=== PATIENT | male | born 1965 | race Caucasian/White ===

== ENCOUNTER → 2017-02-10 | Outpatient (CLI) | payer BC, SELFPAY | PROVIDERS: Family Provider Nurse Practitioner Family; Referring Provider Nurse Practitioner Family; Visit Provider Nurse Practitioner Family | DX: M79.89 Other specified soft tissue disorders (principal) | CPT/HCPCS: 73130 ==

== ENCOUNTER → 2017-04-04 13:34 | Outpatient (CLI) | payer BC, SELFPAY ==
--- NOTE | 2017-04-04 13:47 | XR_ITS ---
XR hip BI w PEL1V CLINICAL INDICATION: ITS.REASON: hip pain ORDERING PHYSICIAN: Gloria Warren PATIENT AGE: 51 years COMPARISON: None FINDINGS: No fracture or dislocation. No lytic or blastic change. Degenerative change IMPRESSION: Negative bilateral hips
[2017-04-04 15:33] LABS: Alanine Aminotransferase 40 U/L (12-78); Albumin Level 4.1 gm/dL (3.4-5.0); Albumin/Globulin Ratio 1.1 (1.1-1.8); Alkaline Phosphatase 66 U/L (46-116); Anion Gap 12.8 mEq/L (5-15); Aspartate Amino Transferase 15 U/L (15-37); Bilirubin,Total 0.3 mg/dL (0.2-1.0); Blood Urea Nitrogen 15 mg/dL (7-18); Calcium 9.3 mg/dL (8.5-10.1); Carbon Dioxide 28 mmol/L (21.0-32.0); Chloride 101 mmol/L (98-107); Chol/HDL Ratio 7.8 (1-3.5); Cholesterol 242 mg/dL (140-200); Estimated Glomerular Filt Rate 58 ml/min (>60); GFR (African American) 70 ML/MIN (>60); Globulin 3.6 gm/dl (1.3-3.2); Glucose 249 mg/dL (74-106); HDL Cholesterol 31 mg/dL (27-67); Potassium 4.8 mmoL/L (3.5-5.1); Sodium 137 mmol/L (136-145); Total Protein,Serum 7.7 gm/dL (6.4-8.2)
[2017-04-04 15:41] LABS: Triglycerides 742 mg/dL (30-200)
== END ==
PROVIDERS: PCP Nurse Practitioner Family; Visit Provider Nurse Practitioner Family
DX: E78.5 Hyperlipidemia, unspecified (principal); N28.9 Disorder of kidney and ureter, unspecified; R52 Pain, unspecified
CPT/HCPCS: 36415; 73521; 80053; 80061

== ENCOUNTER → 2017-04-27 17:14 | Outpatient (REF) | payer BC, SELFPAY ==
[2017-04-27 19:30] LABS: Hemoglobin A1C 9.4 % (0.0-7.0)
== END ==
LOC: LAB 17:14
PROVIDERS: Visit Provider Nurse Practitioner Family
DX: E11.9 Type 2 diabetes mellitus without complications (principal)
CPT/HCPCS: 83036

== ENCOUNTER → 2017-05-18 09:08 | Outpatient (CLI) | payer BC, MEDICAID, SELFPAY | PROVIDERS: Family Provider Nurse Practitioner Family; PCP Nurse Practitioner Family; Visit Provider Emergency Medicine | DX: Z71.3 Dietary counseling and surveillance (principal); E11.9 Type 2 diabetes mellitus without complications | CPT/HCPCS: 97802; G0108 ==

== ENCOUNTER → 2017-07-07 07:59 | Outpatient (CLI) | payer MEDICAID, SELFPAY ==
[2017-07-07 08:21] LABS: Blood Urea Nitrogen 21 mg/dL (7-18); Creatinine,Serum 1.55 mg/dL (0.70-1.30); Estimated Glomerular Filt Rate 47 ml/min (>60); GFR (African American) 57 ML/MIN (>60)
[2017-07-07 08:27] LABS: Alanine Aminotransferase 44 U/L (12-78); Albumin Level 3.7 gm/dL (3.4-5.0); Alkaline Phosphatase 56 U/L (46-116); Aspartate Amino Transferase 19 U/L (15-37); Bilirubin,Direct 0.1 mg/dL (0.0-0.2); Bilirubin,Indirect 0.2 mg/dL (0.0-0.9); Bilirubin,Total 0.3 mg/dL (0.2-1.0); Chol/HDL Ratio 5.3 (1-3.5); Cholesterol 168 mg/dL (140-200); HDL Cholesterol 32 mg/dL (27-67); LDL Cholesterol 71 mg/dL (0-130); Total Protein,Serum 7.6 gm/dL (6.4-8.2); Triglycerides 327 mg/dL (30-200); VLDL Cholesterol 65 mg/dL (0-40)
--- NOTE | 2017-07-07 08:44 | MR_ITS ---
MR foot RT wo con Ordering Physician: Gloria Warren Patient Age: 52 years: Male HISTORY: ITS.REASON: foot mass - knot upon the dorsal aspect of right foot. This is been there for up to 3 years Ankle pain with most significant Pain is lateral side of ankle.. TECHNIQUE: Multiplanar multisequence imaging performed on 1.5 [place] MR. COMPARISON : No right foot plain film studies in PACS Plain films left foot 10/26/2006 FINDINGS Prominent fluid is seen surrounding the extensor hallucis longus tendon-here along the dorsal aspect of the foot and extending into to the ankle. This fluid collection becomes most pronounced at the dorsal aspect mid foot were skin marker was placed. This correlates with the palpable abnormality. Fluid in this tendon and tapers following the tendon down to the level of the head of first metatarsal..... The tendon itself seems to be normal size but this may reflect some inflammation or possibly synovial cyst formation about this tendon The most prominent fluid collection at filling the tendon sheath is just distal to where this extensor hallucis longus tendon passes over a abnormal large osseous fragment off the anterior aspect of ankle joint/tibia as discussed below.. Suspect this Latter features yields inflammation along this tendon sheath. --------- The other major finding in this patient are the Severe Arthritic Changes at the Right Ankle. This study was designed to evaluate the foot but sagittal coronal and oblique axial images designed for foot are included and demonstrate severe abnormalities at the ankle.: Prominent osteochondral irregularities with multiple osteochondral defect seen throughout the dome of the talus. Associated reactive bone signal changes throughout the dome of the talus with cartilage loss at the ankle mortise. Chondral thinning and scuffing ankle joint..... Also note a reactive bone signal changes at distal tibia & at the tip of the lateral malleolus at the lateral ankle joint related to the severe arthritic changes here. Even more striking is the large osseous fragment (21 mm ) seen off anterior aspect of the distal tibia and ankle joint,. This may reflect an old fracture and currently resides superior to the neck and distal talus on sagittal image 14. Period on question there may been old fracture off the anterior margin of the distal talus versus large dystrophic bone formation. The abnormal talar dome seems slightly anteriorly offset relative to the distal tibia which may reflect some laxity which is developed with arthritic changes here Also striking is the prominent fragmented dystrophic bone or fragmentation old trauma at anterior aspect of the distal fibula. Sagittal image 8 and 7. The main osseous fragment here measuring 24 mm height.. This requires clinical and correlation. Is there history of diabetes as these could reflect developing Charcot/ neuropathic changes. Plain film correlation of bilateral foot and ankle. Suggest podiatry follow-up There is soft tissue edema overlying this lateral malleolus and continuing into the lateral aspect of lateral foot. The peroneal brevis and longus tendons appear intact. There at the medial ankle the tibialis posterior tendon on appears intact overall although does have a slightly hartman ill-defined appearance just as it attaches onto the navicular but overall I believe it is intact ------IMPRESSION-------- 1. The palpable area dorsal aspect of right foot reflects prominent fluid surrounding the extensor hallucis longus tendon-. This likely due to due to inflammation or tendon and tendon sheath as it it passes over the abnormal large bone fragment anterior aspect of tibia described below.. (Less likely synovial cyst formation.) 2. More striking findings in the aubrey
== END ==
PROVIDERS: Internal Medicine Cardiovascular Disease; Family Provider Nurse Practitioner Family; PCP Nurse Practitioner Family; Visit Provider Nurse Practitioner Family
DX: R22.40 Localized swelling, mass and lump, unspecified lower limb (principal); M79.671 Pain in right foot
CPT/HCPCS: 36415; 73718; 80061; 80076; 82565; 84520

== ENCOUNTER 2017-08-15 15:17 | Emergency (ER) | payer MEDICAID, SELFPAY ==
[2017-08-15 15:23] VITALS: BP 180/95; PULSE 74; RESP 18; TEMP 36.3; O2SAT 96; BMI 31.0
--- NOTE | 2017-08-15 15:57 | HMH.EDEYEP ---
ED Disposition Clinical Impression: Foreign body of left eye, Corneal abrasion, left Disposition: Home, Self-Care Condition on Discharge: Fair Additional Instructions: 1- cipro eye drops q 4 2- cold compresses. 3- see Dr Salazar in the morning. 4- return if not better or new sx. Prescriptions: Ciprofloxacin HCl [Ciprofloxacin 0.3% Ophth Soln] 1 - 2 drops OP Q4HWA #1 ml Referrals: Gloria Warren APRN [Primary Care Provider] - - Critical Care Critical Care Time: No Attestation: On 08/15/17, the high probability of a clinically significant, sudden or life threatening deterioration of the following system(s) required my full and direct attention, intervention and personal management. The time I documented below is in addition to time spent performing reported procedures but includes the following listed in this critical care notation. Medical Decision Making - Teddy Inquiry Pt receiving controlled substance: No Teddy was queried for this patient: No Vital Signs: 08/15/17 15:23 Temperature 97.4 F L Temperature Source Oral Pulse Rate [Right Radial] 74 Respiratory Rate 18 Blood Pressure [Right Arm] 180/95 Blood Pressure Mean [Right Arm] 123 Blood Pressure Source [Right Arm] Automatic Cuff Blood Pressure Position [Right Arm] Sitting 02 Sat by Pulse Oximetry 96 Oxygen Delivery Method Room Air Medical Decision Narrative: Using tetracaine and fluorescein stain with direct visualization I removed a dark foreign body with a Q-tip. The patient felt better instantly. he was instructed for Cipro ofloxacin eyedrop every 4 hours until seen by his forcer maker Dr. Mullins in the morning. Eye Problem HPI - General Chief complaint: Eye Problems Stated complaint: AO [id number] FB in left eye Time Seen by Provider: 08/15/17 15:25 Mode of Arrival: Ambulatory Limitations: No Limitations Description of Symptoms (Recalled from ER Triage Doc. by RN): Foreign object left eye - History of Present Illness HPI Narrative: 52 years old white male who claims that 5 days ago while he was folding laundry something got in his eye. He went to see his primary care physician Chin Warren who sent him to the ED. he has an eye doctor but he does not like to go to [facility]. He denies blurry vision diplopia or eye discharge. chief complaint: foreign body Onset (ago): day(s) (5 days) Onset description: sudden Duration: constant Location: left eye Eye Symptoms: foreign body sensation Place: home Mechanism: none Associated symptoms: none Treatments Prior to Arrival: none - Related Data Patient tetanus UTD: No Previous Rx's Medication Instructions Recorded fenofibric acid (choline) 45 mg 45 mg PO QHS #90 cap 04/11/17 capsule,delayed release aspirin 81 mg tablet,delayed 81 mg PO DAILY #90 tab 05/11/17 release atorvastatin 80 mg tablet 80 mg PO DAILY #90 tab 05/11/17 bupropion HCl SR 150 mg tablet,12 150 mg PO BID #180 tab 05/11/17 hr sustained-release carvedilol 25 mg tablet 25 mg PO BID #180 tab 05/11/17 clopidogrel 75 mg tablet 75 mg PO DAILY #90 tab 05/11/17 glipizide 5 mg tablet 5 mg PO BID #180 tab 05/11/17 losartan 100 1 tab PO DAILY #90 tab 05/11/17 mg-hydrochlorothiazide 25 mg tablet amlodipine 5 mg tablet 5 mg PO DAILY #90 tab 06/29/17 Ciprofloxacin HCl [Ciprofloxacin 1 - 2 drops OP Q4HWA #1 ml 08/15/17 0.3% Ophth Soln] isosorbide mononitrate ER 60 mg 60 mg PO QAM #90 tab 08/15/17 tablet,extended release 24 hr metformin 1,000 mg tablet 1,000 mg PO BID #180 tab 08/15/17 Allergies Allergy/AdvReac Type Severity Reaction Status Date / Time No Known Allergies Allergy Verified 08/15/17 14:31 [facility] History I have reviewed the patient's past medical history: Yes Medical History: Reports:: Coronary Artery Disease, Diabetes Mellitus Type 2, Hyperlipidemia, Hypertension Other Surgeries: Yes: Cardiac Surgery, Coronary Stent (X5), Other Amputation: No Fractures: No Comment: VASECTOMY -
--- NOTE | 2017-08-15 16:00 | ED_ITS ---
ED Disposition Clinical Impression: Foreign body of left eye, Corneal abrasion, left Disposition: Home, Self-Care Condition on Discharge: Fair Additional Instructions: 1- cipro eye drops q 4 2- cold compresses. 3- see Dr Salazar in the morning. 4- return if not better or new sx. Prescriptions: Ciprofloxacin HCl [Ciprofloxacin 0.3% Ophth Soln] 1 - 2 drops OP Q4HWA #1 ml Referrals: Gloria Warren APRN [Primary Care Provider] - - Critical Care Critical Care Time: No Attestation: On 08/15/17, the high probability of a clinically significant, sudden or life threatening deterioration of the following system(s) required my full and direct attention, intervention and personal management. The time I documented below is in addition to time spent performing reported procedures but includes the following listed in this critical care notation. Medical Decision Making - Teddy Inquiry Pt receiving controlled substance: No Teddy was queried for this patient: No Vital Signs: 08/15/17 15:23 Temperature 97.4 F L Temperature Source Oral Pulse Rate [Right Radial] 74 Respiratory Rate 18 Blood Pressure [Right Arm] 180/95 Blood Pressure Mean [Right Arm] 123 Blood Pressure Source [Right Arm] Automatic Cuff Blood Pressure Position [Right Arm] Sitting 02 Sat by Pulse Oximetry 96 Oxygen Delivery Method Room Air Medical Decision Narrative: Using tetracaine and fluorescein stain with direct visualization I removed a dark foreign body with a Q-tip. The patient felt better instantly. he was instructed for Cipro ofloxacin eyedrop every 4 hours until seen by his guest experience captain Dr. Mullins in the morning. Eye Problem HPI - General Chief complaint: Eye Problems Stated complaint: AO [id number] FB in left eye Time Seen by Provider: 08/15/17 15:25 Mode of Arrival: Ambulatory Limitations: No Limitations Description of Symptoms (Recalled from ER Triage Doc. by RN): Foreign object left eye - History of Present Illness HPI Narrative: 52 years old white male who claims that 5 days ago while he was folding laundry something got in his eye. He went to see his primary care physician Chin Warren who sent him to the ED. he has an eye doctor but he does not like to go to [facility]. He denies blurry vision diplopia or eye discharge. chief complaint: foreign body Onset (ago): day(s) (5 days) Onset description: sudden Duration: constant Location: left eye Eye Symptoms: foreign body sensation Place: home Mechanism: none Associated symptoms: none Treatments Prior to Arrival: none - Related Data Patient tetanus UTD: No Previous Rx's Medication Instructions Recorded fenofibric acid (choline) 45 mg 45 mg PO QHS #90 cap 04/11/17 capsule,delayed release aspirin 81 mg tablet,delayed 81 mg PO DAILY #90 tab 05/11/17 release atorvastatin 80 mg tablet 80 mg PO DAILY #90 tab 05/11/17 bupropion HCl SR 150 mg tablet,12 150 mg PO BID #180 tab 05/11/17 hr sustained-release carvedilol 25 mg tablet 25 mg PO BID #180 tab 05/11/17 clopidogrel 75 mg tablet 75 mg PO DAILY #90 tab 05/11/17 glipizide 5 mg tablet 5 mg PO BID #180 tab 05/11/17 losartan 100 1 tab PO DAILY #90 tab 05/11/17 mg-hydrochlorothiazide 25 mg tablet amlodipine 5 mg tablet 5 mg PO DAILY #90 tab 06/29/17 Ciprofloxacin HCl [Ciprofloxacin 1 - 2 drops OP Q
--- NOTE | 2017-08-15 16:10 | PC.NURSE ---
appt with dr Salazar on 08/16/17 at 0900 @ [facility]
[2017-08-15 16:19] VITALS: BP 146/83; PULSE 63; RESP 18; TEMP 36.7; O2SAT 98
== END 2017-08-15 16:15 | disposition home or self-care (01) ==
PROVIDERS: Emergency Provider Emergency Medicine; Family Provider Nurse Practitioner Family; PCP Nurse Practitioner Family
DX: S05.02XA Injury of conjunctiva and corneal abrasion without foreign body, left eye, initial encounter (principal); Z79.82 Long term (current) use of aspirin; F17.210 Nicotine dependence, cigarettes, uncomplicated
CPT/HCPCS: 99281

== ENCOUNTER → 2017-08-28 11:26 | Outpatient (CLI) | payer MEDICAID, SELFPAY ==
--- NOTE | 2017-08-28 11:38 | XR_ITS ---
XR foot wt bearing RT 3V HISTORY: Pain, cyst, ITS.REASON: cyst ORDERING PHYSICIAN: Lizzie Olson DPM PATIENT AGE: 52 years COMPARISON: None FINDINGS: There is a prominent lobulated calcific density along the anterior aspect of the ankle joint measuring 2.8 x 2.2 cm. This is well-circumscribed and described on previous MRI. An additional bony fragment is present along the lateral aspect of the ankle joint measuring 2.3 cm. This is better demonstrated on the MRI. Present in the anterior aspect of the mid foot anterior to the cuneiforms consistent with a fluid collection as seen on MRI. Irregularity of the talar dome. Mild hypertrophic change present metatarsal. There is osteoarthritis of the ankle joint with decrease in space. IMPRESSION: Prominent lobulated bony fragments along the anterior and lateral aspect of the ankle joint Soft tissue swelling of the midfoot. Osteoarthritis ankle with cortical irregularity of the dome of the talus with osteosclerosis
--- NOTE | 2017-08-28 11:38 | XR_ITS ---
XR foot wt bearing LT 3V HISTORY: Foot cyst ITS.REASON: cyst ORDERING PHYSICIAN: Lizzie Olson DPM PATIENT AGE: 52 years COMPARISON: 10/26/2006 FINDINGS: No fracture or dislocation. No lytic or blastic change. There is normal mineralization.. The joint spaces are well-preserved. No significant degenerative/arthritic changes. No erosive changes evident. There is minimal spurring along the anterior aspect of the talus IMPRESSION: Negative, no acute finding
--- NOTE | 2017-08-28 11:38 | XR_ITS ---
XR ankle wt bearing LT min 3V HISTORY: ITS.REASON: cyst ORDERING PHYSICIAN: Lizzie Olson DPM PATIENT AGE: 52 years Comparison: None FINDINGS: No fracture or dislocation. No lytic or blastic change. There is normal mineralization.. The joint spaces are well-preserved. No significant degenerative/arthritic changes. No erosive changes evident. IMPRESSION: Negative ankle, no acute finding
--- NOTE | 2017-08-28 11:38 | XR_ITS ---
XR ankle wt bearing RT min 3V HISTORY: ITS.REASON: cyst ORDERING PHYSICIAN: Lizzie Olson DPM PATIENT AGE: 52 years Comparison: None FINDINGS: There is a prominent lobulated calcific density along the anterior aspect of the ankle joint measuring 2.8 x 2.2 cm. This is well-circumscribed and described on previous MRI. An additional bony fragment is present along the lateral aspect of the ankle joint measuring 2.3 cm. This is better demonstrated on the MRI. Present in the anterior aspect of the mid foot anterior to the cuneiforms consistent with a fluid collection as seen on MRI. Irregularity of the talar dome. Mild hypertrophic change present metatarsal. There is osteoarthritis of the ankle joint with decrease in space. IMPRESSION: Prominent lobulated bony fragments along the anterior and lateral aspect of the ankle joint Soft tissue swelling of the midfoot. Osteoarthritis ankle with cortical irregularity of the dome of the talus with osteosclerosis
== END ==
PROVIDERS: Visit Provider Podiatrist
DX: M67.471 Ganglion, right ankle and foot (principal)
CPT/HCPCS: 73610; 73630

== ENCOUNTER → 2017-09-05 08:32 | Outpatient (CLI) | payer MEDICAID, SELFPAY ==
--- NOTE | 2017-09-05 08:34 | US_ITS ---
US Arterial Ankle Brachial Ind COMPARISON: None HISTORY: Diabetes, claudication both lower legs, current smoking history hyperlipidemia hypertension rest pain both feet TECHNIQUE: Segmental blood pressure test and Doppler waveforms of the lower extremities FINDINGS: The blood pressure right arm is 139. Pressures in the right leg show the thigh be 138 calf 146 posterior tibial 163 and dorsalis pedis 146. The digital pressure is 140. Doppler waveforms are essentially normal. The right JOANNA is 1.17. The left brachial pressure is 134. Pressures left leg show the thigh be 146 calf 150 posterior tibial 163 and dorsalis pedis 152. The digital pressure is 159. Doppler waveforms appear normal. The left JOANNA is 1.17 IMPRESSION: Normal study
== END ==
PROVIDERS: Family Provider Nurse Practitioner Family; PCP Emergency Medicine; Visit Provider Podiatrist
DX: R42 Dizziness and giddiness (principal)
CPT/HCPCS: 93922

== ENCOUNTER → 2017-09-21 15:53 | Outpatient (CLI) | payer MEDICAID, SELFPAY ==
[2017-09-21 15:58] LABS: Microscopic, Urine URINE MICROSCOPIC (MICROSCOPIC)
[2017-09-21 16:10] LABS: Basophils % 0.5 % (0.1-2.0); Eosinophils # 0.2 K/mm3 (0.0-0.4); Eosinophils % 2.8 % (0.1-12.0); Hematocrit 39.8 % (42.0-52.0); Hemoglobin 13.4 g/dL (14.1-18.0); Lymphocytes # 1.9 K/mm3 (0.7-4.5); Lymphocytes % 22.4 K/mm3 (10-50); Mean Corpuscular HGB Conc 33.7 g/dL (31.8-35.4); Mean Corpuscular Hemoglobin 31.9 pg (27.0-31.2); Mean Corpuscular Volume 94.8 fl (80-94); Mean Platelet Volume 7.2 fl (7.4-10.4); Monocytes # 0.5 K/mm3 (0.1-1.0); Monocytes % 5.6 % (1.7-9.3); Neutrophils # 5.9 K/mm3 (1.8-7.8); Neutrophils % 68.7 % (37.0-80.0); Platelet Count 289 K/mm3 (142-424); Red Blood Count 4.19 M/mm3 (4.60-6.20); Red Cell Distribution Width 13.2 % (11.5-17.5); White Blood Count 8.6 K/mm3 (4.8-10.8)
[2017-09-21 16:25] LABS: Appearance,Urine CLEAR (Clear); Bilirubin,Urine Negative (Negative); Blood, Urine Negative (Negative); Color,Urine YELLOW (Yellow); Glucose,Urine (UA) 3+ (Negative); Ketones,Urine Negative (Negative); Leukocyte Esterase,Urine Negative (Negative); Nitrate,Urine Negative (Negative); Protein,Urine Negative (Negative); Specific Gravity, Urine 1.025 (1.005-1.030); Urobilinogen,Urine 0.2 EU/dl (0.2)
[2017-09-21 17:02] LABS: Bacteria,Urine Trace /lpf; Mucus,Urine 1+ /lpf; RBC,Urine Occasional #/hpf (0-3); Squamous Epithelial Cell,Urine Occasional #/hpf (0-5); WBC,Urine Occasional #/hpf (0-3)
[2017-09-21 17:19] LABS: Anion Gap 9.4 mEq/L (5-15); Blood Urea Nitrogen 26 mg/dL (7-18); Carbon Dioxide 30 mmol/L (21.0-32.0); Chloride 103 mmol/L (98-107); Creatinine,Serum 1.38 mg/dL (0.70-1.30); Estimated Glomerular Filt Rate 54 ml/min (>60); GFR (African American) 65 ML/MIN (>60); Glucose 284 mg/dL (74-106); Phosphorous 3.7 mg/dL (2.4-4.9); Potassium 4.4 mmoL/L (3.5-5.1); Sodium 138 mmol/L (136-145)
[2017-09-21 19:07] LABS: Creatinine,Urine Random 148 mg/dL (20-320); Total Protein,Urine Random 15.6 mg/dL (0.0-11.9)
[2017-09-23 18:05] LABS: Vitamin D 25 Hydroxy 27.7 ng/mL (30.0-100.0)
[2017-09-24 20:31] LABS: Parathyroid Hormone Intact 28 pg/mL (15-65)
== END ==
PROVIDERS: Visit Provider Internal Medicine Nephrology
DX: N18.3 Chronic kidney disease, stage 3 (moderate) (principal)
CPT/HCPCS: 36415; 80069; 81001; 82570; 82652; 83970; 84155; 85025

== ENCOUNTER → 2017-09-25 13:31 | Outpatient (POV) | payer MEDICAID, SELFPAY | PROVIDERS: Family Provider Nurse Practitioner Family; PCP Emergency Medicine; Visit Provider Internal Medicine Nephrology | DX: Z00.00 Encounter for general adult medical examination without abnormal findings (principal) ==

== ENCOUNTER → 2017-10-12 07:05 | Outpatient (CLI) | payer MEDICAID, SELFPAY ==
[2017-10-12 08:03] LABS: Alanine Aminotransferase 39 U/L (12-78); Alkaline Phosphatase 86 U/L (46-116); Bilirubin,Direct 0.1 mg/dL (0.0-0.2); Bilirubin,Indirect 0.1 mg/dL (0.0-0.9); Bilirubin,Total 0.2 mg/dL (0.2-1.0); Chol/HDL Ratio 4.3 (1-3.5); Cholesterol 149 mg/dL (140-200); HDL Cholesterol 35 mg/dL (27-67); LDL Cholesterol 55 mg/dL (0-130); Total Protein,Serum 7.6 gm/dL (6.4-8.2); Triglycerides 297 mg/dL (30-200); VLDL Cholesterol 59 mg/dL (0-40)
[2017-10-12 08:13] LABS: Aspartate Amino Transferase 10 U/L (15-37)
== END ==
PROVIDERS: Urology; Family Provider Nurse Practitioner Family; PCP Emergency Medicine; Visit Provider Internal Medicine Cardiovascular Disease
DX: E78.2 Mixed hyperlipidemia (principal); I11.9 Hypertensive heart disease without heart failure
CPT/HCPCS: 36415; 80061; 80076

== ENCOUNTER → 2017-11-03 13:57 | Outpatient (CLI) | payer MEDICAID, SELFPAY ==
[2017-11-03 19:16] LABS: Hemoglobin A1C 7.8 % (0.0-7.0)
== END ==
PROVIDERS: Visit Provider Nurse Practitioner Family
DX: E11.9 Type 2 diabetes mellitus without complications (principal)
CPT/HCPCS: 83036

== ENCOUNTER → 2017-11-06 08:58 | Outpatient (POV) | payer MEDICAID, SELFPAY | PROVIDERS: Family Provider Nurse Practitioner Family; PCP Emergency Medicine; Visit Provider Specialist | DX: M79.604 Pain in right leg (principal); M79.605 Pain in left leg; M79.601 Pain in right arm | CPT/HCPCS: 95886; 95911 ==

== ENCOUNTER → 2017-11-06 10:18 | Outpatient (CLI) | payer MEDICAID, SELFPAY ==
[2017-11-06 10:50] LABS: Basophils # 0.1 K/mm3 (0-0.2); Basophils % 0.6 % (0.1-2.0); Eosinophils # 0.3 K/mm3 (0.0-0.4); Hematocrit 40.7 % (42.0-52.0); Hemoglobin 13.6 g/dL (14.1-18.0); Lymphocytes # 2.4 K/mm3 (0.7-4.5); Lymphocytes % 27.3 K/mm3 (10-50); Mean Corpuscular HGB Conc 33.4 g/dL (31.8-35.4); Mean Corpuscular Hemoglobin 32.5 pg (27.0-31.2); Mean Corpuscular Volume 97.4 fl (80-94); Mean Platelet Volume 7.1 fl (7.4-10.4); Monocytes # 0.4 K/mm3 (0.1-1.0); Monocytes % 5.1 % (1.7-9.3); Neutrophils # 5.5 K/mm3 (1.8-7.8); Platelet Count 274 K/mm3 (142-424); Red Blood Count 4.18 M/mm3 (4.60-6.20); White Blood Count 8.7 K/mm3 (4.8-10.8)
[2017-11-06 10:51] LABS: Hemoglobin A1C 7.6 % (0.0-7.0)
[2017-11-06 11:18] LABS: Alanine Aminotransferase 46 U/L (12-78); Albumin Level 4.1 gm/dL (3.4-5.0); Albumin/Globulin Ratio 1.2 (1.1-1.8); Alkaline Phosphatase 74 U/L (46-116); Anion Gap 14.7 mEq/L (5-15); Aspartate Amino Transferase 14 U/L (15-37); Bilirubin,Total 0.2 mg/dL (0.2-1.0); Blood Urea Nitrogen 24 mg/dL (7-18); Calcium 9.4 mg/dL (8.5-10.1); Carbon Dioxide 29 mmol/L (21.0-32.0); Chloride 105 mmol/L (98-107); Creatinine,Serum 1.29 mg/dL (0.70-1.30); Estimated Glomerular Filt Rate 58 ml/min (>60); GFR (African American) 70 ML/MIN (>60); Globulin 3.4 gm/dl (1.3-3.2); Glucose 245 mg/dL (74-106); Potassium 4.7 mmoL/L (3.5-5.1); Sodium 144 mmol/L (136-145); Thyroid Stimulating Hormone 2.23 uIU/ml (0.358-3.740); Total Protein,Serum 7.5 gm/dL (6.4-8.2)
[2017-11-08 07:48] LABS: Folate 15.9 ng/mL (>3.0); Vitamin B12 274 pg/mL (232-1245)
[2017-11-08 15:19] LABS: Albumin 4.2 g/dL (2.9-4.4); Alpha-1-Globulin 0.2 g/dL (0.0-0.4); Gamma Globulin 1.1 g/dL (0.4-1.8); Protein, Total 7.7 g/dL (6.0-8.5)
== END ==
PROVIDERS: Family Provider Nurse Practitioner Family; PCP Emergency Medicine; Visit Provider Specialist
DX: E11.9 Type 2 diabetes mellitus without complications (principal); G62.9 Polyneuropathy, unspecified; M79.601 Pain in right arm; M79.604 Pain in right leg; M79.605 Pain in left leg
CPT/HCPCS: 36415; 80053; 82607; 82746; 83036; 84155; 84165; 84443; 85025

== ENCOUNTER → 2018-03-23 12:56 | Outpatient (CLI) | payer MEDICAID, SELFPAY ==
--- NOTE | 2018-03-23 13:00 | US_ITS ---
US kidney retroperitoneal comp HISTORY: ITS.REASON: CKD III ORDERING PHYSICIAN: Magno Song PATIENT AGE: 52 years Comparison: None FINDINGS: RIGHT KIDNEY:Unremarkable. Normal size and echogenicity. No hydronephrosis The right kidney measures 12 x 4 x 8 cm. No cortical thinning LEFT KIDNEY:Unremarkable. No hydronephrosis. Normal size and echogenicity. The left kidney measures 12 x 6 x 6 cm. There is some mild cortical scarring along the lower pole OTHER FINDINGS: No other pertinent findings IMPRESSION: Mild cortical scarring along the lower pole the left kidney otherwise negative bilateral renal ultrasound. No hydronephrosis
[2018-03-23 13:35] LABS: Microscopic, Urine URINE MICROSCOPIC (MICROSCOPIC)
[2018-03-23 14:16] LABS: Appearance,Urine CLEAR (Clear); Bilirubin,Urine Negative (Negative); Blood, Urine Negative (Negative); Color,Urine YELLOW (Yellow); Glucose,Urine (UA) 1+ (Negative); Ketones,Urine Negative (Negative); Leukocyte Esterase,Urine Negative (Negative); Nitrate,Urine Negative (Negative); PH,Urine 5.5 (5.0-8.5); Protein,Urine TRACE (Negative); Specific Gravity, Urine >= 1.030 (1.005-1.030); Urobilinogen,Urine 0.2 EU/dl (0.2)
[2018-03-23 14:19] LABS: Basophils # 0.1 K/mm3 (0-0.2); Basophils % 0.8 % (0.1-2.0); Eosinophils # 0.3 K/mm3 (0.0-0.4); Eosinophils % 3.1 % (0.1-12.0); Hematocrit 46.1 % (42.0-52.0); Hemoglobin 14.6 g/dL (14.1-18.0); Lymphocytes # 2.6 K/mm3 (0.7-4.5); Lymphocytes % 29.7 % (10-50); Mean Corpuscular HGB Conc 31.8 g/dL (31.8-35.4); Mean Corpuscular Hemoglobin 31.8 pg (27.0-31.2); Mean Corpuscular Volume 100.1 fl (80-94); Mean Platelet Volume 7.5 fl (7.4-10.4); Monocytes # 0.4 K/mm3 (0.1-1.0); Monocytes % 5.1 % (1.7-9.3); Neutrophils # 5.4 K/mm3 (1.8-7.8); Neutrophils % 61.3 % (37.0-80.0); Platelet Count 287 K/mm3 (142-424); Red Cell Distribution Width 13.3 % (11.5-17.5); White Blood Count 8.8 K/mm3 (4.8-10.8)
[2018-03-23 14:32] LABS: Creatinine,Urine Random 315 mg/dL (20-320)
[2018-03-23 15:09] LABS: Bacteria,Urine 1+ /lpf; WBC,Urine Occasional #/hpf (0-3)
[2018-03-23 15:52] LABS: Albumin Level 3.9 gm/dL (3.4-5.0); Anion Gap 15.8 mEq/L (5-15); Blood Urea Nitrogen 21 mg/dL (7-18); Calcium 9.6 mg/dL (8.5-10.1); Carbon Dioxide 26 mmol/L (21.0-32.0); Chloride 100 mmol/L (98-107); Creatinine,Serum 1.27 mg/dL (0.70-1.30); Estimated Glomerular Filt Rate 59 ml/min (>60); GFR (African American) 72 ML/MIN (>60); Glucose 193 mg/dL (74-106); Phosphorous 3.4 mg/dL (2.4-4.9); Sodium 137 mmol/L (136-145); Uric Acid 6.3 mg/dL (2.6-7.2)
[2018-03-23 15:53] LABS: Potassium 4.8 mmoL/L (3.5-5.1)
[2018-03-24 13:00] LABS: Microalbumin, Urine 127.7 ug/mL (Not Estab.)
[2018-03-26 11:05] LABS: Vitamin D 25 Hydroxy 8.7 ng/mL (30.0-100.0)
[2018-03-26 14:16] LABS: Calcium, Ionized 5.3 mg/dL (4.5-5.6)
[2018-03-27 08:08] LABS: Parathyroid Hormone Intact 46 pg/mL (15-65)
== END ==
PROVIDERS: PCP Nurse Practitioner Family; Visit Provider Internal Medicine Nephrology
DX: N18.3 Chronic kidney disease, stage 3 (moderate) (principal)
CPT/HCPCS: 36415; 76770; 80069; 81001; 82043; 82330; 82570; 82652; 83970; 84155; 84550; 85025

== ENCOUNTER → 2018-03-29 15:37 | Outpatient (POV) | payer MEDICAID, SELFPAY | PROVIDERS: Visit Provider Internal Medicine Nephrology | DX: Z00.00 Encounter for general adult medical examination without abnormal findings (principal) ==

== ENCOUNTER → 2019-01-25 08:59 | Outpatient (CLI) | payer OTHER, SELFPAY ==
[2019-01-25 09:04] LABS: Microscopic, Urine URINE MICROSCOPIC (MICROSCOPIC)
[2019-01-25 09:31] LABS: Basophils # 0.1 K/mm3 (0-0.2); Basophils % 0.7 % (0.1-2.0); Eosinophils # 0.3 K/mm3 (0.0-0.4); Eosinophils % 3.8 % (0.1-12.0); Hematocrit 40.8 % (42.0-52.0); Hemoglobin 13.2 g/dL (14.1-18.0); Lymphocytes # 2.1 K/mm3 (0.7-4.5); Lymphocytes % 24.1 % (10-50); Mean Corpuscular HGB Conc 32.4 g/dL (31.8-35.4); Mean Corpuscular Hemoglobin 31.8 pg (27.0-31.2); Mean Corpuscular Volume 97.9 fl (80-94); Mean Platelet Volume 7.7 fl (7.4-10.4); Monocytes # 0.4 K/mm3 (0.1-1.0); Monocytes % 5.1 % (1.7-9.3); Neutrophils # 5.7 K/mm3 (1.8-7.8); Neutrophils % 66.3 % (37.0-80.0); Platelet Count 339 K/mm3 (142-424); Red Blood Count 4.17 M/mm3 (4.60-6.20); Red Cell Distribution Width 12.9 % (11.5-17.5); White Blood Count 8.6 K/mm3 (4.8-10.8)
[2019-01-25 09:38] LABS: Creatinine,Urine Random 325 mg/dL (20-320); Total Protein,Urine Random 71.7 mg/dL (0.0-11.9)
[2019-01-25 10:01] LABS: Appearance,Urine CLEAR (Clear); Bilirubin,Urine Negative (Negative); Blood, Urine Negative (Negative); Color,Urine DK YELLOW (Yellow); Glucose,Urine (UA) TRACE (Negative); Ketones,Urine Negative (Negative); Leukocyte Esterase,Urine Negative (Negative); Nitrate,Urine Negative (Negative); Protein,Urine 1+ (Negative); Specific Gravity, Urine >= 1.030 (1.005-1.030); Urobilinogen,Urine 0.2 EU/dl (0.2)
[2019-01-25 10:09] LABS: Amorphous Sediment,Urine Trace /lpf; Squamous Epithelial Cell,Urine Occasional #/hpf (0-5); WBC,Urine Occasional #/hpf (0-3)
[2019-01-25 10:58] LABS: Albumin Level 3.7 gm/dL (3.4-5.0); Anion Gap 13.7 mEq/L (5-15); Blood Urea Nitrogen 21 mg/dL (7-18); Calcium 9.3 mg/dL (8.5-10.1); Carbon Dioxide 28 mmol/L (21.0-32.0); Chloride 99 mmol/L (98-107); Creatinine,Serum 1.44 mg/dL (0.70-1.30); Estimated Glomerular Filt Rate 51 ml/min (>60); GFR (African American) 62 ML/MIN (>60); Glucose 189 mg/dL (74-106); Phosphorous 3.6 mg/dL (2.4-4.9); Potassium 4.7 mmoL/L (3.5-5.1); Sodium 136 mmol/L (136-145)
[2019-01-26 17:54] LABS: Vitamin D 25 Hydroxy 10.5 ng/mL (30.0-100.0)
== END ==
PROVIDERS: Visit Provider Internal Medicine Nephrology
DX: N18.3 Chronic kidney disease, stage 3 (moderate) (principal)
CPT/HCPCS: 36415; 80069; 81001; 82570; 82652; 84155; 85025

== ENCOUNTER → 2019-01-28 14:20 | Outpatient (POV) | payer OTHER, SELFPAY | PROVIDERS: Visit Provider Internal Medicine Nephrology | DX: Z00.00 Encounter for general adult medical examination without abnormal findings (principal) ==

== ENCOUNTER → 2019-04-03 18:25 | Outpatient (CLI) | payer OTHER, SELFPAY ==
[2019-04-03 18:51] LABS: Basophils # 0.1 K/mm3 (0-0.2); Basophils % 0.8 % (0.1-2.0); Eosinophils # 0.3 K/mm3 (0.0-0.4); Eosinophils % 4.1 % (0.1-12.0); Hematocrit 42.7 % (42.0-52.0); Hemoglobin 13.7 g/dL (14.1-18.0); Lymphocytes # 2.3 K/mm3 (0.7-4.5); Lymphocytes % 27.7 % (10-50); Mean Corpuscular Hemoglobin 31.1 pg (27.0-31.2); Mean Corpuscular Volume 96.9 fl (80-94); Mean Platelet Volume 7.8 fl (7.4-10.4); Monocytes # 0.4 K/mm3 (0.1-1.0); Neutrophils # 5.1 K/mm3 (1.8-7.8); Neutrophils % 62.4 % (37.0-80.0); Platelet Count 316 K/mm3 (142-424); Red Blood Count 4.41 M/mm3 (4.60-6.20); White Blood Count 8.1 K/mm3 (4.8-10.8)
[2019-04-03 19:30] LABS: Hemoglobin A1C 8.5 % (0.0-7.0)
[2019-04-03 19:56] LABS: Alanine Aminotransferase 26 U/L (21-72); Albumin/Globulin Ratio 1.1 (1.1-1.8); Alkaline Phosphatase 71 U/L (46-116); Anion Gap 15.6 mEq/L (5-15); Bilirubin,Total 0.2 mg/dL (0.2-1.0); Blood Urea Nitrogen 27 mg/dL (7-18); Calcium 9.3 mg/dL (8.5-10.1); Carbon Dioxide 25 mmol/L (21.0-32.0); Chloride 104 mmol/L (98-107); Creatinine,Serum 1.25 mg/dL (0.70-1.30); Estimated Glomerular Filt Rate 60 ml/min (>60); GFR (African American) 73 ML/MIN (>60); Globulin 3.5 gm/dl (1.3-3.2); Glucose 193 mg/dL (74-106); Sodium 140 mmol/L (137-145); Total Protein,Serum 7.5 g/dL (6.4-8.2)
[2019-04-03 19:59] LABS: Potassium 4.6 mmoL/L (3.5-5.1)
[2019-04-03 20:00] LABS: Aspartate Amino Transferase 11 U/L (15-37)
[2019-04-05 11:01] LABS: Creatinine, Urine 156.9 mg/dL (Not Estab.); Microalbumin, Urine 120.6 ug/mL (Not Estab.)
[2019-04-05 17:18] LABS: C-Peptide 5.2 ng/mL (1.1-4.4)
== END ==
PROVIDERS: Visit Provider Nurse Practitioner Family
DX: E11.9 Type 2 diabetes mellitus without complications (principal); Z79.84 Long term (current) use of oral hypoglycemic drugs
CPT/HCPCS: 80053; 82043; 82570; 83036; 84681; 85025

== ENCOUNTER 2019-08-22 18:15 | Emergency (ER) | payer MEDICARE, OTHER, SELFPAY ==
[2019-08-22 18:16] VITALS: BP 173/91; PULSE 90; RESP 18; TEMP 36.8; O2SAT 99; BMI 31.4
--- NOTE | 2019-08-22 18:16 | ECG_ITS ---
APPROVED REPORT Exam: Resting ECG HR:89 bpm ECG Measurements Heart Rate 89 AXES PA 154 P 66 QRSd 106 QRS 19 QT 408 T 42 QTc 496 <Conclusion> Normal sinus rhythm Left atrial abnormality Nonspecific ST abnormality Prolonged QT Abnormal ECG Electronically signed by : Jarod Salter, 08/26/2019 17:15:57
--- NOTE | 2019-08-22 18:21 | CT_ITS ---
PROCEDURE: CT ANGIO CHEST CLINCIAL INDICATION: chest pain COMPARISON: No exams were available for comparison TECHNIQUE: IV Contrast: 70ML OPTIRAY 350 Axial images obtained with sagittal and coronal reformats. All CT scans at the facility use one or more dose reduction, viz: automated exposure control, ma/kV adjustment per patient size (including targeted exams where dose is matched to indication, i.e. head), or iterative reconstruction technique. FINDINGS: HEART AND MEDIASTINAL STRUCTURES: No evidence of aortic aneurysm, dissection,. No evidence of pulmonary embolus. Coronary artery calcifications are noted. Minimal pericardial thickening anteriorly. The LUNGS AND PLEURAL SPACES: COPD with scattered reticular opacities. Evidence of old granulomatous disease. Noncalcified nodules are noted. 3 mm nodule right upper lobe image 27. 3 mm subpleural nodule right upper lobe image 43. 4 mm noncalcified nodule left upper lobe image 38. 3 mm noncalcified nodule left upper lobe image 54. 5 mm noncalcified nodule left upper lobe image 63. No effusions or infiltrates. BONY STRUCTURES: Degenerative changes of the spine UPPER ABDOMEN: Fatty liver. Small amount of gas is noted within the esophagus with mild esophageal thickening nonspecific ADDITIONAL FINDINGS: No other significant abnormalities. IMPRESSION: 1. No evidence of pulmonary embolus or aortic aneurysm or dissection. 2. Multiple noncalcified pulmonary nodules. Suggest 3 month follow-up. 3. Scattered reticular opacities throughout both lungs suggesting interstitial lung disease. Follow-up high-resolution may provide further evaluation. 4. COPD with other nonacute findings as described above. Dictated by: Jose G Gray MD 08/23/2019 05:49 Electronically signed by Jose G Gray MD in [place] 08/23/2019 05:49
--- NOTE | 2019-08-22 18:24 | PC.NURSE ---
refused order for chest xray.states he wants a ct with pe protocol
--- NOTE | 2019-08-22 18:27 | CT_ITS ---
PROCEDURE: CT CHEST WO CON CLINICAL INDICATION: chest pain Chest pain, smoker COMPARISON: CT ANGIO CHEST from 08/22/2019 TECHNIQUE: Axial images obtained with sagittal and coronal reformats. All CT scans at the facility use one or more dose reduction, viz: automated exposure control, ma/kV adjustment per patient size (including targeted exams where dose is matched to indication, i.e. head), or iterative reconstruction technique. FINDINGS: HEART AND MEDIASTINAL STRUCTURES: Coronary artery calcifications and/or stents. LUNGS AND PLEURAL SPACES: Evidence of old granulomatous disease with COPD. There are scattered calcified granulomas in a fuse small pulmonary nodules which are noncalcified in better demonstrated on the subsequent chest CT with contrast. Please see that report for further description. No effusions or infiltrates. BONY STRUCTURES: No acute bony abnormalities apparent. UPPER ABDOMEN: Fatty liver. Left adrenal nodule at 1 cm which could be due to an adenoma. ADDITIONAL FINDINGS: No other significant abnormalities. IMPRESSION: Nonspecific pulmonary nodular density some which are calcified and some which are not better appreciated on the CT a of the same day. Please see that report for further description. COPD with other nonacute findings as described above Dictated by: Jose G Gray MD 08/23/2019 05:37 Electronically signed by Jose G Gray MD in [facility] 08/23/2019 05:37
[2019-08-22 18:30] LABS: Basophils # 0.1 K/mm3 (0-0.2); Basophils % 0.4 % (0.1-2.0); Eosinophils # 0.1 K/mm3 (0.0-0.4); Eosinophils % 0.6 % (0.1-12.0); Hematocrit 43.2 % (42.0-52.0); Hemoglobin 15.1 g/dL (14.1-18.0); Lymphocytes % 15.1 % (10-50); Mean Corpuscular Hemoglobin 32.8 pg (27.0-31.2); Mean Corpuscular Volume 93.7 fl (80-94); Mean Platelet Volume 7.7 fl (7.4-10.4); Monocytes # 0.6 K/mm3 (0.1-1.0); Monocytes % 4.7 % (1.7-9.3); Neutrophils # 10.2 K/mm3 (1.8-7.8); Neutrophils % 79.2 % (37.0-80.0); Platelet Count 312 K/mm3 (142-424); Red Blood Count 4.61 M/mm3 (4.60-6.20); Red Cell Distribution Width 13.1 % (11.5-17.5); White Blood Count 12.9 K/mm3 (4.8-10.8)
[2019-08-22 18:36] LABS: Chloride 99 mmol/L (98-107); Sodium 134 mmol/L (136-145)
[2019-08-22 18:37] LABS: Potassium 4.3 mmoL/L (3.5-5.1)
[2019-08-22 18:39] LABS: Blood Urea Nitrogen 18 mg/dl (9-20); Creatinine Clearance Estimated 102 mL/min (50-200); Estimated Glomerular Filt Rate 69 ml/min (>60); GFR (African American) 84 ML/MIN (>60)
[2019-08-22 18:40] LABS: Anion Gap 13.3 mEq/L (5-15); Calcium 10.4 mg/dl (8.4-10.2); Carbon Dioxide 26 mmol/L (22.0-30.0); Glucose 273 mg/dl (74-100)
[2019-08-22 18:46] VITALS: BP 165/97; PULSE 75; O2SAT 98
--- NOTE | 2019-08-22 19:09 | PC.NURSE ---
Pt returned from rad
--- NOTE | 2019-08-22 19:42 | HMH.EDCP ---
ED Disposition Clinical Impression: Atypical chest pain, Costalchondritis Clinical Impression: (Ruled Out): Corneal abrasion, left Disposition: Home, Self-Care Condition on Discharge: Good Instructions: Costochondritis Prescriptions: Nabumetone 750 mg PO BID 10 Days #20 tab Transmission Status: Pending to [id number] Referrals: Gloria Warren APRN [Primary Care Provider] - - Critical Care Critical Care Time: No Attestation: On 08/22/19, the high probability of a clinically significant, sudden or life threatening deterioration of the following system(s) required my full and direct attention, intervention and personal management. The time I documented below is in addition to time spent performing reported procedures but includes the following listed in this critical care notation. Medical Decision Making - Medical Records Medical records reviewed: Yes: I reviewed the patient's medical records. - Teddy Inquiry Pt receiving controlled substance: No Vital Signs: 08/22/19 18:16 08/22/19 18:46 Temperature 98.2 F Temperature Source Oral Pulse Rate [Radial] 90 75 Respiratory Rate 18 Blood Pressure [Right Arm] 173/91 H 165/97 H Blood Pressure Mean [Right Arm] 118 119 Blood Pressure Source [Right Arm] Automatic Cuff Automatic Cuff Blood Pressure Position [Right Arm] Sitting Sitting 02 Sat by Pulse Oximetry 99 98 Oxygen Delivery Method Room Air Room Air - Lab Data Lab results reviewed: Yes: I reviewed the patient's lab results. Lab Results 08/22/19 18:22: WBC 12.9 H, RBC 4.61, Hgb 15.1, Hct 43.2, MCV 93.7, MCH 32.8 H, MCHC 35.0, RDW 13.1, Plt Count 312, MPV 7.7, Neut % (Auto) 79.2, Lymph % (Auto) 15.1, [place] % (Auto) 4.7, Eos % (Auto) 0.6, Baso % (Auto) 0.4, Neut # (Auto) 10.2 H, Lymph # (Auto) 2.0, [place] # (Auto) 0.6, Eos # (Auto) 0.1, Baso # (Auto) 0.1 08/22/19 18:22: Sodium 134 L, Potassium 4.3, Chloride 99, Carbon Dioxide 26, Anion Gap 13.3, BUN 18, Creatinine 1.10, Estimated Creat Clear 102, Estimated GFR 69, Est GFR ( Amer) 84, Glucose 273 H, Calcium 10.4 H Result diagrams: 08/22/19 18:22 08/22/19 18:22 Orders (Tests/Meds): ED MEDICATIONS Discontinued Medications Generic Name Dose Route Start Last Admin Trade Name Jimmy PRN Reason Stop Dose Admin Aspirin 243 mg 08/22/19 18:23 08/22/19 18:25 Aspirin 81mg Chewable Tablet PO 08/22/19 18:24 243 mg ONCE ONE Administration Ioversol 70 ml 08/22/19 19:07 08/22/19 19:08 Rad-Optiray 350 100ml Vial IV 08/22/19 19:08 70 ml ONCE ONE Administration Protocol Sodium Chloride 50 ml 08/22/19 19:07 08/22/19 19:08 Rad-Ns 50ml Vial IV 08/22/19 19:08 50 ml ONCE ONE Administration Sodium Chloride 10 ml 08/22/19 19:07 08/22/19 19:08 Rad-Saline Flush 10ml Syringe IV 08/22/19 19:08 10 ml ONCE ONE Administration ORDERS Category Date Time Status CT Chest w/PE protocol [CT angio chest] Stat Cat Scan 08/22/19 18:[address] chest wo con Stat Cat Scan 08/22/19 18:27 Taken - Radiology Data #1 Image(s): Chest Preliminary Findings: Normal/NAD - CT Data CT Scan: Chest Time Received: 19:[address] Reviewed: Yes: I have viewed the radiologist's interpretation Preliminary Findings: Normal/NAD Chest Pain HPI - General Chief Complaint: Chest Pain Stated Complaint: chest pain Time Seen by Provider: 08/22/19 19:42 Mode of Arrival: Ambulatory Source of Information: Patient Limitations: No Limitations Description of Symptoms (Recalled from ER Triage Doc. by RN): Complaint of chest on mynor sides x 3 days - History of Present Illness HPI narrative: 54-year-old male presents to the ED with right sided chest pain. He states his been going on for 3 to 4 days he describes this pain. He states the pain is reproducible upon palpation. He also states that the pain is worsened with deep inhalations and increasing intrathoracic pressure. Patient states he has a history of hypert
[2019-08-22 19:58] VITALS: BP 151/75; PULSE 83; RESP 16; TEMP 36.7; O2SAT 98
== END 2019-08-22 20:01 | disposition home or self-care (01) ==
PROVIDERS: Emergency Provider Family Medicine; PCP Nurse Practitioner Family
DX: M94.0 Chondrocostal junction syndrome [Tietze] (principal); R07.89 Other chest pain; F17.210 Nicotine dependence, cigarettes, uncomplicated; I10 Essential (primary) hypertension; E78.5 Hyperlipidemia, unspecified; I25.2 Old myocardial infarction; I25.10 Atherosclerotic heart disease of native coronary artery without angina pectoris; E11.9 Type 2 diabetes mellitus without complications; F41.8 Other specified anxiety disorders; K21.9 Gastro-esophageal reflux disease without esophagitis; Z79.899 Other long term (current) drug therapy
CPT/HCPCS: 71250; 71275; 80048; 85025; 93005; 96374; 99283; Q9967

== ENCOUNTER → 2020-05-15 19:16 | Outpatient (CLI) | payer MEDICARE, OTHER, SELFPAY ==
[2020-05-15 19:30] LABS: Alanine Aminotransferase 21 U/L (12-78); Albumin Level 4.3 g/dl (3.5-5.0); Albumin/Globulin Ratio 1.5 (1.1-1.8); Alkaline Phosphatase 105 U/L (38-126); Anion Gap 16.2 mEq/L (5-15); Aspartate Amino Transferase 26 U/L (17-59); Bilirubin,Total 0.3 mg/dl (0.2-1.3); Blood Urea Nitrogen 33 mg/dl (9-20); Carbon Dioxide 19 mmol/L (22.0-30.0); Chloride 104 mmol/L (98-107); Chol/HDL Ratio 10.6 (1-3.5); Cholesterol 287 mg/dl (140-200); Estimated Glomerular Filt Rate 57 ml/min (>60); GFR (African American) 69 ML/MIN (>60); Globulin 2.9 g/dL (1.3-3.2); Glucose 323 mg/dl (74-100); HDL Cholesterol 27 mg/dl (40-60); Potassium 5.2 mmoL/L (3.5-5.1); Sodium 134 mmol/L (136-145); Total Protein,Serum 7.2 g/dl (6.3-8.2)
[2020-05-15 19:31] LABS: Basophils # 0.1 K/mm3 (0-0.2); Basophils % 0.7 % (0.1-2.0); Eosinophils # 0.2 K/mm3 (0.0-0.4); Eosinophils % 3.4 % (0.1-12.0); Hematocrit 37.9 % (42.0-52.0); Hemoglobin 13.1 g/dL (14.1-18.0); Lymphocytes # 1.6 K/mm3 (0.7-4.5); Lymphocytes % 22.4 % (10-50); Mean Corpuscular HGB Conc 34.6 g/dL (31.8-35.4); Mean Corpuscular Hemoglobin 33.2 pg (27.0-31.2); Mean Corpuscular Volume 96.2 fl (80-94); Mean Platelet Volume 9.9 fl (7.4-10.4); Monocytes # 0.5 K/mm3 (0.1-1.0); Monocytes % 6.4 % (1.7-9.3); Neutrophils # 4.8 K/mm3 (1.8-7.8); Neutrophils % 67.1 % (37.0-80.0); Platelet Count 206 K/mm3 (142-424); Red Blood Count 3.94 M/mm3 (4.60-6.20); Red Cell Distribution Width 13.6 % (11.5-17.5); White Blood Count 7.1 K/mm3 (4.8-10.8)
[2020-05-15 19:39] LABS: Microalbumin/Creatinine Ratio 30.7
[2020-05-15 19:43] LABS: Direct LDL Cholesterol < 30.00 mg/dL (100-129); Triglycerides > 1575 mg/dl (30-150)
[2020-05-15 19:45] LABS: Creatinine,Urine Random 93 mg/dL (Not Estab.)
[2020-05-15 19:48] LABS: T4 (Thyroxine) 6.9 ug/dl (5.53-11.0)
[2020-05-15 19:52] LABS: 25-OH Vitamin D, Total < 12.8 ng/mL (30-100)
[2020-05-15 20:02] LABS: Prostate Specific Ag Screen 0.5 ng/ml (0.0-4.0); Thyroid Stimulating Hormone 1.38 uIU/mL (0.465-4.68)
[2020-05-15 20:32] LABS: Hemoglobin A1C 12.6 % (4.0-6.0)
== END ==
PROVIDERS: Visit Provider Nurse Practitioner Family
DX: E11.9 Type 2 diabetes mellitus without complications (principal); E55.9 Vitamin D deficiency, unspecified; E78.5 Hyperlipidemia, unspecified; I10 Essential (primary) hypertension; I25.10 Atherosclerotic heart disease of native coronary artery without angina pectoris; R07.89 Other chest pain; Z12.5 Encounter for screening for malignant neoplasm of prostate; Z79.84 Long term (current) use of oral hypoglycemic drugs
CPT/HCPCS: 80053; 80061; 82043; 82306; 82570; 83036; 84436; 84443; 85025; G0103

== ENCOUNTER → 2020-12-09 10:39 | Outpatient (CLI) | payer MEDICARE, OTHER, SELFPAY ==
--- NOTE | 2020-12-09 10:39 | US_ITS ---
PROCEDURE: US TESTICULAR CLINICAL INDICATION: Testicular swelling with pain COMPARISON: No exams were available for comparison FINDINGS: The right testicle is 4 x 2 x 4 cm. Blood flow is present. No mass. Left testicle is 4 x 2 x 3 cm. No mass. Blood flow is present. There is a small focal area of increased echogenicity along the anterior aspect of the left testicle nonspecific. Small epididymal cyst noted in the head of the epididymis at 10 x 3 x 4 mm No significant hydrocele or varicocele IMPRESSION: Small left-sided epididymal cyst. No suspicious testicular mass. Bilateral blood flow is noted. Small hyperechoic focus noted along the anterior aspect of the left testicle just beneath the surface of questionable clinical significance. Dictated by: Jose G Gray MD 12/09/2020 19:06 Jose G Gray MD in [place] 12/09/2020 19:06
== END ==
PROVIDERS: PCP Nurse Practitioner Family; Visit Provider Nurse Practitioner Family
DX: N50.819 Testicular pain, unspecified (principal)
CPT/HCPCS: 76870

== ENCOUNTER → 2021-05-14 19:50 | Outpatient (CLI) | payer MEDICARE, OTHER, SELFPAY ==
[2021-05-14 19:01] LABS: Basophils # 0.1 K/mm3 (0-0.2); Basophils % 0.7 % (0.1-2.0); Eosinophils # 0.2 K/mm3 (0.0-0.4); Eosinophils % 2.4 % (0.1-12.0); Hemoglobin 13.5 g/dL (14.1-18.0); Lymphocytes # 1.8 K/mm3 (0.7-4.5); Lymphocytes % 25.1 % (10-50); Mean Corpuscular HGB Conc 34.7 g/dL (31.8-35.4); Mean Corpuscular Hemoglobin 35.4 pg (27.0-31.2); Mean Corpuscular Volume 102.1 fl (80-94); Mean Platelet Volume 8.8 fl (7.4-10.4); Monocytes # 0.4 K/mm3 (0.1-1.0); Monocytes % 5.8 % (1.7-9.3); Neutrophils # 4.9 K/mm3 (1.8-7.8); Platelet Count 306 K/mm3 (142-424); Red Blood Count 3.82 M/mm3 (4.60-6.20); Red Cell Distribution Width 13.6 % (11.5-17.5); White Blood Count 7.3 K/mm3 (4.8-10.8)
[2021-05-14 19:13] LABS: Chloride 100 mmol/L (98-107)
[2021-05-14 19:14] LABS: Potassium 4.9 mmoL/L (3.5-5.1); Sodium 135 mmol/L (136-145)
[2021-05-14 19:16] LABS: Alanine Aminotransferase 32 U/L (12-78); Anion Gap 12.9 mEq/L (5-15); Aspartate Amino Transferase 27 U/L (17-59); Blood Urea Nitrogen 17 mg/dl (9-20); Carbon Dioxide 27 mmol/L (22.0-30.0); Estimated Glomerular Filt Rate 62 ml/min (>60); GFR (African American) 76 ML/MIN (>60)
[2021-05-14 19:17] LABS: Albumin Level 4.2 g/dl (3.5-5.0); Albumin/Globulin Ratio 1.5 (1.1-1.8); Alkaline Phosphatase 109 U/L (38-126); Bilirubin,Total 0.4 mg/dl (0.2-1.3); Calcium 9.4 mg/dl (8.4-10.2); Cholesterol 197 mg/dl (140-200); Globulin 2.8 g/dL (1.3-3.2); Glucose 263 mg/dl (74-100); HDL Cholesterol 28 mg/dl (40-60)
[2021-05-14 19:29] LABS: Direct LDL Cholesterol 50.02 mg/dL (100-129)
[2021-05-14 19:35] LABS: T4 (Thyroxine) 7.2 ug/dl (5.53-11.0)
[2021-05-14 19:44] LABS: Hemoglobin A1C 11.8 % (4.0-6.0)
[2021-05-14 19:48] LABS: Thyroid Stimulating Hormone 1.49 uIU/mL (0.465-4.68)
[2021-05-14 19:55] LABS: Triglycerides 935 mg/dl (30-150)
[2021-05-19 10:13] LABS: C-Peptide 5.3 ng/mL (1.1-4.4)
== END ==
PROVIDERS: Visit Provider Nurse Practitioner Family
DX: E11.9 Type 2 diabetes mellitus without complications (principal); R53.83 Other fatigue; E66.3 Overweight; Z68.29 Body mass index [BMI] 29.0-29.9, adult; Z79.84 Long term (current) use of oral hypoglycemic drugs; Z72.0 Tobacco use
CPT/HCPCS: 80053; 80061; 82043; 82306; 83036; 84436; 84443; 84681; 85025

== ENCOUNTER 2021-10-18 14:26 | Emergency (ER) | payer MEDICARE, OTHER, SELFPAY ==
[2021-10-18 16:35] VITALS: BP 142/80; PULSE 71; RESP 20; TEMP 36.7; O2SAT 96; BMI 28.0
--- NOTE | 2021-10-18 16:48 | EXP.UTC ---
Discharge Plan Disposition Patient Disposition: Home, Self-Care Condition: Good Prescriptions Prescriptions: New azithromycin [Zithromax Z-Elton] 250 mg tablet See Rx Instructions .ROUTE .COMPLEX Qty: 6 0RF Rx Instructions: For 250 mg dose pack: take 500 mg today (day 1), then 250 mg for 4 days (days 2-5) No Action nicotine 21 mg/24 hr patch 24 hour 1 patch TRANSDERMA DAILY Qty: 28 0RF clopidogrel 75 mg tablet 75 mg PO DAILY Qty: 90 3RF isosorbide mononitrate 60 mg tablet extended release 24 hr See Rx Instructions .ROUTE .COMPLEX Qty: 90 0RF Dose Instruction: TAKE 1 TABLET BY MOUTH ONCE DAILY IN THE MORNING Rx Instructions: TAKE 1 TABLET BY MOUTH ONCE DAILY IN THE MORNING metformin 1,000 mg tablet See Rx Instructions .ROUTE .COMPLEX Qty: 180 0RF Dose Instruction: Take 1 tablet by mouth twice daily Rx Instructions: Take 1 tablet by mouth twice daily omeprazole 20 mg capsule,delayed release(DR/EC) 20 mg PO DAILY Qty: 90 3RF losartan-hydrochlorothiazide 100-25 mg tablet 1 tab PO DAILY Qty: 90 3RF fluticasone propionate [Flonase Allergy Relief] 50 mcg/actuation spray,suspension 1 spray INTRANASAL QDAY Qty: 9.9 5RF Rx Instructions: administer into each nostril bupropion HCl [Wellbutrin SR] 150 mg tablet sustained-release 12 hr 150 mg PO BID Qty: 180 1RF (DME) blood sugar diagnostic Strip See Rx Instructions .ROUTE .MEDSUPPLY Qty: 100 12RF Rx Instructions: test glucose 4x daily aspirin 81 mg tablet,delayed release (DR/EC) See Rx Instructions .ROUTE .COMPLEX Qty: 90 3RF Dose Instruction: TAKE 1 TABLET BY MOUTH ONCE DAILY Rx Instructions: TAKE 1 TABLET BY MOUTH ONCE DAILY atorvastatin 80 mg tablet See Rx Instructions .ROUTE .COMPLEX Qty: 90 3RF Dose Instruction: Take 1 tablet by mouth once daily Rx Instructions: Take 1 tablet by mouth once daily amlodipine 5 mg tablet 5 mg PO DAILY Qty: 90 3RF (DME) lancets [OneTouch Delica Plus Lancet] 33 gauge misc See Rx Instructions .ROUTE .COMPLEX Qty: 100 12RF Dose Instruction: TEST DAILY Rx Instructions: Test four times daily carvedilol 25 mg tablet See Rx Instructions .ROUTE .COMPLEX Qty: 180 0RF Dose Instruction: Take 1 tablet by mouth twice daily Rx Instructions: Take 1 tablet by mouth twice daily Jardiance 10 mg tablet 10 mg PO DAILY Qty: 30 2RF glipizide 5 mg tablet See Rx Instructions .ROUTE .COMPLEX Qty: 180 0RF Dose Instruction: Take 1 tablet by mouth twice daily Rx Instructions: Take 1 tablet by mouth twice daily Referrals Follow up/Referrals: Katalina Tierney PA [Primary Care Provider] - See instructions Activity Restrictions/Add. Instructions Additional Instructions/Restrictions: Start antibiotics Gargle warm salt water this may help with throat irritation and soreness Return if needed Straight to ER if any life threatening symptoms Clinical Impressions Clinical Impression: URI (upper respiratory infection) Stand Alone Forms Stand Alone Forms: Work/School Release Instructions Patient Instructions: Laryngitis, DI for Laryngitis, Azithromycin Discharge ED Provider: Stephania Sánchez [facility] HPI General Stated complaint: Cough, loss of voice Mode of Arrival: Ambulatory Source of Information: Patient Limitations: No Limitations Time Seen by Provider: 10/18/21 16:45 Description of Symptoms (Recalled from Triage Doc. by RN): PATIENT C/O DRY COUGH AND LOSS OF VOICE X 2 WEEKS HEENT Symptoms (Recalled from RN notes): Yes Resp Symptoms (Recalled from RN notes): Yes Skin Symptoms (Recalled from RN notes): No MS Symptoms (Recalled from RN notes): No Functional Status (Recalled from RN notes): WNL History of Present Illness Provider Complaint: Patient states that he has been having sinus congestion, drainage, scratchy throat and loss of voice for the la
[2021-10-18 17:15] VITALS: BP 142/80; PULSE 71; RESP 20; TEMP 36.7; O2SAT 96
== END 2021-10-18 17:18 | disposition home or self-care (01) ==
PROVIDERS: Emergency Provider Nurse Practitioner; PCP Physician Assistant
DX: J06.9 Acute upper respiratory infection, unspecified (principal); F17.210 Nicotine dependence, cigarettes, uncomplicated
CPT/HCPCS: 99212; G0463

== ENCOUNTER → 2021-11-04 07:56 | Outpatient (CLI) | payer MEDICARE, OTHER, SELFPAY ==
--- NOTE | 2021-11-04 08:02 | CT_ITS ---
FINAL REPORT TECHNIQUE: Axial CT images were performed from the lung apices through the upper abdomen. Coronal reformats were submitted. This study was performed with techniques to keep radiation doses as low as reasonably achievable (ALARA). Individualized dose reduction techniques using automated exposure control or adjustment of mA and/or kV according to the patient's size were employed. CLINICAL HISTORY: follow up on Nodules seen in 2019 COMPARISON: 08/22/2019 FINDINGS: There is no axillary adenopathy. There is no hilar or mediastinal mass or adenopathy. Heart size is normal. There is no pericardial or pleural effusion. Limited images of the upper abdomen are unremarkable. There are multiple small calcified granulomas. There is mild atelectasis or scarring in the left lobe of these. There is no new mass or nodule. IMPRESSION: Stable, small pulmonary nodules. Reviewed, Interpreted and Dictated by Jorge Ann III, MD Transcribed by Eulalia Salguero Authenticated and [facility]
== END ==
PROVIDERS: PCP Physician Assistant; Visit Provider Family Medicine
DX: R91.8 Other nonspecific abnormal finding of lung field (principal)
CPT/HCPCS: 71250

== ENCOUNTER → 2022-03-11 17:13 | Outpatient (CLI) | payer MEDICARE, OTHER, SELFPAY ==
[2022-03-11 15:21] LABS: Basophils # 0.1 K/mm3 (0-0.2); Basophils % 0.7 % (0.1-2.0); Eosinophils # 0.2 K/mm3 (0.0-0.4); Eosinophils % 2.3 % (0.1-12.0); Hematocrit 37.6 % (42.0-52.0); Hemoglobin 12.3 g/dL (14.1-18.0); Lymphocytes # 1.7 K/mm3 (0.7-4.5); Lymphocytes % 23.8 % (10-50); Mean Corpuscular HGB Conc 32.7 g/dL (31.8-35.4); Mean Corpuscular Hemoglobin 31.8 pg (27.0-31.2); Mean Corpuscular Volume 97.3 fl (80-94); Mean Platelet Volume 8.9 fl (7.4-10.4); Monocytes # 0.5 K/mm3 (0.1-1.0); Monocytes % 6.5 % (1.7-9.3); Neutrophils # 4.7 K/mm3 (1.8-7.8); Neutrophils % 66.5 % (37.0-80.0); Platelet Count 305 K/mm3 (142-424); Red Blood Count 3.86 M/mm3 (4.60-6.20); Red Cell Distribution Width 13.1 % (11.5-17.5); White Blood Count 7.1 K/mm3 (4.8-10.8)
[2022-03-11 15:55] LABS: Alanine Aminotransferase 25 U/L (12-78); Albumin/Globulin Ratio 1.7 (1.1-1.8); Alkaline Phosphatase 95 U/L (38-126); Aspartate Amino Transferase 23 U/L (17-59); Bilirubin,Total 0.3 mg/dl (0.2-1.3); Blood Urea Nitrogen 30 mg/dl (9-20); Calcium 9.6 mg/dl (8.4-10.2); Carbon Dioxide 26 mmol/L (22.0-30.0); Chloride 101 mmol/L (98-107); Chol/HDL Ratio 6.7 (1-3.5); Cholesterol 155 mg/dl (140-200); Estimated Glomerular Filt Rate 57 ml/min (>60); GFR (African American) 69 ML/MIN (>60); Globulin 2.4 g/dL (1.3-3.2); HDL Cholesterol 23 mg/dl (40-60); Sodium 133 mmol/L (136-145); Total Protein,Serum 6.4 g/dl (6.3-8.2)
[2022-03-11 16:07] LABS: Direct LDL Cholesterol 63.73 mg/dL (100-129)
[2022-03-11 16:25] LABS: Thyroid Stimulating Hormone 1.55 uIU/mL (0.465-4.68)
[2022-03-11 16:26] LABS: Glucose 400 mg/dl (74-100); Triglycerides 472 mg/dl (30-150)
[2022-03-11 18:45] LABS: Hemoglobin A1C 13.4 % (4.0-6.0)
== END ==
PROVIDERS: PCP Family Medicine; Visit Provider Family Medicine
DX: E11.69 Type 2 diabetes mellitus with other specified complication (principal); Z79.84 Long term (current) use of oral hypoglycemic drugs
CPT/HCPCS: 80053; 80061; 83036; 84443; 85025

== ENCOUNTER 2022-03-21 08:26 | Day surgery (SDC) | payer MEDICARE, OTHER, SELFPAY ==
[2022-03-21] VITALS (10 sets, daily range): BP systolic 105–163; BP diastolic 62–97; PULSE 60–76; RESP 16–20; TEMP 36.1–36.8; O2SAT 90–100; BMI 29.7
--- NOTE | 2022-03-21 07:13 | IR_ITS ---
APPROVED REPORT Patient Location: Outpatient PROCEDURES Left heart catheterization Left ventriculogram Selective coronary angiogram INDICATION Systolic congestive heart failure ejection fraction 20%, Known coronary artery disease, Informed consent was obtained prior to the procedure. COMPLICATIONS NONE Estimated Blood Loss: LESS THAN 10 ML TECHNIQUE One percent lidocaine used to anesthetize the right anterior aspect of the wrist. The right radial artery was accessed via the Seldinger technique. A 6 Kinyarwanda sheath was placed in the right radial artery. 2.5 mg of verapamil, 800 mcg of nitroglycerin, 1mg Lidocaine and 5000 U Heparin were given through the arterial sheath. The papa catheter was also used to perform left heart catheterization, left ventriculogram and selective coronary angiogram. At the end of the procedure the sheath was removed good hemostasis was achieved using Traclet band, patient was transferred to the postop holding area in stable condition. ANGIOGRAPHIC RESULTS The left main artery Normal The left anterior descending artery There is a proximal long eccentric 60 to 70% stenosis followed by an additional mid vessel 30% stenosis with additional 50% stenosis along tortuous bends followed by a long 80% stenosis in the mid to distal LAD. The LAD is a large vessel which wraps the apex and supplies a large portion of the inferior wall The circumflex artery Is a codominant system which has proximal 50% stenosis. A large first obtuse marginal artery has an ostial proximal 80% stenosis which extends into a small bifurcating superior branch which has a long 90% proximal mid vessel stenoses. The inferior branch of the first obtuse marginal has a proximal 90% stenosis. This obtuse marginal artery appears to function as a posterior descending artery The right coronary artery Is codominant and has proximal 50% stenoses and subtotally occluded in the distal segment. This gives off a moderate distal marginal branch which appears to have competitive collateral flow The PORTILLO ventriculogram reveals Severely dilated ejection fraction 20% The left ventricular end-diastolic pressure 35 to 40 mmHg IMPRESSION Severe to critical three-vessel coronary artery disease Severely reduced ejection fraction Severely elevated LVEDP PLAN 1. Patient will be referred to [facility] for consideration of surgical revascularization 2. Standard therapy for ischemic heart disease 3. Standard therapy for ischemic cardiomyopathy 4. Consider LifeVest while patient is awaiting CABG 5. Avoidance of tobacco products 6. Patient requires better control of diabetes 7. LDL less than 55 to be achieved with high intensity statin Electronically signed by : Isaak Jolly MD 03/21/2022 11:08:34
--- NOTE | 2022-03-21 08:36 | CA_ITS ---
APPROVED REPORT EXAM: Comprehensive 2D, Doppler, and color-flow Echocardiogram Biochemist: Geraldine Bill RT(R) Ht: 5 ft 9 in Wt: 200lbs BSA: 2.07 BP: 162/60 mmHg Indications: CP, smoker, HTN, hyperlipidemia, CAD, dizziness. 2D Dimensions LVOT 2.08 cm (M/F) 1.5-2.5 LVEF (Campos's) 35.50 % M: 52 - 72 LV Volume 200.30 mL M: 62 - 150 LV Volume Index 96.76 mL/m2 M: 34 - 74 LA Volume 54.80 mL LA Volume Index 26.47 mL/m2 (M/F) 16-34 M-Mode Dimensions RVDd 2.53 cm (0.9-2.6) LA Diam 4.34 cm (1.9-4.0) LVDd 5.58 cm (3.5-5.7) Ao Diam 3.01 cm (2.0-3.7) LVDs 4.99 cm (3.5-5.7) IVSd 1.01 cm (0.6-1.1) PWd 0.90 cm (0.6-1.1) EF (Teich) 22.80% FS 10.60% EDV (Teich) 152.40 mL TAPSE 2.15 (<1.7) ESV (Teich) 117.70 mL LV Diastology E Decel Time 130.00 (160-240 msec) E/A Ratio 1.70 MED E' 6.20 (< 7 cm/sec) E'/MED E' Ratio 17.19 (>14) LAT E' 5.80 (<10 cm/sec) E/LAT E' Ratio 18.38 (>14) Mitral Valve MV A Velocity 63.00 (40-130 cm/s) E/A Ratio 1.70 MV Decel. Time 130.00 (160-240 ms) Left Ventricle Technically difficult study because of the patient factors and poor acoustic windows. Left atrium is mildly enlarged, left ventricle is normal size mild concentric left ventricular hypertrophy, reduced left ventricular systolic function, estimated ejection fraction 40%, there is marked hypokinesis involving the basal septum, posterolateral and inferior wall. Diastolic parameters are inconclusive. Tissue Doppler is indicated of reduced left atrial pressure. Right Ventricle Right atrium and right ventricle are mildly enlarged with normal contractility. Aortic Valve Aortic valve is thickened and calcified without aortic stenosis or aortic insufficiency. Mitral Valve Mitral valve leaflets are minimally thickened, there is moderate mitral regurgitation. Tricuspid Valve Tricuspid grossly normal, there is mild tricuspid regurgitation, tricuspid regurgitation jet velocity is inadequate for calculation of the right ventricular systolic pressure. Pulmonic Valve Pulmonic valve is poorly visualized. Great Vessels Aortic root is normal size. Inferior vena cava is mildly dilated with normal inspiratory collapse. Pericardium No significant pericardial effusion noted. Conclusion 1. Technically difficult study. Mildly enlarged left atrium, normal left ventricular size mild concentric left ventricular hypertrophy, estimated ejection fraction 40% with multiple segmental wall motion abnormality described above, Doppler evidence of raise left atrial pressure. 2. Moderate mitral and mild tricuspid regurgitation. 3. No significant pericardial effusion noted. 4. Inferior vena cava is mildly dilated with normal inspiratory collapse. Electronically signed by : Nicholas Wright MD 03/22/2022 06:06:59
--- NOTE | 2022-03-21 11:54 | SUR.PHASEII ---
Patient taken to post op for recovery.
== END 2022-03-21 13:56 | disposition home or self-care (01) ==
PROVIDERS: PCP Family Medicine; Visit Provider Internal Medicine
DX: E78.2 Mixed hyperlipidemia (principal); F17.210 Nicotine dependence, cigarettes, uncomplicated; I11.0 Hypertensive heart disease with heart failure; R06.00 Dyspnea, unspecified; R42 Dizziness and giddiness; Z95.5 Presence of coronary angioplasty implant and graft; I25.118 Atherosclerotic heart disease of native coronary artery with other forms of angina pectoris; I50.22 Chronic systolic (congestive) heart failure; E11.9 Type 2 diabetes mellitus without complications; Z79.84 Long term (current) use of oral hypoglycemic drugs; Z79.899 Other long term (current) drug therapy
CPT/HCPCS: 93306; 93458; 99152; C1725; C1769; J1644; Q9967

== ENCOUNTER 2022-04-20 02:03 | Emergency (ER) | payer MEDICARE, OTHER, SELFPAY ==
[2022-04-20] VITALS (13 sets, daily range): BP systolic 129–193; BP diastolic 76–113; PULSE 61–95; RESP 16–26; TEMP 36.4–36.8; O2SAT 84–97; BMI 29.2
--- NOTE | 2022-04-20 02:02 | ECG_ITS ---
APPROVED REPORT Exam: Resting ECG HR:90 bpm ECG Measurements Heart Rate 90 AXES CA 152 P 55 QRSd 132 QRS 68 QT 377 T -42 QTc 425 Conclusion SINUS RHYTHM INTRAVENTRICULAR CONDUCTION DELAY [130+ ms QRS DURATION] POSSIBLE ANTERIOR MYOCARDIAL INFARCTION , OF INDETERMINATE AGE [30 ms Q WAVE IN V3/V4, OR R < 0.2 mV IN V4] PROBABLE INFERIOR MYOCARDIAL INFARCTION , OF INDETERMINATE AGE [35 ms Q WAVE IN II/aVF] ABNORMAL ECG UNCONFIRMED REPORT Electronically signed by : Jarod Satler MD 04/20/2022 20:19:57
--- NOTE | 2022-04-20 02:04 | XR_ITS ---
PROCEDURE INFORMATION: Exam: XR Chest Exam date and time: 04/20/2022 2:32 AM Age: 56 years old Clinical indication: Shortness of breath; Additional info: SOA TECHNIQUE: Imaging protocol: Radiologic exam of the chest. Views: 1 view. Total images: 1 COMPARISON: CT CHEST WO CON 11/04/2021 8:03 AM FINDINGS: Tubes, catheters and devices: EKG leads are present. Lungs: Acute bilateral perihilar and bibasilar interstitial infiltrate and ground-glass opacity. No pulmonary vascular congestion. Peribronchial wall thickening/cuffing. Pleural spaces: Unremarkable. No pleural effusion. No pneumothorax. Heart/Mediastinum: Unremarkable. No cardiomegaly. No mediastinal widening or hilar enlargement. Vasculature: Atherosclerotic aortic arch. Bones/joints: Unremarkable. IMPRESSION: Acute bilateral perihilar and bibasilar interstitial and ground-glass infiltrates likely reflecting pneumonitis/atypical pneumonia. Less likely, noncardiogenic edema.
[2022-04-20 02:19] LABS: ABG Base Excess -3.1 mmol/L (-2.4-2.3); ABG HCO3 21.2 mmhg (22.0-26.0); ABG Oxygen Saturation 86 % (90-100); ABG PCO2 32.6 mmhg (35.0-45.0); ABG PH 7.43 mmol/L (7.35-7.45); ABG PO2 50.3 mmhg (80-100); ABG TCO2 22.2 mmhg (23-27)
--- NOTE | 2022-04-20 02:19 | PC.NURSE ---
RAD at for CXR
[2022-04-20 02:20] LABS: Allen's Test Acceptable; Source Right Radial
[2022-04-20 02:20] LABS: Coronavirus 19, PCR Not Detected (NotDetected); Influenza A, PCR Not Detected (NotDetected); Influenza B, PCR Not Detected (NotDetected)
[2022-04-20 02:24] LABS: Basophils # 0.1 K/mm3 (0-0.2); Basophils % 0.9 % (0.1-2.0); Eosinophils # 0.3 K/mm3 (0.0-0.4); Eosinophils % 2.6 % (0.1-12.0); Hematocrit 40.5 % (42.0-52.0); Hemoglobin 12.8 g/dL (14.1-18.0); Lymphocytes # 1.6 K/mm3 (0.7-4.5); Lymphocytes % 14.2 % (10-50); Mean Corpuscular HGB Conc 31.5 g/dL (31.8-35.4); Mean Corpuscular Hemoglobin 30.6 pg (27.0-31.2); Mean Platelet Volume 7.8 fl (7.4-10.4); Monocytes # 0.7 K/mm3 (0.1-1.0); Monocytes % 5.8 % (1.7-9.3); Neutrophils # 8.7 K/mm3 (1.8-7.8); Neutrophils % 76.5 % (37.0-80.0); Platelet Count 353 K/mm3 (142-424); Red Blood Count 4.17 M/mm3 (4.60-6.20); White Blood Count 11.4 K/mm3 (4.8-10.8)
[2022-04-20 02:26] LABS: Chloride 106 mmol/L (98-107); Sodium 142 mmol/L (136-145)
[2022-04-20 02:29] LABS: Alanine Aminotransferase 47 U/L (12-78); Albumin Level 4.8 g/dl (3.5-5.0); Albumin/Globulin Ratio 1.6 (1.1-1.8); Alkaline Phosphatase 90 U/L (38-126); Aspartate Amino Transferase 35 U/L (17-59); Bilirubin,Total 0.5 mg/dl (0.2-1.3); Blood Urea Nitrogen 22 mg/dl (9-20); Carbon Dioxide 26 mmol/L (22.0-30.0); Creatinine Clearance Estimated 73 mL/min (50-200); Estimated Glomerular Filt Rate 52 ml/min (>60); GFR (African American) 63 ML/MIN (>60); Total Protein,Serum 7.8 g/dl (6.3-8.2)
[2022-04-20 02:30] LABS: Glucose 217 mg/dl (74-100)
[2022-04-20 02:35] LABS: C-Reactive Protein 10.8 mg/L (0-4)
--- NOTE | 2022-04-20 02:35 | HMH.EDSOB ---
Discharge Plan Disposition Patient Disposition: Home, Self-Care Chief Complaint: Shortness of Breath/Dyspnea Prescriptions Prescriptions: No Action albuterol sulfate 90 mcg/actuation HFA aerosol inhaler 2 puff inhalation QID PRN (Reason: shortness of breath or wheezing) Qty: 8.5 10RF isosorbide mononitrate 120 mg tablet extended release 24 hr 120 mg PO DAILY Qty: 30 2RF nitroglycerin 0.4 mg tablet, sublingual 0.4 mg sublingual Q5M PRN (Reason: chest pain) Qty: 25 0RF Rx Instructions: do not exceed 3 doses per episode Toujeo Max U-300 SoloStar 300 unit/mL (3 mL) insulin pen 40 unit SQ HS Rx Instructions: please dispense with insulin needles #100 [id number] bupropion HCl [Wellbutrin SR] 150 mg tablet sustained-release 12 hr 150 mg PO BID atorvastatin 80 mg tablet See Rx Instructions .ROUTE .COMPLEX Rx Instructions: Take 1 tablet by mouth once daily carvedilol 25 mg tablet See Rx Instructions .ROUTE .COMPLEX Rx Instructions: Take 1 tablet by mouth twice daily clopidogrel 75 mg tablet 75 mg PO DAILY (DME) blood sugar diagnostic Strip See Rx Instructions MISCELLANEOUS Rx Instructions: test glucose 4x daily omeprazole 40 mg capsule,delayed release(DR/EC) 40 mg PO DAILY aspirin 81 mg tablet,delayed release (DR/EC) See Rx Instructions .ROUTE .COMPLEX Rx Instructions: TAKE 1 TABLET BY MOUTH ONCE DAILY losartan-hydrochlorothiazide 100-25 mg tablet 1 tab PO DAILY metformin 1,000 mg tablet See Rx Instructions .ROUTE .COMPLEX Rx Instructions: Take 1 tablet by mouth twice daily nicotine 21 mg/24 hr patch 24 hour 1 patch TRANSDERMA DAILY fluticasone propionate [Flonase Allergy Relief] 50 mcg/actuation spray,suspension 1 spray INTRANASAL QDAY Rx Instructions: administer into each nostril (DME) lancets [OneTouch Delica Plus Lancet] 33 gauge misc See Rx Instructions .ROUTE .COMPLEX Rx Instructions: Test four times daily Jardiance 10 mg tablet 10 mg PO DAILY Referrals Follow up/Referrals: Darron Franz MD [Primary Care Provider] - See instructions Isaak Jolly MD [Staff Physician] - See instructions Clinical Impressions Clinical Impression: Congestive heart failure Instructions Patient Instructions: DI for Shortness of Breath Discharge ED Provider: Saniya (ED),Silvano S Resp/SOB HPI General Chief Complaint: Shortness of Breath/Dyspnea Stated Complaint: shortness of air Time Seen by Provider: 04/20/22 02:35 Mode of Arrival: Ambulatory Source of Information: Patient and Medical Record Limitations: No Limitations Description of Symptoms (Recalled from ER Triage Doc. by RN): pt reports waking up in the middle of the night for the past several nights, pt reports x2 nights has taking 1 nitro x2 nights with relief of SOA, pt reports nitro did not help sOA today. Pt reports his lungs feel tight, denies chest pain. Pt reports scheduled for cardiac bypass surgery on monday of this week at . History of Present Illness has sob at night over the last few nights - pt feels it is related to insulin use - no chest pain - no chest pain and has cabg pending MD Complaint: shortness of breath Onset (ago): day(s) Severity: moderate Known history of: congestive heart failure Associated symptoms: denies other symptoms Treatment prior to arrival: none Related Data Home oxygen amount: none Home Medications Medication Instructions Recorded Confirmed aspirin 81 mg tablet,delayed See Rx Instructions .Route 03/21/22 04/01/22 release .COMPLEX . atorvastatin 80 mg tablet See Rx Instructions .Route 03/21/22 04/01/22 .COMPLEX . blood sugar diagnostic 03/21/22 04/01/22 bupropion HCl 150 mg tablet,12 hr 150 mg PO BID . 03/21/22 04/01/22 sustained-release (Wellbutrin SR) carvedilol 25 mg tablet See Rx Instructions .Route 03/21/22 04/01/22 .COMPLEX . clopi
[2022-04-20 02:41] LABS: NT Pro Brain Natriuretic Pep. 3190 pg/mL (0-125)
--- NOTE | 2022-04-20 02:43 | PC.NURSE ---
[facility] at
--- NOTE | 2022-04-20 02:43 | PC.NURSE ---
in room at this time.
[2022-04-20 02:45] LABS: Troponin I 0.01 ng/ml (0.00-0.034)
[2022-04-20 02:56] LABS: Erythrocyte Sedimentation Rate 24 mm/hr (0-20)
--- NOTE | 2022-04-20 03:51 | PC.NURSE ---
Pt O2 titrated down to 2lpm NC. No needs voiced at this time.
--- NOTE | 2022-04-20 04:54 | PC.NURSE ---
O2 turned off at this time, will continue to monitor sats
[2022-04-20 05:26] LABS: Troponin I 0.01 ng/ml (0.00-0.034)
--- NOTE | 2022-04-20 05:26 | PC.NURSE ---
notified er md pt 2nd troponin level is back and pt has been on room air since 2nd level was drawn.
--- NOTE | 2022-04-20 05:57 | PC.NURSE ---
pt sitting up in the chair at this time for comfort, states no other needs at this time.
--- NOTE | 2022-04-20 07:20 | PC.NURSE ---
ROUNDED ON PT AT THIS TIME. PT ADVISES HE IS READY TO GO HOME. 900ML OUTPUT IN URINAL.
--- NOTE | 2022-04-20 07:47 | PC.NURSE ---
rounded on pt stated he was hungry comfired with he was able to have a tray, called dietary to get a tray no other complaints at this time
--- NOTE | 2022-04-20 07:50 | PC.NURSE ---
emptied urinal pt had 900 out
--- NOTE | 2022-04-20 07:56 | PC.NURSE ---
rounded on pt, family at bs, breakfast tray given to pt
--- NOTE | 2022-04-20 08:38 | PC.NURSE ---
i emptied the urinal as i was cleaning the room after pt left he had another 700 out
== END 2022-04-20 08:40 | disposition home or self-care (01) ==
PROVIDERS: Emergency Provider Emergency Medicine; PCP Family Medicine
DX: I50.9 Heart failure, unspecified (principal); M19.90 Unspecified osteoarthritis, unspecified site; J45.909 Unspecified asthma, uncomplicated; J34.2 Deviated nasal septum; E11.40 Type 2 diabetes mellitus with diabetic neuropathy, unspecified; K21.9 Gastro-esophageal reflux disease without esophagitis; F17.210 Nicotine dependence, cigarettes, uncomplicated; I25.2 Old myocardial infarction; I10 Essential (primary) hypertension; Z79.4 Long term (current) use of insulin; Z86.718 Personal history of other venous thrombosis and embolism; Z86.79 Personal history of other diseases of the circulatory system; Z95.5 Presence of coronary angioplasty implant and graft; Z80.9 Family history of malignant neoplasm, unspecified; Z83.3 Family history of diabetes mellitus; Z82.49 Family history of ischemic heart disease and other diseases of the circulatory system; Z84.1 Family history of disorders of kidney and ureter; Z82.3 Family history of stroke; Z20.822 Contact with and (suspected) exposure to COVID-19
CPT/HCPCS: 71045; 80053; 82803; 83880; 84484; 85025; 85651; 86140; 93005; 96374; 99285; C9803; U0003; U0005

== ENCOUNTER 2022-06-04 15:42 | Inpatient (IN) | payer MEDICARE, OTHER, SELFPAY ==
[2022-06-04] VITALS (12 sets, daily range): BP systolic 130–150; BP diastolic 90–100; PULSE 109–128; RESP 13–37; TEMP 36.7–36.9; O2SAT 97–100; BMI 29.5; BMI 28.4
--- NOTE | 2022-06-04 15:48 | HMH.EDGENADL ---
Discharge Plan Disposition Chief Complaint: Weakness Discharge ED Provider: Kevyn Carter General Adult HPI General Chief complaint: Weakness Stated complaint: phy ref, possible in Afib Time Seen by Provider: 06/04/22 15:49 History of Present Illness HPI narrative: Patient is a 57-year-old male who is status post four-vessel CABG and mitral valve replacement discharged [address] Barbosa [facility] resented today with rapid heart rate. States this started about 1-1/2 weeks ago when he ran out of his carvedilol he subsequently has had his carvedilol refilled and he has doubled and even tripled his dose at home any improvement in his heart rate. He states he has been having some mild dyspnea and some lower extremity swelling and some orthopnea but he states has been tough to tell whether not this is been significantly better or worse since the surgery. Per discharge summary at [facility] was restarted on home Plavix and aspirin but has not been on any further anticoagulation. He did have some atrial fibrillation in the hospital was on amiodarone infusion for several days but this was discontinued due to bradycardia marginated to normal sinus rhythm. He had a presurgical echo which showed a left ventricular ejection fraction of 35%, dilated additionally large the descending aorta. Related Data Home Medications Medication Instructions Recorded Confirmed aspirin 81 mg tablet,delayed See Rx Instructions .Route 03/21/22 06/04/22 release .COMPLEX . blood sugar diagnostic 03/21/22 06/04/22 bupropion HCl 150 mg tablet,12 hr 150 mg PO BID . 03/21/22 06/04/22 sustained-release (Wellbutrin SR) clopidogrel 75 mg tablet 75 mg PO DAILY . 03/21/22 06/04/22 empagliflozin 10 mg tablet 10 mg PO DAILY . 03/21/22 06/04/22 (Jardiance) fluticasone propionate 50 1 spray intranasal QDAY . 03/21/22 06/04/22 mcg/actuation nasal spray,suspension (Flonase Allergy Relief) lancets 33 gauge (OneTouch Delica 03/21/22 06/04/22 Plus Lancet) metformin 1,000 mg tablet See Rx Instructions .Route 03/21/22 06/04/22 .COMPLEX .0 nicotine 21 mg/24 hr daily 1 patch transdermal DAILY . 03/21/22 06/04/22 transdermal patch omeprazole 40 mg capsule,delayed 40 mg PO DAILY Acid reflux 03/21/22 06/04/22 release acetaminophen 500 mg capsule 500 mg PO Q6H PRN Pain 05/09/22 06/04/22 hydrocodone 5 mg-acetaminophen 325 1 tab PO DAILY Pain 05/09/22 06/04/22 mg tablet insulin glargine 100 unit/mL (3 34 unit SQ DAILY Diabetes 05/31/22 06/04/22 mL) subcutaneous pen (Lantus Solostar U-100 Insulin) atorvastatin 40 mg tablet 40 mg PO HS Cholesterol 06/04/22 06/04/22 carvedilol 3.125 mg tablet 3.125 mg PO BID Heart rhythm 06/04/22 06/04/22 dulaglutide 1.5 mg/0.5 mL 1.5 mg SQ WEEKLY Diabetes 06/04/22 06/04/22 subcutaneous pen injector (TrulicVisual Threat) Previous Rx's Medication Instructions Recorded albuterol sulfate 90 mcg/actuation 2 puff inhalation QID PRN 03/11/22 aerosol inhaler shortness of breath or wheezing #8.5 grams nitroglycerin 0.4 mg sublingual 0.4 mg sublingual Q5M PRN chest 03/28/22 tablet pain #25 tabs methocarbamol 500 mg tablet 500 mg PO TID PRN muscle 05/09/22 spasticity #90 tabs Allergies Allergy/AdvReac Type Severity Reaction Status Date / Time No Known Allergies Allergy Verified 06/04/22 16:03 [facility] Disclaimer: The information contained in this section may have been updated after the patient was seen, as this information can be updated by other users. Medical History Arthritis Asthma Coronary artery disease Deviated nasal septum Diabetes Diabetes mellitus, type 2 Dizziness Dyspnea GERD (gastroesophageal reflux disease) H/O blood clots History of heart attack History of stroke Hoarseness Hypertension Neuropathy Smoker Systolic heart failure Typical angina Surgical History (Reviewed 05/31/22 @ 13:04 by Heidy
--- NOTE | 2022-06-04 15:49 | ECG_ITS ---
APPROVED REPORT Exam: Resting ECG HR:126 bpm ECG Measurements Heart Rate 126 AXES QRSd 130 QRS -67 QT 316 T 116 QTc 391 Conclusion ATRIAL FLUTTER/TACHYCARDIA WITH RAPID VENTRICULAR RESPONSE POSSIBLE ANTERIOR MYOCARDIAL INFARCTION , OF INDETERMINATE AGE [30 ms Q WAVE IN V3/V4, OR R < 0.2 mV IN V4] INFERIOR MYOCARDIAL INFARCTION , OF INDETERMINATE AGE [40+ ms Q WAVE AND/OR ST/T ABNORMALITY IN II/aVF] ABNORMAL ECG UNCONFIRMED REPORT Electronically signed by : Jraod Salter MD 06/04/2022 20:20:10
--- NOTE | 2022-06-04 16:05 | XR_ITS ---
PROCEDURE INFORMATION: Exam: XR Chest Exam date and time: 06/04/2022 4:25 PM Age: 57 years old Clinical indication: Other: Irregular heart beat; Prior surgery; Surgery date: <1 month; Surgery type: Quadruple bypass; Additional info: Dyspnea TECHNIQUE: Imaging protocol: Radiologic exam of the chest. Views: 1 view. COMPARISON: CR XR CHEST PORTABLE 04/20/2022 2:32 AM FINDINGS: Lungs: Unremarkable. No consolidation. Pleural spaces: Unremarkable. No pleural effusion. No pneumothorax. Heart/Mediastinum: Interval open heart changes. Stable cardiomegaly. Vascularity appears normal. Bones/joints: Unremarkable. IMPRESSION: Post open heart changes. No acute cardiopulmonary disease.
--- NOTE | 2022-06-04 16:08 | PC.NURSE ---
paging song writer for cardiology to speak to donato churchill
[2022-06-04 16:22] LABS: Basophils % 0.4 % (0.1-2.0); Eosinophils # 0.2 K/mm3 (0.0-0.4); Eosinophils % 2.1 % (0.1-12.0); Hematocrit 36.4 % (42.0-52.0); Hemoglobin 11.3 g/dL (14.1-18.0); Lymphocytes # 1.3 K/mm3 (0.7-4.5); Lymphocytes % 15.7 % (10-50); Mean Corpuscular HGB Conc 30.9 g/dL (31.8-35.4); Mean Corpuscular Hemoglobin 28.7 pg (27.0-31.2); Mean Corpuscular Volume 92.6 fl (80-94); Mean Platelet Volume 7.3 fl (7.4-10.4); Monocytes # 0.5 K/mm3 (0.1-1.0); Monocytes % 6.6 % (1.7-9.3); Neutrophils # 6.2 K/mm3 (1.8-7.8); Neutrophils % 75.1 % (37.0-80.0); Platelet Count 398 K/mm3 (142-424); Red Blood Count 3.93 M/mm3 (4.60-6.20); White Blood Count 8.2 K/mm3 (4.8-10.8)
[2022-06-04 16:24] LABS: Alanine Aminotransferase 35 U/L (12-78); Albumin Level 4.3 g/dl (3.5-5.0); Albumin/Globulin Ratio 1.4 (1.1-1.8); Alkaline Phosphatase 99 U/L (38-126); Anion Gap 12.4 mEq/L (5-15); Aspartate Amino Transferase 32 U/L (17-59); Bilirubin,Total 0.4 mg/dl (0.2-1.3); Blood Urea Nitrogen 21 mg/dl (9-20); Calcium 9.4 mg/dl (8.4-10.2); Carbon Dioxide 24 mmol/L (22.0-30.0); Chloride 104 mmol/L (98-107); Creatinine Clearance Estimated 79 mL/min (50-200); Estimated Glomerular Filt Rate 57 ml/min (>60); GFR (African American) 68 ML/MIN (>60); Glucose 117 mg/dl (74-100); Magnesium 1.8 mg/dl (1.6-2.3); Potassium 4.4 mmoL/L (3.5-5.1); Sodium 136 mmol/L (136-145); Total Protein,Serum 7.3 g/dl (6.3-8.2)
[2022-06-04 16:26] LABS: Activated Partial Thrombo Time 27.8 seconds (22.8-30.6); INR 0.99 (0.9-1.1); Prothrombin Time 10.7 seconds (10.1-12.5)
[2022-06-04 16:37] LABS: NT Pro Brain Natriuretic Pep. 11400 pg/mL (0-125); Troponin I 0.09 ng/ml (0.00-0.034)
[2022-06-04 16:39] LABS: D-Dimer 1.01 ug/mL (0.0-0.5)
[2022-06-04 16:41] LABS: Coronavirus 19, PCR Not Detected (NotDetected); Influenza A, PCR Not Detected (NotDetected); Influenza B, PCR Not Detected (NotDetected)
--- NOTE | 2022-06-04 16:47 | CT_ITS ---
PROCEDURE INFORMATION: Exam: CTA Chest With Contrast Exam date and time: 06/04/2022 4:55 PM Age: 57 years old Clinical indication: Shortness of breath and other: A-fib; Prior surgery; Surgery date: <1 month; Additional info: Recent surgery, af/rvr TECHNIQUE: Imaging protocol: Computed tomographic angiography of the chest with contrast. 3D rendering (Not supervised by radiologist): MIP and/or 3D reconstructed images were created by the technologist. Radiation optimization: All CT scans at this facility use at least one of these dose optimization techniques: automated exposure control; mA and/or kV adjustment per patient size (includes targeted exams where dose is matched to clinical indication); or iterative reconstruction. Contrast material: ISOVUE; Contrast volume: 75 ml; Contrast route: INTRAVENOUS (IV); REPORTING DATA: Count of CT and Cardiac NM exams in prior 12 months: This patient has received [address] and 0 known cardiac nuclear medicine studies in the 12 months prior to the current study. COMPARISON: CT chest 11/04/2021 and chest x-ray 06/04/2022 and 04/20/2022 FINDINGS: Pulmonary arteries: Normal. No pulmonary emboli. Aorta: Atherosclerotic changes of the thoracic aorta. Aorta normal caliber. Lungs: Interval development of a ill-defined 19 x 15 x 9 mm soft tissue density nodule in the anterior aspect of the right upper lobe on axial image 54 of series 5 and coronal image 25 of series 1001 when compared to prior CT chest of 11/04/2021. Interval development of a 8 mm subpleural nodular density in the anterior right lung apex on image 18 of series 5. Numerous bilateral calcified nodules are noted which are otherwise similar. Mild bibasilar atelectasis. Mild intralobular septal thickening suggesting interstitial edema in both lung bases. Pleural spaces: Small bilateral pleural effusions compatible with the recent surgery. Heart: Interval open heart changes. Heart size is mildly enlarged. Lymph nodes: Interval development of mildly enlarged mediastinal nodes in the right paratracheal and subcarinal regions. Calcified hilar nodes compatible with old granulomatous disease noted. Bones/joints: Unremarkable. No acute fracture. Soft tissues: Unremarkable. Other findings: Additional nonemergent findings as above. IMPRESSION: 1. Interval recent post open heart changes. 2. Small bibasilar pleural effusions and mild bibasilar interstitial edema. 3. Interval development of a 19 mm ill-defined soft tissue nodule in the anterior aspect of the right upper lobe. Benign versus malignant etiologies can not be differentiated. This lesion might conceivably reflect a benign postinfectious or inflammatory nodule but a rapidly developing primary lung tumor is also possible and further workup potentially with CT PET study or tissue sampling may be advisable. Interval development of a 8 mm subpleural nodule in the anterior right lung apex. This might be scarring but a additional developing lung nodule not excluded. In addition to any other workup that is performed I also advise a follow-up CT chest in 3 months. 4. Interval development of mild mediastinal lymphadenopathy. 5. Additional nonemergent findings as above.
[2022-06-04 16:55] LABS: Thyroid Stimulating Hormone 1.84 uIU/mL (0.465-4.68)
--- NOTE | 2022-06-04 17:23 | EXP.HP ---
History of Present Illness *Admission Date: 06/04/22 *Reason for visit:: Tachycardia *History of present illness: Patient is a 57-year-old male who is status post four-vessel CABG and mitral valve replacement discharged [address] Barbosa [facility] resented today with rapid heart rate.? States this started about 1-1/2 weeks ago when he ran out of his carvedilol he subsequently has had his carvedilol refilled and he has doubled and even tripled his dose at home any improvement in his heart rate.? He states he has been having some mild dyspnea and some lower extremity swelling and some orthopnea but he states has been tough to tell whether not this is been significantly better or worse since the surgery.? Per discharge summary at [facility] was restarted on home Plavix and aspirin but has not been on any further anticoagulation.? He did have some atrial fibrillation in the hospital was on amiodarone infusion for several days but this was discontinued due to bradycardia marginated to normal sinus rhythm.? He had a presurgical echo which showed a left ventricular ejection fraction of 35%, dilated additionally large the descending aorta. Patient currently has minimal symptoms. Little bit of lightheadedness and palpitations. Otherwise no significant concerns at this time. We discussed the stroke risk with atrial fibrillation and the necessity for anticoagulation. Patient understands and is agreeable. [facility] Disclaimer: The information contained in this section may have been updated after the patient was seen, as this information can be updated by other users. Medical History Arthritis Asthma Coronary artery disease Deviated nasal septum Diabetes Diabetes mellitus, type 2 Dizziness Dyspnea GERD (gastroesophageal reflux disease) H/O blood clots History of heart attack History of stroke Hoarseness Hypertension Neuropathy Smoker Systolic heart failure Typical angina Surgical History History of heart artery stent Family History Other Cancer Coronary artery disease Diabetes Hypertension Kidney disease Stroke Social History Smoking Status: Current every day smoker tobacco type: cigarettes packs per day: 1 second hand exposure: Yes alcohol intake: never counseling provided: none substance use type: denies use current occupational status: other Travel in the last 8 weeks: None household members: family housing: house Review of Systems Review of Systems Review of systems:: pertinent systems reviewed and negative unless documented below Meds Home Medications and Allergies Home Medications Medication Instructions Recorded Confirmed Type albuterol sulfate 90 mcg/actuation 2 puff inhalation QID PRN 03/11/22 06/04/22 Rx aerosol inhaler shortness of breath or wheezing #8.5 grams aspirin 81 mg tablet,delayed See Rx Instructions .Route 03/21/22 06/04/22 History release .COMPLEX . blood sugar diagnostic 03/21/22 06/04/22 History bupropion HCl 150 mg tablet,12 hr 150 mg PO BID . 03/21/22 06/04/22 History sustained-release (Wellbutrin SR) clopidogrel 75 mg tablet 75 mg PO DAILY . 03/21/22 06/04/22 History empagliflozin 10 mg tablet 10 mg PO DAILY . 03/21/22 06/04/22 History (Jardiance) fluticasone propionate 50 1 spray intranasal QDAY . 03/21/22 06/04/22 History mcg/actuation nasal spray,suspension (Flonase Allergy Relief) lancets 33 gauge (OneTouch Delica 03/21/22 06/04/22 History Plus Lancet) metformin 1,000 mg tablet See Rx Instructions .Route 03/21/22 06/04/22 History .COMPLEX .0 nicotine 21 mg/24 hr daily 1 patch transdermal DAILY . 03/21/22 06/04/22 History transdermal patch omeprazole 40 mg capsule,delayed 40 mg PO DAILY Ac
--- NOTE | 2022-06-04 18:53 | PC.NURSE ---
PT ADMITTED FOR AFIB/AFLUTTER. CURRENTLY ON AMIODARONE 33.3 ML/HR THAT BEGAN AT 1645. AND DILTIAZEM GTT @ 15 MG/HR. SUSTAINED HR OF [address] MATOS MADE AWARE. STATES HE WANTS TO LEAVE LEVO AT 15MG/HR AND THEN POTENTIALLY ADD IV BETA BLOCKERS IF HR DOES NOT IMPROVE TO DEFINED PARAMETERS.
[2022-06-04 20:02] LABS: Troponin I 0.08 ng/ml (0.00-0.034)
[2022-06-04 21:12] LABS: POC Glucose,Bedside 131 (70-110)
[2022-06-04 22:46] LABS: Troponin I 0.08 ng/ml (0.00-0.034)
[2022-06-05] VITALS (10 sets, daily range): BP systolic 141–150; BP diastolic 78–90; PULSE 70–95; RESP 16; TEMP 36.4–37.1; O2SAT 92–99; BMI 28.4
--- NOTE | 2022-06-05 04:32 | PC.NURSE ---
NO ACUTE CHANGES THIS SHIFT. NO C/O PAIN OR SOB THIS SHIFT. VSS. PT REMAINS IN A-FIB/FLUTTER ON TELE. DILT DRIP IS AT 10ML/HR. AMIO DRIP IS AT 16.7MLS/HR PER MD ORDER. TOLERATING WELL. REMAINS ON ROOM AIR. PT HAS SLEPT INTERMITTENTLY. CALL SCHMID WITH IN REACH.
[2022-06-05 05:43] LABS: POC Glucose,Bedside 113 (70-110)
[2022-06-05 07:04] LABS: Chloride 102 mmol/L (98-107); Potassium 4.2 mmoL/L (3.5-5.1); Sodium 137 mmol/L (136-145)
[2022-06-05 07:06] LABS: Alanine Aminotransferase 32 U/L (12-78); Aspartate Amino Transferase 26 U/L (17-59); Blood Urea Nitrogen 19 mg/dl (9-20); Creatinine Clearance Estimated 89 mL/min (50-200); Estimated Glomerular Filt Rate 69 ml/min (>60); GFR (African American) 83 ML/MIN (>60)
[2022-06-05 07:07] LABS: Albumin Level 4.1 g/dl (3.5-5.0); Albumin/Globulin Ratio 1.4 (1.1-1.8); Alkaline Phosphatase 99 U/L (38-126); Anion Gap 19.2 mEq/L (5-15); Bilirubin,Total 0.5 mg/dl (0.2-1.3); Calcium 9.4 mg/dl (8.4-10.2); Carbon Dioxide 20 mmol/L (22.0-30.0); Cholesterol 115 mg/dl (140-200); Glucose 107 mg/dl (74-100); Phosphorous 3.8 mg/dl (2.5-4.5); Total Protein,Serum 7.1 g/dl (6.3-8.2); Triglycerides 126 mg/dl (30-150); VLDL Cholesterol 25 mg/dL (0-40)
[2022-06-05 07:08] LABS: Chol/HDL Ratio 3.6 (1-3.5); HDL Cholesterol 32 mg/dl (40-60); Magnesium 1.9 mg/dl (1.6-2.3)
[2022-06-05 07:20] LABS: Direct LDL Cholesterol 62.91 mg/dL (100-129)
--- NOTE | 2022-06-05 09:48 | PC.NURSE ---
pt walked in room and is now up in chair after wiping off.
--- NOTE | 2022-06-05 10:03 | EXP.ACUTE.PN ---
Subjective *Date: 06/05/22 *Time: 10:03 Interval history: feels better, no issues wants to go home Medical Exam Vital signs and Labs for Last 24 Hours: Vital Signs Temp Pulse Pulse Resp BP BP Pulse Ox 06/05/22 08:00 80 06/05/22 07:47 98.0 F 06/05/22 06:00 78 16 145/86 H 99 06/05/22 04:00 98.2 F 89 16 141/90 H 96 06/05/22 04:38 90 06/05/22 02:00 90 16 150/89 H 92 L 06/05/22 00:00 97.5 F L 95 H 16 141/78 H 97 06/05/22 00:54 90 06/04/22 22:35 110 H 06/04/22 22:00 109 H 18 136/92 H 99 06/04/22 20:00 98.2 F 120 H 16 138/90 97 06/04/22 17:44 98.0 F 116 H 18 130/93 H 06/04/22 17:41 98.4 F 120 H 18 150/98 H 98 06/04/22 17:02 116 H 18 130/93 H 98 06/04/22 16:45 121 H 19 98 06/04/22 16:30 125 H 17 97 06/04/22 16:15 128 H 28 H 98 06/04/22 16:00 127 H 37 H 98 06/04/22 15:53 125 H 13 99 06/04/22 15:57 98.4 F 126 H 18 145/100 H 100 Intake and Output 06/04/22 06/05/22 06/05/22 23:59 07:59 15:59 Intake Total 360 / 360 Output Total 950 / 950 800 / 800 Balance -950 / -950 -440 / -440 Intake: Intake, Oral Amount 360 / 360 Output: Output, Urine Amount 950 / 950 800 / 800 Other: Number of Unmeasured Voids 1 Weight 87.288 kg 87.18 kg Patient Weight 06/05/22 23:59 Weight 87.18 kg Laboratory Results - last 24 hr 06/04/22 16:08: WBC 8.2, RBC 3.93 L, Hgb 11.3 L, Hct 36.4 L, MCV 92.6, MCH 28.7, MCHC 30.9 L, RDW 15.0, Plt Count 398, MPV 7.3 L, Neut % (Auto) 75.1, Lymph % (Auto) 15.7, Callahan % (Auto) 6.6, Eos % (Auto) 2.1, Baso % (Auto) 0.4, Neut # (Auto) 6.2, Lymph # (Auto) 1.3, Callahan # (Auto) 0.5, Eos # (Auto) 0.2, Baso # (Auto) 0.0 06/04/22 16:08: D-Dimer 1.01 H 06/04/22 16:08: PT 10.7, INR 0.99, APTT 27.8 06/04/22 16:08: Sodium 136, Potassium 4.4, Chloride 104, Carbon Dioxide 24, Anion Gap 12.4, BUN 21 H, Creatinine 1.30 H, Estimated Creat Clear 79, Estimated GFR 57 L, Est GFR ( Amer) 68, Glucose 117 H, Calcium 9.4, Magnesium 1.8, Total Bilirubin 0.4, AST 32, ALT 35, Alkaline Phosphatase 99, Troponin I 0.09 H, NT-Pro-B Natriuret Pep 05600 H, Total Protein 7.3, Albumin 4.3, Globulin 3.0, Albumin/Globulin Ratio 1.4, TSH 1.84 06/04/22 16:26: SARS-CoV-2 (PCR) Not detected, Influenza A Untype (PCR) Not detected, Influenza Type B (PCR) Not detected 06/04/22 19:18: Troponin I 0.08 H 06/04/22 20:04: POC Glucose 131 H 06/04/22 22:07: Troponin I 0.08 H 06/05/22 05:06: POC Glucose 113 H 06/05/22 06:40: Sodium 137, Potassium 4.2, Chloride 102, Carbon Dioxide 20 L, Anion Gap 19.2 H, BUN 19, Creatinine 1.10, Estimated Creat Clear 89, Estimated GFR 69, Est GFR ( Amer) 83 D, Glucose 107 H, Calcium 9.4, Phosphorus 3.8, Magnesium 1.9, Total Bilirubin 0.5, AST 26, ALT 32, Alkaline Phosphatase 99, Total Protein 7.1, Albumin 4.1, Globulin 3.0, Albumin/Globulin Ratio 1.4, Triglycerides 126, Cholesterol 115 L, LDL Cholesterol Direct 62.91 L, VLDL Cholesterol 25, HDL Cholesterol 32 L, Cholesterol/HDL Ratio 3.6 H I & O for Labs for Last 24 Hours: Intake & Output 06/02/22 06/03/22 06/04/22 06/05/22 23:59 23:59 23:59 23:59 Intake Total 360 / 360 Output Total 950 / 950 800 / 800 Balance -950 / -950 -440 / -440 Weight 87.288 kg 87.18 kg Constitutional: Present no acute distress Respiratory: Present normal respiratory effort Cardiac: Present Reg Rate and Rhythm GI: Present normal bowel sounds; Absent tenderness Extremities: Present normal inspection and full ROM Skin: Present intact; Absent erythema Neuro: Present Grossly Intact and moves all extremities
--- NOTE | 2022-06-05 10:10 | ECG_ITS ---
APPROVED REPORT Exam: Resting ECG HR:96 bpm ECG Measurements Heart Rate 96 AXES QRSd 134 QRS -50 QT 372 T 98 QTc 426 Conclusion ATRIAL FLUTTER/TACHYCARDIA LEFT AXIS DEVIATION [QRS AXIS < -30] INTRAVENTRICULAR CONDUCTION DELAY [130+ ms QRS DURATION] ABNORMAL ECG UNCONFIRMED REPORT Electronically signed by : Jarod Salter MD 06/06/2022 20:36:36
--- NOTE | 2022-06-05 10:16 | EXP.DC.SUM ---
General Admission date:: 06/04/22 HPI HPI HPI: Patient is a 57-year-old male who is status post four-vessel CABG and mitral valve replacement discharged [address] Barbosa [facility] resented today with rapid heart rate.? States this started about 1-1/2 weeks ago when he ran out of his carvedilol he subsequently has had his carvedilol refilled and he has doubled and even tripled his dose at home any improvement in his heart rate.? He states he has been having some mild dyspnea and some lower extremity swelling and some orthopnea but he states has been tough to tell whether not this is been significantly better or worse since the surgery.? Per discharge summary at [facility] was restarted on home Plavix and aspirin but has not been on any further anticoagulation.? He did have some atrial fibrillation in the hospital was on amiodarone infusion for several days but this was discontinued due to bradycardia marginated to normal sinus rhythm.? He had a presurgical echo which showed a left ventricular ejection fraction of 35%, dilated additionally large the descending aorta. Patient currently has minimal symptoms. Little bit of lightheadedness and palpitations. Otherwise no significant concerns at this time. We discussed the stroke risk with atrial fibrillation and the necessity for anticoagulation. Patient understands and is agreeable. Hospital Course Hospital Course Hospital Course: Patient was admitted for a flutter with RVR after not taking his medications for a few days. It was noted the patient had a left atrial appendage clip from recent CABG. He is continued on DAPT as he does not need DOAC with occlusive device. Started on Cardizem drip and amiodarone drip with improvement of rate. Restarted on Coreg. EKG shows rate controlled atrial flutter. Patient was converted to Cardizem 360 daily, amiodarone 200 twice daily and continued on his Coreg 3.125. He will be discharged with cardiology follow-up for cardioversion. Exam Data for Last 24 hours Vital signs and Labs for Last 24 Hours: Temp Pulse Resp BP Pulse Ox 98.0 F 80 16 145/86 H 99 06/05/22 07:47 06/05/22 08:00 06/05/22 06:00 06/05/22 06:00 06/05/22 06:00 Laboratory Results - last 24 hr 06/04/22 16:08: WBC 8.2, RBC 3.93 L, Hgb 11.3 L, Hct 36.4 L, MCV 92.6, MCH 28.7, MCHC 30.9 L, RDW 15.0, Plt Count 398, MPV 7.3 L, Neut % (Auto) 75.1, Lymph % (Auto) 15.7, Bland % (Auto) 6.6, Eos % (Auto) 2.1, Baso % (Auto) 0.4, Neut # (Auto) 6.2, Lymph # (Auto) 1.3, Bland # (Auto) 0.5, Eos # (Auto) 0.2, Baso # (Auto) 0.0 06/04/22 16:08: D-Dimer 1.01 H 06/04/22 16:08: PT 10.7, INR 0.99, APTT 27.8 06/04/22 16:08: Sodium 136, Potassium 4.4, Chloride 104, Carbon Dioxide 24, Anion Gap 12.4, BUN 21 H, Creatinine 1.30 H, Estimated Creat Clear 79, Estimated GFR 57 L, Est GFR ( Amer) 68, Glucose 117 H, Calcium 9.4, Magnesium 1.8, Total Bilirubin 0.4, AST 32, ALT 35, Alkaline Phosphatase 99, Troponin I 0.09 H, NT-Pro-B Natriuret Pep 05251 H, Total Protein 7.3, Albumin 4.3, Globulin 3.0, Albumin/Globulin Ratio 1.4, TSH 1.84 06/04/22 16:26: SARS-CoV-2 (PCR) Not detected, Influenza A Untype (PCR) Not detected, Influenza Type B (PCR) Not detected 06/04/22 19:18: Troponin I 0.08 H 06/04/22 20:04: POC Glucose 131 H 06/04/22 22:07: Troponin I 0.08 H 06/05/22 05:06: POC Glucose 113 H 06/05/22 06:40: Sodium 137, Potassium 4.2, Chloride 102, Carbon Dioxide 20 L, Anion Gap 19.2 H, BUN 19, Creatinine 1.10, Estimated Creat Clear 89, Estimated GFR 69, Est GFR ( Amer) 83 D, Glucose 107 H, Calcium 9.4, Phosphorus 3.8, Magnesium 1.9, Total Bilirubin 0.5, AST 26, ALT 32, Alkaline Phosphatase 99, Total Protein 7.1, Albumin 4.1, Globulin 3.0, Albumin/Globulin Ratio 1.4, Triglycerides 126, Cholesterol 115 L, LDL Cholesterol Direct 62.91 L, VLDL Cholesterol 25, HDL Cholesterol 32 L, Cholesterol/HDL Ratio 3.6 H I & O for Last 24 hours: Intake & Output 06/02/22 06/03/22
--- NOTE | 2022-06-05 10:19 | HMH.PHAINT1 ---
Pharmacy Intervention Comments: MEDICATION RECONCILIATION COMPLETE USING LIST FROM CARDIOLOGY OFFICE VISIT, PRIMARY CARE OFFICE VISIT, EXTERNAL PHARMACY FILL HISTORY, AND CALL TO [facility]. PATIENT DISCHARGE ORDER IN JUST I FINISHED REC.
--- NOTE | 2022-06-05 10:39 | HMH.PHAINT1 ---
Pharmacy Intervention Comments: DISCHARGE MEDICATION COUNSELING PROVIDED. DISCUSSED THE FOLLOWING NEW MEDICATIONS: -DILTIAZEM (FOR HIGH BLOOD PRESSURE/ELEVATED HEART RATE, DAILY, DIZZINESS, LIGHTHEADEDNESS, LOW BP, SLOWED HEART RATE, LOWER EXTREMITY SWELLING POSSIBLE) -AMIODARONE (FOR IRREGULAR HEARTBEAT, TWICE DAILY, WITH OR WITHOUT FOOD BUT MAY CAUSE N/V, LOW BP POSSIBLE) PATIENT VERBALIZED NO QUESTIONS AT THIS TIME BUT DID STATE HIS MAY HAVE QUESTIONS LATER. I ADVISED HIM TO LET HIS NURSE KNOW AND I CAN COME BACK AND DISCUSS ANY QUESTIONS.
--- NOTE | 2022-06-05 12:05 | PC.NURSE ---
discharge held up r/t availability of prescriptions at [facility]
[2022-06-05 15:25] LABS: POC Glucose,Bedside 224 (70-110)
--- NOTE | 2022-06-06 15:20 | CARE MANAGER ---
Spoke with patient for post-discharge phone interview, no issues noted.
== END 2022-06-05 13:15 | disposition home or self-care (01) | DRG 309 ==
LOC: ER 15:46 → 2ND 16:53
PROVIDERS: Admitting Provider Student in an Organized Health Care Education/Training Program; Emergency Provider Student in an Organized Health Care Education/Training Program; PCP Family Medicine; Visit Provider Student in an Organized Health Care Education/Training Program
DX: I48.91 Unspecified atrial fibrillation (principal); I50.22 Chronic systolic (congestive) heart failure; K21.9 Gastro-esophageal reflux disease without esophagitis; I25.2 Old myocardial infarction; Z86.73 Personal history of transient ischemic attack (TIA), and cerebral infarction without residual deficits; E11.40 Type 2 diabetes mellitus with diabetic neuropathy, unspecified; Z95.5 Presence of coronary angioplasty implant and graft; Z79.4 Long term (current) use of insulin; Z95.2 Presence of prosthetic heart valve; I11.0 Hypertensive heart disease with heart failure; Z95.1 Presence of aortocoronary bypass graft; E11.9 Type 2 diabetes mellitus without complications; F17.210 Nicotine dependence, cigarettes, uncomplicated; I25.119 Atherosclerotic heart disease of native coronary artery with unspecified angina pectoris
CPT/HCPCS: 36415; 71045; 71275; 80053; 80061; 82962; 83735; 83880; 84100; 84443; 84484; 85025; 85378; 85610; 85730; 93005; 99285; C9803; J0282; J7060; Q9967; U0003; U0005

== ENCOUNTER 2022-06-07 11:16 | Inpatient (IN) | payer MEDICARE, OTHER, SELFPAY ==
[2022-06-07] VITALS (17 sets, daily range): BP systolic 81–150; BP diastolic 41–92; PULSE 40–92; RESP 16–21; TEMP 36.6–36.9; O2SAT 93–100; BMI 28.5; BMI 29.5
--- NOTE | 2022-06-07 11:28 | ECG_ITS ---
APPROVED REPORT Exam: Resting ECG HR:44 bpm ECG Measurements Heart Rate 44 AXES QRSd 144 QRS -76 QT 539 T 101 QTc 488 Conclusion ATRIAL FIBRILLATION WITH SLOW VENTRICULAR RESPONSE INTRAVENTRICULAR CONDUCTION DELAY [130+ ms QRS DURATION] ABNORMAL ECG UNCONFIRMED REPORT Electronically signed by : Jarod Salter MD 06/10/2022 14:33:51
--- NOTE | 2022-06-07 11:52 | PC.NURSE ---
pt noted to have a heart rate of 29 on the monitor. this nurse and ZAHIRA Gil at bedside for evaluation of patient. on assessment pt his bradycardic, hypotensive and complaining of increased weakness. this nurse notified MD Sandy who came to bedside. verbal order given for fluids and IV atropine. pt placed on zoll at this time and supplemental 2L O2 for comfort and new EKG obtained and given to
--- NOTE | 2022-06-07 11:55 | XR_ITS ---
FINAL REPORT CLINICAL HISTORY: cp COMPARISON: 06/04/2022 FINDINGS: SINGLE-VIEW CHEST There is cardiomegaly. The patient is status post median sternotomy. The lungs are clear. There is no pneumothorax. IMPRESSION: No acute cardiopulmonary process. Reviewed, Interpreted and Dictated by Jorge Ann III, MD Transcribed by Maryellen Minor Authenticated and [facility]
--- NOTE | 2022-06-07 11:56 | ECG_ITS ---
APPROVED REPORT Exam: Resting ECG HR:43 bpm ECG Measurements Heart Rate 43 AXES QRSd 130 QRS -74 QT 531 T 240 QTc 479 Conclusion ATRIAL FIBRILLATION WITH SLOW VENTRICULAR RESPONSE WITH ABERRANT CONDUCTION OR VENTRICULAR PREMATURE COMPLEXES INDETERMINATE AXIS LEFT ANTERIOR FASCICULAR BLOCK [QRS AXIS <= -45, QR IN I, RS IN II] ST DEVIATION AND MODERATE T-WAVE ABNORMALITY, CONSIDER ANTERIOR ISCHEMIA [-0.1+ mV T-WAVE IN V3/V4] ABNORMAL ECG UNCONFIRMED REPORT Electronically signed by : Jarod Salter MD 06/10/2022 14:33:44
[2022-06-07 12:02] LABS: Basophils # 0.1 K/mm3 (0-0.2); Basophils % 0.5 % (0.1-2.0); Chloride 103 mmol/L (98-107); Eosinophils # 0.2 K/mm3 (0.0-0.4); Eosinophils % 1.7 % (0.1-12.0); Hemoglobin 10.8 g/dL (14.1-18.0); Lymphocytes % 16.4 % (10-50); Mean Corpuscular HGB Conc 29.9 g/dL (31.8-35.4); Mean Corpuscular Hemoglobin 29.5 pg (27.0-31.2); Mean Corpuscular Volume 98.8 fl (80-94); Mean Platelet Volume 7.9 fl (7.4-10.4); Monocytes # 0.8 K/mm3 (0.1-1.0); Monocytes % 6.4 % (1.7-9.3); Neutrophils # 9.1 K/mm3 (1.8-7.8); Platelet Count 475 K/mm3 (142-424); Potassium 4.6 mmoL/L (3.5-5.1); Red Blood Count 3.64 M/mm3 (4.60-6.20); Red Cell Distribution Width 15.2 % (11.5-17.5); Sodium 139 mmol/L (136-145); White Blood Count 12.2 K/mm3 (4.8-10.8)
[2022-06-07 12:04] LABS: Blood Urea Nitrogen 23 mg/dl (9-20)
[2022-06-07 12:05] LABS: Alanine Aminotransferase 40 U/L (12-78); Albumin Level 4.1 g/dl (3.5-5.0); Albumin/Globulin Ratio 1.5 (1.1-1.8); Alkaline Phosphatase 103 U/L (38-126); Anion Gap 20.6 mEq/L (5-15); Aspartate Amino Transferase 32 U/L (17-59); Bilirubin,Total 0.5 mg/dl (0.2-1.3); Calcium 9.3 mg/dl (8.4-10.2); Carbon Dioxide 20 mmol/L (22.0-30.0); Creatinine Clearance Estimated 62 mL/min (50-200); Estimated Glomerular Filt Rate 44 ml/min (>60); GFR (African American) 54 ML/MIN (>60); Globulin 2.8 g/dL (1.3-3.2); Glucose 289 mg/dl (74-100); Magnesium 1.9 mg/dl (1.6-2.3); Total Protein,Serum 6.9 g/dl (6.3-8.2)
--- NOTE | 2022-06-07 12:05 | PC.NURSE ---
lab called with potassium result, result given to RANCHO ONTIVEROS and ZAHIRA busby
--- NOTE | 2022-06-07 12:06 | HMH.EDWEAK ---
Discharge Plan Disposition Patient Disposition: Admitted As Inpatient Chief Complaint: Weakness Clinical Impressions Clinical Impression: Bradycardia, Chronic atrial fibrillation, Anemia, Acute renal insufficiency Discharge ED Provider: Inessa Sandy HPI General Chief complaint: Weakness Stated complaint: Low BP, lung pain, SOA Time Seen by Provider: 06/07/22 11:19 Mode of Arrival: Wheelchair Source of Information: Patient Limitations: No Limitations Description of Symptoms (Recalled from ER Triage Doc. by RN): pt to ED with SOB, weakness and observed bradycardia and hypotension at home. pt reports he took a SL nitro tablet at home for his low heart rate. pt reports a recent open heart surgery in april of this year. History of Present Illness HPI Narrative: Patient is a 57-year female who is complaining about having a low heart rate low blood pressure and feeling weak. Patient stated he woke up this morning and checked his blood pressure and heart rate. His blood pressure was 70/40 heart rate was in the 40s. But he still took his a.m. medication which was amiodarone, Coreg and Cardizem. Patient has no upper respiratory symptoms of cough or congestion patient has no GI symptoms of nausea, vomiting, and diarrhea. Patient was asymptomatic when he went to bed. He woke up this morning with his generalized weakness. MD Complaint: generalized weakness Onset (ago): hour(s) Duration: constant Location: generalized Migration: none Severity: moderate Relieving factors: none Exacerbating factors: movement and exertion Associated symptoms: chest pain, diaphoresis and shortness of breath Related Data Home Medications Medication Instructions Recorded Confirmed aspirin 81 mg tablet,delayed 81 mg PO DAILY Heart disease 03/21/22 06/06/22 release blood sugar diagnostic 03/21/22 06/06/22 bupropion HCl 150 mg tablet,12 hr 150 mg PO BID SMOKING CESSATION 03/21/22 06/06/22 sustained-release (Wellbutrin SR) clopidogrel 75 mg tablet 75 mg PO DAILY Blood thinner 03/21/22 06/06/22 empagliflozin 10 mg tablet 10 mg PO DAILY Heart disease 03/21/22 06/06/22 (Jardiance) fluticasone propionate 50 1 spray intranasal DAILY Allergy 03/21/22 06/06/22 mcg/actuation nasal symptoms spray,suspension (Flonase Allergy Relief) lancets 33 gauge (OneTouch Delica 03/21/22 06/06/22 Plus Lancet) metformin 1,000 mg tablet 1,000 mg PO BIDWMEAL Diabetes 03/21/22 06/06/22 nicotine 21 mg/24 hr daily 1 patch transdermal DAILY SMOKING 03/21/22 06/06/22 transdermal patch CESSATION omeprazole 40 mg capsule,delayed 40 mg PO DAILY Acid reflux 03/21/22 06/06/22 release acetaminophen 500 mg capsule 500 mg PO Q6HP PRN MILD TO 05/09/22 06/06/22 MODERATE PAIN insulin glargine 100 unit/mL (3 34 unit SQ HS Diabetes 05/31/22 06/06/22 mL) subcutaneous pen (Lantus Solostar U-100 Insulin) atorvastatin 40 mg tablet 40 mg PO HS Cholesterol 06/04/22 06/06/22 carvedilol 3.125 mg tablet 3.125 mg PO BID ELEVATED HEART RATE 06/04/22 06/06/22 dulaglutide 1.5 mg/0.5 mL 1.5 mg SQ WEEKLY Diabetes 06/04/22 06/06/22 subcutaneous pen injector (Trulicity) albuterol sulfate 90 mcg/actuation 2 puff inhalation QIDP PRN 06/05/22 06/06/22 aerosol inhaler shortness of breath or wheezing methocarbamol 500 mg tablet 500 mg PO TIDP PRN Muscle Spasm 06/05/22 06/06/22 Previous Rx's Medication Instructions Recorded nitroglycerin 0.4 mg sublingual 0.4 mg sublingual Q5M PRN chest 03/28/22 tablet pain #25 tabs amiodarone 200 mg tablet 200 mg PO BID #60 tabs 06/05/22 diltiazem HCl 180 mg 360 mg PO DAILY #60 caps 06/05/22 capsule,extended release 24 hr carvedilol 3.125 mg tablet (Coreg) 3.125 mg PO BID #60 tabs 06/06/22 Allergies Allergy/AdvReac Type Severity Reaction Status Date / Time No Known Allergies Allergy Verified 06/06/22 10:18 [facility] Disclaimer: The information contained in this section may have been updated after the
--- NOTE | 2022-06-07 12:08 | PC.NURSE ---
VANNESA Franco speaking with RANCHO ONTIVEROS
[2022-06-07 12:11] LABS: Activated Partial Thrombo Time 25.6 seconds (22.8-30.6); INR 1.06 (0.9-1.1); Prothrombin Time 11.4 seconds (10.1-12.5)
--- NOTE | 2022-06-07 12:11 | PC.NURSE ---
VANNESA Franco at BS. portable xray just taken
--- NOTE | 2022-06-07 12:12 | PC.NURSE ---
RANCHO ONTIVEROS speaking with Dr. Mccarthy (hospitalist)
--- NOTE | 2022-06-07 12:12 | PC.NURSE ---
Salvador at pt bedside at this time
--- NOTE | 2022-06-07 12:16 | PC.NURSE ---
notified care management of admission, spoke with sandie
[2022-06-07 12:17] LABS: Troponin I 0.07 ng/ml (0.00-0.034)
--- NOTE | 2022-06-07 12:22 | PC.NURSE ---
dr. johnson at BS
--- NOTE | 2022-06-07 12:55 | EXP.HP ---
History of Present Illness *Admission Date: 06/07/22 *Reason for visit:: weakness, fatigue *History of present illness: Mr. Zayas is a pleasant 57-year-old white male with significant past medical history of coronary artery disease, CABG x4 vessels April, mitral valve repair using annuloplasty ring April 2022, left atrial appendage clipping April 2022, HFrEF,?tobacco use disorder, type 2 diabetes, hypertension and hyperlipidemia who presented to the ER with generalized weakness and fatigue. On arrival patient was found to have an extremely low heart rate and hypotension that worsened over the course of the morning per his report. at bedside who supplements history. She states he complained of not feeling well and feeling a little weak yesterday but after starting his first dose of extended release diltiazem last night, he felt significantly worse this morning. She states he called her at work and reported feeling fatigue, nausea, weak and like he had a low heart rate. Of note he was recently in the hospital this past weekend with A-fib with RVR and started on rate controlling medications including p.o. amiodarone and diltiazem. He takes carvedilol 3.125 mg twice daily at baseline. Had some nausea during interview with dry heaves but no enrico emesis. Denies any chest pain, shortness of breath, fevers, confusion, falls or syncope. Labs on initial work-up in ER positive for troponin of 0.07, this is consistent with troponin from this past weekend. Slight kidney function with EMMA, creatinine 1.6. Up from normal baseline. Electrolytes otherwise normal. Medicine consulted for admission. After arrival to the floor, patient states he is feeling somewhat better. Color has improved since evaluating in the ER. He was initially quite hartman, color is more pink. Improvement in nausea, requesting something to drink. Blood pressure improved with systolics in the 110s. Cardiology consulted for assistance in care. [facility] Disclaimer: The information contained in this section may have been updated after the patient was seen, as this information can be updated by other users. Medical History Arthritis Asthma Coronary artery disease Deviated nasal septum Diabetes Diabetes mellitus, type 2 Dizziness Dyspnea GERD (gastroesophageal reflux disease) H/O blood clots History of heart attack History of stroke Hoarseness Hypertension Neuropathy Smoker Systolic heart failure Typical angina Surgical History History of heart artery stent Family History Diabetes Coronary artery disease Kidney disease Cancer Hypertension Stroke Social History Smoking Status: Never smoker second hand exposure: Yes alcohol intake: never counseling provided: none substance use type: denies use current occupational status: other Travel in the last 8 weeks: None household members: family housing: house Review of Systems Review of Systems Review of systems (narrative): 14 point review of systems performed, pertinent positives and negatives as per [facility] Meds Home Medications and Allergies Home Medications Medication Instructions Recorded Confirmed Type aspirin 81 mg tablet,delayed 81 mg PO DAILY Heart disease 03/21/22 06/07/22 History release bupropion HCl 150 mg tablet,12 hr 150 mg PO BID SMOKING CESSATION 03/21/22 06/07/22 History sustained-release (Wellbutrin SR) clopidogrel 75 mg tablet 75 mg PO DAILY platelet inhibitor 03/21/22 06/07/22 History empagliflozin 10 mg tablet 10 mg PO DAILY Heart disease 03/21/22 06/07/22 History (Jardiance) metformin 1,000 mg tablet 1,000 mg PO BIDWMEAL Diabetes 03/21/22 06/07/22 History omeprazole 40 mg capsule,delayed 40 mg PO DAILY Acid reflux 03/21/22 06/07/22 History release
[2022-06-07 13:14] LABS: Hemoglobin A1C 6.4 % (4.0-6.0)
--- NOTE | 2022-06-07 13:33 | HMH.PHAINT1 ---
Pharmacy Intervention Comments: home medicaiton list verified using list from previous discharge from this facility on 06/05/22
[2022-06-07 13:35] LABS: Coronavirus 19, PCR Not Detected (NotDetected); Influenza A, PCR Not Detected (NotDetected); Influenza B, PCR Not Detected (NotDetected)
--- NOTE | 2022-06-07 13:35 | HMH.PHAINT1 ---
Pharmacy Intervention Comments: home medication list verified using list from most previous discharge on 06/05/22
--- NOTE | 2022-06-07 13:40 | PC.NURSE ---
report called to jefry douglas on second floor. states she is going to come down to transport pt.
--- NOTE | 2022-06-07 14:01 | EXP.CARD.CON ---
History of Present Illness History of Present Illness Consult date: 06/07/22 Requesting physician: Matthew Mccarthy Consult reason: hypotension Chief complaint: Symptomatic bradycardia History of present illness: 57-year-old white male with significant past medical history of coronary artery disease, CABG x4 vessels April 2022, mitral valve repair using annuloplasty ring April 2022, left atrial appendage clipping April 2022, HFrEF, hypertension and hyperlipidemia presented to emergency department today with complaints of generalized weakness, fatigue, low heart rate and hypotension since this morning. Patient was recently admitted to hospital for episode of A-fib RVR and was started on p.o. amio and diltiazem at discharge on 06/05/2022. Patient reports he has been taking the Coreg 3.125 mg p.o. twice daily and amiodarone 200 mg p.o. twice daily since discharge. Patient was also prescribed diltiazem 360 mg oral daily at discharge. Pharmacy did not have medication ready until last night and patient took first dose yesterday at 5 PM. Patient reports he awoke this morning feeling poorly with symptoms as listed above. Upon presentation to emergency department initial systolic blood pressure was in the low 100s dropping as low as 70. EKG showed afib with a rate of 44 with T wave inversion in V1-V3. Patient had one episode with heart rate getting as low as 29 per emergency provider note. Was given a 250 mL fluid bolus and 0.4 mg of atropine in ER with little improvement. In addition patient was also given IV glucagon 1 mg push over 10 minutes for beta-blockade. Other labs as follow: WBC 12.2, hemoglobin 10.8, sodium 139, potassium 4.6, creatinine 1.6, BUN 23, globin A1c 6.4, troponin 0.07 which is down from previous admission 0.08. X-ray is negative for acute cardiopulmonary process. Patient was admitted for symptomatic bradycardia. [id number] Disclaimer: The information contained in this section may have been updated after the patient was seen, as this information can be updated by other users. Medical History Arthritis Asthma Coronary artery disease Deviated nasal septum Diabetes Diabetes mellitus, type 2 Dizziness Dyspnea GERD (gastroesophageal reflux disease) H/O blood clots History of heart attack History of stroke Hoarseness Hypertension Neuropathy Smoker Systolic heart failure Typical angina Surgical History History of heart artery stent Family History Diabetes Coronary artery disease Kidney disease Cancer Hypertension Stroke Social History (Updated 06/07/22 @ 14:56 by Myrna King, ZAHIRA) Smoking Status: Never smoker second hand exposure: Yes alcohol intake: never counseling provided: none substance use type: denies use current occupational status: other Travel in the last 8 weeks: None household members: family housing: house Review of Systems Constitutional Constitutional: Reports lethargy and Reports weakness *Cardiovascular Cardiovascular: Reports chest pain *Neurologic Neurologic: Reports weakness Exam Data for Last 24 hours Vital signs and Labs for Last 24 Hours: Temp Pulse Resp BP Pulse Ox 98.3 F 46 L 17 113/45 L 95 06/07/22 11:17 06/07/22 12:26 06/07/22 11:17 06/07/22 12:26 06/07/22 12:26 Laboratory Results - last 24 hr 06/07/22 11:25: WBC 12.2 H D, RBC 3.64 L, Hgb 10.8 L, Hct 36.0 L, MCV 98.8 H, MCH 29.5, MCHC 29.9 L, RDW 15.2, Plt Count 475 H, MPV 7.9, Neut % (Auto) 75.0, Lymph % (Auto) 16.4, [place] % (Auto) 6.4, Eos % (Auto) 1.7, Baso % (Auto) 0.5, Neut # (Auto) 9.1 H, Lymph # (Auto) 2.0, [place] # (Auto) 0.8, Eos # (Auto) 0.2, Baso # (Auto) 0.1 06/07/22 11:25: PT 11.4, INR 1.06, APTT 25.6 06/07/22 11:25: Sodium 139, Potassium 4.6, Chloride 103, Carbon Dioxide 20 L, Anion Gap 20.6 H, BUN 23 H, Creatinine 1.60 H D, Ayaka
--- NOTE | 2022-06-07 14:09 | PC.NURSE ---
pt to 2nd floor with RN and SRNA via stretcher
[2022-06-07 15:40] LABS: Troponin I 0.06 ng/ml (0.00-0.034)
[2022-06-07 18:43] LABS: Troponin I 0.07 ng/ml (0.00-0.034)
[2022-06-07 20:24] LABS: Chloride 104 mmol/L (98-107); Sodium 139 mmol/L (136-145)
[2022-06-07 20:25] LABS: Potassium 5.8 mmoL/L (3.5-5.1)
[2022-06-07 20:27] LABS: Blood Urea Nitrogen 29 mg/dl (9-20); Creatinine Clearance Estimated 54 mL/min (50-200); Estimated Glomerular Filt Rate 36 ml/min (>60); GFR (African American) 44 ML/MIN (>60)
[2022-06-07 20:28] LABS: Anion Gap 22.8 mEq/L (5-15); Calcium 9.4 mg/dl (8.4-10.2); Carbon Dioxide 18 mmol/L (22.0-30.0); Glucose 201 mg/dl (74-100)
[2022-06-07 21:20] LABS: POC Glucose,Bedside 239 (70-110)
[2022-06-07 21:20] LABS: POC Glucose,Bedside 179 (70-110)
[2022-06-08] VITALS (12 sets, daily range): BP systolic 132–158; BP diastolic 74–94; PULSE 45–92; RESP 16–21; TEMP 36.4–37.1; O2SAT 97–99; BMI 30.1
[2022-06-08 06:43] LABS: Basophils % 0.4 % (0.1-2.0); Eosinophils # 0.1 K/mm3 (0.0-0.4); Hematocrit 34.6 % (42.0-52.0); Hemoglobin 10.6 g/dL (14.1-18.0); Lymphocytes # 1.2 K/mm3 (0.7-4.5); Lymphocytes % 12.1 % (10-50); Mean Corpuscular HGB Conc 30.7 g/dL (31.8-35.4); Mean Corpuscular Hemoglobin 29.2 pg (27.0-31.2); Mean Corpuscular Volume 95.1 fl (80-94); Mean Platelet Volume 8.3 fl (7.4-10.4); Monocytes # 0.6 K/mm3 (0.1-1.0); Monocytes % 5.3 % (1.7-9.3); Neutrophils # 8.3 K/mm3 (1.8-7.8); Neutrophils % 81.2 % (37.0-80.0); Platelet Count 335 K/mm3 (142-424); Red Blood Count 3.63 M/mm3 (4.60-6.20); Red Cell Distribution Width 15.2 % (11.5-17.5); White Blood Count 10.3 K/mm3 (4.8-10.8)
[2022-06-08 06:46] LABS: Chloride 106 mmol/L (98-107)
[2022-06-08 06:47] LABS: Potassium 4.4 mmoL/L (3.5-5.1); Sodium 136 mmol/L (136-145)
[2022-06-08 06:49] LABS: Alanine Aminotransferase 730 U/L (12-78); Blood Urea Nitrogen 29 mg/dl (9-20); Creatinine Clearance Estimated 69 mL/min (50-200); Estimated Glomerular Filt Rate 48 ml/min (>60); GFR (African American) 58 ML/MIN (>60)
[2022-06-08 06:50] LABS: Albumin Level 3.9 g/dl (3.5-5.0); Albumin/Globulin Ratio 1.5 (1.1-1.8); Alkaline Phosphatase 106 U/L (38-126); Anion Gap 13.4 mEq/L (5-15); Bilirubin,Total 0.5 mg/dl (0.2-1.3); Calcium 8.9 mg/dl (8.4-10.2); Carbon Dioxide 21 mmol/L (22.0-30.0); Globulin 2.6 g/dL (1.3-3.2); Glucose 149 mg/dl (74-100); Magnesium 1.7 mg/dl (1.6-2.3); Total Protein,Serum 6.5 g/dl (6.3-8.2)
[2022-06-08 06:56] LABS: Aspartate Amino Transferase 785 U/L (17-59)
[2022-06-08 06:59] LABS: POC Glucose,Bedside 185 (70-110)
--- NOTE | 2022-06-08 08:10 | EXP.ACUTE.PN ---
Subjective *Date: 06/08/22 *Time: 09:10 Interval history: Feeling much better this morning. Heart rate better controlled, normal sinus rhythm at 81 on rounds this morning. Stable on room air. No nausea or vomiting. Denies abdominal pain. Denies chest pain or shortness of breath. at bedside, states patient looks much better. Color normalized. Medical Exam Vital signs and Labs for Last 24 Hours: Vital Signs Temp Pulse Pulse Pulse Resp BP BP 06/08/22 07:46 98.6 F 06/08/22 06:00 71 21 132/77 06/08/22 04:00 70 06/08/22 04:00 97.7 F 06/08/22 04:00 73 21 141/82 H 06/08/22 02:00 06/08/22 02:00 68 18 137/85 06/07/22 20:00 06/08/22 00:00 70 06/08/22 00:00 97.5 F L 06/07/22 22:00 62 21 150/82 H 06/07/22 20:00 80 06/07/22 20:00 97.8 F 06/07/22 20:00 43 L 21 146/78 H 06/07/22 16:00 40 L 06/07/22 18:00 40 L 18 119/59 L 06/07/22 14:10 98.3 F 43 L 17 110/53 L 06/07/22 16:00 46 L 16 134/62 06/07/22 15:30 48 L 125/59 L 06/07/22 15:00 44 L 116/49 L 06/07/22 14:30 42 L 115/41 L 06/07/22 15:14 98.1 F 06/07/22 14:17 98.5 F 42 L 18 107/50 L 06/07/22 12:26 46 L 113/45 L 06/07/22 12:06 46 L 96/50 L 06/07/22 12:00 109/57 L 06/07/22 11:53 51 L 86/67 L 06/07/22 11:32 51 L 92/63 L 06/07/22 11:31 40 L 81/62 L 06/07/22 11:17 98.3 F 92 H 17 148/92 H Pulse Ox 06/08/22 07:46 06/08/22 06:00 98 06/08/22 04:00 06/08/22 04:00 06/08/22 04:00 98 06/08/22 02:00 98 06/08/22 02:00 99 06/07/22 20:00 97 06/08/22 00:00 06/08/22 00:00 06/07/22 22:00 99 06/07/22 20:00 06/07/22 20:00 06/07/22 20:00 100 06/07/22 16:00 06/07/22 18:00 100 06/07/22 14:10 06/07/22 16:00 97 06/07/22 15:30 96 06/07/22 15:00 96 06/07/22 14:30 93 L 06/07/22 15:14 06/07/22 14:17 95 06/07/22 12:26 95 06/07/22 12:06 95 06/07/22 12:00 97 06/07/22 11:53 94 L 06/07/22 11:32 96 06/07/22 11:31 96 06/07/22 11:17 98 Intake and Output 06/07/22 06/08/22 06/08/22 23:59 07:59 15:59 Intake Total 240 / 300 780 / 780 Output Total 350 / 350 Balance 240 / 300 430 / 430 Intake: Intake, Oral Amount 240 / 300 780 / 780 Output: Output, Urine Amount 350 / 350 Other: Number of Unmeasured Voids 1 Number of Bowel Movements 1 Weight 92.221 kg Patient Weight 06/08/22 23:59 Weight 92.221 kg Laboratory Results - last 24 hr 06/07/22 11:25: WBC 12.2 H D, RBC 3.64 L, Hgb 10.8 L, Hct 36.0 L, MCV 98.8 H, MCH 29.5, MCHC 29.9 L, RDW 15.2, Plt Count 475 H, MPV 7.9, Neut % (Auto) 75.0, Lymph % (Auto) 16.4, [place] % (Auto) 6.4, Eos % (Auto) 1.7, Baso % (Auto) 0.5, Neut # (Auto) 9.1 H, Lymph # (Auto) 2.0, [place] # (Auto) 0.8, Eos # (Auto) 0.2, Baso # (Auto) 0.1 06/07/22 11:25: PT 11.4, INR 1.06, APTT 25.6 06/07/22 11:25: Sodium 139, Potassium 4.6, Chloride 103, Carbon Dioxide 20 L, Anion Gap 20.6 H, BUN 23 H, Creatinine 1.60 H D, Estimated Creat Clear 62, Estimated GFR 44 L, Est GFR ( Amer) 54 L D, Glucose 289 H, Calcium 9.3, Magnesium 1.9, Total Bilirubin 0.5, AST 32, ALT 40, Alkaline Phosphatase 103, Troponin I 0.07 H, Total Protein 6.9, Albumin 4.1, Globulin 2.8, Albumin/Globulin Ratio 1.5 06/07/22 11:25: Hemoglobin A1c 6.4 H D 06/07/22 12:23: Blood Type O Positive, Antibody Screen Negative 06/07/22 13:30: SARS-CoV-2 (PCR) Not detected, Influenza A Untype (PCR) Not detected, Influenza Type B (PCR) Not detected 06/07/22 15:07: Troponin I 0.06 H 06/07/22 16:25: POC Glucose 239 H 06/07/22 18:05: Troponin I 0.07 H 06/07/22 20:05: Sodium 139, Potassium 5.8 H D, Chloride 104, Carbon Dioxide 18 L, Anion Gap 22.8 H, BUN 29 H D, Creatinine 1.90 H, Estimated Creat Clear 54, Estimated GFR 36 L, Est GFR ( Amer) 44 L, Glucose 201 H D, Calcium 9.4 06/07/22 21:13: POC Glucos
--- NOTE | 2022-06-08 08:47 | ECG_ITS ---
APPROVED REPORT Exam: Resting ECG HR:86 bpm ECG Measurements Heart Rate 86 AXES ME 204 P 80 QRSd 136 QRS 237 QT 422 T 90 QTc 465 Conclusion SINUS RHYTHM RIGHT AXIS DEVIATION [QRS AXIS > 100] INTRAVENTRICULAR CONDUCTION DELAY [130+ ms QRS DURATION] ABNORMAL ECG UNCONFIRMED REPORT Electronically signed by : Jarod Salter MD 06/10/2022 14:26:30
--- NOTE | 2022-06-08 09:18 | EXP.CARD.PN ---
Subjective Subjective Date: 06/08/22 Time: 08:00 Principal diagnosis: symptomatic bradycardia Interval history: Doing well this am, denies complaints. Morning labs reviewed. Preliminary echo shows EF of 20-25 from yesterday. Repeat limted echo from today pending. Exam Data for Last 24 hours Vital signs and Labs for Last 24 Hours: Temp Pulse Resp BP Pulse Ox 98.6 F 78 18 150/80 H 98 06/08/22 07:46 06/08/22 08:00 06/08/22 08:00 06/08/22 08:00 06/08/22 08:00 Laboratory Results - last 24 hr 06/07/22 11:25: WBC 12.2 H D, RBC 3.64 L, Hgb 10.8 L, Hct 36.0 L, MCV 98.8 H, MCH 29.5, MCHC 29.9 L, RDW 15.2, Plt Count 475 H, MPV 7.9, Neut % (Auto) 75.0, Lymph % (Auto) 16.4, Major % (Auto) 6.4, Eos % (Auto) 1.7, Baso % (Auto) 0.5, Neut # (Auto) 9.1 H, Lymph # (Auto) 2.0, Major # (Auto) 0.8, Eos # (Auto) 0.2, Baso # (Auto) 0.1 06/07/22 11:25: PT 11.4, INR 1.06, APTT 25.6 06/07/22 11:25: Sodium 139, Potassium 4.6, Chloride 103, Carbon Dioxide 20 L, Anion Gap 20.6 H, BUN 23 H, Creatinine 1.60 H D, Estimated Creat Clear 62, Estimated GFR 44 L, Est GFR ( Amer) 54 L D, Glucose 289 H, Calcium 9.3, Magnesium 1.9, Total Bilirubin 0.5, AST 32, ALT 40, Alkaline Phosphatase 103, Troponin I 0.07 H, Total Protein 6.9, Albumin 4.1, Globulin 2.8, Albumin/Globulin Ratio 1.5 06/07/22 11:25: Hemoglobin A1c 6.4 H D 06/07/22 12:23: Blood Type O Positive, Antibody Screen Negative 06/07/22 13:30: SARS-CoV-2 (PCR) Not detected, Influenza A Untype (PCR) Not detected, Influenza Type B (PCR) Not detected 06/07/22 15:07: Troponin I 0.06 H 06/07/22 16:25: POC Glucose 239 H 06/07/22 18:05: Troponin I 0.07 H 06/07/22 20:05: Sodium 139, Potassium 5.8 H D, Chloride 104, Carbon Dioxide 18 L, Anion Gap 22.8 H, BUN 29 H D, Creatinine 1.90 H, Estimated Creat Clear 54, Estimated GFR 36 L, Est GFR ( Amer) 44 L, Glucose 201 H D, Calcium 9.4 06/07/22 21:13: POC Glucose 179 H 06/08/22 05:52: WBC 10.3, RBC 3.63 L, Hgb 10.6 L, Hct 34.6 L, MCV 95.1 H, MCH 29.2, MCHC 30.7 L, RDW 15.2, Plt Count 335 D, MPV 8.3, Neut % (Auto) 81.2 H, Lymph % (Auto) 12.1, Major % (Auto) 5.3, Eos % (Auto) 1.0, Baso % (Auto) 0.4, Neut # (Auto) 8.3 H, Lymph # (Auto) 1.2, Major # (Auto) 0.6, Eos # (Auto) 0.1, Baso # (Auto) 0.0 06/08/22 05:52: Sodium 136, Potassium 4.4 D, Chloride 106, Carbon Dioxide 21 L, Anion Gap 13.4, BUN 29 H, Creatinine 1.50 H D, Estimated Creat Clear 69, Estimated GFR 48 L, Est GFR ( Amer) 58 L D, Glucose 149 H D, Calcium 8.9, Magnesium 1.7 D, Total Bilirubin 0.5, AST 785 H* D, ALT 730 H*, Alkaline Phosphatase 106, Total Protein 6.5, Albumin 3.9, Globulin 2.6, Albumin/Globulin Ratio 1.5 06/08/22 05:52: POC Glucose 185 H I & O for Last 24 hours: Intake & Output 06/05/22 06/06/22 06/07/22 06/08/22 23:59 23:59 23:59 23:59 Intake Total 300 / 300 780 / 780 Output Total 0 / 0 350 / 350 Balance 300 / 300 430 / 430 Weight 200 lb 4 oz 203 lb 5 oz Constitutional Constitutional: no acute distress *Routine Respiratory Exam Respiratory: Present CTA bilaterally and symmetric chest movement *Routine Cardiovascular Exam Cardiovascular: Present RRR, Normal S1 and Normal S2 *Routine Abdominal Exam Abdominal: Present soft and normoactive bowel sounds; Absent tenderness *Routine Extremities Exam Extremities: Present full ROM and normal capillary refill; Absent edema *Routine Skin Exam Skin: Present intact, dry and warm Detailed Neck Exam: Thyroids Thyroid: Absent bruit Progress Note: A&P Assessment and plan (1) Bradycardia: Status: Acute (2) Anemia: Status: Acute (3) Congestive heart failure: Status: Acute (4) Smoker: Status: Acute (5) CAD (coronary artery disease): Status: Chronic (6) HTN (hypertension): Status: Chronic (7) HLD (hyperlipidemia): Status: Chronic (8) Diabetes: Status: Chronic (9) PAF (paroxysmal atrial fibrillation): Status: Acute Assessment and Plan Assessment and Plan for All Karen
[2022-06-08 11:31] LABS: POC Glucose,Bedside 144 (70-110)
[2022-06-08 16:34] LABS: Albumin Level 4.2 g/dl (3.5-5.0); Albumin/Globulin Ratio 1.4 (1.1-1.8); Alkaline Phosphatase 124 U/L (38-126); Anion Gap 15.4 mEq/L (5-15); Aspartate Amino Transferase 669 U/L (17-59); Bilirubin,Total 0.5 mg/dl (0.2-1.3); Blood Urea Nitrogen 25 mg/dl (9-20); Calcium 9.3 mg/dl (8.4-10.2); Carbon Dioxide 24 mmol/L (22.0-30.0); Chloride 103 mmol/L (98-107); Creatinine Clearance Estimated 80 mL/min (50-200); Estimated Glomerular Filt Rate 57 ml/min (>60); GFR (African American) 68 ML/MIN (>60); Globulin 3.1 g/dL (1.3-3.2); Glucose 131 mg/dl (74-100); Potassium 4.4 mmoL/L (3.5-5.1); Sodium 138 mmol/L (136-145); Total Protein,Serum 7.3 g/dl (6.3-8.2)
[2022-06-08 16:41] LABS: Alanine Aminotransferase 964 U/L (12-78)
[2022-06-08 17:06] LABS: POC Glucose,Bedside 128 (70-110)
--- NOTE | 2022-06-08 17:36 | PC.NURSE ---
Pt is alert and oriented x4. He is currently on RA with O2 saturations measuring >92%. HR has been mostly 70's-90's. He's ambulated to the bathroom independently. Appetite has been good. He's denied any complaints thus far. He is currently resting in bed watching TV, is at bedside. Call light is within reach.
[2022-06-08 21:06] LABS: POC Glucose,Bedside 164 (70-110)
[2022-06-09] VITALS (7 sets, daily range): BP systolic 100–143; BP diastolic 70–86; PULSE 73–90; RESP 17–18; TEMP 36.7–37.1; O2SAT 96–98; BMI 28.7
--- NOTE | 2022-06-09 05:11 | PC.NURSE ---
Pt has had no complaints this shift. NSR on tele with 1st degree AV block, rate 80's-90's. SBP 120's-130's. Pt has ambulated to bathroom independently this shift. Remains on RA, tolerating well.
[2022-06-09 06:41] LABS: POC Glucose,Bedside 154 (70-110)
[2022-06-09 06:51] LABS: Basophils % 0.4 % (0.1-2.0); Eosinophils # 0.2 K/mm3 (0.0-0.4); Eosinophils % 2.1 % (0.1-12.0); Hemoglobin 11.7 g/dL (14.1-18.0); Lymphocytes # 1.3 K/mm3 (0.7-4.5); Lymphocytes % 13.6 % (10-50); Mean Corpuscular HGB Conc 31.6 g/dL (31.8-35.4); Mean Corpuscular Hemoglobin 29.3 pg (27.0-31.2); Mean Corpuscular Volume 92.7 fl (80-94); Mean Platelet Volume 7.7 fl (7.4-10.4); Monocytes # 0.6 K/mm3 (0.1-1.0); Monocytes % 6.4 % (1.7-9.3); Neutrophils # 7.4 K/mm3 (1.8-7.8); Neutrophils % 77.6 % (37.0-80.0); Platelet Count 380 K/mm3 (142-424); Red Cell Distribution Width 15.4 % (11.5-17.5); White Blood Count 9.5 K/mm3 (4.8-10.8)
[2022-06-09 07:14] LABS: Chloride 101 mmol/L (98-107)
[2022-06-09 07:15] LABS: Potassium 4.4 mmoL/L (3.5-5.1); Sodium 136 mmol/L (136-145)
[2022-06-09 07:17] LABS: Aspartate Amino Transferase 314 U/L (17-59); Blood Urea Nitrogen 21 mg/dl (9-20); Creatinine Clearance Estimated 99 mL/min (50-200); Estimated Glomerular Filt Rate 76 ml/min (>60); GFR (African American) 93 ML/MIN (>60)
[2022-06-09 07:18] LABS: Albumin Level 4.1 g/dl (3.5-5.0); Albumin/Globulin Ratio 1.3 (1.1-1.8); Alkaline Phosphatase 109 U/L (38-126); Anion Gap 13.4 mEq/L (5-15); Bilirubin,Total 0.7 mg/dl (0.2-1.3); Calcium 9.7 mg/dl (8.4-10.2); Carbon Dioxide 26 mmol/L (22.0-30.0); Globulin 3.1 g/dL (1.3-3.2); Glucose 145 mg/dl (74-100); Magnesium 1.5 mg/dl (1.6-2.3); Total Protein,Serum 7.2 g/dl (6.3-8.2)
[2022-06-09 07:24] LABS: Alanine Aminotransferase 848 U/L (12-78)
--- NOTE | 2022-06-09 07:51 | EXP.DC.SUM ---
General Admission date:: 06/07/22 Discharge date: 06/09/22 HPI HPI HPI: Mr. Zayas is a pleasant 57-year-old white male with significant past medical history of coronary artery disease, CABG x4 vessels April, mitral valve repair using annuloplasty ring April 2022, left atrial appendage clipping April 2022, HFrEF,?tobacco use disorder, type 2 diabetes, hypertension and hyperlipidemia who presented to the ER with generalized weakness and fatigue. On arrival patient was found to have an extremely low heart rate and hypotension that worsened over the course of the morning per his report. at bedside who supplements history. She states he complained of not feeling well and feeling a little weak yesterday but after starting his first dose of extended release diltiazem last night, he felt significantly worse this morning. She states he called her at work and reported feeling fatigue, nausea, weak and like he had a low heart rate. Of note he was recently in the hospital this past weekend with A-fib with RVR and started on rate controlling medications including p.o. amiodarone and diltiazem. He takes carvedilol 3.125 mg twice daily at baseline. Had some nausea during interview with dry heaves but no enrico emesis. Denies any chest pain, shortness of breath, fevers, confusion, falls or syncope. Labs on initial work-up in ER positive for troponin of 0.07, this is consistent with troponin from this past weekend. Slight kidney function with EMMA, creatinine 1.6. Up from normal baseline. Electrolytes otherwise normal. Medicine consulted for admission. After arrival to the floor, patient states he is feeling somewhat better. Color has improved since evaluating in the ER. He was initially quite hartman, color is more pink. Improvement in nausea, requesting something to drink. Blood pressure improved with systolics in the 110s. Cardiology consulted for assistance in care. Hospital Course Hospital Course Hospital Course: 57-year-old status post CABG x4 6 weeks ago who presented with symptomatic bradycardia after initiating treatment at home for atrial fibrillation.? Improvement in blood pressure after IV fluids in the ER.? Held diltiazem. Medications adjusted. Cardiology consulted and assisted with care. Problems addressed as follows during admission: Symptomatic bradycardia and hypotension Paroxysmal atrial fibrillation -Cardiology consulted, appreciate their recommendations.? Bradycardia and hypotension began after starting high-dose diltiazem. Medication was stopped. Patient showed improvement over 12 to 24 hours after admission. Normalization of blood pressure. Medications adjusted with initiation of bisoprolol and Entresto. Maintained sinus rhythm. Held on anticoagulation at discharge. Continue on aspirin and Plavix. Chronic heart failure with reduced ejection fraction Status post CABG x4 6 weeks ago Status post mitral valve repair Status post atrial appendage clip: No indication for anticoagulation secondary to this. - EF 40 prior to CABG.? Repeat echo with EF 20 to 25%. Patient met criteria for LifeVest. Place prior to discharge. Will wear this for the next 30 days, will need repeat evaluation in the coming months. Cardiology assisted with management. Given heart failure, patient started on Entresto 24/26 mg p.o. twice daily. Started on bisoprolol 5 mg daily. Tolerated well with good heart rate control and appropriate blood pressure. Added Aldactone prior to discharge, 25 mg daily. Continue Jardiance for his heart failure and diabetes. Transaminitis -Concerning for shock liver in the setting of hypotension. Held statin during admission. Liver enzymes improving by day of discharge. Hold statin until follows up with cardiology and has repeat lab work. Type 2 diabetes -Insulin-dependent. A1c controlled at 6.4. Continued home glargine and sliding scale insulin during admission. Also continued oral regimen with Jardiance and met
--- NOTE | 2022-06-09 09:02 | EXP.CARD.PN ---
Subjective Subjective Date: 06/09/22 Time: 08:00 Principal diagnosis: symptomatic bradycardia Interval history: Doing well this morning, no complaints. Remains NSR and vitals are stable. Official echo shows EF of 25%. AM labs reviewed. Exam Data for Last 24 hours Vital signs and Labs for Last 24 Hours: Temp Pulse Resp BP Pulse Ox 98.8 F 73 18 132/77 97 06/09/22 07:56 06/09/22 07:56 06/09/22 07:56 06/09/22 07:56 06/09/22 07:56 Laboratory Results - last 24 hr 06/08/22 11:22: POC Glucose 144 H 06/08/22 16:00: Sodium 138, Potassium 4.4, Chloride 103, Carbon Dioxide 24, Anion Gap 15.4 H, BUN 25 H, Creatinine 1.30 H, Estimated Creat Clear 80, Estimated GFR 57 L, Est GFR ( Amer) 68, Glucose 131 H, Calcium 9.3, Total Bilirubin 0.5, AST 669 H*, ALT 964 H*, Alkaline Phosphatase 124, Total Protein 7.3, Albumin 4.2, Globulin 3.1, Albumin/Globulin Ratio 1.4 06/08/22 16:35: POC Glucose 128 H 06/08/22 20:20: POC Glucose 164 H 06/09/22 06:21: POC Glucose 154 H 06/09/22 06:40: WBC 9.5, RBC 4.00 L, Hgb 11.7 L, Hct 37.0 L, MCV 92.7, MCH 29.3, MCHC 31.6 L, RDW 15.4, Plt Count 380, MPV 7.7, Neut % (Auto) 77.6, Lymph % (Auto) 13.6, [place] % (Auto) 6.4, Eos % (Auto) 2.1, Baso % (Auto) 0.4, Neut # (Auto) 7.4, Lymph # (Auto) 1.3, [place] # (Auto) 0.6, Eos # (Auto) 0.2, Baso # (Auto) 0.0 06/09/22 06:40: Sodium 136, Potassium 4.4, Chloride 101, Carbon Dioxide 26, Anion Gap 13.4, BUN 21 H, Creatinine 1.00 D, Estimated Creat Clear 99, Estimated GFR 76, Est GFR ( Amer) 93 D, Glucose 145 H, Calcium 9.7, Magnesium 1.5 L D, Total Bilirubin 0.7, AST 314 H* D, ALT 848 H*, Alkaline Phosphatase 109, Total Protein 7.2, Albumin 4.1, Globulin 3.1, Albumin/Globulin Ratio 1.3 I & O for Last 24 hours: Intake & Output 06/06/22 06/07/22 06/08/22 06/09/22 23:59 23:59 23:59 23:59 Intake Total 300 / 300 1260 / 1260 480 / 480 Output Total 0 / 0 950 / 950 0 / 0 Balance 300 / 300 310 / 310 480 / 480 Weight 200 lb 4 oz 203 lb 4.965 oz 194 lb 1 oz Constitutional Constitutional: no acute distress *Routine Respiratory Exam Respiratory: Present CTA bilaterally and symmetric chest movement *Routine Cardiovascular Exam Cardiovascular: Present RRR, Normal S1 and Normal S2 *Routine Abdominal Exam Abdominal: Present soft and normoactive bowel sounds; Absent tenderness *Routine Extremities Exam Extremities: Present full ROM and normal capillary refill; Absent edema *Routine Skin Exam Skin: Present intact, dry and warm Detailed Neck Exam: Thyroids Thyroid: Absent bruit Progress Note: A&P Assessment and plan (1) Bradycardia: Status: Acute (2) Anemia: Status: Acute (3) Congestive heart failure: Status: Acute (4) Smoker: Status: Acute (5) CAD (coronary artery disease): Status: Chronic (6) HTN (hypertension): Status: Chronic (7) HLD (hyperlipidemia): Status: Chronic (8) Diabetes: Status: Chronic (9) PAF (paroxysmal atrial fibrillation): Status: Acute Assessment and Plan Assessment and Plan for All Diagnoses:: Paf -Recent hospital admission for A-fib RVR -Discharged home on Coreg 3.125 mg p.o. twice daily, amiodarone 200 mg p.o. twice daily and diltiazem 360 mg daily -Left atrial appendage clip 2022 -Rate currently afib in the 40s 06/08/2022: Patient is in NSR this am with a rate of 86 06/09/2022: Remains NSR rate controlled Symptomatic bradycardia/hypotension -Medication induced. Hold BB, Dilt, and amio at this time -Pacer pads in place -On dopamine drip-wean as can tolerate -Was given atropine and glucagon in ER prior to admission -Rate currently low 40s 06/08/2022: Resolved. Off of drip 06/09/2022: No change Chronic HFrEF -EF noted to be 40 prior to cabg -Repeat pending -BP too low for arb/arni, diuretics at this time. No signs of volume overload currently. Continue jardiance 06/08/2022- Preliminary echo shows EF of 20-25. Will start patient back on GDMT and an
[2022-06-09 10:58] LABS: POC Glucose,Bedside 212 (70-110)
--- NOTE | 2022-06-09 13:13 | INFXCTL.NOTE ---
Pt is up sitting in his chair. BP and HR stable. No complaints stated. Pt has had a shower today. IV DC in (R) wrist. Call light within reach.
--- NOTE | 2022-06-09 16:19 | P.CONPHA_ITS ---
Pharmacy Intervention Comments: Counseled patient and spouse on 3 new medications to START at discharge (spironolactone, Entresto, bisoprolol) and 3 medications to STOP at discharge (carvedilol, diltiazem, amiodarone). Patient and spouse expressed understanding of new medications' indication, dose, route, frequency, and potential side e ffects.
[2022-06-09 16:58] LABS: POC Glucose,Bedside 210 (70-110)
--- NOTE | 2022-06-10 09:05 | SW/DCPLANNER ---
Prior to hospital admission patient was established with [facility]. Clau diaz/ Julissa has stated that this agency is no longer covering [facility]. I did call and discuss this with patient and his . They are agreeable for patient information/order to [facility]. I will follow up with [facility] once information is reviewed.
--- NOTE | 2022-06-10 13:58 | CARE MANAGER ---
Spoke with patient. States received meds and is aware of follow up appointment. Denies questions or concerns. ZAHIRA Aquino
== END 2022-06-09 17:06 | disposition home health service (06) | DRG 309 ==
LOC: ER 11:38 → 2ND 12:39
PROVIDERS: Admitting Provider Internal Medicine Adolescent Medicine; Emergency Provider Emergency Medicine; PCP Family Medicine; Visit Provider Internal Medicine Adolescent Medicine
DX: R00.1 Bradycardia, unspecified (principal); I50.22 Chronic systolic (congestive) heart failure; T46.2X5A Adverse effect of other antidysrhythmic drugs, initial encounter; I25.10 Atherosclerotic heart disease of native coronary artery without angina pectoris; I95.2 Hypotension due to drugs; K21.9 Gastro-esophageal reflux disease without esophagitis; Z86.73 Personal history of transient ischemic attack (TIA), and cerebral infarction without residual deficits; E11.40 Type 2 diabetes mellitus with diabetic neuropathy, unspecified; J45.909 Unspecified asthma, uncomplicated; I11.0 Hypertensive heart disease with heart failure; Z95.1 Presence of aortocoronary bypass graft; Z79.4 Long term (current) use of insulin; I48.0 Paroxysmal atrial fibrillation; Z79.899 Other long term (current) drug therapy
CPT/HCPCS: 36415; 71045; 80048; 80053; 82962; 83036; 83735; 84484; 85025; 85610; 85730; 86850; 93005; 93306; 93308; 99291; C9803; J1610; J3475; U0003; U0005

== ENCOUNTER → 2022-06-16 16:23 | Outpatient (CLI) | payer MEDICARE, OTHER, SELFPAY ==
[2022-07-19 15:00] LABS: Basophils % 0.5 % (0.1-2.0); Eosinophils # 0.2 K/mm3 (0.0-0.4); Eosinophils % 2.4 % (0.1-12.0); Hematocrit 44.4 % (42.0-52.0); Hemoglobin 13.7 g/dL (14.1-18.0); Lymphocytes # 1.7 K/mm3 (0.7-4.5); Mean Corpuscular HGB Conc 30.9 g/dL (31.8-35.4); Mean Corpuscular Hemoglobin 27.9 pg (27.0-31.2); Mean Corpuscular Volume 90.2 fl (80-94); Mean Platelet Volume 7.1 fl (7.4-10.4); Monocytes # 0.5 K/mm3 (0.1-1.0); Monocytes % 5.5 % (1.7-9.3); Neutrophils # 7.1 K/mm3 (1.8-7.8); Neutrophils % 73.7 % (37.0-80.0); Platelet Count 419 K/mm3 (142-424); Red Blood Count 4.92 M/mm3 (4.60-6.20); Red Cell Distribution Width 15.3 % (11.5-17.5); White Blood Count 9.7 K/mm3 (4.8-10.8)
[2022-07-19 15:17] LABS: Alanine Aminotransferase 24 U/L (12-78); Albumin Level 4.4 g/dl (3.5-5.0); Alkaline Phosphatase 103 U/L (38-126); Anion Gap 22.7 mEq/L (5-15); Aspartate Amino Transferase 27 U/L (17-59); Bilirubin,Indirect 0.3 mg/dL (0.0-0.9); Bilirubin,Total 0.3 mg/dl (0.2-1.3); Bilirubin,Unconjugated 0.4 mg/dL (0.0-1.1); Blood Urea Nitrogen 31 mg/dl (9-20); Carbon Dioxide 20 mmol/L (22.0-30.0); Chloride 100 mmol/L (98-107); Cholesterol 246 mg/dl (140-200); Estimated Glomerular Filt Rate 48 ml/min (>60); GFR (African American) 58 ML/MIN (>60); Glucose 137 mg/dl (74-100); HDL Cholesterol 41 mg/dl (40-60); Magnesium 1.6 mg/dl (1.6-2.3); Potassium 4.7 mmoL/L (3.5-5.1); Sodium 138 mmol/L (136-145); Total Protein,Serum 7.8 g/dl (6.3-8.2); Triglycerides 318 mg/dl (30-150); VLDL Cholesterol 64 mg/dL (0-40)
[2022-07-19 15:28] LABS: Direct LDL Cholesterol 138.47 mg/dL (100-129)
[2022-07-19 15:38] LABS: Free T4 (Free Thyroxine) 1.34 ng/dl (0.78-2.19)
[2022-07-19 15:52] LABS: Thyroid Stimulating Hormone 1.89 uIU/mL (0.465-4.68)
== END ==
PROVIDERS: Visit Provider Nurse Practitioner
DX: E78.2 Mixed hyperlipidemia (principal); I11.0 Hypertensive heart disease with heart failure; I25.10 Atherosclerotic heart disease of native coronary artery without angina pectoris; I50.20 Unspecified systolic (congestive) heart failure
CPT/HCPCS: 36415; 80048; 80061; 80076; 83735; 84439; 84443; 85025

== ENCOUNTER 2022-06-17 21:38 | Emergency (ER) | payer MEDICARE, OTHER, SELFPAY ==
[2022-06-17 21:39] VITALS: BP 142/81; PULSE 82; RESP 19; TEMP 36.8; O2SAT 98; BMI 28.5
--- NOTE | 2022-06-17 21:59 | PC.NURSE ---
Dr. Calderon at [facility]
--- NOTE | 2022-06-17 22:14 | HMH.EDGENADL ---
Discharge Plan Disposition Patient Disposition: Home, Self-Care Condition: Good Chief Complaint: Extremity Problem,Nontraumatic Prescriptions Prescriptions: No Action nitroglycerin 0.4 mg tablet, sublingual 0.4 mg sublingual Q5M PRN (Reason: chest pain) Qty: 25 0RF Rx Instructions: do not exceed 3 doses per episode insulin glargine [Lantus Solostar U-100 Insulin] 100 unit/mL (3 mL) insulin pen 34 unit SQ HS aspirin 81 mg tablet,delayed release (DR/EC) 81 mg PO DAILY Qty: 90 3RF clopidogrel 75 mg tablet 75 mg PO DAILY Qty: 90 3RF Jardiance 10 mg tablet 10 mg PO DAILY Qty: 90 3RF bupropion HCl [Wellbutrin SR] 150 mg tablet sustained-release 12 hr 150 mg PO BID omeprazole 40 mg capsule,delayed release(DR/EC) 40 mg PO DAILY metformin 1,000 mg tablet 1,000 mg PO BIDWMEAL atorvastatin 40 mg tablet 40 mg PO HS Hold Instructions: pending follow-up with cardiology Trulicity 1.5 mg/0.5 mL pen injector 1.5 mg SQ WEEKLY methocarbamol 500 mg tablet 500 mg PO TIDP PRN (Reason: Muscle Spasms) albuterol sulfate 90 mcg/actuation HFA aerosol inhaler 2 puff inhalation QIDP PRN (Reason: shortness of breath or wheezing) fluticasone propionate 50 mcg/actuation [place],Suspension 1 spray INTRANASAL DAILY Rx Instructions: administer into each nostril acetaminophen 500 mg Capsule 500 mg PO Q6H PRN (Reason: mild to moderate pain) spironolactone 25 mg tablet 25 mg PO DAILY bisoprolol fumarate 5 mg tablet 5 mg PO DAILY losartan-hydrochlorothiazide 100-25 mg tablet 1 tab PO DAILY Entresto 49-51 mg tablet 1 tab PO BID Referrals Follow up/Referrals: Darron Franz MD [Primary Care Provider] - See instructions Clinical Impressions Clinical Impression: Lower extremity edema Discharge ED Provider: Dashawn Calderon Adult HPI General Chief complaint: Extremity Problem,Nontraumatic Stated complaint: left leg swollen Time Seen by Provider: 06/17/22 21:41 Mode of Arrival: Family Vehicle Source of Information: Patient and Significant Other Limitations: No Limitations Description of Symptoms (Recalled from ER Triage Doc. by RN): Pt c/o LLE swelling and tightness. States that he s/w the on-call MD for Dr. Franz and told pt to come to the ER to be checked for a blood clot. States that he saw Cardiology yesterday and they increased his Entresto. Last night, pt reports he had SOB when laying flat and he also noticed the swelling began in his L foot. Today, the swelling continued to increase to his knee and now the knee joint and his Scars are hurting. History of Present Illness HPI narrative: 57yo M presents to the ER secondary to left lower extremity swelling and tightness. Patient was seen by cardiology yesterday and did not have this condition. Recently underwent CABG in April with vein graft from left lower extremity and was provided 10 days of Lasix following. Is currently on HCTZ. Denies shortness of breath. Denies chest pain. Attempted to speak with cardiology office today but was not called back. manager security and safety physician for PCP office recommended to ER for further evaluation of possible DVT. No history of DVT. Related Data Home Medications Medication Instructions Recorded Confirmed bupropion HCl 150 mg tablet,12 hr 150 mg PO BID SMOKING CESSATION 03/21/22 06/17/22 sustained-release (Wellbutrin SR) metformin 1,000 mg tablet 1,000 mg PO BIDWMEAL Diabetes 03/21/22 06/16/22 omeprazole 40 mg capsule,delayed 40 mg PO DAILY Acid reflux 03/21/22 06/17/22 release insulin glargine 100 unit/mL (3 34 unit SQ HS Diabetes 05/31/22 06/16/22 mL) subcutaneous pen (Lantus Solostar U-100 Insulin) atorvastatin 40 mg tablet 40 mg PO HS Cholesterol 06/04/22 06/17/22 dulaglutide 1.5 mg/0.5 mL 1.5 mg SQ WEEKLY Diabetes 06/04/22 06/17/22 [facility] albuterol sulfate 90 mcg/actuation 2 puff i
[2022-06-17 22:27] VITALS: BP 138/87; PULSE 80; RESP 19; TEMP 36.8; O2SAT 97
== END 2022-06-17 22:36 | disposition home or self-care (01) ==
PROVIDERS: Emergency Provider Family Medicine; PCP Family Medicine
DX: R22.42 Localized swelling, mass and lump, left lower limb (principal); I10 Essential (primary) hypertension; Z87.891 Personal history of nicotine dependence
CPT/HCPCS: 96372; 99283; 99284

== ENCOUNTER → 2022-06-18 11:00 | Outpatient (CLI) | payer MEDICARE, OTHER, SELFPAY | PROVIDERS: PCP Family Medicine; Visit Provider Family Medicine | DX: M79.662 Pain in left lower leg (principal); R60.0 Localized edema | CPT/HCPCS: 93971 ==

== ENCOUNTER → 2022-07-19 10:19 | Outpatient (CLI) | payer MEDICARE, OTHER, SELFPAY | PROVIDERS: PCP Family Medicine; Visit Provider Nurse Practitioner | DX: R06.02 Shortness of breath (principal); I25.10 Atherosclerotic heart disease of native coronary artery without angina pectoris; I10 Essential (primary) hypertension; Q89.9 Congenital malformation, unspecified | CPT/HCPCS: 93308 ==

== ENCOUNTER → 2022-08-01 09:13 | Outpatient (CLI) | payer MEDICARE, OTHER, SELFPAY ==
[2022-08-01 11:43] LABS: PHA INR Fingerstick 2.8 (0.9-1.1)
== END ==
PROVIDERS: PCP Family Medicine; Visit Provider Physician Assistant
DX: E78.2 Mixed hyperlipidemia (principal); I25.10 Atherosclerotic heart disease of native coronary artery without angina pectoris; I48.0 Paroxysmal atrial fibrillation; I50.20 Unspecified systolic (congestive) heart failure; I50.9 Heart failure, unspecified; I51.3 Intracardiac thrombosis, not elsewhere classified; R60.0 Localized edema; Z95.1 Presence of aortocoronary bypass graft; I11.0 Hypertensive heart disease with heart failure; Z51.81 Encounter for therapeutic drug level monitoring; Z79.01 Long term (current) use of anticoagulants
CPT/HCPCS: 85610; 93308; G0463; Q9957

== ENCOUNTER 2022-08-08 11:08 | Outpatient (CLI) | payer MEDICARE, SELFPAY ==
[2022-08-08 14:41] LABS: PHA INR Fingerstick 3.6 (0.9-1.1)
== END 2022-08-08 14:54 ==
LOC: ACC 11:09
PROVIDERS: PCP Family Medicine; Visit Provider Physician Assistant
DX: Z51.81 Encounter for therapeutic drug level monitoring (principal); Z79.01 Long term (current) use of anticoagulants
CPT/HCPCS: 85610; 99211; G0463

== ENCOUNTER 2022-08-22 10:53 | Outpatient (CLI) | payer BC, MEDICARE, SELFPAY ==
[2022-08-22 13:22] LABS: PHA INR Fingerstick 2.7 (0.9-1.1)
== END 2022-08-22 14:28 ==
LOC: ACC 10:53
PROVIDERS: PCP Family Medicine; Visit Provider Physician Assistant
DX: Z79.01 Long term (current) use of anticoagulants (principal); Z51.81 Encounter for therapeutic drug level monitoring
CPT/HCPCS: 85610; 99211; G0463

== ENCOUNTER 2022-09-19 10:22 | Outpatient (CLI) | payer BC, MEDICARE, SELFPAY ==
[2022-09-19 11:22] LABS: PHA INR Fingerstick 3.8 (0.9-1.1)
== END 2022-09-19 11:26 ==
LOC: ACC 10:22
PROVIDERS: PCP Family Medicine; Visit Provider Physician Assistant
DX: Z79.01 Long term (current) use of anticoagulants (principal); Z51.81 Encounter for therapeutic drug level monitoring; R79.1 Abnormal coagulation profile
CPT/HCPCS: 85610; 99211; G0463

== ENCOUNTER → 2022-10-03 09:38 | Outpatient (CLI) | payer BC, MEDICARE, SELFPAY ==
--- NOTE | 2022-10-03 09:42 | CA_ITS ---
APPROVED REPORT EXAM: Limited 2D Echocardiogram Photoengraving Machine Operator/Tender: Vera Matthew RDCS Ht: 5 ft 10 in Wt: 191lbs BSA: 2.05 BP: 111/73 mmHg Rhythm: NSR Indications: EF CHECK ECHO OF 08/01/22 20-30%EF, CM,CAD,H/O AF,CHF,CABG, MITRAL RING M-Mode Dimensions RVDd 2.52 cm (0.9-2.6) LVDd 5.58 cm (3.5-5.7) LVDs 4.88 cm (3.5-5.7) IVSd 0.87 cm (0.6-1.1) PWd 0.84 cm (0.6-1.1) EF (Teich) 26.70% FS 12.50% EDV (Teich) 152.40 mL ESV (Teich) 111.70 mL Other Information Study Quality: Fair Conclusion This is a limited study to evaluate for interval changes in LVEF. Limited windows were obtained. The LV is severely dilated (LVEDVi=97 ml/m2). There is severe reduction in LV systolic function. There is near akinesis of the inferior, inferoseptal, and inferolateral LV escobar. LVEF is 20-25%. Compared to prior study from 07/2022, there is no significant changes in LV size or function. Electronically signed by : Cherelle Tarango, 10/03/2022 13:19:33
== END ==
PROVIDERS: PCP Family Medicine; Visit Provider Nurse Practitioner
DX: E78.5 Hyperlipidemia, unspecified (principal); I48.0 Paroxysmal atrial fibrillation; I50.20 Unspecified systolic (congestive) heart failure; I11.0 Hypertensive heart disease with heart failure
CPT/HCPCS: 93308

== ENCOUNTER 2022-10-06 09:52 | Outpatient (CLI) | payer BC, MEDICARE, SELFPAY ==
[2022-10-06 11:08] LABS: PHA INR Fingerstick 2.1 (0.9-1.1)
[2022-10-06 15:34] LABS: Basophils # 0.1 K/mm3 (0-0.2); Basophils % 0.5 % (0.1-2.0); Eosinophils # 0.2 K/mm3 (0.0-0.4); Eosinophils % 2.3 % (0.1-12.0); Hematocrit 43.7 % (42.0-52.0); Hemoglobin 13.7 g/dL (14.1-18.0); Lymphocytes # 1.8 K/mm3 (0.7-4.5); Mean Corpuscular HGB Conc 31.4 g/dL (31.8-35.4); Mean Corpuscular Hemoglobin 29.6 pg (27.0-31.2); Mean Platelet Volume 7.7 fl (7.4-10.4); Monocytes # 0.7 K/mm3 (0.1-1.0); Monocytes % 7.4 % (1.7-9.3); Neutrophils # 6.7 K/mm3 (1.8-7.8); Neutrophils % 70.8 % (37.0-80.0); Platelet Count 377 K/mm3 (142-424); Red Blood Count 4.65 M/mm3 (4.60-6.20); Red Cell Distribution Width 16.4 % (11.5-17.5); White Blood Count 9.4 K/mm3 (4.8-10.8)
[2022-10-06 15:58] LABS: Alanine Aminotransferase 24 U/L (12-78); Albumin Level 4.7 g/dl (3.5-5.0); Alkaline Phosphatase 88 U/L (38-126); Anion Gap 17.6 mEq/L (5-15); Aspartate Amino Transferase 24 U/L (17-59); Bilirubin,Indirect 0.7 mg/dL (0.0-0.9); Bilirubin,Total 0.7 mg/dl (0.2-1.3); Bilirubin,Unconjugated 0.8 mg/dL (0.0-1.1); Blood Urea Nitrogen 33 mg/dl (9-20); Calcium 10.5 mg/dl (8.4-10.2); Carbon Dioxide 29 mmol/L (22.0-30.0); Chloride 101 mmol/L (98-107); Chol/HDL Ratio 5.3 (1-3.5); Cholesterol 207 mg/dl (140-200); Estimated Glomerular Filt Rate 48 ml/min (>60); GFR (African American) 58 ML/MIN (>60); Glucose 121 mg/dl (74-100); HDL Cholesterol 39 mg/dl (40-60); Magnesium 1.6 mg/dl (1.6-2.3); Potassium 4.6 mmoL/L (3.5-5.1); Sodium 143 mmol/L (136-145); Triglycerides 267 mg/dl (30-150); VLDL Cholesterol 53 mg/dL (0-40)
[2022-10-06 16:09] LABS: Direct LDL Cholesterol 113.11 mg/dL (100-129)
[2022-10-06 16:28] LABS: Thyroid Stimulating Hormone 1.66 uIU/mL (0.465-4.68)
[2022-10-06 16:36] LABS: Free T4 (Free Thyroxine) 1.12 ng/dl (0.78-2.19)
== END 2022-10-06 11:16 ==
LOC: ACC 09:53
PROVIDERS: Nurse Practitioner; PCP Family Medicine; Visit Provider Physician Assistant
DX: Z51.81 Encounter for therapeutic drug level monitoring (principal); Z79.01 Long term (current) use of anticoagulants; E78.5 Hyperlipidemia, unspecified; I10 Essential (primary) hypertension; I48.0 Paroxysmal atrial fibrillation; I50.20 Unspecified systolic (congestive) heart failure; R06.00 Dyspnea, unspecified
CPT/HCPCS: 36415; 80048; 80061; 80076; 83735; 84439; 84443; 85025; 85610; 99211; G0463

== ENCOUNTER → 2022-10-14 12:44 | Outpatient (CLI) | payer BC, MEDICARE, SELFPAY ==
[2022-10-14 14:54] LABS: Anion Gap 18.4 mEq/L (5-15); Blood Urea Nitrogen 18 mg/dl (9-20); Calcium 9.9 mg/dl (8.4-10.2); Carbon Dioxide 23 mmol/L (22.0-30.0); Chloride 106 mmol/L (98-107); Estimated Glomerular Filt Rate 57 ml/min (>60); GFR (African American) 68 ML/MIN (>60); Glucose 103 mg/dl (74-100); Potassium 4.4 mmoL/L (3.5-5.1); Sodium 143 mmol/L (136-145)
== END ==
PROVIDERS: PCP Family Medicine; Visit Provider Nurse Practitioner Family
DX: I50.20 Unspecified systolic (congestive) heart failure (principal); I50.9 Heart failure, unspecified; R60.0 Localized edema
CPT/HCPCS: 36415; 80048

== ENCOUNTER 2022-10-18 08:23 | Day surgery (SDC) | payer BC, MEDICARE, SELFPAY ==
[2022-10-18] VITALS (8 sets, daily range): BP systolic 126–158; BP diastolic 77–94; PULSE 16–82; RESP 14–18; TEMP 37; O2SAT 96–100; BMI 28.3
--- NOTE | 2022-10-18 | IR_ITS ---
APPROVED REPORT Patient Location: Outpatient Computer Science Teacher: CARMELA Ramirez RT (R) PROCEDURES 1. Pocket formation for AICD. 2. Placement of atrial sensing and pacing coil into the right atrial appendage. 3. Placement of a ventricular sensing, pacing and shocking coil in the right ventricular apex. 4. Permanent AICD placement. INDICATION Systolic Congestive Heart Failure, ejection < 35%, [place] Heart Assoication Class 3 Congestive Heart Failure Informed consent was obtained prior to the procedure. COMPLICATIONS None Estimated Blood Loss: Less than 10 mls TECHNIQUE 1% Lidocaine with epinephrine used to anesthetized the left anterior aspect of the chest. Scalpel was used to make the initial cutaneous incision while electrocautery was used to dissect down tinto the fascia. The fascia was lifted off the pectoralis muscle and digitally manipulated creating a pocket for the defibrillator. The patient was then placed in Trendelenburg position and the subclavian vein was accessed 2 times via the Selinger technique. A 8 Turkish sheath was placed under fluoroscopic guidance into the subclavian vein. The dilator was removed from the sheath. Using fluoroscopic guidance, the ventricular lead was placed into the right ventricular apex, screwed and secured into place. Electronic interrogation proved acceptable thresholds and voltage within the lead. Using 3-0 silk, the ventricular lead was then secured into place and sheath peeled away. A 6 Turkish fresh sheath and dilator was placed over the existing wire. Using fluoroscopic guidance, the atrial lead was then placed into the right atrial appendage and screwed and secured in place. Electrical interrogation demonstrated acceptable thresholds and voltage number. The atrial lead was then secured into place using 3-0 silk and sheath peeled away. 1 gram of Ancef was used to flush the pocket. All 3 leads were connected to generator and tested via computer. The defibrillator then secured to the fascia. Monocryl was used to close the subcutaneous layers while angelica were used to close the cutaneous layer. A pressure dressing was placed and the patient was transferred to the postop holding area in stable condition for postoperative care. INTERROGATION Generator Model number: Mook BENOIT [id number] Generator Serial number: [id number] Atrial lead model number: Tendril STS [id number] Atrial lead serial number: [id number] P-wave: 2.4 mV Impedence: 440 Ohms Threshold: 1.25V @ 0.5ms Right Ventricular lead model number: Adonis [id number] Right Ventricular lead serial number: [id number] R-wave: 11.8mV Impedence: 360 Ohms Threshold: 0.5V @ 0.5ms Shock Impedence: 35 Ohms Pacing Parameters: Mode: DDD Base/Max Track:60 ppm / 130 ppm VT1: 150 bpm Moniter VT2: 181 bpm ATPx3 36.0J, 40.0J, 40.0Jx2 VF: 222 bpm ATPx1 36.0J, 40.0J, 40.0Jx4 No diaphragmatic stimulation at 10 volts. IMPRESSION 1. Successful pocket formation for AICD. 2. Successful placement of atrial sensing and pacing coil into the right atrial appendage. 3. Successful placement of a ventricular sensing, pacing and shocking coil in the right ventricular apex. 4. Successful permanent AICD placement. PLAN 1. Post op wound care, follow up office visit Electronically signed by : Isaak Jolly MD 10/18/2022 13:17:15
[2022-10-18 09:18] LABS: Basophils % 0.6 % (0.1-2.0); Eosinophils # 0.2 K/mm3 (0.0-0.4); Eosinophils % 2.6 % (0.1-12.0); Hematocrit 41.1 % (42.0-52.0); Hemoglobin 13.5 g/dL (14.1-18.0); Lymphocytes # 1.7 K/mm3 (0.7-4.5); Lymphocytes % 23.8 % (10-50); Mean Corpuscular Hemoglobin 31.3 pg (27.0-31.2); Mean Corpuscular Volume 94.9 fl (80-94); Mean Platelet Volume 8.4 fl (7.4-10.4); Monocytes # 0.5 K/mm3 (0.1-1.0); Monocytes % 6.5 % (1.7-9.3); Neutrophils # 4.8 K/mm3 (1.8-7.8); Neutrophils % 66.6 % (37.0-80.0); Platelet Count 282 K/mm3 (142-424); Red Blood Count 4.32 M/mm3 (4.60-6.20); Red Cell Distribution Width 15.7 % (11.5-17.5); White Blood Count 7.2 K/mm3 (4.8-10.8)
[2022-10-18 09:19] LABS: Chloride 106 mmol/L (98-107); Sodium 142 mmol/L (136-145)
[2022-10-18 09:20] LABS: Potassium 3.8 mmoL/L (3.5-5.1)
[2022-10-18 09:22] LABS: Blood Urea Nitrogen 27 mg/dl (9-20); Creatinine Clearance Estimated 63 mL/min (50-200); Estimated Glomerular Filt Rate 44 ml/min (>60); GFR (African American) 54 ML/MIN (>60)
[2022-10-18 09:23] LABS: Anion Gap 15.8 mEq/L (5-15); Calcium 10.3 mg/dl (8.4-10.2); Carbon Dioxide 24 mmol/L (22.0-30.0); Glucose 122 mg/dl (74-100)
[2022-10-18 09:25] LABS: Prothrombin Time 10.8 seconds (10.1-12.5)
--- NOTE | 2022-10-18 09:53 | P.PNANES_ITS ---
[facility] Disclaimer: The information contained in this section may have been updated after the patient was seen, as this information can be updated by other users. Medical History Arthritis Asthma Coronary artery disease Deviated nasal septum Diabetes Diabetes mellitus, type 2 Dizziness Dyspnea GERD (gastroesophageal reflux disease) H/O blood clots History of heart attack History of stroke Hoarseness Hypertension Neuropathy Smoker Systolic heart failure Typical angina Surgical History History of heart artery stent Family History Other Cancer Coronary artery disease Diabetes Hypertension Kidney disease Stroke Social History Smoking Status: Former smoker pack-years: 40 second hand exposure: Yes alcohol intake: never counseling provided: none substance use type: denies use current occupational status: other Travel in the last 8 weeks: None household members: family housing: house [facility] Anesthesia Checklist Patient Identification Patient Identification: Arm Band Structural Data Admitted From: Home Planned Operative Procedure/s: AICD Placement Consent for Planned Operative Procedure(s) Verified: Yes Verified Documents: Surgical Consent and History and Physical NPO Status Verified Time NPO: 03:00 (clear liquid) Additional verifications Anesthesia Reactions: No Airway Assessment Mallampati Score:: Class III C-Spine Mobility Assessed: Yes TMJ Mobility Assessed: Yes Dentition: Edentulous Neurological Assessment Level of Consciousness: Awake and Alert Anesthesia Plan Anesthesia Risk discussed: Yes Anesthesia Plan: Verified ASA Class: IV Anesthesia Type: MAC
== END 2022-10-18 14:00 | disposition home or self-care (01) ==
PROVIDERS: PCP Family Medicine; Visit Provider Internal Medicine
PROC: 0JH608Z Insertion of Defibrillator Generator into Chest Subcutaneous Tissue and Fascia, Open Approach (ICD-10-PCS; CPT 33249; principal; 2022-10-18 10:30)
DX: R93.1 Abnormal findings on diagnostic imaging of heart and coronary circulation (principal); Z79.02 Long term (current) use of antithrombotics/antiplatelets; Z79.4 Long term (current) use of insulin; Z79.899 Other long term (current) drug therapy; I50.21 Acute systolic (congestive) heart failure; I11.0 Hypertensive heart disease with heart failure; E11.9 Type 2 diabetes mellitus without complications; Z87.891 Personal history of nicotine dependence; I51.3 Intracardiac thrombosis, not elsewhere classified; Z95.1 Presence of aortocoronary bypass graft
CPT/HCPCS: 33249; 71045; 80048; 85025; 85610; C1721; C1895; C1898

== ENCOUNTER 2022-11-10 10:09 | Outpatient (CLI) | payer BC, MEDICARE, SELFPAY ==
[2022-11-10 14:52] LABS: PHA INR Fingerstick 1.6 (0.9-1.1)
== END 2022-11-10 14:57 ==
LOC: ACC 10:11
PROVIDERS: Physician Assistant; PCP Family Medicine; Visit Provider Family Medicine
DX: Z51.81 Encounter for therapeutic drug level monitoring (principal); Z79.01 Long term (current) use of anticoagulants; I42.8 Other cardiomyopathies
CPT/HCPCS: 85610; 99211; G0463

== ENCOUNTER 2022-11-25 10:04 | Outpatient (CLI) | payer BC, MEDICARE, SELFPAY ==
[2022-11-25 11:47] LABS: INR 5.51 (0.9-1.1); Prothrombin Time 53.2 seconds (10.1-12.5)
[2022-11-25 11:57] LABS: PHA INR Fingerstick 4.7 (0.9-1.1)
== END 2022-11-25 12:00 ==
LOC: ACC 10:05
PROVIDERS: PCP Family Medicine; Visit Provider Physician Assistant
DX: R79.1 Abnormal coagulation profile (principal)
CPT/HCPCS: 36415; 85610; 99211; G0463

== ENCOUNTER → 2022-12-07 23:15 | Outpatient (CLI) | payer BC, MEDICARE, SELFPAY ==
[2022-12-07 20:12] LABS: Creatinine,Urine Random 35 mg/dL (Not Estab.)
== END ==
PROVIDERS: PCP Internal Medicine; Visit Provider Internal Medicine
DX: E78.5 Hyperlipidemia, unspecified (principal)
CPT/HCPCS: 82043; 82570

== ENCOUNTER → 2022-12-12 11:36 | Outpatient (CLI) | payer BC, MEDICARE, SELFPAY ==
[2022-12-12 12:16] LABS: Basophils % 0.6 % (0.1-2.0); Eosinophils # 0.2 K/mm3 (0.0-0.4); Eosinophils % 3.3 % (0.1-12.0); Hematocrit 36.8 % (42.0-52.0); Hemoglobin 12.4 g/dL (14.1-18.0); Lymphocytes # 1.6 K/mm3 (0.7-4.5); Lymphocytes % 21.8 % (10-50); Mean Corpuscular HGB Conc 33.7 g/dL (31.8-35.4); Mean Corpuscular Hemoglobin 31.9 pg (27.0-31.2); Mean Corpuscular Volume 94.4 fl (80-94); Mean Platelet Volume 8.3 fl (7.4-10.4); Monocytes # 0.5 K/mm3 (0.1-1.0); Monocytes % 7.3 % (1.7-9.3); Neutrophils # 4.9 K/mm3 (1.8-7.8); Neutrophils % 67.1 % (37.0-80.0); Platelet Count 255 K/mm3 (142-424); Red Cell Distribution Width 14.6 % (11.5-17.5); White Blood Count 7.2 K/mm3 (4.8-10.8)
[2022-12-12 12:46] LABS: Hemoglobin A1C 6.2 % (4.0-6.0)
[2022-12-12 13:03] LABS: Alanine Aminotransferase 29 U/L (12-78); Albumin Level 3.8 g/dl (3.5-5.0); Albumin/Globulin Ratio 1.5 (1.1-1.8); Alkaline Phosphatase 74 U/L (38-126); Anion Gap 12.7 mEq/L (5-15); Aspartate Amino Transferase 32 U/L (17-59); Bilirubin,Total 0.2 mg/dl (0.2-1.3); Blood Urea Nitrogen 21 mg/dl (9-20); Calcium 9.3 mg/dl (8.4-10.2); Carbon Dioxide 26 mmol/L (22.0-30.0); Chloride 107 mmol/L (98-107); Chol/HDL Ratio 4.2 (1-3.5); Cholesterol 131 mg/dl (140-200); Estimated Glomerular Filt Rate 62 ml/min (>60); GFR (African American) 75 ML/MIN (>60); Globulin 2.6 g/dL (1.3-3.2); Glucose 141 mg/dl (74-100); HDL Cholesterol 31 mg/dl (40-60); Potassium 3.7 mmoL/L (3.5-5.1); Sodium 142 mmol/L (136-145); Total Protein,Serum 6.4 g/dl (6.3-8.2); Triglycerides 160 mg/dl (30-150); VLDL Cholesterol 32 mg/dL (0-40)
[2022-12-12 13:22] LABS: 25-OH Vitamin D, Total 48.1 ng/mL (30-100)
[2022-12-12 13:34] LABS: Prostate Specific Ag Screen 0.6 ng/ml (0.0-4.0); Thyroid Stimulating Hormone 1.14 uIU/mL (0.465-4.68)
[2022-12-12 14:50] LABS: Direct LDL Cholesterol 79.17 mg/dL (100-129)
[2022-12-12 15:31] LABS: Vitamin B12 229 pg/mL (239-931)
== END ==
LOC: LAB 11:38
PROVIDERS: PCP Internal Medicine; Visit Provider Internal Medicine
DX: E78.5 Hyperlipidemia, unspecified (principal); I50.20 Unspecified systolic (congestive) heart failure; N18.31 Chronic kidney disease, stage 3a; E11.9 Type 2 diabetes mellitus without complications; Z79.4 Long term (current) use of insulin; Z79.899 Other long term (current) drug therapy; Z12.5 Encounter for screening for malignant neoplasm of prostate
CPT/HCPCS: 36415; 80053; 80061; 82306; 82607; 83036; 84443; 85025; G0103

== ENCOUNTER → 2023-01-02 10:45 | Outpatient (CLI) | payer BC, MEDICARE, SELFPAY ==
[2023-01-02 11:38] LABS: Chloride 106 mmol/L (98-107); Sodium 142 mmol/L (136-145)
[2023-01-02 11:39] LABS: Potassium 3.4 mmoL/L (3.5-5.1)
[2023-01-02 11:42] LABS: Anion Gap 12.4 mEq/L (5-15); Blood Urea Nitrogen 17 mg/dl (9-20); Carbon Dioxide 27 mmol/L (22.0-30.0); Estimated Glomerular Filt Rate 52 ml/min (>60); GFR (African American) 63 ML/MIN (>60); Glucose 104 mg/dl (74-100)
[2023-01-02 11:51] LABS: NT Pro Brain Natriuretic Pep. 11700 pg/mL (0-125)
== END ==
LOC: LAB 10:46
PROVIDERS: PCP Internal Medicine; Visit Provider Physician Assistant
DX: N18.31 Chronic kidney disease, stage 3a (principal); R60.9 Edema, unspecified
CPT/HCPCS: 36415; 80048; 83880

== ENCOUNTER 2023-01-02 11:01 | Emergency (ER) | payer BC, MEDICARE, SELFPAY ==
[2023-01-02 11:10] VITALS: BP 131/84; PULSE 67; RESP 18; TEMP 37; O2SAT 98; BMI 29.2
--- NOTE | 2023-01-02 11:18 | EXP.UTC ---
Discharge Plan Disposition Patient Disposition: Home, Self-Care Condition: Good Prescriptions Prescriptions: New amoxicillin [amoxicillin] 500 mg tablet 500 mg PO TID 10 Days Qty: 30 0RF benzonatate [benzonatate] 100 mg capsule 100 mg PO TIDP PRN (Reason: Cough) Qty: 30 0RF No Action amiodarone 200 mg tablet 200 mg PO BID Patient Comments: TAKE 1 TABLET BY MOUTH TWICE DAILY gabapentin 300 mg capsule 300 mg PO TID 30 Days Qty: 90 1RF mecobalamin (vitamin B12) 1,000 mcg tablet,chewable 1,000 mcg PO DAILY 30 Days Qty: 30 4RF nitroglycerin 0.4 mg tablet, sublingual 0.4 mg sublingual Q5M PRN (Reason: chest pain) Qty: 25 0RF Rx Instructions: do not exceed 3 doses per episode clopidogrel 75 mg tablet 75 mg PO DAILY Qty: 90 3RF Jardiance 10 mg tablet 10 mg PO DAILY Qty: 90 3RF atorvastatin 40 mg tablet 80 mg PO HS Qty: 90 3RF Hold Instructions: pending follow-up with cardiology bupropion HCl 150 mg tablet sustained-release 12 hr See Rx Instructions .ROUTE .COMPLEX Qty: 180 0RF Dose Instruction: Take 1 tablet by mouth twice daily Rx Instructions: Take 1 tablet by mouth twice daily insulin glargine [Lantus Solostar U-100 Insulin] 100 unit/mL (3 mL) insulin pen See Rx Instructions .ROUTE .COMPLEX Qty: 15 3RF Rx Instructions: INJECT 30 UNITS UNDER THE SKIN ONCE DAILY . CAN TITRATE UP BY 2 UNITS EVERY 3-4 DAYS UP TO DOSE OF 40 UNITS EVERY MORNING DIRECTED metformin 1,000 mg tablet 1,000 mg PO BID Qty: 60 2RF Hold Instructions: Resume on 10/21/22. (DME) Blood Glucose Test Strip See Rx Instructions .Route Qty: 100 2RF Rx Instructions: Check sugar twice daily or As directed bumetanide 1 mg tablet 1 mg PO DIRECTED PRN (Reason: .) Qty: 60 0RF Rx Instructions: One- two tablets daily as directed furosemide [Lasix] 40 mg tablet 40 mg PO DAILY Qty: 30 2RF Rx Instructions: Take one tab daily for three days, then once daily prn thereafter omeprazole 40 mg capsule,delayed release(DR/EC) 40 mg PO DAILY Trulicity 1.5 mg/0.5 mL pen injector 1.5 mg SQ WEEKLY methocarbamol 500 mg tablet 500 mg PO TIDP PRN (Reason: Muscle Spasms) albuterol sulfate 90 mcg/actuation HFA aerosol inhaler 2 puff inhalation QIDP PRN (Reason: shortness of breath or wheezing) fluticasone propionate 50 mcg/actuation [place],Suspension 1 spray INTRANASAL DAILY Rx Instructions: administer into each nostril acetaminophen 500 mg Capsule 500 mg PO Q6H PRN (Reason: mild to moderate pain) spironolactone 25 mg tablet 25 mg PO DAILY bisoprolol fumarate 5 mg tablet 5 mg PO DAILY warfarin 5 mg tablet 5 mg PO DAILY Rx Instructions: two daily monday two daily monday one on monday go to coumadin clinic monday Entresto 97-103 mg tablet 1 tab PO BID Referrals Follow up/Referrals: Mal Barfield DO [Primary Care Provider] - See instructions Activity Restrictions/Add. Instructions Additional Instructions/Restrictions: Drink plenty of fluids. Take tylenol or ibuprofen for pain or fever. Take the medications as directed. Follow up with your regular doctor. GO TO THE ER FOR ANY WORSENING SYMPTOMS Clinical Impressions Clinical Impression: Acute bronchitis, Acute viral syndrome Instructions Patient Instructions: Acute Bronchitis, DI for Acute Bronchitis Discharge ED Provider[place] [facility] [place] General Stated complaint: cough, SOA, headache, congestion Time Seen by Provider: 01/02/23 11:31 History of Present Illness Provider Complaint: He states that for the past 2 weeks he has had sinus congestion. He states that his symptoms are worsening. Related Data Home Medications Medication Instructions Recorded Confirmed omeprazole 40 mg capsule,delayed 40 mg PO DAILY Acid reflux 03/21/22 12/07/22 release d
--- NOTE | 2023-01-02 11:25 | XR_ITS ---
FINAL REPORT CLINICAL HISTORY: . Shortness of breath COMPARISON: 10/18/2022 FINDINGS: 2 views of the chest were obtained . The heart is normal in size. The mediastinum is within normal limits. The lungs are clear. There is no pneumothorax. Osseous structures are unremarkable. IMPRESSION: No acute cardiopulmonary process. Reviewed, Interpreted and Dictated by Gurinder Caruso MD Transcribed by Dafne Gillespie Authenticated and [facility]
[2023-01-02 11:55] VITALS: BP 131/84; PULSE 67; RESP 18; TEMP 37; O2SAT 98
[2023-01-02 11:57] LABS: Adenovirus,PCR Not Detected (NotDetected); Coronavirus 19, PCR Not Detected (NotDetected); Coronavirus 229E Not Detected (NotDetected); Coronavirus NL63 Not Detected (NotDetected); Coronavirus OC43 Not Detected (NotDetected); Coronovirus HKU1,PCR Not Detected (NotDetected); Human Metapneumovirus Not Detected (NotDetected); Influenza A, PCR Not Detected (NotDetected); Influenza AH1, 2009 Not Detected (NotDetected); Influenza AH1, PCR Not Detected (NotDetected); Influenza AH3,PCR Not Detected (NotDetected); Influenza B, PCR Not Detected (NotDetected); Parainfluenza 1, PCR Not Detected (NotDetected); Parainfluenza 2, PCR Not Detected (NotDetected); Parainfluenza 3, PCR Not Detected (NotDetected); Parainfluenza 4, PCR Not Detected (NotDetected); Respiratory Syncytial Virus Not Detected (NotDetected)
[2023-01-02 13:46] LABS: Rhinovirus/Enterovirus Detected (NotDetected)
== END 2023-01-02 11:54 | disposition home or self-care (01) ==
PROVIDERS: Nurse Practitioner Family; Emergency Provider Emergency Medicine; PCP Internal Medicine
DX: J20.9 Acute bronchitis, unspecified (principal); R06.02 Shortness of breath; R05.9 Cough, unspecified; R51.9 Headache, unspecified; R09.81 Nasal congestion; B34.1 Enterovirus infection, unspecified; E11.40 Type 2 diabetes mellitus with diabetic neuropathy, unspecified; J45.909 Unspecified asthma, uncomplicated; I25.119 Atherosclerotic heart disease of native coronary artery with unspecified angina pectoris; I11.0 Hypertensive heart disease with heart failure; I50.20 Unspecified systolic (congestive) heart failure; K21.9 Gastro-esophageal reflux disease without esophagitis; Z79.4 Long term (current) use of insulin; Z86.73 Personal history of transient ischemic attack (TIA), and cerebral infarction without residual deficits
CPT/HCPCS: 71046; 87632; 87635; 99212; 99214; G0463

== ENCOUNTER → 2023-01-09 08:46 | Outpatient (CLI) | payer BC, MEDICARE, SELFPAY ==
[2023-01-09 19:03] LABS: Basophils # 0.1 K/mm3 (0-0.2); Basophils % 0.6 % (0.1-2.0); Eosinophils # 0.1 K/mm3 (0.0-0.4); Eosinophils % 1.1 % (0.1-12.0); Hematocrit 39.2 % (42.0-52.0); Hemoglobin 12.3 g/dL (14.1-18.0); Lymphocytes # 1.9 K/mm3 (0.7-4.5); Lymphocytes % 18.3 % (10-50); Mean Corpuscular HGB Conc 31.3 g/dL (31.8-35.4); Mean Corpuscular Volume 95.8 fl (80-94); Mean Platelet Volume 8.6 fl (7.4-10.4); Monocytes # 0.7 K/mm3 (0.1-1.0); Monocytes % 6.6 % (1.7-9.3); Neutrophils # 7.5 K/mm3 (1.8-7.8); Neutrophils % 73.5 % (37.0-80.0); Platelet Count 312 K/mm3 (142-424); Red Blood Count 4.09 M/mm3 (4.60-6.20); Red Cell Distribution Width 15.1 % (11.5-17.5); White Blood Count 10.2 K/mm3 (4.8-10.8)
[2023-01-09 20:13] LABS: Chloride 102 mmol/L (98-107); Sodium 139 mmol/L (136-145)
[2023-01-09 20:14] LABS: Potassium 4.6 mmoL/L (3.5-5.1)
[2023-01-09 20:16] LABS: Alanine Aminotransferase 303 U/L (12-78); Albumin Level 4.2 g/dl (3.5-5.0); Albumin/Globulin Ratio 1.4 (1.1-1.8); Alkaline Phosphatase 196 U/L (38-126); Anion Gap 15.6 mEq/L (5-15); Aspartate Amino Transferase 88 U/L (17-59); Bilirubin,Total 1.2 mg/dl (0.2-1.3); Blood Urea Nitrogen 19 mg/dl (9-20); Calcium 9.3 mg/dl (8.4-10.2); Carbon Dioxide 26 mmol/L (22.0-30.0); Creatine Kinase 147 U/L (55-170); Estimated Glomerular Filt Rate 69 ml/min (>60); GFR (African American) 83 ML/MIN (>60); Globulin 2.9 g/dL (1.3-3.2); Glucose 85 mg/dl (74-100); Total Protein,Serum 7.1 g/dl (6.3-8.2)
[2023-01-09 20:27] LABS: Creatine Kinase MB 3.7 ng/ml (0.0-2.03)
[2023-01-09 20:30] LABS: Troponin I 0.04 ng/ml (0.00-0.034)
== END ==
PROVIDERS: PCP Internal Medicine; Visit Provider Internal Medicine
DX: E11.9 Type 2 diabetes mellitus without complications (principal); E78.5 Hyperlipidemia, unspecified; Z79.4 Long term (current) use of insulin
CPT/HCPCS: 80053; 82550; 82553; 84484; 85025

== ENCOUNTER 2023-01-10 10:44 | Inpatient (IN) | payer BC, MEDICARE, SELFPAY ==
[2023-01-10] VITALS (21 sets, daily range): BP systolic 109–170; BP diastolic 68–110; PULSE 70–117; RESP 16–24; TEMP 36.3–37; O2SAT 92–100; BMI 30.6
--- NOTE | 2023-01-10 | ECG_ITS ---
APPROVED REPORT Exam: Resting ECG HR:117 bpm ECG Measurements Heart Rate 117 AXES OK 159 P 250 QRSd 133 QRS -64 QT 401 T 266 QTc 471 Conclusion SINUS TACHYCARDIA INTRAVENTRICULAR CONDUCTION DELAY [130+ ms QRS DURATION] ABNORMAL ECG UNCONFIRMED REPORT Electronically signed by : Jarod Salter MD 01/11/2023 17:12:21
--- NOTE | 2023-01-10 11:08 | EXP.HP ---
History of Present Illness *Admission Date: 01/10/23 *Reason for visit:: weight gain, shortness of breath *History of present illness: 57-year-old male with history of CAD, CABG earlier this year, CHF who presents with weight gain and fatigue to cardiology clinic. Found to be in a flutter in the cardiology clinic on EKG. Given his decompensation, a flutter, shortness of breath, cardiology requested admission for diuresis and cardioversion. Medicine agreed to admit. [facility] Disclaimer: The information contained in this section may have been updated after the patient was seen, as this information can be updated by other users. Medical History Arthritis Asthma Coronary artery disease Deviated nasal septum Diabetes Diabetes mellitus, type 2 Dizziness Dyspnea GERD (gastroesophageal reflux disease) H/O blood clots History of heart attack History of stroke Hoarseness Hypertension Neuropathy Smoker Systolic heart failure Typical angina Surgical History History of heart artery stent Family History Diabetes Coronary artery disease Kidney disease Cancer Hypertension Stroke Social History Smoking Status: Current some day smoker tobacco type: cigarettes packs per day: 1 second hand exposure: Yes alcohol intake: never counseling provided: none substance use type: denies use current occupational status: other Travel in the last 8 weeks: None household members: family housing: house Review of Systems Review of Systems Review of systems (narrative): 14 point review of systems performed, pertinent positives and negatives as per HPI Meds Home Medications and Allergies Home Medications Medication Instructions Recorded Confirmed Type omeprazole 40 mg capsule,delayed 40 mg PO DAILY Acid reflux 03/21/22 01/10/23 History release nitroglycerin 0.4 mg sublingual 0.4 mg sublingual Q5M PRN chest 03/28/22 01/10/23 Rx tablet pain #25 tabs dulaglutide 1.5 mg/0.5 mL 1.5 mg SQ WEEKLY Diabetes 06/04/22 01/10/23 History subcutaneous pen injector (Trulicity) albuterol sulfate 90 mcg/actuation 2 puff inhalation QIDP PRN 06/05/22 01/10/23 History aerosol inhaler shortness of breath or wheezing methocarbamol 500 mg tablet 500 mg PO TIDP PRN Muscle Spasms 06/05/22 01/10/23 History acetaminophen 500 mg capsule 500 mg PO Q6H PRN mild to moderate 06/07/22 01/10/23 History pain fluticasone propionate 50 1 spray intranasal DAILY allergies 06/07/22 01/10/23 History mcg/actuation nasal spray,suspension clopidogrel 75 mg tablet 75 mg PO DAILY platelet inhibitor 06/16/22 01/10/23 Rx #90 tabs empagliflozin 10 mg tablet 10 mg PO DAILY Heart disease #90 06/16/22 01/10/23 Rx (Jardiance) tabs bisoprolol fumarate 5 mg tablet 5 mg PO DAILY heart rate 06/17/22 01/10/23 History spironolactone 25 mg tablet 25 mg PO DAILY High blood pressure 06/17/22 01/10/23 History atorvastatin 40 mg tablet 80 mg PO HS Cholesterol #90 tabs 10/14/22 01/10/23 Rx sacubitril 97 mg-valsartan 103 mg 1 tab PO BID 10/18/22 01/10/23 History tablet (Entresto) warfarin 5 mg tablet 2.5 mg PO SUTUTHSA Blood 10/18/22 01/10/23 History Thinner/LV Thrombus mecobalamin (vitamin B12) 1,000 1,000 mcg PO DAILY 30 days #30 tabs 12/13/22 01/10/23 Rx mcg chewable tablet blood sugar diagnostic (Blood #100 ea 12/19/22 01/10/23 Rx Glucose Test strips) metformin 1,000 mg tablet 1,000 mg PO BID Diabetes #60 tabs 12/19/22 01/10/23 Rx amoxicillin 500 mg tablet 500 mg PO TID 10 days #30 tabs 01/02/23 01/10/23 Rx tramadol 50 mg tablet 50 mg PO Q8H PRN pain #30 tabs 01/09/23 01/10/23 Rx benzonatate 100 mg capsule 100 mg PO TIDP PRN Cough 01/10/23 01/10/23 History bupropion HCl 150 mg tablet,12 hr 150 mg PO BID mood 01/10/23 01/10/23 History s
--- NOTE | 2023-01-10 11:12 | CA_ITS ---
APPROVED REPORT EXAM: Comprehensive 2D, Doppler, and color-flow Echocardiogram Laborer General: Geraldine Bill RT(R) Ht: 5 ft 9 in Wt: 207lbs BSA: 2.10 BP: 162/108 mmHg Indications: Aflutter, CM, CAD, AICD, CHF, MV ring, hx CABG Procedure After obtaining informed consent, patient underwent transesophageal echo in the [facility]. Type of Sedation : MAC Sedation start time: 15:30 Case end Time: 15:55 Transesophageal probe was inserted and advanced into esophagus without difficulty by Dr. Cherelle Tarango. Synchronized Cardioversion acheived with 150 Joules after 1 attempt(s). Rhythm following Synchronized Cardioversion: Normal Sinus Rhythm Throughout the procedure, the blood pressure, pulse oximetry, cardiac rhythm, and rate were monitored. The patient tolerated the procedure without adverse effects. Recovery from conscious sedation was uneventful and vital signs were stable. Left Ventricle The left ventricle is normal size. Left ventricular systolic function is severely decreased. There is normal left ventricular wall thickness. Severe global hypokinesis is present. LVEF of 20%. Right Ventricle The right ventricle is normal size. Right ventricle is moderately hypokinetic. Atria The left atrium size is normal. There is no mass or thrombus suspected in the left atrium or the left atrial appendage. The right atrium size is normal. Interatrial septum is intact without evidence of ASD or PFO. Aortic Valve The aortic valve is mildly thickened. Aortic valve is trileaflet. There is no aortic valvular stenosis. No aortic regurgitation is present. Mitral Valve s/p MV annuloplasty ring. The ring appears well-seated. No evidence of mitral valve stenosis. Mean MV gradient is 2 mmHg (HR 119 bpm). Trace central mitral regurgitation. No evidence of paravalvular regurgitation. Tricuspid Valve The tricuspid valve leaflets are thin and pliable. mild to moderate tricuspid regurgitation. RVSP is 35 mmHg + RA pressure. Pulmonic Valve The pulmonary valve is normal in structure. Trace pulmonic regurgitation. Great Vessels The aortic root is normal in size. The ascending aorta is normal in size. There is calcification present in the descending aorta and the aortic root. Pericardium There is no pericardial effusion. Other Information Study Quality: Adequate Conclusion Severe reduction in global LV systolic function (LVEF 20%). Normal RV size with moderate reduction in RV systolic function. No evidence of LA or CHRISTOPHE thrombus. s/p MV annuloplasty ring. No significant MS or MR. The patient was initially in atrial flutter (HR 119 bpm). Once the LA and CHRISTOPHE where noted to be free of thrombus, he underwent DCCV with 1 attempt of 150 J, after which she converted to normal sinus rhythm. He was discharged from the [facility]BERTO suite in stable condition. Electronically signed by : Cherelle Tarango MD 01/11/2023 12:25:34
[2023-01-10 11:18] LABS: Basophils # 0.1 K/mm3 (0-0.2); Basophils % 0.6 % (0.1-2.0); Eosinophils # 0.2 K/mm3 (0.0-0.4); Eosinophils % 1.8 % (0.1-12.0); Hematocrit 39.1 % (42.0-52.0); Hemoglobin 12.2 g/dL (14.1-18.0); Lymphocytes # 1.9 K/mm3 (0.7-4.5); Lymphocytes % 20.7 % (10-50); Mean Corpuscular HGB Conc 31.1 g/dL (31.8-35.4); Mean Corpuscular Hemoglobin 30.3 pg (27.0-31.2); Mean Corpuscular Volume 97.3 fl (80-94); Mean Platelet Volume 8.6 fl (7.4-10.4); Monocytes # 0.6 K/mm3 (0.1-1.0); Monocytes % 6.6 % (1.7-9.3); Neutrophils # 6.5 K/mm3 (1.8-7.8); Neutrophils % 70.4 % (37.0-80.0); Platelet Count 332 K/mm3 (142-424); Red Blood Count 4.01 M/mm3 (4.60-6.20); Red Cell Distribution Width 15.1 % (11.5-17.5); White Blood Count 9.3 K/mm3 (4.8-10.8)
[2023-01-10 11:34] LABS: Chloride 100 mmol/L (98-107); Potassium 4.2 mmoL/L (3.5-5.1); Sodium 139 mmol/L (136-145)
[2023-01-10 11:36] LABS: Blood Urea Nitrogen 26 mg/dl (9-20); Creatinine Clearance Estimated 66 mL/min (50-200); Estimated Glomerular Filt Rate 44 ml/min (>60); GFR (African American) 54 ML/MIN (>60)
[2023-01-10 11:37] LABS: Alanine Aminotransferase 269 U/L (12-78); Albumin Level 4.5 g/dl (3.5-5.0); Albumin/Globulin Ratio 1.4 (1.1-1.8); Alkaline Phosphatase 165 U/L (38-126); Anion Gap 19.2 mEq/L (5-15); Aspartate Amino Transferase 98 U/L (17-59); Bilirubin,Total 1.1 mg/dl (0.2-1.3); Calcium 9.6 mg/dl (8.4-10.2); Carbon Dioxide 24 mmol/L (22.0-30.0); Globulin 3.3 g/dL (1.3-3.2); Glucose 118 mg/dl (74-100); Magnesium 2.1 mg/dl (1.6-2.3); Total Protein,Serum 7.8 g/dl (6.3-8.2)
[2023-01-10 11:48] LABS: Troponin I 0.05 ng/ml (0.00-0.034)
--- NOTE | 2023-01-10 12:01 | HMH.PHAINT1 ---
Pharmacy Intervention Comments: Med reconciliation completed using external fill history and patient interview. Mr Zayas states that he uses 32 units of glargine daily. The nitroglycerine and albuterol are old fill, but he states that he still has these available to him. He was started on Bumex 1 mg 1-2 daily PRN as directed on 12/23 and Lasix 40 mg daily PRN on 12/26. The family stated that he uses Lasix and not Bumex due to counselling from community pharmacist. Also, he had been on gabapentin, but has been out since last week.
[2023-01-10 12:03] LABS: Prothrombin Time 18.7 seconds (10.1-12.5)
[2023-01-10 12:07] LABS: Thyroid Stimulating Hormone 2.18 uIU/mL (0.465-4.68)
[2023-01-10 12:14] LABS: Hemoglobin A1C 6.6 % (4.0-6.0)
--- NOTE | 2023-01-10 13:06 | PC.NURSE ---
EKG obtained and given to Dr. Mccarthy
--- NOTE | 2023-01-10 14:02 | PC.NURSE ---
Dr. Mccarthy aware of pt's BP.
--- NOTE | 2023-01-10 14:56 | PC.NURSE ---
Pt going off the floor at this time for procedure.
--- NOTE | 2023-01-10 15:15 | P.PNANES_ITS ---
[facility] Disclaimer: The information contained in this section may have been updated after the patient was seen, as this information can be updated by other users. Medical History Arthritis Asthma Coronary artery disease Deviated nasal septum Diabetes Patient is taking metformin and is on insulin as well. HbA1c was 7.4 about 4 to 5 months ago. We will have him return to the clinic for a fasting lipid panel, and HbA1c as well as PSA and vitamin D levels. Diabetes mellitus, type 2 Dizziness Dyspnea GERD (gastroesophageal reflux disease) H/O blood clots History of heart attack History of stroke Hoarseness Hypertension Neuropathy Smoker Systolic heart failure Typical angina Surgical History History of heart artery stent Family History Other Cancer Coronary artery disease Diabetes Hypertension Kidney disease Stroke Social History (Updated 01/10/23 @ 11:12 by Shi Irving RN) Smoking Status: Current some day smoker tobacco type: cigarettes packs per day: 1 second hand exposure: Yes alcohol intake: never counseling provided: none substance use type: denies use current occupational status: other Travel in the last 8 weeks: None household members: family housing: house [facility] Anesthesia Checklist Patient Identification Patient Identification: Arm Band Structural Data Admitted From: Inpatient Planned Operative Procedure/s: ALBERTO with Cardioversion Consent for Planned Operative Procedure(s) Verified: Yes Verified Documents: Surgical Consent and History and Physical NPO Status Verified Time NPO: 07:00 Additional verifications Anesthesia Reactions: No Airway Assessment Mallampati Score:: Class II C-Spine Mobility Assessed: Yes TMJ Mobility Assessed: Yes Dentition: Edentulous Neurological Assessment Level of Consciousness: Awake and Alert Anesthesia Plan Anesthesia Risk discussed: Yes Anesthesia Plan: Verified ASA Class: IV Anesthesia Type: MAC
--- NOTE | 2023-01-10 16:43 | SUR.OPER ---
1535- 6mg of adenosine IVP administered to pt by RFeeback, GRIEVANCE COORDINATOR per MD Villarreal 1538- 12mg of adenosine IVP administered to pt by RFeeback, GRIEVANCE COORDINATOR per MD Villarreal 1539- time out performed 1539- procedure started 1550- pt shockked with 150j by MD Villarreal, pt in a paced rhythm at this time 1554- procedure ended at this time
--- NOTE | 2023-01-10 17:00 | PC.NURSE ---
1640-[facility] pharmacy called, no answer per turn machine operator 1647- spoke with Cayden, national facilities manager pharmacist regarding Amiodarone bolus and drip
--- NOTE | 2023-01-10 17:22 | PC.NURSE ---
1615 Report received from Samanta Sommers RN in PACU. Pt to come back and be started on Amiodarone drip, pt to receive Lovenox injection.
--- NOTE | 2023-01-10 17:37 | PC.NURSE ---
pt admitted this shift to stepdown. pt alert and oriented. ls cta. dry cough noted abdomen soft, nontender. bowel sounds active. pt did go down for ALBERTO/Cardioversion this shift. pt initially in aflutter converted to sinus rhythm-sinus tach during procedure. pt has left forearm IV- saline locked, right hand IV-saline locked, right forearm IV with Amiodarone infusing at 33.3 ml/hr. See MAR for start time on maintenance drip. pt did have a shower this shift. pt did receive Bumex this shift and had good output following medication. pt was ambulatory around room prior to procedure, pt now standby assistance d/t sedation. fall risk bracelet in place and sign on door. call light w/i reach and patient aware to call for help.
[2023-01-10 20:41] LABS: POC Glucose,Bedside 113 (70-110)
--- NOTE | 2023-01-10 23:15 | PC.NURSE ---
Amiodarone gtt changed form 1 mg/min (33.3 mL/hr) to 0.5 mg/min (16.7 mL/hr) per amiodarone protocol/order. VSS upon assessment.
[2023-01-11] VITALS (17 sets, daily range): BP systolic 115–137; BP diastolic 78–92; PULSE 65–80; RESP 16–24; TEMP 36.5–37.1; O2SAT 91–100; BMI 29.5
--- NOTE | 2023-01-11 05:42 | PC.NURSE ---
Pt AOx4 throughout shift, independent to position self in bed. 2 L NC placed due to desatting while sleeping, otherwise SpO2 99-100% on RA. Other VSS. Amiodarone gtt decreased from 1 mg/min to 0.5 mg/min per order, still infusing. Safety measures in place, call light within reach. No acute issues or events overnight.
[2023-01-11 06:29] LABS: POC Glucose,Bedside 86 (70-110)
--- NOTE | 2023-01-11 06:45 | ECG_ITS ---
APPROVED REPORT Exam: Resting ECG HR:74 bpm ECG Measurements Heart Rate 74 AXES ME 209 P 64 QRSd 128 QRS -57 QT 451 T 91 QTc 479 Conclusion SINUS RHYTHM LEFT ANTERIOR FASCICULAR BLOCK [QRS AXIS <= -45, QR IN I, RS IN II] ABNORMAL QRS-T ANGLE [QRS-T AXIS DIFFERENCE > 60] PROLONGED QT INTERVAL ABNORMAL ECG UNCONFIRMED REPORT Electronically signed by : Jarod Salter MD 01/11/2023 17:10:59
[2023-01-11 06:51] LABS: Basophils # 0.1 K/mm3 (0-0.2); Basophils % 0.4 % (0.1-2.0); Eosinophils % 0.3 % (0.1-12.0); Hematocrit 40.2 % (42.0-52.0); Hemoglobin 12.4 g/dL (14.1-18.0); Lymphocytes # 1.5 K/mm3 (0.7-4.5); Lymphocytes % 12.3 % (10-50); Mean Corpuscular HGB Conc 30.8 g/dL (31.8-35.4); Mean Corpuscular Hemoglobin 29.6 pg (27.0-31.2); Mean Corpuscular Volume 96.1 fl (80-94); Mean Platelet Volume 8.3 fl (7.4-10.4); Monocytes % 8.5 % (1.7-9.3); Neutrophils # 9.3 K/mm3 (1.8-7.8); Neutrophils % 78.5 % (37.0-80.0); Platelet Count 343 K/mm3 (142-424); Red Blood Count 4.18 M/mm3 (4.60-6.20); Red Cell Distribution Width 15.3 % (11.5-17.5); White Blood Count 11.9 K/mm3 (4.8-10.8)
[2023-01-11 07:02] LABS: INR 2.79 (0.9-1.1); Prothrombin Time 28.2 seconds (10.1-12.5)
[2023-01-11 07:05] LABS: Albumin Level 4.2 g/dl (3.5-5.0); Albumin/Globulin Ratio 1.3 (1.1-1.8); Alkaline Phosphatase 245 U/L (38-126); Bilirubin,Total 1.5 mg/dl (0.2-1.3); Blood Urea Nitrogen 30 mg/dl (9-20); Calcium 9.4 mg/dl (8.4-10.2); Carbon Dioxide 25 mmol/L (22.0-30.0); Chloride 100 mmol/L (98-107); Creatinine Clearance Estimated 68 mL/min (50-200); Estimated Glomerular Filt Rate 48 ml/min (>60); GFR (African American) 58 ML/MIN (>60); Globulin 3.2 g/dL (1.3-3.2); Glucose 91 mg/dl (74-100); Magnesium 2.1 mg/dl (1.6-2.3); Sodium 135 mmol/L (136-145); Total Protein,Serum 7.4 g/dl (6.3-8.2)
[2023-01-11 07:12] LABS: Alanine Aminotransferase 1271 U/L (12-78)
--- NOTE | 2023-01-11 07:57 | PC.NURSE ---
removed 2LNC to room air, oxygen saturation before removal was 100% and 99% after on room air
[2023-01-11 08:27] LABS: Aspartate Amino Transferase 1565 U/L (17-59)
--- NOTE | 2023-01-11 08:43 | EXP.CARD.PN ---
Subjective Subjective Date: 01/11/23 Time: 08:44 Principal diagnosis: A. flutter Interval history: 57-year-old white male sitting at bedside in no acute distress. Telemetry shows sinus rhythm in the 70s. Amiodarone IV is still running with plans for discontinuation around noon. Oral amiodarone has been started. LFTs markedly elevated overnight and likely related to cardioversion yesterday. He denies any nausea, vomiting or history of hepatitis. Exam Data for Last 24 hours Vital signs and Labs for Last 24 Hours: Temp Pulse Resp BP Pulse Ox O2 Del Method O2 Flow Rate 98.7 F 78 18 129/87 99 Room Air 2 01/11/23 07:34 01/11/23 06:00 01/11/23 06:00 01/11/23 06:00 01/11/23 07:57 01/11/23 07:57 01/11/23 07:55 Laboratory Results - last 24 hr 01/10/23 11:08: PT 18.7 H, INR 1.80 H, Sodium 139, Potassium 4.2, Chloride 100, Carbon Dioxide 24, Anion Gap 19.2 H, BUN 26 H D, Creatinine 1.60 H D, Estimated Creat Clear 66, Estimated GFR 44 L, Est GFR ( Amer) 54 L D, Glucose 118 H D, Hemoglobin A1c 6.6 H, Calcium 9.6, Magnesium 2.1, Total Bilirubin 1.1, AST 98 H, ALT 269 H, Alkaline Phosphatase 165 H, Troponin I 0.05 H, Total Protein 7.8, Albumin 4.5, Globulin 3.3 H, Albumin/Globulin Ratio 1.4, TSH 2.18 01/10/23 20:00: POC Glucose 113 H 01/10/23 : WBC 9.3, RBC 4.01 L, Hgb 12.2 L, Hct 39.1 L, MCV 97.3 H, MCH 30.3, MCHC 31.1 L, RDW 15.1, Plt Count 332, MPV 8.6, Neut % (Auto) 70.4, Lymph % (Auto) 20.7, [place] % (Auto) 6.6, Eos % (Auto) 1.8, Baso % (Auto) 0.6, Neut # (Auto) 6.5, Lymph # (Auto) 1.9, [place] # (Auto) 0.6, Eos # (Auto) 0.2, Baso # (Auto) 0.1 01/11/23 06:18: POC Glucose 86 01/11/23 06:25: WBC 11.9 H D, RBC 4.18 L, Hgb 12.4 L, Hct 40.2 L, MCV 96.1 H, MCH 29.6, MCHC 30.8 L, RDW 15.3, Plt Count 343, MPV 8.3, Neut % (Auto) 78.5, Lymph % (Auto) 12.3, [place] % (Auto) 8.5, Eos % (Auto) 0.3, Baso % (Auto) 0.4, Neut # (Auto) 9.3 H, Lymph # (Auto) 1.5, [place] # (Auto) 1.0, Eos # (Auto) 0.0, Baso # (Auto) 0.1, PT 28.2 H, INR 2.79 H, Sodium 135 L, Potassium 4.0, Chloride 100, Carbon Dioxide 25, Anion Gap 14.0, BUN 30 H, Creatinine 1.50 H, Estimated Creat Clear 68, Estimated GFR 48 L, Est GFR ( Amer) 58 L, Glucose 91 D, Calcium 9.4, Magnesium 2.1, Total Bilirubin 1.5 H, AST 1565 H* D, ALT 1271 H*, Alkaline Phosphatase 245 H, Total Protein 7.4, Albumin 4.2, Globulin 3.2, Albumin/Globulin Ratio 1.3 I & O for Last 24 hours: Intake & Output 01/08/23 01/09/23 01/10/23 01/11/23 11:59 11:59 11:59 11:59 Intake Total 994 / 994 Output Total 2750 / 2750 Balance -1756 / -1756 Weight 207 lb 7 oz 199 lb 0.18 oz Constitutional Constitutional: no acute distress *Routine Respiratory Exam Respiratory: Present CTA bilaterally *Routine Cardiovascular Exam Cardiovascular: Present RRR *Routine Extremities Exam Extremities: Absent edema *Routine Neurological Exam Neurological: Present alert, oriented X3 and CN II-XII intact Progress Note: A&P Assessment and plan (1) Atrial flutter: Status: Acute (2) NYHA class 3 heart failure with reduced ejection fraction: Problem details: All of Matthew cardiovascular issues are being followed by Dr. Jolly and his team at [facility]. Status: Acute (3) Abnormal electrocardiogram [ECG] [EKG]: Status: Acute (4) Chronic kidney disease, stage 3a: Status: Chronic (5) S/P CABG (coronary artery bypass graft): Status: Chronic (6) PAF (paroxysmal atrial fibrillation): Status: Chronic (7) CAD (coronary artery disease): Status: Chronic (8) GERD (gastroesophageal reflux disease): Status: Chronic (9) Tobacco dependence syndrome: Status: Chronic (10) HLD (hyperlipidemia): Problem details: He is to return to the clinic for a nurse visit either this week or next for a lab draw and a fasting lipid panel. Status: Chronic (11) HTN (hypertension): Status: Chronic (12) Diabetes: Status: Chronic Assessment
--- NOTE | 2023-01-11 09:30 | PC.NURSE ---
stopped amio drip per verbal order at bedside from Brandon Diogenes with cardiology
[2023-01-11 14:53] LABS: Alkaline Phosphatase 267 U/L (38-126); Bilirubin,Total 1.6 mg/dl (0.2-1.3); Blood Urea Nitrogen 33 mg/dl (9-20); Calcium 9.2 mg/dl (8.4-10.2); Carbon Dioxide 23 mmol/L (22.0-30.0); Chloride 98 mmol/L (98-107); Creatinine Clearance Estimated 63 mL/min (50-200); Estimated Glomerular Filt Rate 44 ml/min (>60); GFR (African American) 54 ML/MIN (>60); Glucose 141 mg/dl (74-100)
[2023-01-11 15:06] LABS: Alanine Aminotransferase 2034 U/L (12-78)
[2023-01-11 15:51] LABS: Albumin Level 3.9 g/dl (3.5-5.0); Albumin/Globulin Ratio 1.3 (1.1-1.8); Anion Gap 16.3 mEq/L (5-15); Globulin 3.1 g/dL (1.3-3.2); Potassium 4.3 mmoL/L (3.5-5.1); Sodium 133 mmol/L (136-145)
[2023-01-11 16:10] LABS: Aspartate Amino Transferase 3407 U/L (17-59)
[2023-01-11 16:14] LABS: POC Glucose,Bedside 146 (70-110)
[2023-01-11 16:14] LABS: POC Glucose,Bedside 109 (70-110)
--- NOTE | 2023-01-11 17:39 | EXP.ACUTE.PN ---
Subjective *Date: 01/11/23 *Time: 17:39 Interval history: Patient feeling better today. Diuresing. On room air. INR goal this morning at 2.79. LFTs elevated on morning labs. On room air. Because of bump in LFTs, amiodarone drip stopped. Cardiology evaluating today. Patient stating he feels better, requesting to go home. No nausea, vomiting, chest pain, shortness of breath, abdominal pain Medical Exam Vital signs and Labs for Last 24 Hours: Vital Signs Temp Pulse Pulse Resp BP BP Pulse Ox 01/11/23 17:00 01/11/23 16:00 70 01/11/23 16:00 98.0 F 65 18 131/89 98 01/11/23 12:00 70 01/11/23 15:00 01/11/23 08:00 80 01/11/23 13:00 01/11/23 11:48 98.0 F 71 18 126/84 97 01/11/23 11:00 01/11/23 09:00 01/11/23 10:00 70 16 137/90 93 L 01/11/23 09:00 98 01/11/23 08:00 77 16 115/78 91 L 01/11/23 07:57 99 01/11/23 07:55 100 01/11/23 07:34 98.7 F 01/11/23 06:51 01/11/23 06:00 78 18 129/87 97 01/11/23 05:00 01/11/23 04:08 80 01/11/23 04:00 100 01/11/23 04:00 98.0 F 75 16 124/87 100 01/11/23 03:00 01/11/23 02:00 78 24 128/83 96 01/11/23 01:00 01/11/23 00:08 80 01/11/23 00:19 73 16 135/83 96 01/10/23 23:15 75 16 138/80 100 01/10/23 23:00 01/10/23 22:19 77 18 139/92 H 98 01/10/23 21:19 78 16 134/85 94 L 01/10/23 21:00 01/10/23 20:00 70 01/10/23 20:15 76 16 137/86 97 01/10/23 19:45 96 01/10/23 19:45 98.6 F 75 24 136/88 136/88 97 01/10/23 19:19 75 18 131/87 98 01/10/23 18:45 01/10/23 18:45 76 18 114/75 96 01/10/23 18:15 97.9 F 78 18 109/68 L 97 01/10/23 17:45 81 16 131/72 98 O2 Del Method O2 Flow Rate 01/11/23 17:00 Room Air 01/11/23 16:00 01/11/23 16:00 Room Air 01/11/23 12:00 01/11/23 15:00 Room Air 01/11/23 08:00 01/11/23 13:00 Room Air 01/11/23 11:48 Room Air 01/11/23 11:00 Room Air 01/11/23 09:00 Room Air 01/11/23 10:00 Room Air 01/11/23 09:00 Room Air 01/11/23 08:00 Room Air 01/11/23 07:57 Room Air 01/11/23 07:55 Nasal Cannula 2 01/11/23 07:34 01/11/23 06:51 Nasal Cannula 2 01/11/23 06:00 Nasal Cannula 2 01/11/23 05:00 Nasal Cannula 2 01/11/23 04:08 01/11/23 04:00 Nasal Cannula 2 01/11/23 04:00 Nasal Cannula 2 01/11/23 03:00 Nasal Cannula 2 01/11/23 02:00 Nasal Cannula 2 01/11/23 01:00 Nasal Cannula 2 01/11/23 00:08 01/11/23 00:19 Nasal Cannula 2 01/10/23 23:15 Nasal Cannula 2 01/10/23 23:00 Nasal Cannula 2 01/10/23 22:19 Nasal Cannula 2 01/10/23 21:19 Room Air 01/10/23 21:00 Room Air 01/10/23 20:00 01/10/23 20:15 Room Air 01/10/23 19:45 Room Air 01/10/23 19:45 Room Air 01/10/23 19:19 Room Air 01/10/23 18:45 Room Air 01/10/23 18:45 Room Air 01/10/23 18:15 Room Air 01/10/23 17:45 Room Air Intake and Output 01/11/23 01/11/23 01/11/23 07:59 15:59 23:59 Intake Total 994 / 2294 650 / 2294 650 / 2294 Output Total 800 / 1000 200 / 1000 Balance 194 / 1294 450 / 1294 650 / 1294 Intake: Intake, Oral Amount 710 / 2009 650 / 2009 650 / 2009 Intake, Total IV Amount 284 / 284 Amiodarone HCl 900 mg In 284 / 284 Dextrose 5 % in Water 500 ml @ 33.3 mls/hr IV .[id number] [facility] Rx# :[id number] Output: Output, Urine Amount 800 / 1000 200 / 1000 Other: Weight 90.27 kg Patient Weight 01/11/23 23:59 Weight 90.27 kg Laboratory Results - last 24 hr 01/10/23 20:00: POC Glucose 113 H 01/11/23 06:18: POC Glucose 86 01/11/23 06:25: WBC 11.9 H D, RBC 4.18 L, Hgb 12.4 L, Hct 40.2 L, MCV 96.1 H, MCH 29.6, MCHC 30.8 L, RDW 15.3, Plt Count 343, MPV 8.3, Neut % (Auto) 78.5, Lymph % (Auto) 12.3, [place] % (Auto) 8.5, Eos % (Auto) 0.3, Baso % (Auto) 0.4, Neut # (Auto) 9.3 H, Ly
[2023-01-11 20:04] LABS: POC Glucose,Bedside 149 (70-110)
--- NOTE | 2023-01-11 21:08 | PC.NURSE ---
Julien Fuentes APRN states to continue with giving pt po dose of 400 mg amiodarone at scheduled time.
[2023-01-12] VITALS: BP 144/89; PULSE 60; PULSE 72; RESP 18; TEMP 36.9; O2SAT 94
[2023-01-12 04:00] VITALS: BP 136/91; PULSE 70; PULSE 71; RESP 16; TEMP 36.8; O2SAT 97; BMI 29.2
[2023-01-12 06:32] LABS: POC Glucose,Bedside 104 (70-110)
[2023-01-12 06:49] LABS: Basophils % 0.5 % (0.1-2.0); Eosinophils # 0.1 K/mm3 (0.0-0.4); Eosinophils % 0.8 % (0.1-12.0); Hematocrit 40.5 % (42.0-52.0); Hemoglobin 12.2 g/dL (14.1-18.0); Lymphocytes # 1.6 K/mm3 (0.7-4.5); Lymphocytes % 17.5 % (10-50); Mean Corpuscular HGB Conc 30.2 g/dL (31.8-35.4); Mean Corpuscular Hemoglobin 29.3 pg (27.0-31.2); Mean Corpuscular Volume 96.9 fl (80-94); Mean Platelet Volume 8.8 fl (7.4-10.4); Monocytes # 0.7 K/mm3 (0.1-1.0); Neutrophils # 6.6 K/mm3 (1.8-7.8); Neutrophils % 73.2 % (37.0-80.0); Platelet Count 286 K/mm3 (142-424); Red Blood Count 4.17 M/mm3 (4.60-6.20); Red Cell Distribution Width 15.4 % (11.5-17.5)
[2023-01-12 07:01] LABS: Albumin Level 3.8 g/dl (3.5-5.0); Albumin/Globulin Ratio 1.2 (1.1-1.8); Alkaline Phosphatase 277 U/L (38-126); Anion Gap 14.4 mEq/L (5-15); Bilirubin,Total 1.3 mg/dl (0.2-1.3); Blood Urea Nitrogen 36 mg/dl (9-20); Calcium 9.1 mg/dl (8.4-10.2); Carbon Dioxide 27 mmol/L (22.0-30.0); Chloride 98 mmol/L (98-107); Creatinine Clearance Estimated 63 mL/min (50-200); Estimated Glomerular Filt Rate 44 ml/min (>60); GFR (African American) 54 ML/MIN (>60); Globulin 3.2 g/dL (1.3-3.2); Glucose 102 mg/dl (74-100); INR 4.72 (0.9-1.1); Magnesium 2.1 mg/dl (1.6-2.3); Potassium 4.4 mmoL/L (3.5-5.1); Sodium 135 mmol/L (136-145)
[2023-01-12 07:06] LABS: Prothrombin Time 46.1 seconds (10.1-12.5)
[2023-01-12 07:07] LABS: Alanine Aminotransferase 1898 U/L (12-78)
[2023-01-12 07:23] LABS: Aspartate Amino Transferase 1757 U/L (17-59)
[2023-01-12 07:42] VITALS: BP 127/82; PULSE 71; RESP 20; TEMP 36.9; O2SAT 96
[2023-01-12 08:00] VITALS: PULSE 70; O2SAT 95
--- NOTE | 2023-01-12 08:38 | PC.NURSE ---
removed both 20G IV's right upper extremity per pt request, pt still has 18G Left forearm
--- NOTE | 2023-01-12 10:04 | EXP.DC.SUM ---
General Admission date:: 01/11/23 Discharge date: 01/12/23 HPI HPI HPI: 57-year-old male with history of CAD, CABG earlier this year, CHF who presents with weight gain and fatigue to cardiology clinic. Found to be in a flutter in the cardiology clinic on EKG. Given his decompensation, a flutter, shortness of breath, cardiology requested admission for diuresis and cardioversion. Medicine agreed to admit. Hospital Course Hospital Course Hospital Course: 57-year-old status post CABG x4 8 months ago who presented to cardiology clinic with a flutter and weight gain concerning for CHF exacerbation. Discussed case with cardiology, requested admission for diuresis and cardioversion. Medicine agreed to admit for further management. Patient cardioverted on 01/10. Has been in sinus rhythm since. Started on amiodarone, developed slight bump in problems addressed during hospitalization as follows: Acute on chronic heart failure with reduced ejection fraction Atrial flutter Paroxysmal atrial fibrillation -Patient was admitted for diuresis and cardioversion. Cardiology was consulted, taken for cardioversion on 01/10. Has maintained sinus rhythm. Started on amiodarone drip. Developed elevation of liver enzymes. Transition to oral amiodarone. Will continue 400 mg twice daily of amiodarone until follow-up with cardiology. Continued patient's warfarin. INR however has increased likely due to the addition of amiodarone to his regimen. INR on day of discharge is 4.7. Labs ordered with CMP and INR for the morning. Holding warfarin dose on day of discharge as well as on 01/13. Further management pending communication with Coumadin clinic. Patient otherwise stable for discharge home. Continue medications per med rec. Holding Lipitor in the setting of transaminitis. Liver enzymes have shown improvement and are down from 3700 AST to 1700 AST. ALT decreased from 2000 to 1800. Patient having no abdominal pain or right upper quadrant pain. Type 2 diabetes -Continued home regimen with basal insulin. A1c well-controlled at 6.6 on admission. Continued home Wellbutrin for mood Spent 30 minutes in discharge counseling, documentation, discussion with pharmacy, and direct care with patient. Exam Data for Last 24 hours Vital signs and Labs for Last 24 Hours: Temp Pulse Resp BP Pulse Ox O2 Del Method O2 Flow Rate 98.5 F 71 20 127/82 95 Room Air 2 01/12/23 07:42 01/12/23 07:42 01/12/23 07:42 01/12/23 07:42 01/12/23 08:00 01/12/23 08:42 01/11/23 07:55 Laboratory Results - last 24 hr 01/11/23 11:00: POC Glucose 109 01/11/23 14:21: Sodium 133 L, Potassium 4.3, Chloride 98, Carbon Dioxide 23, Anion Gap 16.3 H, BUN 33 H, Creatinine 1.60 H, Estimated Creat Clear 63, Estimated GFR 44 L, Est GFR ( Amer) 54 L, Glucose 141 H D, Calcium 9.2, Total Bilirubin 1.6 H, AST 3407 H* D, ALT 2034 H*, Alkaline Phosphatase 267 H, Total Protein 7.0, Albumin 3.9, Globulin 3.1, Albumin/Globulin Ratio 1.3 01/11/23 15:56: POC Glucose 146 H 01/11/23 19:56: POC Glucose 149 H 01/12/23 06:23: POC Glucose 104 01/12/23 06:38: WBC 9.0, RBC 4.17 L, Hgb 12.2 L, Hct 40.5 L, MCV 96.9 H, MCH 29.3, MCHC 30.2 L, RDW 15.4, Plt Count 286, MPV 8.8, Neut % (Auto) 73.2, Lymph % (Auto) 17.5, [place] % (Auto) 8.0, Eos % (Auto) 0.8, Baso % (Auto) 0.5, Neut # (Auto) 6.6, Lymph # (Auto) 1.6, [place] # (Auto) 0.7, Eos # (Auto) 0.1, Baso # (Auto) 0.0, PT 46.1 H, INR 4.72 H, Sodium 135 L, Potassium 4.4, Chloride 98, Carbon Dioxide 27, Anion Gap 14.4, BUN 36 H, Creatinine 1.60 H, Estimated Creat Clear 63, Estimated GFR 44 L, Est GFR ( Amer) 54 L, Glucose 102 H D, Calcium 9.1, Magnesium 2.1, Total Bilirubin 1.3, AST 1757 H* D, ALT 1898 H*, Alkaline Phosphatase 277 H, Total Protein 7.0, Albumin 3.8, Globulin 3.2, Albumin/Globulin Ratio 1.2 I & O for Last 24 hours: Intake & Output 01/09/23 01/10/23 01/11/23 01/12/23 23:59 23:59 23:59 23:59 Intake Total 2294 / 2294 480 / 480
--- NOTE | 2023-01-13 14:05 | CARE MANAGER ---
Spoke with patient related to hospital discharge. 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 We discussed to hold these until he goes to cardiology for the Atorvastatin and until he talks to the pharmacist about his PT/INR for his Coumadin. He states he will have his quill picking machine operator his Amiodarone today. Pharmacist is also going to follow up with him today as well.
== END 2023-01-12 11:07 | disposition home or self-care (01) | DRG 291 ==
PROVIDERS: Internal Medicine; Admitting Provider Internal Medicine Adolescent Medicine; PCP Internal Medicine; Visit Provider Internal Medicine Adolescent Medicine
DX: I50.23 Acute on chronic systolic (congestive) heart failure (principal); I48.92 Unspecified atrial flutter; N18.31 Chronic kidney disease, stage 3a; Z95.1 Presence of aortocoronary bypass graft; I48.0 Paroxysmal atrial fibrillation; I25.10 Atherosclerotic heart disease of native coronary artery without angina pectoris; K21.9 Gastro-esophageal reflux disease without esophagitis; E78.2 Mixed hyperlipidemia; E11.69 Type 2 diabetes mellitus with other specified complication; M19.90 Unspecified osteoarthritis, unspecified site; E11.610 Type 2 diabetes mellitus with diabetic neuropathic arthropathy; I13.0 Hypertensive heart and chronic kidney disease with heart failure and stage 1 through stage 4 chronic kidney disease, or unspecified chronic kidney disease; I25.2 Old myocardial infarction; D63.1 Anemia in chronic kidney disease; Z79.01 Long term (current) use of anticoagulants; Z79.4 Long term (current) use of insulin
CPT/HCPCS: 36415; 80053; 82962; 83036; 83735; 84443; 84484; 85025; 85610; 92960; 93005; 93270; 93312; 93319; J0282; J7060

== ENCOUNTER → 2023-01-13 09:13 | Outpatient (CLI) | payer BC, MEDICARE, SELFPAY ==
[2023-01-13 09:32] LABS: Basophils % 0.4 % (0.1-2.0); Eosinophils # 0.1 K/mm3 (0.0-0.4); Eosinophils % 1.3 % (0.1-12.0); Hematocrit 38.5 % (42.0-52.0); Lymphocytes # 1.5 K/mm3 (0.7-4.5); Lymphocytes % 15.4 % (10-50); Mean Corpuscular HGB Conc 31.1 g/dL (31.8-35.4); Mean Corpuscular Hemoglobin 29.7 pg (27.0-31.2); Mean Corpuscular Volume 95.3 fl (80-94); Monocytes # 0.8 K/mm3 (0.1-1.0); Monocytes % 8.3 % (1.7-9.3); Neutrophils # 7.4 K/mm3 (1.8-7.8); Neutrophils % 74.7 % (37.0-80.0); Platelet Count 210 K/mm3 (142-424); Red Blood Count 4.04 M/mm3 (4.60-6.20); Red Cell Distribution Width 15.5 % (11.5-17.5)
[2023-01-13 10:01] LABS: INR 6.05 (0.9-1.1); Prothrombin Time 58.1 seconds (10.1-12.5)
[2023-01-13 10:11] LABS: Albumin Level 3.7 g/dl (3.5-5.0); Albumin/Globulin Ratio 1.3 (1.1-1.8); Alkaline Phosphatase 268 U/L (38-126); Aspartate Amino Transferase 617 U/L (17-59); Bilirubin,Total 0.9 mg/dl (0.2-1.3); Blood Urea Nitrogen 43 mg/dl (9-20); Calcium 8.8 mg/dl (8.4-10.2); Carbon Dioxide 21 mmol/L (22.0-30.0); Chloride 101 mmol/L (98-107); Estimated Glomerular Filt Rate 39 ml/min (>60); GFR (African American) 47 ML/MIN (>60); Globulin 2.9 g/dL (1.3-3.2); Glucose 130 mg/dl (74-100); Sodium 134 mmol/L (136-145); Total Protein,Serum 6.6 g/dl (6.3-8.2)
[2023-01-13 10:28] LABS: Alanine Aminotransferase 1274 U/L (12-78)
== END | disposition home or self-care (01) ==
PROVIDERS: PCP Internal Medicine; Visit Provider Internal Medicine Adolescent Medicine
DX: I48.92 Unspecified atrial flutter (principal); D64.9 Anemia, unspecified; R74.01 Elevation of levels of liver transaminase levels; I48.0 Paroxysmal atrial fibrillation; Z51.81 Encounter for therapeutic drug level monitoring; Z79.01 Long term (current) use of anticoagulants
CPT/HCPCS: 36415; 80053; 85025; 85610

== ENCOUNTER → 2023-01-16 15:43 | Outpatient (CLI) | payer BC, MEDICARE, SELFPAY ==
[2023-01-16 17:00] LABS: INR 3.29 (0.9-1.1); Prothrombin Time 32.9 seconds (10.1-12.5)
[2023-01-16 17:02] LABS: Alanine Aminotransferase 633 U/L (12-78); Alkaline Phosphatase 171 U/L (38-126); Aspartate Amino Transferase 153 U/L (17-59); Bilirubin,Total 0.7 mg/dl (0.2-1.3); Blood Urea Nitrogen 32 mg/dl (9-20); Calcium 8.5 mg/dl (8.4-10.2); Carbon Dioxide 23 mmol/L (22.0-30.0); Chloride 103 mmol/L (98-107); Estimated Glomerular Filt Rate 29 ml/min (>60); GFR (African American) 35 ML/MIN (>60); Glucose 135 mg/dl (74-100)
[2023-01-16 17:32] LABS: Albumin Level 3.6 g/dl (3.5-5.0); Albumin/Globulin Ratio 1.3 (1.1-1.8); Anion Gap 15.4 mEq/L (5-15); Globulin 2.8 g/dL (1.3-3.2); Potassium 4.4 mmoL/L (3.5-5.1); Sodium 137 mmol/L (136-145); Total Protein,Serum 6.4 g/dl (6.3-8.2)
== END ==
PROVIDERS: PCP Internal Medicine; Visit Provider Internal Medicine Adolescent Medicine
DX: R74.01 Elevation of levels of liver transaminase levels (principal); I48.0 Paroxysmal atrial fibrillation
CPT/HCPCS: 36415; 80053; 85610

== ENCOUNTER → 2023-01-19 14:24 | Outpatient (CLI) | payer BC, MEDICARE, SELFPAY ==
[2023-01-19 15:39] LABS: Anion Gap 14.2 mEq/L (5-15); Blood Urea Nitrogen 33 mg/dl (9-20); Calcium 8.5 mg/dl (8.4-10.2); Carbon Dioxide 24 mmol/L (22.0-30.0); Chloride 104 mmol/L (98-107); Estimated Glomerular Filt Rate 44 ml/min (>60); GFR (African American) 54 ML/MIN (>60); Glucose 123 mg/dl (74-100); Potassium 4.2 mmoL/L (3.5-5.1); Sodium 138 mmol/L (136-145)
== END ==
PROVIDERS: PCP Internal Medicine; Visit Provider Internal Medicine
DX: I50.20 Unspecified systolic (congestive) heart failure (principal); N18.31 Chronic kidney disease, stage 3a
CPT/HCPCS: 36415; 80048

== ENCOUNTER 2023-01-20 09:54 | Outpatient (CLI) | payer BC, MEDICARE, SELFPAY ==
[2023-01-20 13:55] LABS: PHA INR Fingerstick 2.9 (0.9-1.1)
== END 2023-01-20 13:57 ==
PROVIDERS: PCP Internal Medicine; Visit Provider Physician Assistant
DX: Z51.81 Encounter for therapeutic drug level monitoring (principal); Z79.01 Long term (current) use of anticoagulants; I48.0 Paroxysmal atrial fibrillation
CPT/HCPCS: 85610; 99211; G0463

== ENCOUNTER 2023-01-24 04:44 | Inpatient (IN) | payer BC, MEDICARE, SELFPAY ==
[2023-01-24] VITALS (11 sets, daily range): BP systolic 135–150; BP diastolic 60–87; PULSE 60–74; RESP 16–22; TEMP 36.5–36.7; O2SAT 95–100; BMI 35.4; BMI 39.9; BMI 34.5; BMI 34.8
--- NOTE | 2023-01-24 04:55 | ECG_ITS ---
APPROVED REPORT Exam: Resting ECG HR:60 bpm ECG Measurements Heart Rate [address] 289 P -63 QRSd 137 QRS 153 QT 461 T -4 QTc 461 Conclusion ELECTRONIC ATRIAL PACEMAKER INTRAVENTRICULAR CONDUCTION DELAY [130+ ms QRS DURATION] POSSIBLE RIGHT VENTRICULAR HYPERTROPHY [SOME/ALL OF: PROMINENT R IN V1, LATE TRANSITION, RAD, HUSAM, SSS] POSSIBLE ANTERIOR MYOCARDIAL INFARCTION , PROBABLY OLD [30 ms Q WAVE IN V3/V4, OR R < 0.2 mV IN V4] ABNORMAL ECG UNCONFIRMED REPORT Electronically signed by : Jarod Salter MD 01/24/2023 10:17:44
--- NOTE | 2023-01-24 05:00 | XR_ITS ---
PROCEDURE INFORMATION: Exam: XR Chest Exam date and time: 01/24/2023 4:59 AM Age: 57 years old Clinical indication: Shortness of breath; Prior surgery; Surgery date: 6+ months; Surgery type: Defibrillator; Additional info: Shortness of air TECHNIQUE: Imaging protocol: Radiologic exam of the chest. Views: 1 view. COMPARISON: CR XR CHEST 2V 01/02/2023 11:19 AM FINDINGS: Lungs: Unremarkable. No consolidation. Pleural spaces: Unremarkable. No pleural effusion. No pneumothorax. Heart/Mediastinum: Cardiomegaly. Two lead right heart pacemaker. Bones/joints: Prior median sternotomy. No significant interval change. IMPRESSION: Cardiomegaly. Two lead right heart pacemaker. Prior median sternotomy. No significant interval change.
--- NOTE | 2023-01-24 05:01 | HMH.EDGENADL ---
Discharge Plan Disposition Patient Disposition: Admitted Condition: Serious Prescriptions Prescriptions: No Action mecobalamin (vitamin B12) 1,000 mcg tablet,chewable 1,000 mcg PO DAILY 30 Days Qty: 30 4RF nitroglycerin 0.4 mg tablet, sublingual 0.4 mg sublingual Q5M PRN (Reason: chest pain) Qty: 25 0RF Rx Instructions: do not exceed 3 doses per episode clopidogrel 75 mg tablet 75 mg PO DAILY Qty: 90 3RF Jardiance 10 mg tablet 10 mg PO DAILY Qty: 90 3RF tramadol 50 mg tablet 50 mg PO Q8H PRN (Reason: pain) Qty: 30 0RF torsemide 20 mg tablet 20 mg PO DAILY Qty: 90 3RF metformin 1,000 mg tablet 1,000 mg PO BID Qty: 60 2RF Hold Instructions: Resume on 10/21/22. (DME) Blood Glucose Test Strip See Rx Instructions .Route Qty: 100 2RF Rx Instructions: Check sugar twice daily or As directed omeprazole 40 mg capsule,delayed release(DR/EC) 40 mg PO DAILY Trulicity 1.5 mg/0.5 mL pen injector 1.5 mg SQ WEEKLY methocarbamol 500 mg tablet 500 mg PO TIDP PRN (Reason: Muscle Spasms) albuterol sulfate 90 mcg/actuation HFA aerosol inhaler 2 puff inhalation QIDP PRN (Reason: shortness of breath or wheezing) fluticasone propionate 50 mcg/actuation [place],Suspension 1 spray INTRANASAL DAILY Rx Instructions: administer into each nostril spironolactone 25 mg tablet 25 mg PO DAILY bisoprolol fumarate 5 mg tablet 5 mg PO DAILY warfarin 5 mg tablet 2.5 mg PO DAILY Hold Instructions: pending improvement in INR and discussion with coumadin clinic/Shaun Aceves 97-103 mg tablet 1 tab PO BID bupropion HCl 150 mg tablet sustained-release 12 hr 150 mg PO BID Patient Comments: Take 1 tablet by mouth twice daily insulin glargine [Lantus Solostar U-100 Insulin] 100 unit/mL (3 mL) insulin pen 32 unit SQ HS amiodarone 200 mg Tablet 400 mg PO BID 30 Days Qty: 120 0RF Referrals Follow up/Referrals: Mal Barfield DO [Primary Care Provider] - See instructions Clinical Impressions Clinical Impression: Heart failure with reduced ejection fraction, Acute exacerbation of CHF (congestive heart failure) Discharge ED Provider: Tawana Whitfield General Adult HPI General Chief complaint: Shortness of Breath/Dyspnea Stated complaint: SOA, swelling in legs and stomach Time Seen by Provider: 01/24/23 05:00 History of Present Illness HPI narrative: Patient is a 57-year-old status post CKD, CAD s/p CABG x4 8 months ago on warfarin, PAF, CHF, HTN, HLD, DM who presents to the ED with complaints of SOB. Patient was just discharged from the hospital on day after being admitted for CHF exacerbation requiring aggressive diuresis and Aflutter s/p cardioversion on 01/10. While being admitted, patient also had transaminitis, possibly from statins, but liver enzymes have shown improvement and are down from 3700 AST to 1700 AST. ALT decreased from 2000 to 1800. Patient notes that over the past two weeks, patient has been having progressively worsening SOB and exertional fatigue. Patient has had worsening BLE edema and abdominal swelling that has also caused decreased appetite. Patient notes that after being discharged, his diuretics were working well but now have not been working well and his UOP has significantly decreased. Patient notes 30lb weight gain in 2 weeks. Patient denies chest pain, syncope, palpitations. Related Data Home Medications Medication Instructions Recorded Confirmed omeprazole 40 mg capsule,delayed 40 mg PO DAILY Acid reflux 03/21/22 01/24/23 release dulaglutide 1.5 mg/0.5 mL 1.5 mg SQ WEEKLY Diabetes 06/04/22 01/24/23 subcutaneous [facility] albuterol sulfate 90 mcg/actuation 2 puff inhalation QIDP PRN 06/05/22 01/24/23 aerosol inhaler shortness of breath or wheezing methocarbamol 500 mg tablet 500 mg PO TIDP PRN Muscle Spasms 06/05/22 01/24/23 fluticasone propionat
[2023-01-24 05:02] LABS: POC Glucose,Bedside 167 (70-110)
[2023-01-24 05:06] LABS: Basophils % 0.3 % (0.1-2.0); Eosinophils # 0.2 K/mm3 (0.0-0.4); Eosinophils % 2.8 % (0.1-12.0); Hematocrit 39.1 % (42.0-52.0); Hemoglobin 11.8 g/dL (14.1-18.0); Lymphocytes # 1.7 K/mm3 (0.7-4.5); Lymphocytes % 20.2 % (10-50); Mean Corpuscular HGB Conc 30.1 g/dL (31.8-35.4); Mean Corpuscular Hemoglobin 29.1 pg (27.0-31.2); Mean Corpuscular Volume 96.8 fl (80-94); Mean Platelet Volume 8.5 fl (7.4-10.4); Monocytes # 0.6 K/mm3 (0.1-1.0); Monocytes % 6.9 % (1.7-9.3); Neutrophils # 5.8 K/mm3 (1.8-7.8); Neutrophils % 69.7 % (37.0-80.0); Platelet Count 354 K/mm3 (142-424); Red Blood Count 4.04 M/mm3 (4.60-6.20); Red Cell Distribution Width 15.5 % (11.5-17.5); White Blood Count 8.3 K/mm3 (4.8-10.8)
[2023-01-24 05:08] LABS: Chloride 103 mmol/L (98-107); Potassium 5.2 mmoL/L (3.5-5.1); Sodium 139 mmol/L (136-145)
[2023-01-24 05:10] LABS: Blood Urea Nitrogen 29 mg/dl (9-20); Estimated Glomerular Filt Rate 32 ml/min (>60); GFR (African American) 39 ML/MIN (>60)
[2023-01-24 05:11] LABS: Alanine Aminotransferase 118 U/L (12-78); Albumin/Globulin Ratio 1.3 (1.1-1.8); Alkaline Phosphatase 128 U/L (38-126); Anion Gap 16.2 mEq/L (5-15); Aspartate Amino Transferase 36 U/L (17-59); Bilirubin,Total 0.6 mg/dl (0.2-1.3); Calcium 9.4 mg/dl (8.4-10.2); Carbon Dioxide 25 mmol/L (22.0-30.0); Globulin 3.1 g/dL (1.3-3.2); Glucose 131 mg/dl (74-100); Total Protein,Serum 7.1 g/dl (6.3-8.2)
[2023-01-24 05:13] LABS: VBG Base Excess -3.7 mmol/L (-2.4-2.3); VBG HCO3 22.8 mmol/L (23-30); VBG Oxygen Saturation 59.4 % (50-70); VBG PCO2 48.6 mmol/L (35-51); VBG PH 7.29 mmol/L (7.31-7.41); VBG PO2 34.9 mmol/L (28-40); VBG Total CO2 24.3 mmol/L (23-27)
[2023-01-24 05:13] LABS: Prothrombin Time 27.3 seconds (10.1-12.5)
[2023-01-24 05:14] LABS: Creatinine Clearance Estimated 57 mL/min (50-200)
[2023-01-24 05:21] LABS: NT Pro Brain Natriuretic Pep. 10400 pg/mL (0-125)
[2023-01-24 05:23] LABS: Troponin I 0.03 ng/ml (0.00-0.034)
--- NOTE | 2023-01-24 05:34 | PC.NURSE ---
unable to reach hospitalist by [phone]. contacted charge on floor who advises he is up there and she will him call the ER. Spoke with Hellen.
--- NOTE | 2023-01-24 05:51 | PC.NURSE ---
received return call from hospitalist at this time. discussing case. accepted per Scott
--- NOTE | 2023-01-24 05:57 | PC.NURSE ---
notified house of admit; dx: acute chf exac. to the hospitalist
--- NOTE | 2023-01-24 06:27 | PC.NURSE ---
pt arrived to floor via wheelchair @0620
[2023-01-24 06:50] LABS: POC Glucose,Bedside 125 (70-110)
--- NOTE | 2023-01-24 06:57 | PC.NURSE ---
pt arrived to floor via wheelchair @0620
--- NOTE | 2023-01-24 07:13 | EXP.HP ---
History of Present Illness *Admission Date: 01/24/23 *Reason for visit:: dyspnea *History of present illness: Mr. Zayas is a 57-year-old male well-known to our service who has a past medical history of CKD, CAD status post CABG x 4 8 months ago, chronic anticoagulation on warfarin, paroxysmal A-fib, CHF, hypertension, hyperlipidemia, diabetes. He presented to the ER last night due to shortness of breath and increased swelling in his legs. States has been having some increased shortness of breath since last admission when he was admitted for cardioversion on 01/10. Patient was having a flutter and underwent significant aggressive diuresis for CHF exacerbation at that time. Has seen cardiology as an outpatient. Workup in the ER showed elevation in BNP to 10,000, slight EMMA with creatinine of 2.1, potassium of 5.2, and swelling of the legs on exam. Patient noted to have new require of 2 L. Weight over the past several weeks is up about 20 kg. Reports he has been taking his home medications including spironolactone and torsemide. He denies any chest pain, nausea, vomiting, syncope, palpitations. States his urine output has not been as good as previous. Feels more fatigue with exertion. ER consulted medicine for admission. After arrival to the floor, patient noted to have significant lower extremity edema. More distressed than last exam at previous visit. Cardiology consulted. Patient's at bedside, she helps facilitate his medications. States he has been compliant with his medications since last discharge [facility] Disclaimer: The information contained in this section may have been updated after the patient was seen, as this information can be updated by other users. Medical History Arthritis Asthma Coronary artery disease Deviated nasal septum Diabetes Diabetes mellitus, type 2 Dizziness Dyspnea GERD (gastroesophageal reflux disease) H/O blood clots History of heart attack History of stroke Hoarseness Hypertension Neuropathy Smoker Systolic heart failure Typical angina Surgical History History of heart artery stent S/P CABG x 4 Family History Diabetes Coronary artery disease Kidney disease Cancer Hypertension Stroke Social History Smoking Status: Current every day smoker tobacco type: cigarettes packs per day: 1 second hand exposure: Yes alcohol intake: never counseling provided: none substance use type: denies use current occupational status: other Travel in the last 8 weeks: None household members: family housing: house Review of Systems Review of Systems Review of systems (narrative): 14 point review of systems performed, pertinent positives and negatives as per HPI Meds Home Medications and Allergies Home Medications Medication Instructions Recorded Confirmed Type omeprazole 40 mg capsule,delayed 40 mg PO DAILY Acid reflux 03/21/22 01/24/23 History release nitroglycerin 0.4 mg sublingual 0.4 mg sublingual Q5M PRN chest 03/28/22 01/24/23 Rx tablet pain #25 tabs dulaglutide 1.5 mg/0.5 mL 1.5 mg SQ WEEKLY Diabetes 06/04/22 01/24/23 History subcutaneous pen injector (Trulicity) albuterol sulfate 90 mcg/actuation 2 puff inhalation QIDP PRN 06/05/22 01/24/23 History aerosol inhaler shortness of breath or wheezing methocarbamol 500 mg tablet 500 mg PO TIDP PRN Muscle Spasms 06/05/22 01/24/23 History fluticasone propionate 50 1 spray intranasal DAILY allergies 06/07/22 01/24/23 History mcg/actuation nasal spray,suspension clopidogrel 75 mg tablet 75 mg PO DAILY platelet inhibitor 06/16/22 01/24/23 Rx #90 tabs bisoprolol fumarate 5 mg tablet 5 mg PO DAILY heart rate 06/17/22 01/24/23 History spironolactone 25 mg tablet 25 mg PO DAILY High blood pressure 0
--- NOTE | 2023-01-24 08:06 | HMH.PHAINT1 ---
Pharmacy Intervention Comments: Med reconciliation completed using external fill history and list from 01/19 office visit
[2023-01-24 08:45] LABS: Basophils % 0.4 % (0.1-2.0); Eosinophils # 0.1 K/mm3 (0.0-0.4); Eosinophils % 1.9 % (0.1-12.0); Hemoglobin 11.4 g/dL (14.1-18.0); Lymphocytes # 0.9 K/mm3 (0.7-4.5); Lymphocytes % 12.7 % (10-50); Mean Corpuscular HGB Conc 31.7 g/dL (31.8-35.4); Mean Corpuscular Hemoglobin 29.9 pg (27.0-31.2); Mean Corpuscular Volume 94.5 fl (80-94); Mean Platelet Volume 8.6 fl (7.4-10.4); Monocytes # 0.5 K/mm3 (0.1-1.0); Neutrophils # 5.8 K/mm3 (1.8-7.8); Platelet Count 340 K/mm3 (142-424); Red Blood Count 3.81 M/mm3 (4.60-6.20); Red Cell Distribution Width 15.5 % (11.5-17.5); White Blood Count 7.4 K/mm3 (4.8-10.8)
[2023-01-24 08:58] LABS: Chloride 102 mmol/L (98-107); Potassium 5.6 mmoL/L (3.5-5.1); Sodium 136 mmol/L (136-145)
[2023-01-24 09:01] LABS: Alanine Aminotransferase 112 U/L (12-78); Albumin Level 3.9 g/dl (3.5-5.0); Albumin/Globulin Ratio 1.3 (1.1-1.8); Alkaline Phosphatase 128 U/L (38-126); Anion Gap 13.6 mEq/L (5-15); Aspartate Amino Transferase 39 U/L (17-59); Bilirubin,Total 0.6 mg/dl (0.2-1.3); Blood Urea Nitrogen 32 mg/dl (9-20); Calcium 9.2 mg/dl (8.4-10.2); Carbon Dioxide 26 mmol/L (22.0-30.0); Creatinine Clearance Estimated 60 mL/min (50-200); Estimated Glomerular Filt Rate 34 ml/min (>60); GFR (African American) 42 ML/MIN (>60); Globulin 2.9 g/dL (1.3-3.2); Glucose 170 mg/dl (74-100); Total Protein,Serum 6.8 g/dl (6.3-8.2)
[2023-01-24 09:12] LABS: Troponin I 0.03 ng/ml (0.00-0.034)
[2023-01-24 10:09] LABS: Coronavirus 19, PCR Not Detected (NotDetected); Influenza A, PCR Not Detected (NotDetected); Influenza B, PCR Not Detected (NotDetected)
[2023-01-24 11:45] LABS: POC Glucose,Bedside 133 (70-110)
[2023-01-24 12:07] LABS: Troponin I 0.02 ng/ml (0.00-0.034)
--- NOTE | 2023-01-24 13:35 | EXP.CARD.CON ---
History of Present Illness History of Present Illness Consult date: 01/24/23 Requesting physician: Matthew Mccarthy Consult reason: shortness of breath Chief complaint: Acute on chronic heart failure exacerbation History of present illness: 57-year-old white male with past medical history of coronary artery disease status post four-vessel CABG April 2022, paroxysmal A-fib status post left atrial appendage clipping April 2022, mitral valve repair using annuloplasty ring April 2022, on Coumadin for possible LV thrombus 2022 and heart failure with reduced ejection fraction status post AICD placement 10/09/2022 presented to hospital yesterday with complaints of increased shortness of breath and lower extremity edema since getting out of hospital on . Patient was previously admitted to hospital for A-fib RVR and underwent ALBERTO cardioversion which converted patient to normal sinus rhythm. Patient at that time also was admitted for volume overload and was diuresed and sent home. Patient followed-up in cardiology clinic on 01/19/2023 and was started on torsemide 20 mg once daily. Reports since then has been taking all heart failure medications but has noticed progressive and worsening weight gain, shortness of air and lower extremity edema. Reports has noticed a decrease in urine output on the torsemide 20 mg daily. Patient denies any chest pain. Initial EKG shows an electronic atrial pacemaker, rate 60 without acute ischemic changes noted. Chest x-ray showed cardiomegaly with no significant interval change. Labs as follow: Sodium 139, potassium 5.2, creatinine 2.10, AST 36, ALT 118, alk phos 128 troponin 0.03and a proBNP of 10,400. Patient was given Bumex 2 mg IV and admitted for volume overload and cardiology evaluation. Patient had 400 mL output after the initial Bumex 2 mg IV was given. Afterwards patient was started on Bumex drip. [facility] Disclaimer: The information contained in this section may have been updated after the patient was seen, as this information can be updated by other users. Medical History Arthritis Asthma Coronary artery disease Deviated nasal septum Diabetes Diabetes mellitus, type 2 Dizziness Dyspnea GERD (gastroesophageal reflux disease) H/O blood clots History of heart attack History of stroke Hoarseness Hypertension Neuropathy Smoker Systolic heart failure Typical angina Surgical History History of heart artery stent S/P CABG x 4 Family History Diabetes Coronary artery disease Kidney disease Cancer Hypertension Stroke Social History Smoking Status: Current every day smoker tobacco type: cigarettes packs per day: 1 second hand exposure: Yes alcohol intake: never counseling provided: none substance use type: denies use current occupational status: other Travel in the last 8 weeks: None household members: family housing: house Review of Systems Review of Systems Review of systems:: pertinent systems reviewed and negative unless documented below *Cardiovascular Cardiovascular: Reports dyspnea Comments: Lower extremity edema *Respiratory Respiratory: Reports cough and Reports dyspnea Exam Data for Last 24 hours Vital signs and Labs for Last 24 Hours: Temp Pulse Resp BP Pulse Ox O2 Del Method O2 Flow Rate 98.1 F 74 17 150/87 H 99 Room Air 2 01/24/23 11:51 01/24/23 11:51 01/24/23 11:51 01/24/23 11:51 01/24/23 11:51 01/24/23 13:00 01/24/23 11:51 Laboratory Results - last 24 hr 01/24/23 04:54: WBC 8.3, RBC 4.04 L, Hgb 11.8 L, Hct 39.1 L, MCV 96.8 H, MCH 29.1, MCHC 30.1 L, RDW 15.5, Plt Count 354, MPV 8.5, Neut % (Auto) 69.7, Lymph % (Auto) 20.2, [place] % (Auto) 6.9, Eos % (Auto) 2.8, Baso % (Auto) 0.3, Neut # (Auto) 5.8, Lymph # (Auto) 1.7, [place]alfa #
[2023-01-24 13:53] LABS: Chloride 101 mmol/L (98-107); Potassium 5.1 mmoL/L (3.5-5.1); Sodium 137 mmol/L (136-145)
[2023-01-24 13:55] LABS: Blood Urea Nitrogen 32 mg/dl (9-20); Creatinine Clearance Estimated 57 mL/min (50-200); Estimated Glomerular Filt Rate 32 ml/min (>60); GFR (African American) 39 ML/MIN (>60)
[2023-01-24 13:56] LABS: Anion Gap 13.1 mEq/L (5-15); Calcium 9.7 mg/dl (8.4-10.2); Carbon Dioxide 28 mmol/L (22.0-30.0); Glucose 123 mg/dl (74-100)
--- NOTE | 2023-01-24 16:00 | PC.NURSE ---
Pt on 2L NC prn for soa. He states he feels much better. Has voided 3250 ml this shift. C/O itching to skin. No other complaints stated. VS are currently stable. FSBS 139 this afternoon. Bumex gtt to stop @ 1800 per Ne Michaud.
[2023-01-24 16:31] LABS: POC Glucose,Bedside 139 (70-110)
[2023-01-24 20:22] LABS: POC Glucose,Bedside 138 (70-110)
[2023-01-25] VITALS (9 sets, daily range): BP systolic 127–146; BP diastolic 73–90; PULSE 56–60; RESP 16–18; TEMP 36.4–36.9; O2SAT 95–99; BMI 34.8
[2023-01-25 05:44] LABS: POC Glucose,Bedside 123 (70-110)
[2023-01-25 06:23] LABS: Basophils % 0.6 % (0.1-2.0); Eosinophils # 0.2 K/mm3 (0.0-0.4); Eosinophils % 3.3 % (0.1-12.0); Hemoglobin 11.1 g/dL (14.1-18.0); Lymphocytes # 1.2 K/mm3 (0.7-4.5); Lymphocytes % 17.8 % (10-50); Mean Corpuscular HGB Conc 30.8 g/dL (31.8-35.4); Mean Corpuscular Hemoglobin 28.7 pg (27.0-31.2); Mean Corpuscular Volume 93.4 fl (80-94); Mean Platelet Volume 8.3 fl (7.4-10.4); Monocytes # 0.5 K/mm3 (0.1-1.0); Monocytes % 6.9 % (1.7-9.3); Neutrophils % 71.3 % (37.0-80.0); Platelet Count 298 K/mm3 (142-424); Red Blood Count 3.86 M/mm3 (4.60-6.20); Red Cell Distribution Width 15.7 % (11.5-17.5)
[2023-01-25 06:42] LABS: Chloride 98 mmol/L (98-107); Potassium 4.9 mmoL/L (3.5-5.1); Sodium 137 mmol/L (136-145)
[2023-01-25 06:44] LABS: Blood Urea Nitrogen 36 mg/dl (9-20); Creatinine Clearance Estimated 57 mL/min (50-200); Estimated Glomerular Filt Rate 32 ml/min (>60); GFR (African American) 39 ML/MIN (>60)
[2023-01-25 06:45] LABS: Alanine Aminotransferase 96 U/L (12-78); Albumin Level 3.8 g/dl (3.5-5.0); Albumin/Globulin Ratio 1.2 (1.1-1.8); Alkaline Phosphatase 125 U/L (38-126); Anion Gap 12.9 mEq/L (5-15); Aspartate Amino Transferase 34 U/L (17-59); Bilirubin,Total 0.7 mg/dl (0.2-1.3); Calcium 9.6 mg/dl (8.4-10.2); Carbon Dioxide 31 mmol/L (22.0-30.0); Globulin 3.2 g/dL (1.3-3.2); Glucose 117 mg/dl (74-100); Magnesium 1.9 mg/dl (1.6-2.3)
[2023-01-25 06:51] LABS: INR 2.69 (0.9-1.1); Prothrombin Time 27.2 seconds (10.1-12.5)
--- NOTE | 2023-01-25 10:59 | EXP.CARD.PN ---
Subjective Subjective Date: 01/25/23 Time: 08:30 Principal diagnosis: Acute HFrEF exacerbation Interval history: Patient reports is feeling good this morning. Shortness of air and lower extremity edema are both improving. Patient has diuresed 7 L. Morning labs reviewed and stable. Exam Data for Last 24 hours Vital signs and Labs for Last 24 Hours: Temp Pulse Resp BP Pulse Ox O2 Del Method O2 Flow Rate 98.5 F 60 18 127/74 98 Room Air 2 01/25/23 07:39 01/25/23 07:39 01/25/23 07:39 01/25/23 07:39 01/25/23 07:39 01/25/23 10:51 01/24/23 15:44 Laboratory Results - last 24 hr 01/24/23 08:19: SARS-CoV-2 (PCR) Not detected, Influenza A Untype (PCR) Not detected, Influenza Type B (PCR) Not detected 01/24/23 11:36: POC Glucose 133 H, Troponin I 0.02 01/24/23 13:37: Sodium 137, Potassium 5.1, Chloride 101, Carbon Dioxide 28, Anion Gap 13.1, BUN 32 H, Creatinine 2.10 H, Estimated Creat Clear 57, Estimated GFR 32 L, Est GFR ( Amer) 39 L, Glucose 123 H D, Calcium 9.7 01/24/23 16:15: POC Glucose 139 H 01/24/23 20:14: POC Glucose 138 H 01/25/23 05:37: POC Glucose 123 H 01/25/23 05:48: WBC 7.0, RBC 3.86 L, Hgb 11.1 L, Hct 36.0 L, MCV 93.4, MCH 28.7, MCHC 30.8 L, RDW 15.7, Plt Count 298, MPV 8.3, Neut % (Auto) 71.3, Lymph % (Auto) 17.8, [place] % (Auto) 6.9, Eos % (Auto) 3.3, Baso % (Auto) 0.6, Neut # (Auto) 5.0, Lymph # (Auto) 1.2, [place] # (Auto) 0.5, Eos # (Auto) 0.2, Baso # (Auto) 0.0, PT 27.2 H, INR 2.69 H, Sodium 137, Potassium 4.9, Chloride 98, Carbon Dioxide 31 H, Anion Gap 12.9, BUN 36 H, Creatinine 2.10 H, Estimated Creat Clear 57, Estimated GFR 32 L, Est GFR ( Amer) 39 L, Glucose 117 H, Calcium 9.6, Magnesium 1.9, Total Bilirubin 0.7, AST 34, ALT 96 H, Alkaline Phosphatase 125, Total Protein 7.0, Albumin 3.8, Globulin 3.2, Albumin/Globulin Ratio 1.2 I & O for Last 24 hours: Intake & Output 01/22/23 01/23/23 01/24/23 01/25/23 23:59 23:59 23:59 23:59 Intake Total 1255 / 1975 1680 / 1680 Output Total 5800 / 5800 1300 / 1300 Balance -4545 / -3825 380 / 380 Weight 235 lb 4.8 oz 235 lb 3 oz Constitutional Constitutional: no acute distress *Routine Respiratory Exam Respiratory: Present CTA bilaterally and symmetric chest movement *Routine Cardiovascular Exam Cardiovascular: Present RRR, Normal S1 and Normal S2 *Routine Abdominal Exam Abdominal: Present soft and normoactive bowel sounds; Absent tenderness *Routine Extremities Exam Extremities: Present edema, full ROM and normal capillary refill Comments: Bilateral lower extremity edema present but improved from yesterday. *Routine Skin Exam Skin: Present intact, dry and warm Detailed Neck Exam: Thyroids Thyroid: Absent bruit Progress Note: A&P Assessment and plan (1) Acute exacerbation of CHF (congestive heart failure): Status: Acute (2) NYHA class 3 heart failure with reduced ejection fraction: Problem details: All of Matthew cardiovascular issues are being followed by Dr. Jolly and his team at [facility]. Status: Acute (3) Chronic kidney disease, stage 3a: Status: Chronic (4) S/P CABG (coronary artery bypass graft): Status: Chronic (5) PAF (paroxysmal atrial fibrillation): Status: Chronic (6) CAD (coronary artery disease): Status: Chronic (7) GERD (gastroesophageal reflux disease): Status: Chronic (8) Tobacco dependence syndrome: Status: Chronic (9) HLD (hyperlipidemia): Problem details: He is to return to the clinic for a nurse visit either this week or next for a lab draw and a fasting lipid panel. Status: Chronic (10) HTN (hypertension): Status: Chronic (11) Diabetes: Status: Chronic Assessment and Plan Assessment and Plan for All Diagnoses:: Acute on Chornic HFrEF- NYHA III-IV status post AICD MVR using annuloplasty ring April 2022 History of LV thrombus 2022 -ALBERTO 12/2022 shows an estimated EF of 20% -30 pound weight gain over 2 w
--- NOTE | 2023-01-25 11:00 | EXP.ACUTE.PN ---
Subjective *Date: 01/25/23 *Time: 11:00 Interval history: Diuresed really well yesterday. -4-1/2 L in 24 hours. Tolerated Bumex drip. Weaned to room air. Tolerating p.o. intake. Denies chest pain, nausea, vomiting, fatigue. Medical Exam Vital signs and Labs for Last 24 Hours: Vital Signs Temp Pulse Pulse Resp BP Pulse Ox O2 Del Method 01/25/23 10:51 Room Air 01/25/23 09:00 Room Air 01/25/23 08:00 Room Air 01/25/23 07:39 98.5 F 60 18 127/74 98 Room Air 01/25/23 06:46 Room Air 01/25/23 05:00 Room Air 01/25/23 03:58 97.6 F 60 16 132/76 95 Room Air 01/25/23 00:00 60 01/25/23 00:00 97.9 F 56 L 16 146/74 H 98 Room Air 01/25/23 02:45 Room Air 01/25/23 00:42 Room Air 01/24/23 23:00 Room Air 01/24/23 21:00 Room Air 01/24/23 20:00 60 01/24/23 20:00 Room Air 01/24/23 20:00 97.9 F 61 16 150/79 H 95 Room Air 01/24/23 18:43 Room Air 01/24/23 17:00 Room Air 01/24/23 16:00 60 01/24/23 12:00 60 01/24/23 15:44 98.1 F 60 21 142/81 H 100 Nasal Cannula 01/24/23 15:00 Room Air 01/24/23 13:00 Room Air 01/24/23 11:51 98.1 F 74 17 150/87 H 99 Nasal Cannula O2 Flow Rate 01/25/23 10:51 01/25/23 09:00 01/25/23 08:00 01/25/23 07:39 01/25/23 06:46 01/25/23 05:00 01/25/23 03:58 01/25/23 00:00 01/25/23 00:00 01/25/23 02:45 01/25/23 00:42 01/24/23 23:00 01/24/23 21:00 01/24/23 20:00 12/05/23 20:00 01/24/23 20:00 01/24/23 18:43 01/24/23 17:00 01/24/23 16:00 01/24/23 12:00 01/24/23 15:44 2 01/24/23 15:00 01/24/23 13:00 01/24/23 11:51 2 Intake and Output 01/24/23 01/25/23 01/25/23 23:59 07:59 15:59 Intake Total 315 / 1975 1440 / 1680 240 / 1680 Output Total 2650 / 5800 950 / 1300 350 / 1300 Balance -2335 / -3825 490 / 380 -110 / 380 Intake: Intake, Oral Amount 240 / 1900 1440 / 1680 240 / 1680 Intake, Total IV Amount 75 / 75 Bumetanide 25 mg In 0.9 % 75 / 75 Sodium Chloride 150 ml @ 1 MG/ HR 10 mls/hr IV .Q24H [facility] Rx#: [id number] Output: Output, Urine Amount 2650 / 5800 950 / 1300 350 / 1300 Other: Number of Unmeasured Voids 0 Weight 106.679 kg Patient Weight 01/25/23 23:59 Weight 106.679 kg Laboratory Results - last 24 hr 01/24/23 08:19: SARS-CoV-2 (PCR) Not detected, Influenza A Untype (PCR) Not detected, Influenza Type B (PCR) Not detected 01/24/23 11:36: POC Glucose 133 H, Troponin I 0.02 01/24/23 13:37: Sodium 137, Potassium 5.1, Chloride 101, Carbon Dioxide 28, Anion Gap 13.1, BUN 32 H, Creatinine 2.10 H, Estimated Creat Clear 57, Estimated GFR 32 L, Est GFR ( Amer) 39 L, Glucose 123 H D, Calcium 9.7 01/24/23 16:15: POC Glucose 139 H 01/24/23 20:14: POC Glucose 138 H 01/25/23 05:37: POC Glucose 123 H 01/25/23 05:48: WBC 7.0, RBC 3.86 L, Hgb 11.1 L, Hct 36.0 L, MCV 93.4, MCH 28.7, MCHC 30.8 L, RDW 15.7, Plt Count 298, MPV 8.3, Neut % (Auto) 71.3, Lymph % (Auto) 17.8, [place] % (Auto) 6.9, Eos % (Auto) 3.3, Baso % (Auto) 0.6, Neut # (Auto) 5.0, Lymph # (Auto) 1.2, [place] # (Auto) 0.5, Eos # (Auto) 0.2, Baso # (Auto) 0.0, PT 27.2 H, INR 2.69 H, Sodium 137, Potassium 4.9, Chloride 98, Carbon Dioxide 31 H, Anion Gap 12.9, BUN 36 H, Creatinine 2.10 H, Estimated Creat Clear 57, Estimated GFR 32 L, Est GFR ( Amer) 39 L, Glucose 117 H, Calcium 9.6, Magnesium 1.9, Total Bilirubin 0.7, AST 34, ALT 96 H, Alkaline Phosphatase 125, Total Protein 7.0, Albumin 3.8, Globulin 3.2, Albumin/Globulin Ratio 1.2 I & O for Labs for Last 24 Hours: Intake & Output 01/22/23 01/23/23 01/24/23 01/25/23 23:59 23:59 23:59 23:59 Intake Total 1255 / 1975 1680 / 1680 Output Total 5800 / 5800 1300 / 1300 Balance -4545 / -3825 380 / 380 Weight 106.73 kg 106.679 kg Constitutional: Present no acute distress and chronically ill appearing Head: Present atraumatic and n
[2023-01-25 11:02] LABS: POC Glucose,Bedside 157 (70-110)
[2023-01-25 14:30] LABS: Chloride 98 mmol/L (98-107)
[2023-01-25 14:31] LABS: Potassium 5.3 mmoL/L (3.5-5.1); Sodium 135 mmol/L (136-145)
[2023-01-25 14:33] LABS: Blood Urea Nitrogen 36 mg/dl (9-20); Creatinine Clearance Estimated 57 mL/min (50-200); Estimated Glomerular Filt Rate 32 ml/min (>60); GFR (African American) 39 ML/MIN (>60)
[2023-01-25 14:34] LABS: Anion Gap 12.3 mEq/L (5-15); Calcium 9.9 mg/dl (8.4-10.2); Carbon Dioxide 30 mmol/L (22.0-30.0); Glucose 109 mg/dl (74-100)
[2023-01-25 17:20] LABS: POC Glucose,Bedside 133 (70-110)
--- NOTE | 2023-01-25 17:41 | PC.NURSE ---
Pt is sitting up in bed. Continues to have BLE edema. States he feels better. No complaints stated. Pt is diuresing well. 2700 ml total output. Call light within reach.
[2023-01-25 20:35] LABS: POC Glucose,Bedside 144 (70-110)
[2023-01-26] VITALS (11 sets, daily range): BP systolic 130–147; BP diastolic 64–85; PULSE 60–63; RESP 18–20; TEMP 36.3–36.8; O2SAT 97–100; BMI 33.8
--- NOTE | 2023-01-26 02:28 | PC.NURSE ---
Pt complains of trouble breathing, administered 2L of O2 Pt sating 99-100%, decreased O2 to 1L sats remain 99%, lungs are clear, Pt appears to be anxious. Contacted TOBIAS Victoria @ [phone] to notify him of pt compliants, Julien advised to monitor Pt and notify him of any desats or worsening conditions. Pt is still currently on 1L of O2 and sating at 99% at this time.
--- NOTE | 2023-01-26 04:14 | PC.NURSE ---
Pt is alert and oriented x4. Pt remains on 1L of O2 and is sating 98-99%. Pt states that he feels much better, Pt denies pain and other needs at this time.
[2023-01-26 04:44] LABS: POC Glucose,Bedside 94 (70-110)
[2023-01-26 06:48] LABS: Basophils % 0.3 % (0.1-2.0); Eosinophils # 0.3 K/mm3 (0.0-0.4); Eosinophils % 3.7 % (0.1-12.0); Hematocrit 35.2 % (42.0-52.0); Hemoglobin 11.3 g/dL (14.1-18.0); Lymphocytes # 1.3 K/mm3 (0.7-4.5); Lymphocytes % 19.6 % (10-50); Mean Corpuscular HGB Conc 32.1 g/dL (31.8-35.4); Mean Corpuscular Volume 93.6 fl (80-94); Mean Platelet Volume 7.2 fl (7.4-10.4); Monocytes # 0.4 K/mm3 (0.1-1.0); Monocytes % 6.2 % (1.7-9.3); Neutrophils # 4.7 K/mm3 (1.8-7.8); Neutrophils % 70.2 % (37.0-80.0); Platelet Count 298 K/mm3 (142-424); Red Blood Count 3.76 M/mm3 (4.60-6.20); Red Cell Distribution Width 15.3 % (11.5-17.5); White Blood Count 6.7 K/mm3 (4.8-10.8)
[2023-01-26 07:02] LABS: Chloride 98 mmol/L (98-107); Potassium 4.8 mmoL/L (3.5-5.1); Sodium 136 mmol/L (136-145)
[2023-01-26 07:05] LABS: Alanine Aminotransferase 79 U/L (12-78); Albumin/Globulin Ratio 1.3 (1.1-1.8); Alkaline Phosphatase 122 U/L (38-126); Anion Gap 13.8 mEq/L (5-15); Aspartate Amino Transferase 36 U/L (17-59); Bilirubin,Total 0.6 mg/dl (0.2-1.3); Blood Urea Nitrogen 41 mg/dl (9-20); Calcium 9.7 mg/dl (8.4-10.2); Carbon Dioxide 29 mmol/L (22.0-30.0); Creatinine Clearance Estimated 58 mL/min (50-200); Estimated Glomerular Filt Rate 34 ml/min (>60); GFR (African American) 42 ML/MIN (>60); Globulin 3.1 g/dL (1.3-3.2); Glucose 96 mg/dl (74-100); Total Protein,Serum 7.1 g/dl (6.3-8.2)
--- NOTE | 2023-01-26 10:16 | EXP.ACUTE.PN ---
Subjective *Date: 01/26/23 *Time: 16:37 Interval history: Patient feeling better this morning. Had an episode overnight where he felt orthopneic. Is on room air today however. Tolerating p.o. intake. Diuresing well. Afebrile. Comfortable in bed laying with slight elevation of 15 to 20 degrees. Medical Exam Vital signs and Labs for Last 24 Hours: Vital Signs Temp Pulse Pulse Resp BP Pulse Ox O2 Del Method 01/26/23 09:00 Nasal Cannula 01/26/23 08:00 Room Air 01/26/23 07:32 98.0 F 60 18 141/75 H 98 Room Air 01/26/23 06:44 Nasal Cannula 01/26/23 04:00 98.1 F 61 20 145/67 H 98 Nasal Cannula 01/26/23 04:39 Nasal Cannula 01/26/23 01:59 99 Nasal Cannula 01/26/23 01:29 100 Nasal Cannula 01/26/23 01:05 97 Room Air 01/26/23 02:34 Nasal Cannula 01/26/23 04:00 60 01/26/23 00:00 60 01/25/23 20:00 60 01/26/23 00:00 98.0 F 63 20 147/85 H 100 Nasal Cannula 01/26/23 01:00 Nasal Cannula 01/25/23 23:00 Room Air 01/25/23 20:46 Room Air 01/25/23 20:00 98.1 F 60 16 137/80 97 Room Air 01/25/23 19:30 Room Air 01/25/23 19:00 Room Air 01/25/23 16:00 60 01/25/23 17:00 Room Air 01/25/23 15:00 Room Air 01/25/23 15:18 98.0 F 60 18 142/90 H 97 Room Air 01/25/23 12:00 60 01/25/23 12:51 Room Air 01/25/23 11:55 98.0 F 60 17 135/73 99 Room Air 01/25/23 10:51 Room Air O2 Flow Rate 01/26/23 09:00 1 01/26/23 08:00 01/26/23 07:32 01/26/23 06:44 1 01/26/23 04:00 1 01/26/23 04:39 1 01/26/23 01:59 1 01/26/23 01:29 2 01/26/23 01:05 01/26/23 02:34 1 01/26/23 04:00 01/26/23 00:00 01/25/23 20:00 01/26/23 00:00 2 01/26/23 01:00 1 01/25/23 23:00 01/25/23 20:46 01/25/23 20:00 01/25/23 19:30 01/25/23 19:00 01/25/23 16:00 01/25/23 17:00 01/25/23 15:00 01/25/23 15:18 01/25/23 12:00 01/25/23 12:51 01/25/23 11:55 01/25/23 10:51 Intake and Output 01/25/23 01/26/23 01/26/23 23:59 07:59 15:59 Intake Total 540 / 2880 960 / 960 Output Total 700 / 4900 1000 / 1800 800 / 1800 Balance -160 / -2020 -40 / -840 -800 / -840 Intake: Intake, Oral Amount 540 / 2880 960 / 960 Output: Output, Urine Amount 700 / 4900 1000 / 1800 800 / 1800 Other: Number of Unmeasured Voids 0 0 0 Weight 103.589 kg Patient Weight 01/26/23 23:59 Weight 103.589 kg Laboratory Results - last 24 hr 01/25/23 10:51: POC Glucose 157 H 01/25/23 14:20: Sodium 135 L, Potassium 5.3 H, Chloride 98, Carbon Dioxide 30, Anion Gap 12.3, BUN 36 H, Creatinine 2.10 H, Estimated Creat Clear 57, Estimated GFR 32 L, Est GFR ( Amer) 39 L, Glucose 109 H, Calcium 9.9 01/25/23 16:21: POC Glucose 133 H 01/25/23 20:19: POC Glucose 144 H 01/26/23 04:36: POC Glucose 94 01/26/23 06:34: WBC 6.7, RBC 3.76 L, Hgb 11.3 L, Hct 35.2 L, MCV 93.6, MCH 30.0, MCHC 32.1, RDW 15.3, Plt Count 298, MPV 7.2 L, Neut % (Auto) 70.2, Lymph % (Auto) 19.6, [place] % (Auto) 6.2, Eos % (Auto) 3.7, Baso % (Auto) 0.3, Neut # (Auto) 4.7, Lymph # (Auto) 1.3, [place] # (Auto) 0.4, Eos # (Auto) 0.3, Baso # (Auto) 0.0, Sodium 136, Potassium 4.8, Chloride 98, Carbon Dioxide 29, Anion Gap 13.8, BUN 41 H, Creatinine 2.00 H, Estimated Creat Clear 58, Estimated GFR 34 L, Est GFR ( Amer) 42 L, Glucose 96, Calcium 9.7, Magnesium 2.0, Total Bilirubin 0.6, AST 36, ALT 79 H, Alkaline Phosphatase 122, Total Protein 7.1, Albumin 4.0, Globulin 3.1, Albumin/Globulin Ratio 1.3 I & O for Labs for Last 24 Hours: Intake & Output 01/23/23 01/24/23 01/25/23 01/26/23 23:59 23:59 23:59 23:59 Intake Total 1255 / 1975 2640 / 2880 960 / 960 Output Total 5800 / 5800 3900 / 4900 1800 / 1800 Balance -4545 / -3825 -1260 / -2020 -840 / -840 Weight 106.73 kg 106.67 kg 103.589 kg Constitutional: Present no acute distress and chronically ill appearing Head: Present atraumatic a
[2023-01-26 10:57] LABS: POC Glucose,Bedside 139 (70-110)
--- NOTE | 2023-01-26 11:04 | EXP.CARD.PN ---
Subjective Subjective Date: 01/26/23 Time: 08:30 Principal diagnosis: Acute HFrEF exacerbation Interval history: Symptoms continue to improve per patient. Continues to have mild bilateral lower extremity edema. Morning labs reviewed. Exam Data for Last 24 hours Vital signs and Labs for Last 24 Hours: Temp Pulse Resp BP Pulse Ox O2 Del Method O2 Flow Rate 98.0 F 60 18 141/75 H 98 Nasal Cannula 1 01/26/23 07:32 01/26/23 07:32 01/26/23 07:32 01/26/23 07:32 01/26/23 07:32 01/26/23 09:00 01/26/23 09:00 Laboratory Results - last 24 hr 01/25/23 14:20: Sodium 135 L, Potassium 5.3 H, Chloride 98, Carbon Dioxide 30, Anion Gap 12.3, BUN 36 H, Creatinine 2.10 H, Estimated Creat Clear 57, Estimated GFR 32 L, Est GFR ( Amer) 39 L, Glucose 109 H, Calcium 9.9 01/25/23 16:21: POC Glucose 133 H 01/25/23 20:19: POC Glucose 144 H 01/26/23 04:36: POC Glucose 94 01/26/23 06:34: WBC 6.7, RBC 3.76 L, Hgb 11.3 L, Hct 35.2 L, MCV 93.6, MCH 30.0, MCHC 32.1, RDW 15.3, Plt Count 298, MPV 7.2 L, Neut % (Auto) 70.2, Lymph % (Auto) 19.6, [place] % (Auto) 6.2, Eos % (Auto) 3.7, Baso % (Auto) 0.3, Neut # (Auto) 4.7, Lymph # (Auto) 1.3, [place] # (Auto) 0.4, Eos # (Auto) 0.3, Baso # (Auto) 0.0, Sodium 136, Potassium 4.8, Chloride 98, Carbon Dioxide 29, Anion Gap 13.8, BUN 41 H, Creatinine 2.00 H, Estimated Creat Clear 58, Estimated GFR 34 L, Est GFR ( Amer) 42 L, Glucose 96, Calcium 9.7, Magnesium 2.0, Total Bilirubin 0.6, AST 36, ALT 79 H, Alkaline Phosphatase 122, Total Protein 7.1, Albumin 4.0, Globulin 3.1, Albumin/Globulin Ratio 1.3 01/26/23 10:44: POC Glucose 139 H I & O for Last 24 hours: Intake & Output 01/23/23 01/24/23 01/25/23 01/26/23 23:59 23:59 23:59 23:59 Intake Total 1255 / 1975 2640 / 2880 960 / 960 Output Total 5800 / 5800 3900 / 4900 1800 / 1800 Balance -4545 / -3825 -1260 / -2020 -840 / -840 Weight 235 lb 4.8 oz 235 lb 2.673 oz 228 lb 6 oz Progress Note: A&P Assessment and plan (1) Acute exacerbation of CHF (congestive heart failure): Status: Acute (2) NYHA class 3 heart failure with reduced ejection fraction: Problem details: All of Matthew cardiovascular issues are being followed by Dr. Jolly and his team at [facility]. Status: Acute (3) Chronic kidney disease, stage 3a: Status: Chronic (4) S/P CABG (coronary artery bypass graft): Status: Chronic (5) PAF (paroxysmal atrial fibrillation): Status: Chronic (6) CAD (coronary artery disease): Status: Chronic (7) GERD (gastroesophageal reflux disease): Status: Chronic (8) Tobacco dependence syndrome: Status: Chronic (9) HLD (hyperlipidemia): Problem details: He is to return to the clinic for a nurse visit either this week or next for a lab draw and a fasting lipid panel. Status: Chronic (10) HTN (hypertension): Status: Chronic (11) Diabetes: Status: Chronic Assessment and Plan Assessment and Plan for All Diagnoses:: Acute on Chornic HFrEF- NYHA III-IV status post AICD MVR using annuloplasty ring April 2022 History of LV thrombus 2022 -ALBERTO 12/2022 shows an estimated EF of 20% -30 pound weight gain over 2 weeks -BNP 10,400 -Continue Bumex drip -Strict I's and O's -Continue home dose of Aldactone, Entresto and bisoprolol. Previously patient could not afford Jardiance. -Continue Coumadin for history of LV thrombus 01/26/2023: Patient has diuresed over 10 L. Denies continue to improve however still has some lower extremity edema present. Sinew to diurese with Bumex 2 mg IV twice daily. Paroxysmal atrial fibrillation -Status post left atrial appendage clipping April 2022 -Underwent ALBERTO cardioversion 01/09/2023 -Currently normal sinus rhythm. Continue bisoprolol 5 mg p.o. daily and amiodarone 400 mg p.o. twice daily Coronary artery disease Status post four-vessel CABG -CABG April 2022 -EKG negative for acute ischemic changes -Serial tropo
[2023-01-26 16:07] LABS: POC Glucose,Bedside 152 (70-110)
--- NOTE | 2023-01-26 18:03 | PC.NURSE ---
NO COMPLAINTS THIS SHIFT. TOLERATING ROOM AIR WELL. GOOD URINARY OUTPUT THIS SHIFT.
[2023-01-26 18:41] LABS: Chloride 97 mmol/L (98-107); Sodium 136 mmol/L (136-145)
[2023-01-26 18:42] LABS: Potassium 4.9 mmoL/L (3.5-5.1)
[2023-01-26 18:44] LABS: Anion Gap 13.9 mEq/L (5-15); Blood Urea Nitrogen 42 mg/dl (9-20); Carbon Dioxide 30 mmol/L (22.0-30.0); Creatinine Clearance Estimated 51 mL/min (50-200); Estimated Glomerular Filt Rate 29 ml/min (>60); GFR (African American) 35 ML/MIN (>60)
[2023-01-26 18:45] LABS: Calcium 9.9 mg/dl (8.4-10.2); Glucose 162 mg/dl (74-100)
[2023-01-26 20:22] LABS: POC Glucose,Bedside 222 (70-110)
[2023-01-27] VITALS: BP 129/68; PULSE 60; RESP 18; TEMP 36.6; O2SAT 98
[2023-01-27 04:00] VITALS: BP 131/60; PULSE 60; RESP 16; TEMP 36.7; O2SAT 96; BMI 33.6
[2023-01-27 07:19] LABS: POC Glucose,Bedside 98 (70-110)
[2023-01-27 08:00] VITALS: BP 130/70; PULSE 60; RESP 16; TEMP 36.4; O2SAT 96; O2SAT 97
--- NOTE | 2023-01-27 08:29 | EXP.DC.SUM ---
General Admission date:: 01/24/23 Discharge date: 01/27/23 HPI HPI HPI: Mr. Zayas is a 57-year-old male well-known to our service who has a past medical history of CKD, CAD status post CABG x 4 8 months ago, chronic anticoagulation on warfarin, paroxysmal A-fib, CHF, hypertension, hyperlipidemia, diabetes. He presented to the ER last night due to shortness of breath and increased swelling in his legs. States has been having some increased shortness of breath since last admission when he was admitted for cardioversion on 01/10. Patient was having a flutter and underwent significant aggressive diuresis for CHF exacerbation at that time. Has seen cardiology as an outpatient. Workup in the ER showed elevation in BNP to 10,000, slight EMMA with creatinine of 2.1, potassium of 5.2, and swelling of the legs on exam. Patient noted to have new require of 2 L. Weight over the past several weeks is up about 20 kg. Reports he has been taking his home medications including spironolactone and torsemide. He denies any chest pain, nausea, vomiting, syncope, palpitations. States his urine output has not been as good as previous. Feels more fatigue with exertion. ER consulted medicine for admission. After arrival to the floor, patient noted to have significant lower extremity edema. More distressed than last exam at previous visit. Cardiology consulted. Patient's at bedside, she helps facilitate his medications. States he has been compliant with his medications since last discharge Hospital Course Hospital Course Hospital Course: 57-year-old status post CABG x4 8 months ago who presented to cardiology clinic with a flutter and weight gain concerning for CHF exacerbation. ER consulted medicine, discussed case. Request admission for diuresis and cardiology consult. Medicine agreed to admit. Please improved with diuresis. Patient has put out over 15 L of urine output since admission and is negative almost 10 L. Stable for discharge home to continue diuresis with oral Bumex. Close follow-up with cardiology. Problems addressed as follows: Acute on chronic CHF NYHA class III heart failure History of CABG x 4 Paroxysmal A-fib Hyperlipidemia -Cardiology consulted, appreciate their recommendations.? Patient was initiated on Bumex drip to address his volume overload and edema. Showed significant response with aggressive diuresis during admission. Diuretics weaned to Bumex 1 mg p.o. twice daily to discharge home on. Electrolytes were monitored, remained stable during admission. Kidney function also stable, creatinine 2.0 on day of discharge. Patient still has excess volume noted by his edema in his legs but was weaned to room air within the first 24 hours of admission. Has been breathing comfortably and tolerating medical management of his CHF and volume overload. Continue bisoprolol 5 mg daily, Plavix 75 mg daily, Jardiance 10 mg daily, Entresto 24/26 mg twice daily, amiodarone 40 mg twice daily, Lipitor 80 mg nightly. Continue spironolactone 25 mg daily in conjunction with Bumex. Will need labs at follow-up with cardiology. Stable to discharge on oral regimen. Type 2 diabetes -Insulin-dependent. A1c controlled at 6.6 on previous visit. Continued home glargine and sliding scale insulin. Resume home regimen at discharge. Continued home Wellbutrin for mood On warfarin for anticoagulation. Continue 2.5 mg daily. INR monitored daily. Close follow-up scheduled with Coumadin clinic. NR 2.7 on admission and 2.0 on day of discharge. Exam Data for Last 24 hours Vital signs and Labs for Last 24 Hours: Temp Pulse Resp BP Pulse Ox O2 Del Method O2 Flow Rate 97.5 F L 60 16 130/70 97 Room Air 1 01/27/23 08:00 01/27/23 08:00 01/27/23 08:00 01/27/23 08:00 01/27/23 08:00 01/27/23 08:00 01/26/23 06:44 Laboratory Results - last 24 hr 01/26/23 10:44: POC Glucose 139 H 01/26/23 15:58: POC Glucose 152 H 01/26/23 18:20: Sodium 13
[2023-01-27 08:36] LABS: Basophils % 0.5 % (0.1-2.0); Eosinophils # 0.2 K/mm3 (0.0-0.4); Eosinophils % 3.2 % (0.1-12.0); Hematocrit 36.6 % (42.0-52.0); Hemoglobin 11.3 g/dL (14.1-18.0); INR 2.03 (0.9-1.1); Lymphocytes # 1.2 K/mm3 (0.7-4.5); Lymphocytes % 16.6 % (10-50); Mean Corpuscular HGB Conc 30.9 g/dL (31.8-35.4); Mean Corpuscular Hemoglobin 29.1 pg (27.0-31.2); Mean Platelet Volume 8.4 fl (7.4-10.4); Monocytes # 0.5 K/mm3 (0.1-1.0); Monocytes % 7.3 % (1.7-9.3); Neutrophils # 5.2 K/mm3 (1.8-7.8); Neutrophils % 72.3 % (37.0-80.0); Platelet Count 308 K/mm3 (142-424); Prothrombin Time 20.9 seconds (10.1-12.5); Red Cell Distribution Width 15.6 % (11.5-17.5); White Blood Count 7.3 K/mm3 (4.8-10.8)
[2023-01-27 08:39] LABS: Magnesium 2.1 mg/dl (1.6-2.3)
[2023-01-27 08:40] LABS: Alanine Aminotransferase 66 U/L (12-78); Albumin/Globulin Ratio 1.2 (1.1-1.8); Alkaline Phosphatase 107 U/L (38-126); Aspartate Amino Transferase 43 U/L (17-59); Bilirubin,Total 0.7 mg/dl (0.2-1.3); Calcium 9.8 mg/dl (8.4-10.2); Carbon Dioxide 30 mmol/L (22.0-30.0); Creatinine Clearance Estimated 58 mL/min (50-200); Estimated Glomerular Filt Rate 34 ml/min (>60); GFR (African American) 42 ML/MIN (>60); Globulin 3.3 g/dL (1.3-3.2); Glucose 54 mg/dl (74-100); Total Protein,Serum 7.3 g/dl (6.3-8.2)
[2023-01-27 09:06] LABS: Sodium 135 mmol/L (136-145)
[2023-01-27 09:07] LABS: Anion Gap 10.7 mEq/L (5-15); Chloride 99 mmol/L (98-107); Potassium 4.7 mmoL/L (3.5-5.1)
[2023-01-27 09:08] LABS: Blood Urea Nitrogen 43 mg/dl (9-20)
--- NOTE | 2023-01-27 09:14 | EXP.CARD.PN ---
Subjective Subjective Date: 01/27/23 Time: 08:00 Principal diagnosis: Acute HFrEF exacerbation Interval history: Patient doing well this morning. Denies shortness of breath. Lower extremity edema has nearly completely resolved. Labs reviewed, creatinine 2.3 Exam Data for Last 24 hours Vital signs and Labs for Last 24 Hours: Temp Pulse Resp BP Pulse Ox O2 Del Method O2 Flow Rate 97.5 F L 60 16 130/70 97 Room Air 1 01/27/23 08:00 01/27/23 08:00 01/27/23 08:00 01/27/23 08:00 01/27/23 08:00 01/27/23 08:00 01/26/23 06:44 Laboratory Results - last 24 hr 01/26/23 10:44: POC Glucose 139 H 01/26/23 15:58: POC Glucose 152 H 01/26/23 18:20: Sodium 136, Potassium 4.9, Chloride 97 L, Carbon Dioxide 30, Anion Gap 13.9, BUN 42 H, Creatinine 2.30 H, Estimated Creat Clear 51, Estimated GFR 29 L, Est GFR ( Amer) 35 L, Glucose 162 H D, Calcium 9.9 01/26/23 20:04: POC Glucose 222 H 01/27/23 05:49: POC Glucose 98 01/27/23 07:01: WBC 7.3, RBC 3.90 L, Hgb 11.3 L, Hct 36.6 L, MCV 94.0, MCH 29.1, MCHC 30.9 L, RDW 15.6, Plt Count 308, MPV 8.4, Neut % (Auto) 72.3, Lymph % (Auto) 16.6, [place] % (Auto) 7.3, Eos % (Auto) 3.2, Baso % (Auto) 0.5, Neut # (Auto) 5.2, Lymph # (Auto) 1.2, [place] # (Auto) 0.5, Eos # (Auto) 0.2, Baso # (Auto) 0.0, PT 20.9 H, INR 2.03 H, Sodium 135 L, Potassium 4.7, Chloride 99, Carbon Dioxide 30, Anion Gap 10.7, BUN 43 H, Creatinine 2.00 H, Estimated Creat Clear 58, Estimated GFR 34 L, Est GFR ( Amer) 42 L, Glucose 54 L D, Calcium 9.8, Magnesium 2.1, Total Bilirubin 0.7, AST 43, ALT 66, Alkaline Phosphatase 107, Total Protein 7.3, Albumin 4.0, Globulin 3.3 H, Albumin/Globulin Ratio 1.2 I & O for Last 24 hours: Intake & Output 01/24/23 01/25/23 01/26/23 01/27/23 23:59 23:59 23:59 23:59 Intake Total 1255 / 1975 2640 / 2880 2280 / 2280 720 / 720 Output Total 5800 / 5800 3900 / 4900 4250 / 4250 1100 / 1100 Balance -4545 / -3825 -1260 / -2019 -1969 / -1969 -380 / -380 Weight 235 lb 4.8 oz 235 lb 2.673 oz 228 lb 6 oz 227 lb 4 oz Constitutional Constitutional: no acute distress *Routine Respiratory Exam Respiratory: Present CTA bilaterally and symmetric chest movement *Routine Cardiovascular Exam Cardiovascular: Present RRR, Normal S1 and Normal S2 *Routine Abdominal Exam Abdominal: Present soft and normoactive bowel sounds; Absent tenderness *Routine Extremities Exam Extremities: Present full ROM and normal capillary refill; Absent edema *Routine Skin Exam Skin: Present intact, dry and warm Detailed Neck Exam: Thyroids Thyroid: Absent bruit Progress Note: A&P Assessment and plan (1) Acute exacerbation of CHF (congestive heart failure): Status: Acute (2) NYHA class 3 heart failure with reduced ejection fraction: Problem details: All of Matthew cardiovascular issues are being followed by Dr. Jolly and his team at [facility]. Status: Acute (3) Chronic kidney disease, stage 3a: Status: Chronic (4) S/P CABG (coronary artery bypass graft): Status: Chronic (5) PAF (paroxysmal atrial fibrillation): Status: Chronic (6) CAD (coronary artery disease): Status: Chronic (7) GERD (gastroesophageal reflux disease): Status: Chronic (8) Tobacco dependence syndrome: Status: Chronic (9) HLD (hyperlipidemia): Problem details: He is to return to the clinic for a nurse visit either this week or next for a lab draw and a fasting lipid panel. Status: Chronic (10) HTN (hypertension): Status: Chronic (11) Diabetes: Status: Chronic Assessment and Plan Assessment and Plan for All Diagnoses:: Acute on Chornic HFrEF- NYHA III-IV status post AICD MVR using annuloplasty ring April 2022 History of LV thrombus 2022 -ALBERTO 12/2022 shows an estimated EF of 20% -30 pound weight gain over 2 weeks -BNP 10,400 -Continue Bumex drip -Strict I's and O's -Continue home dose of Aldactone, Entresto and bisoprolol. Previously patien
[2023-01-27 11:57] LABS: POC Glucose,Bedside 182 (70-110)
[2023-01-27 12:00] VITALS: BP 141/74; PULSE 60; RESP 18; TEMP 36.5; O2SAT 98
--- NOTE | 2023-01-30 16:34 | CARE MANAGER ---
Spoke with patient and related to hospital discharge. They made medication changes as instructed. He did go to [facility] this morning for a lump in his throat and they gave him some steroids. He is feeling better, but still has some swelling and a cough. We discussed monitoring the swelling and notifying cardiology if it was getting worse. She mentioned he had blisters on his legs and we discussed watching closely and dressing appropriately if they open. We also discussed the importance of monitoring weight daily and notifying MD if gains 3-5lbs overnight. They are aware of follow up appointments. ZAHIRA Aquino
== END 2023-01-27 14:41 | disposition home or self-care (01) | DRG 291 ==
LOC: ER 05:31 → 2ND 07:36
PROVIDERS: Nurse Practitioner; Nurse Practitioner Family; Admitting Provider Internal Medicine Adolescent Medicine; Emergency Provider Emergency Medicine; PCP Internal Medicine; Visit Provider Internal Medicine Adolescent Medicine
DX: I13.0 Hypertensive heart and chronic kidney disease with heart failure and stage 1 through stage 4 chronic kidney disease, or unspecified chronic kidney disease (principal); I50.23 Acute on chronic systolic (congestive) heart failure; N17.9 Acute kidney failure, unspecified; E11.22 Type 2 diabetes mellitus with diabetic chronic kidney disease; E78.2 Mixed hyperlipidemia; K21.9 Gastro-esophageal reflux disease without esophagitis; F17.200 Nicotine dependence, unspecified, uncomplicated; M19.90 Unspecified osteoarthritis, unspecified site; I48.0 Paroxysmal atrial fibrillation; E87.5 Hyperkalemia; N18.31 Chronic kidney disease, stage 3a; Z79.4 Long term (current) use of insulin; I25.2 Old myocardial infarction; Z86.73 Personal history of transient ischemic attack (TIA), and cerebral infarction without residual deficits; I25.119 Atherosclerotic heart disease of native coronary artery with unspecified angina pectoris; J45.909 Unspecified asthma, uncomplicated; Z79.01 Long term (current) use of anticoagulants
CPT/HCPCS: 36415; 71045; 80048; 80053; 82803; 82962; 83735; 83880; 84484; 85025; 85610; 87636; 93005; 99285

== ENCOUNTER 2023-01-30 08:54 | Emergency (ER) | payer BC, MEDICARE, SELFPAY ==
[2023-01-30 09:10] VITALS: BP 113/70; PULSE 61; RESP 18; TEMP 36.8; O2SAT 98; BMI 34.0
--- NOTE | 2023-01-30 09:14 | EXP.UTC ---
Discharge Plan Disposition Patient Disposition: Home, Self-Care Condition: Good Prescriptions Prescriptions: New prednisone 10 mg tablet 10 mg PO BID 3 Days Qty: 6 0RF No Action mecobalamin (vitamin B12) 1,000 mcg tablet,chewable 1,000 mcg PO DAILY 30 Days Qty: 30 4RF nitroglycerin 0.4 mg tablet, sublingual 0.4 mg sublingual Q5M PRN (Reason: chest pain) Qty: 25 0RF Rx Instructions: do not exceed 3 doses per episode clopidogrel 75 mg tablet 75 mg PO DAILY Qty: 90 3RF tramadol 50 mg tablet 50 mg PO Q8H PRN (Reason: pain) Qty: 30 0RF metformin 1,000 mg tablet 1,000 mg PO BID Qty: 60 2RF Hold Instructions: Resume on 10/21/22. (DME) Blood Glucose Test Strip See Rx Instructions .Route Qty: 100 2RF Rx Instructions: Check sugar twice daily or As directed omeprazole 40 mg capsule,delayed release(DR/EC) 40 mg PO DAILY Trulicity 1.5 mg/0.5 mL pen injector 1.5 mg SQ WEEKLY methocarbamol 500 mg tablet 500 mg PO TIDP PRN (Reason: Muscle Spasms) albuterol sulfate 90 mcg/actuation HFA aerosol inhaler 2 puff inhalation QIDP PRN (Reason: shortness of breath or wheezing) fluticasone propionate 50 mcg/actuation [place],Suspension 1 spray INTRANASAL DAILY Rx Instructions: administer into each nostril spironolactone 25 mg tablet 25 mg PO DAILY bisoprolol fumarate 5 mg tablet 5 mg PO DAILY atorvastatin 40 mg tablet 80 mg PO HS Patient Comments: TAKE 2 TABLETS BY MOUTH AT BEDTIME NIGHTLY FOR CHOLESTEROL warfarin 5 mg Tablet 2.5 mg PO DAILY bumetanide 1 mg Tablet 1 mg PO BIDL 30 Days Qty: 60 0RF Entresto 97-103 mg tablet 1 tab PO BID bupropion HCl 150 mg tablet sustained-release 12 hr 150 mg PO BID Patient Comments: Take 1 tablet by mouth twice daily insulin glargine [Lantus Solostar U-100 Insulin] 100 unit/mL (3 mL) insulin pen 25 unit SQ HS amiodarone 200 mg Tablet 400 mg PO BID 30 Days Qty: 120 0RF Referrals Follow up/Referrals: Alton Day MD [Physician] - See instructions Mal Barfield DO [Primary Care Provider] - See instructions Activity Restrictions/Add. Instructions Additional Instructions/Restrictions: Chew your food well and drink plenty of fluids with your meals. Take the medications as directed. Follow up with the ENT physician (Dr. Day). His office phone number will be on this paperwork. Follow up with your regular doctor. GO TO THE ER FOR ANY WORSENING SYMPTOMS Clinical Impressions Clinical Impression: Esophagitis, Dysphagia Instructions Patient Instructions: Prednisone, DI for Esophagitis Discharge ED Provider: Matthew Tamez [facility] General Stated complaint: feels like something stuck in throat Mode of Arrival: Ambulatory Source of Information: Patient Limitations: No Limitations Time Seen by Provider: 01/30/23 09:14 Description of Symptoms (Recalled from Triage Doc. by RN): Pt stated that this morning after eating a piece of bread he feels like its stuck in his throat. He is able to swallow water fine. He stated that it just hurts to talk and feels stuck . HEENT Symptoms (Recalled from RN notes): Yes Resp Symptoms (Recalled from RN notes): No Skin Symptoms (Recalled from RN notes): No MS Symptoms (Recalled from RN notes): No Functional Status (Recalled from RN notes): n/a History of Present Illness Provider Complaint: He states that for the past 1 day he has had voice hoarseness and the feeling of something stuck in his throat . He denies fever/chills. He states that he is able to swallow things, but the feeling of something in his throat persists. He states that he has had this feeling on and off since he had heart surgery around 9 months ago. He denies that he is having any chest pain. Related Data Home Medications Medication Instructions Recorded Confirmed omeprazole 40 mg capsule,delayed 40 mg PO DAILY
[2023-01-30 09:20] LABS: UTC Strep Screen (Rapid) Negative (Negative)
--- NOTE | 2023-01-30 09:36 | XR_ITS ---
FINAL REPORT CLINICAL HISTORY: feels like something in throat FINDINGS: NECK SOFT TISSUE AP and lateral views of the neck soft tissues were obtained. The airway is normal, without evidence of narrowing. no soft tissue mass is seen. There is no radiopaque foreign body identified. There is moderate disc space narrowing at C4-5 and C5-6. There is reversal of lordosis. Extensive carotid calcification is seen, greater than expected for patient's age. IMPRESSION: No acute bony abnormality. Extensive carotid calcification. Recommend carotid duplex. Reviewed, Interpreted and Dictated by Gurinder Caruso MD Transcribed by Dfane Gillespie Authenticated and [facility]
[2023-01-30 10:28] VITALS: BP 113/70; PULSE 61; RESP 18; TEMP 36.8; O2SAT 98
== END 2023-01-30 10:28 | disposition home or self-care (01) ==
PROVIDERS: Emergency Provider Nurse Practitioner Family; PCP Internal Medicine
DX: K20.90 Esophagitis, unspecified without bleeding (principal); R13.10 Dysphagia, unspecified; F17.210 Nicotine dependence, cigarettes, uncomplicated; K21.9 Gastro-esophageal reflux disease without esophagitis; J45.909 Unspecified asthma, uncomplicated; E11.40 Type 2 diabetes mellitus with diabetic neuropathy, unspecified; I11.0 Hypertensive heart disease with heart failure; I50.20 Unspecified systolic (congestive) heart failure; I25.119 Atherosclerotic heart disease of native coronary artery with unspecified angina pectoris; Z95.5 Presence of coronary angioplasty implant and graft; Z79.4 Long term (current) use of insulin; Z79.85 Long-term (current) use of injectable non-insulin antidiabetic drugs
CPT/HCPCS: 70360; 87880; 99212; 99214; G0463

== ENCOUNTER → 2023-01-30 10:36 | Outpatient (CLI) | payer BC, MEDICARE, SELFPAY ==
[2023-01-30 11:34] LABS: PHA INR Fingerstick 3.3 (0.9-1.1)
== END ==
PROVIDERS: PCP Physician Assistant; Visit Provider Physician Assistant
DX: Z51.81 Encounter for therapeutic drug level monitoring (principal); Z79.01 Long term (current) use of anticoagulants
CPT/HCPCS: 85610; 99211; G0463

== ENCOUNTER 2023-02-02 11:25 | Outpatient (CLI) | payer BC, MEDICARE, SELFPAY ==
[2023-02-02 13:44] LABS: Alanine Aminotransferase 35 U/L (12-78); Albumin Level 3.9 g/dl (3.5-5.0); Alkaline Phosphatase 123 U/L (38-126); Anion Gap 10.7 mEq/L (5-15); Aspartate Amino Transferase 34 U/L (17-59); Bilirubin,Direct 0.2 mg/dl (0.0-0.4); Bilirubin,Indirect 0.5 mg/dL (0.0-0.9); Bilirubin,Total 0.7 mg/dl (0.2-1.3); Bilirubin,Unconjugated 0.5 mg/dL (0.0-1.1); Blood Urea Nitrogen 49 mg/dl (9-20); Calcium 9.4 mg/dl (8.4-10.2); Carbon Dioxide 31 mmol/L (22.0-30.0); Chloride 99 mmol/L (98-107); Chol/HDL Ratio 3.3 (1-3.5); Cholesterol 115 mg/dl (140-200); Estimated Glomerular Filt Rate 27 ml/min (>60); GFR (African American) 32 ML/MIN (>60); Glucose 96 mg/dl (74-100); HDL Cholesterol 35 mg/dl (40-60); Magnesium 2.3 mg/dl (1.6-2.3); Potassium 4.7 mmoL/L (3.5-5.1); Sodium 136 mmol/L (136-145); Total Protein,Serum 6.8 g/dl (6.3-8.2); Triglycerides 83 mg/dl (30-150); VLDL Cholesterol 17 mg/dL (0-40)
[2023-02-02 13:55] LABS: Direct LDL Cholesterol 68.56 mg/dL (100-129)
[2023-02-02 14:05] LABS: Free T4 (Free Thyroxine) 2.39 ng/dl (0.78-2.19)
[2023-02-02 14:17] LABS: Thyroid Stimulating Hormone 4.47 uIU/mL (0.465-4.68)
[2023-02-02 14:23] LABS: PHA INR Fingerstick 2.5 (0.9-1.1)
== END 2023-02-02 14:44 ==
PROVIDERS: Internal Medicine; PCP Internal Medicine; Visit Provider Physician Assistant
DX: I50.20 Unspecified systolic (congestive) heart failure (principal); N18.31 Chronic kidney disease, stage 3a; E11.9 Type 2 diabetes mellitus without complications; E78.5 Hyperlipidemia, unspecified; I10 Essential (primary) hypertension; I25.10 Atherosclerotic heart disease of native coronary artery without angina pectoris; I48.0 Paroxysmal atrial fibrillation; Z51.81 Encounter for therapeutic drug level monitoring; Z79.01 Long term (current) use of anticoagulants; Z79.4 Long term (current) use of insulin
CPT/HCPCS: 36415; 80048; 80061; 80076; 83735; 84439; 84443; 85610; 99211; G0463

== ENCOUNTER 2023-02-07 05:12 | Emergency (ER) | payer BC, MEDICARE, SELFPAY ==
[2023-02-07 05:14] VITALS: BP 132/76; PULSE 59; RESP 20; TEMP 36.9; O2SAT 96; BMI 32.5
--- NOTE | 2023-02-07 05:26 | HMH.EDGENADL ---
Discharge Plan Disposition Patient Disposition: Home, Self-Care Prescriptions Prescriptions: No Action mecobalamin (vitamin B12) 1,000 mcg tablet,chewable 1,000 mcg PO DAILY 30 Days Qty: 30 4RF amiodarone 200 mg tablet 200 mg PO BID Qty: 60 2RF bumetanide 1 mg tablet 1 mg PO .COMPLEX Qty: 30 2RF Rx Instructions: 1 mg orally; Take one tab daily on Monday and afternoons. (Take with the Bumex 1mg BID) nitroglycerin 0.4 mg tablet, sublingual 0.4 mg sublingual Q5M PRN (Reason: chest pain) Qty: 25 0RF Rx Instructions: do not exceed 3 doses per episode clopidogrel 75 mg tablet 75 mg PO DAILY Qty: 90 3RF tramadol 50 mg tablet 50 mg PO Q8H PRN (Reason: pain) Qty: 30 0RF metformin 1,000 mg tablet 1,000 mg PO BID Qty: 60 2RF Hold Instructions: Resume on 10/21/22. (DME) Blood Glucose Test Strip See Rx Instructions .Route Qty: 100 2RF Rx Instructions: Check sugar twice daily or As directed omeprazole 40 mg capsule,delayed release(DR/EC) 40 mg PO DAILY Trulicity 1.5 mg/0.5 mL pen injector 1.5 mg SQ WEEKLY methocarbamol 500 mg tablet 500 mg PO TIDP PRN (Reason: Muscle Spasms) albuterol sulfate 90 mcg/actuation HFA aerosol inhaler 2 puff inhalation QIDP PRN (Reason: shortness of breath or wheezing) fluticasone propionate 50 mcg/actuation [place],Suspension 1 spray INTRANASAL DAILY Rx Instructions: administer into each nostril spironolactone 25 mg tablet 25 mg PO DAILY bisoprolol fumarate 5 mg tablet 5 mg PO DAILY atorvastatin 40 mg tablet 80 mg PO HS Patient Comments: TAKE 2 TABLETS BY MOUTH AT BEDTIME NIGHTLY FOR CHOLESTEROL warfarin 5 mg Tablet 2.5 mg PO DAILY bumetanide 1 mg Tablet 1 mg PO BIDL 30 Days Qty: 60 0RF Entresto 97-103 mg tablet 1 tab PO BID bupropion HCl 150 mg tablet sustained-release 12 hr 150 mg PO BID Patient Comments: Take 1 tablet by mouth twice daily insulin glargine [Lantus Solostar U-100 Insulin] 100 unit/mL (3 mL) insulin pen 25 unit SQ HS prednisone 10 mg tablet 10 mg PO BID 3 Days Qty: 6 0RF Referrals Follow up/Referrals: Mal Barfield DO [Primary Care Provider] - See instructions Activity Restrictions/Add. Instructions Additional Instructions/Restrictions: Recommend following up with your primary care doctor for swallowing study and further assessment. Please return to the emergency department if you develop any new or worsening symptoms or become concerned for your health. Clinical Impressions Clinical Impression: Globus sensation Discharge ED Provider: Andrei Marques General Adult HPI General Chief complaint: PAIN Stated complaint: Something caught in throat Time Seen by Provider: 02/07/23 05:18 History of Present Illness HPI narrative: 57-year-old male, history of coronary artery disease status post bypass, paroxysmal A-fib, heart failure, chronic kidney disease presents with acute on chronic dysphagia. He reports that he woke up in the middle the night with a choking sensation, was having trouble catching his breath, reports he has having difficulty swallowing secretions. He reports the symptoms have been present but intermittent over the last 10 months since he was intubated for his bypass surgery. Symptoms have been worsening. They have been trying to get into see an ENT for dysphagia but have been unsuccessful. Related Data Home Medications Medication Instructions Recorded Confirmed omeprazole 40 mg capsule,delayed 40 mg PO DAILY Acid reflux 03/21/22 02/02/23 release dulaglutide 1.5 mg/0.5 mL 1.5 mg SQ WEEKLY Diabetes 06/04/22 02/02/23 subcutaneous pen injector (Trulicity) albuterol sulfate 90 mcg/actuation 2 puff inhalation QIDP PRN 06/05/22 02/02/23 aerosol inhaler shortness of breath or wheezing methocarbamol 500 mg tablet 500 mg PO TIDP PRN Muscle Spasms 06/05/22 02/02/23 fluti
--- NOTE | 2023-02-07 05:45 | PC.NURSE ---
Attempted IV access x2, unsuccessful. Pt tolerated well
[2023-02-07 06:35] LABS: Chloride 101 mmol/L (98-107); Potassium 5.1 mmoL/L (3.5-5.1); Sodium 136 mmol/L (136-145)
[2023-02-07 06:37] LABS: Alanine Aminotransferase 33 U/L (12-78); Albumin Level 4.1 g/dl (3.5-5.0); Albumin/Globulin Ratio 1.3 (1.1-1.8); Alkaline Phosphatase 109 U/L (38-126); Anion Gap 15.1 mEq/L (5-15); Aspartate Amino Transferase 41 U/L (17-59); Bilirubin,Total 0.7 mg/dl (0.2-1.3); Blood Urea Nitrogen 46 mg/dl (9-20); Carbon Dioxide 25 mmol/L (22.0-30.0); Creatinine Clearance Estimated 49 mL/min (50-200); Estimated Glomerular Filt Rate 29 ml/min (>60); GFR (African American) 35 ML/MIN (>60); Globulin 3.2 g/dL (1.3-3.2); Total Protein,Serum 7.3 g/dl (6.3-8.2)
[2023-02-07 06:38] LABS: Calcium 8.7 mg/dl (8.4-10.2); Glucose 124 mg/dl (74-100)
[2023-02-07 06:52] VITALS: BP 145/81; PULSE 65; RESP 20; TEMP 36.8; O2SAT 96
[2023-02-07 07:20] LABS: Basophils # 0.1 K/mm3 (0-0.2); Basophils % 0.5 % (0.1-2.0); Eosinophils # 0.3 K/mm3 (0.0-0.4); Eosinophils % 3.2 % (0.1-12.0); Hematocrit 35.8 % (42.0-52.0); Hemoglobin 11.5 g/dL (14.1-18.0); Lymphocytes # 1.1 K/mm3 (0.7-4.5); Lymphocytes % 12.5 % (10-50); Mean Corpuscular Hemoglobin 30.3 pg (27.0-31.2); Mean Corpuscular Volume 94.6 fl (80-94); Mean Platelet Volume 7.5 fl (7.4-10.4); Monocytes # 0.5 K/mm3 (0.1-1.0); Monocytes % 6.1 % (1.7-9.3); Neutrophils # 6.9 K/mm3 (1.8-7.8); Neutrophils % 77.7 % (37.0-80.0); Platelet Count 206 K/mm3 (142-424); Red Blood Count 3.78 M/mm3 (4.60-6.20); Red Cell Distribution Width 16.5 % (11.5-17.5); White Blood Count 8.9 K/mm3 (4.8-10.8)
== END 2023-02-07 06:56 | disposition home or self-care (01) ==
PROVIDERS: Emergency Provider Emergency Medicine; PCP Internal Medicine
DX: R13.10 Dysphagia, unspecified (principal); I25.118 Atherosclerotic heart disease of native coronary artery with other forms of angina pectoris; I48.0 Paroxysmal atrial fibrillation; J45.909 Unspecified asthma, uncomplicated; E11.40 Type 2 diabetes mellitus with diabetic neuropathy, unspecified; K21.9 Gastro-esophageal reflux disease without esophagitis; I11.0 Hypertensive heart disease with heart failure; I50.20 Unspecified systolic (congestive) heart failure; I25.2 Old myocardial infarction; F17.210 Nicotine dependence, cigarettes, uncomplicated; Z86.718 Personal history of other venous thrombosis and embolism; Z86.73 Personal history of transient ischemic attack (TIA), and cerebral infarction without residual deficits
CPT/HCPCS: 80053; 85025; 99283

== ENCOUNTER 2023-02-10 10:25 | Outpatient (CLI) | payer BC, MEDICARE, SELFPAY ==
[2023-02-10 14:00] LABS: PHA INR Fingerstick 4.2 (0.9-1.1)
== END 2023-02-10 14:06 ==
LOC: ACC 10:26
PROVIDERS: PCP Internal Medicine; Visit Provider Physician Assistant
DX: Z51.81 Encounter for therapeutic drug level monitoring (principal); Z79.01 Long term (current) use of anticoagulants
CPT/HCPCS: 85610; 99211; G0463

== ENCOUNTER 2023-02-10 11:02 | Observation (INO) | payer BC, MEDICARE, SELFPAY ==
[2023-02-10 11:03] VITALS: BP 125/67; PULSE 58; RESP 20; TEMP 36.7; O2SAT 99; BMI 34.0
--- NOTE | 2023-02-10 11:12 | XR_ITS ---
FINAL REPORT CLINICAL HISTORY: dyspnea COMPARISON: 01/24/2023 FINDINGS: SINGLE-VIEW CHEST There is mild cardiomegaly. The patient is status post median sternotomy. A pacer is identified. The lungs are underinflated. There is no pneumothorax. IMPRESSION: No acute cardiopulmonary process. Reviewed, Interpreted and Dictated by Gurinder Caruso MD Transcribed by Maryellen Minor Authenticated and [facility]
--- NOTE | 2023-02-10 11:14 | HMH.EDGENADL ---
Discharge Plan Disposition Patient Disposition: Admitted Prescriptions Prescriptions: No Action mecobalamin (vitamin B12) 1,000 mcg tablet,chewable 1,000 mcg PO DAILY 30 Days Qty: 30 4RF amiodarone 200 mg tablet 200 mg PO BID Qty: 60 2RF bumetanide 1 mg tablet 1 mg PO .COMPLEX Qty: 30 2RF Rx Instructions: 1 mg orally; Take one tab daily on Monday and afternoons. (Take with the Bumex 1mg BID) nitroglycerin 0.4 mg tablet, sublingual 0.4 mg sublingual Q5M PRN (Reason: chest pain) Qty: 25 0RF Rx Instructions: do not exceed 3 doses per episode clopidogrel 75 mg tablet 75 mg PO DAILY Qty: 90 3RF tramadol 50 mg tablet 50 mg PO Q8H PRN (Reason: pain) Qty: 30 0RF tizanidine 2 mg capsule 2 mg PO TID PRN (Reason: muscle spasticity) Qty: 60 2RF metformin 1,000 mg tablet 1,000 mg PO BID Qty: 60 2RF Hold Instructions: Resume on 10/21/22. (DME) Blood Glucose Test Strip See Rx Instructions .Route Qty: 100 2RF Rx Instructions: Check sugar twice daily or As directed omeprazole 40 mg capsule,delayed release(DR/EC) 40 mg PO DAILY Trulicity 1.5 mg/0.5 mL pen injector 1.5 mg SQ WEEKLY albuterol sulfate 90 mcg/actuation HFA aerosol inhaler 2 puff inhalation QIDP PRN (Reason: shortness of breath or wheezing) fluticasone propionate 50 mcg/actuation [place],Suspension 1 spray INTRANASAL DAILY Rx Instructions: administer into each nostril spironolactone 25 mg tablet 25 mg PO DAILY bisoprolol fumarate 5 mg tablet 5 mg PO DAILY atorvastatin 40 mg tablet 80 mg PO HS Patient Comments: TAKE 2 TABLETS BY MOUTH AT BEDTIME NIGHTLY FOR CHOLESTEROL warfarin 5 mg Tablet 2.5 mg PO DAILY bumetanide 1 mg Tablet 1 mg PO BIDL 30 Days Qty: 60 0RF Entresto 97-103 mg tablet 1 tab PO BID bupropion HCl 150 mg tablet sustained-release 12 hr 150 mg PO BID Patient Comments: Take 1 tablet by mouth twice daily insulin glargine [Lantus Solostar U-100 Insulin] 100 unit/mL (3 mL) insulin pen 25 unit SQ HS prednisone 10 mg tablet 10 mg PO BID 3 Days Qty: 6 0RF Referrals Follow up/Referrals: Mal Barfield DO [Primary Care Provider] - See instructions Clinical Impressions Clinical Impression: Acute exacerbation of CHF (congestive heart failure), Cardiac volume overload, Acute hyperkalemia Discharge ED Provider: Kevyn Carter General Adult HPI General Chief complaint: Extremity Problem,Nontraumatic Stated complaint: soa and swollen body Time Seen by Provider: 02/10/23 11:06 History of Present Illness HPI narrative: Patient is a 57-year-old male presents today with dyspnea and bilateral lower extremity swelling. Has a known history of heart failure was recently admitted for IV diuresis with Bumex had close follow-up with Dr. Villarreal for the patient was found to be noncompliant with some doses of Bumex and his Bumex doses were increased. Patient states that he was going to his Coumadin clinic today and they noted that he had a significant worsening of his lower extremity edema he also is short of breath with even activities of daily living at the moment and they called the cardiology clinic who told him to come to the emergency department for diuresis. Patient believes that he is about 20 pounds up from his dry weight. Related Data Home Medications Medication Instructions Recorded Confirmed omeprazole 40 mg capsule,delayed 40 mg PO DAILY Acid reflux 03/21/22 02/09/23 release dulaglutide 1.5 mg/0.5 mL 1.5 mg SQ WEEKLY Diabetes 06/04/22 02/09/23 subcutaneous pen injector (Trulicity) albuterol sulfate 90 mcg/actuation 2 puff inhalation QIDP PRN 06/05/22 02/09/23 aerosol inhaler shortness of breath or wheezing fluticasone propionate 50 1 spray intranasal DAILY allergies 06/07/22 02/09/23 mcg/actuation nasal spray,suspension bisoprolol fumarate 5 mg tablet 5 mg PO [place]
--- NOTE | 2023-02-10 11:25 | ECG_ITS ---
APPROVED REPORT Exam: Resting ECG HR:60 bpm ECG Measurements Heart Rate 60 AXES LA 213 P 92 QRSd 158 QRS 152 QT 501 T -19 QTc 501 Conclusion ELECTRONIC ATRIAL PACEMAKER INTRAVENTRICULAR CONDUCTION DELAY [130+ ms QRS DURATION] POSSIBLE RIGHT VENTRICULAR HYPERTROPHY [SOME/ALL OF: PROMINENT R IN V1, LATE TRANSITION, RAD, HUSAM, SSS] POSSIBLE ANTERIOR MYOCARDIAL INFARCTION , PROBABLY OLD [30 ms Q WAVE IN V3/V4, OR R < 0.2 mV IN V4] ABNORMAL ECG UNCONFIRMED REPORT Electronically signed by : Jarod Salter MD 02/10/2023 17:59:03
[2023-02-10 11:31] VITALS: BP 119/59; PULSE 61; RESP 20; O2SAT 97
--- NOTE | 2023-02-10 11:48 | PC.NURSE ---
rad at bedside portable cxr
[2023-02-10 12:22] LABS: Basophils # 0.1 K/mm3 (0-0.2); Basophils % 0.5 % (0.1-2.0); Eosinophils # 0.3 K/mm3 (0.0-0.4); Eosinophils % 2.8 % (0.1-12.0); Hematocrit 38.4 % (42.0-52.0); Hemoglobin 11.9 g/dL (14.1-18.0); Lymphocytes # 0.9 K/mm3 (0.7-4.5); Lymphocytes % 9.2 % (10-50); Mean Corpuscular Hemoglobin 29.4 pg (27.0-31.2); Mean Corpuscular Volume 94.7 fl (80-94); Mean Platelet Volume 8.3 fl (7.4-10.4); Monocytes # 0.6 K/mm3 (0.1-1.0); Neutrophils # 7.9 K/mm3 (1.8-7.8); Neutrophils % 81.6 % (37.0-80.0); Platelet Count 268 K/mm3 (142-424); Red Blood Count 4.06 M/mm3 (4.60-6.20); Red Cell Distribution Width 17.2 % (11.5-17.5); White Blood Count 9.7 K/mm3 (4.8-10.8)
[2023-02-10 12:28] LABS: Chloride 99 mmol/L (98-107); Sodium 138 mmol/L (136-145)
[2023-02-10 12:31] LABS: Alanine Aminotransferase 35 U/L (12-78); Albumin Level 4.5 g/dl (3.5-5.0); Albumin/Globulin Ratio 1.4 (1.1-1.8); Alkaline Phosphatase 135 U/L (38-126); Aspartate Amino Transferase 42 U/L (17-59); Bilirubin,Total 0.8 mg/dl (0.2-1.3); Blood Urea Nitrogen 49 mg/dl (9-20); Calcium 9.7 mg/dl (8.4-10.2); Carbon Dioxide 27 mmol/L (22.0-30.0); Creatinine Clearance Estimated 47 mL/min (50-200); Estimated Glomerular Filt Rate 27 ml/min (>60); GFR (African American) 32 ML/MIN (>60); Globulin 3.3 g/dL (1.3-3.2); Glucose 123 mg/dl (74-100); Magnesium 2.4 mg/dl (1.6-2.3); Total Protein,Serum 7.8 g/dl (6.3-8.2)
[2023-02-10 12:40] LABS: NT Pro Brain Natriuretic Pep. 17200 pg/mL (0-125)
--- NOTE | 2023-02-10 12:41 | PC.NURSE ---
Dr. Carter s/w Dr. Russo for possible admission
[2023-02-10 12:43] LABS: Troponin I 0.02 ng/ml (0.00-0.034)
--- NOTE | 2023-02-10 12:46 | PC.NURSE ---
Cleo s/w Sintia in Care Management to notify of admission to Dr. Russo for Exacerbation of CHF and Hyperkalemia
[2023-02-10 13:59] VITALS: BP 119/59; PULSE 61; RESP 20; TEMP 36.7; O2SAT 97
--- NOTE | 2023-02-10 13:59 | HMH.PHAINT1 ---
Pharmacy Intervention Comments: MEDICATION RECONCILIATION COMPLETE USING LIST FROM MOST RECENT CARDIOLOGY OFFICE VISIT AND EXTERNAL PHARMACY FILL HISTORY.
[2023-02-10 14:56] VITALS: BP 155/80; PULSE 63; RESP 20; TEMP 36.4; O2SAT 97; BMI 33.5
[2023-02-10 14:56] LABS: Troponin I 0.02 ng/ml (0.00-0.034)
[2023-02-10 16:00] VITALS: PULSE 60
[2023-02-10 18:03] LABS: POC Glucose,Bedside 576 (70-110)
--- NOTE | 2023-02-10 18:07 | PC.NURSE ---
Patient new admit from the ER. Patient A&Ox4 and VSS. Pt glucose 576, MD notified and stat glucose ordered and lab notified.
--- NOTE | 2023-02-10 18:10 | EXP.HP ---
History of Present Illness *Admission Date: 02/10/23 *Reason for visit:: SOB *History of present illness: Patient is a 57-year-old male with past medical history of CHF hypertension hyperlipidemia PAF, chronic kidney disease who presents to the hospital due to weight gain, shortness of breath. According to patient he also woke up in the middle of the night gasping for air 2 to 3 days ago, he usually sleeps in couch. He has difficulty lying down flat. He also has noted bilateral lower extremity swelling with more than his normal. Patient otherwise denies fever chills nausea vomiting diarrhea constipation dysuria chest pain. [facility] Disclaimer: The information contained in this section may have been updated after the patient was seen, as this information can be updated by other users. Medical History Arthritis Asthma Coronary artery disease Deviated nasal septum Diabetes Diabetes mellitus, type 2 Dizziness Dyspnea GERD (gastroesophageal reflux disease) H/O blood clots History of heart attack History of stroke Hoarseness Hypertension Neuropathy Smoker Systolic heart failure Typical angina Surgical History History of heart artery stent S/P CABG x 4 Family History Other Cancer Coronary artery disease Diabetes Hypertension Kidney disease Stroke Social History (Updated 02/10/23 @ 14:24 by Pamella Menendez RN) Smoking Status: Current every day smoker tobacco type: cigarettes packs per day: 1 second hand exposure: Yes alcohol intake: never counseling provided: none substance use type: denies use current occupational status: other Travel in the last 8 weeks: None household members: family housing: house Review of Systems Review of Systems Review of systems (narrative): as per HPI Meds Home Medications and Allergies Home Medications Medication Instructions Recorded Confirmed Type omeprazole 40 mg capsule,delayed 40 mg PO DAILY Acid reflux 03/21/22 02/10/23 History release dulaglutide 1.5 mg/0.5 mL 1.5 mg SQ WEEKLY Diabetes 06/04/22 02/10/23 History subcutaneous pen injector (Trulicity) albuterol sulfate 90 mcg/actuation 2 puff inhalation QIDP PRN 06/05/22 02/10/23 History aerosol inhaler shortness of breath or wheezing fluticasone propionate 50 1 spray intranasal DAILY Allergy 06/07/22 02/10/23 History mcg/actuation nasal Symptoms spray,suspension bisoprolol fumarate 5 mg tablet 5 mg PO DAILY High Blood Pressure 06/17/22 02/10/23 History spironolactone 25 mg tablet 25 mg PO DAILY Fluid 06/17/22 02/10/23 History sacubitril 97 mg-valsartan 103 mg 1 tab PO BID High Blood Pressure 10/18/22 02/10/23 History tablet (Entresto) bupropion HCl 150 mg tablet,12 hr 150 mg PO BID mood 01/10/23 02/10/23 History sustained-release insulin glargine 100 unit/mL (3 25 unit SQ HS Diabetes 01/10/23 02/10/23 History mL) subcutaneous pen (Lantus Solostar U-100 Insulin) atorvastatin 40 mg tablet 80 mg PO HS Cholesterol 01/24/23 02/10/23 History bumetanide 1 mg tablet 1 mg PO BIDL 30 days #60 tabs 01/27/23 02/10/23 Rx amiodarone 200 mg tablet 200 mg PO BID Heart Rhythm 02/10/23 02/10/23 History bumetanide 1 mg tablet 1 mg PO MOTH@1600 Fluid 02/10/23 02/10/23 History clopidogrel 75 mg tablet 75 mg PO DAILY Blood Thinner 02/10/23 02/10/23 History mecobalamin (vitamin B12) 1,000 1,000 mcg PO DAILY Supplement 02/10/23 02/10/23 History mcg chewable tablet metformin 1,000 mg tablet 1,000 mg PO BIDWMEAL Diabetes 02/10/23 02/10/23 History nitroglycerin 0.4 mg sublingual 0.4 mg sublingual Q5MINP PRN chest 02/10/23 02/10/23 History tablet pain tizanidine 2 mg capsule 2 mg PO TIDP PRN muscle spasticity 02/10/23 02/10/23 History tramadol 50 mg tablet 50 mg PO Q8HP PRN pain 02/10/23 02/10/23 History warfari
[2023-02-10 18:23] LABS: Troponin I < 0.01 ng/ml (0.00-0.034)
[2023-02-10 18:29] LABS: Glucose,Random 164 mg/dL (74-100)
--- NOTE | 2023-02-10 18:43 | PC.NURSE ---
Cou[facility]. cou[facility]in on hold, INR 4.2
[2023-02-10 20:00] VITALS: BP 142/73; PULSE 60; PULSE 62; RESP 16; TEMP 36.6; O2SAT 98
[2023-02-10 20:19] LABS: POC Glucose,Bedside 84 (70-110)
[2023-02-10 21:28] LABS: POC Glucose,Bedside 65 (70-110)
[2023-02-10 22:35] LABS: POC Glucose,Bedside 74 (70-110)
[2023-02-11] VITALS (9 sets, daily range): BP systolic 120–157; BP diastolic 63–80; PULSE 56–84; RESP 16–18; TEMP 36.5–37.1; O2SAT 96–100; BMI 33.7
[2023-02-11 00:02] LABS: POC Glucose,Bedside 75 (70-110)
[2023-02-11 01:18] LABS: POC Glucose,Bedside 73 (70-110)
[2023-02-11 03:14] LABS: POC Glucose,Bedside 91 (70-110)
[2023-02-11 05:34] LABS: POC Glucose,Bedside 141 (70-110)
[2023-02-11 07:46] LABS: Basophils # 0.1 K/mm3 (0-0.2); Basophils % 0.7 % (0.1-2.0); Eosinophils # 0.3 K/mm3 (0.0-0.4); Eosinophils % 3.9 % (0.1-12.0); Hematocrit 34.8 % (42.0-52.0); Lymphocytes % 12.9 % (10-50); Mean Corpuscular HGB Conc 31.6 g/dL (31.8-35.4); Mean Corpuscular Hemoglobin 29.5 pg (27.0-31.2); Mean Corpuscular Volume 93.2 fl (80-94); Monocytes # 0.5 K/mm3 (0.1-1.0); Monocytes % 6.7 % (1.7-9.3); Neutrophils # 5.9 K/mm3 (1.8-7.8); Neutrophils % 75.8 % (37.0-80.0); Platelet Count 224 K/mm3 (142-424); Red Blood Count 3.74 M/mm3 (4.60-6.20); Red Cell Distribution Width 17.5 % (11.5-17.5); White Blood Count 7.8 K/mm3 (4.8-10.8)
[2023-02-11 07:49] LABS: Chloride 100 mmol/L (98-107); Potassium 4.9 mmoL/L (3.5-5.1); Sodium 138 mmol/L (136-145)
[2023-02-11 07:52] LABS: Anion Gap 15.9 mEq/L (5-15); Blood Urea Nitrogen 46 mg/dl (9-20); Carbon Dioxide 27 mmol/L (22.0-30.0); Creatinine Clearance Estimated 46 mL/min (50-200); Estimated Glomerular Filt Rate 27 ml/min (>60); GFR (African American) 32 ML/MIN (>60)
[2023-02-11 07:53] LABS: Calcium 9.1 mg/dl (8.4-10.2); Glucose 113 mg/dl (74-100)
[2023-02-11 08:02] LABS: Prothrombin Time 37.6 seconds (10.1-12.5)
[2023-02-11 10:38] LABS: POC Glucose,Bedside 136 (70-110)
[2023-02-11 15:59] LABS: POC Glucose,Bedside 201 (70-110)
--- NOTE | 2023-02-11 16:38 | EXP.PN ---
Subjective *Date: 02/11/23 *Time: 16:38 Interval history: Patient feeling better this morning. but still has LE swelling, Tolerating p.o. intake. Diuresing well. Afebrile. Comfortable in bed laying with slight elevation of 15 to 20 degrees. Exam Data for Last 24 hours Vital signs and Labs for Last 24 Hours: Temp Pulse Resp BP Pulse Ox O2 Del Method O2 Flow Rate 98.4 F 59 L 18 142/80 H 100 Room Air 1 02/11/23 15:22 02/11/23 15:22 02/11/23 15:22 02/11/23 15:22 02/11/23 15:22 02/11/23 15:37 02/11/23 04:00 Laboratory Results - last 24 hr 02/10/23 17:35: Troponin I < 0.01 02/10/23 17:39: Random Glucose 164 H 02/10/23 17:56: POC Glucose 576 H* 02/10/23 20:04: POC Glucose 84 02/10/23 21:10: POC Glucose 65 L 02/10/23 22:28: POC Glucose 74 02/10/23 23:54: POC Glucose 75 02/11/23 01:12: POC Glucose 73 02/11/23 03:07: POC Glucose 91 02/11/23 05:10: POC Glucose 141 H 02/11/23 07:35: WBC 7.8, RBC 3.74 L, Hgb 11.0 L, Hct 34.8 L, MCV 93.2, MCH 29.5, MCHC 31.6 L, RDW 17.5, Plt Count 224, MPV 9.0, Neut % (Auto) 75.8, Lymph % (Auto) 12.9, [place] % (Auto) 6.7, Eos % (Auto) 3.9, Baso % (Auto) 0.7, Neut # (Auto) 5.9, Lymph # (Auto) 1.0, [place] # (Auto) 0.5, Eos # (Auto) 0.3, Baso # (Auto) 0.1, PT 37.6 H, INR 3.80 H, Sodium 138, Potassium 4.9, Chloride 100, Carbon Dioxide 27, Anion Gap 15.9 H, BUN 46 H, Creatinine 2.50 H, Estimated Creat Clear 46, Estimated GFR 27 L, Est GFR ( Amer) 32 L, Glucose 113 H, Calcium 9.1 02/11/23 10:27: POC Glucose 136 H 02/11/23 15:52: POC Glucose 201 H I & O for Last 24 hours: Intake & Output 02/08/23 02/09/23 02/10/23 02/11/23 23:59 23:59 23:59 23:59 Intake Total 940 / 940 Output Total 200 / 200 1600 / 1600 Balance -200 / -200 -660 / -660 Weight 103.192 kg 103.195 kg Constitutional Constitutional: no acute distress *Routine HEENT Exam Head: Present normocephalic Eye: Present EOMI and PERRL ENT: Present mucous membranes moist *Routine Neck Exam Neck: Present supple; Absent lymphadenopathy *Routine Respiratory Exam Respiratory: Present CTA bilaterally *Routine Cardiovascular Exam Cardiovascular: Present RRR *Routine Abdominal Exam Abdominal: Present soft and normoactive bowel sounds; Absent tenderness *Routine Extremities Exam Extremities: Absent cyanosis or clubbing Comments: has b/l LE edema *Routine Skin Exam Skin: Present warm; Absent rash *Routine Neurological Exam Neurological: Present alert and oriented X3 Assessment and Plan *Assessment and plan (1) Acute exacerbation of CHF (congestive heart failure): Status: Acute Category: Medical Code(s): I50.9 - Heart failure, unspecified (2) Acute hyperkalemia: Status: Acute Category: Medical Code(s): E87.5 - Hyperkalemia (3) CAD (coronary artery disease): Problem Comment: Matthew continues to smoke. Every time I see him he looks a little bit worse. I really do not think he has much time left quite frankly. He has been followed by cardiology for his coronary issues. Status: Chronic Qualifiers: Coronary Disease-Associated Artery/Lesion type: [place] artery [place] vs. transplanted heart: [place] heart Associated angina: without angina Qualified Code(s): I25.10 - Atherosclerotic heart disease of [place] coronary artery without angina pectoris Category: Medical Code(s): I25.10 - Atherosclerotic heart disease of [place] coronary artery without angina pectoris (4) HTN (hypertension): Problem Comment: Blood pressure today was 130/84. His blood pressure tends to run 140-150/80-90 on a regular basis at least here at the clinic. I suggested to them that they get a blood pressure cuff and check his blood pressure at home but they have yet to do this. Status: Chronic Qualifiers: Hypertension type: essential hypertension Qualified Code(s): I10 - Essential (primary) hypertension Category: Medical Code(s): I10
[2023-02-11 20:20] LABS: POC Glucose,Bedside 127 (70-110)
--- NOTE | 2023-02-11 21:14 | PC.NURSE ---
Asked pt if med rec had been completed. Pt states he feels he has been asked about this, but cannot tell RN what medications he takes. Pt states his manages this for him. Unable to verify med rec at this time.
[2023-02-12] VITALS: BP 148/85; PULSE 60; PULSE 77; RESP 17; TEMP 37.2; O2SAT 99
[2023-02-12 04:00] VITALS: BP 130/73; PULSE 60; PULSE 84; RESP 17; TEMP 36.9; O2SAT 98; BMI 32.8
[2023-02-12 06:26] LABS: POC Glucose,Bedside 113 (70-110)
[2023-02-12 07:28] LABS: Basophils % 0.5 % (0.1-2.0); Eosinophils # 0.3 K/mm3 (0.0-0.4); Eosinophils % 2.8 % (0.1-12.0); Hematocrit 36.5 % (42.0-52.0); Hemoglobin 11.3 g/dL (14.1-18.0); Lymphocytes # 0.8 K/mm3 (0.7-4.5); Lymphocytes % 8.4 % (10-50); Mean Corpuscular HGB Conc 31.1 g/dL (31.8-35.4); Mean Corpuscular Hemoglobin 29.2 pg (27.0-31.2); Mean Platelet Volume 8.5 fl (7.4-10.4); Monocytes # 0.5 K/mm3 (0.1-1.0); Monocytes % 5.9 % (1.7-9.3); Neutrophils # 7.4 K/mm3 (1.8-7.8); Neutrophils % 82.3 % (37.0-80.0); Platelet Count 217 K/mm3 (142-424); Red Blood Count 3.89 M/mm3 (4.60-6.20); Red Cell Distribution Width 17.5 % (11.5-17.5)
[2023-02-12 07:41] LABS: Anion Gap 11.3 mEq/L (5-15); Blood Urea Nitrogen 41 mg/dl (9-20); Calcium 9.5 mg/dl (8.4-10.2); Carbon Dioxide 30 mmol/L (22.0-30.0); Chloride 100 mmol/L (98-107); Creatinine Clearance Estimated 49 mL/min (50-200); Estimated Glomerular Filt Rate 29 ml/min (>60); GFR (African American) 35 ML/MIN (>60); Glucose 116 mg/dl (74-100); Potassium 4.3 mmoL/L (3.5-5.1); Sodium 137 mmol/L (136-145)
[2023-02-12 07:43] LABS: INR 2.53 (0.9-1.1); Prothrombin Time 25.7 seconds (10.1-12.5)
[2023-02-12 07:48] VITALS: BP 130/71; PULSE 63; RESP 19; TEMP 36.8; O2SAT 95
[2023-02-12 08:00] VITALS: PULSE 65
[2023-02-12 09:00] VITALS: PULSE 63; O2SAT 95
--- NOTE | 2023-02-12 10:54 | EXP.DC.SUM ---
General Admission date:: 02/10/23 Discharge date: 02/12/23 HPI HPI HPI: Patient is a 57-year-old male with past medical history of CHF hypertension hyperlipidemia PAF, chronic kidney disease who presents to the hospital due to weight gain, shortness of breath. According to patient he also woke up in the middle of the night gasping for air 2 to 3 days ago, he usually sleeps in couch. He has difficulty lying down flat. He also has noted bilateral lower extremity swelling with more than his normal. Patient otherwise denies fever chills nausea vomiting diarrhea constipation dysuria chest pain. Hospital Course Hospital Course Hospital Course: Patient is a 57-year-old male with past medical history of CHF hypertension hyperlipidemia PAF, chronic kidney disease who presents to the hospital due to weight gain, shortness of breath. According to patient he also woke up in the middle of the night gasping for air 2 to 3 days ago, he usually sleeps in couch. He has difficulty lying down flat. He also has noted bilateral lower extremity swelling with more than his normal. Patient otherwise denies fever chills nausea vomiting diarrhea constipation dysuria chest pain. Assessment Bilateral lower extremity swelling, orthopnea, PND likely secondary to acute CHF - improved, encouraged him leg elavation, he denied any exertiona SOB, and was able to lie down flat in bed and sleep well. Acute on chronic CHF - improved Hyperglycemia due to uncontrolled Diabetes mellitus - stable Hyperkalemia - resolved GERD Hypertension PAF CAD stable for discharge and f/u with cardiology as OP in 1 week Exam Data for Last 24 hours Vital signs and Labs for Last 24 Hours: Temp Pulse Resp BP Pulse Ox O2 Del Method O2 Flow Rate 98.3 F 63 19 130/71 95 Room Air 1 02/12/23 07:48 02/12/23 09:00 02/12/23 07:48 02/12/23 07:48 02/12/23 09:00 02/12/23 09:00 02/12/23 04:00 Laboratory Results - last 24 hr 02/11/23 15:52: POC Glucose 201 H 02/11/23 20:10: POC Glucose 127 H 02/12/23 06:01: POC Glucose 113 H 02/12/23 07:08: WBC 9.0, RBC 3.89 L, Hgb 11.3 L, Hct 36.5 L, MCV 94.0, MCH 29.2, MCHC 31.1 L, RDW 17.5, Plt Count 217, MPV 8.5, Neut % (Auto) 82.3 H, Lymph % (Auto) 8.4 L, [place] % (Auto) 5.9, Eos % (Auto) 2.8, Baso % (Auto) 0.5, Neut # (Auto) 7.4, Lymph # (Auto) 0.8, [place] # (Auto) 0.5, Eos # (Auto) 0.3, Baso # (Auto) 0.0, PT 25.7 H, INR 2.53 H, Sodium 137, Potassium 4.3, Chloride 100, Carbon Dioxide 30, Anion Gap 11.3, BUN 41 H, Creatinine 2.30 H, Estimated Creat Clear 49, Estimated GFR 29 L, Est GFR ( Amer) 35 L, Glucose 116 H, Calcium 9.5 I & O for Last 24 hours: Intake & Output 02/09/23 02/10/23 02/11/23 02/12/23 23:59 23:59 23:59 23:59 Intake Total 1410 / 1650 710 / 710 Output Total 200 / 200 3950 / 3950 1250 / 1250 Balance -200 / -200 -2540 / -2300 -540 / -540 Weight 103.192 kg 103.195 kg 100.425 kg Constitutional Constitutional: no acute distress *Routine HEENT Exam Head: Present normocephalic Eye: Present EOMI and PERRL ENT: Present mucous membranes moist *Routine Neck Exam Neck: Present supple; Absent lymphadenopathy *Routine Respiratory Exam Respiratory: Present CTA bilaterally *Routine Cardiovascular Exam Cardiovascular: Present RRR *Routine Abdominal Exam Abdominal: Present soft and normoactive bowel sounds; Absent tenderness *Routine Extremities Exam Extremities: Absent cyanosis or clubbing Comments: has b/l LE edema *Routine Skin Exam Skin: Present warm; Absent rash *Routine Neurological Exam Neurological: Present alert and oriented X3 Results Data Completed and Pending Labs on day of discharge: Labs from last 24 hours 02/12/23 02/12/23 02/11/23 07:08 06:01 20:10 WBC 9.0 RBC 3.89 L Hgb 11.3 L Hct 36.5 L MCV 94.0 MCH 29.2 MCHC 31.1 L RDW 17.5 Plt Count 217 MPV 8.5 Neut % (Auto) 82.3 H Lymph % (Auto) 8.4 L [place] % (Auto) 5.9 Eos % (Auto) 2.8
[2023-02-12 12:00] VITALS: PULSE 60
[2023-02-12 12:05] LABS: POC Glucose,Bedside 164 (70-110)
--- NOTE | 2023-02-14 13:11 | SW/DCPLANNER ---
Follow up phone call w/ this patient: patient stated that he is doing well at home and does not have any needs/questions at this time.
== END 2023-02-12 13:50 | disposition home or self-care (01) ==
LOC: ER 12:43 → 2ND 13:16
PROVIDERS: Admitting Provider Internal Medicine; Emergency Provider Student in an Organized Health Care Education/Training Program; PCP Internal Medicine; Visit Provider Internal Medicine
DX: I50.23 Acute on chronic systolic (congestive) heart failure (principal); I25.10 Atherosclerotic heart disease of native coronary artery without angina pectoris; E87.5 Hyperkalemia; I13.0 Hypertensive heart and chronic kidney disease with heart failure and stage 1 through stage 4 chronic kidney disease, or unspecified chronic kidney disease; E78.2 Mixed hyperlipidemia; E11.65 Type 2 diabetes mellitus with hyperglycemia; Z79.01 Long term (current) use of anticoagulants; Z79.899 Other long term (current) drug therapy; Z79.4 Long term (current) use of insulin; Z95.1 Presence of aortocoronary bypass graft; F17.210 Nicotine dependence, cigarettes, uncomplicated; I48.0 Paroxysmal atrial fibrillation; Z95.5 Presence of coronary angioplasty implant and graft; E11.22 Type 2 diabetes mellitus with diabetic chronic kidney disease; N18.9 Chronic kidney disease, unspecified
CPT/HCPCS: 36415; 71045; 80048; 80053; 82947; 82962; 83735; 83880; 84484; 85025; 85610; 93005; 94618; 99285; G0378

== ENCOUNTER → 2023-02-17 13:13 | Outpatient (CLI) | payer BC, MEDICARE, SELFPAY ==
--- NOTE | 2023-02-17 13:13 | CA_ITS ---
APPROVED REPORT EXAM: Comprehensive 2D, Doppler, and color-flow Echocardiogram Streetcar Starter: JASON Maier, RVS Ht: 5 ft 9 in Wt: 207lbs BSA: 2.10 BP: 160/80 mmHg Indications: Afib, Dilated CM, CAD, AICD, MV ring, CABG, Stent, Smoker, DM, HTN, HLD 2D Dimensions Aortic Root 2.94 cm LA Volume 98.30 mL Left Atrium 4.85 cm LA Volume Index 46.80 mL/m2 (M/F) 16-34 RVID Base (AP4) 5.05 cm (M/F) 2.5-4.1 EF AP4 35.50 % LVOT 2.16 cm (M/F) 1.5-2.5 GL Strain -9.5 % M-Mode Dimensions RVDd 2.85 cm (0.9-2.6) LVDd 6.59 cm (3.5-5.7) Ao Diam 3.23 cm (2.0-3.7) LVDs 5.37 cm (3.5-5.7) IVSd 0.96 cm (0.6-1.1) PWd 0.88 cm (0.6-1.1) EF (Teich) 33.60% EPSs 1.65 cm FS 16.40% EDV (Teich) 210.00 mL TAPSE 1.65 (<1.7) ESV (Teich) 139.50 mL LV Diastology E Decel Time 128 (160-240 msec) E/A Ratio 6.57 MED E' 3.8 (>= 7 cm/sec) MED A' 2.30 cm/s E'/MED E' Ratio 44.76 (<= 14) LAT E' 4.4 (>= 10 cm/sec) LAT A' 2.40 cm/s E/LAT E' Ratio 38.66 (<= 14) Aortic Valve LVOT Max 59.0 (70-110 cm/s) TOMAS Index 0.74 cm2/m2 LVOT VTI 12.18 cm AoV Peak Billy. 146.0 (50-130 cm/s) AO Mean GR. 4.20 (<5 mmHg) AO VTI 28.7 (18-25 cm) TOMAS (VTI) 1.55 (2.5-4.5 cm2) Mitral Valve MV E Max Billy. 170.0 (40-130 cm/s) MV A Velocity 26.0 (40-130 cm/s) E/A Ratio 6.57 MV Decel. Time 128 (160-240 ms) MV Mean Gr. 2.90 (<2mmHg) Pulmonary Valve AR End VMAX 201.0 cm/s Tricuspid Valve TR P. Velocity 282.00 cm/s RAP Estimate 10.00 mmHg RVSP 41.90 mmHg Left Ventricle Left ventricle is mildly dilated (LVEDVi 79 ml/m2). Left ventricular systolic function is severely decreased. There is normal left ventricular wall thickness. There is severe global hypokinesis present there is near akinesis of the inferior, inferoseptal, and inferolateral LV escobar.. Grade 3 diastolic dysfunction is present. LVEF is 20-25%. Right Ventricle Right ventricle is moderately dilated. Right ventricle is moderately hypokinetic. There is a device lead in the right ventricle. Atria The left atrium is moderately dilated. Right atrium is moderately dilated. There is no Doppler evidence of interatrial shunt. Aortic Valve The aortic valve is mildly thickened. There is no aortic valvular stenosis. Trace aortic regurgitation. Mitral Valve s/p annuloplasty ring. No evidence of mitral valve stenosis. Mean MV gradient 2 mmHg (HR 76 bpm). Mild mitral regurgitation. Tricuspid Valve The tricuspid valve leaflets are thin and pliable. Moderate to severe tricuspid regurgitation. RVSP is 30-35 mmHg. There is hepatic vein systolic flow reversal, suggestive of significant TR. Pulmonic Valve The pulmonary valve is normal in structure. Mild pulmonic regurgitation. Great Vessels The aortic root is normal in size. The ascending aorta is normal in size. IVC is normal in size and collapses >50% with inspiration. Pericardium There is no pericardial effusion. Other Information Study Quality: Fair Conclusion Mild LV dilation (LVEDVi 79 ml/m2) with severe reduction in LV systolic function (LVEF 20-25%). Grade 3 diastolic dysfunction. Moderate RV dilation with moderate reduction in RV systolic function. s/p MV annuloplasty ring. Mild MR. Moderate to severe TR. RVSP 30-35 mmHg. Compared to prior study from 12/2022, the severity of TR and RV dilation is now worse. The severity of LV dilation is now improved. Electronically signed by : Cherelle Tarango MD 02/21/2023 00:01:08
[2023-02-17 13:36] LABS: PHA INR Fingerstick 3.1 (0.9-1.1)
== END ==
LOC: RT 13:13
PROVIDERS: PCP Internal Medicine; Visit Provider Internal Medicine
DX: I25.10 Atherosclerotic heart disease of native coronary artery without angina pectoris (principal); I48.0 Paroxysmal atrial fibrillation; I50.20 Unspecified systolic (congestive) heart failure; Z87.891 Personal history of nicotine dependence
CPT/HCPCS: 85610; 93306; 99211; G0463

== ENCOUNTER 2023-02-23 09:56 | Emergency (ER) | payer MEDICARE, SELFPAY ==
[2023-02-23 09:58] VITALS: BP 140/67; PULSE 69; RESP 20; TEMP 36.6; O2SAT 98; BMI 34.0
--- NOTE | 2023-02-23 10:02 | ECG_ITS ---
APPROVED REPORT Exam: Resting ECG HR:68 bpm ECG Measurements Heart Rate 68 AXES NM 233 P 90 QRSd 150 QRS -73 QT 470 T 73 QTc 488 Conclusion SINUS RHYTHM WITH FIRST DEGREE AV BLOCK INTRAVENTRICULAR CONDUCTION DELAY [130+ ms QRS DURATION] ABNORMAL ECG UNCONFIRMED REPORT Electronically signed by : Jarod Salter MD 02/23/2023 20:31:01
--- NOTE | 2023-02-23 10:21 | PC.NURSE ---
Dr. Castaneda at [facility] for pt eval
--- NOTE | 2023-02-23 10:25 | CT_ITS ---
FINAL REPORT CLINICAL HISTORY: unable to swallow COMPARISON: 06/04/2022 FINDINGS: Axial CT images of the chest were obtained with contrast. Coronal reformatted images were also obtained. This study was performed with techniques to keep radiation doses as low as reasonably achievable, (ALARA). Individualized dose reduction techniques using automated exposure control or adjustment of mA and/or KV according to the patient''''s size were employed. There are postoperative changes for median sternotomy. Pacer is identified. There are small borderline sized mediastinal nodes. There is cardiomegaly. No axillary mass or adenopathy is identified. There is a 4 mm right upper lobe nodule well seen on image 20. Several calcified granulomas are identified. Limited images of the upper abdomen reveal a small to moderate amount of ascites. IMPRESSION: Right upper lobe nodule. Recommend chest CT with contrast in 6-12 months. Small to moderate ascites. Reviewed, Interpreted and Dictated by Jorge Ann III, MD Transcribed by Maryellen Minor Authenticated and [facility]
--- NOTE | 2023-02-23 10:25 | CT_ITS ---
FINAL REPORT TECHNIQUE: Thin section axial CT images were obtained through the neck after intravenous contrast administration. Coronal and sagittal reformats were also obtained. This study was performed with techniques to keep radiation doses as low as reasonably achievable (ALARA). Individualized dose reduction techniques using automated exposure control or adjustment of mA and/or kV according to the patient''s size were employed. CLINICAL HISTORY: unable to swallow FINDINGS: Motion artifact on many of the images decreases the sensitivity. The nasopharynx, oropharynx, hypopharynx and larynx are unremarkable. There is no mass or adenopathy. The thyroid gland is unremarkable. The visualized sinuses are clear. There is severe bilateral carotid artery calcification with at least moderate proximal ICA stenosis. There is no acute osseous abnormality. IMPRESSION: At least moderate proximal ICA stenosis bilaterally. Reviewed, Interpreted and Dictated by Jorge Ann III, MD Transcribed by Maryellen Minor Authenticated and [facility]
--- NOTE | 2023-02-23 10:26 | ED_ITS ---
Discharge Plan Disposition Patient Disposition: Home, Self-Care Prescriptions Prescriptions: No Action bumetanide 1 mg tablet 1 mg PO BIDL 30 Days Qty: 60 0RF spironolactone 25 mg tablet 25 mg PO DAILY 60 Days Qty: 60 2RF Entresto 97-103 mg tablet See Rx Instructions .ROUTE .COMPLEX Qty: 180 1RF Dose Instruction: Take 1 tablet by mouth twice daily Rx Instructions: Take 1 tablet by mouth twice daily omeprazole 40 mg capsule,delayed release(DR/EC) 40 mg PO DAILY Trulicity 1.5 mg/0.5 mL pen injector 1.5 mg SQ WEEKLY albuterol sulfate 90 mcg/actuation HFA aerosol inhaler 2 puff inhalation QIDP PRN (Reason: shortness of breath or wheezing) fluticasone propionate 50 mcg/actuation [place],Suspension 1 spray INTRANASAL DAILY Rx Instructions: administer into each nostril bisoprolol fumarate 5 mg tablet 5 mg PO DAILY atorvastatin 40 mg tablet 80 mg PO HS Patient Comments: TAKE 2 TABLETS BY MOUTH AT BEDTIME NIGHTLY FOR CHOLESTEROL warfarin 2.5 mg Tablet 1.25 mg PO MOFR warfarin 2.5 mg Tablet 2.5 mg PO SUTUWETHSA amiodarone 200 mg tablet 200 mg PO BID clopidogrel 75 mg tablet 75 mg PO DAILY tramadol 50 mg tablet 50 mg PO Q8HP PRN (Reason: pain) metformin 1,000 mg tablet 1,000 mg PO BIDWMEAL nitroglycerin 0.4 mg tablet, sublingual 0.4 mg sublingual Q5MINP PRN (Reason: chest pain) Rx Instructions: do not exceed 3 doses per episode bumetanide 1 mg tablet 1 mg PO MOTH@1600 tizanidine 2 mg capsule 2 mg PO TIDP PRN (Reason: muscle spasticity) mecobalamin (vitamin B12) 1,000 mcg tablet,chewable 1,000 mcg PO DAILY bupropion HCl 150 mg tablet sustained-release 12 hr 150 mg PO BID Patient Comments: Take 1 tablet by mouth twice daily insulin glargine [Lantus Solostar U-100 Insulin] 100 unit/mL (3 mL) insulin pen 25 unit SQ HS Referrals Follow up/Referrals: Mal Barfield DO [Primary Care Provider] - See instructions Activity Restrictions/Add. Instructions Additional Instructions/Restrictions: At this time it was felt you are safe to be discharged home. If new or worsen ing symptoms please do not hesitate to return the emergency department. Please follow-up with surgery clinic on Monday03/01/23 at 2:[address] Story for continued evaluation and possible endoscopic evaluation. Please drink nutrition shakes if you are unable to tolerate solid foods. Clinical Impressions Clinical Impression: Dysphagia Discharge ED Provider: Wesly Castaneda General Adult HPI General Chief complaint: Recheck/Abnormal Lab/Rx Stated complaint: soa, difficulty swallowing Time Seen by Provider: 02/23/23 10:16 Mode of Arrival: Wheelchair Source of Information: Patient Limitations: No Limitations Description of Symptoms (Recalled from ER Triage Doc. by RN): Patient reports he has been feeling like he has a knot in throat for the last few months was supposed to see ENT but has not had an appointment yet. Patient states he is having trouble swallowing. Denies pain at this time. History of Present Illness HPI narrative: Patient is a 57-year-old male with past medical history of CAD status post stenting in pacemaker placement, hypertension, hyperlipidemia, insulin-dependent diabetes, previous multi pack-year smoking history, previous multi pint year drinking history who presents emergency department for evaluation of difficulty swallowing. Patient states he has had progressive difficulty swallowing to solids and then subsequently liquids over the last 3 months. This morning he awoke choking on his own saliva. He attempted to take a sip of water which was unable to be swallowed. Due to this he presents here for continued evaluation. Denies pain. He states that he was supposed to be contacted for follow-up with an ear nose and throat appointment however he has not been contacted. Related Data Home Medications Medication Instructions Recorded Confirmed omeprazole 40 mg capsule,delayed 40 mg PO DAILY Acid reflux 03/21/22 02/21/23 release dulaglutide 1.5 mg/0.5 mL 1.5 mg SQ WEEKLY Diabetes 06/04/22 02/21/23 subcutaneous pen injector ([facility]) albuterol sulfate 90 mcg/actuation 2 puff inhalation QIDP PRN 06/05/22 02/21/23 aerosol inhaler shortness of breath or wheezing fluticasone propionate 50 1 spray intranasal DAILY Allergy 06/07/22 02/21/23 mcg/actuation nasal Symptoms spray,suspension bisoprolol fumarate 5 mg tablet 5 mg PO DAILY High Blood Pressure 06/17/22 02/21/23 bupropion HCl 150 mg tablet,12 hr 150 mg PO BID mood 01/10/23 02/21/23 sustained-release insulin glargine 100 unit/mL (3 25 unit SQ HS Diabetes 01/10/23 02/21/23 mL) subcutaneous pen (Lantus Solostar U-100 Insulin) atorvastatin 40 mg tablet 80 mg PO HS Cholesterol 01/24/23 02/21/23 amiodarone 200 mg tablet 200 mg PO BID Heart Rhythm 02/10/23 02/21/23 bumetanide 1 mg tablet 1 mg PO MOTH@1600 Fluid 02/10/23 02/21/23 clopidogrel 75 mg tablet 75 mg PO DAILY Blood Thinner 02/10/23 02/21/23 mecobalamin (vitamin B12) 1,000 1,000 mcg PO DAILY Supplement 02/10/23 02/21/23 mcg chewable tablet metformin 1,000 mg tablet 1,000 mg PO BIDWMEAL Diabetes 02/10/23 02/21/23 nitroglycerin 0.4 mg sublingual 0.4 mg sublingual Q5MINP PRN chest 02/10/23 02/21/23 tablet pain tizanidine 2 mg capsule 2 mg PO TIDP PRN muscle spasticity 02/10/23 02/21/23 tramadol 50 mg tablet 50 mg PO Q8HP PRN pain 02/10/23 02/21/23 warfarin 2.5 mg tablet 1.25 mg PO MOFR Blood Thinner 02/10/23 02/21/23 warfarin 2.5 mg tablet 2.5 mg PO SUTUWETHSA LEFT 02/10/23 02/21/23 VENTRICLE THROMBUS Previous Rx's Medication Instructions Recorded sacubitril 97 mg-valsartan 103 mg See Rx Instructions .Route 02/15/23 tablet (Entresto) .COMPLEX #180 tabs bumetanide 1 mg tablet 1 mg PO BIDL 30 days #60 tabs 02/21/23 spironolactone 25 mg tablet 25 mg PO DAILY Fluid 60 days #60 02/21/23 tabs Allergies Allergy/AdvReac Type Severity Reaction Status Date / Time No Known Allergies Allergy Verified 02/21/23 10:58 [facility] Disclaimer: The information contained in this section may have been updated after the patient was seen, as this information can be updated by other users. Medical History Acute exacerbation of CHF (congestive heart failure) Acute exacerbation of CHF (congestive heart failure) Acute hyperkalemia Arthritis Asthma CAD (coronary artery disease) Matthew continues to smoke. Every time I see him he looks a little bit worse. I really do not think he has much time left quite frankly. He has been followed by cardiology for his coronary issues. Cardiac volume overload Chronic kidney disease, stage 3a Been fairly stable so follow for now. Coronary artery disease Deviated nasal septum Diabetes Diabetes mellitus, type 2 Dizziness Dysphagia Patient is having feelings of dysphagia both with liquids and solids. This seems to happen with just about everything he eats. Will do an MRI of the neck and see if there is anything that shows. A swallow study would be worthwhile to evaluate for function but lets see first whether there are any anatomic issues that need to be addressed. Dyspnea Esophagitis GERD (gastroesophageal reflux disease) Globus sensation H/O blood clots Heart failure with reduced ejection fraction History of heart attack History of stroke HLD (hyperlipidemia) Patient has been in the ER and had multiple visits to the hospital. We did get a lipid panel on 02 February which revealed a triglycerides of 83 total cholesterol 115 LDL of 69 and an HDL of 35. Patient is on maximal statin therapy at this time. Hoarseness HTN (hypertension) Blood pressure today was 130/84. His blood pressure tends to run 140-150/80-90 on a regular basis at least here at the clinic. I suggested to them that they get a blood pressure cuff and check his blood pressure at home but they have yet to do this. Hyperglycemia due to diabetes mellitus Hypertension Lymphedema Examination today does reveal lymphedema bilaterally. Will send him to the lymphedema clinic. Had a discussion with him about proper footcare and he is not to walk barefoot anywhere. Neuropathy NYHA class 3 heart failure with reduced ejection fraction All of Matthew cardiovascular issues are being followed by Dr. Jolly and his team at [facility]. PAF (paroxysmal atrial fibrillation) Smoker Systolic heart failure Tobacco dependence syndrome Typical angina Surgical History History of heart artery stent S/P CABG x 4 Family History Other Cancer Coronary artery disease Diabetes Hypertension Kidney disease Stroke Social History (Updated 02/21/23 @ 11:00 by TYRONE Salazar) Smoking Status: Former smoker tobacco type: cigarettes packs per day: 1 second hand exposure: Yes alcohol intake: never counseling provided: none substance use type: denies use current occupational status: other Travel in the last 8 weeks: None household members: family housing: house ROS Obtained: Yes Systems reviewed as appropriate & no additional complaints except as documented Physical Exam General General appearance: alert and in no apparent distress Head Head exam: atraumatic and normocephalic Eye Eye exam: Present PERRL and EOMI ENT ENT exam: Present mucous membranes moist Neck Neck exam: Present normal inspection Chest Chest inspection: Present normal inspection and symmetric chest wall rise Respiratory Respiratory exam: Present normal lung sounds bilaterally; Absent respiratory distress Cardiovascular Cardiovascular exam: Present regular rate and normal rhythm Abdominal Exam Abdominal exam: Present soft; Absent tenderness Extremities Exam Extremities exam: Present normal inspection Neurological Exam Neurological exam: Present alert Psychiatric Psychiatric exam: Present normal affect Skin Skin exam: Present warm and dry Medical Decision Making Teddy Inquiry Pt receiving controlled substance: No Vital Signs: 02/23/23 09:58 02/23/23 11:52 02/23/23 12:30 Temperature 97.9 F Temperature Source Oral Pulse Rate 66 65 Pulse Rate [Right] 69 Respiratory Rate 20 Blood Pressure 151/81 H 154/93 H Blood Pressure [Right Arm] 140/67 Blood Pressure Mean [Right Arm] 91 Blood Pressure Source [Right Arm] Automatic Cuff 02 Sat by Pulse Oximetry 98 96 99 Oxygen Delivery Method Room Air Room Air Room Air 02/23/23 13:00 02/23/23 13:30 Temperature Temperature Source Pulse Rate 65 65 Pulse Rate [Right] Respiratory Rate Blood Pressure 159/87 H 161/93 H Blood Pressure [Right Arm] Blood Pressure Mean [Right Arm] Blood Pressure Source [Right Arm] 02 Sat by Pulse Oximetry 98 96 Oxygen Delivery Method Room Air Room Air Lab Data Lab Results 02/23/23 10:16: WBC 7.9, RBC 3.90 L, Hgb 11.4 L, Hct 37.0 L, MCV 94.8 H, MCH 29.2, MCHC 30.8 L, RDW 17.3, Plt Count 260, MPV 8.0, Neut % (Auto) 77.3, Lymph % (Auto) 12.3, Linn % (Auto) 6.0, Eos % (Auto) 3.8, Baso % (Auto) 0.7, Neut # (Auto) 6.1, Lymph # (Auto) 1.0, Linn # (Auto) 0.5, Eos # (Auto) 0.3, Baso # (Auto) 0.1, PT 31.8 H, INR 3.18 H, Sodium 140, Potassium 4.5, Chloride 102, Carbon Dioxide 27, Anion Gap 15.5 H, BUN 34 H, Creatinine 2.00 H, Estimated Creat Clear 59, Estimated GFR 34 L, Est GFR ( Amer) 42 L, Glucose 160 H, Calcium 8.9, Total Bilirubin 0.9, AST 36, ALT 34, Alkaline Phosphatase 142 H, Total Protein 7.2, Albumin 4.1, Globulin 3.1, Albumin/Globulin Ratio 1.3 02/23/23 10:16 02/23/23 10:16 Orders (Tests/Meds): ED MEDICATIONS Generic Name Dose Route Start Last Admin Trade Name Freq PRN Reason Stop Dose Admin Sodium Chloride 10 ml 02/23/23 10:22 Sodium Chloride 0.9% 10ml Flush Syringe IV 03/25/23 10:21 NEEDED PRN Maintain IV Site Discontinued Medications Generic Name Dose Route Start Last Admin Trade Name Freq PRN Reason Stop Dose Admin Lactated Ringer's 500 mls @ 999 mls/hr 02/23/23 11:24 02/23/23 11:26 Lactated Ringer's 500ml IV 02/23/23 11:54 999 mls/hr .Q31M ONE Administration Iopamidol 100 ml 02/23/23 12:07 02/23/23 12:08 Iopamidol-370 (76%);100ml Bottle IV 02/23/23 12:08 100 ml ONCE ONE Administration Sodium Chloride 10 ml 02/23/23 12:07 02/23/23 12:08 Sodium Chloride 0.9% 10ml Syr (Rad Only) IV 02/23/23 12:08 10 ml ONCE ONE Administration ORDERS Category Date Time Status CT chest w con Stat Cat Scan 02/23/23 10:[address] soft tissue neck w con Stat Cat Scan 02/23/23 10:25 Completed CBC w/Auto Diff [Complete Blood Count Auto Diff] Stat Lab 02/23/23 10:16 Completed CMP [Comprehensive Metabolic Panel] Stat Lab 02/23/23 10:16 Completed INR [Prothrombin Time INR] Stat Lab 02/23/23 10:16 Completed ECG initial Besson Routine Y 02/23/23 10:02 Completed ECG Data Tracing #1: Independently interpreted by me, rate is 68, rhythm is regular, axis is leftward deviated, no ST elevation in anatomical contiguous leads, QTc 488. Medical Decision Narrative: In summary patient is a 57-year-old male with past medical history described above presents emergency department for evaluation of dysphagia. Patient is hemodynamically stable nontoxic-appearing upon arrival, afebrile. I have high index of suspicion for malignancy. Differential also includes GERD, Salomon's esophagus, among others. Initial workup will be conducted with hematologic labs, CT neck, chest with IV contrast. Workup reviewed by me, hematologic labs are nonactionable, stable anemia, stable CKD, no critical electrolyte abnormalities. CT imaging unremarkable for right upper lobe nodule for which outpatient follow-up was recommended, CT neck shows moderate proximal ICA stenosis for which patient is not having symptoms clinically. These findings were relayed to patient at bedside he underwent p.o. trial with a shake that was successful. Given this patient is appropriate for outpatient management which was facilitated for next week. Patient was given return precautions. Critical Care Critical Care Time Critical Care Time: No
[2023-02-23 10:34] LABS: Basophils # 0.1 K/mm3 (0-0.2); Basophils % 0.7 % (0.1-2.0); Eosinophils # 0.3 K/mm3 (0.0-0.4); Eosinophils % 3.8 % (0.1-12.0); Hemoglobin 11.4 g/dL (14.1-18.0); Lymphocytes % 12.3 % (10-50); Mean Corpuscular HGB Conc 30.8 g/dL (31.8-35.4); Mean Corpuscular Hemoglobin 29.2 pg (27.0-31.2); Mean Corpuscular Volume 94.8 fl (80-94); Monocytes # 0.5 K/mm3 (0.1-1.0); Neutrophils # 6.1 K/mm3 (1.8-7.8); Neutrophils % 77.3 % (37.0-80.0); Platelet Count 260 K/mm3 (142-424); Red Cell Distribution Width 17.3 % (11.5-17.5); White Blood Count 7.9 K/mm3 (4.8-10.8)
[2023-02-23 10:35] LABS: Chloride 102 mmol/L (98-107); Potassium 4.5 mmoL/L (3.5-5.1); Sodium 140 mmol/L (136-145)
[2023-02-23 10:38] LABS: Alanine Aminotransferase 34 U/L (12-78); Albumin Level 4.1 g/dl (3.5-5.0); Albumin/Globulin Ratio 1.3 (1.1-1.8); Alkaline Phosphatase 142 U/L (38-126); Anion Gap 15.5 mEq/L (5-15); Aspartate Amino Transferase 36 U/L (17-59); Bilirubin,Total 0.9 mg/dl (0.2-1.3); Blood Urea Nitrogen 34 mg/dl (9-20); Calcium 8.9 mg/dl (8.4-10.2); Carbon Dioxide 27 mmol/L (22.0-30.0); Creatinine Clearance Estimated 59 mL/min (50-200); Estimated Glomerular Filt Rate 34 ml/min (>60); GFR (African American) 42 ML/MIN (>60); Globulin 3.1 g/dL (1.3-3.2); Glucose 160 mg/dl (74-100); Total Protein,Serum 7.2 g/dl (6.3-8.2)
[2023-02-23] MEDS: RINGERS SOLUTION,LACTATED 500 ML 999 ML IV (11:26)
[2023-02-23 11:44] LABS: INR 3.18 (0.9-1.1); Prothrombin Time 31.8 seconds (10.1-12.5)
--- NOTE | 2023-02-23 11:50 | PC.NURSE ---
Rounded on pt. No needs voiced. Call light within reach.
[2023-02-23 11:52] VITALS: BP 151/81; PULSE 66; O2SAT 96
--- NOTE | 2023-02-23 12:02 | PC.NURSE ---
Patient to RAD
[2023-02-23] MEDS: SODIUM CHLORIDE 0.9% 10ML SYR (RAD ONLY) 10 ML IV (12:08)
[2023-02-23] MEDS: IOPAMIDOL-370 (76%);100ML BOTTLE 100 ML IV (12:08)
--- NOTE | 2023-02-23 12:14 | PC.NURSE ---
Pt returned to room from RAD
[2023-02-23 12:30] VITALS: BP 154/93; PULSE 65; O2SAT 99
[2023-02-23 13:00] VITALS: BP 159/87; PULSE 65; O2SAT 98
[2023-02-23 13:30] VITALS: BP 161/93; PULSE 65; O2SAT 96
--- NOTE | 2023-02-23 13:30 | PC.NURSE ---
Follow up appointment scheduled with Dr Story.
[2023-02-23 14:04] VITALS: BP 141/91; PULSE 75; RESP 18; TEMP 36.6; O2SAT 97
== END 2023-02-23 14:05 | disposition home or self-care (01) ==
PROVIDERS: Emergency Provider Emergency Medicine; PCP Internal Medicine
DX: R13.10 Dysphagia, unspecified (principal); I25.10 Atherosclerotic heart disease of native coronary artery without angina pectoris; E11.9 Type 2 diabetes mellitus without complications; I13.0 Hypertensive heart and chronic kidney disease with heart failure and stage 1 through stage 4 chronic kidney disease, or unspecified chronic kidney disease; E78.5 Hyperlipidemia, unspecified; I50.20 Unspecified systolic (congestive) heart failure
CPT/HCPCS: 70491; 71260; 80053; 85025; 85610; 93005; 99285; Q9967

== ENCOUNTER 2023-03-03 13:43 | Outpatient (CLI) | payer MEDICARE, SELFPAY | END 2023-03-03 23:59 | LOC: ACC 13:44 | PROVIDERS: PCP Internal Medicine; Visit Provider Physician Assistant | DX: Z79.01 Long term (current) use of anticoagulants (principal) | CPT/HCPCS: 85610; 99211; G0463 ==

== ENCOUNTER 2023-03-03 14:13 | Emergency (ER) | payer MEDICARE, SELFPAY ==
[2023-03-03 14:14] VITALS: BP 123/67; PULSE 61; RESP 18; TEMP 36.9; O2SAT 95; BMI 34.0
[2023-03-03 14:57] LABS: Basophils # 0.1 K/mm3 (0-0.2); Basophils % 1.2 % (0.1-2.0); Eosinophils # 0.2 K/mm3 (0.0-0.4); Eosinophils % 2.4 % (0.1-12.0); Hematocrit 36.4 % (42.0-52.0); Hemoglobin 11.4 g/dL (14.1-18.0); Lymphocytes # 1.1 K/mm3 (0.7-4.5); Lymphocytes % 12.9 % (10-50); Mean Corpuscular HGB Conc 31.2 g/dL (31.8-35.4); Mean Corpuscular Hemoglobin 29.2 pg (27.0-31.2); Mean Corpuscular Volume 93.4 fl (80-94); Mean Platelet Volume 8.3 fl (7.4-10.4); Monocytes # 0.8 K/mm3 (0.1-1.0); Monocytes % 8.5 % (1.7-9.3); Neutrophils # 6.6 K/mm3 (1.8-7.8); Platelet Count 292 K/mm3 (142-424); Red Cell Distribution Width 17.2 % (11.5-17.5); White Blood Count 8.8 K/mm3 (4.8-10.8)
[2023-03-03 15:00] LABS: Chloride 104 mmol/L (98-107); Potassium 4.9 mmoL/L (3.5-5.1); Sodium 139 mmol/L (136-145)
[2023-03-03 15:02] LABS: Blood Urea Nitrogen 31 mg/dl (9-20); Creatinine Clearance Estimated 59 mL/min (50-200); Estimated Glomerular Filt Rate 34 ml/min (>60); GFR (African American) 42 ML/MIN (>60)
[2023-03-03 15:03] LABS: Alanine Aminotransferase 37 U/L (12-78); Albumin Level 4.1 g/dl (3.5-5.0); Albumin/Globulin Ratio 1.2 (1.1-1.8); Alkaline Phosphatase 144 U/L (38-126); Anion Gap 14.9 mEq/L (5-15); Aspartate Amino Transferase 40 U/L (17-59); Carbon Dioxide 25 mmol/L (22.0-30.0); Globulin 3.5 g/dL (1.3-3.2); Total Protein,Serum 7.6 g/dl (6.3-8.2)
[2023-03-03 15:04] LABS: Calcium 9.6 mg/dl (8.4-10.2); Glucose 123 mg/dl (74-100)
--- NOTE | 2023-03-03 15:09 | ED_ITS ---
Discharge Plan Disposition Patient Disposition: Home, Self-Care Chief Complaint: Skin/Abscess/Foreign Body Prescriptions Prescriptions: No Action bumetanide 1 mg tablet 1 mg PO BIDL 30 Days Qty: 60 0RF spironolactone 25 mg tablet 25 mg PO DAILY 60 Days Qty: 60 2RF Entresto 97-103 mg tablet See Rx Instructions .ROUTE .COMPLEX Qty: 180 1RF Dose Instruction: Take 1 tablet by mouth twice daily Rx Instructions: Take 1 tablet by mouth twice daily omeprazole 40 mg capsule,delayed release(DR/EC) 40 mg PO DAILY Trulicity 1.5 mg/0.5 mL pen injector 1.5 mg SQ WEEKLY albuterol sulfate 90 mcg/actuation HFA aerosol inhaler 2 puff inhalation QIDP PRN (Reason: shortness of breath or wheezing) fluticasone propionate 50 mcg/actuation [place],Suspension 1 spray INTRANASAL DAILY Rx Instructions: administer into each nostril bisoprolol fumarate 5 mg tablet 5 mg PO DAILY atorvastatin 40 mg tablet 80 mg PO HS Patient Comments: TAKE 2 TABLETS BY MOUTH AT BEDTIME NIGHTLY FOR CHOLESTEROL warfarin 2.5 mg Tablet 1.25 mg PO MOFR warfarin 2.5 mg Tablet 2.5 mg PO SUTUWETHSA amiodarone 200 mg tablet 200 mg PO BID clopidogrel 75 mg tablet 75 mg PO DAILY tramadol 50 mg tablet 50 mg PO Q8HP PRN (Reason: pain) metformin 1,000 mg tablet 1,000 mg PO BIDWMEAL nitroglycerin 0.4 mg tablet, sublingual 0.4 mg sublingual Q5MINP PRN (Reason: chest pain) Rx Instructions: do not exceed 3 doses per episode bumetanide 1 mg tablet 1 mg PO MOTH@1600 tizanidine 2 mg capsule 2 mg PO TIDP PRN (Reason: muscle spasticity) mecobalamin (vitamin B12) 1,000 mcg tablet,chewable 1,000 mcg PO DAILY bupropion HCl 150 mg tablet sustained-release 12 hr 150 mg PO BID Patient Comments: Take 1 tablet by mouth twice daily insulin glargine [Lantus Solostar U-100 Insulin] 100 unit/mL (3 mL) insulin pen 25 unit SQ HS Referrals Follow up/Referrals: Mal Barfield DO [Primary Care Provider] - See instructions Activity Restrictions/Add. Instructions Additional Instructions/Restrictions: At this time it was felt you are safe to be discharged home. If new or worsening symptoms please do not hesitate to return the emergency department. Please apply bacitracin to your open wounds twice a day, do not use Neosporin. Please take an extra dose of your Bumex for the next 2 days. Please follow-up with the lymphedema clinic as soon as you are able as compression stockings and wound care are imperative to resolution of this problem. Clinical Impressions Clinical Impression: Bilateral edema of lower extremity, Open wound, lower leg Discharge ED Provider: Landon Choi General Adult HPI General Chief complaint: Skin/Abscess/Foreign Body Stated complaint: poss infction L leg, refer from coumadin clinic Time Seen by Provider: 03/03/23 14:34 Mode of Arrival: Ambulatory Source of Information: Patient Limitations: No Limitations Description of Symptoms (Recalled from ER Triage Doc. by RN): pt reports bilateral lower extremity swelling and open sores, states the places start out as blisters that bust open, states it has been like this for a few months but has gotten worse in the last week, also reports shortness of breath this am but denies sob at this time History of Present Illness HPI narrative: Patient is a 57-year-old male with past medical history of ACS, hypertension, hyperlipidemia, lymphedema, advanced heart failure on Bumex who presents emergency department for bilateral lower extremity swelling. Onset was chronic, over the last few months. Patient denies current shortness of breath or chest pain. Over the last week he has had worsening swelling of his bilateral lower extremities with blisters over his left daigle. He contacted PCP who referred him here for continued evaluation. Patient also states that his glucometer and glucose strips have been unable to be refilled secondary to not be covered by insurance. Related Data Home Medications Medication Instructions Recorded Confirmed omeprazole 40 mg capsule,delayed 40 mg PO DAILY Acid reflux 03/21/22 03/01/23 release dulaglutide 1.5 mg/0.5 mL 1.5 mg SQ WEEKLY Diabetes 06/04/22 03/01/23 subcutaneous pen injector ([facility]) albuterol sulfate 90 mcg/actuation 2 puff inhalation QIDP PRN 06/05/22 03/01/23 aerosol inhaler shortness of breath or wheezing fluticasone propionate 50 1 spray intranasal DAILY Allergy 04/18/23 01/10/24 mcg/actuation nasal Symptoms spray,suspension bisoprolol fumarate 5 mg tablet 5 mg PO DAILY High Blood Pressure 06/17/22 03/01/23 bupropion HCl 150 mg tablet,12 hr 150 mg PO BID mood 01/10/23 03/01/23 sustained-release insulin glargine 100 unit/mL (3 25 unit SQ HS Diabetes 01/10/23 03/01/23 mL) subcutaneous pen (Lantus Solostar U-100 Insulin) atorvastatin 40 mg tablet 80 mg PO HS Cholesterol 01/24/23 03/01/23 amiodarone 200 mg tablet 200 mg PO BID Heart Rhythm 02/10/23 03/01/23 bumetanide 1 mg tablet 1 mg PO MOTH@1600 Fluid 02/10/23 03/01/23 clopidogrel 75 mg tablet 75 mg PO DAILY Blood Thinner 02/10/23 03/01/23 mecobalamin (vitamin B12) 1,000 1,000 mcg PO DAILY Supplement 02/10/23 03/01/23 mcg chewable tablet metformin 1,000 mg tablet 1,000 mg PO BIDWMEAL Diabetes 02/10/23 03/01/23 nitroglycerin 0.4 mg sublingual 0.4 mg sublingual Q5MINP PRN chest 02/10/23 03/01/23 tablet pain tizanidine 2 mg capsule 2 mg PO TIDP PRN muscle spasticity 02/10/23 03/01/23 tramadol 50 mg tablet 50 mg PO Q8HP PRN pain 02/10/23 03/01/23 warfarin 2.5 mg tablet 1.25 mg PO MOFR Blood Thinner 02/10/23 03/01/23 warfarin 2.5 mg tablet 2.5 mg PO SUTUWETHSA LEFT 02/10/23 03/01/23 VENTRICLE THROMBUS Previous Rx's Medication Instructions Recorded sacubitril 97 mg-valsartan 103 mg See Rx Instructions .Route 02/15/23 tablet (Entresto) .COMPLEX #180 tabs bumetanide 1 mg tablet 1 mg PO BIDL 30 days #60 tabs 02/21/23 spironolactone 25 mg tablet 25 mg PO DAILY Fluid 60 days #60 02/21/23 tabs Allergies Allergy/AdvReac Type Severity Reaction Status Date / Time No Known Allergies Allergy Verified 03/03/23 14:31 [facility] Disclaimer: The information contained in this section may have been updated after the patient was seen, as this information can be updated by other users. Medical History Acute exacerbation of CHF (congestive heart failure) Acute exacerbation of CHF (congestive heart failure) Acute hyperkalemia Arthritis Asthma CAD (coronary artery disease) Matthew continues to smoke. Every time I see him he looks a little bit worse. I really do not think he has much time left quite frankly. He has been followed by cardiology for his coronary issues. Cardiac volume overload Chronic kidney disease, stage 3a Been fairly stable so follow for now. Coronary artery disease Deviated nasal septum Diabetes Diabetes mellitus, type 2 Dizziness Dysphagia Patient is having feelings of dysphagia both with liquids and solids. This seems to happen with just about everything he eats. Will do an MRI of the neck and see if there is anything that shows. A swallow study would be wo rthwhile to evaluate for function but lets see first whether there are any anatomic issues that need to be addressed. Dyspnea Esophagitis GERD (gastroesophageal reflux disease) Globus sensation H/O blood clots Heart failure with reduced ejection fraction History of heart attack History of stroke HLD (hyperlipidemia) Patient has been in the ER and had multiple visits to the hospital. We did get a lipid panel on 02 February which revealed a triglycerides of 83 total cholesterol 115 LDL of 69 and an HDL of 35. Patient is on maximal statin therapy at this time. Hoarseness HTN (hypertension) Blood pressure today was 130/84. His blood pressure tends to run 140-150/80-90 on a regular basis at least here at the clinic. I suggested to them that they get a blood pressure cuff and check his blood pressure at home but they have yet to do this. Hyperglycemia due to diabetes mellitus Hypertension Lymphedema Examination today does reveal lymphedema bilaterally. Will send him to the lymphedema clinic. Had a discussion with him about proper footcare and he is not to walk barefoot anywhere. Neuropathy NYHA class 3 heart failure with reduced ejection fraction All of Matthew cardiovascular issues are being followed by Dr. Jolly and his team at [facility]. PAF (paroxysmal atrial fibrillation) Smoker Systolic heart failure Tobacco dependence syndrome Typical angina Surgical History History of heart artery stent S/P CABG (coronary artery bypass graft) S/P CABG x 4 Family History Other Cancer Coronary artery disease Diabetes Hypertension Kidney disease Stroke Social History Smoking Status: Never smoker second hand exposure: Yes alcohol intake: never counseling provided: none substance use type: denies use current occupational status: other Travel in the last 8 weeks: None household members: family housing: house ROS Obtained: Yes Systems reviewed as appropriate & no additional complaints exc ept as documented Physical Exam General General appearance: alert and in no apparent distress Head Head exam: atraumatic and normocephalic Eye Eye exam: Present PERRL and EOMI ENT ENT exam: Present mucous membranes moist Neck Neck exam: Present normal inspection Chest Chest inspection: Present normal inspection and symmetric chest wall rise Respiratory Respiratory exam: Present normal lung sounds bilaterally; Absent respiratory distress Cardiovascular Cardiovascular exam: Present regular rate and normal rhythm Abdominal Exam Abdominal exam: Present soft; Absent tenderness Extremities Exam Extremities exam: Present other (Significant pitting edema bilateral lower extremities distal to the mid thigh, scattered weeping and skin breakdown with areas of ulceration over the daigle, fissuring over the bilateral dorsal aspects of the feet.) Neurological Exam Neurological exam: Present alert Psychiatric Psychiatric exam: Present normal affect Skin Skin exam: Present warm and dry Medical Decision Making Teddy Inquiry Pt receiving controlled substance: No Vital Signs: 03/03/23 14:14 03/03/23 15:30 03/03/23 16:00 Temperature 98.4 F Temperature Source Oral Pulse Rate 65 66 Pulse Rate [Left Radial] 61 Respiratory Rate 18 16 Blood Pressure 147/82 H 155/83 H Blood Pressure [Right Arm] 123/67 Blood Pressure Mean 103 Blood Pressure Mean [Right Arm] 85 Blood Pressure Source [Right Arm] Automatic Cuff Blood Pressure Position [Right Arm] Sitting 02 Sat by Pulse Oximetry 95 96 96 Oxygen Delivery Method Room Air Room Air Lab Data Lab Results 03/03/23 14:23: WBC 8.8, RBC 3.90 L, Hgb 11.4 L, Hct 36.4 L, MCV 93.4, MCH 29.2, MCHC 31.2 L, RDW 17.2, Plt Count 292, MPV 8.3, Neut % (Auto) 75.0, Lymph % (Auto) 12.9, [place] % (Auto) 8.5, Eos % (Auto) 2.4, Baso % (Auto) 1.2, Neut # (Auto) 6.6, Lymph # (Auto) 1.1, [place] # (Auto) 0.8, Eos # (Auto) 0.2, Baso # (Auto) 0.1, Sodium 139, Potassium 4.9, Chloride 104, Carbon Dioxide 25, Anion Gap 14.9, BUN 31 H, Creatinine 2.00 H, Estimated Creat Clear 59, Estimated GFR 34 L, Est GFR ( Amer) 42 L, Glucose 123 H, Calcium 9.6, Total Bilirubin 1.0, AST 40, ALT 37, Alkaline Phosphatase 144 H, NT-Pro-B Natriuret Pep 14885 H, Total Protein 7.6, Albumin 4.1, Globulin 3.5 H, Albumin/Globulin Ratio 1.2 03/03/23 14:23 03/03/23 14:23 Orders (Tests/Meds): ED MEDICATIONS Discontinued Medications Generic Name Dose Route Start Last Admin Trade Name Freq PRN Reason Stop Dose Admin Dalbavancin 1,500 mg/ Dextrose 250 mls @ 500 mls/hr 03/03/23 15:14 03/03/23 15:43 IV 03/03/23 15:15 500 mls/hr ONCE ONE Administration ORDERS Category Date Time Status BNP [Brain Natriuretic Peptide] Stat Lab 03/03/23 14:23 Completed Complete Blood Count Auto Diff Stat Lab 03/03/23 14:23 Completed Comprehensive Metabolic Panel Stat Lab 03/03/23 14:23 Completed Medical Decision Narrative: In summary patient is a 57-year-old male with past medical history described above presents emergency department for evaluation of bilateral lower extremity swelling and wounds. Patient is hemodynamically stable nontoxic-appearing upon arrival, afebrile. I suspect that patient's edema is secondary to his lymphedema and heart failure which has reached a critical point causing his skin to weep and slough off. It is possible that he has superimposed infection and is at risk for infection due to his diabetes. Workup will be conducted with hematologic labs. Initial workup reviewed by me, hematologic labs are nonactionable, patient is stable CKD, no significant elevated anion gap, acceptable glucose. Given patient's creatinine clearance full dose of dalbavancin will be administered. Bacitracin was applied at open wounds and were dressed. Single dose IV Bumex will be administered. Patient was encouraged to follow-up with lymphedema clinic as compression stockings and wound care are imperative to his resolution of symptoms. Critical Care Critical Care Time Critical Care Time: No
--- NOTE | 2023-03-03 15:14 | PC.NURSE ---
CARE MANAGEMENT CALLED FOR HELP GETTING PT HIS GLUCOMETER STRIPS
[2023-03-03 15:28] LABS: NT Pro Brain Natriuretic Pep. 12000 pg/mL (0-125)
[2023-03-03 15:30] VITALS: BP 147/82; PULSE 65; RESP 16; O2SAT 96
[2023-03-03] MEDS: DALBAVANCIN HCL 1,500 MG in DEXTROSE 5 % IN WATER 250 ML 500 MG IV (15:43)
[2023-03-03 16:00] VITALS: BP 155/83; PULSE 66; O2SAT 96
[2023-03-03] MEDS: BUMETANIDE 1MG/4ML VIAL 1 MG IV (16:42)
[2023-03-03 16:49] VITALS: BP 143/87; PULSE 60; RESP 18; TEMP 36.7; O2SAT 97
== END 2023-03-03 16:50 | disposition home or self-care (01) ==
PROVIDERS: Emergency Medicine; Emergency Provider Emergency Medicine; PCP Internal Medicine
DX: S81.802A Unspecified open wound, left lower leg, initial encounter (principal); R60.9 Edema, unspecified; I13.0 Hypertensive heart and chronic kidney disease with heart failure and stage 1 through stage 4 chronic kidney disease, or unspecified chronic kidney disease; I50.20 Unspecified systolic (congestive) heart failure; I25.118 Atherosclerotic heart disease of native coronary artery with other forms of angina pectoris; J45.909 Unspecified asthma, uncomplicated; N18.31 Chronic kidney disease, stage 3a; E11.40 Type 2 diabetes mellitus with diabetic neuropathy, unspecified; E78.5 Hyperlipidemia, unspecified; I25.2 Old myocardial infarction
CPT/HCPCS: 80053; 83880; 85025; 85610; 96374; 99211; 99284; G0463; J0875

== ENCOUNTER 2023-03-10 10:13 | Outpatient (CLI) | payer BC, MEDICARE, SELFPAY ==
--- NOTE | 2023-03-10 10:13 | FL_ITS ---
FINAL REPORT CLINICAL HISTORY: dysphagia ft:0.45 DAP: 53.73mgy FINDINGS: ESOPHAGRAM HISTORY: Abdominal pain, nausea. PROCEDURE: The patient ingested barium. Effervescent crystals were also administered. Spot and overhead films were obtained. FINDINGS: There is relative narrowing of the distal esophagus not allowing passage of a 13 mm barium tablet. There is no hiatal hernia. There is mild gastroesophageal reflux. Peristalsis is normal. IMPRESSION: 1. Distal esophageal narrowing. Endoscopic correlation is recommended. 2. Mild gastroesophageal reflux. Films reviewed , interpreted and dictated by Dr. Ann Transcribed by Carter Valencia PA-C. Reviewed, Interpreted and Dictated by Jorge Ann III, MD Transcribed by VANNESA Ambriz Authenticated and [facility]
[2023-03-10] MEDS: BARIUM SULFATE(LIQUID E-Z-PAQUE);355ML BOTTLE 355 ML PO (10:36)
[2023-03-10] MEDS: BARIUM SULFATE (E-Z-HD 340GM);135ML BOTTLE 135 ML PO (10:36)
== END 2023-03-10 23:59 ==
LOC: RAD 10:13
PROVIDERS: PCP Internal Medicine; Visit Provider Surgery
DX: R13.14 Dysphagia, pharyngoesophageal phase (principal)
CPT/HCPCS: 74220

== ENCOUNTER 2023-03-17 13:57 | Outpatient (CLI) | payer BC, MEDICARE, SELFPAY ==
[2023-03-17 14:37] LABS: PHA INR Fingerstick 1.5 (0.9-1.1)
[2023-03-17 15:38] LABS: Anion Gap 16.7 mEq/L (5-15); Blood Urea Nitrogen 38 mg/dl (9-20); Calcium 9.6 mg/dl (8.4-10.2); Carbon Dioxide 25 mmol/L (22.0-30.0); Chloride 101 mmol/L (98-107); Estimated Glomerular Filt Rate 31 ml/min (>60); GFR (African American) 37 ML/MIN (>60); Glucose 130 mg/dl (74-100); Magnesium 2.3 mg/dl (1.6-2.3); Potassium 4.7 mmoL/L (3.5-5.1); Sodium 138 mmol/L (136-145)
== END 2023-03-17 14:38 ==
LOC: ACC 13:59
PROVIDERS: PCP Internal Medicine; Visit Provider Physician Assistant
DX: Z51.81 Encounter for therapeutic drug level monitoring (principal); Z79.01 Long term (current) use of anticoagulants; I25.10 Atherosclerotic heart disease of native coronary artery without angina pectoris; I10 Essential (primary) hypertension; I48.0 Paroxysmal atrial fibrillation; I50.20 Unspecified systolic (congestive) heart failure; R60.0 Localized edema; E78.5 Hyperlipidemia, unspecified; N18.31 Chronic kidney disease, stage 3a; F17.200 Nicotine dependence, unspecified, uncomplicated
CPT/HCPCS: 36415; 80048; 83735; 85610; 99211; G0463

== ENCOUNTER → 2023-03-28 10:18 | Day surgery (SDC) | payer BC, MEDICARE, SELFPAY ==
[2023-03-28] MEDS: LACTATED RINGERS 1000ML 1,000 ML 100 ML IV (10:32)
[2023-03-28 10:42] VITALS: BP 122/65; PULSE 62; RESP 18; TEMP 36.4; O2SAT 99
--- NOTE | 2023-03-28 10:52 | EXP.ANES.CKL ---
[facility] Disclaimer: The information contained in this section may have been updated after the patient was seen, as this information can be updated by other users. Medical History Acute exacerbation of CHF (congestive heart failure) Acute exacerbation of CHF (congestive heart failure) Acute hyperkalemia Arthritis Asthma CAD (coronary artery disease) Cardiac volume overload Chronic kidney disease, stage 3a Coronary artery disease Deviated nasal septum Diabetes Diabetes mellitus, type 2 Dizziness Dysphagia Dyspnea Esophagitis GERD (gastroesophageal reflux disease) Globus sensation H/O blood clots Heart failure with reduced ejection fraction History of heart attack History of stroke HLD (hyperlipidemia) Hoarseness HTN (hypertension) Hyperglycemia due to diabetes mellitus Hypertension Lymphedema Neuropathy NYHA class 3 heart failure with reduced ejection fraction PAF (paroxysmal atrial fibrillation) Smoker Systolic heart failure Tobacco dependence syndrome Typical angina Surgical History History of heart artery stent S/P CABG (coronary artery bypass graft) S/P CABG x 4 Family History Other Cancer Coronary artery disease Diabetes Hypertension Kidney disease Stroke Social History Smoking Status: Never smoker second hand exposure: Yes alcohol intake: never counseling provided: none substance use type: denies use current occupational status: disabled and other Travel in the last 8 weeks: None household members: family housing: house caffeine: Yes [facility] [place] Anesthesia Checklist Patient Identification Patient Identification: Arm Band and Verbal (Name & ) Structural Data Admitted From: Home Planned Operative Procedure/s: EGD Consent for Planned Operative Procedure(s) Verified: Yes NPO Status Verified Time NPO: 00:00 Additional verifications Anesthesia Reactions: No Airway Assessment Mallampati Score:: Class III C-Spine Mobility Assessed: Yes TMJ Mobility Assessed: Yes Neurological Assessment Level of Consciousness: Awake Hx Seizures: No Numbness or tingling in extremities: No Anesthesia Plan Anesthesia Risk discussed: Yes Anesthesia Plan: Verified ASA Class: III Anesthesia Type: MAC
--- NOTE | 2023-03-28 14:22 | SUR.PREOP ---
Upon discussion with patient determined per Dr. Story to cancel/postpone procedure today. To be rescheduled with Dr White for possible dilation after it is determined if pt can stop his anticoagulants and bridge with Lovenox prior to procedure.
[2023-03-29 09:55] LABS: POC Glucose,Bedside 145 (70-110)
== END | disposition home or self-care (01) ==
PROVIDERS: PCP Internal Medicine; Visit Provider Surgery
PROC: 0DJ08ZZ Inspection of Upper Intestinal Tract, Via Natural or Artificial Opening Endoscopic (ICD-10-PCS; CPT 43235; principal; 2023-03-28 11:30)
DX: K22.2 Esophageal obstruction (principal); Z79.01 Long term (current) use of anticoagulants; Z53.09 Procedure and treatment not carried out because of other contraindication; E11.9 Type 2 diabetes mellitus without complications
CPT/HCPCS: 43235; 82962

== ENCOUNTER 2023-03-31 10:56 | Outpatient (CLI) | payer BC, MEDICARE, SELFPAY ==
[2023-03-31 15:15] LABS: PHA INR Fingerstick 4.3 (0.9-1.1)
== END 2023-03-31 15:24 ==
LOC: ACC 10:57
PROVIDERS: PCP Internal Medicine; Visit Provider Physician Assistant
DX: Z51.81 Encounter for therapeutic drug level monitoring (principal); Z79.01 Long term (current) use of anticoagulants; I48.0 Paroxysmal atrial fibrillation
CPT/HCPCS: 85610; 99211; G0463

== ENCOUNTER 2023-04-02 12:55 | Emergency (ER) | payer BC, MEDICARE, SELFPAY ==
[2023-04-02 12:56] VITALS: BP 121/65; RESP 20; TEMP 36.9; O2SAT 99; BMI 34.0
--- NOTE | 2023-04-02 13:14 | ECG_ITS ---
APPROVED REPORT Exam: Resting ECG HR:60 bpm ECG Measurements Heart Rate 60 AXES [place] 316 P -68 QRSd 150 QRS 199 QT 520 T 30 QTc 520 Conclusion ELECTRONIC ATRIAL PACEMAKER RIGHT AXIS DEVIATION [QRS AXIS > 100] INTRAVENTRICULAR CONDUCTION DELAY [130+ ms QRS DURATION] ABNORMAL ECG UNCONFIRMED REPORT Electronically signed by : Jarod Salter MD 04/03/2023 17:58:09
[2023-04-02 13:31] VITALS: BP 125/69; PULSE 60; O2SAT 96
--- NOTE | 2023-04-02 13:42 | CT_ITS ---
PROCEDURE INFORMATION: Exam: CT Head Without Contrast Exam date and time: 04/02/2023 1:52 PM Age: 57 years old Clinical indication: Injury or trauma; Fall; Blunt trauma (contusions or hematomas) TECHNIQUE: Imaging protocol: Computed tomography of the head without contrast. Radiation optimization: All CT scans at this facility use at least one of these dose optimization techniques: automated exposure control; mA and/or kV adjustment per patient size (includes targeted exams where dose is matched to clinical indication); or iterative reconstruction. COMPARISON: CT SOFT TISSUE NECK W CON 02/23/2023 12:06 PM FINDINGS: Brain: No intracranial hemorrhage. No evidence of acute territorial infarct or cerebral edema. Mild prominence of the cortical sulci consistent with age-appropriate intracerebral volume loss. Periventricular white matter tract changes consistent with microvascular disease. No mass effect or midline shift. Cerebral ventricles: No ventriculomegaly. Paranasal sinuses: Visualized sinuses are unremarkable. No fluid levels. Mastoid air cells: Visualized mastoid air cells are well aerated. Bones/joints: Unremarkable. No acute fracture. Soft tissues: Unremarkable. IMPRESSION: No evidence of acute intracranial abnormality.
[2023-04-02 13:49] LABS: Basophils % 0.4 % (0.1-2.0); Eosinophils # 0.1 K/mm3 (0.0-0.4); Eosinophils % 1.6 % (0.1-12.0); Hematocrit 33.2 % (42.0-52.0); Hemoglobin 11.1 g/dL (14.1-18.0); Lymphocytes # 1.5 K/mm3 (0.7-4.5); Lymphocytes % 16.4 % (10-50); Mean Corpuscular HGB Conc 33.3 g/dL (31.8-35.4); Mean Corpuscular Hemoglobin 30.4 pg (27.0-31.2); Mean Corpuscular Volume 91.4 fl (80-94); Mean Platelet Volume 8.3 fl (7.4-10.4); Monocytes # 0.6 K/mm3 (0.1-1.0); Monocytes % 6.3 % (1.7-9.3); Neutrophils # 6.9 K/mm3 (1.8-7.8); Neutrophils % 75.3 % (37.0-80.0); Platelet Count 343 K/mm3 (142-424); Red Blood Count 3.63 M/mm3 (4.60-6.20); Red Cell Distribution Width 17.8 % (11.5-17.5); White Blood Count 9.1 K/mm3 (4.8-10.8)
[2023-04-02 13:50] LABS: Chloride 101 mmol/L (98-107); Potassium 5.3 mmoL/L (3.5-5.1); Sodium 136 mmol/L (136-145)
--- NOTE | 2023-04-02 13:50 | PC.NURSE ---
PT TO CT
[2023-04-02 13:52] LABS: Blood Urea Nitrogen 41 mg/dl (9-20); Creatinine Clearance Estimated 42 mL/min (50-200); Estimated Glomerular Filt Rate 23 ml/min (>60); GFR (African American) 28 ML/MIN (>60)
[2023-04-02 13:53] LABS: Anion Gap 20.3 mEq/L (5-15); Calcium 9.6 mg/dl (8.4-10.2); Carbon Dioxide 20 mmol/L (22.0-30.0); Glucose 190 mg/dl (74-100)
[2023-04-02 13:55] LABS: INR 3.67 (0.9-1.1); Prothrombin Time 36.4 seconds (10.1-12.5)
[2023-04-02 14:00] VITALS: BP 124/64; PULSE 53; O2SAT 96
--- NOTE | 2023-04-02 14:03 | ED_ITS ---
I was consulted by the POLI, and we discussed the complexity of the problems being addressed. I approved the treatment and management plan for this patient's care in the emergency department, thus performing a substantive portion of the medical decision making. Kevyn Carter MD, NEVA, FACE Discharge Plan Disposition Patient Disposition: Home, Self-Care Condition: Good Prescriptions Prescriptions: No Action spironolactone 25 mg tablet 25 mg PO DAILY 60 Days Qty: 60 2RF Entresto 97-103 mg tablet See Rx Instructions .ROUTE .COMPLEX Qty: 180 1RF Dose Instruction: Take 1 tablet by mouth twice daily Rx Instructions: Take 1 tablet by mouth twice daily metformin 1,000 mg tablet 1,000 mg PO BIDWMEAL Qty: 180 0RF atorvastatin 40 mg tablet See Rx Instructions .ROUTE .COMPLEX Qty: 90 3RF Dose Instruction: TAKE 2 TABLETS BY MOUTH AT BEDTIME NIGHTLY FOR CHOLESTEROL Rx Instructions: TAKE 2 TABLETS BY MOUTH AT BEDTIME NIGHTLY FOR CHOLESTEROL bumetanide 1 mg tablet 2 mg PO BID PRN (Reason: edema) Qty: 120 5RF Rx Instructions: Take 2 mg in morning and 1 mg in afternoon daily omeprazole 40 mg capsule,delayed release(DR/EC) 40 mg PO DAILY Trulicity 1.5 mg/0.5 mL pen injector 1.5 mg SQ WEEKLY albuterol sulfate 90 mcg/actuation HFA aerosol inhaler 2 puff inhalation QIDP PRN (Reason: shortness of breath or wheezing) fluticasone propionate 50 mcg/actuation [place],Suspension 1 spray INTRANASAL DAILY Rx Instructions: administer into each nostril bisoprolol fumarate 5 mg tablet 5 mg PO DAILY warfarin 2.5 mg Tablet 1.25 mg PO MOFR warfarin 2.5 mg Tablet 2.5 mg PO SUTUWETHSA amiodarone 200 mg tablet 200 mg PO BID clopidogrel 75 mg tablet 75 mg PO DAILY tramadol 50 mg tablet 50 mg PO Q8HP PRN (Reason: pain) nitroglycerin 0.4 mg tablet, sublingual 0.4 mg sublingual Q5MINP PRN (Reason: chest pain) Rx Instructions: do not exceed 3 doses per episode tizanidine 2 mg capsule 2 mg PO TIDP PRN (Reason: muscle spasticity) mecobalamin (vitamin B12) 1,000 mcg tablet,chewable 1,000 mcg PO DAILY bupropion HCl 150 mg tablet sustained-release 12 hr 150 mg PO BID Patient Comments: Take 1 tablet by mouth twice daily insulin glargine [Lantus Solostar U-100 Insulin] 100 unit/mL (3 mL) insulin pen 25 unit SQ HS Referrals Follow up/Referrals: Mal Barfield DO [Primary Care Provider] - See instructions Activity Restrictions/Add. Instructions Additional Instructions/Restrictions: Hold next dose of Coumadin. Follow-up with your traffic agent this week Clinical Impressions Clinical Impression: Syncope Discharge ED Provider: Kevyn Carter General Adult HPI <NATHANAEL Patterson - Last Filed: 04/02/23 14:39> General Chief complaint: Fall Stated complaint: AO fall hit head slurred speech Time Seen by Provider: 04/02/23 14:02 Mode of Arrival: Wheelchair Source of Information: Patient Limitations: No Limitations Description of Symptoms (Recalled from ER Triage Doc. by RN): Patient states he had an unwitnessed fall at home, states his vision got fuzzy and he fell and hit left side of head. Small open area on left ear. Patient is on blood thinners and wanted to be evaluated after fall. History of Present Illness HPI narrative: Patient is a 57-year-old male who presents after suffering an accidental fall ground-level at home. Patient states he was getting up from a chair and walking across the living room when things kind of turned black . Patient does not recall what happened after that but apparently he hit a curio cabinet in the living room. Patient complains of pain to the left side of his head above his left ear and abrasions to the bilateral kneecaps. Patient does have past medical history of coronary artery disease status post coronary artery bypass grafting on current Coumadin. He denies chest pain shortness of breath fever chills hemoptysis hematochezia melena nausea vomit diarrhea. Related Data Home Medications Medication Instructions Recorded Confirmed omeprazole 40 mg capsule,delayed 40 mg PO DAILY Acid reflux 03/21/22 03/20/23 release dulaglutide 1.5 mg/0.5 mL 1.5 mg SQ WEEKLY Diabetes 06/04/22 03/20/23 subcutaneous [facility] albuterol sulfate 90 mcg/actuation 2 puff inhalation QIDP PRN 06/05/22 03/20/23 aerosol inhaler shortness of breath or wheezing fluticasone propionate 50 1 spray intranasal DAILY Allergy 06/07/22 03/20/23 mcg/actuation nasal Symptoms spray,suspension bisoprolol fumarate 5 mg tablet 5 mg PO DAILY High Blood Pressure 06/17/22 03/20/23 bupropion HCl 150 mg tablet,12 hr 150 mg PO BID mood 01/10/23 03/20/23 sustained-release insulin glargine 100 unit/mL (3 25 unit SQ HS Diabetes 01/10/23 03/20/23 mL) subcutaneous pen (Lantus Solostar U-100 Insulin) amiodarone 200 mg tablet 200 mg PO BID Heart Rhythm 02/10/23 03/20/23 clopidogrel 75 mg tablet 75 mg PO DAILY Blood Thinner 02/10/23 03/20/23 mecobalamin (vitamin B12) 1,000 1,000 mcg PO DAILY Supplement 02/10/23 03/20/23 mcg chewable tablet nitroglycerin 0.4 mg sublingual 0.4 mg sublingual Q5MINP PRN chest 02/10/23 03/20/23 tablet pain tizanidine 2 mg capsule 2 mg PO TIDP PRN muscle spasticity 02/10/23 03/20/23 tramadol 50 mg tablet 50 mg PO Q8HP PRN pain 02/10/23 03/20/23 warfarin 2.5 mg tablet 1.25 mg PO MOFR Blood Thinner 02/10/23 03/20/23 warfarin 2.5 mg tablet 2.5 mg PO SUTUWETHSA LEFT 02/10/23 03/20/23 VENTRICLE THROMBUS Previous Rx's Medication Instructions Recorded sacubitril 97 mg-valsartan 103 mg See Rx Instructions .Route 02/15/23 tablet (Entresto) .COMPLEX #180 tabs spironolactone 25 mg tablet 25 mg PO DAILY Fluid 60 days #60 02/21/23 tabs metformin 1,000 mg tablet 1,000 mg PO BIDWMEAL Diabetes #180 03/13/23 tabs atorvastatin 40 mg tablet See Rx Instructions .Route 03/22/23 .COMPLEX #90 tabs bumetanide 1 mg tablet 2 mg PO BID PRN edema #120 tabs 03/23/23 Allergies Allergy/AdvReac Type Severity Reaction Status Date / Time No Known Allergies Allergy Verified 03/20/23 13:11 PFSH <NATHANAEL Patterson - Last Filed: 04/02/23 14:39> [facility] Disclaimer: The information contained in this section may have been updated after the patient was seen, as this information can be updated by other users. Medical History Acute exacerbation of CHF (congestive heart failure) Acute exacerbation of CHF (congestive heart failure) Acute hyperkalemia Arthritis Asthma CAD (coronary artery disease) Cardiac volume overload Chronic kidney disease, stage 3a Coronary artery disease Deviated nasal septum Diabetes Diabetes mellitus, type 2 Dizziness Dysphagia Dyspnea Esophagitis GERD (gastroesophageal reflux disease) Globus sensation H/O blood clots Heart failure with reduced ejection fraction History of heart attack History of stroke HLD (hyperlipidemia) Hoarseness HTN (hypertension) Hyperglycemia due to diabetes mellitus Hypertension Lymphedema Neuropathy NYHA class 3 heart failure with reduced ejection fraction PAF (paroxysmal atrial fibrillation) Smoker Systolic heart failure Tobacco dependence syndrome Typical angina Surgical History History of heart artery stent S/P CABG (coronary artery bypass graft) S/P CABG x 4 Family History Other Cancer Coronary artery disease Diabetes Hypertension Kidney disease Stroke Social History Smoking Status: Former smoker tobacco type: cigarettes packs per day: 1 second hand exposure: Yes alcohol intake: never counseling provided: none substance use type: denies use current occupational status: disabled and other Travel in the last 8 weeks: None household members: family housing: house caffeine: Yes <NATHANAEL Patterson - Last Filed: 04/02/23 14:39> ROS Obtained: Yes Systems reviewed as appropriate & no additional complaints except as documented Physical Exam <NATHANAEL Patterson - Last Filed: 04/02/23 14:39> Narrative Physical exam: The patient is a well-nourished well-developed much older than stated age. 57-year-old male who otherwise is no acute distress General General appearance: alert and in no apparent distress Head Head exam: normal inspection and other (Patient has a small abrasion to the left pinna at the apex. Patient has tender to palpation in the temporal area but no deformity step-offs lacerations or abrasions otherwise noted.) Eye Eye exam: Present normal appearance, PERRL and EOMI ENT ENT exam: Present normal exam, normal oropharynx and mucous membranes moist Neck Neck exam: Present normal inspection, full ROM and trachea midline; Absent lymphadenopathy Chest Chest inspection: Present normal inspection and symmetric chest wall rise Respiratory Respiratory exam: Present normal lung sounds bilaterally; Absent accessory muscle use Cardiovascular Cardiovascular exam: Present regular rate, normal rhythm, normal heart sounds, +S1 and +S2 Abdominal Exam Abdominal exam: Present soft and normal bowel sounds; Absent tenderness, guarding or rebound Extremities Exam Extremities exam: Present normal inspection and full ROM Neurological Exam Neurological exam: Present alert, oriented X3 and CN II-XII intact Psychiatric Psychiatric exam: Present normal affect and normal mood Skin Skin exam: Present warm, dry, normal color and other (Patient has 2 abrasion/small skin tears to the infrapatellar area bilaterally that are not currently bleeding. Patient has also a small abrasion to his left pinna that is also currently not bleeding.) Lymphatic Lymphatic Findings: no adenopathy Medical Decision Making <NATHANAEL Patterson - Last Filed: 04/02/23 14:39> Medical Records Medical records reviewed: Yes I reviewed the patient's medical records. Teddy Inquiry Pt receiving controlled substance: No Vital Signs: 04/02/23 12:56 04/02/23 13:31 04/02/23 14:00 Temperature 98.4 F Temperature Source Oral Pulse Rate 60 53 L Respiratory Rate 20 Blood Pressure 125/69 124/64 Blood Pressure [Right Arm] 121/65 Blood Pressure Mean [Right Arm] 83 Blood Pressure Source [Right Arm] Automatic Cuff 02 Sat by Pulse Oximetry 99 96 96 Oxygen Delivery Method Room Air Room Air Room Air Lab Data Lab results reviewed: Yes I reviewed the patient's lab results. Lab Results 04/02/23 13:05: WBC 9.1, RBC 3.63 L, Hgb 11.1 L, Hct 33.2 L, MCV 91.4, MCH 30.4, MCHC 33.3, RDW 17.8 H, Plt Count 343, MPV 8.3, Neut % (Auto) 75.3, Lymph % (Auto) 16.4, [place] % (Auto) 6.3, Eos % (Auto) 1.6, Baso % (Auto) 0.4, Neut # (Auto) 6.9, Lymph # (Auto) 1.5, [place] # (Auto) 0.6, Eos # (Auto) 0.1, Baso # (Auto) 0.0, PT 36.4 H, INR 3.67 H, Sodium 136, Potassium 5.3 H, Chloride 101, Carbon Dioxide 20 L, Anion Gap 20.3 H, BUN 41 H, Creatinine 2.80 H, Estimated Creat Clear 42, Estimated GFR 23 L, Est GFR ( Amer) 28 L, Glucose 190 H, Calcium 9.6, Troponin I 0.02 04/02/23 13:05 04/02/23 13:05 Orders (Tests/Meds): ED MEDICATIONS Generic Name Dose Route Start Last Admin Trade Name Freq PRN Reason Stop Dose Admin Sodium Chloride 10 ml 04/02/23 13:42 Sodium Chloride 0.9% 10ml Flush Syringe IV 05/02/23 13:41 NEEDED PRN Maintain IV Site ORDERS Category Date Time Status CT head/brain wo con Stat Cat Scan 04/02/23 13:42 Completed Basic Metabolic Panel Stat Lab 04/02/23 13:05 Completed Complete Blood Count Auto Diff Stat Lab 04/02/23 13:05 Completed Prothrombin Time INR Stat Lab 04/02/23 13:05 Completed Trop I [Troponin I] Stat Lab 04/02/23 13:05 Completed Troponin I Q3H Lab 04/02/23 16:45 Ordered Troponin I Q3H Lab 04/02/23 19:45 Ordered Medical Decision Narrative: In summary patient is a 57-year-old male who presents to the emergency department for evaluation of syncope. Patient is hemodynamically stable upon arrival, and afebrile. Physical exam shows an abrasion to his left ear and the bilateral patellar area. Patient has no deformities or other lacerations. Patient is awake alert and oriented x 3 has a nonfocal neurologic exam. Dif ferential diagnosis includes vasovagal syncope versus cardiac arrhythmia versus accidental fall. Initial workup will be conducted with hematologic labs, EKG and CT of the head without contrast. Initial interventions include cleaning and dressing of his abrasions initial workup reviewed by me shows supratherapeutic INR and my personal interpretation of the CT scan shows no acute bleed or other intracranial abnormalities including fracture. Upon repeat evaluation has remained awake alert and oriented with no focal neurologic signs. Twelve-lead EKG shows paced rhythm with no ectopy or evidence of ACS. Given this appropriate for discharge with instructions to hold next dose of Coumadin. Nathanael terrell needs to follow-up with his PCP and follow-up with his traffic agent this week. <Kevyn Carter MD - Last Filed: 04/02/23 14:30> Vital Signs: 04/02/23 12:56 04/02/23 13:31 04/02/23 14:00 Temperature 98.4 F Temperature Source Oral Pulse Rate 60 53 L Respiratory Rate 20 Blood Pressure 125/69 124/64 Blood Pressure [Right Arm] 121/65 Blood Pressure Mean [Right Arm] 83 Blood Pressure Source [Right Arm] Automatic Cuff 02 Sat by Pulse Oximetry 99 96 96 Oxygen Delivery Method Room Air Room Air Room Air Lab Data Lab results reviewed: Yes I reviewed the patient's lab results. Lab Results 04/02/23 13:05: WBC 9.1, RBC 3.63 L, Hgb 11.1 L, Hct 33.2 L, MCV 91.4, MCH 30.4, MCHC 33.3, RDW 17.8 H, Plt Count 343, MPV 8.3, Neut % (Auto) 75.3, Lymph % (Auto) 16.4, [place] % (Auto) 6.3, Eos % (Auto) 1.6, Baso % (Auto) 0.4, Neut # (Auto) 6.9, Lymph # (Auto) 1.5, [place] # (Auto) 0.6, Eos # (Auto) 0.1, Baso # (Auto) 0.0, PT 36.4 H, INR 3.67 H, Sodium 136, Potassium 5.3 H, Chloride 101, Carbon Dioxide 20 L, Anion Gap 20.3 H, BUN 41 H, Creatinine 2.80 H, Estimated Creat Clear 42, Estimated GFR 23 L, Est GFR ( Amer) 28 L, Glucose 190 H, Calcium 9.6, Troponin I 0.02 Orders (Tests/Meds): ED MEDICATIONS Generic Name Dose Route Start Last Admin Trade Name Freq PRN Reason Stop Dose Admin Sodium Chloride 10 ml 04/02/23 13:42 Sodium Chloride 0.9% 10ml Flush Syringe IV 05/02/23 13:41 NEEDED PRN Maintain IV Site ORDERS Category Date Time Status CT head/brain wo con Stat Cat Scan 04/02/23 13:42 Completed Basic Metabolic Panel Stat Lab 04/02/23 13:05 Completed Complete Blood Count Auto Diff Stat Lab 04/02/23 13:05 Completed Prothrombin Time INR Stat Lab 04/02/23 13:05 Completed Trop I [Troponin I] Stat Lab 04/02/23 13:05 Completed Troponin I Q3H Lab 04/02/23 16:45 Ordered Troponin I Q3H Lab 04/02/23 19:45 Ordered ECG Data Tracing #1: I reviewed this ECG and interpreted as documented below: Electronic atrial pacemaker no acute ischemic changes noted appropriately paced Critical Care <NATHANAEL Patterson - Last Filed: 04/02/23 14:39> Critical Care Time Critical Care Time: No
[2023-04-02 14:05] LABS: Troponin I 0.02 ng/ml (0.00-0.034)
[2023-04-02 14:41] VITALS: BP 132/74; PULSE 60; RESP 20; TEMP 36.9; O2SAT 97
== END 2023-04-02 14:47 | disposition home or self-care (01) ==
PROVIDERS: Emergency Provider Student in an Organized Health Care Education/Training Program; PCP Internal Medicine
DX: R55 Syncope and collapse (principal); H53.8 Other visual disturbances; I11.0 Hypertensive heart disease with heart failure; I50.20 Unspecified systolic (congestive) heart failure; J45.909 Unspecified asthma, uncomplicated; I25.118 Atherosclerotic heart disease of native coronary artery with other forms of angina pectoris; E11.9 Type 2 diabetes mellitus without complications; I25.2 Old myocardial infarction; E78.5 Hyperlipidemia, unspecified; I48.0 Paroxysmal atrial fibrillation; Z87.891 Personal history of nicotine dependence; W19.XXXA Unspecified fall, initial encounter
CPT/HCPCS: 70450; 80048; 84484; 85025; 85610; 93005; 99285

== ENCOUNTER 2023-04-07 14:00 | Outpatient (RCR) | payer MEDICARE, SELFPAY ==
--- NOTE | 2023-03-08 16:19 | HMH.PTOPWND ---
Rehab Outpt Wound Evaluation Rehab OP Wound Evaluation Start: 03/08/23 16:00 Freq: Status: Active Protocol: Document 03/08/23 16:06 JESUS (Rec: 03/08/23 16:19 PHOMARINO [id number]) E-signed By Alexandre Loza, PT Subjective/History History History This is the initial PT eval for Matthew Zayas, 57 yowm who presents with c/o B LE edema and multiple open sores. He reports edema has been present for ~ 1 yr, but craig x 3-4 mos. He also reports 2-3 mo hx of the sores on his leg that, just started opening up. His L LE has significant drainage associated with an open wound also. He reports pain in B LE that has been increasing with edema. He reports decreased ambulation ability since heart surgery ~ 1 yr ago. He has PMH of CHF, CABG x 4v with mitral valve repair, implanted defibrilator , DM with neuropathy, CKD, HTN , HLD. Subjective Subjective He reports pain in B LE 07/30 this date. 4+ pitting edema to B LE from mid-thigh distally. 2/4 TTP in B LE gaiter areas. Moderate blanchable erythema to B LE from knee distally. New diagnosis of cancer in past 12 No months? Wound Eval Wound Left Arce Wound Type Stasis Ulcer Is This a Chronic Wound Yes Wound Length (cm) 3.0 Wound Width (cm) 1.0 Wound Depth (cm) 0.1 Wound Bed Appearance Yellow Percentage Granulated (%) 100 Wound Margins Description Indistinct Surrounding Tissue Appearance Bright Red Edema Type Pitting Edema Degree 4+ Query Text:1+ Trace, Barely Detectable, Rebound 15-30 seconds 2+ Moderate, Slight Indentation, Rebound 10-20 seconds 3+ Deep, Deeper Indentation, Rebound > 30 seconds 4+ Very Deep, Rebound > 60 seconds Edema Appearance Weeping,Puffy,Red Drainage Description Serous Drainage Amount Copious Primary Dressing Unna Boot Comment 2 layer calamine compression wrap system Wound Secondary Dressing Type Absorbant Pad Comment optilock Wound Debridement Method Gauze,Mechanical Wound Debridement Amount of Tissue Minimal Removed Dressing Change Patient Tolerance Tolerated Well Lymphedema Eval Classification of Lymphedema Secondary Lymphedema Yes: CHF, CKD, CVI Stemmer's sign Stemmer's Sign yes Stage of Lymphedema Lymphedema stages Stage III (Non-pitting, fibrosis and sclerosis, skin changes) Skin Changes Dry Skin Yes Taut, Shiny Skin Yes Skin Folds Yes Hyperkeratosis Yes Redness Yes Blisters Yes Wounds Yes Brittle Uneven Nails Yes Discoloration of Skin Yes Other Changes Yes Pain Scale Pain Scale (0-10) 6 Affected Extremities Areas Affected by Lymphedema/Edema Right Lower Extremity,Left Lower Extremity Manual Lymphatic Drainage Treatment Area MLD Treatment Area Right Lower Extremity,Left Lower Extremity Wound Problems/Impairments Impairments Problems/Impairmments Palpation Tenderness,Impaired Range of Motion,Impaired Strength,Impaired Endurance, Impaired Transfers,Impaired Gait Pattern,Impaired Walking, Impaired Standing,Impaired Sitting,Impaired Lifting, Impaired Dressing,Impaired Shower/Bathing,Impaired Household Care,Impaired Stepping on Uneven Surface, Impaired Recreational Activities,Increased Edema, Lymphedema Present,Wound Care Needs,Subjective C/O Pain, Impaired Self Care/Self Management Prognosis Rehab Potential Fair Comment Mulitple co-morbid condidtion will increase difficulty of treatment, Severe CHF results in contraindication to significant compression to B LE at the same time. Clinical Impression Consistent with Diagnosis Yes Short Term Goals Number of Weeks 4 Decreased Palpation Tenderness Yes: 1/4 B lower leg Decrease Edema Yes: 2+ pitting edema Decrease Wound Area Yes: by 25% Decrease Subjective C/O Pain Yes: 4/10 Patient to Understand Lymphedema Yes Treatment and Exercises Decrease Girth Measurments by (cm) Yes: B LE by 5 cm total ea Associate Financial Planner Goals Number of Weeks 6-8 Decreased Palpation Tenderness Yes: 0/4 B lower leg Improve Ability For Household Care Yes Decrease Edema Yes: 1+ pitting edema Decrease Wound Area Yes: by 75% Decrease Subjective C/O Pain Yes: 2/10 Patient to be Ind w/ HEP Yes Patient to be Ind w/ [place] Yes Compression Garments Patient to Adhere Lymphedema Precautions Yes Decrease Girth Measurments by (cm) Yes: B LE by 20 cm ea total Outpatient Therapy Plan of Care Treatment Plan May Include Therapeutic Exercise Including Home Yes Exercise Program Manual Therapy Techniques Yes Neuromuscular Re-education Yes Therapeutic Activities to Return to Yes Previous Functional/Work Level ADL/Self Care Education Yes Ultrasound/Phonophoresis Yes Orthotics/Bracing/Splinting Yes Manual Lymphatic Drainage Yes Wound Care Yes Eval/Re-Eval Yes Frequency Times per week 2 Duration Number of Weeks 6-8 Addendums This patient is a candidate for social No or vocational rehab? Patient/Guardian verbally acknowledges Yes understanding of treatment program and consents to further treatment? Patient/Guardian verbally acknowledges Yes understanding of diagnosis, prognosis and goals for treatment? Eval Complexity PT Charges 17954 - High Complexity PHYSICIAN CERTIFICATION: I certify the specified therapy services for Matthew Zayas are required, authorized, and reviewed every 30 days.
== END 2023-04-07 15:00 | disposition home or self-care (01) ==
LOC: PT 14:00
PROVIDERS: PCP Internal Medicine; Visit Provider Internal Medicine
DX: I89.0 Lymphedema, not elsewhere classified (principal)
CPT/HCPCS: 29580; 97140; 97163

== ENCOUNTER 2023-04-07 14:52 | Outpatient (CLI) | payer BC, MEDICARE, SELFPAY ==
[2023-04-07 15:18] LABS: PHA INR Fingerstick 1.9 (0.9-1.1)
== END 2023-04-07 15:20 ==
LOC: ACC 14:54
PROVIDERS: PCP Internal Medicine; Visit Provider Physician Assistant
DX: Z51.81 Encounter for therapeutic drug level monitoring (principal); Z79.01 Long term (current) use of anticoagulants
CPT/HCPCS: 85610; 99211; G0463

== ENCOUNTER 2023-04-11 13:21 | Outpatient (CLI) | payer MEDICARE, SELFPAY ==
--- NOTE | 2023-04-11 | CA_ITS ---
FINAL REPORT CLINICAL HISTORY: CLAUDICATION, OPEN SORES/ULCERS, LYMPH EDEMA, LONG STANDING CELLULITIS WITH HARDENED TISSUES FINDINGS: BILATERAL LOWER EXTREMITY DUPLEX DOPPLER Color Doppler and duplex Doppler of the bilateral lower extremity was performed. Spectral analysis was also performed. Velocities were measured at multiple levels. All velocities are in centimeters per second. RIGHT AQUACULTURE PROGRAM DIRECTOR: 168 SFA Prox: 118 SFA Mid: 100 SFA Distal: 117 PROFESSOR OF FINE ART Prox: 68 PROFESSOR OF FINE ART Mid: 74 CARL Mid: 61 Per A Prox: 63 Waveforms are triphasic and biphasic. LEFT AQUACULTURE PROGRAM DIRECTOR: 119 SFA Prox: 147 SFA Mid: 107 SFA Distal: 124 PROFESSOR OF FINE ART Mid: 82 CARL Mid: 72 Per A Prox: 95 Waveforms are triphasic and biphasic. IMPRESSION: Waveforms are noted to be triphasic and biphasic. No levels of stenosis or occlusion are identified. Reviewed, Interpreted and Dictated by Gurinder Caruso MD Transcribed by Kristin Warren Authenticated and . [facility]
--- NOTE | 2023-04-11 13:28 | CA_ITS ---
FINAL REPORT TECHNIQUE: Bilateral lower extremity venous duplex was performed with augmentation and compression. CLINICAL HISTORY: bilateral lower extremity edema, un healing wounds, Poor hygiene, cellulitis/ lymph edema COMPARISON: None FINDINGS: Proper flow is seen throughout the deep venous systems bilaterally. There is no evidence of deep venous thrombosis. IMPRESSION: No evidence of deep venous thrombosis. Reviewed, Interpreted and Dictated by Gurinder Caruso MD Transcribed by Kristin Warren Authenticated and [facility]
== END 2023-04-11 23:59 | disposition home or self-care (01) ==
LOC: RT 13:22
PROVIDERS: PCP Internal Medicine; Visit Provider Internal Medicine
DX: I89.0 Lymphedema, not elsewhere classified (principal); R60.0 Localized edema; I70.213 Atherosclerosis of native arteries of extremities with intermittent claudication, bilateral legs; S81.801A Unspecified open wound, right lower leg, initial encounter; S81.802A Unspecified open wound, left lower leg, initial encounter
CPT/HCPCS: 93925; 93970

== ENCOUNTER 2023-04-14 05:44 | Inpatient (IN) | payer MEDICARE, SELFPAY ==
[2023-04-14 05:46] VITALS: BP 139/74; PULSE 61; RESP 22; TEMP 36.6; O2SAT 98; BMI 36.9
--- NOTE | 2023-04-14 06:06 | XR_ITS ---
PROCEDURE INFORMATION: Exam: XR Chest Exam date and time: 04/14/2023 6:18 AM Age: 57 years old Clinical indication: Other: Leg swelling; Additional info: Ble swelling SOA TECHNIQUE: Imaging protocol: Radiologic exam of the chest. Views: 1 view. COMPARISON: CT CHEST W CON 02/23/2023 12:10 PM FINDINGS: Tubes, catheters and devices: An ICD generator overlies and obscures a left upper lateral chest with atrial and ventricular wire leads. Lungs: There is atelectasis noted in the left perihilar region. Pleural spaces: Unremarkable. No pleural effusion. No pneumothorax. Heart/Mediastinum: Cardiac metallic valve annulus is noted. Bones/joints: The patient is post sternotomy with surgical clips overlying mediastinum. IMPRESSION: Postsurgical change as described. Atelectasis.
[2023-04-14 06:19] LABS: Basophils % 0.3 % (0.1-2.0); Chloride 105 mmol/L (98-107); Eosinophils # 0.1 K/mm3 (0.0-0.4); Eosinophils % 1.8 % (0.1-12.0); Hematocrit 33.7 % (42.0-52.0); Hemoglobin 10.8 g/dL (14.1-18.0); Lymphocytes # 1.2 K/mm3 (0.7-4.5); Lymphocytes % 17.3 % (10-50); Mean Corpuscular HGB Conc 32.1 g/dL (31.8-35.4); Mean Corpuscular Hemoglobin 30.3 pg (27.0-31.2); Mean Corpuscular Volume 94.4 fl (80-94); Mean Platelet Volume 8.1 fl (7.4-10.4); Monocytes # 0.5 K/mm3 (0.1-1.0); Monocytes % 6.9 % (1.7-9.3); Neutrophils # 4.9 K/mm3 (1.8-7.8); Neutrophils % 73.6 % (37.0-80.0); Platelet Count 305 K/mm3 (142-424); Potassium 4.7 mmoL/L (3.5-5.1); Red Blood Count 3.57 M/mm3 (4.60-6.20); Red Cell Distribution Width 18.4 % (11.5-17.5); Sodium 138 mmol/L (136-145); White Blood Count 6.7 K/mm3 (4.8-10.8)
[2023-04-14 06:21] LABS: Alanine Aminotransferase 43 U/L (12-78); Aspartate Amino Transferase 52 U/L (17-59); Blood Urea Nitrogen 44 mg/dl (9-20); Creatinine Clearance Estimated 46 mL/min (50-200); Estimated Glomerular Filt Rate 23 ml/min (>60); GFR (African American) 28 ML/MIN (>60)
[2023-04-14 06:22] LABS: Albumin Level 3.6 g/dl (3.5-5.0); Albumin/Globulin Ratio 1.1 (1.1-1.8); Alkaline Phosphatase 282 U/L (38-126); Anion Gap 13.7 mEq/L (5-15); Bilirubin,Total 0.8 mg/dl (0.2-1.3); Carbon Dioxide 24 mmol/L (22.0-30.0); Globulin 3.3 g/dL (1.3-3.2); Glucose 139 mg/dl (74-100); Total Protein,Serum 6.9 g/dl (6.3-8.2)
--- NOTE | 2023-04-14 06:30 | ED_ITS ---
Discharge Plan Disposition Patient Disposition: Admitted Condition: Fair Prescriptions Prescriptions: No Action spironolactone 25 mg tablet 25 mg PO DAILY 60 Days Qty: 60 2RF Entresto 97-103 mg tablet See Rx Instructions .ROUTE .COMPLEX Qty: 180 1RF Dose Instruction: Take 1 tablet by mouth twice daily Rx Instructions: Take 1 tablet by mouth twice daily metformin 1,000 mg tablet 1,000 mg PO BIDWMEAL Qty: 180 0RF atorvastatin 40 mg tablet See Rx Instructions .ROUTE .COMPLEX Qty: 90 3RF Dose Instruction: TAKE 2 TABLETS BY MOUTH AT BEDTIME NIGHTLY FOR CHOLESTEROL Rx Instructions: TAKE 2 TABLETS BY MOUTH AT BEDTIME NIGHTLY FOR CHOLESTEROL bumetanide 1 mg tablet 2 mg PO BID PRN (Reason: edema) Qty: 120 5RF Rx Instructions: Take 2 mg in morning and 1 mg in afternoon daily omeprazole 40 mg capsule,delayed release(DR/EC) 40 mg PO DAILY Trulicity 1.5 mg/0.5 mL pen injector 1.5 mg SQ WEEKLY albuterol sulfate 90 mcg/actuation HFA aerosol inhaler 2 puff inhalation QIDP PRN (Reason: shortness of breath or wheezing) fluticasone propionate 50 mcg/actuation Fisher,Suspension 1 spray INTRANASAL DAILY Rx Instructions: administer into each nostril bisoprolol fumarate 5 mg tablet 5 mg PO DAILY warfarin 2.5 mg Tablet 1.25 mg PO MOFR warfarin 2.5 mg Tablet 2.5 mg PO SUTUWETHSA amiodarone 200 mg tablet 200 mg PO BID clopidogrel 75 mg tablet 75 mg PO DAILY tramadol 50 mg tablet 50 mg PO Q8HP PRN (Reason: pain) nitroglycerin 0.4 mg tablet, sublingual 0.4 mg sublingual Q5MINP PRN (Reason: chest pain) Rx Instructions: do not exceed 3 doses per episode tizanidine 2 mg capsule 2 mg PO TIDP PRN (Reason: muscle spasticity) mecobalamin (vitamin B12) 1,000 mcg tablet,chewable 1,000 mcg PO DAILY bupropion HCl 150 mg tablet sustained-release 12 hr 150 mg PO BID Patient Comments: Take 1 tablet by mouth twice daily insulin glargine [Lantus Solostar U-100 Insulin] 100 unit/mL (3 mL) insulin pen 25 unit SQ HS Referrals Follow up/Referrals: Mal Barfield DO [Primary Care Provider] - See instructions Clinical Impressions Clinical Impression: Congestive heart failure, CKD (chronic kidney disease) Cellulitis Qualifiers: Site of cellulitis: extremity Site of cellulitis of extremity: lower extremity Laterality: unspecified laterality Qualified Code(s): L03.119 - Cellulitis of unspecified part of limb Discharge ED Provider: Sofy Jackson General Adult HPI General Chief complaint: Shortness of Breath/Dyspnea Stated complaint: swelling, pain and tingling in legs, soa Time Seen by Provider: 04/14/23 05:52 Mode of Arrival: Wheelchair Source of Information: Patient and Spouse Limitations: Physical Limitations Description of Symptoms (Recalled from ER Triage Doc. by RN): Pt presents with increased SOA and bilateral leg pain. Pt see wound care, had arterial doppler performed 2 days ago no results, increased his Bumex dose with no results. History of Present Illness HPI narrative: 57-year-old male with CKD, lymphedema, hypertension, hyperlipidemia, CAD, CHF presents to the ER with concerns of shortness of breath, pain and redness in the legs. Patient is taking 5 mg total of Bumex daily and continues having severe swelling in the legs. Family and patient states is getting worse and now up into the abdominal wall. Patient had venous and arterial Dopplers earlier this week but has not yet heard the results. I reviewed these results and they do not demonstrate any occlusion. Patient states he has had progressive leg wounds and his family at bedside states he did not tolerate the compressive wraps that were applied by wound care. They state they are concerned for infection in the legs. Patient denies fevers but states he is having progressive pain and redness. He states the redness originally started just in the feet but has progressed up the legs now up to the proximal daigle with worsening ulcers. Related Data Home Medications Medication Instructions Recorded Confirmed omeprazole 40 mg capsule,delayed 40 mg PO DAILY Acid reflux 03/21/22 03/20/23 release dulaglutide 1.5 mg/0.5 mL 1.5 mg SQ WEEKLY Diabetes 06/04/22 03/20/23 subcutaneous pen injector ([facility]) albuterol sulfate 90 mcg/actuation 2 puff inhalation QIDP PRN 06/05/22 03/20/23 aerosol inhaler shortness of breath or wheezing fluticasone propionate 50 1 spray intranasal DAILY Allergy 06/07/22 03/20/23 mcg/actuation nasal Symptoms spray,suspension bisoprolol fumarate 5 mg tablet 5 mg PO DAILY High Blood Pressure 06/17/22 03/20/23 bupropion HCl 150 mg tablet,12 hr 150 mg PO BID mood 01/10/23 03/20/23 sustained-release insulin glargine 100 unit/mL (3 25 unit SQ HS Diabetes 01/10/23 03/20/23 mL) subcutaneous pen (Lantus Solostar U-100 Insulin) amiodarone 200 mg tablet 200 mg PO BID Heart Rhythm 02/10/23 03/20/23 clopidogrel 75 mg tablet 75 mg PO DAILY Blood Thinner 02/10/23 03/20/23 mecobalamin (vitamin B12) 1,000 1,000 mcg PO DAILY Supplement 02/10/23 03/20/23 mcg chewable tablet nitroglycerin 0.4 mg sublingual 0.4 mg sublingual Q5MINP PRN chest 02/10/23 03/20/23 tablet pain tizanidine 2 mg capsule 2 mg PO TIDP PRN muscle spasticity 02/10/23 03/20/23 tramadol 50 mg tablet 50 mg PO Q8HP PRN pain 02/10/23 03/20/23 warfarin 2.5 mg tablet 1.25 mg PO MOFR Blood Thinner 02/10/23 03/20/23 warfarin 2.5 mg tablet 2.5 mg PO SUTUWETHSA LEFT 02/10/23 03/20/23 VENTRICLE THROMBUS Previous Rx's Medication Instructions Recorded sacubitril 97 mg-valsartan 103 mg See Rx Instructions .Route 02/15/23 tablet (Entresto) .COMPLEX #180 tabs spironolactone 25 mg tablet 25 mg PO DAILY Fluid 60 days #60 02/21/23 tabs metformin 1,000 mg tablet 1,000 mg PO BIDWMEAL Diabetes #180 03/13/23 tabs atorvastatin 40 mg tablet See Rx Instructions .Route 03/22/23 .COMPLEX #90 tabs bumetanide 1 mg tablet 2 mg PO BID PRN edema #120 tabs 03/23/23 Allergies Allergy/AdvReac Type Severity Reaction Status Date / Time No Known Allergies Allergy Verified 04/13/23 10:33 [facility] Disclaimer: The information contained in this section may have been updated after the patient was seen, as this information can be updated by other users. Medical History Acute exacerbation of CHF (congestive heart failure) Acute exacerbation of CHF (congestive heart failure) Acute hyperkalemia Arthritis Asthma CAD (coronary artery disease) Cardiac volume overload Chronic kidney disease, stage 3a Coronary artery disease Deviated nasal septum Diabetes Diabetes mellitus, type 2 Dizziness Dysphagia Dyspnea Esophagitis GERD (gastroesophageal reflux disease) Globus sensation H/O blood clots Heart failure with reduced ejection fraction History of heart attack History of stroke HLD (hyperlipidemia) Hoarseness HTN (hypertension) Hyperglycemia due to diabetes mellitus Hypertension Lymphedema Neuropathy NYHA class 3 heart failure with reduced ejection fraction PAF (paroxysmal atrial fibrillation) Smoker Systolic heart failure Tobacco dependence syndrome Typical angina Surgical History History of heart artery stent S/P CABG (coronary artery bypass graft) S/P CABG x 4 Family History Other Cancer Coronary artery disease Diabetes Hypertension Kidney disease Stroke Social History Smoking Status: Current some day smoker tobacco type: cigarettes packs per day: 1 second hand exposure: Yes alcohol intake: never counseling provided: none substance use type: denies use current occupational status: disabled and other Travel in the last 8 weeks: None household members: family housing: house caffeine: Yes ROS Obtained: Yes All systems reviewed & no additional complaints except as documented Constitutional Constitutional: Denies chills, Denies fever(s), Denies headache(s) and Denies weakness Eyes Eyes: Denies change in vision ENT Ears, Nose, Mouth, and Throat: Denies dizziness, Denies headache(s), Denies nasal congestion and Denies sore throat Cardiovascular Cardiovascular: Denies chest pain, Reports dyspnea, Reports leg edema and Repo rts leg ulcers Respiratory Respiratory: Denies cough and Reports dyspnea Gastrointestinal Gastrointestingal: Denies constipation, diarrhea, nausea or vomiting Genitourinary Male Genitourinary: Denies difficulty urinating Musculoskeletal Musculoskeletal: Denies arthralgias, Denies myalgias, Denies numbness and Denies tingling Integumentary/Breasts Skin/Breast: Denies change in pigmentation and Reports wounds (And redness on the bilateral lower extremities) Neurologic Neurologic: Denies dizziness, Denies headache(s), Denies numbness, Denies tingling and Denies weakness Physical Exam General General appearance: alert and in no apparent distress Head Head exam: atraumatic and normocephalic Eye Eye exam: Present PERRL and EOMI ENT ENT exam: Present mucous membranes moist Neck Neck exam: Present normal inspection and full ROM Chest Chest inspection: Present symmetric chest wall rise Respiratory Respiratory exam: Present wheezes (Faint bilateral end expiratory wheezing); Absent respiratory distress or stridor Cardiovascular Cardiovascular exam: Present regular rate and normal rhythm Abdominal Exam Abdominal exam: Present soft and other (Lower abdominal wall pitting edema); Absent distention, tenderness, guarding or rebound Extremities Exam Extremities exam: Present tenderness, edema and other (Pitting edema in the bilateral lower extremities, redness and heat of the bilateral feet, redness is extending up the shins with multiple areas of ulcerating wounds on the shins) Neurological Exam Neurological exam: Present alert and oriented X3; Absent motor sensory deficit Psychiatric Psychiatric exam: Present normal affect and normal mood Skin Skin exam: Present warm and dry Medical Decision Making Teddy Inquiry Pt receiving controlled substance: No Vital Signs: 04/14/23 05:46 Temperature 97.8 F Temperature Source Oral Pulse Rate [Left] 61 Respiratory Rate 22 Blood Pressure [Right Arm] 139/74 Blood Pressure Mean [Right Arm] 95 Blood Pressure Source [Right Arm] Automatic Cuff 02 Sat by Pulse Oximetry 98 Oxygen Delivery Method Room Air Lab Data Lab Results 04/14/23 05:55: WBC 6.7, RBC 3.57 L, Hgb 10.8 L, Hct 33.7 L, MCV 94.4 H, MCH 30.3, MCHC 32.1, RDW 18.4 H, Plt Count 305, MPV 8.1, Neut % (Auto) 73.6, Lymph % (Auto) 17.3, [place] % (Auto) 6.9, Eos % (Auto) 1.8, Baso % (Auto) 0.3, Neut # (Auto) 4.9, Lymph # (Auto) 1.2, [place] # (Auto) 0.5, Eos # (Auto) 0.1, Baso # (Auto) 0.0, Sodium 138, Potassium 4.7, Chloride 105, Carbon Dioxide 24, Anion Gap 13.7, BUN 44 H, Creatinine 2.80 H, Estimated Creat Clear 46, Estimated GFR 23 L, Est GFR ( Amer) 28 L, Glucose 139 H, Calcium 9.0, Total Bilirubin 0.8, AST 52, ALT 43, Alkaline Phosphatase 282 H, Troponin I 0.02, NT-Pro-B Natriuret Pep 81581 H, Total Protein 6.9, Albumin 3.6, Globulin 3.3 H, Albumin/Globulin Ratio 1.1 04/14/23 05:55 04/14/23 05:55 Orders (Tests/Meds): ED MEDICATIONS Generic Name Dose Route Start Last Admin Trade Name Freq PRN Reason Stop Dose Admin Bumetanide 4 mg 04/14/23 07:21 Bumetanide 1mg/4ml Vial IV 04/14/23 07:22 ONCE ONE Piperacillin Sod/Tazobactam 100 mls @ 200 mls/hr 04/14/23 06:15 04/14/23 06:45 Sod 4.5 gm/ Sodium Chloride IV 04/24/23 06:14 200 mls/hr Q6H KHURRAM Administration Vancomycin HCl 2,000 mg/ 500 mls @ 166 mls/hr 04/14/23 07:00 Sodium Chloride IV 04/14/23 10:00 ONCE ONE Bumetanide 10 mg/ Sodium 100 mls @ 5 mls/hr 04/14/23 07:23 Chloride IV 05/14/23 07:22 .Q20H KHURRAM Miscellaneous 1 each 04/14/23 06:15 Vancomycin Consult Request NOTAPPLIC 05/14/23 06:14 CONSULT PHARMACY KHURRAM Discontinued Medications Generic Name Dose Route Start Last Admin Trade Name Freq PRN Reason Stop Dose Admin Albuterol/Ipratropium 3 ml 04/14/23 06:06 Ipratropium/Albuterol 3 Ml Neb IH 04/14/23 06:07 ONCE ONE ORDERS Category Date Time Status Cardiology Consult [Consult to Cardiology] [CONS] Cons 04/14/23 07:21 Active Routine CXR --portable [XR chest portable] Stat Exams 04/14/23 06:06 Taken BNP [Brain Natriuretic Peptide] Stat Lab 04/14/23 05:55 Completed CBC w/Auto Diff [Complete Blood Count Auto Diff] Stat Lab 04/14/23 05:55 Completed CMP [Comprehensive Metabolic Panel] Stat Lab 04/14/23 05:55 Completed Complete Blood Count Auto Diff AMLAB Lab 04/15/23 06:00 Ordered Comprehensive Metabolic Panel AMLAB Lab 04/15/23 06:00 Ordered Magnesium AMLAB Lab 04/15/23 06:00 Ordered Trop I [Troponin I] Stat Lab 04/14/23 05:55 Completed Troponin I Q3H Lab 04/14/23 09:15 Ordered Troponin I Q3H Lab 04/14/23 12:15 Ordered Blood Culture Stat Micro 04/14/23 06:35 Received ECG Request Stat Y 04/14/23 06:06 Ordered Medical Decision Narrative: In summary, this 57year old male presents to the emergency department today with shortness of breath. On initial evaluation patient is hemodynamically stable but ill-appearing, sitting straight up in bed, bilateral end expiratory wheezing, significant pitting edema all the way up to his mid abdominal wall with findings of erythema, heat, and open ulcerations on the distal lower extremities but palpable distal pulses. Differential diagnosis includes but is not limited to CHF exacerbation, cellulitis, leukocytosis, anemia, pneumonia. Based on these concerns, I ordered cardiac workup, BNP, electrolytes, basic labs, chest x-ray, antibiotics to empirically cover soft tissue infection. ECG personally interpreted demonstrates sinus rhythm with first-degree AV block, rate 62, prolonged VA, right axis deviation, no STEMI, similar to prior based on my review of previous EKG. Patient received IV vancomycin and Zosyn for treatment. Labs personally reviewed demonstrate mild anemia, no leukocytosis, stable kidney dysfunction, no actionable electrolyte abnormalities, stable but severely elevated BNP, troponin mildly elevated at 0.02. Chest x-ray personally interpreted does not demonstrate any lobar infiltrate, no effusion, pulmonary edema present. See radiology read for final interpretation. On reassessment patient remains stable but requires admission for IV antibiotics and reassessment of his home management. I discussed this case with the hospitalist service. Dr. Mccarthy is concerned that patient is not responding to large doses of Bumex at home and continues having functional decline. I agree with his concerns. Patient will be admitted to the hospitalist service for continued management. Critical Care Critical Care Time Critical Care Time: No
[2023-04-14 06:31] LABS: NT Pro Brain Natriuretic Pep. 12200 pg/mL (0-125)
[2023-04-14 06:34] LABS: Troponin I 0.02 ng/ml (0.00-0.034)
[2023-04-14] MEDS: PIPERACILLIN/TAZO 4.5 GM in 0.9 % SODIUM CHLORIDE 100 ML IV (06:45)
--- NOTE | 2023-04-14 06:59 | ECG_ITS ---
APPROVED REPORT Exam: Resting ECG HR:62 bpm ECG Measurements Heart Rate 62 AXES OH 232 P 102 QRSd 145 QRS 165 QT 472 T 16 QTc 477 Conclusion SINUS RHYTHM WITH FIRST DEGREE AV BLOCK RIGHT AXIS DEVIATION [QRS AXIS > 100] INTRAVENTRICULAR CONDUCTION DELAY [130+ ms QRS DURATION] ABNORMAL ECG UNCONFIRMED REPORT Electronically signed by : Jarod Salter MD 04/15/2023 12:38:26
--- NOTE | 2023-04-14 07:20 | PC.NURSE ---
[employer] NOTIFIED OF ADMISSION
--- NOTE | 2023-04-14 07:39 | P.HP_ITS ---
History of Present Illness *Admission Date: 04/14/23 *Reason for visit:: shortness of breath *History of present illness: Mr. Zayas is a 57-year-old male well-known to our service who has a past medical history of CKD, CAD status post CABG x 4 10months ago, chronic anticoagulation on warfarin, paroxysmal A-fib, CHF, hypertension, hyperlipidemia, diabetes. He presented to the ER due to shortness of breath and increased swelling in his legs. States his shortness of breath is never really improved. Continues to have swelling in his legs. Swelling now up in his upper thighs and into his lower abdomen. Has followed with cardiology but continues to have worsening shortness of breath and swelling. Now having weeping from his legs bilaterally and significant pain. Both legs were red and warm. Workup in the ER showed elevation in BNP to 12k, creatinine of 2.8, potassium 4.7. BUN 44. Significant swelling in his legs with weeping from open wounds. Currently stable on room air. Weight over the past month is up 10 kg. Reports that he has been taking his spironolactone and Bumex, strong concern that he is not however given his weight gain and worsening edema. Denies any chest pain, nausea, vomiting, syncope. Dyspnea with any exertion. Unable to lay flat. No signifi cant change in urine output. ER consulted medicine for admission. After arrival to the floor, patient noted to have significant lower extremity edema, erythema, and open wounds on both legs with serous drainage. More distressed than last exam at previous visit. Cardiology consulted. Patient's at bedside, she helps facilitate his medications. States he has been compliant with his medications since last discharge. Also reports however that she does not seem to take his meds, she calls while at work to remind him and trusts him to take them. Supposedly they are gone when she gets home. [facility] Disclaimer: The information contained in this section may have been updated after the p rachelle was seen, as this information can be updated by other users. Medical History Acute exacerbation of CHF (congestive heart failure) Acute exacerbation of CHF (congestive heart failure) Acute hyperkalemia Arthritis Asthma CAD (coronary artery disease) Cardiac volume overload Chronic kidney disease, stage 3a Coronary artery disease Deviated nasal septum Diabetes Diabetes mellitus, type 2 Dizziness Dysphagia Dyspnea Esophagitis GERD (gastroesophageal reflux disease) Globus sensation H/O blood clots Heart failure with reduced ejection fraction History of heart attack History of stroke HLD (hyperlipidemia) Hoarseness HTN (hypertension) Hyperglycemia due to diabetes mellitus Hypertension Lymphedema Neuropathy NYHA class 3 heart failure with reduced ejection fraction PAF (paroxysmal atrial fibrillation) Smoker Systolic heart failure Tobacco dependence syndrome Typical angina Surgical History History of heart artery stent S/P CABG (coronary artery bypass graft) S/P CABG x 4 Family History Diabetes Coronary artery disease Kidney disease Cancer Hypertension Stroke Social History Smoking Status: Current some day smoker tobacco type: cigarettes packs per day: 1 second hand exposure: Yes alcohol intake: never counseling provided: none substance use type: denies use current occupational status: disabled and other Travel in the last 8 weeks: None household members: family housing: house caffeine: Yes Review of Systems Review of Systems Review of systems (narrative): 14 point review of systems performed, pertinent positives and negatives as per HPI Constitutional Constitutional: Denies headache(s) and Denies weakness ENT Ears, Nose, Mouth, and Throat: Denies dizziness and Denies headache(s) *Musculoskeletal Musculoskeletal: Denies numbness and Denies tingling *Neurologic Neurologic: Denies dizziness, Denies headache(s), Denies numbness, Denies tingling and Denies weakness Meds Home Medications and Allergies Home Medications Medication Instructions Recorded Confirmed Type omeprazole 40 mg capsule,delayed 40 mg PO DAILY Acid reflux 03/21/22 04/14/23 History release dulaglutide 1.5 mg/0.5 mL 1.5 mg SQ WEEKLY Diabetes 06/04/22 04/14/23 History subcutaneous pen injector (Trulicity) albuterol sulfate 90 mcg/actuation 2 puff inhalation QIDP PRN 06/05/22 04/14/23 History aerosol inhaler shortness of breath or wheezing fluticasone propionate 50 1 spray intranasal DAILY Allergy 06/07/22 04/14/23 History mcg/actuation nasal Symptoms spray,suspension bisoprolol fumarate 5 mg tablet 5 mg PO DAILY High Blood Pressure 06/17/22 04/14/23 History bupropion HCl 150 mg tablet,12 hr 150 mg PO BID mood 01/10/23 04/14/23 History sustained-release insulin glargine 100 unit/mL (3 25 unit SQ HS Diabetes 01/10/23 04/14/23 History mL) subcutaneous pen (Lantus Solostar U-100 Insulin) amiodarone 200 mg tablet 200 mg PO BID Heart Rhythm 02/10/23 04/14/23 History clopidogrel 75 mg tablet 75 mg PO DAILY Blood Thinner 02/10/23 04/14/23 History mecobalamin (vitamin B12) 1,000 1,000 mcg PO DAILY Supplement 02/10/23 04/14/23 History mcg chewable tablet nitroglycerin 0.4 mg sublingual 0.4 mg sublingual Q5MINP PRN chest 02/10/23 04/14/23 History tablet pain tizanidine 2 mg capsule 2 mg PO TIDP PRN muscle spasticity 02/10/23 04/14/23 History tramadol 50 mg tablet 50 mg PO Q8HP PRN pain 02/10/23 04/14/23 History warfarin 2.5 mg tablet 2.5 mg PO DAILY LEFT VENTRICLE 02/10/23 04/14/23 History THROMBUS spironolactone 25 mg tablet 25 mg PO DAILY Fluid 60 days #60 02/21/23 04/14/23 Rx tabs metformin 1,000 mg tablet 1,000 mg PO BIDWMEAL Diabetes #180 03/13/23 04/14/23 Rx tabs bumetanide 1 mg tablet 2 mg PO BID PRN edema #120 tabs 03/23/23 04/14/23 Rx atorvastatin 80 mg tablet 80 mg PO DAILY #30 tabs 04/14/23 04/14/23 Rx sacubitril 97 mg-valsartan 103 mg 1 tab PO BID 04/14/23 04/14/23 History tablet (Entresto) New Prescriptions to Start Prescriptions: Allergies Allergy/AdvReac Type Severity Reaction Status Date / Time No Known Allergies Allergy Verified 04/13/23 10:33 Exam Data for Last 24 hours Vital signs and Labs for Last 24 Hours: Temp Pulse Resp BP Pulse Ox O2 Del Method 97.8 F 61 22 139/74 98 Room Air 04/14/23 05:46 04/14/23 05:46 04/14/23 05:46 04/14/23 05:46 04/14/23 05:46 04/14/23 05:46 Laboratory Results - last 24 hr 04/14/23 05:55: WBC 6.7, RBC 3.57 L, Hgb 10.8 L, Hct 33.7 L, MCV 94.4 H, MCH 30.3, MCHC 32.1, RDW 18.4 H, Plt Count 305, MPV 8.1, Neut % (Auto) 73.6, Lymph % (Auto) 17.3, [place] % (Auto) 6.9, Eos % (Auto) 1.8, Baso % (Auto) 0.3, Neut # (Auto) 4.9, Lymph # (Auto) 1.2, [place] # (Auto) 0.5, Eos # (Auto) 0.1, Baso # (Auto) 0.0, Sodium 138, Potassium 4.7, Chloride 105, Carbon Dioxide 24, Anion Gap 13.7, BUN 44 H, Creatinine 2.80 H, Estimated Creat Clear 46, Estimated GFR 23 L, Est GFR ( Amer) 28 L, Glucose 139 H, Calcium 9.0, Total Bilirubin 0.8, AST 52, ALT 43, Alkaline Phosphatase 282 H, Troponin I 0.02, NT-Pro-B Natriuret Pep 98841 H, Total Protein 6.9, Albumin 3.6, Globulin 3.3 H, Albumin/Globulin Ratio 1.1 I & O for Last 24 hours: Intake & Output 04/11/23 04/12/23 04/13/23 04/14/23 23:59 23:59 23:59 23:59 Weight 113.398 kg Constitutional Constitutional: mild distress, obese, chronically ill appearing, disheveled and cooperative *Routine HEENT Exam Head: Present normocephalic and atraumatic Eye: Present EOMI and PERRL ENT: Present mucous membranes moist *Routine Neck Exam Neck: Present supple; Absent JVD Routine Chest/Breast/Axilla Exam Chest wall: Absent tenderness Comments: Healed midline scar *Routine Respiratory Exam Respiratory: Present crackles (In bases) and normal respiratory effort; Absent accessory muscle use, respiratory distress, rhonchi or wheezes *Routine Cardiovascular Exam Cardiovascular: Present RRR and murmur *Routine Abdominal Exam Abdominal: Present soft and normoactive bowel sounds; Absent tenderness or distended Comments: edema in pannus *Routine Rectal Exam Rectal:: deferred *Routine Genitalia Exam Genitalia:: normal male Comment:: edematous, gonzalez in place *Routine Extremities Exam Extremities: Present edema (3+ to thighs) and pallor; Absent cyanosis or clubbing *Routine Skin Exam Skin: Present intact and pallor; Absent cyanosis or erythema *Routine Neurological Exam Neurological: Present alert, oriented X3, CN II-XII intact and normal speech; Absent sensory deficit or altered mental status Routine Psychiatric Exam Psychiatric: Present normal affect and normal thought process; Absent suicidal ideation or homicidal ideation Assessment and Plan *Assessment and plan (1) Acute exacerbation of CHF (congestive heart failure): Status: Inactive Category: Medical Code(s): I50.9 - Heart failure, unspecified (2) NYHA class 3 heart failure with reduced ejection fraction: Problem Comment: Patient is following with cardiology. Status: Acute Category: Medical Code(s): I50.20 - Unspecified systolic (congestive) heart failure (3) Chronic kidney disease, stage 3a: Status: Acute Category: Medical Code(s): N18.31 - Chronic kidney disease, stage 3a (4) S/P CABG (coronary artery bypass graft): Status: Inactive Category: Surgical Code(s): Z95.1 - Presence of aortocoronary bypass graft (5) PAF (paroxysmal atrial fibrillation): Status: Acute Category: Medical Code(s): I48.0 - Paroxysmal atrial fibrillation (6) CAD (coronary artery disease): Status: Acute Qualifiers: Coronary Disease-Associated Artery/Lesion type: [place] artery [place] vs. transplanted heart: [place] heart Associated angina: without angina Qualified Code(s): I25.10 - Atherosclerotic heart disease of [place] coronary artery without angina pectoris Category: Medical Code(s): I25.10 - Atherosclerotic heart disease of [place] coronary artery without angina pectoris (7) GERD (gastroesophageal reflux disease): Status: Inactive Category: Medical Code(s): K21.9 - Gastro-esophageal reflux disease without esophagitis (8) Tobacco dependence syndrome: Problem Comment: Patient strongly encouraged to quit tobacco, however patient has adamantly refused to quit smoking. Status: Acute Category: Medical Code(s): F17.200 - Nicotine dependence, unspecified, uncomplicated (9) HLD (hyperlipidemia): Status: Acute Qualifiers: Hyperlipidemia type: mixed hyperlipidemia Qualified Code(s): E78.2 - Mixed hyperlipidemia Category: Medical Code(s): E78.5 - Hyperlipidemia, unspecified (10) HTN (hypertension): Problem Comment: I do question the compliance of this patient with his medications. He is on a very complicated medical regimen when I look at his blood pressures over the past year or 2 his pressures have gone up here at the clinic. He is not checking his blood pressures at home. Will continue with current medications however we will discuss with Nany here at the clinic options for this ramakrishna. 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 terminal operator insulin use: without snf use Diabetes mellitus complication status: with other specified complication Qualified Code(s): E11.69 - Type 2 diabetes mellitus with other specified complication Category: Medical Code(s): E11.9 - Type 2 diabetes mellitus without complications (12) Cellulitis: Status: Acute Qualifiers: Laterality: unspecified laterality Site of cellulitis: extremity Site of cellulitis of extremity: lower extremity Qualified Code(s): L03.119 - Cellulitis of unspecified part of limb Category: Medical Code(s): L03.90 - Cellulitis, unspecified Plan 57-year-old status post CABG x4 10 months ago who presented to the ER because of worsening shortness of breath. Found to have acute exacerbation of his chronic CHF. Discussed case with ER, request admission for diuresis, antibiotics for possible cellulitis of his legs, and cardiology eval. Medicine agreed to admit. Initiated on diuretics with Bumex drip, Gonzalez placed for strict output. Already having significant response in starting medications. Necessitates inpatient treatment. Problems addressed as follows: Acute on chronic CHF NYHA class III heart failure History of CABG x 4 Paroxysmal A-fib Hyperlipidemia -Cardiology consulted, appreciate their recommendations.? For diuresis at home. Initiate Bumex drip with Gonzalez for strict monitoring of output. Monitor electrolytes closely. - continue bisoprolol 5 mg daily, Jardiance 10 mg daily, Entresto 24/26 mg twice daily, amiodarone 40 mg twice daily, Lipitor 80 mg nightly, isosorbide 60 mg daily -Holding Plavix and warfarin in the setting of planned scope next week. Will currently treat with Lovenox 1 mg/kg daily for renal dosing. -Continue home spironolactone 50 mg daily. Initiate metolazone 5 mg daily -AICD in place, monitor on continuous telemetry. -Potassium 4.7, BNP 12,000 -Repeat CBC, CMP, magnesium ordered for the morning. -Supplemental oxygen as needed, goal sats greater 90%. Cellulitis: Concern for cellulitis in his legs with weeping wounds. Wound consult placed for Unna boots and treatment of open wounds. Continue antibiotics with cefepime 2 g twice daily. White cell count normal at 6.7. Monitor for improvement Type 2 diabetes -Insulin-dependent. A1c controlled at 6.6 on previous visit. Continued home glargine and sliding scale insulin - FSGS ACHS. Continued home Wellbutrin for mood Holding warfarin Full code Cardiac diet Continue warfarin, INR 2.2, therapeutic TLOV
--- NOTE | 2023-04-14 07:41 | PC.NURSE ---
Report called to Pamella RODRIGES
[2023-04-14 07:46] VITALS: BP 143/66; PULSE 62; RESP 16; TEMP 36.6; O2SAT 100
--- NOTE | 2023-04-14 07:47 | PC.NURSE ---
arrived by w/c from ED
[2023-04-14 07:53] LABS: INR 2.21 (0.9-1.1); Prothrombin Time 22.7 seconds (10.1-12.5)
[2023-04-14 08:26] VITALS: BP 142/66; PULSE 61; RESP 20; TEMP 36.6; O2SAT 100; BMI 35.3
--- NOTE | 2023-04-14 08:59 | P.CONPHA_ITS ---
Pharmacy Consult Date: 04/14/23 Time: 08:59 Referring provider: DR. PULLIAM Reason for Consult:: VANCOMYCIN DOSING Allergies Allergy/AdvReac Type Severity Reaction Status Date / Time No Known Allergies Allergy Verified 04/13/23 10:33 Home Medications Medication Instructions Recorded Confirmed Type omeprazole 40 mg capsule,delayed 40 mg PO DAILY Acid reflux 03/21/22 04/14/23 History release dulaglutide 1.5 mg/0.5 mL 1.5 mg SQ WEEKLY Diabetes 06/04/22 04/14/23 History subcutaneous pen injector (Trulicity) albuterol sulfate 90 mcg/actuation 2 puff inhalation QIDP PRN 06/05/22 04/14/23 History aerosol inhaler shortness of breath or wheezing fluticasone propionate 50 1 spray intranasal DAILY Allergy 06/07/22 04/14/23 History mcg/actuation nasal Symptoms spray,suspension bisoprolol fumarate 5 mg tablet 5 mg PO DAILY High Blood Pressure 06/17/22 04/14/23 History bupropion HCl 150 mg tablet,12 hr 150 mg PO BID mood 01/10/23 04/14/23 History sustained-release insulin glargine 100 unit/mL (3 25 unit SQ HS Diabetes 01/10/23 04/14/23 History mL) subcutaneous pen (Lantus Solostar U-100 Insulin) amiodarone 200 mg tablet 200 mg PO BID Heart Rhythm 02/10/23 04/14/23 History clopidogrel 75 mg tablet 75 mg PO DAILY Blood Thinner 02/10/23 04/14/23 History mecobalamin (vitamin B12) 1,000 1,000 mcg PO DAILY Supplement 02/10/23 04/14/23 History mcg chewable tablet nitroglycerin 0.4 mg sublingual 0.4 mg sublingual Q5MINP PRN chest 02/10/23 04/14/23 History tablet pain tizanidine 2 mg capsule 2 mg PO TIDP PRN muscle spasticity 02/10/23 04/14/23 History tramadol 50 mg tablet 50 mg PO Q8HP PRN pain 02/10/23 04/14/23 History warfarin 2.5 mg tablet 2.5 mg PO DAILY LEFT VENTRICLE 02/10/23 04/14/23 History THROMBUS spironolactone 25 mg tablet 25 mg PO DAILY Fluid 60 days #60 02/21/23 04/14/23 Rx tabs metformin 1,000 mg tablet 1,000 mg PO BIDWMEAL Diabetes #180 03/13/23 04/14/23 Rx tabs bumetanide 1 mg tablet 2 mg PO BID PRN edema #120 tabs 03/23/23 04/14/23 Rx atorvastatin 40 mg tablet 80 mg PO DAILY 04/14/23 04/14/23 History sacubitril 97 mg-valsartan 103 mg 1 tab PO BID 04/14/23 04/14/23 History tablet (Entresto) New Prescriptions to Start Prescriptions: Height: 1.75 m Weight: 108.522 kg Laboratory Results:: Laboratory Results - last 24 hr 04/14/23 05:55: WBC 6.7, RBC 3.57 L, Hgb 10.8 L, Hct 33.7 L, MCV 94.4 H, MCH 30.3, MCHC 32.1, RDW 18.4 H, Plt Count 305, MPV 8.1, Neut % (Auto) 73.6, Lymph % (Auto) 17.3, [place] % (Auto) 6.9, Eos % (Auto) 1.8, Baso % (Auto) 0.3, Neut # (Auto) 4.9, Lymph # (Auto) 1.2, [place] # (Auto) 0.5, Eos # (Auto) 0.1, Baso # (Auto) 0.0, PT 22.7 H, INR 2.21 H, Sodium 138, Potassium 4.7, Chloride 105, Carbon Dioxide 24, Anion Gap 13.7, BUN 44 H, Creatinine 2.80 H, Estimated Creat Clear 46, Estimated GFR 23 L, Est GFR ( Amer) 28 L, Glucose 139 H, Calcium 9.0, Total Bilirubin 0.8, AST 52, ALT 43, Alkaline Phosphatase 282 H, Troponin I 0.02, NT-Pro-B Natriuret Pep 77960 H, Total Protein 6.9, Albumin 3.6, Globulin 3.3 H, Albumin/Globulin Ratio 1.1 Medical History: Medical History (Updated 04/14/23 @ 07:25 by Sofy Jackson MD) Acute exacerbation of CHF (congestive heart failure) Acute exacerbation of CHF (congestive heart failure) Acute hyperkalemia Arthritis Asthma CAD (coronary artery disease) Cardiac volume overload Chronic kidney disease, stage 3a Coronary artery disease Deviated nasal septum Diabetes Diabetes mellitus, type 2 Dizziness Dysphagia Dyspnea Esophagitis GERD (gastroesophageal reflux disease) Globus sensation H/O blood clots Heart failure with reduced ejection fraction History of heart attack History of stroke HLD (hyperlipidemia) Hoarseness HTN (hypertension) Hyperglycemia due to diabetes mellitus Hypertension Lymphedema Neuropathy NYHA class 3 heart failure with reduced ejection fraction PAF (paroxysmal atrial fibrillation) Smoker Systolic heart failure Tobacco dependence syndrome Typical angina Assessment and Plan Assessment and plan all Dx Assessment and Plan for all problems:: Pharmacokinetic dosing service Objective: Patient: Floor: Age: 57 yo Serum creatinine: 2.8 mg/dL Height: 69.0 Inches Weight (kg): 108.5 Assessment: IBW (kg): 70.70 Dosing wt(kg): 108.5 Estimated Creatinine clearance (ml/min): 28.4 CRCL method: Cockcroft and Gault using ibw(default). Drug selected: Vancomycin Loading dose (mg): 0 Vd (liters): 92.2 (factor used: 0.85 L/kg) Patrick (hr-1): 0.028 Half life (hrs): 24.76 Recommended dose: 1500 mg Interval: 24 hrs Infusion time (hrs): 2.0 Predicted peak (mcg/mL): 32.3 Predicted trough (mcg/mL): 17.45 Total body weight is being used for vancomycin dosing. Recommendations: Give Vancomycin 1500 mg q 24 hrs with an expected Cpeak of 32.3 mcg/ml and an expected Ctrough of 17.45 mcg/ml ----Vanco only - ignore for aminoglycosides----- CLvanco= 2.58 L/hr AUC 0-24 /ANNETTE Data: ANNETTE 0.5 mcg/mL: AUC/ANNETTE: 1162.8 ANNETTE 1.0 mcg/mL: AUC/ANNETTE: 581.4 --------- ANNETTE 1.5 mcg/mL: AUC/ANNETTE: 387.6 ANNETTE 2.0 mcg/mL: AUC/ANNETTE: 290.7
--- NOTE | 2023-04-14 09:01 | HMH.PHAINT1 ---
Pharmacy Intervention Comments: Verified home medications using external fill history and spoke with patient's who was in patient's room at bedside.
[2023-04-14] MEDS: BUMETANIDE 1MG/4ML VIAL 4 MG IV (09:09)
[2023-04-14] MEDS: BUMETANIDE 10 MG in 0.9 % SODIUM CHLORIDE 60 ML 5 MG IV ×2 (09:10→22:41)
[2023-04-14] MEDS: AMIODARONE 200MG TABLET 200 MG PO ×2 (09:10→20:16)
[2023-04-14] MEDS: buPROPion HCl SR 150MG TAB 150 MG PO (09:11)
[2023-04-14] MEDS: ATORVASTATIN 40MG TABLET 40 MG PO (09:11)
[2023-04-14] MEDS: BISOPROLOL 5MG TABLET 5 MG PO (09:11)
[2023-04-14] MEDS: SPIRONOLACTONE 25MG TABLET 50 MG PO (09:11)
[2023-04-14] MEDS: CEFEPIME HCL 2 GM in 0.9 % SODIUM CHLORIDE 100 ML IV ×2 (09:17→21:59)
[2023-04-14 09:28] LABS: Hemoglobin A1C 7.6 % (4.0-6.0)
[2023-04-14] MEDS: TRAMADOL 50MG TABLET 50 MG PO (09:43)
[2023-04-14 09:46] LABS: Troponin I 0.02 ng/ml (0.00-0.034)
[2023-04-14] MEDS: IPRATROPIUM/ALBUTEROL 3 ML NEB IH (09:57)
--- NOTE | 2023-04-14 10:12 | HMH.PTWOUND ---
Rehab Inpt Wound Evaluation Rehab IP Wound Evaluation Start: 04/14/23 08:48 Freq: ONCE Status: Active Protocol: Document 04/14/23 10:03 JESUS (Rec: 04/14/23 10:12 PHOMARINO [id number]) Rehab PT Wound Assessment Subjective Subjective 57 yowm adm to [facility] with CHF exacerbation. He has PMH of CAD with CABG x 4v and stents, CKD, DM, CHF, HTN. He lives with his and requires assistance with most, if not all, ADLs. He generally uses a cane for ambulation at baseline. He presents with B anterior lower leg wounds on adm and c/o severe B LE pain. Wound Left Lower Lateral Leg Wound Type Stasis Ulcer Is This a Chronic Wound Yes Wound Length (cm) 2.3 Wound Width (cm) 0.7 Wound Depth (cm) 0.1 Wound Bed Appearance Yellow Percentage of Slough (%) 100 Wound Margins Description Well Defined Surrounding Tissue Appearance Bright Red Edema Type Pitting Edema Degree 1+ Query Text:1+ Trace, Barely Detectable, Rebound 15-30 seconds 2+ Moderate, Slight Indentation, Rebound 10-20 seconds 3+ Deep, Deeper Indentation, Rebound > 30 seconds 4+ Very Deep, Rebound > 60 seconds Edema Appearance Weeping,Shiny,Tight,Red Surrounding Tissue Temperature Warm Wound Drainage Description Serous Drainage Amount Small Wound Topical Solution/Irrigant Saline Irrigant Primary Dressing Composite Comment bordered foam dressing Wound Debridement Method Gauze,Mechanical Wound Debridement Amount of Tissue Minimal Removed Dressing Change Patient Tolerance Tolerated Poorly Plan/Recommendation Comment Currently compression via unna boot or equivalent dressing would be contraindicated due to large volume of pitting edema in B thighs and abdomen. Wounds appear to be superficial at this time, but difficult to debride as pt is c/o 10/10 pain at rest in B lower legs. Most likely elevation of B LE with continue to decrease wound drainage. Will follow and continue as needed for debridement. Dressing changes to be performed by [facility] staff as needed depending on drainage. Eval Complexity Eval Charge Codes 43664 - High Complexity PHYSICIAN CERTIFICATION: I certify the specified therapy services for Matthew Zayas are required, authorized, and reviewed every 30 days.
[2023-04-14] MEDS: metOLazone 2.5MG TABLET 5 MG PO (10:13)
[2023-04-14] MEDS: ISOSORBIDE MONO 60MG TAB.ER.24H 60 MG PO (10:14)
[2023-04-14] MEDS: EMPAGLIFLOZIN 10MG TABLET 10 MG PO (10:14)
[2023-04-14] MEDS: HYDRALAZINE HCL 25MG TABLET 25 MG PO ×3 (10:14→20:16)
[2023-04-14] MEDS: VANCOMYCIN/WATER FOR INJ (PEG) 1.5 GM/300 ML PIGGYBACK IV (10:15)
[2023-04-14] MEDS: MAGNESIUM SULFATE IN WATER 2 GM/50 ML PIGGYBACK IV (10:41)
--- NOTE | 2023-04-14 11:04 | PC.NURSE ---
COURTESY TECH NOTE; ASSISTED PRIMARY TECH WITH BATHING AND PARTIAL BED CHANGE. NURSE MADE AWARE THAT PT C/O PAIN IN BILATERAL LOWER EXTREMITIES. ACTIVITY TOLERATED WELL. ICE WATER BROUGHT AT PT REQUEST, CALL LIGHT WITHIN REACH, NO FURTHER REQUESTS AT THIS TIME. Amira ROSAS, SRNA
--- NOTE | 2023-04-14 11:26 | EXP.CARD.CON ---
History of Present Illness History of Present Illness Consult date: 04/14/23 Requesting physician: Matthew Mccarthy Consult reason: congestive heart failure Chief complaint: SOA History of present illness: 57-year-old white male established patient of our office with extensive cardiac history including CAD status post CABG with mitral valve annuloplasty ring repair and left atrial appendage clipping April 2022. He also has hypertension, atrial fibrillation, HFrEF with EF 20 to 25% status post ICD. He is currently on Coumadin for possible LV thrombus. He has CKD with baseline creatinine 2.2. Patient has historically had questionable compliance with his medications. His is bedside and states he occasionally misses diuretics and has a heavy salt and sugar intake at home. He came to the emergency room yesterday severely short of breath with wheezing sitting upright. He has pitting edema from his ankles up to both flanks along with open wounds and unwashed skin. Labs reveal creatinine 2.8, GFR 23, proBNP 12,000 which is unchanged from 1 year ago. His troponin is normal and chest x-ray is clear. Patient today complaining of severe muscle cramps from diuresis. He is on Bumex 0.5 mg/h and antibiotics. [facility] Disclaimer: The information contained in this section may have been updated after the patient was seen, as this information can be updated by other users. Medical History Acute exacerbation of CHF (congestive heart failure) Acute exacerbation of CHF (congestive heart failure) Acute hyperkalemia Arthritis Asthma CAD (coronary artery disease) Cardiac volume overload Chronic kidney disease, stage 3a Coronary artery disease Deviated nasal septum Diabetes Diabetes mellitus, type 2 Dizziness Dysphagia Dyspnea Esophagitis GERD (gastroesophageal reflux disease) Globus sensation H/O blood clots Heart failure with reduced ejection fraction History of heart attack History of stroke HLD (hyperlipidemia) Hoarseness HTN (hypertension) Hyperglycemia due to diabetes mellitus Hypertension Lymphedema Neuropathy NYHA class 3 heart failure with reduced ejection fraction PAF (paroxysmal atrial fibrillation) Smoker Systolic heart failure Tobacco dependence syndrome Typical angina Surgical History History of heart artery stent S/P CABG (coronary artery bypass graft) S/P CABG x 4 Family History Other Cancer Coronary artery disease Diabetes Hypertension Kidney disease Stroke Social History Smoking Status: Current some day smoker tobacco type: cigarettes packs per day: 1 second hand exposure: Yes alcohol intake: never counseling provided: none substance use type: denies use current occupational status: disabled and other Travel in the last 8 weeks: None household members: family housing: house caffeine: Yes Review of Systems Constitutional Constitutional: Denies headache(s) and Denies weakness Eyes Eyes: Denies loss of vision ENT Ears, Nose, Mouth, and Throat: Denies dizziness and Denies headache(s) *Cardiovascular Cardiovascular: Denies chest pain and Reports dyspnea *Respiratory Respiratory: Reports cough, Reports dyspnea and Reports wheezing *Gastrointestinal Gastrointestinal: Denies change in stool character, Denies nausea and Denies vomiting *Genitourinary Genitourinary: Denies difficulty urinating *Musculoskeletal Musculoskeletal: Reports muscle cramps, Denies numbness and Denies tingling Integumentary/Breasts Skin/Breast: Reports nail changes, Reports change in pigmentation, Denies changing lesions, Reports erythema, Reports new lesions, Reports non-healing lesions, Reports skin ulcer and Reports wounds *Neurologic Neurologic: Denies dizziness, Denies headache(s), Denies loss of vision, Denies numbness, Denies tingling and Denies weakness Allergic/Immunologic Allergic/Immunologic: Reports wheezing Exam Data for Last 24 hours Vital signs and Labs for Last 24 Hours: Temp Pulse Resp BP Pulse Ox O2 Del Method 97.9 F 61 20 142/66 H 100 Room Air 04/14/23 08:26 04/14/23 08:26 04/14/23 08:26 04/14/23 08:26 04/14/23 08:26 04/14/23 08:26 Laboratory Results - last 24 hr 04/14/23 05:55: WBC 6.7, RBC 3.57 L, Hgb 10.8 L, Hct 33.7 L, MCV 94.4 H, MCH 30.3, MCHC 32.1, RDW 18.4 H, Plt Count 305, MPV 8.1, Neut % (Auto) 73.6, Lymph % (Auto) 17.3, [place] % (Auto) 6.9, Eos % (Auto) 1.8, Baso % (Auto) 0.3, Neut # (Auto) 4.9, Lymph # (Auto) 1.2, [place] # (Auto) 0.5, Eos # (Auto) 0.1, Baso # (Auto) 0.0, PT 22.7 H, INR 2.21 H, Sodium 138, Potassium 4.7, Chloride 105, Carbon Dioxide 24, Anion Gap 13.7, BUN 44 H, Creatinine 2.80 H, Estimated Creat Clear 46, Estimated GFR 23 L, Est GFR ( Amer) 28 L, Glucose 139 H, Hemoglobin A1c 7.6 H, Calcium 9.0, Total Bilirubin 0.8, AST 52, ALT 43, Alkaline Phosphatase 282 H, Troponin I 0.02, NT-Pro-B Natriuret Pep 32555 H, Total Protein 6.9, Albumin 3.6, Globulin 3.3 H, Albumin/Globulin Ratio 1.1 04/14/23 09:18: Troponin I 0.02 I & O for Last 24 hours: Intake & Output 04/11/23 04/12/23 04/13/23 04/14/23 23:59 23:59 23:59 23:59 Weight 239 lb 4 oz Constitutional Constitutional: no acute distress and cooperative *Routine HEENT Exam Eye: Present PERRL *Routine Respiratory Exam Respiratory: Present CTA bilaterally; Absent accessory muscle use, wheezes or crackles *Routine Cardiovascular Exam Cardiovascular: Present RRR, Normal S1 and Normal S2; Absent murmur, gallop or rubs *Routine Abdominal Exam Abdominal: Present soft; Absent tenderness *Routine Extremities Exam Extremities: Present edema and pulses intact; Absent cyanosis Comments: Severe pitting edema from ankles to bilateral flanks. From knees down he has very erythematous skin with numerous old and new nonhealing ulcerations and weeping edema. He has severe nail discoloration and soiled skin *Routine Skin Exam Skin: Present intact; Absent erythema or wounds *Routine Neurological Exam Neurological: Present alert and oriented X3 Routine Psychiatric Exam Psychiatric: Present cooperative Meds Home Medications and Allergies Home Medications Medication Instructions Recorded Confirmed Type omeprazole 40 mg capsule,delayed 40 mg PO DAILY Acid reflux 03/21/22 04/14/23 History release dulaglutide 1.5 mg/0.5 mL 1.5 mg SQ WEEKLY Diabetes 06/04/22 04/14/23 History subcutaneous pen injector (Trulicity) albuterol sulfate 90 mcg/actuation 2 puff inhalation QIDP PRN 06/05/22 04/14/23 History aerosol inhaler shortness of breath or wheezing fluticasone propionate 50 1 spray intranasal DAILY Allergy 06/07/22 04/14/23 History mcg/actuation nasal Symptoms spray,suspension bisoprolol fumarate 5 mg tablet 5 mg PO DAILY High Blood Pressure 06/17/22 04/14/23 History bupropion HCl 150 mg tablet,12 hr 150 mg PO BID mood 01/10/23 04/14/23 History sustained-release insulin glargine 100 unit/mL (3 25 unit SQ HS Diabetes 01/10/23 04/14/23 History mL) subcutaneous pen (Lantus Solostar U-100 Insulin) amiodarone 200 mg tablet 200 mg PO BID Heart Rhythm 02/10/23 04/14/23 History clopidogrel 75 mg tablet 75 mg PO DAILY Blood Thinner 02/10/23 04/14/23 History mecobalamin (vitamin B12) 1,000 1,000 mcg PO DAILY Supplement 02/10/23 04/14/23 History mcg chewable tablet nitroglycerin 0.4 mg sublingual 0.4 mg sublingual Q5MINP PRN chest 02/10/23 04/14/23 History tablet pain tizanidine 2 mg capsule 2 mg PO TIDP PRN muscle spasticity 02/10/23 04/14/23 History tramadol 50 mg tablet 50 mg PO Q8HP PRN pain 02/10/23 04/14/23 History warfarin 2.5 mg tablet 2.5 mg PO DAILY LEFT VENTRICLE 02/10/23 04/14/23 History THROMBUS spironolactone 25 mg tablet 25 mg PO DAILY Fluid 60 days #60 02/21/23 04/14/23 Rx tabs metformin 1,000 mg tablet 1,000 mg PO BIDWMEAL Diabetes #180 03/13/23 04/14/23 Rx tabs bumetanide 1 mg tablet 2 mg PO BID PRN edema #120 tabs 03/23/23 04/14/23 Rx atorvastatin 80 mg tablet 80 mg PO DAILY #30 tabs 04/14/23 04/14/23 Rx sacubitril 97 mg-valsartan 103 mg 1 tab PO BID 04/14/23 04/14/23 History tablet (Entresto) New Prescriptions to Start Prescriptions: Allergies Allergy/AdvReac Type Severity Reaction Status Date / Time No Known Allergies Allergy Verified 04/13/23 10:33 Assessment and Plan *Assessment and plan (1) Acute exacerbation of CHF (congestive heart failure): Status: Inactive Category: Medical Code(s): I50.9 - Heart failure, unspecified (2) NYHA class 3 heart failure with reduced ejection fraction: Problem Comment: Patient is following with cardiology. Status: Acute Category: Medical Code(s): I50.20 - Unspecified systolic (congestive) heart failure (3) Chronic kidney disease, stage 3a: Status: Acute Category: Medical Code(s): N18.31 - Chronic kidney disease, stage 3a (4) S/P CABG (coronary artery bypass graft): Status: Inactive Category: Surgical Code(s): Z95.1 - Presence of aortocoronary bypass graft (5) PAF (paroxysmal atrial fibrillation): Status: Acute Category: Medical Code(s): I48.0 - Paroxysmal atrial fibrillation (6) CAD (coronary artery disease): Status: Acute Qualifiers: Associated angina: without angina Coronary Disease-Associated Artery/Lesion type: [place] artery [place] vs. transplanted heart: [place] heart Qualified Code(s): I25.10 - Atherosclerotic heart disease of [place] coronary artery without angina pectoris Category: Medical Code(s): I25.10 - Atherosclerotic heart disease of [place] coronary artery without angina pectoris (7) GERD (gastroesophageal reflux disease): Status: Inactive Category: Medical Code(s): K21.9 - Gastro-esophageal reflux disease without esophagitis (8) Tobacco dependence syndrome: Problem Comment: Patient strongly encouraged to quit tobacco, however patient has adamantly refused to quit smoking. Status: Acute Category: Medical Code(s): F17.200 - Nicotine dependence, unspecified, uncomplicated (9) HLD (hyperlipidemia): Status: Acute Qualifiers: Hyperlipidemia type: mixed hyperlipidemia Qualified Code(s): E78.2 - Mixed hyperlipidemia Category: Medical Code(s): E78.5 - Hyperlipidemia, unspecified (10) HTN (hypertension): Problem Comment: I do question the compliance of this patient with his medications. He is on a very complicated medical regimen when I look at his blood pressures over the past year or 2 his pressures have gone up here at the clinic. He is not checking his blood pressures at home. Will continue with current medications however we will discuss with Nany here at the clinic options for this ramakrishna. Status: Acute Qualifiers: Hypertension type: essential hypertension Qualified Code(s): I10 - Essential (primary) hypertension Category: Medical Code(s): I10 - Essential (primary) hypertension (11) Diabetes: Status: Inactive Qualifiers: Diabetes mellitus complication status: with other specified complication Diabetes mellitus exterminator helper termite insulin use: without exterminator helper termite use Diabetes mellitus type: type 2 Qualified Code(s): E11.69 - Type 2 diabetes mellitus with other specified complication Category: Medical Code(s): E11.9 - Type 2 diabetes mellitus without complications Plan Acute on chronic HFrEF -Known EF 20% status post [facility] BiV ICD -Interrogation here shows no events -Patient presented with worsening dyspnea on exertion anasarca, proBNP 12,000, chest x-ray clear -Continue Bumex drip -Patient BP typically 140s, he has high salt and sugar intake which is directly affecting both blood pressure and his edema. He has worsening renal function with creatinine up to 2.8 -Plan: Continue Bumex 0.5 mg/h, strict I/O, resume amiodarone bisoprolol Coumadin Plavix and statin. Change Entresto to Imdur/hydralazine, stop Aldactone, add Jardiance metolazone and Verquvo, Daily labs Acute on chronic renal failure -Baseline creatinine 2.2, he is 2.8 here-GFR 23 -Dose adjust medications, DC Entresto and Aldactone, changed to hydralazine Imdur -Slow diuresis, daily labs Severe anasarca -Severe pitting edema from feet to flanks -Secondary to heart failure and renal failure as outlined above Numerous old and new ulcerations noted to bilateral lower extremities with soiled skin and severe onychomycosis -Recommend wound care here -Recommend outpatient podiatry referral Questionable LV thrombus -Noted on recent imaging -Patient currently on Coumadin for this but he needs upper endoscopy next week for dysphagia and they are requesting to hold -Will repeat limited echo here, if no LV thrombus noted likely okay to hold Coumadin and bridge with Lovenox as needed for endoscopy Multivessel CAD status post CABG 2022 -CCS = 0, EKG sinus rhythm without acute ischemic changes, normal troponin -Continue Plavix and Coumadin as tolerated -Resume beta-yadi and statin Paroxysmal atrial fibrillation -Sinus rhythm here, continue amiodarone and bisoprolol -He is status post left atrial appendage closure but currently on Coumadin due to LV thrombus Hypertension -Stable here -Med changes as noted above Muscle Cramping due to Diuresis - add IV Mg History of noncompliance -Discussed with patient and his family who are at bedside in detail. He needs daily compliance with his medications and close monitoring of his weight and fluid status. Furthermore he needs to significantly reduce salt and sugar in his daily intake and needs to bathe daily and keep his lower extremities clean and covered. His recurrent severe anasarca with weeping edema and open ulcerations combined with poor hygiene place him at very high risk of skin infection which could lead to sepsis and potentially given his severe comorbidities
--- NOTE | 2023-04-14 11:38 | CA_ITS ---
APPROVED REPORT EXAM: Limited 2D, Doppler, and color-flow Echocardiogram Advanced Clinical Specialist: JASON Maier, RVS Ht: 5 ft 9 in Wt: 240lbs BSA: 2.23 BP: 142/66 mmHg Indications: CHF, RF, Anemia Hgb 10.8L, CAD S?p CABG, MV Ring w/ LA clip, Smoker, DM, HLD, HTN, PAF, Hx-stroke, Chronic Lymph & pedal edema 2D Dimensions Left Atrium 5.41 cm M: 3.0 - 4.0 M-Mode Dimensions RVDd 3.23 cm (0.9-2.6) LVDd 6.32 cm (3.5-5.7) LVDs 4.74 cm (3.5-5.7) IVSd 1.30 cm (0.6-1.1) PWd 1.12 cm (0.6-1.1) EF (Teich) 45.60% EPSs 1.70 cm FS 23.20% EDV (Teich) 191.90 mL ESV (Teich) 104.40 mL Other Information Study Quality: Technically Difficult Conclusion This is a limited TTE to evaluate for LVEF. Limited windows are obtained. Technically difficult study due to poor accoustic windows and difficulty visualizing endocardial borders. The left ventricle is mildly dilated (LVEDVi 77 ml/m2). There is normal LV wall thickness. There is mild to moderate global hypokinesis present. There is severe hypokinesis of the inferior, inferoseptal, and inferolateral LV escobar. LVEF is 40%. Compared to prior study from 01/2023, the LVEF is now improved. Electronically signed by : Cherelle Tarango MD 04/15/2023 16:39:32
[2023-04-14 12:00] VITALS: BP 145/79; PULSE 64; RESP 18; TEMP 36.6; O2SAT 100
[2023-04-14 12:17] LABS: POC Glucose,Bedside 187 (70-110)
[2023-04-14 14:16] LABS: Troponin I < 0.01 ng/ml (0.00-0.034)
--- NOTE | 2023-04-14 15:37 | PC.NURSE ---
Pt in bed. Has c/o of discomfort to BLE this shift. Pt has 3+ edema, erythema with weeping noted to BLE. He has 2+ edema to (L) hand, penis and scrotum. 1+ edema to LUE and RUE. F/ C placed. Pt has diuresed well. 2100 ml output. Wound care was consulted for BLE. Bumex gtt infusing @ 5 ml/hr. Awaiting report for echo. Coumadin and plavix temporarily on hold while awaiting results.
[2023-04-14 16:00] VITALS: BP 140/71; PULSE 65; RESP 20; TEMP 36.6; O2SAT 98
[2023-04-14] MEDS: MORPHINE 4MG/ML SYRINGE 4 MG IV (16:42)
[2023-04-14] MEDS: ENOXAPARIN 100MG/ML SYRINGE 110 MG SQ (17:32)
[2023-04-14 17:45] LABS: POC Glucose,Bedside 173 (70-110)
[2023-04-14 19:01] LABS: Anion Gap 10.7 mEq/L (5-15); Blood Urea Nitrogen 46 mg/dl (9-20); Calcium 8.9 mg/dl (8.4-10.2); Carbon Dioxide 30 mmol/L (22.0-30.0); Chloride 100 mmol/L (98-107); Creatinine Clearance Estimated 44 mL/min (50-200); Estimated Glomerular Filt Rate 23 ml/min (>60); GFR (African American) 28 ML/MIN (>60); Glucose 215 mg/dl (74-100); Potassium 4.7 mmoL/L (3.5-5.1); Sodium 136 mmol/L (136-145)
[2023-04-14 20:00] VITALS: BP 118/67; PULSE 63; RESP 18; TEMP 37.2; O2SAT 96
[2023-04-14 20:12] LABS: POC Glucose,Bedside 243 (70-110)
[2023-04-14] MEDS: INSULIN GLARGINE 100 UNITS/ML 3ML FLEXPEN 25 UNIT SQ (20:15)
[2023-04-14] MEDS: humaLOG 100 UNITS/ML 3ML VIAL (SSI) SQ (20:15)
[2023-04-14] MEDS: PANTOPRAZOLE 40MG TABLET 40 MG PO (20:16)
--- NOTE | 2023-04-15 03:28 | PC.NURSE ---
BUMEX INFUSION ONGOING WITH EXCELLENT RESULTS. HAS HAD 4000 UOP THUS FAR ON THIS SHIFT. NO C/O SOA OR PAIN. BILAT NGUYEN AREAS WARM AND RED. EDEMA IMPROVING.
[2023-04-15 04:00] VITALS: BP 120/64; PULSE 64; RESP 20; TEMP 36.8; O2SAT 97
[2023-04-15 05:17] LABS: POC Glucose,Bedside 146 (70-110)
[2023-04-15] MEDS: TRAMADOL 50MG TABLET 50 MG PO ×2 (05:26→16:29)
--- NOTE | 2023-04-15 07:56 | P.PN_ITS ---
Subjective *Date: 04/15/23 *Time: 11:31 Interval history: Patient feeling somewhat better morning. Breathing better. Legs not hurting as much. Has had impressive response to Bumex drip. Over 8 L of urine output, - 5.8 L of volume status since yesterday. On room air. No nausea or vomiting, no chest pain. Reports legs less swollen today. Getting in bedside chair on exam. Medical Exam Vital signs and Labs for Last 24 Hours: Vital Signs Temp Pulse Resp BP Pulse Ox O2 Del Method 04/15/23 06:26 Room Air 04/15/23 04:00 98.2 F 64 20 120/64 97 Room Air 04/15/23 04:51 Room Air 04/15/23 02:50 Room Air 04/15/23 01:00 Room Air 04/14/23 23:00 Room Air 04/14/23 20:00 99.0 F 63 18 118/67 96 04/14/23 21:00 Room Air 04/14/23 20:00 96 Room Air 04/14/23 18:33 Room Air 04/14/23 17:00 Room Air 04/14/23 16:00 98 F 65 20 140/71 98 Room Air 04/14/23 14:52 Room Air 04/14/23 13:00 Room Air 04/14/23 12:00 97.8 F 64 18 145/79 H 100 Room Air 04/14/23 11:00 Room Air 04/14/23 09:00 Room Air 04/14/23 08:26 97.9 F 61 20 142/66 H 100 Room Air 04/14/23 08:00 Room Air Intake and Output 04/14/23 04/14/23 04/15/23 15:59 23:59 07:59 Intake Total 2057 / 2727.583 527.583 / 2727.583 164 / 164 Output Total 2100 / 4800 2700 / 4800 3800 / 3800 Balance -42 / -2072.417 -2172.417 / -2072.417 -3636 / -3636 Intake: Intake, Oral Amount 1480 / 1840 360 / 1840 Intake, Total IV Amount 578 / 887.583 167.583 / 887.583 164 / 164 Bumetanide 10 mg In 0.9 % 28 / 70 64 / 64 Sodium Chloride 60 ml @ 5 mls/ hr IV .Q20H [facility] Rx#:[id number] Cefepime HCl 2 gm In 0.9 % 100 / 300 100 / 300 100 / 100 Sodium Chloride 100 ml @ 200 mls/hr IV Q12H [facility] Rx#:[id number] Magnesium Sulfate in Water 2 gm 50 / 50 In 50 ml @ 50 mls/hr IV ONCE ONE Rx#:[id number] Piperacillin/Tazo 4.5 gm In 0.9 100 / 100 % Sodium Chloride 100 ml @ 200 mls/hr IV Q6H [facility] Rx#:[id number] Vancomycin/Water For Inj (Peg) 300 / 300 1.5 gm In 300 ml @ 150 mls/hr IV Q24H [facility] Rx#:[id number] Output: Output, Urine Amount 1800 / 1800 3800 / 3800 Output, Urine Amount (Catheter) 2100 / 3000 900 / 3000 Bingham 2100 / 3000 900 / 3000 Other: Number of Unmeasured Voids 0 0 0 Weight 108.522 kg Laboratory Results - last 24 hr 04/14/23 05:55: PT 22.7 H, INR 2.21 H, Hemoglobin A1c 7.6 H 04/14/23 09:18: Troponin I 0.02 04/14/23 12:05: POC Glucose 187 H 04/14/23 13:31: Troponin I < 0.01 04/14/23 17:38: POC Glucose 173 H 04/14/23 18:29: Sodium 136, Potassium 4.7, Chloride 100, Carbon Dioxide 30, Anion Gap 10.7, BUN 46 H, Creatinine 2.80 H, Estimated Creat Clear 44, Estimated GFR 23 L, Est GFR ( Amer) 28 L, Glucose 215 H D, Calcium 8.9 04/14/23 20:00: POC Glucose 243 H 04/15/23 05:03: POC Glucose 146 H I & O for Labs for Last 24 Hours: Intake & Output 04/12/23 04/13/23 04/14/23 04/15/23 23:59 23:59 23:59 23:59 Intake Total 2585.583 / 2727.583 164 / 164 Output Total 4800 / 4800 3800 / 3800 Balance -2214.417 / -2072.417 -3636 / -3636 Weight 108.522 kg Constitutional: Present no acute distress and chronically ill appearing Head: Present atraumatic and normocephalic ENT: Present normal exam Neck: Present normal inspection Respiratory: Present crackles (minor in bases) and normal respiratory effort; Absent rhonchi or wheezes Cardiac: Present Reg Rate and Rhythm GI: Present soft and normal bowel sounds; Absent distention or tenderness Extremities: Present normal inspection, full ROM and edema (2+ to thighs, improved in abdomen) Skin: Present erythema; Absent intact Comment:: Wounds present on legs, decreased weeping. Improving erythema. Neuro: Present Grossly Intact, alert, awake, oriented x 3 and moves all extremities Assessment and Plan *Assessment and plan (1) Acute exacerbation of CHF (congestive heart failure): Status: Acute Category: Medical Code(s): I50.9 - Heart failure, unspecified (2) NYHA class 3 heart failure with reduced ejection fraction: Problem Comment: Patient is following with cardiology. Status: Acute Category: Medical Code(s): I50.20 - Unspecified systolic (congestive) heart failure (3) Chronic kidney disease, stage 3a: Status: Acute Category: Medical Code(s): N18.31 - Chronic kidney disease, stage 3a (4) S/P CABG (coronary artery bypass graft): Status: Chronic Category: Surgical Code(s): Z95.1 - Presence of aortocoronary bypass graft (5) PAF (paroxysmal atrial fibrillation): Status: Acute Category: Medical Code(s): I48.0 - Paroxysmal atrial fibrillation (6) CAD (coronary artery disease): Status: Acute Qualifiers: Associated angina: without angina Coronary Disease-Associated Artery/Lesion type: [place] artery [place] vs. transplanted heart: [place] heart Qualified Code(s): I25.10 - Atherosclerotic heart disease of [place] coronary artery without angina pectoris Category: Medical Code(s): I25.10 - Atherosclerotic heart disease of [place] coronary artery without angina pectoris (7) GERD (gastroesophageal reflux disease): Status: Inactive Category: Medical Code(s): K21.9 - Gastro-esophageal reflux disease without esophagitis (8) Tobacco dependence syndrome: Problem Comment: Patient strongly encouraged to quit tobacco, however patient has adamantly refused to quit smoking. Status: Acute Category: Medical Code(s): F17.200 - Nicotine dependence, unspecified, uncomplicated (9) HLD (hyperlipidemia): Status: Acute Qualifiers: Hyperlipidemia type: mixed hyperlipidemia Qualified Code(s): E78.2 - Mixed hyperlipidemia Category: Medical Code(s): E78.5 - Hyperlipidemia, unspecified (10) HTN (hypertension): Problem Comment: I do question the compliance of this patient with his medications. He is on a very complicated medical regimen when I look at his blood pressures over the past year or 2 his pressures have gone up here at the clinic. He is not checking his blood pressures at home. Will continue with current medications however we will discuss with Nany here at the clinic options for this ramakrishna. Status: Acute Qualifiers: Hypertension type: essential hypertension Qualified Code(s): I10 - Essential (primary) hypertension Category: Medical Code(s): I10 - Essential (primary) hypertension (11) Diabetes: Status: Inactive Qualifiers: Diabetes mellitus complication status: with other specified complication Diabetes mellitus shelter insulin use: without shelter use Diabetes mellitus type: type 2 Qualified Code(s): E11.69 - Type 2 diabetes mellitus with other specified complication Category: Medical Code(s): E11.9 - Type 2 diabetes mellitus without complications (12) Cellulitis: Status: Acute Qualifiers: Laterality: unspecified laterality Site of cellulitis: extremity Site of cellulitis of extremity: lower extremity Qualified Code(s): L03.119 - Cellulitis of unspecified part of limb Category: Medical Code(s): L03.90 - Cellulitis, unspecified Plan 57-year-old status post CABG x4 10 months ago who presented to the ER because of worsening shortness of breath. Found to have acute exacerbation of his chronic CHF. Discussed case with ER, request admission for diuresis, antibiotics for possible cellulitis of his legs, and cardiology eval. Medicine agreed to admit. Initiated on diuretics with Bumex drip, Bingham placed for strict output. Already having significant response in starting medications. Tolerating diuresis. Will continue today. Continues to require inpatient management. Problems addressed as follows: Acute on chronic CHF NYHA class III heart failure History of CABG x 4 Paroxysmal A-fib Hyperlipidemia -Cardiology consulted, appreciate their recommendations.? Concern for compliance with diuretics at home. Given brisk response to Bumex drip with over 8 L of urine output in 24 hours and negative almost 6 L volume status, will transition to Bumex 2 mg IV twice daily. Appears to be sensitive and responsive to loop diuretics. - continue bisoprolol 5 mg daily, Jardiance 10 mg daily, Entresto 24/26 mg twice daily, amiodarone 40 mg twice daily, Lipitor 80 mg nightly, isosorbide 60 mg daily - Holding Plavix and warfarin in the setting of planned scope next week. Treat with Lovenox 1 mg/kg twice daily pending echo results -Continue home spironolactone 50 mg daily. Initiate metolazone 5 mg daily -AICD in place, monitor on continuous telemetry. -Potassium 5.2 this morning, repeat BMP for the morning. -Repeat CBC, CMP, magnesium ordered for the morning. -Supplemental oxygen as needed, goal sats greater 90%. currently on RA EMMA on CKD -BUN 51, creatinine 2.8. Stable since admission. Continue to monitor with diuresis. BMP this afternoon Cellulitis: Concern for cellulitis in his legs with weeping wounds. Dressings on lesions, intolerant due to boots due to pain. Continue cefepime 2 g every 12 hours IV. Wound consult placed for Unna boots and treatment of open wounds. Continue antibiotics with cefepime 2 g twice daily. White cell count remains normal at 5.7. Hemoglobin 13.9. Type 2 diabetes -Insulin-dependent. A1c controlled at 6.6 on previous visit. Continued home glargine and sliding scale insulin - FSGS ACHS. Continued home Wellbutrin for mood Holding warfarin Full code Cardiac diet Continue warfarin, INR 2.2, therapeutic TLOV
[2023-04-15 08:00] VITALS: BP 106/64; PULSE 65; RESP 18; TEMP 36.6; O2SAT 97
[2023-04-15 08:02] LABS: Chloride 100 mmol/L (98-107); Sodium 135 mmol/L (136-145)
[2023-04-15 08:03] LABS: Potassium 5.2 mmoL/L (3.5-5.1)
[2023-04-15 08:05] LABS: Alanine Aminotransferase 39 U/L (12-78); Alkaline Phosphatase 223 U/L (38-126); Anion Gap 11.2 mEq/L (5-15); Aspartate Amino Transferase 77 U/L (17-59); Bilirubin,Total 1.2 mg/dl (0.2-1.3); Blood Urea Nitrogen 51 mg/dl (9-20); Carbon Dioxide 29 mmol/L (22.0-30.0); Creatinine Clearance Estimated 44 mL/min (50-200); Estimated Glomerular Filt Rate 23 ml/min (>60); GFR (African American) 28 ML/MIN (>60)
[2023-04-15 08:06] LABS: Albumin Level 3.9 g/dl (3.5-5.0); Albumin/Globulin Ratio 1.1 (1.1-1.8); Calcium 9.4 mg/dl (8.4-10.2); Globulin 3.4 g/dL (1.3-3.2); Glucose 93 mg/dl (74-100); Magnesium 2.4 mg/dl (1.6-2.3); Total Protein,Serum 7.3 g/dl (6.3-8.2)
[2023-04-15] MEDS: AMIODARONE 200MG TABLET 200 MG PO ×2 (08:33→20:21)
[2023-04-15] MEDS: ATORVASTATIN 40MG TABLET 40 MG PO (08:34)
[2023-04-15] MEDS: BUMETANIDE 1MG/4ML VIAL 2 MG IV ×2 (08:34→16:20)
[2023-04-15] MEDS: BISOPROLOL 5MG TABLET 5 MG PO (08:34)
[2023-04-15] MEDS: EMPAGLIFLOZIN 10MG TABLET 10 MG PO (08:35)
[2023-04-15] MEDS: HYDRALAZINE HCL 25MG TABLET 25 MG PO ×3 (08:36→20:20)
[2023-04-15] MEDS: metOLazone 2.5MG TABLET 5 MG PO (08:36)
[2023-04-15] MEDS: SPIRONOLACTONE 25MG TABLET 50 MG PO (08:36)
[2023-04-15] MEDS: CEFEPIME HCL 2 GM in 0.9 % SODIUM CHLORIDE 100 ML IV ×2 (08:36→20:50)
[2023-04-15] MEDS: ISOSORBIDE MONO 60MG TAB.ER.24H 60 MG PO (08:36)
[2023-04-15 08:43] LABS: Basophils % 0.4 % (0.1-2.0); Eosinophils # 0.1 K/mm3 (0.0-0.4); Eosinophils % 2.4 % (0.1-12.0); Hematocrit 45.9 % (42.0-52.0); Hemoglobin 13.9 g/dL (14.1-18.0); Lymphocytes # 0.9 K/mm3 (0.7-4.5); Lymphocytes % 15.2 % (10-50); Mean Corpuscular HGB Conc 30.3 g/dL (31.8-35.4); Mean Corpuscular Hemoglobin 28.1 pg (27.0-31.2); Mean Corpuscular Volume 92.5 fl (80-94); Mean Platelet Volume 7.8 fl (7.4-10.4); Monocytes # 0.4 K/mm3 (0.1-1.0); Monocytes % 7.1 % (1.7-9.3); Neutrophils # 4.2 K/mm3 (1.8-7.8); Platelet Count 187 K/mm3 (142-424); Red Blood Count 4.96 M/mm3 (4.60-6.20); Red Cell Distribution Width 18.6 % (11.5-17.5); White Blood Count 5.7 K/mm3 (4.8-10.8)
[2023-04-15] MEDS: VANCOMYCIN/WATER FOR INJ (PEG) 1.5 GM/300 ML PIGGYBACK IV (10:05)
[2023-04-15] MEDS: VERICIGUAT 2.5 MG PO (10:05)
[2023-04-15] MEDS: humaLOG 100 UNITS/ML 3ML VIAL (SSI) SQ ×3 (11:09→20:16)
[2023-04-15] MEDS: ENOXAPARIN 120MG/0.8ML SYRINGE 110 MG SQ ×2 (11:09→21:00)
[2023-04-15] MEDS: buPROPion HCl SR 150MG TAB 150 MG PO ×2 (11:10→20:20)
[2023-04-15 11:34] LABS: POC Glucose,Bedside 165 (70-110)
--- NOTE | 2023-04-15 11:40 | PC.WOUNDNOTE ---
area to Coccyx and bottom
[2023-04-15 16:00] VITALS: BP 121/64; PULSE 61; RESP 20; TEMP 36.4; O2SAT 100
[2023-04-15 16:33] LABS: POC Glucose,Bedside 233 (70-110)
--- NOTE | 2023-04-15 18:16 | PC.NURSE ---
Pt has been up to the chair this shift. Tolerated well. Pt is diuresing well. Edema to BLE, (L) hand and shayne area has improved. F/C draining to bedside with clear, yellow urine with 1800 ml total output. He is currently in bed. Has c/o discomfort to his BLE and back. DSGs to BLE placed this afternoon. DSG also placed to coccyx area. Call light within reach.
[2023-04-15 18:38] LABS: Chloride 94 mmol/L (98-107); Potassium 4.2 mmoL/L (3.5-5.1); Sodium 135 mmol/L (136-145)
[2023-04-15 18:41] LABS: Anion Gap 11.2 mEq/L (5-15); Blood Urea Nitrogen 53 mg/dl (9-20); Carbon Dioxide 34 mmol/L (22.0-30.0); Creatinine Clearance Estimated 41 mL/min (50-200); Estimated Glomerular Filt Rate 22 ml/min (>60); GFR (African American) 26 ML/MIN (>60)
[2023-04-15 18:42] LABS: Calcium 9.5 mg/dl (8.4-10.2); Glucose 182 mg/dl (74-100)
[2023-04-15 20:00] VITALS: BP 119/63; PULSE 62; RESP 20; TEMP 36.7; O2SAT 95
[2023-04-15 20:01] LABS: POC Glucose,Bedside 198 (70-110)
[2023-04-15] MEDS: INSULIN GLARGINE 100 UNITS/ML 3ML FLEXPEN 25 UNIT SQ (20:18)
[2023-04-15] MEDS: PANTOPRAZOLE 40MG TABLET 40 MG PO (20:20)
[2023-04-16 04:00] VITALS: BP 109/59; PULSE 60; RESP 18; TEMP 36.7; O2SAT 97
[2023-04-16 06:47] LABS: POC Glucose,Bedside 102 (70-110)
[2023-04-16 07:47] LABS: Basophils % 0.3 % (0.1-2.0); Eosinophils # 0.1 K/mm3 (0.0-0.4); Eosinophils % 1.5 % (0.1-12.0); Hematocrit 34.6 % (42.0-52.0); Hemoglobin 10.8 g/dL (14.1-18.0); Lymphocytes # 1.1 K/mm3 (0.7-4.5); Lymphocytes % 13.1 % (10-50); Mean Corpuscular HGB Conc 31.2 g/dL (31.8-35.4); Mean Corpuscular Hemoglobin 28.5 pg (27.0-31.2); Mean Corpuscular Volume 91.2 fl (80-94); Monocytes # 0.6 K/mm3 (0.1-1.0); Monocytes % 7.1 % (1.7-9.3); Neutrophils # 6.3 K/mm3 (1.8-7.8); Neutrophils % 78.1 % (37.0-80.0); Platelet Count 262 K/mm3 (142-424); Red Blood Count 3.79 M/mm3 (4.60-6.20); Red Cell Distribution Width 18.7 % (11.5-17.5); White Blood Count 8.1 K/mm3 (4.8-10.8)
[2023-04-16 07:48] LABS: Chloride 99 mmol/L (98-107); Potassium 4.6 mmoL/L (3.5-5.1); Sodium 133 mmol/L (136-145)
[2023-04-16 07:51] LABS: Alanine Aminotransferase 41 U/L (12-78); Albumin Level 3.5 g/dl (3.5-5.0); Alkaline Phosphatase 227 U/L (38-126); Anion Gap 8.6 mEq/L (5-15); Aspartate Amino Transferase 88 U/L (17-59); Bilirubin,Total 0.9 mg/dl (0.2-1.3); Blood Urea Nitrogen 60 mg/dl (9-20); Calcium 9.5 mg/dl (8.4-10.2); Carbon Dioxide 30 mmol/L (22.0-30.0); Creatinine Clearance Estimated 39 mL/min (50-200); Estimated Glomerular Filt Rate 21 ml/min (>60); GFR (African American) 25 ML/MIN (>60); Globulin 3.4 g/dL (1.3-3.2); Glucose 104 mg/dl (74-100); Total Protein,Serum 6.9 g/dl (6.3-8.2)
[2023-04-16 07:52] LABS: Magnesium 2.3 mg/dl (1.6-2.3)
[2023-04-16 08:00] VITALS: BP 116/68; PULSE 60; TEMP 36.9; O2SAT 97
[2023-04-16] MEDS: BISOPROLOL 5MG TABLET 5 MG PO (08:27)
[2023-04-16] MEDS: ATORVASTATIN 40MG TABLET 40 MG PO (08:27)
[2023-04-16] MEDS: AMIODARONE 200MG TABLET 200 MG PO ×2 (08:27→21:04)
[2023-04-16] MEDS: buPROPion HCl SR 150MG TAB 150 MG PO ×2 (08:28→20:53)
[2023-04-16] MEDS: CLOPIDOGREL 75MG TAB 75 MG PO (08:28)
[2023-04-16] MEDS: BUMETANIDE 1MG/4ML VIAL 2 MG IV (08:28)
[2023-04-16] MEDS: CEFEPIME HCL 2 GM in 0.9 % SODIUM CHLORIDE 100 ML IV ×2 (08:29→20:56)
[2023-04-16] MEDS: ISOSORBIDE MONO 60MG TAB.ER.24H 60 MG PO (08:29)
[2023-04-16] MEDS: metOLazone 2.5MG TABLET 5 MG PO (08:29)
[2023-04-16] MEDS: SPIRONOLACTONE 25MG TABLET 50 MG PO (08:29)
[2023-04-16] MEDS: HYDRALAZINE HCL 25MG TABLET 25 MG PO ×2 (08:29→13:43)
[2023-04-16] MEDS: VERICIGUAT 2.5 MG PO (08:29)
[2023-04-16] MEDS: EMPAGLIFLOZIN 10MG TABLET 10 MG PO (08:29)
[2023-04-16] MEDS: VANCOMYCIN/WATER FOR INJ (PEG) 1.5 GM/300 ML PIGGYBACK IV (09:52)
[2023-04-16] MEDS: ENOXAPARIN 120MG/0.8ML SYRINGE 110 MG SQ (09:52)
[2023-04-16] MEDS: humaLOG 100 UNITS/ML 3ML VIAL (SSI) SQ ×3 (10:16→20:54)
--- NOTE | 2023-04-16 10:18 | P.PN_ITS ---
Subjective *Date: 04/16/23 *Time: 10:18 Interval history: Patient feeling better, denies any shortness of breath. Only complaint is pain in his bottom from the uncomfortable hospital bed. Is -10.5 L since admission. Diuresing well with transition to twice daily Bumex yesterday. Discontinue Bingham today. Continue Bumex, metolazone, spironolactone. Decrease to once daily. Goal -1 to 2 L. Still has edema up to thighs. No nausea or vomiting. No chest pain. Afebrile. Medical Exam Vital signs and Labs for Last 24 Hours: Vital Signs Temp Pulse Resp BP Pulse Ox O2 Del Method 04/16/23 08:00 98.5 F 60 116/68 97 Room Air 04/16/23 08:00 Room Air 04/16/23 07:00 Room Air 04/16/23 05:00 Room Air 04/16/23 04:00 98.1 F 60 18 109/59 L 97 Room Air 04/16/23 03:00 Room Air 04/16/23 01:00 Room Air 04/15/23 23:00 Room Air 04/15/23 21:00 Room Air 04/15/23 20:00 98.1 F 62 20 119/63 95 Room Air 04/15/23 20:00 Room Air 04/15/23 18:44 Room Air 04/15/23 17:00 Room Air 04/15/23 16:00 97.6 F 61 20 121/64 100 Room Air 04/15/23 14:49 Room Air 04/15/23 13:00 Room Air 04/15/23 10:52 Room Air Intake and Output 04/15/23 04/16/23 04/16/23 23:59 07:59 15:59 Intake Total 370 / 1933 0 / 0 Output Total 1900 / 9200 1100 / 1700 600 / 1700 Balance -1530 / -7267 -1100 / -1700 -600 / -1700 Intake: Intake, Oral Amount 370 / 1430 0 / 0 Output: Output, Urine Amount 800 / 6300 1100 / 1700 600 / 1700 Output, Urine Amount (Catheter) 1100 / 2900 Bingham 1100 / 2900 Other: Number of Unmeasured Voids 0 0 0 Laboratory Results - last 24 hr 04/15/23 10:51: POC Glucose 165 H 04/15/23 16:21: POC Glucose 233 H 04/15/23 17:55: Sodium 135 L, Potassium 4.2, Chloride 94 L, Carbon Dioxide 34 H, Anion Gap 11.2, BUN 53 H, Creatinine 3.00 H, Estimated Creat Clear 41, Estimated GFR 22 L, Est GFR ( Amer) 26 L, Glucose 182 H D, Calcium 9.5 04/15/23 19:51: POC Glucose 198 H 04/16/23 06:15: POC Glucose 102 04/16/23 06:59: WBC 8.1 D, RBC 3.79 L, Hgb 10.8 L, Hct 34.6 L, MCV 91.2, MCH 28.5, MCHC 31.2 L, RDW 18.7 H, Plt Count 262 D, MPV 8.0, Neut % (Auto) 78.1, Lymph % (Auto) 13.1, [place] % (Auto) 7.1, Eos % (Auto) 1.5, Baso % (Auto) 0.3, Neut # (Auto) 6.3, Lymph # (Auto) 1.1, [place] # (Auto) 0.6, Eos # (Auto) 0.1, Baso # (Auto) 0.0, Sodium 133 L, Potassium 4.6, Chloride 99, Carbon Dioxide 30, Anion Gap 8.6, BUN 60 H, Creatinine 3.10 H, Estimated Creat Clear 39, Estimated GFR 21 L, Est GFR ( Amer) 25 L, Glucose 104 H D, Calcium 9.5, Magnesium 2.3, Total Bilirubin 0.9, AST 88 H, ALT 41, Alkaline Phosphatase 227 H, Total Protein 6.9, Albumin 3.5 D, Globulin 3.4 H, Albumin/Globulin Ratio 1.0 L I & O for Labs for Last 24 Hours: Intake & Output 04/13/23 04/14/23 04/15/23 04/16/23 23:59 23:59 23:59 23:59 Intake Total 2585.583 / 2727.583 1932 / 1932 0 / 0 Output Total 4800 / 4800 9200 / 9200 1700 / 1700 Balance -2214.417 / -2072.417 -7267 / -7267 -1700 / -1700 Weight 108.522 kg Microbiology Reports for the Last 24 Hours: Microbiology 04/14/23 06:35 Blood Blood Culture - Preliminary Constitutional: Present no acute distress and chronically ill appearing Head: Present atraumatic and normocephalic ENT: Present normal exam Neck: Present normal inspection Respiratory: Present crackles (minor in bases) and normal respiratory effort; Absent rhonchi or wheezes Cardiac: Present Reg Rate and Rhythm GI: Present soft and normal bowel sounds; Absent distention or tenderness Extremities: Present normal inspection, full ROM and edema (3+ to thighs) Skin: Present erythema; Absent intact Comment:: Wounds present on legs, decreased weeping. Improving erythema. Neuro: Present Grossly Intact, alert, awake, oriented x 3 and moves all extremities Assessment and Plan *Assessment and plan (1) Acute exacerbation of CHF (congestive heart failure): Status: Acute Category: Medical Code(s): I50.9 - Heart failure, unspecified (2) NYHA class 3 heart failure with reduced ejection fraction: Problem Comment: Patient is following with cardiology. Status: Acute Category: Medical Code(s): I50.20 - Unspecified systolic (congestive) heart failure (3) Chronic kidney disease, stage 3a: Status: Acute Category: Medical Code(s): N18.31 - Chronic kidney disease, stage 3a (4) S/P CABG (coronary artery bypass graft): Status: Chronic Category: Surgical Code(s): Z95.1 - Presence of aortocoronary bypass graft (5) PAF (paroxysmal atrial fibrillation): Status: Acute Category: Medical Code(s): I48.0 - Paroxysmal atrial fibrillation (6) CAD (coronary artery disease): Status: Acute Qualifiers: Coronary Disease-Associated Artery/Lesion type: [place] artery [place] vs. transplanted heart: [place] heart Associated angina: without angina Qualified Code(s): I25.10 - Atherosclerotic heart disease of [place] coronary artery without angina pectoris Category: Medical Code(s): I25.10 - Atherosclerotic heart disease of [place] coronary artery without angina pectoris (7) GERD (gastroesophageal reflux disease): Status: Inactive Category: Medical Code(s): K21.9 - Gastro-esophageal reflux disease without esophagitis (8) Tobacco dependence syndrome: Problem Comment: Patient strongly encouraged to quit tobacco, however patient has adamantly refused to quit smoking. Status: Acute Category: Medical Code(s): F17.200 - Nicotine dependence, unspecified, uncomplicated (9) HLD (hyperlipidemia): Status: Acute Qualifiers: Hyperlipidemia type: mixed hyperlipidemia Qualified Code(s): E78.2 - Mixed hyperlipidemia Category: Medical Code(s): E78.5 - Hyperlipidemia, unspecified (10) HTN (hypertension): Problem Comment: I do question the compliance of this patient with his medications. He is on a very complicated medical regimen when I look at his blood pressures over the past year or 2 his pressures have gone up here at the clinic. He is not checking his blood pressures at home. Will continue with current medications however we will discuss with Nany here at the clinic options for this ramakrishna. 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: without [place] machine operator helper use Diabetes mellitus complication status: with other specified complication Qualified Code(s): E11.69 - Type 2 diabetes mellitus with other specified complication Category: Medical Code(s): E11.9 - Type 2 diabetes mellitus without complications (12) Cellulitis: Status: Acute Qualifiers: Laterality: unspecified laterality Site of cellulitis: extremity Site of cellulitis of extremity: lower extremity Qualified Code(s): L03.119 - Cellulitis of unspecified part of limb Category: Medical Code(s): L03.90 - Cellulitis, unspecified Plan 57-year-old status post CABG x4 10 months ago who presented to the ER because of worsening shortness of breath. Found to have acute exacerbation of his chronic CHF. Discussed case with ER, request admission for diuresis, antibiotics for possible cellulitis of his legs, and cardiology eval. Medicine agreed to admit. Discontinued Bumex drip yesterday transition to twice daily IV. Tolerating well with continued significant diuresis. Decrease diuretics again today and discontinue Bingham catheter. Tolerating well. Continues to require inpatient management. Cardiology to evaluate patient again tomorrow. Problems addressed as follows: Acute on chronic CHF NYHA class III heart failure History of CABG x 4 Paroxysmal A-fib Hyperlipidemia -Cardiology consulted, appreciate their recommendations.? Concern for compliance with diuretics at home. Patient -10.5 L since admission. Discontinue Bingham today. Continue Bumex 2 mg once daily with metolazone and spironolactone. -Continue to monitor electrolytes and kidney function closely for disturbances and need for replacement along with toxicity from diuretics. - continue bisoprolol 5 mg daily, Jardiance 10 mg daily, Entresto 24/26 mg twice daily, amiodarone 40 mg twice daily, Lipitor 80 mg nightly, isosorbide 60 mg d aily - Holding Plavix and warfarin in the setting of planned scope next week. Transition to prophylactic Lovenox. Echo with improved EF of 40%, no visualization of thrombus. -AICD in place, monitor on continuous telemetry. -Potassium 4.6, repeat BMP in the afternoon -Repeat CBC, CMP, magnesium ordered for the morning. -Supplemental oxygen as needed, goal sats greater 90%. currently on RA EMMA on CKD -BUN 60, creatinine 3.1. Continue to monitor with diuresis. Patient still significantly volume overloaded, acceptable bump in creatinine. Cellulitis: Concern for cellulitis in his legs with weeping wounds. Dressings on lesions, intolerant due to boots due to pain. Continue cefepime 2 g every 12 hours IV. Wound consult placed for Unna boots and treatment of open wounds. Continue antibiotics with cefepime 2 g twice daily. White cell count remains normal at 8.1, hemoglobin 10.4 Type 2 diabetes -Insulin-dependent. A1c controlled at 6.6 on previous visit. Continued home glargine and sliding scale insulin - FSGS ACHS. Continued home Wellbutrin for mood Full code Cardiac diet P DESIREE
[2023-04-16 10:25] LABS: POC Glucose,Bedside 195 (70-110)
[2023-04-16] MEDS: BUMETANIDE 1 MG TABLET PO (13:35)
[2023-04-16 15:50] VITALS: BP 114/62; PULSE 60; RESP 18; TEMP 36.4; O2SAT 97
[2023-04-16 16:40] LABS: POC Glucose,Bedside 184 (70-110)
[2023-04-16 18:41] LABS: Chloride 94 mmol/L (98-107); Potassium 4.4 mmoL/L (3.5-5.1); Sodium 133 mmol/L (136-145)
[2023-04-16 18:44] LABS: Anion Gap 11.4 mEq/L (5-15); Blood Urea Nitrogen 59 mg/dl (9-20); Calcium 9.8 mg/dl (8.4-10.2); Carbon Dioxide 32 mmol/L (22.0-30.0); Creatinine Clearance Estimated 38 mL/min (50-200); Estimated Glomerular Filt Rate 20 ml/min (>60); GFR (African American) 24 ML/MIN (>60); Glucose 178 mg/dl (74-100)
--- NOTE | 2023-04-16 19:28 | PC.NURSE ---
Pt has been up to chair most of shift. F/C DC. Pt has voided via urinal. Diuresing well. DSGs to BLE changed this afternoon due to weeping. Pt has had a good appetite. Has c/o some discomfort to his back. Call light within reach.
[2023-04-16 19:47] VITALS: BMI 35.4
[2023-04-16 20:00] VITALS: BP 106/55; PULSE 61; RESP 18; TEMP 36.8; O2SAT 98
[2023-04-16 20:21] VITALS: PULSE 60
[2023-04-16 20:24] LABS: POC Glucose,Bedside 246 (70-110)
--- NOTE | 2023-04-16 20:30 | PC.NURSE ---
patient was placed on telemetry monitoring at the beginning of my shift due to cardiac history and consult. Patient denies SOA or CP. EKG obtained due to concern of BBB - see report. patient has a defibrillator.
--- NOTE | 2023-04-16 20:30 | ECG_ITS ---
APPROVED REPORT Exam: Resting ECG HR:60 bpm ECG Measurements Heart Rate 60 AXES MD 290 P -66 QRSd 157 QRS -52 QT 487 T 110 QTc 487 Conclusion ELECTRONIC ATRIAL PACEMAKER LEFT AXIS DEVIATION [QRS AXIS < -30] INTRAVENTRICULAR CONDUCTION DELAY [130+ ms QRS DURATION] ABNORMAL ECG UNCONFIRMED REPORT Electronically signed by : Jarod Salter MD 04/17/2023 20:00:46
[2023-04-16] MEDS: PANTOPRAZOLE 40MG TABLET 40 MG PO (20:54)
[2023-04-16] MEDS: INSULIN GLARGINE 100 UNITS/ML 3ML FLEXPEN 25 UNIT SQ (20:55)
[2023-04-17] VITALS: BP 116/62; PULSE 60; PULSE 61; RESP 18; TEMP 37; O2SAT 96
[2023-04-17 04:00] VITALS: BP 116/56; PULSE 60; RESP 18; TEMP 36.6; O2SAT 98
--- NOTE | 2023-04-17 05:57 | PC.NURSE ---
AM FSBS 58 - gave OJ with sugar and PB w/ cracker - rechecked in 15 min w/ fsbs 99.
[2023-04-17 06:03] LABS: POC Glucose,Bedside 99 (70-110)
[2023-04-17 06:27] LABS: Basophils % 0.3 % (0.1-2.0); Eosinophils # 0.2 K/mm3 (0.0-0.4); Eosinophils % 2.2 % (0.1-12.0); Hematocrit 31.4 % (42.0-52.0); Lymphocytes # 1.6 K/mm3 (0.7-4.5); Lymphocytes % 19.9 % (10-50); Mean Corpuscular HGB Conc 31.8 g/dL (31.8-35.4); Mean Corpuscular Hemoglobin 29.3 pg (27.0-31.2); Mean Corpuscular Volume 91.9 fl (80-94); Mean Platelet Volume 8.3 fl (7.4-10.4); Monocytes # 0.7 K/mm3 (0.1-1.0); Monocytes % 8.7 % (1.7-9.3); Neutrophils # 5.6 K/mm3 (1.8-7.8); Neutrophils % 68.9 % (37.0-80.0); Platelet Count 279 K/mm3 (142-424); Red Blood Count 3.41 M/mm3 (4.60-6.20); Red Cell Distribution Width 18.8 % (11.5-17.5); White Blood Count 8.2 K/mm3 (4.8-10.8)
[2023-04-17 06:28] LABS: Chloride 96 mmol/L (98-107); Potassium 4.4 mmoL/L (3.5-5.1); Sodium 135 mmol/L (136-145)
[2023-04-17 06:30] LABS: Blood Urea Nitrogen 66 mg/dl (9-20); Creatinine Clearance Estimated 41 mL/min (50-200); Estimated Glomerular Filt Rate 22 ml/min (>60); GFR (African American) 26 ML/MIN (>60)
[2023-04-17 06:31] LABS: Alanine Aminotransferase 50 U/L (12-78); Albumin Level 3.6 g/dl (3.5-5.0); Alkaline Phosphatase 246 U/L (38-126); Anion Gap 9.4 mEq/L (5-15); Aspartate Amino Transferase 85 U/L (17-59); Calcium 9.6 mg/dl (8.4-10.2); Carbon Dioxide 34 mmol/L (22.0-30.0); Globulin 3.6 g/dL (1.3-3.2); Glucose 60 mg/dl (74-100); Total Protein,Serum 7.2 g/dl (6.3-8.2)
[2023-04-17 06:35] LABS: Magnesium 2.2 mg/dl (1.6-2.3)
[2023-04-17 07:47] VITALS: BP 116/57; PULSE 60; RESP 20; TEMP 36.4; O2SAT 98
[2023-04-17 08:00] VITALS: PULSE 60
[2023-04-17] MEDS: ATORVASTATIN 40MG TABLET 40 MG PO (08:00)
[2023-04-17] MEDS: VERICIGUAT 2.5 MG PO (08:00)
[2023-04-17] MEDS: CLOPIDOGREL 75MG TAB 75 MG PO (08:00)
[2023-04-17] MEDS: AMIODARONE 200MG TABLET 200 MG PO (08:00)
[2023-04-17] MEDS: EMPAGLIFLOZIN 10MG TABLET 10 MG PO (08:00)
[2023-04-17] MEDS: BISOPROLOL 5MG TABLET 5 MG PO (08:00)
[2023-04-17] MEDS: ISOSORBIDE MONO 60MG TAB.ER.24H 60 MG PO (08:00)
[2023-04-17] MEDS: HYDRALAZINE HCL 25MG TABLET 25 MG PO ×2 (08:00→13:27)
[2023-04-17] MEDS: ENOXAPARIN 40MG/0.4ML SYRINGE 40 MG SQ (08:01)
[2023-04-17] MEDS: metOLazone 2.5MG TABLET 5 MG PO (08:01)
[2023-04-17] MEDS: BUMETANIDE 1MG/4ML VIAL 2 MG IV (08:01)
[2023-04-17] MEDS: buPROPion HCl SR 150MG TAB 150 MG PO (08:01)
[2023-04-17] MEDS: SPIRONOLACTONE 25MG TABLET 50 MG PO (08:06)
--- NOTE | 2023-04-17 08:21 | P.PN_ITS ---
Subjective *Date: 04/17/23 *Time: 08:21 Medical Exam Vital signs and Labs for Last 24 Hours: Vital Signs Temp Pulse Pulse Resp BP Pulse Ox O2 Del Method 04/17/23 07:47 97.6 F 60 20 116/57 L 98 Room Air 04/17/23 06:06 Room Air 04/17/23 04:00 60 04/17/23 04:00 97.8 F 60 18 116/56 L 98 Room Air 04/17/23 05:00 Room Air 04/17/23 03:00 Room Air 04/17/23 00:00 60 04/17/23 01:00 Room Air 04/16/23 23:00 Room Air 04/17/23 00:00 98.6 F 61 18 116/62 96 Room Air 04/16/23 21:00 Room Air 04/16/23 20:00 98.3 F 61 18 106/55 L 98 Room Air 04/16/23 20:00 Room Air 04/16/23 20:21 60 04/16/23 17:00 Room Air 04/16/23 15:00 Room Air 04/16/23 15:50 97.6 F 60 18 114/62 97 Room Air 04/16/23 13:00 Room Air 04/16/23 11:00 Room Air 04/16/23 09:00 Room Air Intake and Output 04/16/23 04/17/23 04/17/23 23:59 07:59 15:59 Intake Total 540 / 2200 760 / 760 Output Total 2525 / 5775 1100 / 1100 Balance -1985 / -3575 -340 / -340 Intake: Intake, Oral Amount 540 / 1700 660 / 660 Intake, Total IV Amount 100 / 100 Cefepime HCl 2 gm In 0.9 % 100 / 100 Sodium Chloride 100 ml @ 200 mls/hr IV Q12H [facility] Rx#:[id number] Output: Output, Urine Amount 2525 / 5775 1100 / 1100 Other: Number of Unmeasured Voids 0 Number of Bowel Movements 0 Weight 108.522 kg Laboratory Results - last 24 hr 04/16/23 10:12: POC Glucose 195 H 04/16/23 16:29: POC Glucose 184 H 04/16/23 18:12: Sodium 133 L, Potassium 4.4, Chloride 94 L, Carbon Dioxide 32 H, Anion Gap 11.4, BUN 59 H, Creatinine 3.20 H, Estimated Creat Clear 38, Estimated GFR 20 L, Est GFR ( Amer) 24 L, Glucose 178 H D, Calcium 9.8 04/16/23 20:02: POC Glucose 246 H 04/17/23 05:46: WBC 8.2, RBC 3.41 L, Hgb 10.0 L, Hct 31.4 L, MCV 91.9, MCH 29.3, MCHC 31.8, RDW 18.8 H, Plt Count 279, MPV 8.3, Neut % (Auto) 68.9, Lymph % (Auto) 19.9, [place] % (Auto) 8.7, Eos % (Auto) 2.2, Baso % (Auto) 0.3, Neut # (Auto) 5.6, Lymph # (Auto) 1.6, [place] # (Auto) 0.7, Eos # (Auto) 0.2, Baso # (Auto) 0.0, Sodium 135 L, Potassium 4.4, Chloride 96 L, Carbon Dioxide 34 H, Anion Gap 9.4, BUN 66 H, Creatinine 3.00 H, Estimated Creat Clear 41, Estimated GFR 22 L, Est GFR ( Amer) 26 L, Glucose 60 L D, Calcium 9.6, Magnesium 2.2, Total Bilirubin 1.0, AST 85 H, ALT 50, Alkaline Phosphatase 246 H, Total Protein 7.2, Albumin 3.6, Globulin 3.6 H, Albumin/Globulin Ratio 1.0 L 04/17/23 05:53: POC Glucose 99 I & O for Labs for Last 24 Hours: Intake & Output 04/14/23 04/15/23 04/16/23 04/17/23 23:59 23:59 23:59 23:59 Intake Total 2585.583 / 2727.583 1933 / 1933 1740 / 2200 760 / 760 Output Total 4800 / 4800 9200 / 9200 5325 / 5775 1100 / 1100 Balance -2214.417 / -2072.417 -7267 / -7267 -3585 / -3575 -340 / -340 Weight 108.522 kg 108.522 kg Microbiology Reports for the Last 24 Hours: Microbiology 04/14/23 06:35 Blood Blood Culture - Preliminary 04/14/23 06:35 Blood Blood Culture - Preliminary The patient's infection will respond to the chosen ABx?: Yes (BLOOD CULTURE PENDING, TREAT CELLULITIS/LEG WOUNDS,WHITE COUNT 8.2,AFEBRILE) Is the patient receiving the right drug, dose, and route?: Yes Could a more targeted ABx be ordered?: No
[2023-04-17] MEDS: CEFEPIME HCL 2 GM in 0.9 % SODIUM CHLORIDE 100 ML IV (08:47)
--- NOTE | 2023-04-17 09:10 | PC.NURSE ---
Shaun Bush notified of critical [place] of 21.0
--- NOTE | 2023-04-17 09:19 | EXP.PHA.CONS ---
Pharmacy Consult Date: 04/17/23 Time: 09:20 Referring provider: DR. PULLIAM Reason for Consult:: VANCOMYCIN LEVEL AND DOSING CHANGE Allergies Allergy/AdvReac Type Severity Reaction Status Date / Time No Known Allergies Allergy Verified 04/13/23 10:33 Home Medications Medication Instructions Recorded Confirmed Type omeprazole 40 mg capsule,delayed 40 mg PO DAILY Acid reflux 03/21/22 04/14/23 History release dulaglutide 1.5 mg/0.5 mL 1.5 mg SQ WEEKLY Diabetes 06/04/22 04/14/23 History subcutaneous pen injector (Trulicity) albuterol sulfate 90 mcg/actuation 2 puff inhalation QIDP PRN 06/05/22 04/14/23 History aerosol inhaler shortness of breath or wheezing fluticasone propionate 50 1 spray intranasal DAILY Allergy 06/07/22 04/14/23 History mcg/actuation nasal Symptoms spray,suspension bisoprolol fumarate 5 mg tablet 5 mg PO DAILY High Blood Pressure 06/17/22 04/14/23 History bupropion HCl 150 mg tablet,12 hr 150 mg PO BID mood 01/10/23 04/14/23 History sustained-release insulin glargine 100 unit/mL (3 25 unit SQ HS Diabetes 01/10/23 04/14/23 History mL) subcutaneous pen (Lantus Solostar U-100 Insulin) amiodarone 200 mg tablet 200 mg PO BID Heart Rhythm 02/10/23 04/14/23 History clopidogrel 75 mg tablet 75 mg PO DAILY Blood Thinner 02/10/23 04/14/23 History mecobalamin (vitamin B12) 1,000 1,000 mcg PO DAILY Supplement 02/10/23 04/14/23 History mcg chewable tablet nitroglycerin 0.4 mg sublingual 0.4 mg sublingual Q5MINP PRN chest 02/10/23 04/14/23 History tablet pain tizanidine 2 mg capsule 2 mg PO TIDP PRN muscle spasticity 02/10/23 04/14/23 History tramadol 50 mg tablet 50 mg PO Q8HP PRN pain 02/10/23 04/14/23 History warfarin 2.5 mg tablet 2.5 mg PO DAILY LEFT VENTRICLE 02/10/23 04/14/23 History THROMBUS spironolactone 25 mg tablet 25 mg PO DAILY Fluid 60 days #60 02/21/23 04/14/23 Rx tabs metformin 1,000 mg tablet 1,000 mg PO BIDWMEAL Diabetes #180 03/13/23 04/14/23 Rx tabs bumetanide 1 mg tablet 2 mg PO BID PRN edema #120 tabs 03/23/23 04/14/23 Rx atorvastatin 80 mg tablet 80 mg PO DAILY #30 tabs 04/14/23 04/14/23 Rx sacubitril 97 mg-valsartan 103 mg 1 tab PO BID 04/14/23 04/14/23 History tablet (Entresto) New Prescriptions to Start Prescriptions: Height: 1.75 m Weight: 108.522 kg Laboratory Results:: Laboratory Results - last 24 hr 04/16/23 10:12: POC Glucose 195 H 04/16/23 16:29: POC Glucose 184 H 04/16/23 18:12: Sodium 133 L, Potassium 4.4, Chloride 94 L, Carbon Dioxide 32 H, Anion Gap 11.4, BUN 59 H, Creatinine 3.20 H, Estimated Creat Clear 38, Estimated GFR 20 L, Est GFR ( Amer) 24 L, Glucose 178 H D, Calcium 9.8 04/16/23 20:02: POC Glucose 246 H 04/17/23 05:46: WBC 8.2, RBC 3.41 L, Hgb 10.0 L, Hct 31.4 L, MCV 91.9, MCH 29.3, MCHC 31.8, RDW 18.8 H, Plt Count 279, MPV 8.3, Neut % (Auto) 68.9, Lymph % (Auto) 19.9, Cameron % (Auto) 8.7, Eos % (Auto) 2.2, Baso % (Auto) 0.3, Neut # (Auto) 5.6, Lymph # (Auto) 1.6, Cameron # (Auto) 0.7, Eos # (Auto) 0.2, Baso # (Auto) 0.0, Sodium 135 L, Potassium 4.4, Chloride 96 L, Carbon Dioxide 34 H, Anion Gap 9.4, BUN 66 H, Creatinine 3.00 H, Estimated Creat Clear 41, Estimated GFR 22 L, Est GFR ( Amer) 26 L, Glucose 60 L D, Calcium 9.6, Magnesium 2.2, Total Bilirubin 1.0, AST 85 H, ALT 50, Alkaline Phosphatase 246 H, Total Protein 7.2, Albumin 3.6, Globulin 3.6 H, Albumin/Globulin Ratio 1.0 L 04/17/23 05:53: POC Glucose 99 04/17/23 07:57: Vancomycin Trough 21.0 H Medical History: Medical History (Updated 04/15/23 @ 11:31 by Matthew Pulliam MD) Acute exacerbation of CHF (congestive heart failure) Acute exacerbation of CHF (congestive heart failure) Acute hyperkalemia Arthritis Asthma CAD (coronary artery disease) Cardiac volume overload Chronic kidney disease, stage 3a Coronary artery disease Deviated nasal septum Diabetes Diabetes mellitus, type 2 Dizziness Dysphagia Dyspnea Esophagitis GERD (gastroesophageal reflux disease) Globus sensation H/O blood clots Heart failure with reduced ejection fraction History of heart attack History of stroke HLD (hyperlipidemia) Hoarseness HTN (hypertension) Hyperglycemia due to diabetes mellitus Hypertension Lymphedema Neuropathy NYHA class 3 heart failure with reduced ejection fraction PAF (paroxysmal atrial fibrillation) Smoker Systolic heart failure Tobacco dependence syndrome Typical angina Assessment and Plan Assessment and plan all Dx Assessment and Plan for all problems:: Pharmacokinetic dosing service Weight: 108.5 Kilograms Vancomycin single level analysis: Current dose being given: 1500 mg Current dosing interval: 24 hrs Current infusion time (hrs): 2 Single level Trough Data: Trough level obtained: 21.0 mcg/ml Timing of trough - # of hrs before next dose: 0.5 Hrs Desired peak: 35 mcg/ml Desired trough: 15 mcg/ml Estimated PK Parameters: New rate constant (paige): 0.026 hr-1 Half-life: 26.66 Hours Vd from levels: 86.80 Liters (0.7 L/kg) CLvanco=?? 2.257 L/hr Estimated New Dose and Interval Recommended dose: 1849.6 mg Recommended interval: 34.6 Hrs Recommendations: Give Vancomycin 1750 mg q 36 hrs. Infuse over 2 hrs Expected Cpeak: 32.3 mcg/mL Expected Ctrough: 13.3 mcg/mL. START NEXT DOSE AT 2100. AUC 0-24 /ANNETTE Data: ANNETTE 0.5 mcg/mL:?? AUC/ANNETTE:? 1033.8 ANNETTE 1.0 mcg/mL:?? AUC/ANNETTE:? 516.9
--- NOTE | 2023-04-17 10:09 | HMH.PTEV ---
Physical Therapy Evaluation Rehab PT IP Evaluation Start: 04/16/23 17:11 Freq: ONCE Status: Active Protocol: Document 04/17/23 10:05 JESUS (Rec: 04/17/23 10:09 JESUS [id number]) Subjective/History History History 57 yowm adm to [facility] [place] with CHF exacerbation. He has PMH of CAD with CABG x 4v and stents, CKD, DM, CHF, HTN. He lives with his and requires assistance with most, if not all, ADLs. He generally uses a cane for ambulation at baseline. He presents with B anterior lower leg wounds on adm and c/o severe B LE pain. Subjective Subjective Pt reports he feels much better this date now that he has lost a significant amount of fluid with IV diuretics (~ 10 L). He continues to c/o weeping from B LE. New diagnosis of cancer in past 12 No months? Rehab PT IP Eval Objective Appearance Patient Behavior Appropriate Patient Orientation Person,Place,Time Difficulty following instructions none Speech Pattern Clear Ambulation Patient Able to Ambulate Yes Ambulation Observation IP General Gait Pattern Observation Wide Based Gait Ambulation Distance (feet) 30 Ambulation Assistive Device Straight Cane Ambulation Ability Supervision/Stand by Balance Ability to Arise Able, uses arms to help Sitting Balance Steady, safe Standing Balance Steady, wide stance Dynamic Sitting Balance Ability Good Dynamic Standing Balance Ability Fair Transfers Bed Transfer Ability Supervision/Stand by Chair Transfer Ability Supervision/Stand by Sit to Stand Bed Transfer Ability Supervision/Stand by Sit to Stand Chair Transfer Ability Supervision/Stand by ROM All Extremities PT ROM Status WFL MMT All Extremities PT MMT WFL Rehab PT IP prob,goals,plan Problems Date of Evaluation: 04/17/23 Discharge Plan PT Discharge Plan Pt is appropriate to return home once medically stable for d/c. Recommend home health therapy after d/c. Eval Complexity Eval Charge Codes 02623 - High Complexity PHYSICIAN CERTIFICATION: I certify the specified therapy services for Matthew Zayas are required, authorized, and reviewed every 30 days.
--- NOTE | 2023-04-17 11:23 | SW/DCPLANNER ---
Addendum entered by Fannie Sidhu 04/17/23 14:06: Per Ashly w/ [facility] services will start for this patient tomorrow 04/18/23. Addendum entered by Fannie Sidhu 04/17/23 13:33: Patient information/order has now been faxed to [facility] due to [facility] outpatient not having opening till next week for wound care. I will follow up w/ [facility] once information/order is reviewed. Original Note: I spoke w/ this patient regarding plans once medically stable for discharge. Patient will need wound care for unaboots at time of discharge. I discussed w/ patient and his the options of returning to [facility] outpatient Wound Care or home health. Patient at this time prefers to return to [facility] Outpatient Wound Care: I have updated MD and this will be ordered at time of discharge. Patient could potentially discharge home later today.
[2023-04-17 11:44] LABS: POC Glucose,Bedside 251 (70-110)
[2023-04-17] MEDS: humaLOG 100 UNITS/ML 3ML VIAL (SSI) SQ (11:44)
[2023-04-17 11:54] VITALS: BP 111/59; PULSE 60; RESP 18; TEMP 35.7; O2SAT 97
[2023-04-17 12:00] VITALS: PULSE 60
--- NOTE | 2023-04-17 12:09 | EXP.DC.SUM ---
General Admission date:: 04/14/23 Discharge date: 04/17/23 HPI HPI HPI: Mr. Zayas is a 57-year-old male well-known to our service who has a past medical history of CKD, CAD status post CABG x 4 10months ago, chronic anticoagulation on warfarin, paroxysmal A-fib, CHF, hypertension, hyperlipidemia, diabetes. He presented to the ER due to shortness of breath and increased swelling in his legs. States his shortness of breath is never really improved. Continues to have swelling in his legs. Swelling now up in his upper thighs and into his lower abdomen. Has followed with cardiology but continues to have worsening shortness of breath and swelling. Now having weeping from his legs bilaterally and significant pain. Both legs were red and warm. Workup in the ER showed elevation in BNP to 12k, creatinine of 2.8, potassium 4.7. BUN 44. Significant swelling in his legs with weeping from open wounds. Currently stable on room air. Weight over the past month is up 10 kg. Reports that he has been taking his spironolactone and Bumex, strong concern that he is not however given his weight gain and worsening edema. Denies any chest pain, nausea, vomiting, syncope. Dyspnea with any exertion. Unable to lay flat. No significant change in urine output. ER consulted medicine for admission. After arrival to the floor, patient noted to have significant lower extremity edema, erythema, and open wounds on both legs with serous drainage. More distressed than last exam at previous visit. Cardiology consulted. Patient's at bedside, she helps facilitate his medications. States he has been compliant with his medications since last discharge. Also reports however that she does not seem to take his meds, she calls while at work to remind him and trusts him to take them. Supposedly they are gone when she gets home. Hospital Course Hospital Course Hospital Course: 57-year-old status post CABG x4 10 months ago who presented to the ER because of worsening shortness of breath. Found to have acute exacerbation of his chronic CHF. Discussed case with ER, request admission for diuresis, antibiotics for possible cellulitis of his legs, and cardiology eval. Medicine agreed to admit. Initiated on Bumex drip, had good response over the first 48 hours. Transitioned to oral Bumex. Continue to have good diuresis with aggressive regimen adjustment and addition of spironolactone and metolazone. Given improvement, stable to discharge home to continue diuresis as an outpatient. Recommend follow-up with cardiology. Problems addressed as follows during hospitalization: Acute on chronic CHF NYHA class III heart failure History of CABG x 4 Paroxysmal A-fib Hyperlipidemia -Cardiology consulted, appreciate their recommendations.? Patient was initiated on Bumex drip to address his volume overload and edema. Showed significant response with aggressive diuresis during admission. Diuretics weaned to Bumex 1 mg p.o. twice daily to discharge home on in addition to spironolactone and metolazone. Continues to be -1 to 2 L daily on this current regimen. Patient over 14 L negative since admission. Electrolytes were monitored, remained stable during admission. Creatinine has gradually crept up over the past 2 months. Current creatinine 3.1. Still has excessive volume overload however and needs continued diuresis after discharge while at home. Stable on room air, no oxygen requirement during admission. Continue hydralazine 25 mg 3 times a day, isosorbide 60 mg daily, verquvo 2.5 mg daily, amiodarone 200 mg twice daily, and bisoprolol 5 mg daily. Discontinue Entresto with worsening kidney function. Blood pressure acceptable at this time. Holding Plavix and warfarin in the setting of planned scope next week. Echo with improved EF of 40%, no visualization of thrombus. -AICD in place EMMA on CKD: BUN 60, creatinine 3.1 with diuresis. Elevated from most recent levels in the low 2 range. Needs continued monitoring, recommend repeat labs in 1 to 2 weeks to monitor electrolytes and creatinine. Cellulitis: Concern for cellulitis in his legs with weeping wounds. Dressings on lesions, intolerant of [place] boots due to pain initially. Able to place prior to discharge after aggressive diuresis and improvement in swelling. Saturating rapping and less than a day. Initially treated with cefepime 2 g every 12 hours, will transition to Keflex to complete course with 3 more days of oral antibiotics. White cell count remained stable and normal at 8.2 by day of discharge. No fever or systemic symptoms. Type 2 diabetes: Insulin-dependent. A1c 7.6 this visit. Previously 6.6 in January. Continued home glargine and sliding scale insulin during admission. Resume home regimen at discharge. Continued home Wellbutrin for mood Of note: Discontinued warfarin as there is no mural thrombus on echo and EF had improved. No clear indication for anticoagulation at this time. Total time spent on discharge 38 minutes in counseling, documentation, chart review, and direct care with patient. Exam Data for Last 24 hours Vital signs and Labs for Last 24 Hours: Temp Pulse Resp BP Pulse Ox O2 Del Method 96.3 F L 60 18 111/59 L 97 Room Air 04/17/23 11:54 04/17/23 11:54 04/17/23 11:54 04/17/23 11:54 04/17/23 11:54 04/17/23 11:54 Laboratory Results - last 24 hr 04/16/23 16:29: POC Glucose 184 H 04/16/23 18:12: Sodium 133 L, Potassium 4.4, Chloride 94 L, Carbon Dioxide 32 H, Anion Gap 11.4, BUN 59 H, Creatinine 3.20 H, Estimated Creat Clear 38, Estimated GFR 20 L, Est GFR ( Amer) 24 L, Glucose 178 H D, Calcium 9.8 04/16/23 20:02: POC Glucose 246 H 04/17/23 05:46: WBC 8.2, RBC 3.41 L, Hgb 10.0 L, Hct 31.4 L, MCV 91.9, MCH 29.3, MCHC 31.8, RDW 18.8 H, Plt Count 279, MPV 8.3, Neut % (Auto) 68.9, Lymph % (Auto) 19.9, [place] % (Auto) 8.7, Eos % (Auto) 2.2, Baso % (Auto) 0.3, Neut # (Auto) 5.6, Lymph # (Auto) 1.6, [place] # (Auto) 0.7, Eos # (Auto) 0.2, Baso # (Auto) 0.0, Sodium 135 L, Potassium 4.4, Chloride 96 L, Carbon Dioxide 34 H, Anion Gap 9.4, BUN 66 H, Creatinine 3.00 H, Estimated Creat Clear 41, Estimated GFR 22 L, Est GFR ( Amer) 26 L, Glucose 60 L D, Calcium 9.6, Magnesium 2.2, Total Bilirubin 1.0, AST 85 H, ALT 50, Alkaline Phosphatase 246 H, Total Protein 7.2, Albumin 3.6, Globulin 3.6 H, Albumin/Globulin Ratio 1.0 L 04/17/23 05:53: POC Glucose 99 04/17/23 07:57: Vancomycin Trough 21.0 H 04/17/23 11:37: POC Glucose 251 H I & O for Last 24 hours: Intake & Output 04/14/23 04/15/23 04/16/23 04/17/23 23:59 23:59 23:59 23:59 Intake Total 2585.583 / 2727.583 1933 / 1933 1740 / 2200 760 / 760 Output Total 4800 / 4800 9200 / 9200 5325 / 5775 2825 / 2825 Balance -2214.417 / -2072.417 -7267 / -7267 -3585 / -3575 -2065 / -2065 Weight 108.522 kg 108.522 kg 108.522 kg Microbiology Reports for the Last 24 Hours: Microbiology 04/14/23 06:35 Blood Blood Culture - Preliminary 04/14/23 06:35 Blood Blood Culture - Preliminary Constitutional Constitutional: no acute distress and chronically ill appearing *Routine HEENT Exam Head: Present normocephalic and atraumatic ENT: Present mucous membranes moist *Routine Neck Exam Neck: Present supple Routine Chest/Breast/Axilla Exam Chest wall: Absent tenderness *Routine Respiratory Exam Respiratory: Present CTA bilaterally and normal respiratory effort; Absent rhonchi, wheezes or crackles *Routine Cardiovascular Exam Cardiovascular: Present RRR *Routine Abdominal Exam Abdominal: Present soft and normoactive bowel sounds *Routine Rectal Exam Patient deferred: visual exam *Routine Exam Patient deferred: penile exam *Routine Extremities Exam Extremities: Present edema (2+ BLE, improved ); Absent cyanosis or clubbing Comments: weeping lesions on BLE. *Routine Skin Exam Skin: Present intact; Absent cyanosis, erythema or pallor *Routine Neurological Exam Neurological: Present alert, oriented X3, CN II-XII intact, moving all extremities and normal speech; Absent altered mental status Results Data Completed and Pending Labs on day of discharge: Labs from last 24 hours 04/17/23 04/17/23 04/17/23 11:37 07:57 05:53 WBC RBC Hgb Hct MCV MCH MCHC RDW Plt Count MPV Neut % (Auto) Lymph % (Auto) [place] % (Auto) Eos % (Auto) Baso % (Auto) Neut # (Auto) Lymph # (Auto) [place] # (Auto) Eos # (Auto) Baso # (Auto) Sodium Potassium Chloride Carbon Dioxide Anion Gap BUN Creatinine Estimated Creat Clear Estimated GFR Est GFR ( Amer) Glucose POC Glucose 251 H 99 Calcium Magnesium Total Bilirubin AST ALT Alkaline Phosphatase Total Protein Albumin Globulin Albumin/Globulin Ratio Vancomycin Trough 21.0 H 04/17/23 04/16/23 04/16/23 05:46 20:02 18:12 WBC 8.2 RBC 3.41 L Hgb 10.0 L Hct 31.4 L MCV 91.9 MCH 29.3 MCHC 31.8 RDW 18.8 H Plt Count 279 MPV 8.3 Neut % (Auto) 68.9 Lymph % (Auto) 19.9 [place] % (Auto) 8.7 Eos % (Auto) 2.2 Baso % (Auto) 0.3 Neut # (Auto) 5.6 Lymph # (Auto) 1.6 [place] # (Auto) 0.7 Eos # (Auto) 0.2 Baso # (Auto) 0.0 Sodium 135 L 133 L Potassium 4.4 4.4 Chloride 96 L 94 L Carbon Dioxide 34 H 32 H Anion Gap 9.4 11.4 BUN 66 H 59 H Creatinine 3.00 H 3.20 H Estimated Creat Clear 41 38 Estimated GFR 22 L 20 L Est GFR ( Amer) 26 L 24 L Glucose 60 L D 178 H D POC Glucose 246 H Calcium 9.6 9.8 Magnesium 2.2 Total Bilirubin 1.0 AST 85 H ALT 50 Alkaline Phosphatase 246 H Total Protein 7.2 Albumin 3.6 Globulin 3.6 H Albumin/Globulin Ratio 1.0 L Vancomycin Trough 04/16/23 16:29 WBC RBC Hgb Hct MCV MCH MCHC RDW Plt Count MPV Neut % (Auto) Lymph % (Auto) [place] % (Auto) Eos % (Auto) Baso % (Auto) Neut # (Auto) Lymph # (Auto) [place] # (Auto) Eos # (Auto) Baso # (Auto) Sodium Potassium Chloride Carbon Dioxide Anion Gap BUN Creatinine Estimated Creat Clear Estimated GFR Est GFR ( Amer) Glucose POC Glucose 184 H Calcium Magnesium Total Bilirubin AST ALT Alkaline Phosphatase Total Protein Albumin Globulin Albumin/Globulin Ratio Vancomycin Trough Preliminary micro results at discharge 04/14/23 06:35 Blood Culture - Preliminary Blood 04/14/23 06:35 Blood Culture - Preliminary Blood DS: Diagnosis Discharge Diagnosis (1) Acute exacerbation of CHF (congestive heart failure): Status: Acute Code(s): I50.9 - Heart failure, unspecified (2) NYHA class 3 heart failure with reduced ejection fraction: Status: Acute Code(s): I50.20 - Unspecified systolic (congestive) heart failure Problem details: Patient is following with cardiology. (3) Chronic kidney disease, stage 3a: Status: Acute Code(s): N18.31 - Chronic kidney disease, stage 3a (4) S/P CABG (coronary artery bypass graft): Status: Chronic Code(s): Z95.1 - Presence of aortocoronary bypass graft (5) PAF (paroxysmal atrial fibrillation): Status: Acute Code(s): I48.0 - Paroxysmal atrial fibrillation (6) CAD (coronary artery disease): Status: Acute Code(s): I25.10 - Atherosclerotic heart disease of [place] coronary artery without angina pectoris Qualifiers: Associated angina: without angina Coronary Disease-Associated Artery/Lesion type: [place] artery [place] vs. transplanted heart: [place] heart Qualified Code(s): I25.10 - Atherosclerotic heart disease of [place] coronary artery without angina pectoris (7) GERD (gastroesophageal reflux disease): Status: Inactive Code(s): K21.9 - Gastro-esophageal reflux disease without esophagitis (8) Tobacco dependence syndrome: Status: Acute Code(s): F17.200 - Nicotine dependence, unspecified, uncomplicated Problem details: Patient strongly encouraged to quit tobacco, however patient has adamantly refused to quit smoking. (9) HLD (hyperlipidemia): Status: Acute Code(s): E78.5 - Hyperlipidemia, unspecified Qualifiers: Hyperlipidemia type: mixed hyperlipidemia Qualified Code(s): E78.2 - Mixed hyperlipidemia (10) HTN (hypertension): Status: Acute Code(s): I10 - Essential (primary) hypertension Qualifiers: Hypertension type: essential hypertension Qualified Code(s): I10 - Essential (primary) hypertension Problem details: I do question the compliance of this patient with his medications. He is on a very complicated medical regimen when I look at his blood pressures over the past year or 2 his pressures have gone up here at the clinic. He is not checking his blood pressures at home. Will continue with current medications however we will discuss with Nany here at the clinic options for this ramakrishna. 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: without intermodal truck driver use Diabetes mellitus type: type 2 Qualified Code(s): E11.69 - Type 2 diabetes mellitus with other specified complication (12) Cellulitis: Status: Acute Code(s): L03.90 - Cellulitis, unspecified Qualifiers: Laterality: unspecified laterality Site of cellulitis: extremity Site of cellulitis of extremity: lower extremity Qualified Code(s): L03.119 - Cellulitis of unspecified part of limb Meds Home Medications and Allergies Home Medications Medication Instructions Recorded Confirmed Type omeprazole 40 mg capsule,delayed 40 mg PO DAILY Acid reflux 03/21/22 04/19/23 History release dulaglutide 1.5 mg/0.5 mL 1.5 mg SQ WEEKLY Diabetes 06/04/22 04/19/23 History subcutaneous pen injector (Trulicity) albuterol sulfate 90 mcg/actuation 2 puff inhalation QIDP PRN 06/05/22 04/19/23 History aerosol inhaler shortness of breath or wheezing fluticasone propionate 50 1 spray intranasal DAILY Allergy 06/07/22 04/19/23 History mcg/actuation nasal Symptoms spray,suspension bisoprolol fumarate 5 mg tablet 5 mg PO DAILY High Blood Pressure 06/17/22 04/19/23 History bupropion HCl 150 mg tablet,12 hr 150 mg PO BID mood 01/10/23 04/19/23 History sustained-release insulin glargine 100 unit/mL (3 25 unit SQ HS Diabetes 01/10/23 04/19/23 History mL) subcutaneous pen (Lantus Solostar U-100 Insulin) amiodarone 200 mg tablet 200 mg PO BID Heart Rhythm 02/10/23 04/19/23 History clopidogrel 75 mg tablet 75 mg PO DAILY Blood Thinner 02/10/23 04/19/23 History mecobalamin (vitamin B12) 1,000 1,000 mcg PO DAILY Supplement 02/10/23 04/19/23 History mcg chewable tablet nitroglycerin 0.4 mg sublingual 0.4 mg sublingual Q5MINP PRN chest 02/10/23 04/19/23 History tablet pain tizanidine 2 mg capsule 2 mg PO TIDP PRN muscle spasticity 02/10/23 04/19/23 History tramadol 50 mg tablet 50 mg PO Q8HP PRN pain 02/10/23 04/19/23 History metformin 1,000 mg tablet 1,000 mg PO BIDWMEAL Diabetes #180 03/13/23 04/19/23 Rx tabs atorvastatin 80 mg tablet 80 mg PO DAILY #30 tabs 04/14/23 04/19/23 Rx bumetanide 1 mg tablet 1 mg PO BID 30 days #60 tabs 04/17/23 04/19/23 Rx cephalexin 500 mg capsule 500 mg PO TID 3 days #9 caps 04/17/23 04/19/23 Rx hydralazine 25 mg tablet 25 mg PO TID 30 days #90 tabs 04/17/23 04/19/23 Rx isosorbide mononitrate 60 mg 60 mg PO DAILY 30 days #30 tabs 04/17/23 04/19/23 Rx tablet,extended release 24 hr metolazone 2.5 mg tablet 5 mg PO DAILY 30 days #60 tabs 04/17/23 04/19/23 Rx spironolactone 25 mg tablet 25 mg PO DAILY Fluid 30 days #30 04/17/23 04/19/23 Rx tabs vericiguat 2.5 mg tablet (Verquvo) 2.5 mg PO DAILY 30 days #30 tabs 04/17/23 04/19/23 Rx warfarin 2.5 mg tablet 2.5 mg PO DAILY 04/19/23 04/19/23 History New Prescriptions to Start Prescriptions: bumetanide Shari,Matthew cephalexin Shari,Matthew hydralazine Shari,Matthew isosorbide mononitrate Shari,Matthew metolazone Shari,Matthew Verquvo Matthew Mccarthy Allergies Allergy/AdvReac Type Severity Reaction Status Date / Time No Known Allergies Allergy Verified 04/19/23 13:09 Discharge Plan Disposition Patient Disposition: Home Health Service Condition: Fair Discharge Order Discharge Orders: Discharge Order (Routine); Ordered 04/17/23 Ordered By: Matthew Mccarthy Follow up Plan Follow up with: Mal Barfield DO [Primary Care Provider] - 04/25/23 2:30 pm Shay Tarango MD [Staff Physician] - 05/03/23 2:15 pm Prescriptions/Medication Reconciliation: New metolazone 2.5 mg Tablet 5 mg PO DAILY 30 Days Qty: 60 0RF isosorbide mononitrate 60 mg Tablet Extended Release 24 Hr 60 mg PO DAILY 30 Days Qty: 30 0RF Verquvo 2.5 mg Tablet 2.5 mg PO DAILY 30 Days Qty: 30 0RF hydralazine 25 mg Tablet 25 mg PO TID 30 Days Qty: 90 0RF cephalexin 500 mg capsule 500 mg PO TID 3 Days Qty: 9 0RF Continued metformin 1,000 mg tablet 1,000 mg PO BIDWMEAL Qty: 180 0RF atorvastatin 80 mg tablet 80 mg PO DAILY Qty: 30 3RF omeprazole 40 mg capsule,delayed release(DR/EC) 40 mg PO DAILY Trulicity 1.5 mg/0.5 mL pen injector 1.5 mg SQ WEEKLY albuterol sulfate 90 mcg/actuation HFA aerosol inhaler 2 puff inhalation QIDP PRN (Reason: shortness of breath or wheezing) fluticasone propionate 50 mcg/actuation [place],Suspension 1 spray INTRANASAL DAILY Rx Instructions: administer into each nostril bisoprolol fumarate 5 mg tablet 5 mg PO DAILY amiodarone 200 mg tablet 200 mg PO BID clopidogrel 75 mg tablet 75 mg PO DAILY Patient Comments: Pt instructed to stop plavix today for scheduled EGD tramadol 50 mg tablet 50 mg PO Q8HP PRN (Reason: pain) nitroglycerin 0.4 mg tablet, sublingual 0.4 mg sublingual Q5MINP PRN (Reason: chest pain) Rx Instructions: do not exceed 3 doses per episode tizanidine 2 mg capsule 2 mg PO TIDP PRN (Reason: muscle spasticity) Rx Instructions: Per pt's , taking a couple times per week mecobalamin (vitamin B12) 1,000 mcg tablet,chewable 1,000 mcg PO DAILY bupropion HCl 150 mg tablet sustained-release 12 hr 150 mg PO BID Patient Comments: Take 1 tablet by mouth twice daily insulin glargine [Lantus Solostar U-100 Insulin] 100 unit/mL (3 mL) insulin pen 25 unit SQ HS spironolactone 25 mg tablet 25 mg PO DAILY 30 Days Qty: 30 2RF Changed bumetanide 1 mg tablet 1 mg PO BID 30 Days Qty: 60 5RF Rx Instructions: Take 2 mg in morning and 1 mg in afternoon daily Per pt's , taking 2mg in the morning and 2mg at bedtime Discontinued warfarin 2.5 mg Tablet 2.5 mg PO DAILY Patient Comments: Was instructed to stop warfarin starting today for EGD scheduled for monday Entresto 97-103 mg tablet 1 tab PO BID No Action warfarin 2.5 mg tablet 2.5 mg PO DAILY Patient Comments: TAKE 1 TABLET BY MOUTH ONCE DAILY OR DIRECTED Other Ambulatory Orders: Rehab Eval, OP (Routine) Timeframe: 2 Days Facility: [facility] - Location: Physical Therapy Ordered By: Matthew Mccarthy Problem Reconciliation Problems Reviewed?: Yes Patient Discharge Instructions ACTIVITY: Continue current activity DIET: continue same diet Patient Instructions: DI for Heart Failure, DI for Heart Failure Exacerbations, Coumadin Vitamin K/ Diet, Catheter-Associated Urinary Tract Infection Providers Primary Care Provider: Mal Barfield Admit Provider: Matthew Mccarthy Attending Provider: Matthew Mccarthy
--- NOTE | 2023-04-17 12:10 | EXP.CARD.PN ---
Subjective Subjective Date: 04/17/23 Time: 12:10 Principal diagnosis: CHF Interval history: 57-year-old white male admitted with acute on chronic heart failure and severe anasarca. Patient has diuresed greater than 14 L during his stay. His legs are significantly improved. Focus has been ongoing simplifying patient's medications so that he will take them at home. He states he is ready to go home today. Exam Data for Last 24 hours Vital signs and Labs for Last 24 Hours: Temp Pulse Resp BP Pulse Ox O2 Del Method 96.3 F L 60 18 111/59 L 97 Room Air 04/17/23 11:54 04/17/23 11:54 04/17/23 11:54 04/17/23 11:54 04/17/23 11:54 04/17/23 11:54 Laboratory Results - last 24 hr 04/16/23 16:29: POC Glucose 184 H 04/16/23 18:12: Sodium 133 L, Potassium 4.4, Chloride 94 L, Carbon Dioxide 32 H, Anion Gap 11.4, BUN 59 H, Creatinine 3.20 H, Estimated Creat Clear 38, Estimated GFR 20 L, Est GFR ( Amer) 24 L, Glucose 178 H D, Calcium 9.8 04/16/23 20:02: POC Glucose 246 H 04/17/23 05:46: WBC 8.2, RBC 3.41 L, Hgb 10.0 L, Hct 31.4 L, MCV 91.9, MCH 29.3, MCHC 31.8, RDW 18.8 H, Plt Count 279, MPV 8.3, Neut % (Auto) 68.9, Lymph % (Auto) 19.9, [place] % (Auto) 8.7, Eos % (Auto) 2.2, Baso % (Auto) 0.3, Neut # (Auto) 5.6, Lymph # (Auto) 1.6, [place] # (Auto) 0.7, Eos # (Auto) 0.2, Baso # (Auto) 0.0, Sodium 135 L, Potassium 4.4, Chloride 96 L, Carbon Dioxide 34 H, Anion Gap 9.4, BUN 66 H, Creatinine 3.00 H, Estimated Creat Clear 41, Estimated GFR 22 L, Est GFR ( Amer) 26 L, Glucose 60 L D, Calcium 9.6, Magnesium 2.2, Total Bilirubin 1.0, AST 85 H, ALT 50, Alkaline Phosphatase 246 H, Total Protein 7.2, Albumin 3.6, Globulin 3.6 H, Albumin/Globulin Ratio 1.0 L 04/17/23 05:53: POC Glucose 99 04/17/23 07:57: Vancomycin Trough 21.0 H 04/17/23 11:37: POC Glucose 251 H I & O for Last 24 hours: Intake & Output 04/15/23 04/16/23 04/17/23 04/18/23 11:59 11:59 11:59 11:59 Intake Total 2928.583 / 2928.583 1610 / 1610 2200 / 2200 Output Total 00984 / 32417 5800 / 6150 6100 / 6100 Balance -7321.417 / -7321.417 -4190 / -4540 -3900 / -3900 Weight 239 lb 4.001 oz Microbiology Reports for the Last 24 Hours: Microbiology 04/14/23 06:35 Blood Blood Culture - Preliminary 04/14/23 06:35 Blood Blood Culture - Preliminary Constitutional Constitutional: no acute distress *Routine Respiratory Exam Respiratory: Present CTA bilaterally *Routine Cardiovascular Exam Cardiovascular: Present RRR *Routine Extremities Exam Extremities: Present edema *Routine Neurological Exam Neurological: Present alert and oriented X3 Progress Note: A&P Assessment and plan (1) Acute exacerbation of CHF (congestive heart failure): Status: Acute (2) NYHA class 3 heart failure with reduced ejection fraction: Problem details: Patient is following with cardiology. Status: Acute (3) Chronic kidney disease, stage 3a: Status: Acute (4) S/P CABG (coronary artery bypass graft): Status: Chronic (5) PAF (paroxysmal atrial fibrillation): Status: Acute (6) CAD (coronary artery disease): Status: Acute (7) GERD (gastroesophageal reflux disease): Status: Inactive (8) Tobacco dependence syndrome: Problem details: Patient strongly encouraged to quit tobacco, however patient has adamantly refused to quit smoking. Status: Acute (9) HLD (hyperlipidemia): Status: Acute (10) HTN (hypertension): Problem details: I do question the compliance of this patient with his medications. He is on a very complicated medical regimen when I look at his blood pressures over the past year or 2 his pressures have gone up here at the clinic. He is not checking his blood pressures at home. Will continue with current medications however we will discuss with Nany here at the clinic options for this ramakrishna. Status: Acute (11) Diabetes: Status: Inactive (12) Cellulitis: Status: Acute Assessment and Plan Assessment and Plan for All Diagnoses:: 1. HFrEF, acute on chronic with EF now 40% (03/2023) with [place] BiV ICD in place -Improved with diuretic therapy (net output greater than 14 L) 2. Acute on chronic renal failure -Chronic anemia with hemoglobin around 10 -Creatinine around 3-3.2 with GFR of 22 on 04/17/2023 3. Anasarca with lower extremity ulcerations -No evidence of DVT or significant PAD on scans 04/11/2023 4. Possible LV thrombus, not seen on limited echo this admission -EF 40% 5. History of PAF, currently NSR on Coumadin therapy and amiodarone therapy 6. CAD with CABG in 2022, clinically stable 7. Noncompliance which is a great issue in all of his medical therapy Clinically stable for discharge home. Home cardiac recommendations: Atorvastatin 40 mg daily Amiodarone 200 mg twice daily Bisoprolol 5 mg daily Spironolactone 50 mg daily Metolazone 5 mg daily Bumex 1 mg twice daily Verquvo 2.5 mg daily Imdur 60 mg daily Jardiance 10 mg daily Hydralazine 25 mg 3 times daily Coumadin as directed by Coumadin clinic Follow-up in our office in 1 to 2 weeks with BMP and BNP.
[2023-04-17] MEDS: BUMETANIDE 1 MG TABLET PO (13:27)
--- NOTE | 2023-04-18 13:07 | CARE MANAGER ---
Contacted patient's related to patient's hospital stay. She states he is doing ok. Home health did reach out and they wanted to come out to see him today but she would like to be there, however, she is currently at work. Will provide HH with 's phone number. Denies any questions.
== END 2023-04-17 13:40 | disposition home health service (06) | DRG 291 ==
LOC: ER 07:25 → 2ND 07:46
PROVIDERS: Physician Assistant; Admitting Provider Internal Medicine Adolescent Medicine; Emergency Provider Emergency Medicine; PCP Internal Medicine; Visit Provider Internal Medicine Adolescent Medicine
DX: I13.0 Hypertensive heart and chronic kidney disease with heart failure and stage 1 through stage 4 chronic kidney disease, or unspecified chronic kidney disease (principal); I50.23 Acute on chronic systolic (congestive) heart failure; N17.9 Acute kidney failure, unspecified; L03.116 Cellulitis of left lower limb; L03.115 Cellulitis of right lower limb; E11.22 Type 2 diabetes mellitus with diabetic chronic kidney disease; N18.31 Chronic kidney disease, stage 3a; Z95.1 Presence of aortocoronary bypass graft; I48.0 Paroxysmal atrial fibrillation; I25.10 Atherosclerotic heart disease of native coronary artery without angina pectoris; K21.9 Gastro-esophageal reflux disease without esophagitis; F17.200 Nicotine dependence, unspecified, uncomplicated; E78.2 Mixed hyperlipidemia; Z79.01 Long term (current) use of anticoagulants; E78.5 Hyperlipidemia, unspecified; Z79.4 Long term (current) use of insulin; Z71.6 Tobacco abuse counseling
CPT/HCPCS: 36415; 71045; 80048; 80053; 80202; 82962; 83036; 83735; 83880; 84484; 85025; 85610; 87040; 93005; 93308; 97163; 99285; J2543; J3475

== ENCOUNTER 2023-04-19 12:26 | Day surgery (SDC) | payer MEDICARE, SELFPAY ==
[2023-04-18 13:11] VITALS: BMI 34.9
--- NOTE | 2023-04-19 13:16 | EXP.ANES.CKL ---
[facility] Disclaimer: The information contained in this section may have been updated after the patient was seen, as this information can be updated by other users. Medical History Acute exacerbation of CHF (congestive heart failure) Acute exacerbation of CHF (congestive heart failure) Acute hyperkalemia Arthritis Asthma CAD (coronary artery disease) Cardiac volume overload Chronic kidney disease, stage 3a Coronary artery disease Deviated nasal septum Diabetes Diabetes mellitus, type 2 Dizziness Dysphagia Dyspnea Esophagitis GERD (gastroesophageal reflux disease) Globus sensation H/O blood clots Heart failure with reduced ejection fraction History of heart attack History of stroke HLD (hyperlipidemia) Hoarseness HTN (hypertension) Hyperglycemia due to diabetes mellitus Hypertension Lymphedema Neuropathy NYHA class 3 heart failure with reduced ejection fraction PAF (paroxysmal atrial fibrillation) Smoker Systolic heart failure Tobacco dependence syndrome Typical angina Surgical History History of heart artery stent S/P CABG (coronary artery bypass graft) S/P CABG x 4 Family History Other Cancer Coronary artery disease Diabetes Hypertension Kidney disease Stroke Social History Smoking Status: Former smoker tobacco type: cigarettes packs per day: 1 second hand exposure: Yes alcohol intake: never counseling provided: none substance use type: denies use current occupational status: disabled and other Travel in the last 8 weeks: None household members: family housing: house caffeine: Yes [facility] Anesthesia Checklist Patient Identification Patient Identification: Arm Band and Verbal (Name & ) Structural Data Admitted From: Home Planned Operative Procedure/s: EGD Consent for Planned Operative Procedure(s) Verified: Yes NPO Status Verified Time NPO: 00:00 Additional verifications Anesthesia Reactions: No Airway Assessment Mallampati Score:: Class III C-Spine Mobility Assessed: Yes Dentition: Edentulous Neurological Assessment Level of Consciousness: Awake Hx Seizures: No Numbness or tingling in extremities: No Anesthesia Plan Anesthesia Risk discussed: Yes Anesthesia Plan: Verified ASA Class: IV Anesthesia Type: MAC
[2023-04-19 13:26] VITALS: BP 106/52; PULSE 64; RESP 20; TEMP 36.4; O2SAT 98
[2023-04-19] MEDS: LACTATED RINGERS 1000ML 1,000 ML 25 ML IV (13:32)
[2023-04-19 13:39] VITALS: O2SAT 98
--- NOTE | 2023-04-19 13:50 | HMH.SCOPE ---
Procedure: Date: 04/19/23 Patient Date of :: 1965 Procedure Performed:: EGD Indications:: The patient is a 57-year-old who presents for EGD evaluation of dysphagia symptom and globus sensation Performing Provider:: Zane White MD Referring Provider:: Mal Calvin DO Sedation:: See RN records Procedure:: The gastroscope was gently passed through the incisoral orifice into the oral cavity and under direct visualization the esophagus was intubated. The endoscope was passed down the esophagus, through the stomach, and into the duodenum. Color, texture, mucosa, and anatomy of the esophagus, stomach, and duodenum were carefully examined with the scope. Findings:: There was a gastric inlet patch in the upper esophagus. The Z-line was measured at 44 cm and was irregular. There was mild inflammation of the gastric antrum and body characterized by erythema. Biopsies were obtained with a cold forceps for histology. The examined duodenum appeared normal. The gastroscope was withdrawn and a 56 [employer] dilator was used to empirically dilate the esophagus. The gastroscope was reinserted and there was no mucosal esophageal tear or bleeding from the esophagus post dilation. Patient tolerated the procedure well Recommendations:: Await pathology result If patient's dysphagia symptom or globus sensation does not improve after esophageal dilatation, then consider barium esophagram with tablet Follow-up with referring provider as previously scheduled Complications:: None Estimated blood obtained (mL): 0 Colonoscopy Component Colonoscopy Component Was a colonoscopy performed during today's procedure?: No
[2023-04-19 13:51] VITALS: BP 98/47; PULSE 60; RESP 14; TEMP 36.1; O2SAT 97
[2023-04-19 14:01] VITALS: BP 120/64; PULSE 59; RESP 17; O2SAT 97
[2023-04-19 14:11] VITALS: BP 115/66; PULSE 60; RESP 18; O2SAT 97
[2023-04-19 14:21] VITALS: BP 112/63; PULSE 60; RESP 17; O2SAT 97
[2023-04-21 08:45] LABS: POC Glucose,Bedside 117 (70-110)
== END 2023-04-19 14:38 | disposition home or self-care (01) ==
PROVIDERS: PCP Internal Medicine; Visit Provider Internal Medicine
PROC: 0DJ08ZZ Inspection of Upper Intestinal Tract, Via Natural or Artificial Opening Endoscopic (ICD-10-PCS; CPT 43235; principal; 2023-04-19 13:30)
DX: R13.10 Dysphagia, unspecified (principal); K29.70 Gastritis, unspecified, without bleeding; Q39.8 Other congenital malformations of esophagus; E11.9 Type 2 diabetes mellitus without complications
CPT/HCPCS: 43239; 43248; 82962; 88305

== ENCOUNTER 2023-04-26 22:43 | Emergency (ER) | payer MEDICARE, SELFPAY ==
[2023-04-26 22:44] VITALS: BP 120/55; RESP 20; TEMP 36.8; O2SAT 96; BMI 34.7
--- NOTE | 2023-04-26 22:46 | CT_ITS ---
PROCEDURE INFORMATION: Exam: CT Head Without Contrast Exam date and time: 04/26/2023 11:47 PM Age: 57 years old Clinical indication: Syncope and collapse; Additional info: Syncopal episode, weakness TECHNIQUE: Imaging protocol: Computed tomography of the head without contrast. Radiation optimization: All CT scans at this facility use at least one of these dose optimization techniques: automated exposure control; mA and/or kV adjustment per patient size (includes targeted exams where dose is matched to clinical indication); or iterative reconstruction. COMPARISON: CT HEAD/BRAIN WO CON 04/02/2023 1:52 PM FINDINGS: Brain: No evidence for intracranial hemorrhage, mass lesions or acute stroke. Old tiny right caudate head lacunar infarct image . Old right posterolateral basal ganglia lacunar infarct image . Intracranial vascular calcifications. Cerebral ventricles: No ventriculomegaly. Pituitary gland and sella: Negative Paranasal sinuses: Visualized sinuses are unremarkable. No fluid levels. Mastoid air cells: Visualized mastoid air cells are well aerated. Orbital cavities: Negative. Parotid and submandibular glands: Negative Bones/joints: Unremarkable. No acute fracture. Soft tissues: Unremarkable. Vasculature: Negative. IMPRESSION: 1. No evidence for intracranial hemorrhage, mass lesions or acute stroke. 2. Old tiny right caudate head lacunar infarct image . 3. Old right posterolateral basal ganglia lacunar infarct image . 4. Intracranial vascular calcifications.
[2023-04-26 22:58] VITALS: BP 107/40; PULSE 61; RESP 14; O2SAT 97
[2023-04-26 22:59] VITALS: BP 120/55; PULSE 62; RESP 14; O2SAT 97
[2023-04-26 23:03] LABS: Basophils % 0.6 % (0.1-2.0); Eosinophils # 0.1 K/mm3 (0.0-0.4); Eosinophils % 1.2 % (0.1-12.0); Hematocrit 34.3 % (42.0-52.0); Hemoglobin 10.5 g/dL (14.1-18.0); Lymphocytes # 1.2 K/mm3 (0.7-4.5); Mean Corpuscular HGB Conc 30.7 g/dL (31.8-35.4); Mean Corpuscular Hemoglobin 29.1 pg (27.0-31.2); Mean Corpuscular Volume 94.9 fl (80-94); Mean Platelet Volume 8.6 fl (7.4-10.4); Monocytes # 0.5 K/mm3 (0.1-1.0); Monocytes % 6.4 % (1.7-9.3); Neutrophils # 5.5 K/mm3 (1.8-7.8); Neutrophils % 74.7 % (37.0-80.0); Platelet Count 355 K/mm3 (142-424); Red Blood Count 3.61 M/mm3 (4.60-6.20); Red Cell Distribution Width 19.9 % (11.5-17.5); White Blood Count 7.3 K/mm3 (4.8-10.8)
[2023-04-26 23:04] LABS: Chloride 100 mmol/L (98-107); Potassium 5.3 mmoL/L (3.5-5.1); Sodium 135 mmol/L (136-145)
--- NOTE | 2023-04-26 23:04 | HMH.EDGENADL ---
Discharge Plan Disposition Patient Disposition: Still a Patient Chief Complaint: Nausea/Vomiting/Diarrhea Prescriptions Prescriptions: No Action metformin 1,000 mg tablet 1,000 mg PO BIDWMEAL Qty: 180 0RF tizanidine 2 mg capsule 2 mg PO TIDP PRN (Reason: muscle spasticity) Qty: 90 4RF Rx Instructions: Per pt's , taking a couple times per week tramadol 50 mg tablet 50 mg PO Q8HP PRN (Reason: pain) Qty: 90 3RF atorvastatin 80 mg tablet 80 mg PO DAILY Qty: 30 3RF omeprazole 40 mg capsule,delayed release(DR/EC) 40 mg PO DAILY Trulicity 1.5 mg/0.5 mL pen injector 1.5 mg SQ WEEKLY albuterol sulfate 90 mcg/actuation HFA aerosol inhaler 2 puff inhalation QIDP PRN (Reason: shortness of breath or wheezing) fluticasone propionate 50 mcg/actuation [place],Suspension 1 spray INTRANASAL DAILY Rx Instructions: administer into each nostril bisoprolol fumarate 5 mg tablet 5 mg PO DAILY amiodarone 200 mg tablet 200 mg PO BID clopidogrel 75 mg tablet 75 mg PO DAILY Patient Comments: Pt instructed to stop plavix today for scheduled EGD nitroglycerin 0.4 mg tablet, sublingual 0.4 mg sublingual Q5MINP PRN (Reason: chest pain) Rx Instructions: do not exceed 3 doses per episode mecobalamin (vitamin B12) 1,000 mcg tablet,chewable 1,000 mcg PO DAILY warfarin 2.5 mg tablet 2.5 mg PO DAILY Patient Comments: TAKE 1 TABLET BY MOUTH ONCE DAILY OR DIRECTED bupropion HCl 150 mg tablet sustained-release 12 hr 150 mg PO BID Patient Comments: Take 1 tablet by mouth twice daily insulin glargine [Lantus Solostar U-100 Insulin] 100 unit/mL (3 mL) insulin pen 25 unit SQ HS metolazone 2.5 mg Tablet 5 mg PO DAILY 30 Days Qty: 60 0RF isosorbide mononitrate 60 mg Tablet Extended Release 24 Hr 60 mg PO DAILY 30 Days Qty: 30 0RF [place] 2.5 mg Tablet 2.5 mg PO DAILY 30 Days Qty: 30 0RF hydralazine 25 mg Tablet 25 mg PO TID 30 Days Qty: 90 0RF spironolactone 25 mg tablet 25 mg PO DAILY 30 Days Qty: 30 2RF bumetanide 1 mg tablet 1 mg PO BID 30 Days Qty: 60 5RF Rx Instructions: Take 2 mg in morning and 1 mg in afternoon daily Per pt's , taking 2mg in the morning and 2mg at bedtime Referrals Follow up/Referrals: Mal Barfield DO [Primary Care Provider] - See instructions Clinical Impressions Clinical Impression: Acute renal failure, Syncope, Breath, shortness Instructions Patient Instructions: DI for Diarrhea and Traveler's Diarrhea -- Adult, DI for Diarrhea and Traveler's Diarrhea -- Child, DI for Nausea -- Adult, DI for Nausea -- Child Discharge ED Provider: Giulia [facility] Adult HPI General Chief complaint: Nausea/Vomiting/Diarrhea Stated complaint: syncopal episode Time Seen by Provider: 04/26/23 22:45 History of Present Illness HPI narrative: This patient is a 57-year-old male with extensive past medical history including chronic anticoagulation on Coumadin, CHF with AICD in place, CKD, lymphedema, paroxysmal atrial fibrillation, hypertension, hyperlipidemia, CAD, type 2 diabetes, and chronic leg wounds presenting to the emergency department for evaluation with concern for syncopal episode. Patient states that all day, he had felt short of air. He got up to go to the TV when he suddenly felt lightheaded. The next thing that he remembers is waking up on the floor. According to EMS, they arrived on scene and found the patient sitting upright in no acute distress. He was covered in his own feces in a home that was extremely disheveled. According to what the patient's had told them, she was concerned that the patient had had a stroke because he passed out and then whenever he woke up he seems to have some sort of facial droop. EMS noted that the patient did not seem to have facial droop or other neurologic deficits while en route. Fingerstick blood glucose was in the 150s. At this time, patient states that he feels like he is short of breath but denies any other concerns or complaints at this time. Related Data Home Medications Medication Instructions Recorded Confirmed omeprazole 40 mg capsule,delayed 40 mg PO DAILY Acid reflux 03/21/22 04/25/23 release dulaglutide 1.5 mg/0.5 mL 1.5 mg SQ WEEKLY Diabetes 06/04/22 04/25/23 subcutaneous pen injector (Trulicity) albuterol sulfate 90 mcg/actuation 2 puff inhalation QIDP PRN 06/05/22 04/25/23 aerosol inhaler shortness of breath or wheezing fluticasone propionate 50 1 spray intranasal DAILY Allergy 06/07/22 04/25/23 mcg/actuation nasal Symptoms spray,suspension bisoprolol fumarate 5 mg tablet 5 mg PO DAILY High Blood Pressure 06/17/22 04/25/23 bupropion HCl 150 mg tablet,12 hr 150 mg PO BID mood 01/10/23 04/25/23 sustained-release insulin glargine 100 unit/mL (3 25 unit SQ HS Diabetes 01/10/23 04/25/23 mL) subcutaneous pen (Lantus Solostar U-100 Insulin) amiodarone 200 mg tablet 200 mg PO BID Heart Rhythm 02/10/23 04/25/23 clopidogrel 75 mg tablet 75 mg PO DAILY Blood Thinner 02/10/23 04/25/23 mecobalamin (vitamin B12) 1,000 1,000 mcg PO DAILY Supplement 02/10/23 04/25/23 mcg chewable tablet nitroglycerin 0.4 mg sublingual 0.4 mg sublingual Q5MINP PRN chest 02/10/23 04/25/23 tablet pain warfarin 2.5 mg tablet 2.5 mg PO DAILY 04/19/23 04/25/23 Previous Rx's Medication Instructions Recorded atorvastatin 80 mg tablet 80 mg PO DAILY #30 tabs 04/14/23 bumetanide 1 mg tablet 1 mg PO BID 30 days #60 tabs 04/17/23 hydralazine 25 mg tablet 25 mg PO TID 30 days #90 tabs 04/17/23 isosorbide mononitrate 60 mg 60 mg PO DAILY 30 days #30 tabs 04/17/23 tablet,extended release 24 hr metolazone 2.5 mg tablet 5 mg (2 x 2.5 mg) PO DAILY 30 days 04/17/23 #60 tabs spironolactone 25 mg tablet 25 mg PO DAILY Fluid 30 days #30 04/17/23 tabs vericiguat 2.5 mg tablet ([place]quvo) 2.5 mg PO DAILY 30 days #30 tabs 04/17/23 metformin 1,000 mg tablet 1,000 mg PO BIDWMEAL Diabetes #180 04/25/23 tabs tizanidine 2 mg capsule 2 mg PO TIDP PRN muscle spasticity 04/25/23 #90 caps tramadol 50 mg tablet 50 mg PO Q8HP PRN pain #90 tabs 04/25/23 Allergies Allergy/AdvReac Type Severity Reaction Status Date / Time No Known Allergies Allergy Verified 04/25/23 15:34 [facility] Disclaimer: The information contained in this section may have been updated after the patient was seen, as this information can be updated by other users. Medical History Hyperglycemia due to diabetes mellitus Acute hyperkalemia Cardiac volume overload Acute exacerbation of CHF (congestive heart failure) Lymphedema Globus sensation Dysphagia Esophagitis Acute exacerbation of CHF (congestive heart failure) Chronic kidney disease, stage 3a NYHA class 3 heart failure with reduced ejection fraction PAF (paroxysmal atrial fibrillation) Heart failure with reduced ejection fraction Systolic heart failure Dizziness Dyspnea Typical angina Coronary artery disease GERD (gastroesophageal reflux disease) Smoker Deviated nasal septum Hoarseness Arthritis H/O blood clots History of stroke Diabetes mellitus, type 2 Asthma History of heart attack Hypertension Neuropathy Diabetes Tobacco dependence syndrome HLD (hyperlipidemia) HTN (hypertension) CAD (coronary artery disease) Surgical History S/P CABG x 4 S/P CABG (coronary artery bypass graft) History of heart artery stent Family History Other Cancer Coronary artery disease Diabetes Hypertension Kidney disease Stroke Social History Smoking Status: Former smoker tobacco type: cigarettes packs per day: 1 second hand exposure: Yes alcohol intake: never counseling provided: none substance use type: denies use current occupational status: disabled and other Travel in the last 8 weeks: None household members: family housing: house caffeine: Yes ROS Obtained: Yes All systems reviewed & no additional complaints except as documented Physical Exam General General appearance: alert and obese Comment: Disheveled, covered in feces as he has defecated on himself Head Head exam: atraumatic and normocephalic Eye Eye exam: Present normal appearance, PERRL and EOMI ENT ENT exam: Present normal exam, normal oropharynx, mucous membranes moist and normal external ear exam Neck Neck exam: Present normal inspection, full ROM and trachea midline; Absent tenderness Chest Chest inspection: Present normal inspection and symmetric chest wall rise; Absent tenderness Respiratory Respiratory exam: Present normal lung sounds bilaterally, accessory muscle use and prolonged expiratory phase; Absent wheezes or stridor Cardiovascular Cardiovascular exam: Present regular rate and normal rhythm Abdominal Exam Abdominal exam: Present soft; Absent distention, tenderness or guarding Extremities Exam Extremities exam: Present full ROM, normal capillary refill and edema (Bilateral lower extremity with chronic leg wounds, dressing in place. No obvious purulent drainage or significant surrounding erythema); Absent tenderness Back Exam Back exam: Present normal inspection and full ROM; Absent tenderness Neurological Exam Neurological exam: Present alert, oriented X3, CN II-XII intact and other; Absent motor sensory deficit Expanded Neurological Exam Cranial nerves: Normal: EOM function (II, III, IV, ), facial sensation (V), facial palsy (VII), spinal accessory function (XI) and tongue deviation (XII) Upper motor neuron exam: Normal: barbara neglect Sensory exam upper extremity: Normal: light touch Sensory exam lower extremity: Normal: light touch Coma scale eye opening: Spontaneous Coma scale motor response: Obeys commands Coma scale verbal response: Oriented Coma scale total: 15 Psychiatric Psychiatric exam: Present normal affect and normal mood Skin Skin exam: Present warm and dry Medical Decision Making Medical Records Medical records reviewed: Yes I reviewed the patient's medical records. Teddy Inquiry Pt receiving controlled substance: No Vital Signs: 04/26/23 22:44 Temperature 98.2 F Temperature Source Oral Respiratory Rate 20 Blood Pressure [Right Arm] 120/55 L Blood Pressure Mean [Right Arm] 76 Blood Pressure Source [Right Arm] Automatic Cuff Blood Pressure Position [Right Arm] Sitting 02 Sat by Pulse Oximetry 96 Oxygen Delivery Method Room Air Lab Data Lab results reviewed: Yes I reviewed the patient's lab results. Lab Results 04/26/23 22:45: WBC 7.3, RBC 3.61 L, Hgb 10.5 L, Hct 34.3 L, MCV 94.9 H, MCH 29.1, MCHC 30.7 L, RDW 19.9 H, Plt Count 355, MPV 8.6, Neut % (Auto) 74.7, Lymph % (Auto) 17.0, [place] % (Auto) 6.4, Eos % (Auto) 1.2, Baso % (Auto) 0.6, Neut # (Auto) 5.5, Lymph # (Auto) 1.2, [place] # (Auto) 0.5, Eos # (Auto) 0.1, Baso # (Auto) 0.0, PT 16.9 H, INR 1.61 H, APTT 31.7 H, Sodium 135 L, Potassium 5.3 H, Chloride 100, Carbon Dioxide 17 L, Anion Gap 23.3 H, BUN 109 H*, Creatinine 7.50 H, Estimated Creat Clear 16, Estimated GFR 7 L*, Est GFR ( Amer) 9 L*, Glucose 121 H, Calcium 9.5, Total Bilirubin 1.2, AST 52, ALT 53, Alkaline Phosphatase 272 H, Troponin I 0.04 H, NT-Pro-B Natriuret Pep > 34554 H, Total Protein 7.2, Albumin 3.9, Globulin 3.3 H, Albumin/Globulin Ratio 1.2 04/26/23 22:46: VBG pH 7.32, VBG pCO2 35.9, VBG pO2 76.0 H, VBG HCO3 18.2 L, VBG Total CO2 19.3 L, VBG O2 Saturation 92.8 H, VBG Base Excess -7.9 L, VBG Lactic Acid 6.6 H 04/26/23 22:45 04/26/23 22:45 Orders (Tests/Meds): ORDERS Category Date Time Status CT angio chest PE protocol Stat Cat Scan 04/26/23 22:[address] angio head Stat Cat Scan 04/26/23 22:[address] angio neck Stat Cat Scan 04/26/23 22:[address] head/brain wo con Stat Cat Scan 04/26/23 22:46 Ordered CXR --portable [XR chest portable] Stat Exams 04/26/23 23:20 Ordered Activated Partial Thrombo Time Stat Lab 04/26/23 22:45 Completed Brain Natriuretic Peptide Stat Lab 04/26/23 22:45 Completed Complete Blood Count Auto Diff Stat Lab 04/26/23 22:45 Completed Comprehensive Metabolic Panel Stat Lab 04/26/23 22:45 Completed D-Dimer Stat Lab 04/26/23 22:45 Received Lactate Venous Stat Lab 03/06/24 22:46 Completed Prothrombin Time INR Stat Lab 04/26/23 22:45 Completed Troponin I Q3H Lab 04/27/23 02:00 Ordered Troponin I Q3H Lab 04/27/23 05:00 Ordered Troponin I Stat Lab 04/26/23 22:45 Completed Urinalysis and Microscopic Stat Lab 04/26/23 22:46 Ordered Venous Blood Gas Stat RT 04/26/23 22:46 Completed ECG Data Tracing #1: I reviewed this ECG and interpreted as documented below: Patient with a ventricular rate of 60 bpm. No significant changes from prior EKG. No STEMI criteria. ECG initial impression date: 04/26/23 ECG initial impression time: 23:04 Medical Decision Narrative: In summary, this patient is a 57-year-old male presenting to the Emergency Department for evaluation of shortness of breath and questionable syncopal type episode just prior to arrival. Differential diagnoses considered include but are not limited to ACS, cardiac dysrhythmia, CHF exacerbation, PE, COPD exacerbation. Ruling out the most morbid conditions drove assessment. I reviewed patient's past medical records and noted cardiology evaluations in the past, including recent evaluation yesterday. According to cardiology note, patient has an EF of 20 to 25% with an ICD in place. I also noted recent admission 04/14/2023 through 04/17/2023 for acute on chronic CHF, at which point patient was diuresed with Bumex and was discharged home once he had improvement in labs, edema, and clinical assessment. On exam, the patient does have accessory muscle use with prolonged expiratory phase, but otherwise cardiopulmonary exam is reassuring. He has an NIH stroke scale of 0 as he is completely neurologically intact. Workup included CBC, CMP, troponin, BNP, VBG, CT head without contrast, CT angiogram of the head and neck, and CTA PE protocol. EKG was obtained and does not demonstrate any significant changes from prior EKG. I independently interpreted [] prior to the radiologist read and noted []. Please see their read for final interpretation. Unfortunately, labs were obtained that demonstrated acute renal failure with a creatinine greater than 7. This is up from the patient's baseline of around 3. He also has very mild hyperkalemia without significant EKG changes. He has a lactic acidosis. Given these things, I feel that contrast would not be beneficial to the patient. He is resting comfortably on exam with no focal neurologic deficits and he is satting normally on room air. Given this, decision was made to defer angiograms and instead to obtain a D-dimer. Patient has a BNP greater than 30,000, which could be related to his acute renal failure, however he does have extensive cardiac history including CHF. Given this, fluids were not administered at this time. Will continue to reassess the patient. Patient care signed out to the oncoming provider, Dr. Marques. Critical Care Critical Care Time Critical Care Time: No
[2023-04-26 23:07] LABS: Alanine Aminotransferase 53 U/L (12-78); Albumin Level 3.9 g/dl (3.5-5.0); Albumin/Globulin Ratio 1.2 (1.1-1.8); Alkaline Phosphatase 272 U/L (38-126); Anion Gap 23.3 mEq/L (5-15); Aspartate Amino Transferase 52 U/L (17-59); Bilirubin,Total 1.2 mg/dl (0.2-1.3); Carbon Dioxide 17 mmol/L (22.0-30.0); Estimated Glomerular Filt Rate 7 ml/min (>60); GFR (African American) 9 ML/MIN (>60); Globulin 3.3 g/dL (1.3-3.2); Total Protein,Serum 7.2 g/dl (6.3-8.2)
[2023-04-26 23:08] LABS: Calcium 9.5 mg/dl (8.4-10.2); Glucose 121 mg/dl (74-100)
[2023-04-26 23:10] LABS: Activated Partial Thrombo Time 31.7 seconds (22.8-30.6); INR 1.61 (0.9-1.1); Prothrombin Time 16.9 seconds (10.1-12.5)
[2023-04-26 23:11] LABS: VBG Base Excess -7.9 mmol/L (-2.4-2.3); VBG HCO3 18.2 mmol/L (23-30); VBG Oxygen Saturation 92.8 % (50-70); VBG PCO2 35.9 mmol/L (35-51); VBG PH 7.32 mmol/L (7.31-7.41); VBG Total CO2 19.3 mmol/L (23-27)
[2023-04-26 23:14] LABS: Lactate Venous 6.6 mmol/L (0.4-2.0)
[2023-04-26 23:17] LABS: NT Pro Brain Natriuretic Pep. > 30000 pg/mL (0-125)
[2023-04-26 23:20] LABS: Troponin I 0.04 ng/ml (0.00-0.034)
--- NOTE | 2023-04-26 23:20 | XR_ITS ---
PROCEDURE INFORMATION: Exam: XR Chest Exam date and time: 04/26/2023 11:38 PM Age: 57 years old Clinical indication: Shortness of breath; Additional info: Syncope, SOA TECHNIQUE: Imaging protocol: Radiologic exam of the chest. Views: 1 view. COMPARISON: CR XR CHEST PORTABLE 04/14/2023 6:18 AM FINDINGS: Tubes, catheters and devices: Pacer/AICD electrodes. Lungs: Normal pulmonary vessels. No focal consolidation. Mild perihilar atelectasis/scarring. Pleural spaces: Unremarkable. No pleural effusion. No pneumothorax. Heart/Mediastinum: Mild cardiomegaly. Valvular prosthesis. Atrial appendage clips. Bones/joints: Prior sternotomy. IMPRESSION: No acute cardiopulmonary disease.
--- NOTE | 2023-04-26 23:25 | PC.NURSE ---
Pt arrives via EMS covered in feces. Pt bathed with soap and water, placed in gown. Clothes placed in bag.
[2023-04-26 23:28] LABS: Creatinine Clearance Estimated 16 mL/min (50-200)
[2023-04-26 23:30] LABS: Blood Urea Nitrogen 109 mg/dl (9-20)
[2023-04-26 23:31] VITALS: BP 108/64; PULSE 60; RESP 15; O2SAT 96
[2023-04-26 23:46] LABS: D-Dimer 1.02 ug/mL (0.0-0.5)
--- NOTE | 2023-04-26 23:47 | PC.NURSE ---
Received critical from lab. Patient BUN 109, and creat 7.5. Dr. Marques notified.
--- NOTE | 2023-04-26 23:57 | PC.NURSE ---
in room talking with patient at this time.
[2023-04-27] VITALS (9 sets, daily range): BP systolic 105–124; BP diastolic 38–66; PULSE 60–71; RESP 14–16; TEMP 36.8; O2SAT 95–99
--- NOTE | 2023-04-27 00:02 | PC.NURSE ---
Pt provided urinal aware of UA needed
[2023-04-27] MEDS: LOKELMA 5GM PACKET 10 GM PO (00:21)
[2023-04-27] MEDS: LACTATED RINGERS 1000ML 1,000 ML 999 ML IV (00:21)
--- NOTE | 2023-04-27 00:39 | PC.NURSE ---
called to get patients pacemaker interrogated at this time. Domingo will call back.
--- NOTE | 2023-04-27 00:57 | PC.NURSE ---
Dr Marques wanting pt pacemaker interrogated. Domingo Landers (Solorzano) advised we use pt mamta on phone to transmit to the database due to him being 2 hrs away.
--- NOTE | 2023-04-27 01:11 | PC.NURSE ---
Domingo Landers from [employer] called about interoggation and reports no episodes. Asked to fax or email copy to us for chart.
[2023-04-27 02:09] LABS: Troponin I 0.03 ng/ml (0.00-0.034)
--- NOTE | 2023-04-27 02:18 | PC.NURSE ---
in room talking with patient at this time.
--- NOTE | 2023-04-27 02:49 | PC.NURSE ---
calling [facility] at this time.
[2023-04-27 02:54] LABS: Microscopic, Urine URINE MICROSCOPIC (MICROSCOPIC)
[2023-04-27 02:55] LABS: Appearance,Urine CLEAR (Clear); Blood, Urine Negative (Negative); Glucose,Urine (UA) Negative (Negative); Ketones,Urine TRACE (Negative); Leukocyte Esterase,Urine Negative (Negative); Nitrate,Urine Negative (Negative); PH,Urine 5.5 (5.0-8.5); Protein,Urine 1+ (Negative); Specific Gravity, Urine >= 1.030 (1.005-1.030)
[2023-04-27 02:58] LABS: Bilirubin,Urine 1+ (Negative); Color,Urine Dark Yellow (Yellow)
--- NOTE | 2023-04-27 02:59 | PC.NURSE ---
o/p with nia at this time.
[2023-04-27 03:12] LABS: Reflex Lactic Add Lactic Reflex
[2023-04-27 03:12] LABS: Bacteria,Urine Trace /lpf; Mucus,Urine Trace /lpf; Squamous Epithelial Cell,Urine Occasional #/hpf (0-5); WBC,Urine Occasional #/hpf (0-3); Yeast,Urine 1+ /lpf
--- NOTE | 2023-04-27 03:12 | PC.NURSE ---
Dr. Yonatan Smith accepting ER to ER transfer.
[2023-04-27 03:24] LABS: Lactate Venous 3.4 mmol/L (0.4-2.0)
--- NOTE | 2023-04-27 03:30 | PC.NURSE ---
notified [facility] that pt is ready for transport to [facility]
--- NOTE | 2023-04-27 23:02 | ECG_ITS ---
APPROVED REPORT Exam: Resting ECG HR:60 bpm ECG Measurements Heart Rate 60 AXES TX 145 P 213 QRSd 126 QRS 222 QT 481 T 45 QTc 481 Conclusion SINUS RHYTHM POSSIBLE RIGHT VENTRICULAR HYPERTROPHY [SOME/ALL OF: PROMINENT R IN V1, LATE TRANSITION, RAD, HUSAM, SSS] ANTEROLATERAL MYOCARDIAL INFARCTION , PROBABLY OLD [40+ ms Q WAVE IN I/aVL/V3-V6] ABNORMAL ECG UNCONFIRMED REPORT Electronically signed by : SELINA GALLEGOS, 04/28/2023 05:37:40
== END 2023-04-27 04:20 | disposition critical access hospital (66) ==
PROVIDERS: Emergency Provider Emergency Medicine; PCP Internal Medicine
DX: R06.02 Shortness of breath (principal); R55 Syncope and collapse; N17.9 Acute kidney failure, unspecified; I11.0 Hypertensive heart disease with heart failure; I25.10 Atherosclerotic heart disease of native coronary artery without angina pectoris; I50.9 Heart failure, unspecified; E78.5 Hyperlipidemia, unspecified; E11.9 Type 2 diabetes mellitus without complications; Z79.01 Long term (current) use of anticoagulants; Z79.4 Long term (current) use of insulin; Z79.84 Long term (current) use of oral hypoglycemic drugs; Z95.810 Presence of automatic (implantable) cardiac defibrillator; Z95.5 Presence of coronary angioplasty implant and graft; Z87.891 Personal history of nicotine dependence
CPT/HCPCS: 36415; 51702; 70450; 71045; 80053; 81001; 82803; 83605; 83880; 84484; 85025; 85378; 85610; 85730; 87040; 93005; 96360; 99285

== ENCOUNTER 2023-05-10 15:21 | Outpatient (CLI) | payer MEDICARE, SELFPAY ==
[2023-05-10 15:49] LABS: Basophils % 0.9 % (0.1-2.0); Eosinophils # 0.1 K/mm3 (0.0-0.4); Hematocrit 31.4 % (42.0-52.0); Hemoglobin 9.5 g/dL (14.1-18.0); Lymphocytes # 0.7 K/mm3 (0.7-4.5); Lymphocytes % 14.2 % (10-50); Mean Corpuscular HGB Conc 30.1 g/dL (31.8-35.4); Mean Corpuscular Hemoglobin 29.1 pg (27.0-31.2); Mean Corpuscular Volume 96.8 fl (80-94); Mean Platelet Volume 8.9 fl (7.4-10.4); Monocytes # 0.3 K/mm3 (0.1-1.0); Monocytes % 6.2 % (1.7-9.3); Neutrophils # 3.5 K/mm3 (1.8-7.8); Neutrophils % 75.7 % (37.0-80.0); Platelet Count 273 K/mm3 (142-424); Red Blood Count 3.25 M/mm3 (4.60-6.20); Red Cell Distribution Width 19.6 % (11.5-17.5); White Blood Count 4.6 K/mm3 (4.8-10.8)
[2023-05-10 15:54] LABS: INR 2.48 (0.9-1.1); Prothrombin Time 25.2 seconds (10.1-12.5)
[2023-05-10 16:05] LABS: Chloride 97 mmol/L (98-107); Potassium 3.6 mmoL/L (3.5-5.1); Sodium 134 mmol/L (136-145)
[2023-05-10 16:07] LABS: Alanine Aminotransferase 50 U/L (12-78); Aspartate Amino Transferase 43 U/L (17-59); Estimated Glomerular Filt Rate 14 ml/min (>60); GFR (African American) 17 ML/MIN (>60)
[2023-05-10 16:08] LABS: Albumin Level 3.2 g/dl (3.5-5.0); Albumin/Globulin Ratio 1.2 (1.1-1.8); Alkaline Phosphatase 284 U/L (38-126); Anion Gap 13.6 mEq/L (5-15); Bilirubin,Total 0.7 mg/dl (0.2-1.3); Calcium 8.7 mg/dl (8.4-10.2); Carbon Dioxide 27 mmol/L (22.0-30.0); Creatine Kinase 41 U/L (55-170); Globulin 2.7 g/dL (1.3-3.2); Glucose 396 mg/dl (74-100); Total Protein,Serum 5.9 g/dl (6.3-8.2)
[2023-05-10 16:11] LABS: Alanine Aminotransferase 50 U/L (12-78); Albumin Level 3.3 g/dl (3.5-5.0); Alkaline Phosphatase 280 U/L (38-126); Aspartate Amino Transferase 42 U/L (17-59); Bilirubin,Direct 0.7 mg/dl (0.0-0.4); Bilirubin,Total 0.7 mg/dl (0.2-1.3); Cholesterol 97 mg/dl (140-200); Total Protein,Serum 5.9 g/dl (6.3-8.2); Triglycerides 225 mg/dl (30-150); VLDL Cholesterol 45 mg/dL (0-40)
[2023-05-10 16:12] LABS: Chol/HDL Ratio 3.1 (1-3.5); HDL Cholesterol 31 mg/dl (40-60); Magnesium 1.5 mg/dl (1.6-2.3)
[2023-05-10 16:13] LABS: Blood Urea Nitrogen 101 mg/dl (9-20)
[2023-05-10 16:24] LABS: Direct LDL Cholesterol 42.42 mg/dL (100-129)
[2023-05-10 16:28] LABS: Free T4 (Free Thyroxine) 2.13 ng/dl (0.78-2.19)
[2023-05-10 16:43] LABS: Thyroid Stimulating Hormone 5.56 uIU/mL (0.465-4.68)
== END 2023-05-10 23:59 ==
LOC: LAB 15:22
PROVIDERS: Physician Assistant; PCP Internal Medicine; Visit Provider Physician Assistant
DX: M62.838 Other muscle spasm (principal); G25.3 Myoclonus; R60.0 Localized edema; I25.10 Atherosclerotic heart disease of native coronary artery without angina pectoris; N18.31 Chronic kidney disease, stage 3a; I10 Essential (primary) hypertension; E78.2 Mixed hyperlipidemia; I50.20 Unspecified systolic (congestive) heart failure; I48.0 Paroxysmal atrial fibrillation; F17.200 Nicotine dependence, unspecified, uncomplicated; R06.02 Shortness of breath; N17.9 Acute kidney failure, unspecified
CPT/HCPCS: 36415; 80053; 80061; 80076; 82550; 83735; 84439; 84443; 85025; 85610

== ENCOUNTER 2023-06-19 12:09 | Outpatient (CLI) | payer MEDICARE, SELFPAY ==
[2023-06-19 12:36] LABS: Hematocrit 33.1 % (42.0-52.0); Hemoglobin 9.9 g/dL (14.1-18.0); Mean Corpuscular HGB Conc 29.9 g/dL (31.8-35.4); Mean Corpuscular Hemoglobin 27.9 pg (27.0-31.2); Mean Corpuscular Volume 93.5 fl (80-94); Platelet Count 335 K/mm3 (142-424); Red Blood Count 3.54 M/mm3 (4.60-6.20); Red Cell Distribution Width 18.3 % (11.5-17.5); White Blood Count 7.9 K/mm3 (4.8-10.8)
[2023-06-19 13:16] LABS: Anion Gap 13.2 mEq/L (5-15); Blood Urea Nitrogen 36 mg/dl (9-20); Carbon Dioxide 27 mmol/L (22.0-30.0); Chloride 104 mmol/L (98-107); Estimated Glomerular Filt Rate 34 ml/min (>60); GFR (African American) 41 ML/MIN (>60); Potassium 4.2 mmoL/L (3.5-5.1); Sodium 140 mmol/L (136-145)
[2023-06-19 13:17] LABS: Albumin Level 3.6 g/dl (3.5-5.0); Anion Gap 11.1 mEq/L (5-15); Blood Urea Nitrogen 35 mg/dl (9-20); Calcium 9.6 mg/dl (8.4-10.2); Carbon Dioxide 28 mmol/L (22.0-30.0); Chloride 104 mmol/L (98-107); Estimated Glomerular Filt Rate 34 ml/min (>60); GFR (African American) 41 ML/MIN (>60); Glucose 123 mg/dl (74-100); Phosphorous 4.3 mg/dl (2.5-4.5); Potassium 4.1 mmoL/L (3.5-5.1); Sodium 139 mmol/L (136-145)
[2023-06-19 13:33] LABS: 25-OH Vitamin D, Total 33.7 ng/mL (30-100)
[2023-06-19 13:39] LABS: Microscopic, Urine URINE MICROSCOPIC (MICROSCOPIC)
[2023-06-19 14:59] LABS: Appearance,Urine CLEAR (Clear); Bilirubin,Urine Negative (Negative); Blood, Urine Negative (Negative); Color,Urine YELLOW (Yellow); Glucose,Urine (UA) 3+ (Negative); Ketones,Urine Negative (Negative); Leukocyte Esterase,Urine Negative (Negative); Nitrate,Urine Negative (Negative); Protein,Urine Negative (Negative); Specific Gravity, Urine 1.015 (1.005-1.030); Urobilinogen,Urine 0.2 EU/dl (0.2)
[2023-06-19 16:31] LABS: Creatinine,Urine Random 12 mg/dL (Not Estab.)
[2023-06-20 08:29] LABS: Prostate Specific Ag 0.9 ng/mL (0.0-4.0)
== END 2023-06-19 23:59 | disposition home or self-care (01) ==
LOC: LAB 12:10
PROVIDERS: Internal Medicine Nephrology; PCP Internal Medicine; Visit Provider Urology
DX: R33.9 Retention of urine, unspecified (principal); N40.0 Benign prostatic hyperplasia without lower urinary tract symptoms; N18.32 Chronic kidney disease, stage 3b
CPT/HCPCS: 36415; 80051; 80069; 81001; 82306; 82565; 82570; 83970; 84153; 84154; 84156; 84520; 85014; 85018; 85048; 85049

== ENCOUNTER 2023-06-22 10:02 | Outpatient (CLI) | payer MEDICARE, SELFPAY ==
--- NOTE | 2023-06-22 10:10 | US_ITS ---
FINAL REPORT TECHNIQUE: Ultrasound images of the kidneys and bladder were obtained. CLINICAL HISTORY: PVR FINDINGS: The right kidney measures 10.0 cm in length. It is normal in echogenicity. There is no hydronephrosis. The left kidney measures 11.1 cm in length. It is normal in echogenicity. There is no hydronephrosis. There is a small nonobstructing left renal stone measuring 3 mm. There is an incidental small amount of ascites. IMPRESSION: Small nonobstructing left renal stone. Incidental ascites. Reviewed, Interpreted and Dictated by Renuka Rondon MD Transcribed by Maryellen Minor Authenticated and [facility]
== END 2023-06-22 23:59 | disposition home or self-care (01) ==
LOC: RAD 10:02
PROVIDERS: PCP Internal Medicine; Visit Provider Urology
DX: R18.8 Other ascites (principal); R33.9 Retention of urine, unspecified
CPT/HCPCS: 76770

== ENCOUNTER 2023-07-05 18:29 | Outpatient (CLI) | payer MEDICARE, SELFPAY ==
[2023-07-05 19:56] LABS: Basophils # 0.1 K/mm3 (0-0.2); Eosinophils # 0.2 K/mm3 (0.0-0.4); Eosinophils % 3.9 % (0.1-12.0); Hematocrit 32.3 % (42.0-52.0); Hemoglobin 9.8 g/dL (14.1-18.0); Lymphocytes # 0.9 K/mm3 (0.7-4.5); Lymphocytes % 15.8 % (10-50); Mean Corpuscular HGB Conc 30.5 g/dL (31.8-35.4); Mean Corpuscular Hemoglobin 27.7 pg (27.0-31.2); Mean Corpuscular Volume 91.1 fl (80-94); Mean Platelet Volume 8.2 fl (7.4-10.4); Monocytes # 0.5 K/mm3 (0.1-1.0); Monocytes % 7.8 % (1.7-9.3); Neutrophils # 4.1 K/mm3 (1.8-7.8); Neutrophils % 71.5 % (37.0-80.0); Platelet Count 309 K/mm3 (142-424); Red Blood Count 3.55 M/mm3 (4.60-6.20); Red Cell Distribution Width 17.7 % (11.5-17.5); White Blood Count 5.8 K/mm3 (4.8-10.8)
[2023-07-05 20:10] LABS: Alanine Aminotransferase 22 U/L (12-78); Albumin Level 3.5 g/dl (3.5-5.0); Albumin/Globulin Ratio 1.1 (1.1-1.8); Alkaline Phosphatase 318 U/L (38-126); Aspartate Amino Transferase 43 U/L (17-59); Bilirubin,Total 1.1 mg/dl (0.2-1.3); Blood Urea Nitrogen 33 mg/dl (9-20); Calcium 9.2 mg/dl (8.4-10.2); Carbon Dioxide 29 mmol/L (22.0-30.0); Chloride 99 mmol/L (98-107); Estimated Glomerular Filt Rate 32 ml/min (>60); GFR (African American) 39 ML/MIN (>60); Globulin 3.2 g/dL (1.3-3.2); Glucose 169 mg/dl (74-100); Sodium 141 mmol/L (136-145); Total Protein,Serum 6.7 g/dl (6.3-8.2)
[2023-07-05 21:05] LABS: Creatinine,Urine Random 29 mg/dL (Not Estab.)
[2023-07-05 21:07] LABS: Microalbumin/Creatinine Ratio 32.7
== END 2023-07-05 23:59 | disposition home or self-care (01) ==
PROVIDERS: PCP Family Medicine; Visit Provider Family Medicine
DX: I10 Essential (primary) hypertension (principal); E11.42 Type 2 diabetes mellitus with diabetic polyneuropathy; Z79.899 Other long term (current) drug therapy
CPT/HCPCS: 80053; 82043; 82570; 85025

== ENCOUNTER 2023-08-07 18:00 | Outpatient (CLI) | payer MEDICARE, SELFPAY ==
[2023-08-07 19:21] LABS: Basophils # 0.1 K/mm3 (0-0.2); Basophils % 0.8 % (0.1-2.0); Eosinophils # 0.2 K/mm3 (0.0-0.4); Eosinophils % 3.7 % (0.1-12.0); Hematocrit 33.3 % (42.0-52.0); Hemoglobin 10.2 g/dL (14.1-18.0); Lymphocytes # 0.9 K/mm3 (0.7-4.5); Lymphocytes % 15.4 % (10-50); Mean Corpuscular HGB Conc 30.6 g/dL (31.8-35.4); Mean Corpuscular Hemoglobin 27.7 pg (27.0-31.2); Mean Corpuscular Volume 90.5 fl (80-94); Mean Platelet Volume 9.6 fl (7.4-10.4); Monocytes # 0.6 K/mm3 (0.1-1.0); Monocytes % 9.9 % (1.7-9.3); Neutrophils # 3.9 K/mm3 (1.8-7.8); Neutrophils % 70.1 % (37.0-80.0); Platelet Count 308 K/mm3 (142-424); Red Blood Count 3.68 M/mm3 (4.60-6.20); Red Cell Distribution Width 17.1 % (11.5-17.5); White Blood Count 5.6 K/mm3 (4.8-10.8)
[2023-08-07 19:30] LABS: Alanine Aminotransferase 13 U/L (12-78); Albumin Level 3.7 g/dl (3.5-5.0); Albumin/Globulin Ratio 1.1 (1.1-1.8); Alkaline Phosphatase 296 U/L (38-126); Anion Gap 16.5 mEq/L (5-15); Aspartate Amino Transferase 30 U/L (17-59); Bilirubin,Total 1.4 mg/dl (0.2-1.3); Blood Urea Nitrogen 38 mg/dl (9-20); Calcium 9.5 mg/dl (8.4-10.2); Carbon Dioxide 27 mmol/L (22.0-30.0); Chloride 100 mmol/L (98-107); Estimated Glomerular Filt Rate 29 ml/min (>60); GFR (African American) 35 ML/MIN (>60); Globulin 3.3 g/dL (1.3-3.2); Glucose 126 mg/dl (74-100); Potassium 4.5 mmoL/L (3.5-5.1); Sodium 139 mmol/L (136-145)
== END 2023-08-07 23:59 | disposition home or self-care (01) ==
LOC: LAB.DROPOF 08-08 08:48
PROVIDERS: PCP Family Medicine; Visit Provider Family Medicine
DX: I10 Essential (primary) hypertension (principal); E11.43 Type 2 diabetes mellitus with diabetic autonomic (poly)neuropathy; K31.84 Gastroparesis; Z79.4 Long term (current) use of insulin; Z79.84 Long term (current) use of oral hypoglycemic drugs; Z87.891 Personal history of nicotine dependence
CPT/HCPCS: 80053; 85025

== ENCOUNTER 2023-09-04 10:12 | Outpatient (CLI) | payer MEDICARE, SELFPAY ==
[2023-09-04 18:45] LABS: Basophils # 0.1 K/mm3 (0-0.2); Eosinophils # 0.3 K/mm3 (0.0-0.4); Eosinophils % 4.5 % (0.1-12.0); Hematocrit 33.3 % (42.0-52.0); Hemoglobin 9.8 g/dL (14.1-18.0); Lymphocytes % 18.4 % (10-50); Mean Corpuscular HGB Conc 29.6 g/dL (31.8-35.4); Mean Corpuscular Hemoglobin 26.1 pg (27.0-31.2); Mean Corpuscular Volume 88.3 fl (80-94); Mean Platelet Volume 8.1 fl (7.4-10.4); Monocytes # 0.6 K/mm3 (0.1-1.0); Neutrophils # 3.6 K/mm3 (1.8-7.8); Platelet Count 280 K/mm3 (142-424); Red Blood Count 3.77 M/mm3 (4.60-6.20); White Blood Count 5.5 K/mm3 (4.8-10.8)
[2023-09-04 19:22] LABS: Chloride 104 mmol/L (98-107); Sodium 140 mmol/L (136-145)
[2023-09-04 19:23] LABS: Potassium 3.5 mmoL/L (3.5-5.1)
[2023-09-04 19:25] LABS: Alanine Aminotransferase 12 U/L (12-78); Albumin Level 3.5 g/dl (3.5-5.0); Alkaline Phosphatase 281 U/L (38-126); Anion Gap 11.5 mEq/L (5-15); Aspartate Amino Transferase 23 U/L (17-59); Bilirubin,Total 1.1 mg/dl (0.2-1.3); Blood Urea Nitrogen 21 mg/dl (9-20); Carbon Dioxide 28 mmol/L (22.0-30.0); Estimated Glomerular Filt Rate 39 ml/min (>60); GFR (African American) 47 ML/MIN (>60); Globulin 3.5 g/dL (1.3-3.2)
[2023-09-04 19:26] LABS: Calcium 8.9 mg/dl (8.4-10.2); Glucose 197 mg/dl (74-100)
[2023-09-04 19:31] LABS: Hemoglobin A1C 7.7 % (4.0-6.0)
== END 2023-09-04 23:59 | disposition home or self-care (01) ==
LOC: LAB.DROPOF 09-05 10:13
PROVIDERS: PCP Family Medicine; Visit Provider Family Medicine
DX: E11.9 Type 2 diabetes mellitus without complications (principal); I10 Essential (primary) hypertension
CPT/HCPCS: 80053; 83036; 85025

== ENCOUNTER 2023-10-02 11:10 | Outpatient (CLI) | payer MEDICARE, SELFPAY ==
[2023-10-02 21:26] LABS: Basophils % 0.8 % (0.1-2.0); Eosinophils # 0.2 K/mm3 (0.0-0.4); Eosinophils % 4.8 % (0.1-12.0); Hematocrit 35.7 % (42.0-52.0); Hemoglobin 10.3 g/dL (14.1-18.0); Lymphocytes # 0.9 K/mm3 (0.7-4.5); Lymphocytes % 19.3 % (10-50); Mean Corpuscular HGB Conc 28.9 g/dL (31.8-35.4); Mean Corpuscular Hemoglobin 26.3 pg (27.0-31.2); Mean Corpuscular Volume 91.2 fl (80-94); Mean Platelet Volume 8.9 fl (7.4-10.4); Monocytes # 0.4 K/mm3 (0.1-1.0); Monocytes % 8.5 % (1.7-9.3); Neutrophils # 3.2 K/mm3 (1.8-7.8); Neutrophils % 66.6 % (37.0-80.0); Platelet Count 283 K/mm3 (142-424); Red Blood Count 3.92 M/mm3 (4.60-6.20); Red Cell Distribution Width 17.8 % (11.5-17.5); White Blood Count 4.7 K/mm3 (4.8-10.8)
[2023-10-02 21:48] LABS: Alanine Aminotransferase 10 U/L (12-78); Albumin Level 3.4 g/dl (3.5-5.0); Albumin/Globulin Ratio 0.9 (1.1-1.8); Alkaline Phosphatase 237 U/L (38-126); Anion Gap 10.1 mEq/L (5-15); Aspartate Amino Transferase 23 U/L (17-59); Bilirubin,Total 1.6 mg/dl (0.2-1.3); Blood Urea Nitrogen 31 mg/dl (9-20); Calcium 9.5 mg/dl (8.4-10.2); Carbon Dioxide 30 mmol/L (22.0-30.0); Chloride 103 mmol/L (98-107); Chol/HDL Ratio 3.1 (1-3.5); Cholesterol 78 mg/dl (140-200); Estimated Glomerular Filt Rate 36 ml/min (>60); GFR (African American) 44 ML/MIN (>60); Globulin 3.6 g/dL (1.3-3.2); Glucose 171 mg/dl (74-100); HDL Cholesterol 25 mg/dl (40-60); Potassium 4.1 mmoL/L (3.5-5.1); Sodium 139 mmol/L (136-145); Triglycerides 110 mg/dl (30-150); VLDL Cholesterol 22 mg/dL (0-40)
[2023-10-02 22:19] LABS: Direct LDL Cholesterol < 30.00 mg/dL (100-129)
[2023-10-02 22:21] LABS: Hemoglobin A1C 7.9 % (4.0-6.0)
[2023-10-02 22:30] LABS: Iron 46 ug/dL (49-181)
[2023-10-02 22:40] LABS: Total Iron Binding Capacity 387 ug/dL (261-462)
== END 2023-10-02 23:59 | disposition home or self-care (01) ==
LOC: LAB.DROPOF 10-03 15:09
PROVIDERS: PCP Family Medicine; Visit Provider Family Medicine
DX: I42.9 Cardiomyopathy, unspecified (principal); E11.9 Type 2 diabetes mellitus without complications; I10 Essential (primary) hypertension; Z79.84 Long term (current) use of oral hypoglycemic drugs; Z87.891 Personal history of nicotine dependence
CPT/HCPCS: 80053; 80061; 83036; 83540; 83550; 85025

== ENCOUNTER 2023-11-03 14:31 | Inpatient (IN) | payer MEDICARE, SELFPAY ==
[2023-11-03 14:32] VITALS: BP 138/78; PULSE 60; RESP 18; TEMP 36.5; O2SAT 98; BMI 32.5
--- NOTE | 2023-11-03 14:38 | ECG_ITS ---
APPROVED REPORT Exam: Resting ECG HR:60 bpm ECG Measurements Heart Rate 60 AXES DE 270 P 29 QRSd 170 QRS 177 QT 511 T 94 QTc 511 Conclusion ELECTRONIC ATRIAL PACEMAKER INTRAVENTRICULAR CONDUCTION DELAY [130+ ms QRS DURATION] ABNORMAL ECG UNCONFIRMED REPORT Electronically signed by : MATTIE FRIAS, 11/03/2023 17:03:54
[2023-11-03 14:48] VITALS: BMI 32.5
--- NOTE | 2023-11-03 14:52 | XR_ITS ---
FINAL REPORT CLINICAL HISTORY: SHORTNESS OF BREATH COMPARISON: 04/26/2023 FINDINGS: A single portable view of the chest was obtained. A left subclavian ICD is present. The heart is enlarged. Pulmonary vascularity is within normal limits. The patient is status post median sternotomy. No acute pulmonary abnormality is identified. The bony thorax is intact. IMPRESSION: No active cardiopulmonary disease. Reviewed, Interpreted and Dictated by Jorge Ann III, MD Transcribed by Debra Brar Authenticated and . [facility]
[2023-11-03 15:00] VITALS: BP 146/84; PULSE 60; RESP 19; O2SAT 98
[2023-11-03 15:05] LABS: Basophils # 0.1 K/mm3 (0-0.2); Basophils % 1.1 % (0.1-2.0); Eosinophils # 0.2 K/mm3 (0.0-0.4); Eosinophils % 4.2 % (0.1-12.0); Hematocrit 34.3 % (42.0-52.0); Hemoglobin 9.6 g/dL (14.1-18.0); Lymphocytes # 0.8 K/mm3 (0.7-4.5); Lymphocytes % 16.1 % (10-50); Mean Corpuscular HGB Conc 28.1 g/dL (31.8-35.4); Mean Corpuscular Hemoglobin 26.1 pg (27.0-31.2); Mean Corpuscular Volume 92.6 fl (80-94); Mean Platelet Volume 8.9 fl (7.4-10.4); Monocytes # 0.5 K/mm3 (0.1-1.0); Neutrophils # 3.5 K/mm3 (1.8-7.8); Neutrophils % 69.5 % (37.0-80.0); Platelet Count 264 K/mm3 (142-424); Red Cell Distribution Width 17.8 % (11.5-17.5); White Blood Count 5.1 K/mm3 (4.8-10.8)
[2023-11-03 15:06] LABS: Chloride 103 mmol/L (98-107); Sodium 141 mmol/L (136-145)
[2023-11-03 15:09] LABS: Alanine Aminotransferase 18 U/L (12-78); Alkaline Phosphatase 203 U/L (38-126); Anion Gap 7.8 mEq/L (5-15); Aspartate Amino Transferase 24 U/L (17-59); Bilirubin,Total 1.3 mg/dl (0.2-1.3); Blood Urea Nitrogen 13 mg/dl (9-20); Calcium 8.3 mg/dl (8.4-10.2); Carbon Dioxide 33 mmol/L (22.0-30.0); Creatinine Clearance Estimated 62 mL/min (50-200); Estimated Glomerular Filt Rate 39 ml/min (>60); GFR (African American) 47 ML/MIN (>60); Glucose 214 mg/dl (74-100); Total Protein,Serum 6.4 g/dl (6.3-8.2)
[2023-11-03 15:10] LABS: Albumin/Globulin Ratio 0.9 (1.1-1.8); Globulin 3.4 g/dL (1.3-3.2); Potassium 2.8 mmoL/L (3.5-5.1)
[2023-11-03 15:19] LABS: NT Pro Brain Natriuretic Pep. 7580 pg/mL (0-125)
--- NOTE | 2023-11-03 15:23 | PC.NURSE ---
DR LIZARRAGA AT BEDSIDE
[2023-11-03 15:24] LABS: Troponin I 0.01 ng/ml (0.00-0.034)
[2023-11-03] MEDS: POTASSIUM CHLORIDE 20MEQ TAB 60 MEQ PO (15:27)
[2023-11-03] MEDS: KCl 10mEq/100ml 100 ML 100 MEQ IV ×3 (15:30→18:12)
--- NOTE | 2023-11-03 15:32 | PC.NURSE ---
on phone with hospitalist
--- NOTE | 2023-11-03 15:35 | HMH.EDGENADL ---
Discharge Plan Disposition Patient Disposition: Admitted Prescriptions Prescriptions: No Action carvedilol 12.5 mg tablet 12.5 mg PO BID Patient Comments: TAKE ONE TABLET BY MOUTH TWICE DAILY --TAKE WITH FOOD-- tamsulosin 0.4 mg capsule 0.4 mg PO DAILY Qty: 30 3RF albuterol sulfate 90 mcg/actuation HFA aerosol inhaler 2 puff inhalation QIDP PRN (Reason: shortness of breath or wheezing) Qty: 8.5 10RF budesonide-formoterol [Symbicort] 160-4.5 mcg/actuation HFA aerosol inhaler 1 inh inhalation BID Qty: 10.2 10RF (DME) Dexcom G6 Transmitter Device See Rx Instructions .Route Qty: 1 0RF Rx Instructions: As directed omeprazole 40 mg capsule,delayed release(DR/EC) 40 mg PO DAILY Qty: 90 2RF tramadol 50 mg tablet 50 mg PO TID PRN (Reason: pain) Qty: 90 2RF (DME) Dexcom G7 Sensor Device See Rx Instructions .Route Qty: 1 0RF Rx Instructions: As directed mupirocin 2 % ointment 1 applic topical TID Qty: 22 10RF insulin glargine [Lantus Solostar U-100 Insulin] 100 unit/mL (3 mL) insulin pen 25 unit SQ HS Qty: 15 10RF bumetanide 2 mg tablet See Rx Instructions PO DAILY Qty: 120 2RF Rx Instructions: two tablets orally daily; (DME) hydrocolloid dressing [DuoDERM CGF Border Dressing] 4 X 4 bandage See Rx Instructions .Route Qty: 5 10RF Rx Instructions: As directed oxycodone-acetaminophen [Percocet] 5-325 mg tablet 1 tab PO TID PRN (Reason: pain) Qty: 45 0RF (DME) Dexcom G6 Dental Office Manager Misc See Rx Instructions .Route Qty: 1 0RF Rx Instructions: As directed (DME) Dexcom G6 Sensor Device See Rx Instructions .Route Qty: 3 12RF Rx Instructions: As directed Eliquis 5 mg tablet 5 mg PO Q12H Qty: 60 12RF empagliflozin 10 mg tablet 10 mg PO DAILY Qty: 90 3RF (DME) OneTouch Ultra Test Strip See Rx Instructions .Route Qty: 100 0RF Rx Instructions: As directed or bid magnesium oxide 400 mg (241.3 mg magnesium) tablet 400 mg PO DAILY Qty: 30 0RF atorvastatin [Lipitor] 80 mg tablet 80 mg PO DAILY Qty: 30 5RF fluticasone propionate 50 mcg/actuation [place],Suspension 1 spray INTRANASAL DAILY Rx Instructions: administer into each nostril clopidogrel 75 mg tablet 75 mg PO DAILY Patient Comments: Pt instructed to stop plavix today for scheduled EGD nitroglycerin 0.4 mg tablet, sublingual 0.4 mg sublingual Q5MINP PRN (Reason: chest pain) Rx Instructions: do not exceed 3 doses per episode mecobalamin (vitamin B12) 1,000 mcg tablet,chewable 1,000 mcg PO DAILY amiodarone 200 mg tablet 100 mg PO DAILY bupropion HCl 150 mg tablet sustained-release 12 hr 150 mg PO DAILY Patient Comments: Take 1 tablet by mouth twice daily [place]vo 2.5 mg Tablet 2.5 mg PO DAILY 30 Days Qty: 30 0RF Referrals Follow up/Referrals: Darron Franz MD [Primary Care Provider] - See instructions Clinical Impressions Clinical Impression: Anasarca, Volume overload, Acute hypokalemia, CKD (chronic kidney disease) Print Language Print Language: Kazakh Discharge ED Provider: Luciano Patel Adult HPI General Chief complaint: Shortness of Breath/Dyspnea Stated complaint: retaining water-sent by Osei Olsen Time Seen by Provider: 11/03/23 15:21 Mode of Arrival: Wheelchair Source of Information: Patient Limitations: No Limitations Description of Symptoms (Recalled from ER Triage Doc. by RN): PT C/O GENERALIZED PAIN ALL OVER. REPORTS HOLDING FLUID PT AT PCP EARLIER THIS WEEK AND DECLINED FURTHER WORK-UP. PT REPORTS SHORTNESS OF BREATH, SWELLING OF LEGS AND ABDOMEN. History of Present Illness HPI narrative: Patient is a 58-year-old male presenting today with whole body wall edema and holding fluid. Has a known history of heart failure and is on diuretics and takes Bumex 2 mg twice a day and is followed Dr. Jolly. His dry weight is 195 which his who takes his weight daily says was 2 weeks ago. He has been on this regimen for diuresis since May of this year. She states that this has been working well up until about 2 weeks ago. He is 25 pounds up from his dry weight measuring 220 pounds this morning. Patient states that he has pain in his lower back and his abdominal wall in his legs all of which are locations of significant body wall edema. States that his diuresis has not been working and he is holding fluid. Related Data Home Medications ?Medication ?Instructions ?Recorded ?Confirmed fluticasone propionate 50 1 spray intranasal DAILY Allergy 06/07/22 10/30/23 mcg/actuation nasal Symptoms spray,suspension clopidogrel 75 mg tablet 75 mg PO DAILY Blood Thinner 02/10/23 10/30/23 mecobalamin (vitamin B12) 1,000 1,000 mcg PO DAILY Supplement 02/10/23 10/30/23 mcg chewable tablet nitroglycerin 0.4 mg sublingual 0.4 mg sublingual Q5MINP PRN chest 02/10/23 10/30/23 tablet pain amiodarone 200 mg tablet 100 mg PO DAILY Heart Rhythm 05/10/23 10/30/23 bupropion HCl 150 mg tablet,12 hr 150 mg PO DAILY mood 05/10/23 10/30/23 sustained-release carvedilol 12.5 mg tablet 12.5 mg PO BID 05/10/23 10/30/23 Previous Rx's ?Medication ?Instructions ?Recorded vericiguat 2.5 mg tablet (Verquvo) 2.5 mg PO DAILY 30 days #30 tabs 04/17/23 blood sugar diagnostic (OneTouch #100 ea 05/09/23 Ultra Test strips) magnesium oxide 400 mg (241.3 mg 400 mg PO DAILY #30 tabs 05/12/23 magnesium) tablet tamsulosin 0.4 mg capsule 0.4 mg PO DAILY #30 caps 06/26/23 albuterol sulfate 90 mcg/actuation 2 puff inhalation QIDP PRN 07/05/23 aerosol inhaler shortness of breath or wheezing #8.5 grams blood-glucose transmitter (Dexcom #1 ea 07/05/23 G6 Transmitter device) budesonide-formoterol HFA 160 1 inh inhalation BID #10.2 grams 07/05/23 mcg-4.5 mcg/actuation aerosol inhaler (Symbicort) blood-glucose sensor (Dexcom G7 #1 ea 08/07/23 Sensor device) tramadol 50 mg tablet 50 mg PO TID PRN pain #90 tabs 08/07/23 omeprazole 40 mg capsule,delayed 40 mg PO DAILY Acid reflux #90 caps 09/04/23 release bumetanide 2 mg tablet See Rx Instructions PO DAILY #120 10/02/23 tabs hydrocolloid dressing 4 X 4 #5 ea 10/02/23 (DuoDERM CGF Adhesive Border Dressing) insulin glargine 100 unit/mL (3 25 unit (0.25 mL) SQ HS Diabetes 10/02/23 mL) subcutaneous pen (Lantus #15 mL Solostar U-100 Insulin) mupirocin 2 % topical ointment 1 applic topical TID #22 grams 10/02/23 atorvastatin 80 mg tablet (Lipitor) 80 mg PO DAILY #30 tabs 10/20/23 apixaban 5 mg tablet (Eliquis) 5 mg PO Q12H Blood Thinner #60 tabs 10/30/23 blood-glucose meter,continuous #1 ea 10/30/23 (Dexcom G6 Dental Office Manager) blood-glucose sensor (Dexcom G6 #3 ea 10/30/23 Sensor device) empagliflozin 10 mg tablet 10 mg PO DAILY #90 tabs 10/30/23 oxycodone-acetaminophen 5 mg-325 1 tab PO TID PRN pain #45 tabs 10/30/23 mg tablet (Percocet) Allergies Allergy/AdvReac Type Severity Reaction Status Date / Time No Known Allergies Allergy Verified 10/30/23 10:01 [facility] Disclaimer: The information contained in this section may have been updated after the patient was seen, as this information can be updated by other users. Medical History Neuropathy Hyperglycemia due to diabetes mellitus Acute hyperkalemia Cardiac volume overload Acute exacerbation of CHF (congestive heart failure) Lymphedema Patient is following with the lymphedema clinic. His lower extremities look very poor at this point. He has erythema lesions crusting eschar etc. I tried to call the wound care center yesterday. Will try to get a hold of them today to discuss his care in depth. Globus sensation Dysphagia Patient is having feelings of dysphagia both with liquids and solids. This seems to happen with just about everything he eats. Will do an MRI of the neck and see if there is anything that shows. A swallow study would be worthwhile to evaluate for function but lets see first whether there are any anatomic issues that need to be addressed. Esophagitis Acute exacerbation of CHF (congestive heart failure) Chronic kidney disease, stage 3a NYHA class 3 heart failure with reduced ejection fraction PAF (paroxysmal atrial fibrillation) Patient is following with cardiology. Heart failure with reduced ejection fraction Systolic heart failure Dizziness Dyspnea Typical angina Coronary artery disease GERD (gastroesophageal reflux disease) Smoker Deviated nasal septum Hoarseness Arthritis H/O blood clots History of stroke Diabetes mellitus, type 2 Asthma History of heart attack Hypertension Diabetes Tobacco dependence syndrome HLD (hyperlipidemia) HTN (hypertension) CAD (coronary artery disease) Surgical History S/P CABG x 4 S/P CABG (coronary artery bypass graft) Cardiology is following. History of heart artery stent Family History Other Cancer Coronary artery disease Diabetes Hypertension Kidney disease Stroke Social History Smoking Status: Former smoker tobacco type: cigarettes packs per day: 1 second hand exposure: Yes alcohol intake: never counseling provided: none substance use type: denies use current occupational status: disabled and other Travel in the last 8 weeks: None household members: family housing: house caffeine: Yes ROS Obtained: Yes All systems reviewed & no additional complaints except as documented Physical Exam General General appearance: alert Respiratory Respiratory exam: Present normal lung sounds bilaterally and wheezes; Absent respiratory distress Cardiovascular Cardiovascular exam: Present regular rate and other (Diffuse body wall edema including in the abdominal wall in the presacral region in the bilateral lower extremities); Absent normal rhythm Neurological Exam Neurological exam: Present alert and oriented X3 Medical Decision Making Teddy Inquiry Pt receiving controlled substance: No Vital Signs: 11/03/23 14:32 11/03/23 15:00 Temperature 97.7 F Temperature Source Oral Pulse Rate 60 Pulse Rate [Apical] 60 Respiratory Rate 18 19 Blood Pressure 146/84 H Blood Pressure [Right Arm] 138/78 Blood Pressure Mean 103 Blood Pressure Mean [Right Arm] 98 Blood Pressure Source [Right Arm] Automatic Cuff Blood Pressure Position [Right Arm] Sitting 02 Sat by Pulse Oximetry 98 98 Oxygen Delivery Method Room Air Room Air Lab Data Lab results reviewed: Yes I reviewed the patient's lab results. Lab Results 11/03/23 14:43: WBC 5.1, RBC 3.70 L, Hgb 9.6 L, Hct 34.3 L, MCV 92.6, MCH 26.1 L, MCHC 28.1 L, RDW 17.8 H, Plt Count 264, MPV 8.9, Neut % (Auto) 69.5, Lymph % (Auto) 16.1, [place] % (Auto) 9.0, Eos % (Auto) 4.2, Baso % (Auto) 1.1, Neut # (Auto) 3.5, Lymph # (Auto) 0.8, [place] # (Auto) 0.5, Eos # (Auto) 0.2, Baso # (Auto) 0.1, Sodium 141, Potassium 2.8 L*, Chloride 103, Carbon Dioxide 33 H, Anion Gap 7.8, BUN 13, Creatinine 1.80 H, Estimated Creat Clear 62, Estimated GFR 39 L, Est GFR ( Amer) 47 L, Glucose 214 H, Calcium 8.3 L, Total Bilirubin 1.3, AST 24, ALT 18, Alkaline Phosphatase 203 H, Troponin I 0.01, NT-Pro-B Natriuret Pep 7580 H, Total Protein 6.4, Albumin 3.0 L, Globulin 3.4 H, Albumin/Globulin Ratio 0.9 L 11/03/23 14:43 11/03/23 14:43 Orders (Tests/Meds): ED MEDICATIONS Generic Name Dose Route Start Last Admin Trade Name Freq PRN Reason Stop Dose Admin Bumetanide 4 mg 11/03/23 15:31 Bumetanide 1mg/4ml Vial IV 11/03/23 15:32 ONCE ONE Potassium Chloride/Water 100 mls @ 100 mls/hr 11/03/23 15:30 11/03/23 15:30 Potassium Chloride 10meq/100ml Ivpb IV 11/03/23 18:29 100 mls/hr Q1H KHURRAM Administration Sodium Chloride 10 ml 11/03/23 14:52 Sodium Chloride 0.9% 10ml Flush Syringe IV 12/03/23 14:51 NEEDED PRN Maintain IV Site Discontinued Medications Generic Name Dose Route Start Last Admin Trade Name Freq PRN Reason Stop Dose Admin Potassium Chloride 60 meq 11/03/23 15:22 11/03/23 15:27 Potassium Chloride 20meq Tab PO 11/03/23 15:23 60 meq ONCE ONE Administration ORDERS Category Date Time Status XR chest portable Stat Exams 11/03/23 14:52 Taken Complete Blood Count Auto Diff Stat Lab 11/03/23 14:43 Completed Comprehensive Metabolic Panel Stat Lab 11/03/23 14:43 Completed NT Pro Brain Natriuretic Pep. Stat Lab 11/03/23 14:43 Completed Trop I [Troponin I] Stat Lab 11/03/23 14:43 Completed Troponin I Q3H Lab 11/03/23 18:00 Ordered Troponin I Q3H Lab 11/03/23 21:00 Ordered Medical Decision Narrative: 58-year-old male presenting today with significant whole body wall edema and anasarca and heart failure exacerbation. He has renal insufficiency has been on high doses of Bumex without any significant improvement over the last several weeks and has had 25 pound weight gain over that time period. Does not have significant respiratory involvement chest x-ray performed to person interpreted which shows cardiomegaly and evidence of an AICD but no significant pulmonary edema. The majority of his fluid retention and is in his soft tissues. Does have some mild hypoalbuminemia which is contributing from a third spacing standpoint. He has been on 2 mg twice daily of Bumex will give him initial bolus of 4 mg and see if he has a response to this may require a Bumex infusion. Additionally with his renal insufficiency and his hypokalemia this could worsen both of those and he will require inpatient admission to follow both his renal function as well as his potassium. Oral and IV potassium have been ordered and I spoke with Dr. Niko Mccarthy who agreed to admit this patient for further evaluation and management. Critical Care Critical Care Time Critical Care Time: No
--- NOTE | 2023-11-03 15:38 | EXP.HP ---
History of Present Illness *Admission Date: 11/03/23 *Reason for visit:: edema, wt gain *History of present illness: Mr. Zayas is a 58-year-old male with history of CABG, heart failure with reduced ejection fraction, CKD, diabetes. Presents with significant fluid overload and swelling in his abdomen. reports that he has gained approximately 25 pounds over the past month and she has been unable to get the fluid off using their home regimen. He has had swelling in his thighs, lower back and abdomen. Reports some shortness of breath but is stable on room air. Dry weight reportedly under 95 pounds but patient's weight is up to 220 pounds this morning. No nausea or vomiting. No fever or chills. No chest pain. Having 300 to 600 cc urine output per time when he takes his Bumex at home. She was concern for volume overload. BNP elevated at 7500 on arrival. Medicine consulted for admission to assist with diuresis and further workup. On arrival to the floor, patient appears uncomfortable with significantly distended abdomen. Having some tenderness with abdomen. Denies any nausea or vomiting. Reports he has not had a bowel movement in a week. Responding well to IV Bumex. Has put out 800 cc since admission. [facility] Disclaimer: The information contained in this section may have been updated after the patient was seen, as this information can be updated by other users. Medical History Neuropathy Hyperglycemia due to diabetes mellitus Acute hyperkalemia Cardiac volume overload Acute exacerbation of CHF (congestive heart failure) Lymphedema Globus sensation Dysphagia Esophagitis Acute exacerbation of CHF (congestive heart failure) Chronic kidney disease, stage 3a NYHA class 3 heart failure with reduced ejection fraction PAF (paroxysmal atrial fibrillation) Heart failure with reduced ejection fraction Systolic heart failure Dizziness Dyspnea Typical angina Coronary artery disease GERD (gastroesophageal reflux disease) Smoker Deviated nasal septum Hoarseness Arthritis H/O blood clots History of stroke Diabetes mellitus, type 2 Asthma History of heart attack Hypertension Diabetes Tobacco dependence syndrome HLD (hyperlipidemia) HTN (hypertension) CAD (coronary artery disease) Surgical History S/P CABG x 4 S/P CABG (coronary artery bypass graft) History of heart artery stent Family History Other Cancer Coronary artery disease Diabetes Hypertension Kidney disease Stroke Social History Smoking Status: Former smoker tobacco type: cigarettes packs per day: 1 second hand exposure: Yes alcohol intake: never counseling provided: none substance use type: denies use current occupational status: disabled and other Travel in the last 8 weeks: None household members: family housing: house caffeine: Yes Review of Systems Review of Systems Review of systems (narrative): 14 point review of systems performed, pertinent positives and negatives as per HPI Meds Home Medications and Allergies Home Medications ?Medication ?Instructions ?Recorded ?Confirmed ?Type fluticasone propionate 50 1 spray intranasal DAILY Allergy 06/07/22 11/03/23 History mcg/actuation nasal Symptoms spray,suspension clopidogrel 75 mg tablet 75 mg PO DAILY Blood Thinner 02/10/23 11/03/23 History mecobalamin (vitamin B12) 1,000 1,000 mcg PO DAILY Supplement 02/10/23 11/03/23 History mcg chewable tablet nitroglycerin 0.4 mg sublingual 0.4 mg sublingual Q5MINP PRN chest 02/10/23 11/03/23 History tablet pain vericiguat 2.5 mg tablet (Verquvo) 2.5 mg PO DAILY 30 days #30 tabs 04/17/23 11/03/23 Rx blood sugar diagnostic (OneTouch #100 ea 05/09/23 11/03/23 Rx Ultra Test strips) bupropion HCl 150 mg tablet,12 hr 150 mg PO DAILY mood 05/10/23 11/03/23 History sustained-release carvedilol 12.5 mg tablet 12.5 mg PO BID 05/10/23 11/03/23 History magnesium oxide 400 mg (241.3 mg 400 mg PO DAILY #30 tabs 05/12/23 11/03/23 Rx magnesium) tablet tamsulosin 0.4 mg capsule 0.4 mg PO DAILY #30 caps 06/26/23 11/03/23 Rx albuterol sulfate 90 mcg/actuation 2 puff inhalation QIDP PRN 07/05/23 11/03/23 Rx aerosol inhaler shortness of breath or wheezing #8.5 grams blood-glucose transmitter (Dexcom #1 ea 07/05/23 11/03/23 Rx G6 Transmitter device) budesonide-formoterol HFA 160 1 inh inhalation BID #10.2 grams 07/05/23 11/03/23 Rx mcg-4.5 mcg/actuation aerosol inhaler (Symbicort) blood-glucose sensor (Dexcom G7 #1 ea 08/07/23 11/03/23 Rx Sensor device) tramadol 50 mg tablet 50 mg PO TID PRN pain #90 tabs 08/07/23 11/03/23 Rx omeprazole 40 mg capsule,delayed 40 mg PO DAILY Acid reflux #90 caps 09/04/23 11/03/23 Rx release bumetanide 2 mg tablet See Rx Instructions PO DAILY #120 10/02/23 11/03/23 Rx tabs hydrocolloid dressing 4 X 4 #5 ea 10/02/23 11/03/23 Rx (DuoDERM CGF Adhesive Border Dressing) insulin glargine 100 unit/mL (3 25 unit (0.25 mL) SQ HS Diabetes 10/02/23 11/03/23 Rx mL) subcutaneous pen (Lantus #15 mL Solostar U-100 Insulin) mupirocin 2 % topical ointment 1 applic topical TID #22 grams 10/02/23 11/03/23 Rx atorvastatin 80 mg tablet (Lipitor) 80 mg PO DAILY #30 tabs 10/20/23 11/03/23 Rx apixaban 5 mg tablet (Eliquis) 5 mg PO Q12H Blood Thinner #60 tabs 10/30/23 11/03/23 Rx blood-glucose meter,continuous #1 ea 10/30/23 11/03/23 Rx (Dexcom G6 Production Line Mechanic) blood-glucose sensor (Dexcom G6 #3 ea 10/30/23 11/03/23 Rx Sensor device) empagliflozin 10 mg tablet 10 mg PO DAILY #90 tabs 10/30/23 11/03/23 Rx oxycodone-acetaminophen 5 mg-325 1 tab PO TID PRN pain #45 tabs 10/30/23 11/03/23 Rx mg tablet (Percocet) coenzyme Q10 100 mg capsule 100 mg PO DAILY 11/03/23 11/03/23 History (CoQ-10) enalapril maleate 10 mg tablet 25 mg PO DAILY 11/03/23 11/03/23 History spironolactone 25 mg tablet 25 mg PO DAILY 11/03/23 11/03/23 History New Prescriptions to Start Prescriptions: Allergies Allergy/AdvReac Type Severity Reaction Status Date / Time No Known Allergies Allergy Verified 10/30/23 10:01 Exam Data for Last 24 hours Vital signs and Labs for Last 24 Hours: Temp Pulse Resp BP Pulse Ox O2 Del Method 97.7 F 60 19 146/84 H 98 Room Air 11/03/23 14:32 11/03/23 15:00 11/03/23 15:00 11/03/23 15:00 11/03/23 15:00 11/03/23 15:00 Laboratory Results - last 24 hr 11/03/23 14:43: WBC 5.1, RBC 3.70 L, Hgb 9.6 L, Hct 34.3 L, MCV 92.6, MCH 26.1 L, MCHC 28.1 L, RDW 17.8 H, Plt Count 264, MPV 8.9, Neut % (Auto) 69.5, Lymph % (Auto) 16.1, [place] % (Auto) 9.0, Eos % (Auto) 4.2, Baso % (Auto) 1.1, Neut # (Auto) 3.5, Lymph # (Auto) 0.8, [place] # (Auto) 0.5, Eos # (Auto) 0.2, Baso # (Auto) 0.1, Sodium 141, Potassium 2.8 L*, Chloride 103, Carbon Dioxide 33 H, Anion Gap 7.8, BUN 13, Creatinine 1.80 H, Estimated Creat Clear 62, Estimated GFR 39 L, Est GFR ( Amer) 47 L, Glucose 214 H, Calcium 8.3 L, Total Bilirubin 1.3, AST 24, ALT 18, Alkaline Phosphatase 203 H, Troponin I 0.01, NT-Pro-B Natriuret Pep 7580 H, Total Protein 6.4, Albumin 3.0 L, Globulin 3.4 H, Albumin/Globulin Ratio 0.9 L I & O for Last 24 hours: Intake & Output 10/31/23 11/01/23 11/02/23 11/03/23 23:59 23:59 23:59 23:59 Weight 99.79 kg Constitutional Constitutional: mild distress, obese, chronically ill appearing, disheveled and cooperative *Routine HEENT Exam Head: Present normocephalic and atraumatic Eye: Present EOMI and PERRL ENT: Present mucous membranes moist *Routine Neck Exam Neck: Present supple; Absent JVD Routine Chest/Breast/Axilla Exam Chest wall: Absent tenderness Comments: Healed midline scar *Routine Respiratory Exam Respiratory: Present crackles (In bases) and normal respiratory effort; Absent accessory muscle use, respiratory distress, rhonchi or wheezes *Routine Cardiovascular Exam Cardiovascular: Present RRR and murmur *Routine Abdominal Exam Abdominal: Present soft, normoactive bowel sounds and distended; Absent tenderness Comments: Edematous abdominal wall *Routine Rectal Exam Rectal:: deferred *Routine Genitalia Exam Genitalia:: normal male Comment:: edematous scrotum *Routine Extremities Exam Extremities: Present edema (2+ to thighs) and pallor; Absent cyanosis or clubbing Comments: Venous stasis changes of bilateral lower extremities, bandages on shins due to skin breakdown, no weeping or warmth *Routine Skin Exam Skin: Present intact and pallor; Absent cyanosis or erythema *Routine Neurological Exam Neurological: Present alert, oriented X3, CN II-XII intact and normal speech; Absent sensory deficit or altered mental status Routine Psychiatric Exam Psychiatric: Present normal affect and normal thought process; Absent suicidal ideation or homicidal ideation Assessment and Plan *Assessment and plan (1) Acute exacerbation of CHF (congestive heart failure): Status: Acute Category: Medical Code(s): I50.9 - Heart failure, unspecified (2) NYHA class 3 heart failure with reduced ejection fraction: Status: Acute Category: Medical Code(s): I50.20 - Unspecified systolic (congestive) heart failure (3) Chronic kidney disease, stage 3a: Status: Acute Category: Medical Code(s): N18.31 - Chronic kidney disease, stage 3a (4) S/P CABG (coronary artery bypass graft): Problem Comment: Cardiology is following. Status: Chronic Category: Surgical Code(s): Z95.1 - Presence of aortocoronary bypass graft (5) PAF (paroxysmal atrial fibrillation): Problem Comment: Patient is following with cardiology. Status: Acute Category: Medical Code(s): I48.0 - Paroxysmal atrial fibrillation (6) CAD (coronary artery disease): Status: Acute Qualifiers: Coronary Disease-Associated Artery/Lesion type: [place] artery [place] vs. transplanted heart: [place] heart Associated angina: without angina Qualified Code(s): I25.10 - Atherosclerotic heart disease of [place] coronary artery without angina pectoris Category: Medical Code(s): I25.10 - Atherosclerotic heart disease of [place] coronary artery without angina pectoris (7) GERD (gastroesophageal reflux disease): Status: Inactive Category: Medical Code(s): K21.9 - Gastro-esophageal reflux disease without esophagitis (8) Tobacco dependence syndrome: Status: Acute Category: Medical Code(s): F17.200 - Nicotine dependence, unspecified, uncomplicated (9) HLD (hyperlipidemia): Status: Acute Qualifiers: Hyperlipidemia type: mixed hyperlipidemia Qualified Code(s): E78.2 - Mixed hyperlipidemia Category: Medical Code(s): E78.5 - Hyperlipidemia, unspecified (10) HTN (hypertension): 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 reports about a 25 pound weight gain. Found to have acute exacerbation of his chronic CHF. Discussed case with ER, request admission for diuresis. I agreed to admit for further management. Concern for abdominal distention. Will obtain CT of abdomen. Continue IV Bumex 4 mg twice daily. If no meaningful response by morning, will initiate Bumex drip. Patient declined [place] at this time. Strict I's and O's. Necessitating inpatient management. Problems addressed as follows: Acute on chronic HFrCHF NYHA class III heart failure History of CABG x 4 Paroxysmal A-fib Hyperlipidemia -Review of chart shows echo obtained in March with EF 40%. -Continue Bumex 4 mg IV twice daily. -800 cc since admission. -Continue all 12.5 g daily, Plavix 75 mL daily empagliflozin 10 mg daily, enalapril 25 mg daily, spironolactone 25 mg daily, and verquvo 2.5 mg daily -Continue to monitor electrolytes and kidney function closely for disturbances and need for replacement along with toxicity from diuretics. Repeat BMP and magnesium ordered for 10 PM this evening. -AICD in place, monitor on continuous telemetry. -Potassium 2.8, creatinine 1.8 which is his baseline. BUN 13. -Repeat CBC, CMP, magnesium ordered for the morning. -Supplemental oxygen as needed, goal sats greater 90%. currently on RA CKD III -Kidney function normal with creatinine 1.8, BUN 13. Monitoring every 12 hours with diuresis. Constipation: - Reports he has not pooped in over a week. Will initiate docusate/senna twice daily scheduled. MiraLAX 17 g x 1 now. Will consider enema in the morning if no bowel movement. -Will obtain CT abdomen and pelvis to evaluate for ascites and level of constipation given report of no bowel movement in a week and significant abdominal distention on exam Type 2 diabetes -Insulin-dependent. A1c earlier this month 7.9. Continue glargine 15 units nightly, decreased to avoid hypoglycemia. Continue sliding scale insulin with fingersticks ACHS. Continued home Wellbutrin for mood Full code Cardiac diet Apixaban 5 mg twice daily
--- NOTE | 2023-11-03 15:38 | PC.NURSE ---
[facility] NOTIFIED OF ADMISSION
--- NOTE | 2023-11-03 15:44 | PC.NURSE ---
PT DECLINES KARIMI AT THIS TIME
--- NOTE | 2023-11-03 15:50 | PC.NURSE ---
REPORT CALLED TO ZAHIRA KOHLI
[2023-11-03 15:51] VITALS: BP 133/76; PULSE 60; RESP 18; TEMP 36.6; O2SAT 97
[2023-11-03] MEDS: BUMETANIDE 1MG/4ML VIAL 4 MG IV ×2 (16:08→23:59)
[2023-11-03 16:55] VITALS: BP 147/81; PULSE 60; RESP 18; TEMP 36.7; O2SAT 97; BMI 32.1
--- NOTE | 2023-11-03 17:32 | CT_ITS ---
PROCEDURE INFORMATION: Exam: CT Abdomen And Pelvis Without Contrast Exam date and time: 11/03/2023 5:59 PM Age: 58 years old Clinical indication: Other: Eval liver; Additional info: Eval liver and ascites TECHNIQUE: Imaging protocol: Computed tomography of the abdomen and pelvis without contrast. Radiation optimization: All CT scans at this facility use at least one of these dose optimization techniques: automated exposure control; mA and/or kV adjustment per patient size (includes targeted exams where dose is matched to clinical indication); or iterative reconstruction. COMPARISON: CR HIPPELBI XR hip BI w PEL1V 04/04/2017 1:48 PM FINDINGS: Liver: Liver appears slightly small in size with suggestion of mild left lobe hypertrophy and slight nodular contour, raising suspicion for cirrhosis. No focal hepatic abnormality. Gallbladder and biliary ducts: Normal. No calcified stones. No ductal dilation. Pancreas: Normal. No ductal dilation. Spleen: Normal. No splenomegaly. Adrenal glands: Normal. No mass. Kidneys and ureters: Normal. No hydronephrosis. Stomach and bowel: Unremarkable. No obstruction. No mucosal thickening. Appendix: No evidence of appendicitis. Intraperitoneal space: Large volume ascites throughout the abdomen and pelvis. No free air. Vasculature: Moderate atherosclerotic calcification throughout the aorta and its branches. No evidence of aneurysm. Lymph nodes: Unremarkable. No enlarged lymph nodes. Urinary bladder: Unremarkable as visualized. Reproductive: Unremarkable as visualized. Bones/joints: Moderate degenerative disc bulge and uncovertebral spurring at the lumbosacral junction. No vertebral body compression or acute fracture. Soft tissues: Significant diffuse body wall edema. IMPRESSION: Slightly abnormal appearance of the liver raising concern for cirrhosis. Findings of anasarca including ascites and diffuse body wall as described
--- NOTE | 2023-11-03 17:51 | PC.WOUNDNOTE ---
ulceration to bilateral lower legs
--- NOTE | 2023-11-03 18:03 | PC.NURSE ---
pt arrived to the floor around 165. vss. pt has a pacemaker in place. pt has multiple ulcerations bilaterally on both lower extremities. 2+ pitting edema noted to both thighs. is at bedside. urine output of 800 noted in the ER after being given bumex. call light within reach. no complaints at this time.
[2023-11-03] MEDS: APIXABAN 5MG TABLET 5 MG PO (18:11)
[2023-11-03] MEDS: POLYETHYLENE GLYCOL 3350 17 GM PACKET PO (18:12)
[2023-11-03 19:13] LABS: Troponin I 0.01 ng/ml (0.00-0.034)
[2023-11-03 19:39] VITALS: BP 125/65; PULSE 60; RESP 18; TEMP 37.3; O2SAT 97
[2023-11-03 20:00] VITALS: PULSE 60
[2023-11-03 20:19] LABS: POC Glucose,Bedside 154 (70-110)
[2023-11-03] MEDS: INSULIN GLARGINE 100 UNITS/ML 3ML FLEXPEN 15 UNIT SQ (21:03)
[2023-11-03] MEDS: humaLOG 100 UNITS/ML 10ML VIAL (SSI) SQ (21:03)
[2023-11-03] MEDS: PANTOPRAZOLE 40MG TABLET 40 MG PO (21:04)
[2023-11-03] MEDS: CARVEDILOL 12.5MG TABLET 12.5 MG PO (21:04)
[2023-11-03] MEDS: SENNOSIDES 8.6MG/DOCUSATE 50MG TABLET 1 TAB PO (21:04)
[2023-11-03] MEDS: OXYCODONE 5MG W/APAP 325MG TABLET 1 EACH PO (21:25)
[2023-11-03 21:34] LABS: Chloride 105 mmol/L (98-107); Potassium 3.1 mmoL/L (3.5-5.1); Sodium 140 mmol/L (136-145)
[2023-11-03 21:37] LABS: Anion Gap 6.1 mEq/L (5-15); Blood Urea Nitrogen 14 mg/dl (9-20); Calcium 8.5 mg/dl (8.4-10.2); Carbon Dioxide 32 mmol/L (22.0-30.0); Creatinine Clearance Estimated 61 mL/min (50-200); Estimated Glomerular Filt Rate 39 ml/min (>60); GFR (African American) 47 ML/MIN (>60); Glucose 167 mg/dl (74-100)
[2023-11-03 21:52] LABS: Troponin I < 0.01 ng/ml (0.00-0.034)
[2023-11-04] VITALS (7 sets, daily range): BP systolic 116–149; BP diastolic 67–77; PULSE 60–61; RESP 17–20; TEMP 36.4–37.2; O2SAT 95–99; BMI 32.5
--- NOTE | 2023-11-04 00:15 | PC.NURSE ---
Confirmed Bumex order [id number] with Lily Pineda, states to give dose.
[2023-11-04] MEDS: APIXABAN 5MG TABLET 5 MG PO ×2 (05:32→20:58)
--- NOTE | 2023-11-04 06:14 | PC.NURSE ---
Alert and oriented. Patient requested bilateral legs be wrapped due to ulcerations, wrapped twice this shift. Pt has complained of pain 1 time, treated per apr. Rested intermittently. Room air. No bowel movement this shift. Call light in reach.
[2023-11-04 08:28] LABS: Alanine Aminotransferase 14 U/L (12-78); Albumin Level 3.1 g/dl (3.5-5.0); Albumin/Globulin Ratio 0.9 (1.1-1.8); Alkaline Phosphatase 240 U/L (38-126); Anion Gap 5.8 mEq/L (5-15); Aspartate Amino Transferase 29 U/L (17-59); Bilirubin,Total 1.2 mg/dl (0.2-1.3); Blood Urea Nitrogen 16 mg/dl (9-20); Calcium 8.8 mg/dl (8.4-10.2); Carbon Dioxide 33 mmol/L (22.0-30.0); Chloride 104 mmol/L (98-107); Creatinine Clearance Estimated 61 mL/min (50-200); Estimated Glomerular Filt Rate 39 ml/min (>60); GFR (African American) 47 ML/MIN (>60); Globulin 3.6 g/dL (1.3-3.2); Glucose 105 mg/dl (74-100); Magnesium 2.1 mg/dl (1.6-2.3); Sodium 140 mmol/L (136-145); Total Protein,Serum 6.7 g/dl (6.3-8.2)
[2023-11-04 08:41] LABS: Potassium 2.8 mmoL/L (3.5-5.1)
[2023-11-04 08:56] LABS: Basophils # 0.1 K/mm3 (0-0.2); Basophils % 1.4 % (0.1-2.0); Eosinophils # 0.2 K/mm3 (0.0-0.4); Eosinophils % 4.7 % (0.1-12.0); Hematocrit 33.7 % (42.0-52.0); Hemoglobin 9.7 g/dL (14.1-18.0); Lymphocytes # 0.9 K/mm3 (0.7-4.5); Lymphocytes % 17.9 % (10-50); Mean Corpuscular HGB Conc 28.8 g/dL (31.8-35.4); Mean Corpuscular Volume 90.2 fl (80-94); Mean Platelet Volume 8.5 fl (7.4-10.4); Monocytes # 0.4 K/mm3 (0.1-1.0); Monocytes % 8.8 % (1.7-9.3); Neutrophils # 3.4 K/mm3 (1.8-7.8); Neutrophils % 67.1 % (37.0-80.0); Platelet Count 249 K/mm3 (142-424); Red Blood Count 3.73 M/mm3 (4.60-6.20); Red Cell Distribution Width 17.9 % (11.5-17.5)
[2023-11-04] MEDS: TAMSULOSIN 0.4MG CAPSULE 0.4 MG PO (09:12)
[2023-11-04] MEDS: CLOPIDOGREL 75MG TAB 75 MG PO (09:12)
[2023-11-04] MEDS: buPROPion HCl SR 150MG TAB 150 MG PO (09:12)
[2023-11-04] MEDS: LISINOPRIL 20MG TABLET 50 MG PO (09:12)
[2023-11-04] MEDS: VERICIGUAT 2.5 MG PO (09:12)
[2023-11-04] MEDS: SENNOSIDES 8.6MG/DOCUSATE 50MG TABLET 1 TAB PO ×2 (09:12→20:58)
[2023-11-04] MEDS: SPIRONOLACTONE 25MG TABLET 25 MG PO (09:12)
[2023-11-04] MEDS: EMPAGLIFLOZIN 10MG TABLET 10 MG PO (09:12)
[2023-11-04] MEDS: CARVEDILOL 12.5MG TABLET 12.5 MG PO ×2 (09:12→20:58)
[2023-11-04] MEDS: BUMETANIDE 1MG/4ML VIAL 3 MG IV ×2 (09:13→16:10)
[2023-11-04] MEDS: humaLOG 100 UNITS/ML 10ML VIAL (SSI) SQ ×2 (10:53→21:01)
[2023-11-04 10:57] LABS: POC Glucose,Bedside 192 (70-110)
[2023-11-04] MEDS: POTASSIUM CHLORIDE 20MEQ TAB 40 MEQ PO ×2 (12:14→20:59)
--- NOTE | 2023-11-04 13:13 | P.PN_ITS ---
Subjective *Date: 11/04/23 *Time: 13:17 Interval history: Diuresing well. -2.5 L by morning. Stable on room air. No fever. Still has significant edema. Medical Exam Vital signs and Labs for Last 24 Hours: Vital Signs Temp Pulse Pulse Resp BP BP Pulse Ox 11/04/23 12:00 97.9 F 61 20 123/67 97 11/04/23 10:59 11/04/23 09:00 11/04/23 08:00 60 11/04/23 08:00 11/04/23 08:00 97.6 F 60 20 116/70 99 11/04/23 07:00 11/04/23 05:00 11/04/23 04:00 60 11/04/23 03:56 97.7 F 60 18 149/75 H 95 11/04/23 02:54 11/04/23 01:00 11/04/23 00:00 60 11/04/23 00:00 98.9 F 60 18 141/72 H 97 11/03/23 23:00 11/03/23 21:00 11/03/23 20:00 11/03/23 20:00 60 11/03/23 19:39 99.1 F 60 18 125/65 97 11/03/23 18:48 11/03/23 17:35 11/03/23 17:00 11/03/23 16:55 98.1 F 60 18 147/81 H 97 11/03/23 15:51 97.9 F 60 18 133/76 11/03/23 15:00 60 19 146/84 H 98 11/03/23 14:32 97.7 F 60 18 138/78 98 O2 Del Method 11/04/23 12:00 Room Air 11/04/23 10:59 Room Air 11/04/23 09:00 Room Air 11/04/23 08:00 11/04/23 08:00 Room Air 11/04/23 08:00 11/04/23 07:00 Room Air 11/04/23 05:00 Room Air 11/04/23 04:00 11/04/23 03:56 Room Air 11/04/23 02:54 Room Air 11/04/23 01:00 Room Air 11/04/23 00:00 11/04/23 00:00 Room Air 11/03/23 23:00 Room Air 11/03/23 21:00 Room Air 11/03/23 20:00 Room Air 11/03/23 20:00 11/03/23 19:39 Room Air 11/03/23 18:48 Room Air 11/03/23 17:35 Room Air 11/03/23 17:00 Room Air 11/03/23 16:55 Room Air 11/03/23 15:51 Room Air 11/03/23 15:00 Room Air 11/03/23 14:32 Room Air Intake and Output 11/03/23 11/04/23 11/04/23 23:59 07:59 15:59 Intake Total 300 / 780 480 / 780 Output Total 1999 855 / 1380 525 / 1380 Balance -1999 / 1700 -555 / -600 -45 / -600 Intake: Intake, Oral Amount 300 / 780 480 / 780 Output: Output, Urine Amount 1999 855 / 1380 525 / 1380 Other: Number of Unmeasured Voids 0 0 Weight 98.685 kg 99.536 kg Patient Weight 11/04/23 23:59 Weight 99.536 kg Laboratory Results - last 24 hr 11/03/23 14:43: WBC 5.1, RBC 3.70 L, Hgb 9.6 L, Hct 34.3 L, MCV 92.6, MCH 26.1 L , MCHC 28.1 L, RDW 17.8 H, Plt Count 264, MPV 8.9, Neut % (Auto) 69.5, Lymph % (Auto) 16.1, [place] % (Auto) 9.0, Eos % (Auto) 4.2, Baso % (Auto) 1.1, Neut # (Auto) 3.5, Lymph # (Auto) 0.8, [place] # (Auto) 0.5, Eos # (Auto) 0.2, Baso # (Auto) 0.1, Sodium 141, Potassium 2.8 L*, Chloride 103, Carbon Dioxide 33 H, Anion Gap 7.8, BUN 13, Creatinine 1.80 H, Estimated Creat Clear 62, Estimated GFR 39 L, Est GFR ( Amer) 47 L, Glucose 214 H, Calcium 8.3 L, Total Bilirubin 1.3, AST 24, ALT 18, Alkaline Phosphatase 203 H, Troponin I 0.01, NT-Pro-B Natriuret Pep 7580 H, Total Protein 6.4, Albumin 3.0 L, Globulin 3.4 H, Albumin/Globulin Ratio 0.9 L 11/03/23 18:05: Troponin I 0.01 11/03/23 20:10: POC Glucose 154 H 11/03/23 21:22: Sodium 140, Potassium 3.1 L, Chloride 105, Carbon Dioxide 32 H, Anion Gap 6.1, BUN 14, Creatinine 1.80 H, Estimated Creat Clear 61, Estimated GFR 39 L, Est GFR ( Amer) 47 L, Glucose 167 H D, Calcium 8.5, Magnesium 2.0, Troponin I < 0.01 11/04/23 06:39: WBC 5.0, RBC 3.73 L, Hgb 9.7 L, Hct 33.7 L, MCV 90.2, MCH 26.0 L , MCHC 28.8 L, RDW 17.9 H, Plt Count 249, MPV 8.5, Neut % (Auto) 67.1, Lymph % (Auto) 17.9, [place] % (Auto) 8.8, Eos % (Auto) 4.7, Baso % (Auto) 1.4, Neut # (Auto) 3.4, Lymph # (Auto) 0.9, [place] # (Auto) 0.4, Eos # (Auto) 0.2, Baso # (Auto) 0.1, Sodium 140, Potassium 2.8 L*, Chloride 104, Carbon Dioxide 33 H, Anion Gap 5.8, BUN 16, Creatinine 1.80 H, Estimated Creat Clear 61, Estimated GFR 39 L, Est GFR ( Amer) 47 L, Glucose 105 H D, Calcium 8.8, Magnesium 2.1, Total Bilirubin 1.2, AST 29, ALT 14, Alkaline Phosphatase 240 H, Total Protein 6.7, Albumin 3.1 L, Globulin 3.6 H, Albumin/Globulin Ratio 0.9 L 11/04/23 10:50: POC Glucose 192 H I & O for Labs for Last 24 Hours: Intake & Output 11/01/23 11/02/23 11/03/23 11/04/23 23:59 23:59 23:59 23:59 Intake Total 780 / 780 Output Total 1999 1380 / 1380 Balance -2000 / -1700 -600 / -600 Weight 98.685 kg 99.536 kg Constitutional: Present no acute distress and chronically ill appearing Head: Present atraumatic and normocephalic ENT: Present normal exam Neck: Present normal inspection Respiratory: Present crackles (minor in bases) and normal respiratory effort; Absent rhonchi or wheezes Cardiac: Present Reg Rate and Rhythm GI: Present soft and normal bowel sounds; Absent distention or tenderness Extremities: Present normal inspection, full ROM and edema (3+ to abdominal wall) Skin: Present erythema; Absent intact Comment:: Wounds present on legs, decreased weeping. Improving erythema. Neuro: Present Grossly Intact, alert, awake, oriented x 3 and moves all extremities Assessment and Plan *Assessment and plan (1) Acute exacerbation of CHF (congestive heart failure): Status: Acute Category: Medical Code(s): I50.9 - Heart failure, unspecified (2) NYHA class 3 heart failure with reduced ejection fraction: Status: Acute Category: Medical Code(s): I50.20 - Unspecified systolic (congestive) heart failure (3) Chronic kidney disease, stage 3a: Status: Acute Category: Medical Code(s): N18.31 - Chronic kidney disease, stage 3a (4) S/P CABG (coronary artery bypass graft): Problem Comment: Cardiology is following. Status: Chronic Category: Surgical Code(s): Z95.1 - Presence of aortocoronary bypass graft (5) PAF (paroxysmal atrial fibrillation): Problem Comment: Patient is following with cardiology. Status: Acute Category: Medical Code(s): I48.0 - Paroxysmal atrial fibrillation (6) CAD (coronary artery disease): Status: Acute Qualifiers: Coronary Disease-Associated Artery/Lesion type: [place] artery [place] vs. transplanted heart: [place] heart Associated angina: without angina Qualified Code(s): I25.10 - Atherosclerotic heart disease of [place] coronary artery without angina pectoris Category: Medical Code(s): I25.10 - Atherosclerotic heart disease of [place] coronary artery without angina pectoris (7) GERD (gastroesophageal reflux disease): Status: Inactive Category: Medical Code(s): K21.9 - Gastro-esophageal reflux disease without esophagitis (8) Tobacco dependence syndrome: Status: Acute Category: Medical Code(s): F17.200 - Nicotine dependence, unspecified, uncomplicated (9) HLD (hyperlipidemia): Status: Acute Qualifiers: Hyperlipidemia type: mixed hyperlipidemia Qualified Code(s): E78.2 - Mixed hyperlipidemia Category: Medical Code(s): E78.5 - Hyperlipidemia, unspecified (10) HTN (hypertension): 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 continuous churn buttermaker insulin use: without jail use Diabetes mellitus complication status: with other specified complication Qualified Code(s): E11.69 - Type 2 diabetes mellitus with other specified complication Category: Medical Code(s): E11.9 - Type 2 diabetes mellitus without complications Plan 58-year-old status post CABG x4 who presented to the ER because of worsening shortness of breath and swelling in his abdomen. reports about a 25 pound weight gain. Found to have acute exacerbation of his chronic CHF. Discussed case with ER, request admission for diuresis. I agreed to admit for further management. Concern for abdominal distention. Responded well to doses of Bumex overnight. -2.5 L. Will continue Bumex IV today. Strict I's and O's. Continues to require inpatient management due to level of volume overload. Problems addressed as follows: Acute on chronic HFrCHF NYHA class III heart failure History of CABG x 4 Paroxysmal A-fib Hyperlipidemia -Review of chart shows echo obtained in March with EF 40%. -Continue Bumex 3 mg IV twice daily. -2.5 L since admission -Continue carvedilol 12.5 mg twice daily, Plavix 75 mg daily, empagliflozin 10 mg daily, enalapril 25 mg daily, spironolactone 25 mg daily, and verquvo 2.5 mg daily -Potassium 2.8, magnesium 2.1. Replace aggressively with oral potassium. Repeat BMP and magnesium ordered for 6 PM this evening. -Drug therapy requiring close monitoring for toxicity with diuresis -AICD in place, monitor on continuous telemetry. -Creatinine 1.8, BUN 16. -Repeat CBC, CMP, magnesium ordered for the morning. -Supplemental oxygen as needed, goal sats greater 90%. currently on RA CKD III -Kidney function normal with creatinine 1.8, BUN 16. Monitoring every 12 hours with diuresis. Constipation: -Continue docusate/senna twice daily scheduled. Will consider enema in the morning if no bowel movement. -CT of abdomen pelvis obtained showing concern for cirrhosis with anasarca and small ascites. Type 2 diabetes -Insulin-dependent. A1c earlier this month 7.9. Continue glargine 15 units nightly, decreased to avoid hypoglycemia. Continue sliding scale insulin with fingersticks ACHS. -Morning glucose 105 Continued home Wellbutrin for mood Full code Cardiac diet Apixaban 5 mg twice daily
[2023-11-04 16:08] LABS: POC Glucose,Bedside 143 (70-110)
[2023-11-04] MEDS: OXYCODONE 5MG W/APAP 325MG TABLET 1 EACH PO (17:11)
--- NOTE | 2023-11-04 17:32 | PC.NURSE ---
Alert and oriented. Patient requested bilateral legs be wrapped due to ulcerations, wrapped twice this shift with gauze and ney wrap . Pt has complained of pain in the legs 1 time, treated per mar. Room air. pt complained of pain, swelling and odor from the testicular area. assessed and applied powder at patient request. no change in appearance compared to when patient arrived to the floor. No bowel movement this shift. Call light in reach. family at bedside.
[2023-11-04] MEDS: FLUTICASONE/SALMETEROL 250/50MCG DISKUS 1 PUFF IH (19:07)
[2023-11-04 20:54] LABS: POC Glucose,Bedside 206 (70-110)
[2023-11-04] MEDS: INSULIN GLARGINE 100 UNITS/ML 3ML FLEXPEN 15 UNIT SQ (20:59)
[2023-11-04] MEDS: PANTOPRAZOLE 40MG TABLET 40 MG PO (20:59)
[2023-11-04] MEDS: ATORVASTATIN 40MG TABLET 80 MG PO (20:59)
--- NOTE | 2023-11-04 23:56 | P.PN_ITS ---
Subjective *Date: 11/04/23 *Time: 23:56 Interval history: Skin breakdown to lower extremities., Patient with a long history of CHF leg swelling and uncontrolled diabetes mellitus, noted that his skin wounds to his legs are recurrent he gets them to heal they come straight back, presently both legs have areas of skin breakdown from 4-6 areas between the knee and the ankle. Exam Data for Last 24 hours Vital signs and Labs for Last 24 Hours: Temp Pulse Resp BP Pulse Ox O2 Del Method 97.9 F 60 18 117/68 96 Room Air 11/04/23 20:00 11/04/23 20:00 11/04/23 20:00 11/04/23 20:00 11/04/23 20:00 11/04/23 23:00 Laboratory Results - last 24 hr 11/04/23 06:39: WBC 5.0, RBC 3.73 L, Hgb 9.7 L, Hct 33.7 L, MCV 90.2, MCH 26.0 L , MCHC 28.8 L, RDW 17.9 H, Plt Count 249, MPV 8.5, Neut % (Auto) 67.1, Lymph % (Auto) 17.9, [place] % (Auto) 8.8, Eos % (Auto) 4.7, Baso % (Auto) 1.4, Neut # (Auto) 3.4, Lymph # (Auto) 0.9, [place] # (Auto) 0.4, Eos # (Auto) 0.2, Baso # (Auto) 0.1, Sodium 140, Potassium 2.8 L*, Chloride 104, Carbon Dioxide 33 H, Anion Gap 5.8, BUN 16, Creatinine 1.80 H, Estimated Creat Clear 61, Estimated GFR 39 L, Est GFR ( Amer) 47 L, Glucose 105 H D, Calcium 8.8, Magnesium 2.1, Total Bilirubin 1.2, AST 29, ALT 14, Alkaline Phosphatase 240 H, Total Protein 6.7, Albumin 3.1 L, Globulin 3.6 H, Albumin/Globulin Ratio 0.9 L 11/04/23 10:50: POC Glucose 192 H 11/04/23 16:00: POC Glucose 143 H 11/04/23 20:47: POC Glucose 206 H I & O for Last 24 hours: Intake & Output 11/01/23 11/02/23 11/03/2311/03/24 23:59 23:59 23:59 23:59 Intake Total 1939 Output Total 1999 Balance -1999 / 1700 - / - Weight 98.685 kg 99.536 kg *Routine Skin Exam Skin: Present wounds Comments: Both lower extremities full-thickness Derm breakdown in several areas averaging from 3 cm round to 6 cm oval, with reddened skin to the shins of both lower extremities, noting some edema still present in right ankle, pulses were checked and dorsal pedis are palpable on both feet. 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 Will place a wound care consult into the orders.
[2023-11-05] VITALS (7 sets, daily range): BP systolic 112–146; BP diastolic 64–70; PULSE 60–66; RESP 16–20; TEMP 36.6–36.8; O2SAT 95–99; BMI 31.0
--- NOTE | 2023-11-05 05:11 | PC.NURSE ---
Patient had a good night. Patient sat up on the side of the bed for most of the begining of shift, but then rested comfortably and slept for the rest of shift. Patient dressing on his legs were changed and the provider was notified for a possible wound consult. Patient has used the urinal and voided through the night. Patient has not had a BM but is passing gas. no other complaints
[2023-11-05] MEDS: FLUTICASONE/SALMETEROL 250/50MCG DISKUS 1 PUFF IH ×2 (06:55→18:20)
[2023-11-05 07:56] LABS: Basophils % 0.6 % (0.1-2.0); Eosinophils # 0.2 K/mm3 (0.0-0.4); Eosinophils % 3.2 % (0.1-12.0); Hemoglobin 9.8 g/dL (14.1-18.0); Lymphocytes # 0.9 K/mm3 (0.7-4.5); Mean Corpuscular HGB Conc 29.7 g/dL (31.8-35.4); Mean Corpuscular Hemoglobin 26.7 pg (27.0-31.2); Mean Platelet Volume 8.2 fl (7.4-10.4); Monocytes # 0.5 K/mm3 (0.1-1.0); Monocytes % 9.1 % (1.7-9.3); Neutrophils # 4.2 K/mm3 (1.8-7.8); Neutrophils % 72.1 % (37.0-80.0); Platelet Count 256 K/mm3 (142-424); Red Blood Count 3.66 M/mm3 (4.60-6.20); Red Cell Distribution Width 18.1 % (11.5-17.5); White Blood Count 5.9 K/mm3 (4.8-10.8)
[2023-11-05 08:09] LABS: Alanine Aminotransferase 13 U/L (12-78); Albumin/Globulin Ratio 0.8 (1.1-1.8); Alkaline Phosphatase 254 U/L (38-126); Aspartate Amino Transferase 27 U/L (17-59); Bilirubin,Total 1.4 mg/dl (0.2-1.3); Blood Urea Nitrogen 21 mg/dl (9-20); Calcium 8.7 mg/dl (8.4-10.2); Carbon Dioxide 32 mmol/L (22.0-30.0); Chloride 105 mmol/L (98-107); Creatinine Clearance Estimated 53 mL/min (50-200); Estimated Glomerular Filt Rate 34 ml/min (>60); GFR (African American) 41 ML/MIN (>60); Globulin 3.6 g/dL (1.3-3.2); Glucose 115 mg/dl (74-100); Magnesium 2.1 mg/dl (1.6-2.3); Sodium 139 mmol/L (136-145); Total Protein,Serum 6.6 g/dl (6.3-8.2)
[2023-11-05] MEDS: TAMSULOSIN 0.4MG CAPSULE 0.4 MG PO (09:12)
[2023-11-05] MEDS: CLOPIDOGREL 75MG TAB 75 MG PO (09:12)
[2023-11-05] MEDS: EMPAGLIFLOZIN 10MG TABLET 10 MG PO (09:12)
[2023-11-05] MEDS: SENNOSIDES 8.6MG/DOCUSATE 50MG TABLET 1 TAB PO ×2 (09:12→20:37)
[2023-11-05] MEDS: buPROPion HCl SR 150MG TAB 150 MG PO (09:12)
[2023-11-05] MEDS: LISINOPRIL 20MG TABLET 20 MG PO (09:12)
[2023-11-05] MEDS: APIXABAN 5MG TABLET 5 MG PO ×2 (09:12→20:37)
[2023-11-05] MEDS: POTASSIUM CHLORIDE 20MEQ TAB 40 MEQ PO ×3 (09:12→20:37)
[2023-11-05] MEDS: CARVEDILOL 12.5MG TABLET 12.5 MG PO ×2 (09:12→20:37)
[2023-11-05] MEDS: BUMETANIDE 1MG/4ML VIAL 3 MG IV ×2 (09:13→15:47)
[2023-11-05] MEDS: SPIRONOLACTONE 25MG TABLET 25 MG PO (09:13)
[2023-11-05 09:22] LABS: Anion Gap 6.4 mEq/L (5-15); Potassium 4.4 mmoL/L (3.5-5.1)
[2023-11-05 11:01] LABS: POC Glucose,Bedside 238 (70-110)
[2023-11-05] MEDS: humaLOG 100 UNITS/ML 10ML VIAL (SSI) SQ ×2 (11:01→20:38)
[2023-11-05] MEDS: OXYCODONE 5MG W/APAP 325MG TABLET 1 EACH PO (11:09)
--- NOTE | 2023-11-05 12:14 | P.PN_ITS ---
Subjective *Date: 11/05/23 *Time: 19:31 Interval history: Patient still feels dyspneic today. Edema noted different. Has diuresed over 2-1/2 L since admission. Distracted by TV on exam. Slept elevated in bed last night. States he sleeps in a recliner at home and has for months. No nausea or vomiting. Tolerating p.o. intake. Medical Exam Vital signs and Labs for Last 24 Hours: Vital Signs Temp Pulse Pulse Resp BP Pulse Ox O2 Del Method 11/05/23 11:47 97.8 F 60 20 146/70 H 95 Room Air 11/05/23 11:00 Room Air 11/05/23 09:00 Room Air 11/05/23 08:00 63 11/05/23 08:00 98.3 F 60 20 117/64 96 Room Air 11/05/23 08:00 Room Air 11/05/23 06:55 Room Air 11/05/23 05:00 Room Air 11/05/23 04:00 60 11/05/23 03:00 Room Air 11/05/23 01:00 Room Air 11/05/23 00:00 98.2 F 60 16 113/65 99 Room Air 11/05/23 00:00 60 11/04/23 23:00 Room Air 11/04/23 21:00 Room Air 11/04/23 20:00 60 11/04/23 20:00 97.9 F 60 18 117/68 96 Room Air 11/04/23 20:00 Room Air 11/04/23 18:48 Room Air 11/04/23 17:00 Room Air 11/04/23 16:00 60 11/04/23 16:00 97.7 F 60 17 143/77 H 96 11/04/23 15:00 Room Air 11/04/23 13:00 Room Air Intake and Output 11/04/23 11/05/23 11/05/23 23:59 07:59 15:59 Intake Total 480 / 2140 200 / 1000 800 / 1000 Output Total 450 / 2029 450 / 950 500 / 950 Balance 30 / 110 -250 / 50 300 / 50 Intake: Intake, Oral Amount 480 / 2140 200 / 1000 800 / 1000 Output: Output, Urine Amount 450 2029 450 / 950 500 / 950 Other: Number of Unmeasured Voids 1 Number of Bowel Movements 2 Weight 95.073 kg Patient Weight 11/05/23 23:59 Weight 95.073 kg Laboratory Results - last 24 hr 11/04/23 16:00: POC Glucose 143 H 11/04/23 20:47: POC Glucose 206 H 11/05/23 07:00: Sodium 139, Potassium 4.4 D, Chloride 105, Carbon Dioxide 32 H, Anion Gap 6.4, BUN 21 H D, Creatinine 2.00 H, Estimated Creat Clear 53, Estimated GFR 34 L, Est GFR ( Amer) 41 L, Glucose 115 H, Calcium 8.7, Magnesium 2.1, Total Bilirubin 1.4 H, AST 27, ALT 13, Alkaline Phosphatase 254 H , Total Protein 6.6, Albumin 3.0 L, Globulin 3.6 H, Albumin/Globulin Ratio 0.8 L 11/05/23 07:10: WBC 5.9, RBC 3.66 L, Hgb 9.8 L, Hct 33.0 L, MCV 90.0, MCH 26.7 L , MCHC 29.7 L, RDW 18.1 H, Plt Count 256, MPV 8.2, Neut % (Auto) 72.1, Lymph % (Auto) 15.0, [place] % (Auto) 9.1, Eos % (Auto) 3.2, Baso % (Auto) 0.6, Neut # (Auto) 4.2, Lymph # (Auto) 0.9, [place] # (Auto) 0.5, Eos # (Auto) 0.2, Baso # (Auto) 0.0 11/05/23 10:54: POC Glucose 238 H I & O for Labs for Last 24 Hours: Intake & Output 11/02/23 11/03/23 11/04/23 11/05/23 23:59 23:59 23:59 23:59 Intake Total 1939 / 0 1000 / 1000 Output Total 1999 950 / 950 Balance -2000 / -1700 -90 / 110 50 / 50 Weight 98.685 kg 99.536 kg 95.073 kg Constitutional: Present no acute distress and chronically ill appearing Head: Present atraumatic and normocephalic ENT: Present normal exam Neck: Present normal inspection Respiratory: Present crackles (minor in bases) and normal respiratory effort; Absent rhonchi or wheezes Cardiac: Present Reg Rate and Rhythm GI: Present soft and normal bowel sounds; Absent distention or tenderness Extremities: Present normal inspection, full ROM and edema (3+ to abdominal wall) Skin: Present erythema; Absent intact Comment:: Wounds present on legs, decreased weeping. Improving erythema. Neuro: Present Grossly Intact, alert, awake, oriented x 3 and moves all extremities Assessment and Plan *Assessment and plan (1) Acute exacerbation of CHF (congestive heart failure): Status: Acute Category: Medical Code(s): I50.9 - Heart failure, unspecified (2) NYHA class 3 heart failure with reduced ejection fraction: Status: Acute Category: Medical Code(s): I50.20 - Unspecified systolic (congestive) heart failure (3) Chronic kidney disease, stage 3a: Status: Acute Category: Medical Code(s): N18.31 - Chronic kidney disease, stage 3a (4) S/P CABG (coronary artery bypass graft): Problem Comment: Cardiology is following. Status: Chronic Category: Surgical Code(s): Z95.1 - Presence of aortocoronary bypass graft (5) PAF (paroxysmal atrial fibrillation): Problem Comment: Patient is following with cardiology. Status: Acute Category: Medical Code(s): I48.0 - Paroxysmal atrial fibrillation (6) CAD (coronary artery disease): Status: Acute Qualifiers: Coronary Disease-Associated Artery/Lesion type: [place] artery [place] vs. transplanted heart: [place] heart Associated angina: without angina Qualified Code(s): I25.10 - Atherosclerotic heart disease of [place] coronary artery without angina pectoris Category: Medical Code(s): I25.10 - Atherosclerotic heart disease of [place] coronary artery without angina pectoris (7) GERD (gastroesophageal reflux disease): Status: Inactive Category: Medical Code(s): K21.9 - Gastro-esophageal reflux disease without esophagitis (8) Tobacco dependence syndrome: Status: Acute Category: Medical Code(s): F17.200 - Nicotine dependence, unspecified, uncomplicated (9) HLD (hyperlipidemia): Status: Acute Qualifiers: Hyperlipidemia type: mixed hyperlipidemia Qualified Code(s): E78.2 - Mixed hyperlipidemia Category: Medical Code(s): E78.5 - Hyperlipidemia, unspecified (10) HTN (hypertension): 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 intermediate accountant insulin use: without intermediate accountant use Diabetes mellitus complication status: with other specified complication Qualified Code(s): E11.69 - Type 2 diabetes mellitus with other specified complication Category: Medical Code(s): E11.9 - Type 2 diabetes mellitus without complications Plan 58-year-old status post CABG x4 who presented to the ER because of worsening shortness of breath and swelling in his abdomen. reports about a 25 pound weight gain. Found to have acute exacerbation of his chronic CHF. Discussed case with ER, request admission for diuresis. I agreed to admit for further management. Concern for abdominal distention. Continue Bumex. -2.5 L since admission. Strict I's and O's. Continues to require inpatient management due to level of volume overload. Problems addressed as follows: Acute on chronic HFrCHF NYHA class III heart failure History of CABG x 4 Paroxysmal A-fib Hyperlipidemia -Review of chart shows echo obtained in March with EF 40%. -Continue Bumex 3 mg IV twice daily. -2.5 L since admission -Continue carvedilol 12.5 mg twice daily, Plavix 75 mg daily, empagliflozin 10 mg daily, enalapril 25 mg daily, spironolactone 25 mg daily, and verquvo 2.5 mg daily -Potassium 4.4, magnesium 2.1. Repeat BMP and magnesium ordered for 6 PM this evening. -Drug therapy requiring close monitoring for toxicity with diuresis -AICD in place, monitor on continuous telemetry. -Creatinine 1.8, BUN 16. -Repeat CBC, CMP, magnesium ordered for the morning. -Supplemental oxygen as needed, goal sats greater 90%. currently on RA -Cardiology consult placed for the morning CKD III -Kidney function normal with creatinine 1.8, BUN 16. Monitoring every 12 hours with diuresis. Constipation: -Continue docusate/senna twice daily scheduled. Will consider enema in the morning if no bowel movement. -CT of abdomen pelvis obtained showing concern for cirrhosis with anasarca and small ascites. Type 2 diabetes -Insulin-dependent. A1c earlier this month 7.9. Continue glargine 15 units nightly, decreased to avoid hypoglycemia. Continue sliding scale insulin with fingersticks ACHS. -Morning glucose 105 Continued home Wellbutrin for mood Full code Cardiac diet Apixaban 5 mg twice daily
[2023-11-05 15:48] LABS: POC Glucose,Bedside 147 (70-110)
--- NOTE | 2023-11-05 17:17 | PC.NURSE ---
pt is currently sitting on the side of the bed. pt has had adequate urine output, but still no bm. passing gas frequently. medicated once per mar for leg pain. dressing changed on legs once this shift. pt has been refusing to ambulate consistently due to not having his personal cane. a&ox4. no needs verbalized at this time. call light in reach.
[2023-11-05 19:11] LABS: Chloride 102 mmol/L (98-107); Potassium 4.5 mmoL/L (3.5-5.1); Sodium 137 mmol/L (136-145)
[2023-11-05 19:14] LABS: Anion Gap 7.5 mEq/L (5-15); Blood Urea Nitrogen 23 mg/dl (9-20); Calcium 8.7 mg/dl (8.4-10.2); Carbon Dioxide 32 mmol/L (22.0-30.0); Creatinine Clearance Estimated 53 mL/min (50-200); Estimated Glomerular Filt Rate 34 ml/min (>60); GFR (African American) 41 ML/MIN (>60); Glucose 192 mg/dl (74-100)
[2023-11-05] MEDS: ATORVASTATIN 40MG TABLET 80 MG PO (20:37)
[2023-11-05] MEDS: PANTOPRAZOLE 40MG TABLET 40 MG PO (20:37)
[2023-11-05] MEDS: INSULIN GLARGINE 100 UNITS/ML 3ML FLEXPEN 15 UNIT SQ (20:38)
[2023-11-06] VITALS: PULSE 65
[2023-11-06 04:00] VITALS: BP 139/80; PULSE 63; PULSE 64; RESP 16; TEMP 36.7; O2SAT 95; BMI 32.3
--- NOTE | 2023-11-06 05:06 | PC.NURSE ---
Patient has had a good night tonight. Has rested well. Patient did state he had 3 small BM yesterday, his ABD is still firm to the touch and rounded. Remains on RA and A&O no other issues. Dressing were changed on is legs
[2023-11-06] MEDS: FLUTICASONE/SALMETEROL 250/50MCG DISKUS 1 PUFF IH ×2 (06:39→18:11)
[2023-11-06 07:46] LABS: Albumin Level 3.3 g/dl (3.5-5.0); Chloride 102 mmol/L (98-107); Potassium 4.7 mmoL/L (3.5-5.1); Sodium 139 mmol/L (136-145)
[2023-11-06 07:49] LABS: Alanine Aminotransferase 13 U/L (12-78); Albumin/Globulin Ratio 0.9 (1.1-1.8); Alkaline Phosphatase 253 U/L (38-126); Anion Gap 9.7 mEq/L (5-15); Aspartate Amino Transferase 25 U/L (17-59); Bilirubin,Total 1.3 mg/dl (0.2-1.3); Blood Urea Nitrogen 23 mg/dl (9-20); Calcium 8.8 mg/dl (8.4-10.2); Carbon Dioxide 32 mmol/L (22.0-30.0); Creatinine Clearance Estimated 52 mL/min (50-200); Estimated Glomerular Filt Rate 32 ml/min (>60); GFR (African American) 39 ML/MIN (>60); Globulin 3.5 g/dL (1.3-3.2); Glucose 72 mg/dl (74-100); Total Protein,Serum 6.8 g/dl (6.3-8.2)
--- OUTSIDE RECORDS SUMMARY | 2023-11-06 07:49 | XMS_ITS | Encounter Summary ---
Author Organization [facility] Address [facility] [place] [address] Encounter Details Date Type Department Care Team Description 2023-06-16 Telephone [facility] [address] [place] [address] Kimmie Salazar Medication Reconciliation was successfully completed by the [facility]. ASSESSMENT No Information TREATMENT PLAN No Information
--- OUTSIDE RECORDS SUMMARY | 2023-11-06 07:49 | XMS_ITS | Encounter Summary ---
Author Organization [facility] Address [facility] [place] [address] Encounter Details Date Type Department Care Team Description 2023-08-21 Telephone [facility] [address] [place] [address] Zahra Salazar Medication Reconciliation was successfully completed by the [facility]. ASSESSMENT No Information TREATMENT PLAN No Information
--- OUTSIDE RECORDS SUMMARY | 2023-11-06 07:49 | XMS_ITS | Encounter Summary ---
Author Organization [facility] Address [facility] [place] [address] Encounter Details Date Type Department Care Team Description 2023-08-21 Telephone [facility] [address] [place] [address] Zahra Salazar Medication Reconciliation was successfully completed by the [facility]. ASSESSMENT No Information TREATMENT PLAN No Information
--- OUTSIDE RECORDS SUMMARY | 2023-11-06 07:49 | XMS_ITS | Encounter Summary ---
Author Organization [facility] Address [facility] [place] [address] Encounter Details Date Type Department Care Team Description 2023-07-24 Telephone [facility] [address] [place] [address] Martha Salazar Medication Reconciliation was successfully completed by the [facility]. ASSESSMENT No Information TREATMENT PLAN No Information
--- OUTSIDE RECORDS SUMMARY | 2023-11-06 07:49 | XMS_ITS ---
Author Organization Unknown ALLERGIES AND ADVERSE REACTIONS No information ASSESSMENT No information CHIEF COMPLAINT No information MEDICATIONS No information OBJECTIVE DATA No information PHYSICAL EXAMINATION No information TREATMENT PLAN Planned Care Start Date Provider Encounter for Check-up [phone] [facility] PROBLEMS No information RESULTS No information REVIEW OF SYSTEMS No information SUBJECTIVE DATA No information VITAL SIGNS No information
--- OUTSIDE RECORDS SUMMARY | 2023-11-06 07:49 | XMS_ITS | Encounter Summary ---
Author Organization [facility] Address [facility] [place] [address] Encounter Details Date Type Department Care Team Description 2023-08-16 Telephone [facility] [address] [place] [address] Larissa Salazar Medication Reconciliation was successfully completed by the [facility]. ASSESSMENT No Information TREATMENT PLAN No Information
--- OUTSIDE RECORDS SUMMARY | 2023-11-06 07:49 | XMS_ITS | Encounter Summary ---
Author Organization [facility] Address [facility] [place] [address] Encounter Details Date Type Department Care Team Description 2023-07-13 Telephone [facility] [address] [place] [address] Kimmie Salazar Medication Reconciliation was successfully completed by the [facility]. ASSESSMENT No Information TREATMENT PLAN No Information
--- OUTSIDE RECORDS SUMMARY | 2023-11-06 07:49 | XMS_ITS | Encounter Summary ---
Author Organization [facility] Address [facility] [place] [address] Encounter Details Date Type Department Care Team Description 2023-06-16 Telephone [facility] [address] [place] [address] Kimmie Salazar Medication Reconciliation was successfully completed by the [facility]. ASSESSMENT No Information TREATMENT PLAN No Information
--- OUTSIDE RECORDS SUMMARY | 2023-11-06 07:49 | XMS_ITS | Encounter Summary ---
Author Organization [facility] Address [facility] [place] [address] Encounter Details Date Type Department Care Team Description 2023-06-27 Telephone [facility] [address] [place] [address] Martha Salazar Medication Reconciliation was successfully completed by the [facility]. ASSESSMENT No Information TREATMENT PLAN No Information
--- OUTSIDE RECORDS SUMMARY | 2023-11-06 07:49 | XMS_ITS | Encounter Summary ---
Author Organization [facility] Address [facility] [place] [address] Encounter Details Date Type Department Care Team Description 2023-08-11 Telephone [facility] [address] [place] [address] Martha Salazar Medication Reconciliation was successfully completed by the [facility]. ASSESSMENT No Information TREATMENT PLAN No Information
--- OUTSIDE RECORDS SUMMARY | 2023-11-06 07:49 | XMS_ITS | Encounter Summary ---
Author Organization [facility] Address [facility] [place] [address] Encounter Details Date Type Department Care Team Description 2023-07-13 Telephone [facility] [address] [place] [address] Kimmie Salazar Medication Reconciliation was successfully completed by the [facility]. ASSESSMENT No Information TREATMENT PLAN No Information
--- OUTSIDE RECORDS SUMMARY | 2023-11-06 07:49 | XMS_ITS | Encounter Summary ---
Author Organization [facility] Address [address] [place] [address] Encounter Details Date Type Department Care Team Description 2023-05-12 Telephone [facility] [address] [place] [address] Nazanin Salazar Medication Reconciliation was successfully completed by the [facility]. ASSESSMENT No Information TREATMENT PLAN No Information
--- OUTSIDE RECORDS SUMMARY | 2023-11-06 07:49 | XMS_ITS | Encounter Summary ---
Author Organization [facility] Address [facility] [place] [address] Encounter Details Date Type Department Care Team Description 2023-08-21 Telephone [facility] [address] [place] [address] Zahra Salazar Medication Reconciliation was successfully completed by the [facility]. ASSESSMENT No Information TREATMENT PLAN No Information
--- OUTSIDE RECORDS SUMMARY | 2023-11-06 07:49 | XMS_ITS | Encounter Summary ---
Author Organization [facility] Address [facility] [place] [address] Encounter Details Date Type Department Care Team Description 2023-06-16 Telephone [facility] [address] [place] [address] Kimmie Salazar Medication Reconciliation was successfully completed by the [facility]. ASSESSMENT No Information TREATMENT PLAN No Information
[2023-11-06 08:00] VITALS: BP 125/75; PULSE 61; PULSE 63; RESP 18; TEMP 37.5; O2SAT 97
[2023-11-06] MEDS: TAMSULOSIN 0.4MG CAPSULE 0.4 MG PO (08:07)
[2023-11-06] MEDS: SENNOSIDES 8.6MG/DOCUSATE 50MG TABLET 1 TAB PO ×2 (08:07→21:32)
[2023-11-06 08:08] LABS: Basophils % 0.7 % (0.1-2.0); Eosinophils # 0.2 K/mm3 (0.0-0.4); Eosinophils % 3.1 % (0.1-12.0); Hematocrit 34.5 % (42.0-52.0); Hemoglobin 9.9 g/dL (14.1-18.0); Lymphocytes % 17.3 % (10-50); Mean Corpuscular HGB Conc 28.8 g/dL (31.8-35.4); Mean Corpuscular Hemoglobin 26.2 pg (27.0-31.2); Mean Corpuscular Volume 90.9 fl (80-94); Mean Platelet Volume 8.7 fl (7.4-10.4); Monocytes # 0.5 K/mm3 (0.1-1.0); Neutrophils # 4.1 K/mm3 (1.8-7.8); Neutrophils % 69.8 % (37.0-80.0); Platelet Count 273 K/mm3 (142-424); Red Blood Count 3.79 M/mm3 (4.60-6.20); White Blood Count 5.8 K/mm3 (4.8-10.8)
[2023-11-06] MEDS: BUMETANIDE 1MG/4ML VIAL 3 MG IV (08:08)
[2023-11-06] MEDS: APIXABAN 5MG TABLET 5 MG PO ×2 (08:08→20:49)
[2023-11-06] MEDS: SPIRONOLACTONE 25MG TABLET 25 MG PO (08:08)
[2023-11-06] MEDS: CLOPIDOGREL 75MG TAB 75 MG PO (08:09)
[2023-11-06] MEDS: EMPAGLIFLOZIN 10MG TABLET 10 MG PO (08:09)
[2023-11-06] MEDS: buPROPion HCl SR 150MG TAB 150 MG PO (08:09)
[2023-11-06] MEDS: POTASSIUM CHLORIDE 20MEQ TAB 40 MEQ PO ×2 (08:10→12:37)
[2023-11-06] MEDS: LISINOPRIL 20MG TABLET 20 MG PO (08:13)
[2023-11-06] MEDS: CARVEDILOL 12.5MG TABLET 12.5 MG PO ×2 (08:13→20:49)
[2023-11-06 08:29] LABS: Magnesium 2.1 mg/dl (1.6-2.3)
--- NOTE | 2023-11-06 10:20 | CA_ITS ---
APPROVED REPORT EXAM: Comprehensive 2D, Doppler, and color-flow Echocardiogram Dry Kiln Operator: Geraldine Bill RT(R) Ht: 5 ft 9 in Wt: 218lbs BSA: 2.14 BP: 136/84 mmHg Indications: SOB, edema, smoker, HTN, DM, hyperlipidemia, AFIB, CM, CAD, AICD, MV ring, hx CABG, stent 2D Dimensions LVEF (Campos's) 29.70 % M: 52 - 72 LV Volume 159.00 mL M: 62 - 150 LV Volume Index 74.3 mL/m2 M: 34 - 74 LA Volume 53.90 mL LA Volume Index 25.19 mL/m2 (M/F) 16-34 EF AP4 16.70 % EF AP2 36.8 % EF BP 29.7 % GL Strain -8.2 % M-Mode Dimensions RVDd 3.46 cm (0.9-2.6) LA Diam 4.61 cm (1.9-4.0) LVDd 6.54 cm (3.5-5.7) LVDs 5.85 cm (3.5-5.7) IVSd 0.95 cm (0.6-1.1) PWd 0.95 cm (0.6-1.1) EF (Teich) 22.40% FS 10.60% EDV (Teich) 219.00 mL ESV (Teich) 169.90 mL LV Diastology E Decel Time 153 (160-240 msec) E/A Ratio 4.1 Aortic Valve AO VTI 40.9 (18-25 cm) Mitral Valve MV E Max Billy. 142.0 (40-130 cm/s) MV A Velocity 35.0 (40-130 cm/s) E/A Ratio 4.06 MV PHT 45.0 ms Tricuspid Valve TR P. Velocity 293.00 cm/s RAP Estimate 15.00 mmHg RVSP 49.30 mmHg Left Ventricle The left ventricle is mildly dilated. Left ventricular systolic function is severely decreased. There is increased LV wall thickness. There is severe global hypokinesis present. Diastolic function is indeterminate. LVEF is 20%. Right Ventricle The right ventricle is moderately dilated. Right ventricle is mildly hypokinetic. A device lead is present in the right ventricle. Atria Left atrium is mildly dilated. Right atrium is moderately dilated. Aortic Valve The aortic valve is mildly thickened. Trace aortic regurgitation. There is no aortic valvular stenosis. Mitral Valve s/p MV annuloplasty ring. Mean MV gradient 3 mmHg (HR 60 bpm). Mild mitral regurgitation is present. Tricuspid Valve Tricuspid valve is grossly normal in structure and function. Moderate tricuspid regurgitation. RVSP is 35-40 mmHg. Pulmonic Valve The pulmonary valve is normal in structure. Trace pulmonic regurgitation. Great Vessels The aortic root is normal in size. The ascending aorta is not well-visualized. IVC is normal in size and collapses >50% with inspiration. Pericardium There is no pericardial effusion. Ascites is present. Other Information Study Quality: Fair Conclusion Mild LV dilation with severe reduction in LV systolic function (LVEF 20%). Moderate RV dilation with mild reduction in RV function. Biatrial dilation. s/p MV annuloplasty ring. Mild MR. Mean MV acceptable at gradient 3 mmHg (HR 60 bpm). Moderate TR. Ascites is present. Compared to the most recent limited TTE on 04/14/2023, the LVEF is now further reduced. Electronically signed by : Cherelle Tarango MD 11/07/2023 13:23:19
[2023-11-06 11:46] LABS: POC Glucose,Bedside 82 (70-110)
[2023-11-06 12:00] VITALS: BP 128/73; PULSE 62; PULSE 64; RESP 18; TEMP 36.4; O2SAT 97
[2023-11-06 13:44] VITALS: BMI 32.3
[2023-11-06] MEDS: BUMETANIDE 10 MG in 0.9 % SODIUM CHLORIDE 60 ML IV ×2 (13:49→21:01)
--- NOTE | 2023-11-06 13:51 | EXP.CARD.CON ---
History of Present Illness History of Present Illness Consult date: 11/06/23 Requesting physician: Matthew Mccarthy Chief complaint: edema, weight gaim History of present illness: This is a 58-year-old gentleman with a history of HFrEF status post AICD placement, CAD with a history of CABG, paroxysmal atrial fibrillation, hypertension, hyperlipidemia, diabetes and chronic kidney disease. He states that he has been having abdominal swelling and swelling in his thighs for approximately a week. The patient states that he had at least a 25 pound weight gain and was unable to get the fluid off at home. He states that he was compliant with his medications and nothing was helping to get the fluid off. He denies any chest pain or pressure. He denies any shortness of breath. He denies any fever, chills, nausea, vomiting or diarrhea. He does have associated orthopnea with his shortness of breath. He denies cough. He has been diuresed with IV Lasix. He states that he feels like he has had no improvement is in his abdominal edema since being here at the hospital. [facility] Disclaimer: The information contained in this section may have been updated after the patient was seen, as this information can be updated by other users. Medical History (Updated 11/06/23 @ 13:57 by Arabella Martinez APRN) Insulin dependent diabetes mellitus Acute on chronic HFrEF (heart failure with reduced ejection fraction) Neuropathy Hyperglycemia due to diabetes mellitus Acute hyperkalemia Cardiac volume overload Acute exacerbation of CHF (congestive heart failure) Lymphedema Globus sensation Dysphagia Esophagitis Acute exacerbation of CHF (congestive heart failure) Chronic kidney disease, stage 3a NYHA class 3 heart failure with reduced ejection fraction PAF (paroxysmal atrial fibrillation) Heart failure with reduced ejection fraction Systolic heart failure Dizziness Dyspnea Typical angina Coronary artery disease GERD (gastroesophageal reflux disease) Smoker Deviated nasal septum Hoarseness Arthritis H/O blood clots History of stroke Diabetes mellitus, type 2 Asthma History of heart attack Hypertension Diabetes Tobacco dependence syndrome HLD (hyperlipidemia) HTN (hypertension) CAD (coronary artery disease) Surgical History (Updated 11/06/23 @ 13:56 by Arabella Martinez APRN) AICD (automatic cardioverter/defibrillator) present S/P CABG x 4 S/P CABG (coronary artery bypass graft) History of heart artery stent Family History Other Cancer Coronary artery disease Diabetes Hypertension Kidney disease Stroke Social History Smoking Status: Former smoker tobacco type: cigarettes packs per day: 1 second hand exposure: Yes alcohol intake: never counseling provided: none substance use type: denies use current occupational status: disabled and other Travel in the last 8 weeks: None household members: family housing: house caffeine: Yes Review of Systems Review of Systems Review of systems:: pertinent systems reviewed and negative unless documented below Constitutional Constitutional: Reports system reviewed and no additional complaints, except as documented, Reports fatigue and Reports lethargy Eyes Eyes: Reports system reviewed and no additional complaints, except as documented ENT Ears, Nose, Mouth, and Throat: Reports system reviewed and no additional complaints, except as documented *Cardiovascular Cardiovascular: Reports system reviewed and no additional complaints, except as documented, Denies chest pain, Reports dyspnea, Reports dyspnea on exertion, Reports edema (To the abdomen, thighs and back), Denies leg edema and Reports orthopnea *Respiratory Respiratory: Reports system reviewed and no additional complaints, except as documented, Reports dyspnea and Reports dyspnea on exertion *Gastrointestinal Gastrointestinal: Reports system reviewed and no additional complaints, except as documented and Reports other (Abdominal swelling) *Genitourinary Genitourinary: Reports system reviewed and no additional complaints, except as documented *Musculoskeletal Musculoskeletal: Reports system reviewed and no additional complaints, except as documented Integumentary/Breasts Skin/Breast: Reports system reviewed and no additional complaints, except as documented *Neurologic Neurologic: Reports system reviewed and no additional complaints, except as documented Psychiatric Psychiatric: Reports system reviewed and no additional complaints, except as documented Endocrine Endocrine: Reports system reviewed and no additional complaints, except as documented and Reports fatigue Hematologic/Lymphatic Hematologic/Lymphatic: Reports system reviewed and no additional complaints, except as documented Allergic/Immunologic Allergic/Immunologic: Reports system reviewed and no additional complaints, except as documented Exam Data for Last 24 hours Vital signs and Labs for Last 24 Hours: Temp Pulse Resp BP Pulse Ox O2 Del Method 97.5 F L 64 18 128/73 97 Room Air 11/06/23 12:00 11/06/23 12:00 11/06/23 12:00 11/06/23 12:00 11/06/23 12:00 11/06/23 13:00 Laboratory Results - last 24 hr 11/05/23 15:41: POC Glucose 147 H 11/05/23 18:45: Sodium 137, Potassium 4.5, Chloride 102, Carbon Dioxide 32 H, Anion Gap 7.5, BUN 23 H, Creatinine 2.00 H, Estimated Creat Clear 53, Estimated GFR 34 L, Est GFR ( Amer) 41 L, Glucose 192 H D, Calcium 8.7 11/06/23 06:59: WBC 5.8, RBC 3.79 L, Hgb 9.9 L, Hct 34.5 L, MCV 90.9, MCH 26.2 L, MCHC 28.8 L, RDW 18.0 H, Plt Count 273, MPV 8.7, Neut % (Auto) 69.8, Lymph % (Auto) 17.3, Dewitt % (Auto) 9.0, Eos % (Auto) 3.1, Baso % (Auto) 0.7, Neut # (Auto) 4.1, Lymph # (Auto) 1.0, Dewitt # (Auto) 0.5, Eos # (Auto) 0.2, Baso # (Auto) 0.0, Sodium 139, Potassium 4.7, Chloride 102, Carbon Dioxide 32 H, Anion Gap 9.7, BUN 23 H, Creatinine 2.10 H, Estimated Creat Clear 52, Estimated GFR 32 L, Est GFR ( Amer) 39 L, Glucose 72 L D, Calcium 8.8, Magnesium 2.1, Total Bilirubin 1.3, AST 25, ALT 13, Alkaline Phosphatase 253 H, Total Protein 6.8, Albumin 3.3 L, Globulin 3.5 H, Albumin/Globulin Ratio 0.9 L 11/06/23 11:32: POC Glucose 82 I & O for Last 24 hours: Intake & Output 11/03/23 11/04/23 11/05/23 11/06/23 23:59 23:59 23:59 23:59 Intake Total 1940 / 0 1000 / 1250 610 / 610 Output Total 1999 / 215 2850 / 2850 Balance -1999 / -1700 -90 / 110 -1150 / -900 -2240 / -2240 Weight 217 lb 9 oz 219 lb 7.022 oz 209 lb 9.6 oz 218 lb 4.122 oz Constitutional Constitutional: no acute distress and obese *Routine HEENT Exam Head: Present normocephalic and atraumatic ENT: Present mucous membranes moist *Routine Neck Exam Neck: Present supple, full ROM and normal carotid upstroke; Absent JVD, carotid bruit or lymphadenopathy *Routine Respiratory Exam Respiratory: Present CTA bilaterally, normal respiratory effort, able to speak in complete sentences and symmetric chest movement *Routine Cardiovascular Exam Cardiovascular: Present RRR, Normal S1 and Normal S2; Absent murmur or gallop *Routine Abdominal Exam Abdominal: Present normoactive bowel sounds, distended and firm; Absent tenderness or organomegaly *Routine Extremities Exam Extremities: Present full ROM, pulses intact and normal capillary refill; Absent cyanosis, clubbing or edema *Routine Skin Exam Skin: Present intact and warm; Absent erythema *Routine Neurological Exam Neurological: Present alert, oriented X3 and CN II-XII intact; Absent sensory deficit or motor deficit Routine Psychiatric Exam Psychiatric: Present normal affect Meds Home Medications and Allergies Home Medications ?Medication ?Instructions ?Recorded ?Confirmed ?Type mecobalamin (vitamin B12) 1,000 1,000 mcg PO DAILY Supplement 02/10/23 11/03/23 History mcg chewable tablet nitroglycerin 0.4 mg sublingual 0.4 mg sublingual Q5MINP PRN chest 02/10/23 11/03/23 History tablet pain vericiguat 2.5 mg tablet (Verquvo) 2.5 mg PO DAILY 30 days #30 tabs 04/17/23 11/03/23 Rx carvedilol 12.5 mg tablet 12.5 mg PO BID 05/10/23 11/03/23 History tamsulosin 0.4 mg capsule 0.4 mg PO DAILY #30 caps 06/26/23 11/03/23 Rx albuterol sulfate 90 mcg/actuation 2 puff inhalation QIDP PRN 07/05/23 11/03/23 Rx aerosol inhaler shortness of breath or wheezing #8.5 grams budesonide-formoterol HFA 160 1 inh inhalation BID #10.2 grams 07/05/23 11/03/23 Rx mcg-4.5 mcg/actuation aerosol inhaler (Symbicort) omeprazole 40 mg capsule,delayed 40 mg PO DAILY Acid reflux #90 caps 09/04/23 11/03/23 Rx release insulin glargine 100 unit/mL (3 25 unit (0.25 mL) SQ HS Diabetes 08/12/24 09/13/24 Rx mL) subcutaneous pen (Lantus #15 mL Solostar U-100 Insulin) mupirocin 2 % topical ointment 1 applic topical TID #22 grams 10/02/23 11/03/23 Rx atorvastatin 80 mg tablet (Lipitor) 80 mg PO DAILY #30 tabs 10/20/23 11/03/23 Rx apixaban 5 mg tablet (Eliquis) 5 mg PO Q12H Blood Thinner #60 tabs 10/30/23 11/03/23 Rx empagliflozin 10 mg tablet 10 mg PO DAILY #90 tabs 10/30/23 11/03/23 Rx oxycodone-acetaminophen 5 mg-325 1 tab PO TID PRN pain #45 tabs 10/30/23 11/03/23 Rx mg tablet (Percocet) coenzyme Q10 100 mg capsule 100 mg PO DAILY 11/03/23 11/03/23 History (CoQ-10) spironolactone 25 mg tablet 25 mg PO DAILY 11/03/23 11/03/23 History bumetanide 2 mg tablet 4 mg PO DAILY 11/04/23 11/04/23 History New Prescriptions to Start Prescriptions: Allergies Allergy/AdvReac Type Severity Reaction Status Date / Time No Known Allergies Allergy Verified 10/30/23 10:01 Assessment and Plan *Assessment and plan (1) Acute on chronic HFrEF (heart failure with reduced ejection fraction): Status: Acute Category: Medical Code(s): I50.23 - Acute on chronic systolic (congestive) heart failure (2) CAD (coronary artery disease): Status: Acute Qualifiers: Associated angina: without angina Coronary Disease-Associated Artery/Lesion type: [place] artery [place] vs. transplanted heart: [place] heart Qualified Code(s): I25.10 - Atherosclerotic heart disease of [place] coronary artery without angina pectoris Category: Medical Code(s): I25.10 - Atherosclerotic heart disease of [place] coronary artery without angina pectoris (3) CKD (chronic kidney disease): Status: Acute Qualifiers: Chronic kidney disease stage: stage 3 (moderate) Chronic kidney disease stage 3 subtype: stage 3b (GFR 30-44) Qualified Code(s): N18.32 - Chronic kidney disease, stage 3b Category: Medical Code(s): N18.9 - Chronic kidney disease, unspecified (4) AICD (automatic cardioverter/defibrillator) present: Status: Acute Category: Surgical Code(s): Z95.810 - Presence of automatic (implantable) cardiac defibrillator (5) Insulin dependent diabetes mellitus: Status: Acute Category: Medical (6) S/P CABG (coronary artery bypass graft): Problem Comment: Cardiology is following. Status: Chronic Category: Surgical Code(s): Z95.1 - Presence of aortocoronary bypass graft (7) PAF (paroxysmal atrial fibrillation): Problem Comment: Patient is following with cardiology. Status: Acute Category: Medical Code(s): I48.0 - Paroxysmal atrial fibrillation (8) HLD (hyperlipidemia): Status: Acute Qualifiers: Hyperlipidemia type: mixed hyperlipidemia Qualified Code(s): E78.2 - Mixed hyperlipidemia Category: Medical Code(s): E78.5 - Hyperlipidemia, unspecified (9) HTN (hypertension): Status: Acute Qualifiers: Hypertension type: essential hypertension Qualified Code(s): I10 - Essential (primary) hypertension Category: Medical Code(s): I10 - Essential (primary) hypertension Plan Plan: 1. The patient was admitted to the hospital with acute on chronic HFrEF. The patient had an echocardiogram which shows that his ejection fraction has reduced to approximately 15%. In March of this year the patient's ejection fraction was 40%. He now has severe TR as well. The patient needs more aggressive diuresis due to his acute HFrEF. Stop IV Bumex and switch to a Bumex drip at 1 mg/hr for more aggressive diuresis. 2. Will increase his spironolactone to 50 mg p.o. daily for more diuresis. 3. Continue Jardiance, lisinopril and carvedilol for his HFrEF. 4. Continue verquvo for HFrEF. 6. The patient does have a history of coronary artery disease. He denies any chest pain or pressure. His troponin is negative. No plans for invasive left cardiac catheterization at this time. Last cath in February 2022 showed patent coronary artery disease. Continue Plavix. 7. The patient does have paroxysmal atrial fibrillation. He is on Eliquis for long-term anticoagulation. 8. His blood pressure is well-controlled. 9. His LDL goal is less than 55. His LDL was less than 30 in September 2023. He is on a statin. 10. Further recommendations were made pending the patient's response to treatment. Thank you for the opportunity to help dissipate the care of this patient. All recommendations and orders are per Dr. Tarango.
--- NOTE | 2023-11-06 14:10 | [facility].PTWOUND ---
Rehab Inpt Wound Evaluation Rehab IP Wound Evaluation Start: 11/05/23 17:47 Freq: ONCE Status: Active Protocol: Document 11/06/23 13:54 JESUS (Rec: 11/06/23 14:10 PHOMARINO [id number]) Rehab PT Wound Assessment Subjective Subjective 58-year-old male with history of CABG, heart failure with reduced ejection fraction, CKD , diabetes. He presents with chronic B lower leg wounds. He stats, They start as blisters, then they pop and I get these sores, then they dry up and it starts all over again. His LE edema appears to be directly related to his CHF with 3+ pitting edema noted to B thighs and upper legs. Wound Left Anterior Race Wound Type Stasis Ulcer Is This a Chronic Wound Yes Wound Length (cm) 2.5 Wound Width (cm) 3.0 Wound Depth (cm) 0.1 Wound Bed Appearance [place] Surrounding Tissue Appearance [place] Wound Drainage Description Serous Drainage Amount Small Primary Dressing Non-Adherent Gauze Pad Wound Secondary Dressing Type Gauze Roll/Wrap Wound Debridement Method Gauze,Mechanical Wound Debridement Amount of Tissue None Removed Dressing Change Patient Tolerance Tolerated Well Right Anterior Arce Wound Type Stasis Ulcer Is This a Chronic Wound Yes Wound Length (cm) 4.0 Wound Width (cm) 2.8 Wound Depth (cm) 0.1 Wound Bed Appearance [place] Wound Margins Description Well Defined Surrounding Tissue Appearance [place] Wound Drainage Description Serous Drainage Amount Small Primary Dressing Non-Adherent Gauze Pad Wound Secondary Dressing Type Gauze Roll/Wrap Wound Debridement Method Gauze,Mechanical Wound Debridement Amount of Tissue None Removed Dressing Change Patient Tolerance Tolerated Well Plan/Recommendation Comment Pt has been caring for his chronic wounds at home prior to adm. Current regimen appears appropriate unless wound status changes with increased drainage. It appears the pt suffers from lipodermatosclerosis to B lower legs as a result of his chronic edema. No further needs identified for inpatient wound care at this dylon. Pt to continue dressing changes as previous once d/c from the hospital. Eval Complexity Eval Charge Codes 17995 - High Complexity PHYSICIAN CERTIFICATION: I certify the specified therapy services for Matthew Zayas are required, authorized, and reviewed every 30 days.
--- NOTE | 2023-11-06 15:17 | EXP.ACUTE.PN ---
Subjective *Date: 11/06/23 *Time: 15:17 Interval history: Patient does not feel any better. Stable on room air. Diuresing fairly well, -4 L since admission. Cardiology evaluating today. Still has significant edema in his abdomen, lower back, thighs. Tolerating p.o. intake. Ambulating with walker. Medical Exam Vital signs and Labs for Last 24 Hours: Vital Signs Temp Pulse Pulse Resp BP Pulse Ox O2 Del Method 11/06/23 13:00 Room Air 11/06/23 12:00 62 11/06/23 12:00 97.5 F L 64 18 128/73 97 Room Air 11/06/23 11:00 Room Air 11/06/23 09:00 Room Air 11/06/23 08:00 61 11/06/23 08:00 Room Air 11/06/23 08:00 99.5 F 63 18 125/75 97 Room Air 11/06/23 07:00 Room Air 11/06/23 05:00 Room Air 11/06/23 04:00 98.0 F 64 16 139/80 95 Room Air 11/06/23 04:00 63 11/06/23 03:00 Room Air 11/06/23 01:00 Room Air 11/06/23 00:00 65 11/05/23 23:00 Room Air 11/05/23 21:00 Room Air 11/05/23 20:00 97.8 F 62 18 127/70 95 Room Air 11/05/23 20:00 Room Air 11/05/23 20:00 66 11/05/23 18:47 Room Air 11/05/23 17:00 Room Air 11/05/23 16:00 60 11/05/23 16:00 98.3 F 60 18 112/69 97 Room Air Intake and Output 11/05/23 11/06/23 11/06/23 23:59 07:59 15:59 Intake Total 250 / 610 360 / 610 Output Total 500 / 2150 1000 / 2850 1850 / 2850 Balance -500 / -900 -750 / -2240 -1490 / -2240 Intake: Intake, Oral Amount 250 / 610 360 / 610 Output: Output, Urine Amount 500 / 2150 1000 / 2850 1850 / 2850 Other: Number of Voids 2 Number of Unmeasured Voids 0 Number of Bowel Movements 1 1 Weight 99.019 kg 99 kg Patient Weight 11/06/23 23:59 Weight 99 kg Laboratory Results - last 24 hr 11/05/23 15:41: POC Glucose 147 H 11/05/23 18:45: Sodium 137, Potassium 4.5, Chloride 102, Carbon Dioxide 32 H, Anion Gap 7.5, BUN 23 H, Creatinine 2.00 H, Estimated Creat Clear 53, Estimated GFR 34 L, Est GFR ( Amer) 41 L, Glucose 192 H D, Calcium 8.7 11/06/23 06:59: WBC 5.8, RBC 3.79 L, Hgb 9.9 L, Hct 34.5 L, MCV 90.9, MCH 26.2 L, MCHC 28.8 L, RDW 18.0 H, Plt Count 273, MPV 8.7, Neut % (Auto) 69.8, Lymph % (Auto) 17.3, [place] % (Auto) 9.0, Eos % (Auto) 3.1, Baso % (Auto) 0.7, Neut # (Auto) 4.1, Lymph # (Auto) 1.0, [place] # (Auto) 0.5, Eos # (Auto) 0.2, Baso # (Auto) 0.0, Sodium 139, Potassium 4.7, Chloride 102, Carbon Dioxide 32 H, Anion Gap 9.7, BUN 23 H, Creatinine 2.10 H, Estimated Creat Clear 52, Estimated GFR 32 L, Est GFR ( Amer) 39 L, Glucose 72 L D, Calcium 8.8, Magnesium 2.1, Total Bilirubin 1.3, AST 25, ALT 13, Alkaline Phosphatase 253 H, Total Protein 6.8, Albumin 3.3 L, Globulin 3.5 H, Albumin/Globulin Ratio 0.9 L 11/06/23 11:32: POC Glucose 82 I & O for Labs for Last 24 Hours: Intake & Output 11/03/23 11/04/23 11/05/23 11/06/23 23:59 23:59 23:59 23:59 Intake Total 1940 / 0 1000 / 1250 610 / 610 Output Total 1999 2150 / 215 2850 / 2850 Balance -1999 / -1700 -90 / 110 -1150 / -900 -2240 / -2240 Weight 98.685 kg 99.536 kg 95.073 kg 99 kg Constitutional: Present no acute distress and chronically ill appearing Head: Present atraumatic and normocephalic ENT: Present normal exam Neck: Present normal inspection Respiratory: Present crackles (minor in bases) and normal respiratory effort; Absent rhonchi or wheezes Cardiac: Present Reg Rate and Rhythm GI: Present soft and normal bowel sounds; Absent distention or tenderness Extremities: Present normal inspection, full ROM and edema (3+ to abdominal wall) Skin: Present erythema; Absent intact Comment:: Wounds present on legs, decreased weeping. Improving erythema. Neuro: Present Grossly Intact, alert, awake, oriented x 3 and moves all extremities Assessment and Plan *Assessment and plan (1) Acute exacerbation of CHF (congestive heart failure): Status: Acute Category: Medical Code(s): I50.9 - Heart failure, unspecified (2) NYHA class 3 heart failure with reduced ejection fraction: Status: Acute Category: Medical Code(s): I50.20 - Unspecified systolic (congestive) heart failure (3) Chronic kidney disease, stage 3a: Status: Acute Category: Medical Code(s): N18.31 - Chronic kidney disease, stage 3a (4) S/P CABG (coronary artery bypass graft): Problem Comment: Cardiology is following. Status: Chronic Category: Surgical Code(s): Z95.1 - Presence of aortocoronary bypass graft (5) PAF (paroxysmal atrial fibrillation): Problem Comment: Patient is following with cardiology. Status: Acute Category: Medical Code(s): I48.0 - Paroxysmal atrial fibrillation (6) CAD (coronary artery disease): Status: Acute Qualifiers: Coronary Disease-Associated Artery/Lesion type: [place] artery [place] vs. transplanted heart: [place] heart Associated angina: without angina Qualified Code(s): I25.10 - Atherosclerotic heart disease of [place] coronary artery without angina pectoris Category: Medical Code(s): I25.10 - Atherosclerotic heart disease of [place] coronary artery without angina pectoris (7) GERD (gastroesophageal reflux disease): Status: Inactive Category: Medical Code(s): K21.9 - Gastro-esophageal reflux disease without esophagitis (8) Tobacco dependence syndrome: Status: Acute Category: Medical Code(s): F17.200 - Nicotine dependence, unspecified, uncomplicated (9) HLD (hyperlipidemia): Status: Acute Qualifiers: Hyperlipidemia type: mixed hyperlipidemia Qualified Code(s): E78.2 - Mixed hyperlipidemia Category: Medical Code(s): E78.5 - Hyperlipidemia, unspecified (10) HTN (hypertension): 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 reports about a 25 pound weight gain. Found to have acute exacerbation of his chronic CHF. Discussed case with ER, request admission for diuresis. I agreed to admit for further management. Concern for abdominal distention. Continue Bumex. -2.5 L since admission. Strict I's and O's. Continues to require inpatient management due to level of volume overload. Problems addressed as follows: Acute on chronic HFrCHF NYHA class III heart failure History of CABG x 4 Paroxysmal A-fib Hyperlipidemia - Repeat echo obtained this visit showing reduced EF of 15%. Down from 40% in March. - Increase aggressive diuresis to Bumex drip, 1 mg/h. Increase spironolactone to 50 mg daily. Continue Jardiance, lisinopril, carvedilol for heart failure with reduced ejection fraction. -Resume Verquvo - Discussed case with cardiology, recommend treatment as above. Will continue to follow along daily. --4 L since admission. -Repeat CBC, CMP, magnesium ordered for the morning. BMP ordered for this afternoon. -Drug therapy requiring close monitoring for toxicity with diuresis -AICD in place, monitor on continuous telemetry. -Supplemental oxygen as needed, goal sats greater 90%. currently on RA CKD III - Potassium 4.7, magnesium 2.1, BUN 23, creatinine 2.1. Baseline kidney function at this time. Constipation: -Continue docusate/senna twice daily scheduled. Will consider enema in the morning if no bowel movement. -CT of abdomen pelvis obtained showing concern for cirrhosis with anasarca and small ascites. Type 2 diabetes -Insulin-dependent. A1c earlier this month 7.9. Continue glargine 15 units nightly, decreased to avoid hypoglycemia. Continue sliding scale insulin with fingersticks ACHS. -Morning glucose 105 Continued home Wellbutrin for mood Full code Cardiac diet Apixaban 5 mg twice daily
[2023-11-06 16:00] VITALS: BP 135/80; PULSE 70; RESP 18; TEMP 36.7; O2SAT 95
[2023-11-06] MEDS: SPIRONOLACTONE 25MG TABLET 50 MG PO (16:58)
[2023-11-06 17:11] LABS: POC Glucose,Bedside 138 (70-110)
--- NOTE | 2023-11-06 17:41 | PC.NURSE ---
Addendum entered by Monica Weiss RN 11/06/23 17:46: pt had a moderate BM today. abd still round and distended. Original Note: patient is a/o x4 and tolerating room air well. PT changed bilateral lower leg dressings this AM. pt has voiding throughout shift via urinal. bumex drip currently at 10 mls/hr. no insulin given per sliding scale. no further requests at this time call light within reach.
[2023-11-06 19:00] LABS: Chloride 99 mmol/L (98-107); Potassium 5.4 mmoL/L (3.5-5.1); Sodium 137 mmol/L (136-145)
[2023-11-06 19:03] LABS: Anion Gap 8.4 mEq/L (5-15); Blood Urea Nitrogen 26 mg/dl (9-20); Calcium 9.4 mg/dl (8.4-10.2); Carbon Dioxide 35 mmol/L (22.0-30.0); Creatinine Clearance Estimated 44 mL/min (50-200); Estimated Glomerular Filt Rate 26 ml/min (>60); GFR (African American) 32 ML/MIN (>60); Glucose 141 mg/dl (74-100)
[2023-11-06 20:00] VITALS: BP 125/73; PULSE 70; PULSE 74; RESP 18; TEMP 36.8; O2SAT 98
[2023-11-06] MEDS: PANTOPRAZOLE 40MG TABLET 40 MG PO (20:49)
[2023-11-06] MEDS: ATORVASTATIN 40MG TABLET 80 MG PO (20:49)
[2023-11-06] MEDS: humaLOG 100 UNITS/ML 10ML VIAL (SSI) SQ (20:55)
[2023-11-06] MEDS: INSULIN GLARGINE 100 UNITS/ML 3ML FLEXPEN 15 UNIT SQ (20:55)
[2023-11-06 21:26] LABS: POC Glucose,Bedside 289 (70-110)
[2023-11-06] MEDS: OXYCODONE 5MG W/APAP 325MG TABLET 1 EACH PO (21:40)
--- NOTE | 2023-11-06 21:47 | PC.NURSE ---
changed bandaids on patients BLE r/t burning - pain meds per MAR
[2023-11-07] VITALS: BP 116/70; PULSE 60; PULSE 68; RESP 20; TEMP 36.6; O2SAT 95
[2023-11-07 04:00] VITALS: BP 111/63; PULSE 60; RESP 18; O2SAT 97; BMI 30.9
--- NOTE | 2023-11-07 04:55 | PC.NURSE ---
pt temperature would not read orally or axillary. pt was asked if we could do a rectal. pt refused. nurse notified. will attempt temperature again later.
[2023-11-07 05:39] LABS: POC Glucose,Bedside 250 (70-110)
[2023-11-07 05:48] LABS: POC Glucose,Bedside 65 (70-110)
[2023-11-07 05:48] LABS: POC Glucose,Bedside 79 (70-110)
[2023-11-07 05:48] LABS: POC Glucose,Bedside 168 (70-110)
[2023-11-07] MEDS: humaLOG 100 UNITS/ML 10ML VIAL (SSI) SQ ×2 (05:50→11:30)
[2023-11-07] MEDS: FLUTICASONE/SALMETEROL 250/50MCG DISKUS 1 PUFF IH (06:22)
[2023-11-07] MEDS: BUMETANIDE 10 MG in 0.9 % SODIUM CHLORIDE 60 ML IV (07:18)
[2023-11-07 07:26] LABS: Alanine Aminotransferase 14 U/L (12-78); Albumin Level 3.6 g/dl (3.5-5.0); Albumin/Globulin Ratio 0.9 (1.1-1.8); Alkaline Phosphatase 268 U/L (38-126); Anion Gap 7.8 mEq/L (5-15); Aspartate Amino Transferase 35 U/L (17-59); Bilirubin,Total 1.6 mg/dl (0.2-1.3); Blood Urea Nitrogen 30 mg/dl (9-20); Calcium 9.7 mg/dl (8.4-10.2); Carbon Dioxide 35 mmol/L (22.0-30.0); Chloride 97 mmol/L (98-107); Creatinine Clearance Estimated 42 mL/min (50-200); Estimated Glomerular Filt Rate 26 ml/min (>60); GFR (African American) 32 ML/MIN (>60); Globulin 3.8 g/dL (1.3-3.2); Glucose 69 mg/dl (74-100); Potassium 4.8 mmoL/L (3.5-5.1); Sodium 135 mmol/L (136-145); Total Protein,Serum 7.4 g/dl (6.3-8.2)
[2023-11-07 08:00] VITALS: BP 106/57; PULSE 60; RESP 22; TEMP 36.5; O2SAT 97
[2023-11-07 08:14] LABS: Magnesium 2.3 mg/dl (1.6-2.3)
[2023-11-07] MEDS: APIXABAN 5MG TABLET 5 MG PO (08:36)
[2023-11-07] MEDS: TAMSULOSIN 0.4MG CAPSULE 0.4 MG PO (08:36)
[2023-11-07] MEDS: LISINOPRIL 20MG TABLET 20 MG PO (08:37)
[2023-11-07] MEDS: EMPAGLIFLOZIN 10MG TABLET 10 MG PO (08:37)
[2023-11-07] MEDS: SPIRONOLACTONE 25MG TABLET 50 MG PO (08:38)
[2023-11-07] MEDS: CARVEDILOL 12.5MG TABLET 12.5 MG PO (08:39)
[2023-11-07] MEDS: SENNOSIDES 8.6MG/DOCUSATE 50MG TABLET 1 TAB PO (08:39)
[2023-11-07] MEDS: POTASSIUM CHLORIDE 20MEQ TAB 40 MEQ PO ×2 (08:39→13:07)
[2023-11-07] MEDS: CLOPIDOGREL 75MG TAB 75 MG PO (08:39)
[2023-11-07] MEDS: buPROPion HCl SR 150MG TAB 150 MG PO (08:40)
[2023-11-07] MEDS: VERICIGUAT 2.5 MG PO (08:42)
[2023-11-07 11:30] LABS: POC Glucose,Bedside 184 (70-110)
--- NOTE | 2023-11-07 11:51 | EXP.CARD.PN ---
Subjective Subjective Date: 11/07/23 Time: 09:30 Principal diagnosis: HFrEF Interval history: This is a 58-year-old gentleman who presented to the emergency department with complaints of edema and 25 pound weight gain. He has been diuresed with a Bumex drip. This morning he states he is feeling much better. He denies any chest pain or pressure. He denies any shortness of breath or lower extremity edema. He states his abdominal edema has significantly improved overnight. He denies any fever, chills, nausea, vomiting or diarrhea. Exam Data for Last 24 hours Vital signs and Labs for Last 24 Hours: Temp Pulse Resp BP Pulse Ox O2 Del Method 97.7 F 60 22 106/57 L 97 Room Air 11/07/23 08:00 11/07/23 08:00 11/07/23 08:00 11/07/23 08:00 11/07/23 08:00 11/07/23 11:00 Laboratory Results - last 24 hr 11/05/23 20:28: POC Glucose 168 H 11/06/23 05:28: POC Glucose 65 L 11/06/23 05:51: POC Glucose 79 11/06/23 16:57: POC Glucose 138 H 11/06/23 18:15: Sodium 137, Potassium 5.4 H, Chloride 99, Carbon Dioxide 35 H, Anion Gap 8.4, BUN 26 H, Creatinine 2.50 H, Estimated Creat Clear 44, Estimated GFR 26 L, Est GFR ( Amer) 32 L, Glucose 141 H D, Calcium 9.4 11/06/23 20:54: POC Glucose 289 H 11/07/23 05:29: POC Glucose 250 H 11/07/23 06:34: Sodium 135 L, Potassium 4.8, Chloride 97 L, Carbon Dioxide 35 H, Anion Gap 7.8, BUN 30 H, Creatinine 2.50 H, Estimated Creat Clear 42, Estimated GFR 26 L, Est GFR ( Amer) 32 L, Glucose 69 L D, Calcium 9.7, Magnesium 2.3, Total Bilirubin 1.6 H, AST 35 D, ALT 14, Alkaline Phosphatase 268 H, Total Protein 7.4, Albumin 3.6, Globulin 3.8 H, Albumin/Globulin Ratio 0.9 L 11/07/23 11:19: POC Glucose 184 H I & O for Last 24 hours: Intake & Output 09/14/24 09/15/24 09/16/24 09/17/24 23:59 23:59 23:59 23:59 Intake Total 1939 / 0 1000 / 1250 1449 / 1449 460 / 460 Output Total 2029 / 2149 8050 / 8750 4950 / 4950 Balance -90 / 110 -1150 / -900 -6601 / -7301 -4490 / -4490 Weight 219 lb 7.022 oz 209 lb 9.6 oz 218 lb 4.122 oz 208 lb 8 oz Constitutional Constitutional: no acute distress and obese *Routine HEENT Exam Head: Present normocephalic and atraumatic ENT: Present mucous membranes moist *Routine Neck Exam Neck: Present supple, full ROM and normal carotid upstroke; Absent JVD, carotid bruit or lymphadenopathy *Routine Respiratory Exam Respiratory: Present CTA bilaterally, normal respiratory effort, able to speak in complete sentences and symmetric chest movement *Routine Cardiovascular Exam Cardiovascular: Present RRR, Normal S1 and Normal S2; Absent murmur or gallop *Routine Abdominal Exam Abdominal: Present normoactive bowel sounds and firm; Absent tenderness or organomegaly *Routine Extremities Exam Extremities: Present full ROM, pulses intact and normal capillary refill; Absent cyanosis, clubbing or edema *Routine Skin Exam Skin: Present intact and warm; Absent erythema *Routine Neurological Exam Neurological: Present alert, oriented X3 and CN II-XII intact; Absent sensory deficit or motor deficit Routine Psychiatric Exam Psychiatric: Present normal affect Progress Note: A&P Assessment and plan (1) Acute on chronic HFrEF (heart failure with reduced ejection fraction): Status: Acute (2) CAD (coronary artery disease): Status: Acute (3) Chronic kidney disease, stage 3a: Status: Acute (4) S/P CABG (coronary artery bypass graft): Problem details: Cardiology is following. Status: Chronic (5) PAF (paroxysmal atrial fibrillation): Problem details: Patient is following with cardiology. Status: Acute (6) GERD (gastroesophageal reflux disease): Status: Inactive (7) Tobacco dependence syndrome: Status: Acute (8) HLD (hyperlipidemia): Status: Acute (9) HTN (hypertension): Status: Acute (10) Diabetes: Status: Inactive (11) Volume overload: Status: Acute (12) Anasarca: Status: Acute (13) AICD (automatic cardioverter/defibrillator) present: Status: Acute Assessment and Plan Assessment and Plan for All Diagnoses:: Plan: 1. The patient was admitted to the hospital with acute on chronic HFrEF. The patient had an echocardiogram which shows that his ejection fraction has reduced to approximately 15%. In March of this year the patient's ejection fraction was 40%. He now has severe TR as well. Patient was switched to a Bumex drip at 1 mg/hr for more aggressive diuresis yesterday. He has a -9 L fluid balance overnight. 2. Continue spironolactone. 3. Continue Jardiance, lisinopril and carvedilol for his HFrEF. 4. Continue verquvo for HFrEF. 6. The patient does have a history of coronary artery disease. He denies any chest pain or pressure. His troponin is negative. No plans for invasive left cardiac catheterization at this time. Last cath in February 2022 showed patent coronary artery disease. Continue Plavix. He may benefit from an ischemic evaluation on an outpatient basis since he does have an interval reduction in his ejection fraction. 7. The patient does have paroxysmal atrial fibrillation. He is on Eliquis for long-term anticoagulation. 8. His blood pressure is well-controlled. 9. His LDL goal is less than 55. His LDL was less than 30 in September 2023. He is on a statin. 10. The patient's anasarca has improved today. Hopefully with the improvement in his anasarca he will be able to absorb his oral Bumex better as long as the patient stays compliant with his medications. 11. No further recommendations at this time from a cardiac standpoint. The patient can be discharged home today on the following cardiac medications: Eliquis 5 mg p.o. twice daily, atorvastatin 80 mg p.o. nightly, Bumex 4 mg p.o. daily, Coreg 12.5 mg p.o. twice daily, Plavix 75 mg daily, Jardiance 10 mg daily, lisinopril 20 mg daily, Protonix 40 mg daily, spironolactone 50 mg daily and Verquvo 2.5 mg p.o. daily Thank you for the opportunity to help participate the care of this patient. All recommendations and orders are per Dr. Tarango.
[2023-11-07 12:00] VITALS: BP 123/54; PULSE 60; RESP 19; TEMP 36.8; O2SAT 100
[2023-11-07 14:13] LABS: Chloride 97 mmol/L (98-107); Sodium 134 mmol/L (136-145)
[2023-11-07 14:16] LABS: Blood Urea Nitrogen 34 mg/dl (9-20); Creatinine Clearance Estimated 44 mL/min (50-200); Estimated Glomerular Filt Rate 28 ml/min (>60); GFR (African American) 34 ML/MIN (>60)
[2023-11-07 14:17] LABS: Calcium 9.1 mg/dl (8.4-10.2); Carbon Dioxide 35 mmol/L (22.0-30.0); Glucose 155 mg/dl (74-100)
[2023-11-07 16:00] VITALS: PULSE 70
--- NOTE | 2023-11-07 16:10 | EXP.DC.SUM ---
General Admission date:: 11/03/23 HPI HPI HPI: Mr. Zayas is a 58-year-old male with history of CABG, heart failure with reduced ejection fraction, CKD, diabetes. Presents with significant fluid overload and swelling in his abdomen. reports that he has gained approximately 25 pounds over the past month and she has been unable to get the fluid off using their home regimen. He has had swelling in his thighs, lower back and abdomen. Reports some shortness of breath but is stable on room air. Dry weight reportedly under 95 pounds but patient's weight is up to 220 pounds this morning. No nausea or vomiting. No fever or chills. No chest pain. Having 300 to 600 cc urine output per time when he takes his Bumex at home. She was concern for volume overload. BNP elevated at 7500 on arrival. Medicine consulted for admission to assist with diuresis and further workup. On arrival to the floor, patient appears uncomfortable with significantly distended abdomen. Having some tenderness with abdomen. Denies any nausea or vomiting. Reports he has not had a bowel movement in a week. Responding well to IV Bumex. Has put out 800 cc since admission. Hospital Course Hospital Course Hospital Course: 58-year-old status post CABG x4 who presented to the ER because of worsening shortness of breath and swelling in his abdomen. Acute on chronic HFrEF History of CABG x 4 - Repeat ECHO obtained this visit showing reduced EF of 15%. Down from 40% in March. - Volume overload improved with aggressive dieuresis with Bumex drip. - Cardiology consulted, did not recommend inpatient ischemic workup as patient denied chest pain, and negative troponins. Recommend outpatient workup. - Patient already has an AICD. - Discharged with regiment of aspirin 81mg, Plavix 85mg, Bumex 4mg (encouraged adherence), spirinolactone 50mg, Coreg 12.5 mg p.o. twice daily, Jardiance 10 mg daily, lisinopril 20 mg daily, and Verquvo 2.5 mg p.o. daily. - Will follow-up with cardiology within a week. Exam Data for Last 24 hours Vital signs and Labs for Last 24 Hours: Temp Pulse Resp BP Pulse Ox O2 Del Method 98.2 F 60 19 123/54 L 100 Room Air 11/07/23 12:00 11/07/23 12:00 11/07/23 12:00 11/07/23 12:00 11/07/23 12:00 11/07/23 15:00 Laboratory Results - last 24 hr 11/05/23 20:28: POC Glucose 168 H 11/06/23 05:28: POC Glucose 65 L 11/06/23 05:51: POC Glucose 79 11/06/23 16:57: POC Glucose 138 H 11/06/23 18:15: Sodium 137, Potassium 5.4 H, Chloride 99, Carbon Dioxide 35 H, Anion Gap 8.4, BUN 26 H, Creatinine 2.50 H, Estimated Creat Clear 44, Estimated GFR 26 L, Est GFR ( Amer) 32 L, Glucose 141 H D, Calcium 9.4 11/06/23 20:54: POC Glucose 289 H 11/07/23 05:29: POC Glucose 250 H 11/07/23 06:34: Sodium 135 L, Potassium 4.8, Chloride 97 L, Carbon Dioxide 35 H, Anion Gap 7.8, BUN 30 H, Creatinine 2.50 H, Estimated Creat Clear 42, Estimated GFR 26 L, Est GFR ( Amer) 32 L, Glucose 69 L D, Calcium 9.7, Magnesium 2.3, Total Bilirubin 1.6 H, AST 35 D, ALT 14, Alkaline Phosphatase 268 H, Total Protein 7.4, Albumin 3.6, Globulin 3.8 H, Albumin/Globulin Ratio 0.9 L 11/07/23 11:19: POC Glucose 184 H 11/07/23 14:00: Sodium 134 L, Potassium 5.0, Chloride 97 L, Carbon Dioxide 35 H, Anion Gap 7.0, BUN 34 H, Creatinine 2.40 H, Estimated Creat Clear 44, Estimated GFR 28 L, Est GFR ( Amer) 34 L, Glucose 155 H D, Calcium 9.1 Temp Pulse Resp BP Pulse Ox O2 Del Method 96.3 F L 60 18 111/59 L 97 Room Air 04/17/23 11:54 04/17/23 11:54 04/17/23 11:54 04/17/23 11:54 04/17/23 11:54 04/17/23 11:54 Laboratory Results - last 24 hr 04/16/23 16:29: POC Glucose 184 H 04/16/23 18:12: Sodium 133 L, Potassium 4.4, Chloride 94 L, Carbon Dioxide 32 H, Anion Gap 11.4, BUN 59 H, Creatinine 3.20 H, Estimated Creat Clear 38, Estimated GFR 20 L, Est GFR ( Amer) 24 L, Glucose 178 H D, Calcium 9.8 04/16/23 20:02: POC Glucose 246 H 04/17/23 05:46: WBC 8.2, RBC 3.41 L, Hgb 10.0 L, Hct 31.4 L, MCV 91.9, MCH 29.3, MCHC 31.8, RDW 18.8 H, Plt Count 279, MPV 8.3, Neut % (Auto) 68.9, Lymph % (Auto) 19.9, [place] % (Auto) 8.7, Eos % (Auto) 2.2, Baso % (Auto) 0.3, Neut # (Auto) 5.6, Lymph # (Auto) 1.6, [place] # (Auto) 0.7, Eos # (Auto) 0.2, Baso # (Auto) 0.0, Sodium 135 L, Potassium 4.4, Chloride 96 L, Carbon Dioxide 34 H, Anion Gap 9.4, BUN 66 H, Creatinine 3.00 H, Estimated Creat Clear 41, Estimated GFR 22 L, Est GFR ( Amer) 26 L, Glucose 60 L D, Calcium 9.6, Magnesium 2.2, Total Bilirubin 1.0, AST 85 H, ALT 50, Alkaline Phosphatase 246 H, Total Protein 7.2, Albumin 3.6, Globulin 3.6 H, Albumin/Globulin Ratio 1.0 L 04/17/23 05:53: POC Glucose 99 04/17/23 07:57: Vancomycin Trough 21.0 H 04/17/23 11:37: POC Glucose 251 H I & O for Last 24 hours: Intake & Output 11/04/23 11/05/23 11/06/23 11/07/23 23:59 23:59 23:59 23:59 Intake Total 1939 / 2139 1000 / 1250 1449 / 1449 460 / 460 Output Total 2029 8050 / 8750 4950 / 4950 Balance -90 / 110 -1150 / -900 -6601 / -7301 -1820 / -4490 Weight 99.536 kg 95.073 kg 99 kg 94.574 kg Intake & Output 04/14/23 04/15/23 04/16/23 04/17/23 23:59 23:59 23:59 23:59 Intake Total 2585.583 / 2727.583 1933 / 1933 1740 / 2200 760 / 760 Output Total 4800 / 4800 9200 / 9200 5325 / 5775 2825 / 2825 Balance -2214.417 / -2072.417 -7267 / -7267 -3585 / -3575 -2065 / -2065 Weight 108.522 kg 108.522 kg 108.522 kg Microbiology Reports for the Last 24 Hours: Microbiology 04/14/23 06:35 Blood Blood Culture - Preliminary 04/14/23 06:35 Blood Blood Culture - Preliminary Constitutional Constitutional: no acute distress and chronically ill appearing *Routine HEENT Exam Head: Present normocephalic and atraumatic ENT: Present mucous membranes moist *Routine Neck Exam Neck: Present supple Routine Chest/Breast/Axilla Exam Chest wall: Absent tenderness *Routine Respiratory Exam Respiratory: Present CTA bilaterally and normal respiratory effort; Absent rhonchi, wheezes or crackles *Routine Cardiovascular Exam Cardiovascular: Present RRR *Routine Abdominal Exam Abdominal: Present soft and normoactive bowel sounds *Routine Rectal Exam Patient deferred: visual exam *Routine Exam Patient deferred: penile exam *Routine Extremities Exam Extremities: Present edema (1+ BLE); Absent cyanosis or clubbing *Routine Skin Exam Skin: Present intact; Absent cyanosis, erythema or pallor *Routine Neurological Exam Neurological: Present alert, oriented X3, CN II-XII intact, moving all extremities and normal speech; Absent altered mental status Results Data Completed and Pending Labs on day of discharge: Labs from last 24 hours 11/07/23 11/07/23 11/07/23 14:00 11:19 06:34 Sodium 134 L 135 L Potassium 5.0 4.8 Chloride 97 L 97 L Carbon Dioxide 35 H 35 H Anion Gap 7.0 7.8 BUN 34 H 30 H Creatinine 2.40 H 2.50 H Estimated Creat Clear 44 42 Estimated GFR 28 L 26 L Est GFR ( Amer) 34 L 32 L Glucose 155 H D 69 L D POC Glucose 184 H Calcium 9.1 9.7 Magnesium 2.3 Total Bilirubin 1.6 H AST 35 D ALT 14 Alkaline Phosphatase 268 H Total Protein 7.4 Albumin 3.6 Globulin 3.8 H Albumin/Globulin Ratio 0.9 L 11/07/23 11/06/23 11/06/23 05:29 20:54 18:15 Sodium 137 Potassium 5.4 H Chloride 99 Carbon Dioxide 35 H Anion Gap 8.4 BUN 26 H Creatinine 2.50 H Estimated Creat Clear 44 Estimated GFR 26 L Est GFR ( Amer) 32 L Glucose 141 H D POC Glucose 250 H 289 H Calcium 9.4 Magnesium Total Bilirubin AST ALT Alkaline Phosphatase Total Protein Albumin Globulin Albumin/Globulin Ratio 11/06/23 11/06/23 11/06/23 16:57 05:51 05:28 Sodium Potassium Chloride Carbon Dioxide Anion Gap BUN Creatinine Estimated Creat Clear Estimated GFR Est GFR ( Amer) Glucose POC Glucose 138 H 79 65 L Calcium Magnesium Total Bilirubin AST ALT Alkaline Phosphatase Total Protein Albumin Globulin Albumin/Globulin Ratio 11/05/23 20:28 Sodium Potassium Chloride Carbon Dioxide Anion Gap BUN Creatinine Estimated Creat Clear Estimated GFR Est GFR ( Amer) Glucose POC Glucose 168 H Calcium Magnesium Total Bilirubin AST ALT Alkaline Phosphatase Total Protein Albumin Globulin Albumin/Globulin Ratio DS: Diagnosis Discharge Diagnosis (1) Acute on chronic HFrEF (heart failure with reduced ejection fraction): Status: Acute Code(s): I50.23 - Acute on chronic systolic (congestive) heart failure (2) CAD (coronary artery disease): Status: Acute Code(s): I25.10 - Atherosclerotic heart disease of [place] coronary artery without angina pectoris Qualifiers: Associated angina: without angina Coronary Disease-Associated Artery/Lesion type: [place] artery [place] vs. transplanted heart: [place] heart Qualified Code(s): I25.10 - Atherosclerotic heart disease of [place] coronary artery without angina pectoris (3) Chronic kidney disease, stage 3a: Status: Acute Code(s): N18.31 - Chronic kidney disease, stage 3a (4) S/P CABG (coronary artery bypass graft): Status: Chronic Code(s): Z95.1 - Presence of aortocoronary bypass graft Problem details: Cardiology is following. (5) PAF (paroxysmal atrial fibrillation): Status: Acute Code(s): I48.0 - Paroxysmal atrial fibrillation Problem details: Patient is following with cardiology. (6) Tobacco dependence syndrome: Status: Acute Code(s): F17.200 - Nicotine dependence, unspecified, uncomplicated (7) HLD (hyperlipidemia): Status: Acute Code(s): E78.5 - Hyperlipidemia, unspecified Qualifiers: Hyperlipidemia type: mixed hyperlipidemia Qualified Code(s): E78.2 - Mixed hyperlipidemia (8) HTN (hypertension): Status: Acute Code(s): I10 - Essential (primary) hypertension Qualifiers: Hypertension type: essential hypertension Qualified Code(s): I10 - Essential (primary) hypertension (9) Volume overload: Status: Acute Code(s): E87.70 - Fluid overload, unspecified (10) Anasarca: Status: Acute Code(s): R60.1 - Generalized edema (11) AICD (automatic cardioverter/defibrillator) present: Status: Acute Code(s): Z95.810 - Presence of automatic (implantable) cardiac defibrillator Meds Home Medications and Allergies Home Medications ?Medication ?Instructions ?Recorded ?Confirmed ?Type mecobalamin (vitamin B12) 1,000 1,000 mcg PO DAILY Supplement 02/10/23 11/08/23 History mcg chewable tablet nitroglycerin 0.4 mg sublingual 0.4 mg sublingual Q5MINP PRN chest 02/10/23 11/08/23 History tablet pain carvedilol 12.5 mg tablet 12.5 mg PO BID 05/10/23 11/08/23 History tamsulosin 0.4 mg capsule 0.4 mg PO DAILY #30 caps 06/26/23 11/08/23 Rx albuterol sulfate 90 mcg/actuation 2 puff inhalation QIDP PRN 07/05/23 11/08/23 Rx aerosol inhaler shortness of breath or wheezing #8.5 grams budesonide-formoterol HFA 160 1 inh inhalation BID #10.2 grams 07/05/23 11/08/23 Rx mcg-4.5 mcg/actuation aerosol inhaler (Symbicort) omeprazole 40 mg capsule,delayed 40 mg PO DAILY Acid reflux #90 caps 09/04/23 11/08/23 Rx release insulin glargine 100 unit/mL (3 25 unit (0.25 mL) SQ HS Diabetes 10/02/23 11/08/23 Rx mL) subcutaneous pen (Lantus #15 mL Solostar U-100 Insulin) mupirocin 2 % topical ointment 1 applic topical TID #22 grams 10/02/23 11/08/23 Rx atorvastatin 80 mg tablet (Lipitor) 80 mg PO DAILY #30 tabs 10/20/23 11/08/23 Rx apixaban 5 mg tablet (Eliquis) 5 mg PO Q12H Blood Thinner #60 tabs 10/30/23 11/08/23 Rx empagliflozin 10 mg tablet 10 mg PO DAILY #90 tabs 10/30/23 11/08/23 Rx oxycodone-acetaminophen 5 mg-325 1 tab PO TID PRN pain #45 tabs 10/30/23 11/08/23 Rx mg tablet (Percocet) coenzyme Q10 100 mg capsule 100 mg PO DAILY 11/03/23 11/08/23 History (CoQ-10) bumetanide 2 mg tablet 4 mg (2 x 2 mg) PO BID #180 tabs 11/08/23 11/08/23 Rx clopidogrel 75 mg tablet (Plavix) 75 mg PO DAILY #30 tabs 11/08/23 11/08/23 Rx lisinopril 20 mg tablet 20 mg PO DAILY #30 tabs 11/08/23 11/08/23 Rx spironolactone 50 mg tablet 50 mg PO DAILY #90 tabs 11/08/23 11/08/23 Rx New Prescriptions to Start Prescriptions: clopidogrel [Plavix] Mal Huggins lisinopril Mal Huggins Allergies Allergy/AdvReac Type Severity Reaction Status Date / Time No Known Allergies Allergy Verified 11/08/23 14:51 Discharge Plan Disposition Patient Disposition: Home, Self-Care Condition: Fair Discharge Order Discharge Orders: Discharge Order (Routine); Ordered 11/07/23 Ordered By: Mal Huggins Follow up Plan Follow up with: Darron Franz MD [Primary Care Provider] - 11/17/23 9:00 am Prescriptions/Medication Reconciliation: New lisinopril 20 mg tablet 20 mg PO DAILY Qty: 30 0RF clopidogrel [Plavix] 75 mg tablet 75 mg PO DAILY Qty: 30 0RF Continued carvedilol 12.5 mg tablet 12.5 mg PO BID Patient Comments: TAKE ONE TABLET BY MOUTH TWICE DAILY --TAKE WITH FOOD-- tamsulosin 0.4 mg capsule 0.4 mg PO DAILY Qty: 30 3RF albuterol sulfate 90 mcg/actuation HFA aerosol inhaler 2 puff inhalation QIDP PRN (Reason: shortness of breath or wheezing) Qty: 8.5 10RF budesonide-formoterol [Symbicort] 160-4.5 mcg/actuation HFA aerosol inhaler 1 inh inhalation BID Qty: 10.2 10RF omeprazole 40 mg capsule,delayed release(DR/EC) 40 mg PO DAILY Qty: 90 2RF mupirocin 2 % ointment 1 applic topical TID Qty: 22 10RF insulin glargine [Lantus Solostar U-100 Insulin] 100 unit/mL (3 mL) insulin pen 25 unit SQ HS Qty: 15 10RF oxycodone-acetaminophen [Percocet] 5-325 mg tablet 1 tab PO TID PRN (Reason: pain) Qty: 45 0RF Eliquis 5 mg tablet 5 mg PO Q12H Qty: 60 12RF empagliflozin 10 mg tablet 10 mg PO DAILY Qty: 90 3RF atorvastatin [Lipitor] 80 mg tablet 80 mg PO DAILY Qty: 30 5RF nitroglycerin 0.4 mg tablet, sublingual 0.4 mg sublingual Q5MINP PRN (Reason: chest pain) Rx Instructions: do not exceed 3 doses per episode mecobalamin (vitamin B12) 1,000 mcg tablet,chewable 1,000 mcg PO DAILY coenzyme Q10 [CoQ-10] 100 mg Capsule 100 mg PO DAILY Discontinued spironolactone 25 mg tablet 25 mg PO DAILY No Action spironolactone 50 mg tablet 50 mg PO DAILY Qty: 90 3RF bumetanide 2 mg tablet 4 mg PO BID Qty: 180 3RF Other Ambulatory Orders: Basic Metabolic Panel (Routine) Timeframe: 3 Days Facility: [facility] - Location: Laboratory Ordered By: Mal Huggins Problem Reconciliation Problems Reviewed?: Yes Patient Discharge Instructions ACTIVITY: Ambulate as tolerated DIET: cardiac Additional Instructions: Please follow-up with cardiology within 1 week. Obtain repeat labs within 3 days to recheck kidney function. Patient Instructions: DI for Heart Failure Print Language: Ch[place] Providers Primary Care Provider: Darron Franz Admit Provider: Matthew Mccarthy Attending Provider: Matthew Mccarthy
--- NOTE | 2023-11-08 14:04 | CARE MANAGER ---
Contacted patient related to hospital discharge. Spoke to him and his . They have questions regarding his heart medications. They are going to follow up with call or contact centre team leader today at 230pm. They are aware of follow up appointment with Dr. Franz. They deny any questions or concerns at this time. ZAHIRA Aquino
== END 2023-11-07 17:04 | disposition home or self-care (01) | DRG 291 ==
LOC: ER 15:35 → 2ND 15:47
PROVIDERS: Student in an Organized Health Care Education/Training Program; Admitting Provider Internal Medicine Adolescent Medicine; Emergency Provider Emergency Medicine; PCP Family Medicine; Visit Provider Internal Medicine Adolescent Medicine
DX: I50.23 Acute on chronic systolic (congestive) heart failure; N18.31 Chronic kidney disease, stage 3a; Z95.1 Presence of aortocoronary bypass graft; I48.0 Paroxysmal atrial fibrillation; I25.10 Atherosclerotic heart disease of native coronary artery without angina pectoris; K21.9 Gastro-esophageal reflux disease without esophagitis; F17.200 Nicotine dependence, unspecified, uncomplicated; E78.2 Mixed hyperlipidemia; E87.6 Hypokalemia; Z86.73 Personal history of transient ischemic attack (TIA), and cerebral infarction without residual deficits; I13.0 Hypertensive heart and chronic kidney disease with heart failure and stage 1 through stage 4 chronic kidney disease, or unspecified chronic kidney disease; Z87.891 Personal history of nicotine dependence; E11.22 Type 2 diabetes mellitus with diabetic chronic kidney disease; K59.00 Constipation, unspecified; Z79.4 Long term (current) use of insulin; Z95.810 Presence of automatic (implantable) cardiac defibrillator
CPT/HCPCS: 36415; 71045; 74176; 80048; 80053; 82962; 83735; 83880; 84484; 85025; 93005; 93306; 94640; 99285; J1939; J3480

== ENCOUNTER 2023-11-10 15:03 | Outpatient (CLI) | payer MEDICARE, SELFPAY ==
[2023-11-10 15:39] LABS: Anion Gap 8.9 mEq/L (5-15); Blood Urea Nitrogen 26 mg/dl (9-20); Carbon Dioxide 31 mmol/L (22.0-30.0); Chloride 99 mmol/L (98-107); Estimated Glomerular Filt Rate 31 ml/min (>60); GFR (African American) 37 ML/MIN (>60); Glucose 126 mg/dl (74-100); Potassium 3.9 mmoL/L (3.5-5.1); Sodium 135 mmol/L (136-145)
== END 2023-11-10 23:59 | disposition home or self-care (01) ==
LOC: LAB 15:04
PROVIDERS: PCP Family Medicine; Visit Provider Student in an Organized Health Care Education/Training Program
DX: I50.23 Acute on chronic systolic (congestive) heart failure (principal)
CPT/HCPCS: 36415; 80048

== ENCOUNTER 2023-12-06 14:55 | Outpatient (CLI) | payer MEDICARE, SELFPAY ==
[2023-12-06 15:21] LABS: Basophils # 0.1 K/mm3 (0-0.2); Basophils % 1.2 % (0.1-2.0); Eosinophils # 0.2 K/mm3 (0.0-0.4); Eosinophils % 4.8 % (0.1-12.0); Hemoglobin 10.8 g/dL (14.1-18.0); Lymphocytes # 0.8 K/mm3 (0.7-4.5); Lymphocytes % 17.5 % (10-50); Mean Corpuscular HGB Conc 31.7 g/dL (31.8-35.4); Mean Corpuscular Hemoglobin 27.6 pg (27.0-31.2); Mean Platelet Volume 7.5 fl (7.4-10.4); Monocytes # 0.4 K/mm3 (0.1-1.0); Monocytes % 7.9 % (1.7-9.3); Neutrophils # 3.2 K/mm3 (1.8-7.8); Neutrophils % 68.6 % (37.0-80.0); Platelet Count 317 K/mm3 (142-424); Red Cell Distribution Width 17.7 % (11.5-17.5); White Blood Count 4.7 K/mm3 (4.8-10.8)
[2023-12-06 15:32] LABS: Alanine Aminotransferase 13 U/L (12-78); Alkaline Phosphatase 278 U/L (38-126); Anion Gap 5.9 mEq/L (5-15); Aspartate Amino Transferase 23 U/L (17-59); Bilirubin,Direct 0.7 mg/dl (0.0-0.4); Bilirubin,Indirect 0.6 mg/dL (0.0-0.9); Bilirubin,Total 1.3 mg/dl (0.2-1.3); Bilirubin,Unconjugated 0.5 mg/dL (0.0-1.1); Blood Urea Nitrogen 22 mg/dl (9-20); Calcium 9.2 mg/dl (8.4-10.2); Carbon Dioxide 34 mmol/L (22.0-30.0); Chloride 101 mmol/L (98-107); Chol/HDL Ratio 3.1 (1-3.5); Cholesterol 80 mg/dl (140-200); Estimated Glomerular Filt Rate 36 ml/min (>60); GFR (African American) 44 ML/MIN (>60); Glucose 110 mg/dl (74-100); HDL Cholesterol 26 mg/dl (40-60); Magnesium 1.9 mg/dl (1.6-2.3); Sodium 138 mmol/L (136-145); Total Protein,Serum 7.9 g/dl (6.3-8.2); Triglycerides 108 mg/dl (30-150); VLDL Cholesterol 22 mg/dL (0-40)
[2023-12-06 15:38] LABS: Potassium 2.9 mmoL/L (3.5-5.1)
[2023-12-06 15:49] LABS: Direct LDL Cholesterol < 30.00 mg/dL (100-129)
[2023-12-06 16:04] LABS: Free T4 (Free Thyroxine) 2.09 ng/dl (0.78-2.19)
[2023-12-06 17:34] LABS: Thyroid Stimulating Hormone 4.63 uIU/mL (0.465-4.68)
== END 2023-12-06 23:59 | disposition home or self-care (01) ==
LOC: LAB 14:57
PROVIDERS: PCP Family Medicine; Visit Provider Internal Medicine
DX: I50.23 Acute on chronic systolic (congestive) heart failure (principal); E10.628 Type 1 diabetes mellitus with other skin complications; N18.32 Chronic kidney disease, stage 3b; N40.0 Benign prostatic hyperplasia without lower urinary tract symptoms; I73.9 Peripheral vascular disease, unspecified; I48.0 Paroxysmal atrial fibrillation; F17.200 Nicotine dependence, unspecified, uncomplicated; E78.2 Mixed hyperlipidemia; I10 Essential (primary) hypertension; N18.31 Chronic kidney disease, stage 3a; I25.10 Atherosclerotic heart disease of native coronary artery without angina pectoris; R60.0 Localized edema
CPT/HCPCS: 36415; 80048; 80061; 80076; 83735; 84439; 84443; 85025

== ENCOUNTER 2024-01-03 06:58 | Outpatient (CLI) | payer MEDICARE, SELFPAY ==
--- NOTE | 2024-01-03 | CA_ITS ---
APPROVED REPORT Exam: Pharmacologic Technologist: Christy Omer Ht: 5 ft 9 in Wt: 160 lbs BSA: 1.88 m2 HR: 91 bpm Stress Test Details Test: Lexiscan Reason for pharmacologic stress test: physical limitation. HR Resting HR: 91 bpm Max Heart Rate (APMHR): 160 bpm Target HR (85% APMHR): 136 bpm Recovery HR: 84 bpm BP Resting BP: 102.0/61.0 mmHg Max BP: 104.0/52.0 mmHg Recovery BP: 94.0/61.0 mmHg ECG Resting ECG: Afib, IVCD, right axis deviation, possible old anterior NE, ST-T abns Stress ECG Conclusion Symptoms: None Arrhythmias/Ectopy: PVC or abberantly conducted beat. Occ V. paced beat. ST-T Changes: Mild exaggeration of baseline ST-T abns. Conclusion: Non-diagnostic Lexiscan stress due to baseline EKG abns. Myoview images reported separately. Electronically signed by : Cherelle Tarango MD 01/04/2024 12:53:14
--- NOTE | 2024-01-03 07:03 | NM_ITS ---
APPROVED REPORT Exam: Nuclear Stress Test Indication: cad, htn, diabetes, hyperlipidemia, tob use, fm hx. Patient Location: Outpatient Stress Tech: Christy Meza [place] Tech:CARMELA Navas RT (R)(N)(M) Ht: 5 ft 9 in Wt: 196 lbs HR: 91 bpm BP: 102/62 mmHg BSA: 2.05 m2 TID: 1.10 BMI: 28.9 History: cad, htn, diabetes, hyperlipidemia, tob use, fm hx Procedure: Patient received 0.4 mg of intravenous Lexiscan, resting heart rate 91 bpm, resting blood pressure 102/62 mmHg, with Lexiscan maximum heart rate achieved was bpm which is % of the maximum predicted heart rate and blood pressure was 104/52 mmHg. With Lexiscan, patient denied any complaint of chest pain. Cardiac Stress and Resting SPECT Images: Cardiac Stress and Resting SPECT images were obtained using technetium 99m Myoview 29.9 mCi stress and 10.12 mCi at rest. Resting and stress imaging in supine and prone positions demonstrate a large sized, severe, predominantly fixed perfusion defect in the inferior, lateral, and inferior lateral LV escobar. There is minimal reversibility in the surrounding region. Gated imaging demonstrates severe reduction in LV systolic function. There is akinesis of the inferior and lateral LV escobar. LVEF is calculated at 13%. Conclusion: Large sized, severe, predominantly fixed perfusion defect in the inferior, lateral, and inferior lateral LV escobar. There is minimal reversibility in the surrounding region. Findings are suggestive of partial reversible ischemia. Gated imaging demonstrates severe reduction in LV systolic function. There is akinesis of the inferior and lateral LV escobar. LVEF is calculated at 13%. Electronically signed by : Cherelle Tarango MD 01/04/2024 12:57:08
[2024-01-03] MEDS: SODIUM CHLORIDE 0.9% 10ML SYR (RAD ONLY) 10 ML IV ×2 (07:15→08:30)
[2024-01-03] MEDS: REGADENOSON 0.4MG/5ML SYRINGE 0.4 MG IV (08:30)
[2024-01-03] MEDS: ISOTOPE MYOVIEW (PER STUDY) 1 DOSE IV (09:09)
== END 2024-01-03 23:59 | disposition home or self-care (01) ==
LOC: RAD 06:58
PROVIDERS: PCP Family Medicine; Visit Provider Internal Medicine
DX: I25.10 Atherosclerotic heart disease of native coronary artery without angina pectoris (principal)
CPT/HCPCS: 78452; 93017; 93018; A9502; J2785

== ENCOUNTER 2024-01-16 15:41 | Outpatient (CLI) | payer MEDICARE, SELFPAY ==
[2024-01-16 16:16] LABS: Basophils # 0.1 K/mm3 (0-0.2); Basophils % 1.1 % (0.1-2.0); Eosinophils # 0.3 K/mm3 (0.0-0.4); Eosinophils % 4.8 % (0.1-12.0); Hematocrit 41.4 % (42.0-52.0); Hemoglobin 13.7 g/dL (14.1-18.0); Lymphocytes # 1.4 K/mm3 (0.7-4.5); Lymphocytes % 21.3 % (10-50); Mean Corpuscular Hemoglobin 28.6 pg (27.0-31.2); Mean Corpuscular Volume 86.7 fl (80-94); Monocytes # 0.6 K/mm3 (0.1-1.0); Monocytes % 9.7 % (1.7-9.3); Neutrophils % 63.2 % (37.0-80.0); Platelet Count 294 K/mm3 (142-424); Red Blood Count 4.77 M/mm3 (4.60-6.20); Red Cell Distribution Width 16.9 % (11.5-17.5); White Blood Count 6.4 K/mm3 (4.8-10.8)
[2024-01-16 16:40] LABS: Blood Urea Nitrogen 42 mg/dl (9-20); Calcium 10.3 mg/dl (8.4-10.2); Carbon Dioxide 28 mmol/L (22.0-30.0); Chloride 95 mmol/L (98-107); Estimated Glomerular Filt Rate 36 ml/min (>60); GFR (African American) 44 ML/MIN (>60); Glucose 253 mg/dl (74-100); Sodium 134 mmol/L (136-145)
== END 2024-01-16 23:59 | disposition home or self-care (01) ==
LOC: LAB 15:42
PROVIDERS: Internal Medicine; PCP Family Medicine; Visit Provider Physician Assistant
DX: I25.10 Atherosclerotic heart disease of native coronary artery without angina pectoris (principal); I42.8 Other cardiomyopathies; I50.23 Acute on chronic systolic (congestive) heart failure; I10 Essential (primary) hypertension; E78.2 Mixed hyperlipidemia; R06.09 Other forms of dyspnea; E11.42 Type 2 diabetes mellitus with diabetic polyneuropathy
CPT/HCPCS: 36415; 80048; 85025

== ENCOUNTER 2024-02-05 10:36 | Outpatient (CLI) | payer MEDICARE, SELFPAY ==
[2024-02-05 18:16] LABS: Hemoglobin A1C 10.3 % (4.0-6.0)
[2024-02-05 18:37] LABS: Alanine Aminotransferase 30 U/L (12-78); Albumin/Globulin Ratio 1.3 (1.1-1.8); Alkaline Phosphatase 209 U/L (38-126); Anion Gap 12.7 mEq/L (5-15); Aspartate Amino Transferase 34 U/L (17-59); Bilirubin,Total 0.5 mg/dl (0.2-1.3); Blood Urea Nitrogen 36 mg/dl (9-20); Calcium 9.8 mg/dl (8.4-10.2); Carbon Dioxide 27 mmol/L (22.0-30.0); Chloride 101 mmol/L (98-107); Estimated Glomerular Filt Rate 52 ml/min (>60); GFR (African American) 63 ML/MIN (>60); Glucose 286 mg/dl (74-100); Potassium 4.7 mmoL/L (3.5-5.1); Sodium 136 mmol/L (136-145)
[2024-02-05 19:06] LABS: Thyroid Stimulating Hormone 2.19 uIU/mL (0.465-4.68)
== END 2024-02-05 23:59 | disposition home or self-care (01) ==
LOC: LAB.DROPOF 02-06 12:42
PROVIDERS: PCP Family Medicine; Visit Provider Family Medicine
DX: I10 Essential (primary) hypertension (principal); E11.9 Type 2 diabetes mellitus without complications
CPT/HCPCS: 80053; 83036; 84443

== ENCOUNTER 2024-04-17 15:36 | Outpatient (CLI) | payer MEDICARE, SELFPAY ==
[2024-04-17 17:45] LABS: Anion Gap 16.2 mEq/L (5-15); Blood Urea Nitrogen 45 mg/dl (9-20); Calcium 9.9 mg/dl (8.4-10.2); Carbon Dioxide 22 mmol/L (22.0-30.0); Chloride 98 mmol/L (98-107); Estimated Glomerular Filt Rate 32 ml/min (>60); GFR (African American) 39 ML/MIN (>60); Glucose 397 mg/dl (74-100); Potassium 5.2 mmoL/L (3.5-5.1); Sodium 131 mmol/L (136-145)
== END 2024-04-17 23:59 | disposition home or self-care (01) ==
LOC: LAB 15:37
PROVIDERS: PCP Family Medicine; Visit Provider Internal Medicine
DX: E78.2 Mixed hyperlipidemia (principal); I12.9 Hypertensive chronic kidney disease with stage 1 through stage 4 chronic kidney disease, or unspecified chronic kidney disease; N18.32 Chronic kidney disease, stage 3b
CPT/HCPCS: 36415; 80048

== ENCOUNTER 2024-05-08 09:59 | Outpatient (CLI) | payer MEDICARE, SELFPAY ==
[2024-05-08 11:01] LABS: Chloride 106 mmol/L (98-107); Sodium 139 mmol/L (136-145)
[2024-05-08 11:04] LABS: Blood Urea Nitrogen 25 mg/dl (9-20); Carbon Dioxide 25 mmol/L (22.0-30.0); Estimated Glomerular Filt Rate 52 ml/min (>60); GFR (African American) 63 ML/MIN (>60)
[2024-05-08 11:05] LABS: Calcium 10.5 mg/dl (8.4-10.2); Glucose 154 mg/dl (74-100)
== END 2024-05-08 23:59 | disposition home or self-care (01) ==
LOC: LAB 10:00
PROVIDERS: PCP Family Medicine; Visit Provider Physician Assistant
DX: E87.5 Hyperkalemia (principal); N18.9 Chronic kidney disease, unspecified
CPT/HCPCS: 36415; 80048

== ENCOUNTER 2024-05-15 11:00 | Outpatient (CLI) | payer MEDICARE, SELFPAY ==
[2024-05-15 20:06] LABS: Creatinine,Urine Random 61 mg/dL (Not Estab.)
[2024-05-15 20:08] LABS: Microalbumin/Creatinine Ratio 80.6
[2024-05-15 21:18] LABS: HIV Combo NEGATIVE (Negative)
[2024-05-15 22:36] LABS: Hepatitis C Ab Qual. W/ RFX NEGATIVE (Negative)
== END 2024-05-15 23:59 | disposition home or self-care (01) ==
LOC: LAB.DROPOF 05-16 11:44
PROVIDERS: PCP Family Medicine; Visit Provider Family Medicine
DX: E11.42 Type 2 diabetes mellitus with diabetic polyneuropathy (principal); Z11.59 Encounter for screening for other viral diseases
CPT/HCPCS: 82043; 82570; 86803; 87389

== ENCOUNTER 2024-06-14 07:47 | Outpatient (CLI) | payer MEDICARE, SELFPAY ==
[2024-06-14 18:10] LABS: Chloride 107 mmol/L (98-107); Potassium 4.9 mmoL/L (3.5-5.1); Sodium 138 mmol/L (136-145)
[2024-06-14 18:13] LABS: Alanine Aminotransferase 42 U/L (12-78); Albumin/Globulin Ratio 1.2 (1.1-1.8); Alkaline Phosphatase 168 U/L (38-126); Anion Gap 13.9 mEq/L (5-15); Aspartate Amino Transferase 43 U/L (17-59); Bilirubin,Total 0.4 mg/dl (0.2-1.3); Blood Urea Nitrogen 14 mg/dl (9-20); Carbon Dioxide 22 mmol/L (22.0-30.0); Estimated Glomerular Filt Rate 56 ml/min (>60); GFR (African American) 68 ML/MIN (>60); Globulin 3.3 g/dL (1.3-3.2); Total Protein,Serum 7.3 g/dl (6.3-8.2)
[2024-06-14 18:14] LABS: Calcium 9.6 mg/dl (8.4-10.2); Glucose 244 mg/dl (74-100)
== END 2024-06-14 23:59 | disposition home or self-care (01) ==
LOC: LAB.DROPOF 06-15 07:47
PROVIDERS: PCP Family Medicine; Visit Provider Family Medicine
DX: E87.5 Hyperkalemia (principal)
CPT/HCPCS: 80053

== ENCOUNTER 2024-09-13 12:12 | Outpatient (CLI) | payer MEDICARE, SELFPAY ==
[2024-09-13 15:38] LABS: Hematocrit 37.9 % (42.0-52.0); Hemoglobin 13.2 g/dL (14.1-18.0); Immature Granulocytes % 0.1 %; Mean Corpuscular HGB Conc 34.8 g/dL (31.8-35.4); Mean Corpuscular Hemoglobin 31.5 pg (27.0-31.2); Mean Corpuscular Volume 90.5 fl (80-94); Nucleated Red Blood Cells % 0 %; Platelet Count 255 K/mm3 (142-424); Red Blood Count 4.19 M/mm3 (4.60-6.20); Red Cell Distribution Width-SD 42.3 fL; White Blood Count 7.1 K/mm3 (4.8-10.8)
[2024-09-13 16:07] LABS: Alanine Aminotransferase 23 U/L (12-78); Albumin Level 3.5 g/dl (3.5-5.0); Albumin/Globulin Ratio 1.1 (1.1-1.8); Alkaline Phosphatase 172 U/L (38-126); Anion Gap 14.4 mEq/L (5-15); Aspartate Amino Transferase 29 U/L (17-59); Bilirubin,Total 0.3 mg/dl (0.2-1.3); Blood Urea Nitrogen 35 mg/dl (9-20); Calcium 9.6 mg/dl (8.4-10.2); Carbon Dioxide 20 mmol/L (22.0-30.0); Chloride 100 mmol/L (98-107); Cholesterol 169 mg/dl (140-200); Creatinine,Serum 1.70 mg/dl (0.66-1.25); Estimated Glomerular Filt Rate 41 ml/min (>60); GFR (African American) 50 ML/MIN (>60); Globulin 3.1 g/dL (1.3-3.2); Glucose 399 mg/dl (74-100); HDL Cholesterol 27 mg/dl (40-60); Potassium 4.4 mmoL/L (3.5-5.1); Sodium 130 mmol/L (136-145); Total Protein,Serum 6.6 g/dl (6.3-8.2)
[2024-09-13 16:14] LABS: Triglycerides 755 mg/dl (30-150)
--- OUTSIDE RECORDS SUMMARY | 2024-09-16 12:13 | XMS_ITS | Continuity of Care Document ---
Author Organization [facility]. If a dditional information is needed, contact Health Information Management at [phone] [place] [address] Phone Care Team Providers Care Company Doctor Name Role Phone Unavailable Unavailable Unavailable Unavailable Unavailable Unavailable Unavailable Unavailable Unavailable Unavailable Unavailable Unavailable Problems Atrial fibrillation Onset:27-Apr-2023 Camden Rogers DO Status:Acute History finding Onset:27-Apr-2023 Camden Rogers DO Status:Acute Hypertensive disorder Onset:27-Apr-2023 Camden Rogers DO Status:Acute Renal failure syndrome Onset:27-Apr-2023 Kelly Mason MD Status:Acute Heart failure Onset:27-Apr-2023 Kelly Mason MD Status:Acute Syncope Onset:27-Apr-2023 Kelly Mason MD Status:Acute Mental Status Cognitive function finding 27-Apr-2023 Functional Status Functional finding 27-Apr-2023 Functional finding 27-Apr-2023 Functional finding 27-Apr-2023 Functional finding 27-Apr-2023 Allergies and Adverse Reactions No Known Allergies(Allergy) Onset: 27-Apr-2023 Medications atorvastatin 40 MG Oral Tabl et [Lipitor];80 MG ORAL At Bedtime Start:27-Apr-2023 Comments:80 mg PO BEDTIME Proventil_[id number];90 M CG Inhalation As Needed Start:27-Apr-2023 Comments:90 mcg INHALATION PRN As Needed for SOA Prilosec_[id number];40 M G ORAL Daily Start:27-Apr-2023 Comments:40 mg PO DAILY clopidogrel;75 MG ORAL Daily Start:27-Apr-2023 Comments:75 mg PO DAILY Flonase;1 SPRAY Intranasal D aily Start:27-Apr-2023 Comments:1 spray INTRANASAL DAILY mecobalamin (vitamin B12) 1, 000 mcg chewable tablet;1000 MCG ORAL Daily Start:27-Apr-2023 Comments:1000 mcg PO DAILY warfarin sodium;2.5 MG ORAL Daily Start:27-Apr-2023 Comments:2.5 mg PO DAILY nitroglycerin 0.4 MG Subling ual Tablet [Nitrostat];0.4 MG Sublingual Q5M Start:27-Apr-2023 Comments:0.4 mg SUBLINGUAL Q5M As Needed for Pain Carl Locopen U-100;25 UN IT subcut QPM Start:27-Apr-2023 Comments:25 unit SUBCUT QPM amiodarone hydrochloride;200 MG ORAL Two Times a Day Start:27-Apr-2023 Comments:200 mg PO BID Bupropion HCl Sr;150 MG ORAL Two Times a Day Start:27-Apr-2023 Comments:150 mg PO BID Trulicity;1.5 MG subcut Week ly Start:27-Apr-2023 Comments:1.5 mg SUBCUT WEEKLY bisoprolol fumarate 5 MG Ora l Tablet;5 MG ORAL Daily Start:27-Apr-2023 Comments:5 mg PO DAILY
--- OUTSIDE RECORDS SUMMARY | 2024-09-16 12:20 | XMS_ITS | Encounter Summary ---
Author Organization Healthcare Address [address] [place] [address] Care Team Providers Care Ticket Sorter Name Role Phone Isaak Jolly MD Unavailable [phone] Darron Franz MD Primary Care Provider [phone] Zo Cruz LPN Unavailable Unavailab le Encounter Details Date Type Department Care Team (Late st Contact Info) Description 06/05/2023 Lab Requisition [facility] [address] [place] [address] Chapo Koenig MD [address] [facility] [address] [place] [address] Encounter for general adult medical examination without abnormal findings Social History Tobacco Use Types Packs/Day Years Used Date Smoking Tobacco: Some Days Cigarettes 0.5 50 Started: 04/21/1972; Last attempted to quit: 04/21/2022 Passive Smoke Exposure: Current Smokeless Tobacco: Former Comments: Yes and no trying to quit Alcohol Use Standard Drinks/Week Comments Not Currently 0 (1 standard drink = 0.6 oz pur e alcohol) Humiliation, Afraid, Rape, and Kick questionnair e Answer Date Recorded Within the last year, have y ou been afraid of your partner or ex-partner? No 05/26/2023 Within the last year, have y ou been humiliated or emotionally abused in other ways by your partner or ex-partner? No Within the last year, have y ou been kicked, hit, slapped, or otherwise physically hurt by your partner or ex-partner? No 05/26/2023 Within the last year, have y ou been raped or forced to have any kind of sexual activity by your partner or ex-partner? No 05/26/2023 Hunger Vital Sign Answer Date Recorded Within the past 12 months, y ou worried that your food would run out before you got the money to buy more. Never true 06/05/19 24 Within the past 12 months, t he food you bought just didn't last and you didn't have money to get more. Never true 06/05/2023 PRAPARE - Transportation Answer Date Re corded In the past 12 months, has l ack of transportation kept you from medical appointments or from getting medications? No 05/21 In the past 12 months, has l ack of transportation kept you from meetings, work, or from getting things needed for daily living? No 06/05/2023 Housing Stability Vital Sign Answer Rocael e Recorded In the last 12 months, was t here a time when you were not able to pay the mortgage or rent on time? No 06/05/2023 [address] of Places Lived in the Last Year Not on f ile 06/05/2023 In the last 12 months, was t here a time when you did not have a steady place to sleep or slept in a skilled nursing (including now)? No 06/05/2023 CAGE ASSESSMENT Answer Date Recorded Cage unable to access Not on file 06/08/2023 Cage max number of drinks Not on file 2023 Cage Beverages a week Not on file 06/08/2023 Have you ever felt you should CUT down on your d rinking? 0 06/08/2023 Have you been ANNOYED by people criticizing your drinking? 0 06/08/2023 Have you felt GUILTY about your drinking? 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 0 06/08/2023 CAGE Questionnaire Score 0 024 Utilities Answer Date Recorded In the past 12 months has th e electric, gas, oil, or water company threatened to shut off services in your home? No 06/05/2023 Sex and Gender Information Value Date Recorded Sex Assigned at Not on file Legal Sex Male 8:32 PM EDT Gender Identity Not on file Sexual Orientation Not on file Occupation Industry Job Start Date Job End Date disabled Not on file Not on file Not on file documented as of this encounter Functional Status * Calculated C-SSRS Risk Score (Lifetime/Recent) Answer Date of Assessment Author No Risk Indicated 06/07/2023 8:00 AM EDT Nikita De La Cruz * Question Answer Date of Assessment Author 1. Wish to be (Past 1 Month) No 024 8:00 AM EDT Nikita Alanis 2. Non-Specific Active Suici giovanny Thoughts (Past 1 Month) No 06/07/2023 8:00 AM EDT Hudson Alanis 6. Suicidal Behavior (Lifetime) No 8:00 AM EDT Nikita Alanis documented as of this encounter Plan of Treatment Not on file documented as of this encounter Procedures Procedure Name Priority Date/Time Associated Diagnosis Comments MULTI DRUG RESISTANCE TEST Routine 06/05/2023 8:50 AM EDT Encounter for general adult medical examination without abnormal findings documented in this encounter Results * Multi Drug Resistance Test (06/05/2023 8:50 AM EDT) Culture No growth at day 1 06/06/2023 8:59 AM EDT [facility] Swab (Nares and Karly Rectal) 06/05/2023 8:50 AM EDT 06/05/2023 12:23 PM EDT us Chapo Koenig MD LAB MICROBIOLOGY - GEN ERAL ORDERABLES Final Result [facility] [address] [place] [address] documented in this encounter Visit Diagnoses Diagnosis Encounter for general adult medical examination without abnormal findings documented in this encounter Additional Health Concerns Assessment Noted Time A fall risk assessment has been complete d for the patient 05/19/2022 1:04 PM EDT A Body Mass Index follow-up plan has been documented for the patient 06/13/2023 1:23 PM EDT documented as of this encounter Care Teams Ticket Sorter Relationship Specialty Start Date End Date Darron Franz MD [address] [id number] PCP - General 03/31/22 Isaak Jolly MD [address] [address] Referring Physician Cardiology 03/29/22 Zo Cruz LPN VALUE-BASED [place] [address] TCM Nurse 06/14/23 07/14/23 documented as of this encounter
--- OUTSIDE RECORDS SUMMARY | 2024-09-16 12:20 | XMS_ITS | Encounter Summary ---
Author Organization Healthcare Address [address] [place] [address] Care Team Providers Care Partner Alliance Manager Name Role Phone Isaak Jolly MD Unavailable [phone] Darron Franz MD Primary Care Provider [phone] Zo Cruz LPN Unavailable Unavailab le Encounter Details Date Type Department Care Team (Late st Contact Info) Description 04/25/2022 Lab Requisition [facility] [address] [place] [address] Josef Murillo MD [address] [address] Encounter for general adult medical examination without abnormal findings Social History Tobacco Use Types Packs/Day Years Used Date Smoking Tobacco: Every Day Cigarettes 0.5 50 Passive Smoke Exposure: Current Smokeless Tobacco: Former Comments: Yes and no trying to quit Alcohol Use Standard Drinks/Week Comments Not Currently 0 (1 standard drink = 0.6 oz pur e alcohol) Sex and Gender Information Value Date Recorded Sex Assigned at Not on file Legal Sex Male 8:32 PM EDT Gender Identity Not on file Sexual Orientation Not on file Occupation Industry Job Start Date Job End Date disabled Not on file Not on file Not on file COVID-19 Exposure Response Date Recorded In the last 10 days, have yo u been in contact with someone who was confirmed or suspected to have Coronavirus/COVID-19? No / Unsure 04/22/2022 6:25 AM EST documented as of this encounter Plan of Treatment Not on file documented as of this encounter Procedures Procedure Name Priority Date/Time Associated Diagnosis Comments MULTI DRUG RESISTANCE TEST Routine 04/25/2022 8:00 AM EST Encounter for general adult medical examination without abnormal findings documented in this encounter Results * Multi Drug Resistance Test (04/25/2022 8:00 AM EST) Culture No growth at day 2 04/27/2022 8:20 AM EST [facility] Swab (Nares and Karly Rectal) 04/25/2022 8:00 AM EST 04/25/2022 10:51 AM EST us Josef Lea MD LAB MICROBIOLOGY - GENERAL ORDERABLES Final Result Performing Organization Address City/State/[facility] Co de Phone Number [facility] [address] [place] [address] documented in this encounter Visit Diagnoses Diagnosis Encounter for general adult medical examination without abnormal findings documented in this encounter Additional Health Concerns Assessment Noted Time A fall risk assessment has been complete d for the patient 04/21/2022 12:33 PM EST A Body Mass Index follow-up plan has been documented for the patient 04/21/2022 2:16 PM EST documented as of this encounter Care Teams Partner Alliance Manager Relationship Specialty Start Date End Date Darron Franz MD [address] [place] [address] PCP - General 03/31/22 Isaak Jolly MD [address] [place] [address] Referring Physician Cardiology 03/29/22 Zo Cruz LPN VALUE-[place]ED [place] [address] TCM Nurse 06/14/23 07/14/23 documented as of this encounter
--- OUTSIDE RECORDS SUMMARY | 2024-09-16 12:20 | XMS_ITS | Clinical Summary ---
Author Organization [facility] Address [address] [place] [address] Care Team Providers Care Statement Clerks Manager Name Role Phone Isaak Jolly MD Unavailable [phone] Darron Franz MD Primary Care Provider [phone] Allergies No known active allergies Medications buPROPion SR (Wellbutrin SR) 150 MG 12 hr tablet Take 1 tablet (150 mg) by mouth 1 (one) time each day in the morning. 3 Active Jardiance 10 MG Take 1 tablet (10 mg) by mouth 1 (one) time each day in the morning. 3 Active omeprazole (PriLOSEC) [address] capsule Take 1 capsule (40 mg) by mouth 1 (one) time each day in the morning. 3 Active atorvastatin (Lipitor) 40 MG tablet Take 2 tablets (80 mg) by mouth every night. Active carvedilol (Coreg) 12.5 MG tablet Take 1 tablet (12.5 mg) by mouth 2 (two) times a day with meals. Active traMADol (Ultram) 50 MG tablet Take 1 tablet (50 mg) by mouth every 8 (eight) hours if needed. 4 Active tamsulosin (Flomax) 0.4 MG 24 hr capsule Take 1 capsule (0.4 mg) by mouth 1 (one) time each day in the evening. Active tiZANidine (Zanaflex) 2 MG tablet Take 1 tablet (2 mg) by mouth every 8 (eight) hours if needed. 4 Active Cyanocobalamin 1000 MCG capsule Take 1,000 mcg by mouth 1 (one) time each day in the morning. Active Coenzyme Q10 (COQ-10 PO) Take 1 tablet by mouth 1 (one) time each day. Active bacitracin 500 UNIT/GM ointment Apply to affect skin 14 g 1 4 Active insulin glargine (Lantus) 100 UNIT/ML injection vial Inject 0.05-0.1 mL (5-10 Units) under the skin every night. 4 Active Trulicity 1.5 MG/0.5ML solution pen-injector inj. pen INJECT 1 PEN (1.5 MG) SUBCUTANEOUSLY ONCE A WEEK 3 Active apixaban (Eliquis) 5 MG tablet Take 1 tablet (5 mg) by mouth 2 (two) times a day. 60 tablet 3 4 Active enalapril (Vasotec) 10 MG tablet Take 1 tablet (10 mg) by mouth 1 (one) time each day. 30 tablet 3 4 Active magnesium oxide (Mag-Ox) 400 (240 Mg) MG tablet Take 1 tablet (400 mg) by mouth 1 (one) time each day in the morning. 30 tablet 5 4 Active spironolactone (Aldactone) 25 MG tabletIndicati ons:Chronic kidney disease, stage 3b (CMS/HCC),Subscription Clerk latrice systolic congestive heart failure (CMS/HCC) Take 1 tablet (25 mg) by mouth 1 (one) time each day at the same time. 90 each 3 4 Active bumetanide (Bumex) 2 MG tablet Take 1 tablet (2 mg) by mouth 2 (two) times a day. 90 tablet 3 4 Active albuterol 108 (90 Base) MCG/ACT inhaler Inhale 1 puff 1 (one) time if needed for wheezing or shortness of breath. 4 Active budesonide-for moterol (Symbicort) 160-4.5 MCG/ACT inhaler Inhale 1 puff 2 (two) times a day. 4 Active warfarin (Coumadin) 2.5 MG tablet Take 1 tablet (2.5 mg) by mouth 1 (one) time each day. 4 Active Active Problems Problem Noted Date Diagnosed Date Acute on chronic right heart failure 06/14/2023 Acute on chronic right-sided heart failure 06/06 Right heart failure due to left heart failure Acute on chronic heart failu re, unspecified heart failure type 05/26/2023 A-fib 04/25/2022 Mitral regurgitation 04/22/2022 Tricuspid regurgitation 04/22/2022 Overview (05/03/2022): mild On home O2 04/21/2022 Pulmonary nodules 03/31/2022 Overview (03/31/2022): Last CT scan stable COPD (chronic obstructive pulmonary disease) 10/2022 Overview (04/22/2022): 2L home O2 at night Overweight (BMI 25.0-29.9) 03/31/2022 Hemoglobin A1C greater than 9%, indicating poor diabetic control 03/31/2022 Overview (05/03/2022): A1c 11.8 Coronary artery disease 03/29/2022 Hyperlipidemia 03/29/2022 Chronic systolic congestive heart failure 2022 Diabetic peripheral neuropathy 03/29/2022 GERD (gastroesophageal reflux disease) Asthma 03/29/2022 Ischemic cardiomyopathy 03/29/2022 Arthritis 03/29/2022 Anemia in chronic kidney disease 01/28/2019 Mild vitamin D deficiency 09/25/2017 Diabetes mellitus, type 2 09/20/2017 Hypertension 09/20/2017 CKD (chronic kidney disease) stage 3, GFR 30-59 ml/min 08/18/2017 Resolved Problems Problem Noted Date Diagnosed Date Resolved Date Acute respiratory insufficiency 04/25/2022 04/27/2022 Overview (04/26/2022): - wean nasal canula as tolerated - hx COPD on 2L NC home - CXR small bilateral pleural effusions, low lung volumes S/P coronary artery bypass graft x 3 04/22/2022 04/22/2022 Overview (04/22/2022): - s/p 3vCABG 04/22/2022 - wean inotropes and pressors as able - volume resuscitation in post-operative period - start statin, ASA, and BB as appropriate Acute blood loss anemia 04/22/2022 03/0 08/2022 Overview (04/22/2022): - monitor H&H with daily CBC - transfuse PRN, goal Hgb >7 Volume overload 04/22/2022 04/27/2022 Overview (04/22/2022): - diuresis as appropriate - CXR PRN Acute respiratory failure with hypoxemia 04/22/2022 04/25/2022 Overview (04/22/2022): - Extubation as appropriate Thrombocythemia 04/22/2022 04/26/2022 Overview (04/22/2022): - In setting of surgery - monitor and replace as needed Family History Medical History Relation Name Comments Diabetes Brother Lung cancer Brother Cardiac disorder Father Diabetes Father Hyperlipidemia Father Hypertension Father Lung cancer Mother Osteoporosis Mother Anesthesia problems Neg Hx Malig Hyperthermia Neg Hx Relation Name Status Comments Brother Father dad age 69 [place] Mother Social History Tobacco Use Types Packs/Day Years Used Date Smoking Tobacco: Some Days Cigarettes 0.5 50 Started: 04/21/1972; Last attempted to quit: 04/21/2022 Passive Smoke Exposure: Current Smokeless Tobacco: Former Tobacco Cessation:Ready to Q uit: No; Counseling Given: No Comments: Yes and no trying to quit [...] by your partner or ex-partner? No 05/26/2023 Social Connection and Isolation Panel Answer Date Recorded In a typical week, how many times do you talk on the phone with family, friends, or neighbors? More than three times a week 06/14/2023 Frequency of Social Gatherin gs with Friends and Family Not on file 06/14/2023 How often do you attend chur ch or confucianism services? Never 06/14/2023 Do you belong to any clubs o r organizations such as cheondoism groups, unions, fraternal or athletic groups, or school groups? No 06/14/2023 How often do you attend meet ings of the clubs or organizations you belong to? Never 06/14/2023 Are you , , di vorced, , never , or living with a partner? 06/14/2023 PHQ-2 Answer Date Recorded Patient Health Questionnaire-2 Score 0 06/23/2023 Hunger Vital Sign Answer Date Recorded Within the past 12 months, y ou worried that your food would run out before you got the money to buy more. Never true 06/05/19 Within the past 12 months, t he [...] place to sleep or slept in a care home (including now)? 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 0 06/08/2023 CAGE Questionnaire Score 0 024 Utilities Answer Date Recorded In the past 12 months has e [employer], gas, oil, or water company threatened to shut off services in your home? No 06/05/2023 Sex and Gender Information Value Date Recorded Sex Assigned at Not on file Legal Sex Male 8:32 PM EDT Gender Identity Not on file Sexual Orientation Not on file Occupation Industry Job Start Date Job End Date disabled Not on file Not on file Not on file Last Filed Vital Signs Vital Sign Reading Time Taken Comments Blood Pressure 113/59 06/26/2023 3:10 PM EDT Pulse 67 06/26/2023 3:10 PM EDT Temperature 36.4 C (97.6 F) 06/13/2023 11:20 AM EDT Respiratory Rate 16 06/26/2023 3:10 PM EDT Oxygen Saturation 96% 06/26/2023 3:10 PM EDT Inhaled Oxygen Concentration - - Weight 91.4 kg (201 lb 8 oz) 06/26/2023 3:10 PM EDT Height 175.3 cm (5' 9 ) 06/23/2023 2:08 PM EDT Body Mass Index 29.76 06/23/2023 2:08 PM EDT Plan of Treatment Health Maintenance Due Date Last Done Comments [facility] Wellness (AWV) 1965 [facility]-/Child/Adol SDOH Screenings 1965 Diabetes: Dental Exam 05/22/1973 [facility]- SDOH Screenings 05/22/1981 [facility]-Adult SDOH Screenings 05/22/1981 [facility]-DTaP,Tdap,and Td Vaccines (1 - Tdap) 05/22/1982 [facility]-Pneumococcal Vaccine: 50+ Years (1 of 2 - PCV) 05/22/1982 CT Colonography 05/22/2008 Colonoscopy 05/22/2008 FIT-DNA 05/22/2008 FIT 05/22/2008 FOBT 05/22/2008 Sigmoidoscopy 05/22/2008 [facility]-Colorectal Cancer Screening 05/22/2008 [facility]-Zoster Vaccines (1 of 2) 05/22/2013 [facility]-RSV Vaccine: 60+ Years or (1 - Risk 60-74 years 1-dose series) 2023 [facility]-Diabetes: Hemoglobin A1C 08/24/2023 05/25/2023, 03/31/2022 [id number] Vaccine ( season) 2023 [facility]-Depression Screening 06/22/2024 06/23/2023 [facility]-Influenza Vaccine (#1) 2024 [facility]-HIV Screening Completed 05/25/2023 [facility]-Hepatitis C Screening Completed 05/25/2023 [facility]-Obesity Intervention Completed 024, 06/23/2023, 06/03/2023, Additional history exists HPV Vaccines Aged Out No longer eligi ble based on patient's age to complete this topic [facility]-HIB Vaccines Aged Out No longer e ligible based on patient's age to complete this topic [facility]-Hepatitis A Vaccines Aged Out No longer eligible based on patient's age to complete this topic [facility]-IPV Vaccines Aged Out No longer e ligible based on patient's age to complete this topic [facility]-Rotavirus Vaccines Aged Out No lo nger eligible based on patient's age to complete this topic Medical Devices Implanted Type 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 Marketing Operations 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 Device Identifier Shelf Expiration Date Model / Serial / Lot Atriclip Flex V 40mm - [id number] - [id number] Implanted:Qty: 1 on 04/22/2022 by Silvano Shrestha MD at [facility] [employer]ip [id number] 01/20/2025 [id number] / [id number] / Valve Annuloplasty Ring 32mm Ring Carpet Monk - [id number] Implanted:Qty: 1 on 04/22/2022 by Silvano Shrestha MD at [id number] 07/17/2022 [id number] / [id number] / [id number] Pledget Firm Pre-Punched 3mm X 7mm X 1.5mm 10/Pk - [id number] Implanted: 023 by Silvano Shrestha MD at [facility] (Quantity not on file) [id number] / / Pledget Firm Pre-Punched 3mm X 7mm X 1.5mm 10/Pk - [id number] Implanted: 023 by Silvano Shrestha MD at [facility] (Quantity not on file) [id number] / / Procedures Procedure Name Priority Date/Time Associated Diagnosis Comments HEPATITIS C ANTIBODY - ED W/REFLEX TO HCV QUANT PCR STAT 05/25/2023 8:19 PM EDT ED HIV 1/2 ANTIBODY/ANTIGEN SCREEN WITH REFLEX TO HIV I/II DIFFERENTIATION STAT 05/25/2023 8:19 PM EDT HEMOGLOBIN A1C Add-On 05/25/2023 8:19 PM EDT from Last 3 Months or Most Recently Relevant to Health Maintenance Results * ED HIV 1/2 Antibody/Antigen Screen w/Reflex to HIV 1/2 Differentiation (05/25/2023 8:19 PM EDT) [facility] HIV 1 & 2 Antibody/Antigen Screen Non Reactive Non Reactive 05/25/2023 9:47 PM EDT [facility] Comment:Screening for HIV 1 & 2 antibodies, and P24 antigen is NONREACTIVE. No confirmatory testing is required. Blood Venous blood specimen / Unknown Venipuncture / Unknown 05/25/2023 8:19 PM EDT 05/25/2023 9:06 PM EDT us Gela Berumen MD LAB BLOOD ORDERABLES F inal Result [facility] [address] [place] [address] * Hepatitis C Antibody - ED (05/25/2023 8:19 PM EDT) [facility] Hepatitis C Antibody Negative Negative 05/25/2023 9:47 PM EDT [facility] Blood Venous blood specimen / Unknown Venipuncture / Unknown 05/25/2023 8:19 PM EDT 05/25/2023 9:06 PM EDT Gela Berumen MD LAB BLOOD ORDERABLES F inal Result Performing Organization Address City/[facility]/ZIP Co de Phone Number [facility] [address] [place] [address] * (ABNORMAL) Hemoglobin A1c (05/25/2023 8:19 PM EDT) Hemoglobin A1c 8.0(H) <5.7 % 05/26/2023 3:59 AM EDT [facility] Blood Venous blood specimen / Unknown Venipuncture / Unknown 05/25/2023 8:19 PM EDT 05/25/2023 8:22 PM EDT Narrative [facility] - 05/26/2023 3:59 AM EDT HA1C Interpretive Data: Diagnosis of Diabetes: Diabetic > or = 6.5% Pre-diabetic 5.7 to 6.4% Non-diabetic < or = 5.6% Glycemic Targets for Type I and Type II Diabetics: Non- Adults <7.0% Adults <6.0% Children and Adolescents <7.5% Source: [place] [employer]. Standards of medical care in diabetes,2017. Diabetes Care.2017:40 (suppl 1):S1-S135. HbA1c assay performed by an ion-exchange chromatography method that is certified traceable to the DCCT. us Patricia Peterson MD LAB BLOOD ORDERABLES Final R esult Performing Organization Address City/[facility]/ZIP Co de Phone Number [facility] [address] [place] [address] from Last 3 Months or Most Recently Relevant to Health Maintenance Insurance [facility] MEDICARE Advance Directives * Full Code (Latest Code Status on File) Date Activated Date Inactivated Comments 06/03/2023 8:17 PM 06/13/2023 4:59 PM Question Answer Comments Patient has decision-making capacity? Yes * Full Code Date Activated Date Inactivated Comments 05/26/2023 12:14 AM 05/28/2023 7:03 PM Question Answer Comments Patient has decision-making capacity? Yes * Full Code Date Activated Date Inactivated Comments 04/22/2022 2:11 PM 04/27/2022 7:38 PM Question Answer Comments Patient has decision-making capacity? Yes Care Teams Statement Clerks Manager Relationship Specialty Start Date End Date Darron Franz MD [address] [place] [id number] PCP - General 03/31/22 Isaak Jolly MD [address] [place] [id number] Referring Physician Cardiology 03/29/22
--- OUTSIDE RECORDS SUMMARY | 2024-09-16 12:20 | XMS_ITS | Clinical Summary ---
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 Active atorvastatin (LIPITOR) 80 MG tablet Take 40 mg by mouth nightly. Active clopidogrel (PLAVIX) 75 MG tablet Take 75 mg by mouth daily. Active vitamin B-12 (CYANOCOBALAMIN ) 100 MCG tablet Take 1,000 mcg by mouth daily. Active omeprazole (PRILOSEC) 40 MG capsule Take 40 mg by mouth daily. Active warfarin (COUMADIN) 2.5 MG tablet Take 2.5 mg by mouth daily. Active insulin glargine (LANTUS) 100 UNIT/ML injection Inject 5 Units into the skin nightly. 0 05/04/2023 Active buPROPion (WELLBUTRIN SR) 150 MG 12 hr tablet Take 1 tablet by mouth daily. 0 tablet 05/04/2023 Active torsemide (DEMADEX) 10 MG tablet Take 5 tablets by mouth daily. 150 tablet 05/05/2023 Active tamsulosin (FLOMAX) 0.4 MG CAPS Take 1 capsule by mouth nightly. 30 capsule 05/04/2023 Active carvedilol (COREG) 12.5 MG tablet Take 1 tablet by mouth 2 (two) times daily with meals. 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 05/02/2023 Acute urinary retention 04/29/2023 Anasarca associated with disorder of kidney 10/2023 Chronic anticoagulation 04/28/2023 Nonischemic nontraumatic myocardial injury 04/27 Overview (04/28/2023): Related to renal failure and CHF EMMA (acute kidney injury) on CKD 3 04/27/2023 Anemia associated with chronic renal failure 08/2023 Syncope 04/27/2023 Uncontrolled type 2 diabetes mellitus with hyperglycemia, insulin dependent 04/27/2023 Paroxysmal atrial fibrillation 04/27/2023 Hyperkalemia 04/27/2023 Acute on chronic systolic congestive heart failu re 04/27/2023 CAD/CABG/MV repair/atriclip 04/202204/27/2023 Social History Tobacco Use Types Packs/Day Years Used Date Smoking Tobacco: Former Cigarettes Smokeless Tobacco: Never Alcohol Use Standard Drinks/Week Comments Not Currently 0 (1 standard drink = 0.6 oz pur e alcohol) Sex and Gender Information Value Date Recorded Sex Assigned at Not on file Legal Sex Male 2:29 PM EST Gender Identity Not on file Sexual Orientation Not on file Last Filed Vital Signs Vital Sign Reading Time Taken Comments Blood Pressure 130/63 05/04/2023 8:00 PM EDT Pulse 60 05/04/2023 8:00 PM EDT Temperature 36.7 C (98 F) 05/04/2023 8:00 PM EDT Respiratory Rate 18 05/04/2023 8:00 PM EDT Oxygen Saturation 100% 05/04/2023 8:00 PM EDT Inhaled Oxygen Concentration - - Weight 97 kg (213 lb 13.5 oz) 05/04/2023 5:53 AM EDT Height 175.3 cm (5' 9 ) 04/28/2023 5:59 AM EST Body Mass Index 31.58 04/28/2023 5:59 AM EST Plan of Treatment Health Maintenance Due Date Last Done Comments CT Colonography 1963 Colonoscopy 1963 Colorectal Cancer Screening 1965 FIT-DNA 1963 FIT 1963 FOBT 1965 Hepatitis C Screening 1965 Sigmoidoscopy 1963 Pneumococcal Vaccines >50 yo (1 of 2 - PCV) 05/22/1982 Tdap/Td Vaccine >11 yo (1 - Tdap) 05/22/1982 Lung Cancer Screening Risk Assessment 05/22/2013 Shingles (Shingrix) (1 of 2) 05/22/2013 Diabetic ACEI/ARB For Patients with CKD or Hypertension 04/27/2023 Diabetic Eye Exam 04/27/2023 Diabetic Foot Exam 04/27/2023 Diabetic Presence of Metformin 04/27/2023 Diabetic Presence of Statin 04/27/2023 Diabetic Hemoglobin A1C 10/29/2023 04/28/2023 Annual SDOH Screening 02/21/2024 Diabetic Lipid Panel 04/27/2024 04/28/2023 Diabetic Creatinine Level 05/03/20242023, 05/03/2023, 05/02/2023, Additional history exists Influenza Vaccine (#1) 2024 Haemophilus Influenzae Type B (Hib) Vaccine Aged Out No longer eligible based on patient's age to complete this topic Hepatitis A (HepA) Vaccine Aged Out N o longer eligible based on patient's age to complete this topic Hepatitis B (HepB) Vaccine Aged Out N o longer eligible based on patient's age to complete this topic Meningococcal ACWY Aged Out No longer eligible based on patient's age to complete this topic Polio (IPV) Aged Out No longer eligi ble based on patient's age to complete this topic Rotavirus (RV) Vaccine Aged Out No lo nger eligible based on patient's age to complete this topic Procedures Procedure Name Priority Date/Time Associated Diagnosis Comments BASIC METABOLIC PANEL (BMP) Routine 05/04/2023 2:45 AM EDT HEMOGLOBIN A1C Routine 04/28/2023 4:23 AM EST LIPID PANEL Routine 04/28/2023 4:23 AM EST from Last 3 Months or Most Recently Relevant to Health Maintenance Results * (ABNORMAL) Basic Metabolic Panel (BMP) (05/04/2023 2:45 AM EDT) Sodium 131(L) 136 - 145 mmol/L 05/04/2023 3:32 AM EDT [facility] Comment: (note) Excess protein and/or lipids can falsely decrease sodium levels (pseudo hyponatremia). Potassium 4.1 3.5 - 5.1 mmol/L 05/04/2023 3:32 AM [facility] Comment:Falsely elevated pot assium can occur in patients with high WBC or platelet counts. Chloride 100 98 - 107 mmol/L 05/04/2023 3:32 AM [facility] Comment: (note) Falsely elevated chloride levels can be seen in patients taking medications which contain bromide. Carbon Dioxide 20(L) 22 - 29 mmol/L 05/04/2023 3:32 AM [facility] Anion Gap 11 5 - 13 (arb'U) 05/04/2023 3:32 AM [facility] Comment: (note) Calculation- Na - (Cl + CO2) Glucose 157(H) 71 - 99 mg/dL 05/04/2023 3:32 AM [facility] Comment: (note) Reference range based on inpatient hypo/hyperglycemic treatment levels. A random glucose =/>200 is concerning for poor control. Blood Urea Nitrogen (BUN) 77(H) 8 - 26 mg/dL 05/04/2023 3:32 AM [facility] Creatinine-Bloo d 3.57(H) 0.73 - 1.18 mg/dL 05/04/2023 3:32 AM [facility] BUN/Creatinine Ratio 21.6 RATIO 05/04/2023 3:32 AM [facility] Estimated GFR (Cr) 19(L) >60 /1.73 m2 05/04/2023 3:32 AM [facility] Comment: (note) eGFR calculated based on IDMS traceable, enzymatic creatinine method using the CKD-EPI 2020 equation. Calcium 9.0 8.4 - 10.2 mg/dL 05/04/2023 3:32 AM [facility] Plasma BLOOD SPECIMEN FROM PATIENT / Unknown 05/04/2023 2:45 AM EDT 05/04/2023 3:00 AM EDT Arsalan Huizar III, MD LAB BLOOD ORDERAB[place] [address] [place] [address] * (ABNORMAL) Hemoglobin A1C (04/28/2023 4:23 AM EST) Hemoglobin A1C 7.4(H) 4.3 - 5.6 % 04/29/2023 8:42 AM EST [facility] Comment: (note) A1C% Reference Range: 4.3 - 5.6 Normal range 5.7 - 6.4 Pre-diabetic -increased risk for developing diabetes mellitus. >=6.5 Diabetic -diagnostic of diabetes mellitus. Note: For diagnosis of diabetes in individuals without unequivocal hyperglycemia, results should be confirmed by repeat testing. Patients with conditions that shorten erythrocyte survival, such as recovery from acute blood loss, hemolytic anemia, kidney disease, or the presence of unstable hemogloblins like HbSS, HbCC, and HbSC may yield falsely decreased HbA1c test results. Iron deficiency may yield falsely increased HbA1c test results. Estimated Average Glucose 166 mg/dL 04/29/2023 8:42 AM EST [facility] Whole Blood BLOOD SPECIMEN FROM PATIENT / Unknown 04/28/2023 4:23 AM EST 04/28/2023 4:29 AM EST us Arsalan Huizar III, MD LAB BLOOD ORDERABLES F inal Result [facility] [address] [place] [address] [facility] [address] [place] [address] * (ABNORMAL) Lipid panel (REVIEW PROCESS INSTRUCTIONS AT ORDERING AND COLLECTING) (04/28/2023 4:23 AMEST) Pathologist [facility] Triglycerides 128 0 - 149 mg/dL 04/28/2023 4:55 AM EST [facility] Comment: (note) Triglyceride levels (in mg/dL): Normal (0-9yrs: <75, 10-19yrs: <90, >19yrs: <150), Borderline (0-9yrs: 75-99, 10-19yrs: 90-129, >19yrs: 150-199), High/very high (0-9yrs: >99, 10-19yrs: >129, >19yrs: >200) Cholesterol 102 0 - 199 mg/dL 04/28/2023 4:55 AM [facility] Comment: (note) Cholesterol levels (in mg/dL): Desirable <200 adults/<170 children, Borderline-high: 200-239 adults/170-199 children, High >239 adults/>199 children. HDL Cholesterol 28(L) 60 - 9,999 mg/dL 04/28/2023 4:55 AM [facility] LDL Cholesterol-Calcul ated 48 0 - 100 mg/dL 04/28/2023 4:55 AM [facility] Comment: (note) LDL levels (in mg/dL): Optimal <100, Near optimal/above optimal 100-129, Borderline High 130-159, High 160-189, or Very High >189 VLDL 26 0 - 30 mg/dL 04/28/2023 4:55 AM [facility] CHOL/HDL Ratio 3.6 RATIO 04/28/2023 4:55 AM [facility] Is patient fasting? No (arb'U) 04/28/2023 12:09 AM [facility] Plasma specimen (specimen) BLOOD SPECIMEN FROM PATIENT / Unknown 04/28/2023 4:23 AM EST 04/28/2023 4:27 AM EST Arsalan Huizar III, MD LAB BLOOD ORDERABLES F inal Result [facility] [address] [place] [address] [id number] [place] [address] from Last 3 Months or Most Recently Relevant to Health Maintenance Insurance [facility] [facility] MEDICARE REPLACEMENT Advance Directives Documents on File Type Date Recorded Patient Risk Analyst Expl anation Power of Intern Product Marketing Manager 05/08/2023 2:06 PM 02/09 * Full Code (Latest Code Status on File) Date Activated Date Inactivated Comments 04/27/2023 9:15 PM 05/04/2023 11:36 PM Care Teams Restaurant Line Cook Relationship Specialty Start Date End Date System, Provider Not In PCP - General 05/02/23
== END 2024-09-13 23:59 | disposition home or self-care (01) ==
LOC: LAB.DROPOF 09-16 12:12
PROVIDERS: PCP Family Medicine; Visit Provider Family Medicine
DX: E10.628 Type 1 diabetes mellitus with other skin complications (principal); E78.2 Mixed hyperlipidemia; I10 Essential (primary) hypertension
CPT/HCPCS: 80053; 80061; 82043; 82570; 85025